=== PATIENT | male | born 1935 | race Caucasian/White ===

== ENCOUNTER 2019-09-26 07:17 | Outpatient (CLI) | payer MEDICARE, BC, SELFPAY ==
--- NOTE | 2019-09-28 13:12 | ONC FU_ITS ---
Dr. Davies follow up note Patient: Oli Aragon Unit #: [id number]: 1935 Dicatated By: Sae Davies M.D.Date of Visit:Sep 26, 2019 Onc Med Follow-up/Prog Note History of Present Illness: oli Mckeon, 83-year-old gentleman with history of prostate cancer diagnosed with LUZMARIA in June 2009, with his PSA was 16.8 in July 2009 underwent biopsy of prostrate gland final report came back Stephanie score 9 (4+5) and Stephanie's 8 (4+4) CT scan of pelvis in showed right obturator lymph nodes , started on chemotherapy/biotherapy/hormonal therapy Lupron and in February 2010 study showed partial remission and no evidence of disease on scans from April 2010 to May 2010 received radiation therapy 7800 cGy to prostate and pelvic lymph nodes 4500 cGy From January 2013 to January 2014 treated with Casodex with a PSA response In January 2016 he was noted to have disease progression lymph node size was increasing on scan and PSA gone up to 12.8 On 08/04/2016 planning was to started Zytiga/prednisone , PSA 13.1 On 08/30/2016 PSA was 25.3 Now on Lupron last dose was in the January 2017 initially it was given every 3 month since last time his change to every 6 months ?reasons next one is due in July 2017 at [facility] Zytiga was under consideration but because of cost it was not started as per oncology note from [facility] on 01/17/2017 CT scan of abdomen pelvis done at [facility] on 01/17/2017 showed increasing retroperitoneal and right pelvic lymphadenopathy bone scan done on 01/17/2017 showed new foci of uptake involving the sacrum are suspicious for skeletal metastases and new focal uptake at the anterior lateral aspect of the right fourth rib is nonspecific for metastatic versus intraoral trauma incidental small right upper lobe pulmonary nodule is nonspecific follow-up suggested tolerating ADT wit lupron and Zytiga/prednisone well. Came for follow-up, complaining of fullness/pain in right anterior chest for the last few days, denies any trauma to the chest wall but recently he was diagnosed with pneumonia on the left side and now wondering whether pneumonia also regarding the right side otherwise no fever or chills, no hemoptysis or hematemesis, no nausea or vomiting. Occasionally hot flashes. Medications: PredniSONE 1 (5 mg) Tablet Oral b.i.d., Tums 1 (500 mg) Tablet, chewable Oral PRN, Tylenol PM Extra Strength 1 Tablet Liquid Oral at bedtime, Zytiga 1 (1000 mg) Tablet Oral daily Allergies: No Known Allergies. Review of Systems: Constitutional - No fevers, chills, night sweats, excessive fatigue or weight loss, ENMT - Positive for sinus congestion/drainage. No mouth sores. , Hematologic/Lymphatic - Patient states he bruises easily, Respiratory - No dyspnea on exertion, chest pain, cough or hemoptysis, Cardiovascular - No anginal chest pain, palpitations or orthopnea, Gastrointestinal - No nausea, vomiting, diarrhea, GI bleeding, or constipation, Genitourinary (M) - No hematuria, dysuria, increased frequency, urgency, hesitancy or incontinence, Musculoskeletal - Pt reports pressure in his ribs, Neurologic - No headache or dizziness. He does have a constant numbness/tingling feeling in his legs and feet, Psychiatric - He has some anxiety. But denies any depression. No insomnia. Vital Signs: Performed on Sep 26, 2019 08:19 Height - 76.00 in Weight - 193.0 lbs (HIGH) BSA - 2.18 sq.m BMI - 23.49 Temperature - 97.8 F (LOW) Pulse - 70 /min Respiration - 20 /min BP - 121/75 mm(hg) O2 Sat - 97 % Pain - 5 Performance Status: 1 - No physically strenuous activity, but ambulatory and able to carry out light or sedentary work (e.g. office work, light house work). (ECOG) Physical Examination: ENMT - No oral exudates, ulcers, masses, thrush or mucositis. Oropharynx clear. Tongue normal, Respiratory - Lungs are clear to auscultation without rhonchi or wheezing, Cardiovascular - Regular rate and rhythm of heart, Chest - Mild gynecomastia, no right anterior chest wall tenderness or skin changes or masses palpable, Abdomen - Non-tender, non-distended, Good bowel sounds. No guarding or rebound tenderness. No pulsatile masses, Extremities - no edema. Lab/Imaging: Test performed on Jul 31, 2019 07:20 Sodium 139 mmol/L Potassium 4.3 mmol/L Chloride 106 mmol/L CO2 23 mmol/L Anion Gap 14.3 BUN 19 mg/dL Creatinine 0.9 mg/dL Cr Clearance (Est) 78.11 mL/min Glucose 99 mg/dl Calcium 9.3 mg/dL Protein, Total 6.4 g/dL Albumin 4.7 g/dL Globulin 1.7 gm/dL Bilirubin, Total 0.3 mg/dL ALT (SGPT) 12 U/L AST (SGOT) 16 U/L Alkaline Phosphatase 52 U/L PSA 5.81 ng/mL Test performed on Apr 26, 2019 12:03 WBC 6.2 /cmm RBC 4.21 10 6/cmm HGB 14.4 g/dl HCT 41.1 % MCV 97.7 /cmm MCH 34.1 pg MCHC 35.0 g/dl RDW 13.4 % Platelet Count 174 10 3/cmm MPV 8.7 fl Neutrophils 4.8 10 3/cmm Lymphocytes 0.9 10 3/cmm Monocytes 0.5 10 3/cmm Eosinophils 0.0 10 3/cmm Basophils 0.0 10 3/cmm Neutrophil % 77.2 % Lymphocyte % 13.9 % Monocyte % 7.5 % Eosinophil % 0.7 % Basophils % 0.7 % Impression: Adenocarcinoma of prostate,Initially diagnosed in July 2009, status post radiation. Prostate and pelvic lymph nodesin April 2010, now with recurrent with pelvic/retroperitoneal lymphadenopathy and abnormal bone scan[facility]2017 showed no evidence of bony metastatic disease Rising PSA while on Lupron Started on zytiga 1000mg po qd and prednisone 5 mg twice a day on 06/08/2017 in his PSA on June 06/2017 was 134 Fatigue probably multifactorial including hormone withdrawal recent History of fall from the tree, with injury to tailbone and right ribs Bone scan done on 07/20/2017 at [facility] showed 2 new lesions, one in the region of T2 and on in the pelvis likely skeletal metastasis. Multiple ribs lesions probably due to trauma Chest x-ray done on 09/26/2017 showed normal visualized bone structures. No acute changes bone scan done on 09/28/2007 showed metastatic bone disease is stable with no progression or improvement since 07/20/2017 CT scan of abdomen pelvis done on 07/20/2017 at [facility] showed retroperitoneal lymphadenopathy is stable or slightly smaller soft tissue nodule in the Florence's pouch is unchanged New sclerotic lesion in the right anterior sacrum at S1 -S 3 may represent new focus of bone metastases Bone scan done on 07/24/2018 showed no new focus of increased activity, overall decreased activity of previously noted metastatic/posttraumatic changes since 09/28/2017. Unchanged cervicothoracic spine increase activity, probably related to prior anterior fusion changes. CT scan of pelvis done on 07/24/2018 showed no pelvic lymphadenopathy, a small soft tissue nodule measuring 10 mm inseparable from the right iliac vein, has been present since 01/17/2017 Venous Doppler study right leg shows no DVT CT scan of abdomen pelvis done on every 2018 showed incidental left renal cyst without change Prior appendicectomy Stable right-sided pericaval lymph node. Variable appearance of blastic metastatic lesion right sacral luis and right side of S1 vertebral body bone scan done on 11/03/2018 showed increased uptake in right sacrum stable T4 lesion, and resolution of left costochondral lesions Status post radiation therapy to right sacroiliac area Plan: Discussed with patient regarding right anterior chest wall heaviness/discomfort etiology is unclear could be due to gynecomastia due to ADT/Zytiga/prednisone and other possibility could be pleurisy or also concerned about bone metastases as recently his PSA was going up slowly. At this point we'll consider bone scan, plain x-ray right anterior ribs. Patient was advised to try Motrin 1 tablet by mouth every 8 hours for 48 hours. And also heating pad. Patient return to clinic in one month with a PSA, CMP, unless his above-mentioned workup shows otherwise. Signed By: Sae Davies M.D. <<Signature on File>>
== END 2019-09-26 07:18 | disposition home or self-care (01) ==
LOC: ONCMED 07:21
PROVIDERS: Family Provider Nurse Practitioner Family; Visit Provider Internal Medicine Hematology & Oncology
DX: C61 Malignant neoplasm of prostate (principal); C79.51 Secondary malignant neoplasm of bone; C77.5 Secondary and unspecified malignant neoplasm of intrapelvic lymph nodes; R97.21 Rising PSA following treatment for malignant neoplasm of prostate; Z79.818 Long term (current) use of other agents affecting estrogen receptors and estrogen levels; Z79.899 Other long term (current) drug therapy; Z98.1 Arthrodesis status; Z87.01 Personal history of pneumonia (recurrent)
CPT/HCPCS: 99214

== ENCOUNTER 2019-10-29 08:44 | Outpatient (CLI) | payer MEDICARE, BC, SELFPAY ==
--- NOTE | 2019-10-29 08:55 | NM_ITS ---
WS: [id number] NUCLEAR MEDICINE BONE SCAN Radiopharmaceutical: 24.1 Tc-99m MDP mCi IV Injection site: Right forearm Postinjection imaging delay: 1 hr CLINICAL INFORMATION: RE-STAGING EVALUATION/PROSTATE CANCER COMPARISON: , July 20, 2019, September 28, 2017, July 20, 2017, and May 11, 2017. FINDINGS: Bone lesions: Again seen is the area of increased activity involving the right posterior sacrum. This is improved slightly from previous. Stable to improved activity involving the right T4 level and rig ht posterior fourth rib lesions. No other abnormal foci of uptake today. No evidence of disease progr ession. No new areas of metastatic disease. Soft tissue contours: Normal. Kidneys: Normal. Other findings: None. NM/NM bone scan whole body* [id number] IMPRESSION: 1. No evidence of disease progression. No new areas of metastatic disease. 2. Stable to slightly improved metastatic lesion involving the right posterior sacrum 3. Additional stable to improved lesion involving the right T4 vertebral body and posterior fourth rib.
--- NOTE | 2019-10-29 08:55 | XR_ITS ---
WS: [id number] Chest 2 views, 10/29/2019 Clinical Data: PROSTATE CANCER/R SIDE RIB PAIN Comparison: PA and lateral chest, 09/26/2017 Findings: No nodules, masses or effusions are seen. The heart is normal. The pulmonary vascularity is not increased. No pneumonia or pneumothorax is seen. The aortic arch and descending aorta are tortuo us. The patient has had an anterior cervical fusion. XR/XR chest 2V* [id number] Impression: Atherosclerosis.
[2019-10-29 10:39] LABS: Alanine Aminotransferase 12 U/L (0-41); Albumin Level 3.9 g/dL (3.5-5.2); Alkaline Phosphatase 51 IU/L (40-130); Anion Gap 16.1 (5-19); Aspartate Amino Transferase 15 U/L (0-40); Blood Urea Nitrogen 14 mg/dL (8-23); Carbon Dioxide 22 mmol/L (22-29); Chloride 103 mmol/L (98-107); Globulin 2.8 g/dL (1.3-4.6); Glucose 96 mg/dL (65-115); Potassium 4.1 mmol/L (3.5-5.1); Sodium 137 mmol/L (136-145); Total Bilirubin 0.5 mg/dL (0.15-1.2); Total Protein 6.7 g/dL (6.6-8.7)
[2019-10-29 12:43] LABS: Basophils % 0.6 %; Eosinophils % 0.6 %; Hematocrit 40.5 % (42.0-52.0); Lymphocytes # 1.1 10^3/uL (0.8-4.8); Lymphocytes % 19.8 %; Mean Corpuscular HGB Conc 32.1 g/dL (30.0-36.0); Mean Corpuscular Hemoglobin 31.8 pg (28.0-34.0); Mean Platelet Volume 10.1 fL (7.4-10.4); Monocytes # 0.5 10^3/uL (0.2-0.9); Monocytes % 9.4 %; Neutrophils # 3.7 10^3/uL (1.8-7.7); Neutrophils % 69.2 %; Nucleated Red Blood Cells % 0 %; Platelet Count 182 10^3/cmm (130-400); Red Blood Count 4.09 10^6/uL (4.1-5.3); Red Cell Distribution Width 12.9 % (12.1-15.1); White Blood Count 5.3 10^3/uL (4.0-10.0)
== END 2019-10-29 08:45 | disposition home or self-care (01) ==
LOC: RAD 08:51
PROVIDERS: Family Provider Nurse Practitioner Family; PCP Nurse Practitioner Family; Visit Provider Internal Medicine Hematology & Oncology
DX: C61 Malignant neoplasm of prostate (principal); R07.81 Pleurodynia; I70.90 Unspecified atherosclerosis
CPT/HCPCS: 36415; 71046; 78306; 80053; 84153; 85025; A9561

== ENCOUNTER 2019-10-31 12:04 | Outpatient (CLI) | payer MEDICARE, BC, SELFPAY ==
[2019-10-31] MEDS: denosumab 120 mg SDV SUBCUT (13:39)
[2019-10-31] MEDS: leuprolide 22.5 mg Kit IM (13:43)
--- NOTE | 2019-10-31 16:42 | ONC FU_ITS ---
Dr. Davies follow up note Patient: Oli Aragon Unit #: [id number]: 1935 Dicatated By: Sae Davies M.D.Date of Visit:Oct 31, 2019 Onc Med Follow-up/Prog Note History of Present Illness: oli Mckeon, 83-year-old gentleman with history of prostate cancer diagnosed with LUZMARIA in June 2009, with his PSA was 16.8 in July 2009 underwent biopsy of prostrate gland final report came back Stephanie score 9 (4+5) and Stephanie's 8 (4+4) CT scan of pelvis in showed right obturator lymph nodes , started on chemotherapy/biotherapy/hormonal therapy Lupron and in February 2010 study showed partial remission and no evidence of disease on scans from April 2010 to May 2010 received radiation therapy 7800 cGy to prostate and pelvic lymph nodes 4500 cGy From January 2013 to January 2014 treated with Casodex with a PSA response In January 2016 he was noted to have disease progression lymph node size was increasing on scan and PSA gone up to 12.8 On 08/04/2016 planning was to started Zytiga/prednisone , PSA 13.1 On 08/30/2016 PSA was 25.3 Now on Lupron last dose was in the January 2017 initially it was given every 3 month since last time his change to every 6 months ?reasons next one is due in July 2017 at [facility] Zytiga was under consideration but because of cost it was not started as per oncology note from [facility] on 01/17/2017 CT scan of abdomen pelvis done at [facility] on 01/17/2017 showed increasing retroperitoneal and right pelvic lymphadenopathy bone scan done on 01/17/2017 showed new foci of uptake involving the sacrum are suspicious for skeletal metastases and new focal uptake at the anterior lateral aspect of the right fourth rib is nonspecific for metastatic versus intraoral trauma incidental small right upper lobe pulmonary nodule is nonspecific follow-up suggested tolerating ADT wit lupron and Zytiga/prednisone well.follow-up bone scan done on 10/29/2019 shows no evidence of disease progression, no new area of metastatic disease seen. Stable to slightly improved metastatic lesion involving the right posterior sacrum Additional stable to improved lesion involving the right T4 vertebral body and posterior fourth rib. Came for follow-up, complaining of right chest wall and mid back pain now progressive, no trauma to chest wall, no hemoptysis or hematemesis, no fever or chills, no nausea or vomiting, no diarrhea constipation, no dysuria hematuria. Occasionally hot flashes otherwise tolerating Lupron/Zytiga/prednisone /Xgeva, well Medications: PredniSONE 1 (5 mg) Tablet Oral b.i.d., Tums 1 (500 mg) Tablet, chewable Oral PRN, Tylenol PM Extra Strength 1 Tablet Liquid Oral at bedtime, Zytiga 1 (1000 mg) Tablet Oral daily Allergies: No Known Allergies. Review of Systems: Constitutional - No fevers, chills, night sweats, excessive fatigue or weight loss, ENMT - Positive for sinus congestion/drainage. No mouth sores. , Hematologic/Lymphatic - Patient states he bruises easily, Respiratory - No dyspnea on exertion, chest pain, cough or hemoptysis, Cardiovascular - No anginal chest pain, palpitations or orthopnea, Gastrointestinal - No nausea, vomiting, diarrhea, GI bleeding, or constipation, Genitourinary (M) - No hematuria, dysuria, increased frequency, urgency, hesitancy or incontinence, Musculoskeletal - Pt reports pressure in his ribs, Neurologic - No headache or dizziness. He does have a constant numbness/tingling feeling in his legs and feet, Psychiatric - He has some anxiety. But denies any depression. No insomnia. Vital Signs: Vitals are not available for this patient. Performance Status: 0 - Fully active, able to carry on all predisease activities without restrictions. (ECOG) Physical Examination: ENMT - No oral exudates, ulcers, masses, thrush or mucositis. Oropharynx clear. Tongue normal, Respiratory - Lungs are clear to auscultation without rhonchi or wheezing, Cardiovascular - Regular rate and rhythm of heart, Chest - mild discomfort in right upper chest wall and bilateral mild gynecomastia, Abdomen - Non-tender, non-distended, Good bowel sounds. No guarding or rebound tenderness. No pulsatile masses, Extremities - no edema or rash. Lab/Imaging: Test performed on Oct 29, 2019 12:40 WBC 5.3 10 3/uL RBC 4.09 10 6/uL HGB 13.0 g/dL HCT 40.5 % MCV 99.0 fL MCH 31.8 pg MCHC 32.1 g/dL RDW 12.9 % Platelet Count 182 10 3/cmm MPV 10.1 fL Neutrophils 3.7 10 3/uL Lymphocytes 1.1 10 3/uL Monocytes 0.5 10 3/uL Eosinophils 0.0 10 3/uL Basophils 0.0 10 3/uL Neutrophil % 69.2 % Lymphocyte % 19.8 % Monocyte % 9.4 % Eosinophil % 0.6 % Basophils % 0.6 % Test performed on Oct 29, 2019 09:35 Sodium 137 mmol/L Potassium 4.1 mmol/L Chloride 103 mmol/L CO2 22 mmol/L Anion Gap 16.1 BUN 14 mg/dL Creatinine 0.9 mg/dL Cr Clearance (Est) 78.3600 mL/min Glucose 96 mg/dL Calcium 9.0 mg/dL Protein, Total 6.7 g/dL Albumin 3.9 g/dL Globulin 2.8 g/dL Bilirubin, Total 0.5 mg/dL ALT (SGPT) 12 U/L AST (SGOT) 15 U/L Alkaline Phosphatase 51 IU/L PSA 8.70 ng/mL Impression: Adenocarcinoma of prostate,Initially diagnosed in July 2009, status post radiation. Prostate and pelvic lymph nodesin April 2010, now with recurrent with pelvic/retroperitoneal lymphadenopathy and abnormal bone scan. On Lupron at [facility] Bone scan done on 05/11/2017 showed no evidence of bony metastatic disease Rising PSA while on Lupron Started on zytiga 1000mg po qd and prednisone 5 mg twice a day on 06/08/2017 in his PSA on June 06/2017 was 134 Fatigue probably multifactorial including hormone withdrawal recent History of fall from the tree, with injury to tailbone and right ribs Bone scan done on 07/20/2017 at [facility] showed 2 new lesions, one in the region of T2 and on in the pelvis likely skeletal metastasis. Multiple ribs lesions probably due to trauma Chest x-ray done on 09/26/2017 showed normal visualized bone structures. No acute changes bone scan done on 09/28/2007 showed metastatic bone disease is stable with no progression or improvement since 07/20/2017 CT scan of abdomen pelvis done on 07/20/2017 at [facility] showed retroperitoneal lymphadenopathy is stable or slightly smaller soft tissue nodule in the Florence's pouch is unchanged New sclerotic lesion in the right anterior sacrum at S1 -S 3 may represent new focus of bone metastases Bone scan done on 07/24/2018 showed no new focus of increased activity, overall decreased activity of previously noted metastatic/posttraumatic changes since 09/28/2017. Unchanged cervicothoracic spine increase activity, probably related to prior anterior fusion changes. CT scan of pelvis done on 07/24/2018 showed no pelvic lymphadenopathy, a small soft tissue nodule measuring 10 mm inseparable from the right iliac vein, has been present since 01/17/2017 Venous Doppler study right leg shows no DVT CT scan of abdomen pelvis done on every 2018 showed incidental left renal cyst without change Prior appendicectomy Stable right-sided pericaval lymph node. Variable appearance of blastic metastatic lesion right sacral luis and right side of S1 vertebral body bone scan done on 11/03/2018 showed increased uptake in right sacrum stable T4 lesion, and resolution of left costochondral lesions Status post radiation therapy to right sacroiliac area Follow-up bone scan done on 10/29/2019 shows no evidence of disease progression, no new area of metastatic disease Stable to slightly improved metastatic lesion involving the right posterior sacrum Additional stable to improve lesion involving the right T4 vertebral body and posterior fourth rib. Plan: Discussed with patient regarding his labs white blood count 5.3 hemoglobin 13.0 hematocrit 40.5 platelets 182,000 CMP within normal limits PSA 8.70 compared to 5.81 on 07/31/2019 Clinically, patient is doing well but now with progressive right chest wall/mid back pain his bone scan done on 10/29/2019 showed no evidence of disease progression, no new area of metastatic disease. Stable to improved lesion involving the right the for vertebral body and posterior fourth rib. Stable to slightly improved metastatic lesion involving the right posterior sacrum. Because of progressive PSA and right chest wall/mid back pain and now with stable rather improving bone scan finding, we will consider CT PET scan and MRI scan of thoracic spine to assess disease status. If CT PET scan/MRI thoracic spine remained inconclusive, then will consider symptomatic relief and also consider adding Casodex or may switched to another agent like enzalutamide or apalutamide . Patient return to clinic after CT PET scan for further discussion. Signed By: Sae Davies M.D. <<Signature on File>>
== END 2019-10-31 12:05 | disposition home or self-care (01) ==
LOC: ONCMED 12:05
PROVIDERS: Family Provider Nurse Practitioner Family; PCP Nurse Practitioner Family; Visit Provider Internal Medicine Hematology & Oncology
DX: C61 Malignant neoplasm of prostate (principal); C79.51 Secondary malignant neoplasm of bone; C77.5 Secondary and unspecified malignant neoplasm of intrapelvic lymph nodes; G89.3 Neoplasm related pain (acute) (chronic); Z79.818 Long term (current) use of other agents affecting estrogen receptors and estrogen levels; Z79.899 Other long term (current) drug therapy; Z92.3 Personal history of irradiation; Z91.81 History of falling
CPT/HCPCS: 96372; 96402; 99214; J0897; J9217

== ENCOUNTER 2019-11-07 09:56 | Outpatient (CLI) | payer MEDICARE, BC, SELFPAY ==
--- NOTE | 2019-11-07 10:04 | MR_ITS ---
WS: [id number] MRI THORACIC SPINE WITH CONTRAST TECHNIQUE: Sagittal T1, T2 and STIR imaging. Axial T2 imaging. Post gadolinium imaging was obtained. CLINICAL INFORMATION: HX OF CANCER;BACK PAIN;PROSTATE CANCER COMPARISON: Bone scan to 2019 FINDINGS: Mild thoracic curve. Mild thoracic kyphosis. No acute compression. Blastic well-circumscribed low sig nal metastatic lesions involving the T1 vertebral body and T5 vertebral body eccentric to the right a djacent to the pedicle. T1 lesion measures approximately 10 mm and T5 lesion measures approximately 1 4 mm. No abnormal gadolinium enhancement. No significant edema. No other visualized metastatic lesion s. Cord signal is normal. No high-grade central canal stenosis. No epidural disease. Mild chronic compression superior endplate T4 with incidental hemangiomas. Normal visualized thoracic aorta. Prior postoperative changes C5-C6 anterior cervical fusion. MR/MR thoracic spine [id number] IMPRESSION: 1. Blastic well-circumscribed metastatic lesions involving the T1 and T5 verte bral bodies likely previously treated. No significant edema or enhancement. 2. No other visualized metastatic lesions. 3. Cord signal is normal. No high-grade central canal stenosis. 4. Mild chronic compression superior endplate T4 with incidental hemangiomas.
== END 2019-11-07 09:57 | disposition home or self-care (01) ==
LOC: RADSHAW 10:01
PROVIDERS: Family Provider Nurse Practitioner Family; PCP Nurse Practitioner Family; Visit Provider Internal Medicine Hematology & Oncology
DX: C61 Malignant neoplasm of prostate (principal); Z85.9 Personal history of malignant neoplasm, unspecified; M54.9 Dorsalgia, unspecified; D18.09 Hemangioma of other sites
CPT/HCPCS: 72157; A9579

== ENCOUNTER 2019-11-14 09:34 | Outpatient (CLI) | payer MEDICARE, BC, SELFPAY ==
--- NOTE | 2019-11-14 16:43 | ONC FU_ITS ---
Dr. Davies follow up note Patient: Oli Aragon Unit #: [id number]: 1935 Dicatated By: Sae Davies M.D.Date of Visit:Nov 14, 2019 Onc Med Follow-up/Prog Note History of Present Illness: oli Mckeon, 83-year-old gentleman with history of prostate cancer diagnosed with LUZMARIA in June 2009, with his PSA was 16.8 in July 2009 underwent biopsy of prostrate gland final report came back Stephanie score 9 (4+5) and Stephanie's 8 (4+4) CT scan of pelvis in showed right obturator lymph nodes , started on chemotherapy/biotherapy/hormonal therapy Lupron and in February 2010 study showed partial remission and no evidence of disease on scans from April 2010 to May 2010 received radiation therapy 7800 cGy to prostate and pelvic lymph nodes 4500 cGy From January 2013 to January 2014 treated with Casodex with a PSA response In January 2016 he was noted to have disease progression lymph node size was increasing on scan and PSA gone up to 12.8 On 08/04/2016 planning was to started Zytiga/prednisone , PSA 13.1 On 08/30/2016 PSA was 25.3 Now on Lupron last dose was in the January 2017 initially it was given every 3 month since last time his change to every 6 months ?reasons next one is due in July 2017 at [facility] Zytiga was under consideration but because of cost it was not started as per oncology note from [facility] on 01/17/2017 CT scan of abdomen pelvis done at [facility] on 01/17/2017 showed increasing retroperitoneal and right pelvic lymphadenopathy bone scan done on 01/17/2017 showed new foci of uptake involving the sacrum are suspicious for skeletal metastases and new focal uptake at the anterior lateral aspect of the right fourth rib is nonspecific for metastatic versus intraoral trauma incidental small right upper lobe pulmonary nodule is nonspecific follow-up suggested tolerating ADT wit lupron and Zytiga/prednisone well. Follow-up CT PET scan done on 11/10/2019 showed FDG negative, densely sclerotic osseous metastatic disease, consistent with sterilize malignancy. FDG positive lymph nodes in the right common iliac and mediastinal territories consistent with recurrent active malignancy. MRI scan of thoracic spine done on 11/07/2019 showed blastic well circumcised metastatic lesion involving T1 and T5 vertebral bodies likely previous treated, no significant edema or enhancement. No other visualized metastatic lesion. 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 But no history of trauma to his right shoulder or arm or chest wall. No night sweats, no fever or chills, no weight loss. Medications: PredniSONE 1 (5 mg) Tablet Oral b.i.d., Tums 1 (500 mg) Tablet, chewable Oral PRN, Tylenol PM Extra Strength 1 Tablet Liquid Oral at bedtime, Zytiga 1 (1000 mg) Tablet Oral daily Allergies: No Known Allergies. Review of Systems: Constitutional - No fevers, chills, night sweats, excessive fatigue or weight loss, ENMT - Positive for sinus congestion/drainage. No mouth sores. , Hematologic/Lymphatic - Patient states he bruises easily, Respiratory - No dyspnea on exertion, chest pain, cough or hemoptysis, Cardiovascular - No anginal chest pain, palpitations or orthopnea, Gastrointestinal - No nausea, vomiting, diarrhea, GI bleeding, or constipation, Genitourinary (M) - No hematuria, dysuria, increased frequency, urgency, hesitancy or incontinence, Musculoskeletal - Pt reports pressure in his ribs, Neurologic - No headache or dizziness. He does have a constant numbness/tingling feeling in his legs and feet, Psychiatric - He has some anxiety. But denies any depression. No insomnia. Vital Signs: Performed on Nov 14, 2019 09:48 Height - 76.00 in Weight - 194.8 lbs (HIGH) BSA - 2.19 sq.m BMI - 23.71 Temperature - 97.3 F (LOW) Pulse - 57 /min (LOW) Respiration - 20 /min BP - 140/83 mm(hg) O2 Sat - 98 % Pain - 5 Performance Status: 0 - Fully active, able to carry on all predisease activities without restrictions. (ECOG) Physical Examination: ENMT - . No oral exudates, ulcers, masses, thrush or mucositis. Oropharynx clear. Tongue normal, Respiratory - Lungs are clear to auscultation without rhonchi or wheezing, Cardiovascular - Regular rate and rhythm of heart, Abdomen - Non-tender, non-distended, Good bowel sounds. No guarding or rebound tenderness. No pulsatile masses, Extremities - no edema. Lab/Imaging: Test performed on Oct 29, 2019 12:40 WBC 5.3 10 3/uL RBC 4.09 10 6/uL HGB 13.0 g/dL HCT 40.5 % MCV 99.0 fL MCH 31.8 pg MCHC 32.1 g/dL RDW 12.9 % Platelet Count 182 10 3/cmm MPV 10.1 fL Neutrophils 3.7 10 3/uL Lymphocytes 1.1 10 3/uL Monocytes 0.5 10 3/uL Eosinophils 0.0 10 3/uL Basophils 0.0 10 3/uL Neutrophil % 69.2 % Lymphocyte % 19.8 % Monocyte % 9.4 % Eosinophil % 0.6 % Basophils % 0.6 % Test performed on Oct 29, 2019 09:35 Sodium 137 mmol/L Potassium 4.1 mmol/L Chloride 103 mmol/L CO2 22 mmol/L Anion Gap 16.1 BUN 14 mg/dL Creatinine 0.9 mg/dL Cr Clearance (Est) 78.3600 mL/min Glucose 96 mg/dL Calcium 9.0 mg/dL Protein, Total 6.7 g/dL Albumin 3.9 g/dL Globulin 2.8 g/dL Bilirubin, Total 0.5 mg/dL ALT (SGPT) 12 U/L AST (SGOT) 15 U/L Alkaline Phosphatase 51 IU/L PSA 8.70 ng/mL Impression: Adenocarcinoma of prostate,Initially diagnosed in July 2009, status post radiation. Prostate and pelvic lymph nodesin April 2010, now with recurrent with pelvic/retroperitoneal lymphadenopathy and abnormal bone scan[facility]2017 showed no evidence of bony metastatic disease Rising PSA while on Lupron Started on zytiga 1000mg po qd and prednisone 5 mg twice a day on 06/08/2017 in his PSA on June 06/2017 was 134 Fatigue probably multifactorial including hormone withdrawal recent History of fall from the tree, with injury to tailbone and right ribs Bone scan done on 07/20/2017 at [facility] showed 2 new lesions, one in the region of T2 and on in the pelvis likely skeletal metastasis. Multiple ribs lesions probably due to trauma Chest x-ray done on 09/26/2017 showed normal visualized bone structures. No acute changes bone scan done on 09/28/2007 showed metastatic bone disease is stable with no progression or improvement since 07/20/2017 CT scan of abdomen pelvis done on 07/20/2017 at [facility] showed retroperitoneal lymphadenopathy is stable or slightly smaller soft tissue nodule in the Florence's pouch is unchanged New sclerotic lesion in the right anterior sacrum at S1 -S 3 may represent new focus of bone metastases Bone scan done on 07/24/2018 showed no new focus of increased activity, overall decreased activity of previously noted metastatic/posttraumatic changes since 09/28/2017. Unchanged cervicothoracic spine increase activity, probably related to prior anterior fusion changes. CT scan of pelvis done on 07/24/2018 showed no pelvic lymphadenopathy, a small soft tissue nodule measuring 10 mm inseparable from the right iliac vein, has been present since 01/17/2017 Venous Doppler study right leg shows no DVT CT scan of abdomen pelvis done on every 2018 showed incidental left renal cyst without change Prior appendicectomy Stable right-sided pericaval lymph node. Variable appearance of blastic metastatic lesion right sacral luis and right side of S1 vertebral body bone scan done on 11/03/2018 showed increased uptake in right sacrum stable T4 lesion, and resolution of left costochondral lesions Status post radiation therapy to right sacroiliac area Follow-up bone scan done on 10/29/2019 shows no evidence of disease progression, no new area of metastatic disease Stable to slightly improved metastatic lesion involving the right posterior sacrum Additional stable to improve lesion involving the right T4 vertebral body and posterior fourth rib. Plan: Discussed with patient regarding his CT PET scan which shows FDG negative, densely sclerotic osseous metastatic disease consistent with sterilize malignancy and central lymphadenopathy e.g. multiple FDG positive mediastinal lymph nodes and 1.8 cm lymph node in the right common iliac territory has SUV of 11.2 and other FDG positive nodes are present in the right common iliac territory down to the level of internal/external iliac bifurcation. MRI scan of thoracic spine showed no new bone metastases but blastic well circumcised metastatic lesion involving T1 and T5 vertebral body likely previously treated. Mild chronic compression superior Endplate T4 with incidental hemangiomas. His CT PET scan shows extensive central lymphadenopathy and his PSA is mildly elevated around 8, and concern is whether patient has second malignancies like low-grade lymphoma as PSA being mildly elevated and such an extensive central lymphadenopathy is less likely consistent with metastatic prostrate cancer unless his prostrate cancer is transforming into non-secretory type prostrate cancer. At this point we will consider lymph node biopsy, we will discuss with Dr. Cuevas regarding laparoscopic lymph node biopsy of right iliac lymph node if is not possible then will discuss with Dr. Dash regarding mediastinoscopy to obtain mediastinal lymph node. Patient will return to clinic 1 week after biopsy. Signed By: Sae Davies M.D. <<Signature on File>>
== END 2019-11-14 09:35 | disposition home or self-care (01) ==
LOC: ONCMED 09:37
PROVIDERS: Family Provider Nurse Practitioner Family; PCP Nurse Practitioner Family; Visit Provider Internal Medicine Hematology & Oncology
DX: C79.51 Secondary malignant neoplasm of bone (principal); C61 Malignant neoplasm of prostate; C77.5 Secondary and unspecified malignant neoplasm of intrapelvic lymph nodes; F41.9 Anxiety disorder, unspecified; R97.21 Rising PSA following treatment for malignant neoplasm of prostate; Z79.899 Other long term (current) drug therapy; Z79.818 Long term (current) use of other agents affecting estrogen receptors and estrogen levels; Z91.81 History of falling
CPT/HCPCS: 99214

== ENCOUNTER 2019-12-07 06:40 | Day surgery (SDC) | payer MEDICARE, BC, SELFPAY ==
[2019-12-06 15:55] VITALS: BMI 23.5
[2019-12-07] VITALS (9 sets, daily range): BP systolic 123–159; BP diastolic 56–96; PULSE 55–88; RESP 14–22; TEMP 36.1–36.6; O2SAT 94–99; BMI 26.2
[2019-12-07] MEDS: sodium chloride 0.9% 1,000 ML 30 ML IV (07:18)
--- NOTE | 2019-12-07 07:52 | ECG_ITS ---
Measurements Intervals [place] Rate: 52 P: 39 WV: 194 QRS: -64 QRSD: 146 T: -5 QT: 430 QTc: 402 SINUS BRADYCARDIA RIGHT BUNDLE BRANCH BLOCK [120+ ms QRS DURATION, UPRIGHT V1, 40+ ms S IN I/aVL/V4/V5/V6] LEFT ANTERIOR FASCICULAR BLOCK [QRS AXIS <= -45, QR IN I, RS IN II] No previous ECG available for comparison Electronically Signed On 12-07-2019 8:45:43 CDT by Bonilla Jimenez [email or web address]
--- NOTE | 2019-12-07 08:13 | P.ANESASSM_ITS ---
Pre-Anesthetic Assessment Pre-Anesthetic Assessment: Height/Weight: Height 1.83 m Weight 87.543 kg Temp Pulse Resp BP Pulse Ox 97 F L 55 L 18 141/87 96 12/07/19 07:11 12/07/19 07:11 12/07/19 07:11 12/07/19 07:11 12/07/19 07:11 Preop Diagnosis: Mediastinal lymphadenopathy with suspected malignancy Proposed Procedure: Operation Date: 12/07/19 09:00 Proposed Procedures p [place] [id number] R59.0(Not Applicable) - Herbie Dhaliwal MD Last Intake: 18:00 Social: Comment: brief and remote Exam: Pre-Anes Outpt Exam: alert, oriented x 3, clear to auscultation bilaterally and regular rate & rhythm Airway: Submandibular: WNL Cervical ROM: WNL MP: 1 Dentition: Partials CV/HEM: Comments: 2 blocks-moderate HENRY/no angina GI: GI: GERD Anesthetic Plan: ASA status: 3 Anesthesia: General Meds/Allergies 2 Current Medications: Current Medications Generic Name Dose Route Start Last Admin Trade Name Freq PRN Reason Stop Dose Admin Sodium Chloride 1,000 mls @ 30 ml s/hr 12/07/19 07:15 12/07/19 07:18 Sodium Chloride 0.9% IV 12/08/19 07:14 30 mls/hr .Q24H [place] Administration PFSH Anesthesia PFSH: Medical History (Updated 11/28/19 @ 10:50 by Alpesh Dash MD) Adenocarcinoma of prostate Mediastinal adenopathy (Unknown) Family History (Updated 11/28/19 @ 10:17 by Lacey Stroud LPN) Other Cancer Stroke Social History (Updated 11/28/19 @ 10:18 by Lacey Stroud LPN) Smoking and tobacco status: former smoker Alcohol intake: former Data Anesthesia Cardiac Studies: No Data to Display
--- NOTE | 2019-12-07 08:46 | P.HP_ITS ---
Same Day Surgery H&P Indication for Procedure/HPI DATE OF PROCEDURE: December 07, 2019 This is an 83-year-old gentleman coming in for endobronchial ultrasound-guided transbronchial needle aspiration of lymph nodes. The patient has a previous diagnosis of prostate cancer for which he sees Dr. Davies. The patient has been undergoing serial screening CT scans. A PET CT on November 10 revealed intense activity in the subcarinal lymph node. There is also right paratracheal and pelvic lymph node hypermetabolic activity. The patient does not have any significant complaints. No significant cough, sputum production or shortness of breath. No hemoptysis, orthopnea or paroxysmal nocturnal dyspnea. CHIEF COMPLAINT/INDICATIONFOR SURGICAL PROCEDURE: PET positive mediastinal lymphadenopathy in a patient with prostate cancer. PREOP DIAGNOSIS: Mediastinal lymphadenopathy with suspected malignancy PLANNED PROCEDRUE: Bronchoscopy with inspection of airway, possible endobronchial biopsies, endobronchial ultrasound-guided transbronchial needle aspiration of lymph nodes and control of bleeding. Operation Date: 12/07/19 09:00 Proposed Procedures p [place] [id number] R59.0(Not Applicable) - Herbie Dhaliwal MD Medications/Allergies* Home Medications Medication Instructions Recorded Confirmed Type abiraterone 500 mg tablet 1,000 mg PO DAILY 11/27/19 12/07/19 History calcium carbonate 200 mg calcium 200 mg PO Q4H PRN tab 11/27/19 12/07/19 History (500 mg) chewable tablet diphenhydramine 25 1 tab PO .q hs tab 11/27/19 12/07/19 History mg-acetaminophen 500 mg tablet prednisone 5 mg tablet 5 mg PO BID 11/27/19 12/07/19 History Allergies/Adverse Reactions Allergy/AdvReac Type Severity Reaction Status Date / Time No Known Allergies Allergy Unverified 11/27/19 10:42 Current Medications: Generic Name Dose Route Start Last Admin Trade Name Freq PRN Reason Stop Dose Admin Sodium Chloride 1,000 mls @ 30 mls/hr 12/07/19 07:15 12/07/19 07:18 Sodium Chloride 0.9% IV 12/08/19 07:14 30 mls/hr .Q24H [place] Administration Pertinent History/Comorbid Conditions* Medical History (Updated 11/28/19 @ 10:50 by Alpesh Dash MD) Adenocarcinoma of prostate Mediastinal adenopathy (Unknown) Family History (Updated 11/28/19 @ 10:17 by Lacey Stroud LPN) Cancer Stroke Social History Smoking and tobacco status: former smoker Alcohol intake: former Pertinent Exam Findings alert, oriented x 3, clear to auscultation bilaterally and regular rate & rhythm Related Problem List Diagnoses (1) Mediastinal lymphadenopathy: Additional Information: The patient is here with PET positive subcarinal lymphadenopathy. He has a history of about 6 years of smoking. Going to perform the EBUS. And the plan is for the patient to go back home after the procedure. (2) Prostate cancer: Additional Information: The lesion could represent metastatic prostate cancer. The patient will follow-up with me in 2 weeks time. Recommendations Surgery/Procedure today Coding Level of Care Code Acute Clinical Athletic Instructor for Ike Treviño Diagnoses Mediastinal lymphadenopathy R59.0 Prostate cancer C61
[2019-12-07] MEDS: EPINEPHrine 1 mg/mL INJ XX (10:40)
--- NOTE | 2019-12-07 11:29 | SUR.OPER ---
ebus balloon removed intact. one cytology specimen given to Keri in lab. Lab aware other 2 cyt[address] specimens given to Dr Mi
--- NOTE | 2019-12-07 11:30 | SUR.PHASEI ---
1128 PATIENT TO PACU AT THIS TIME FROM OR. RR EVEN AND UNLABORED. PLACED ON SIMPLE MASK AT 8L, SPO2 98%. PATIENT UNRESPONSIVE TO VERBAL STIMULI AT THIS TIME. PROTECTING AIRWAY.
--- NOTE | 2019-12-07 11:30 | PM.OP ---
Operative Report Date of procedure: December 07, 2019 Pre-op Diagnosis: Mediastinal lymphadenopathy with suspected malignancy Post-op diagnosis: same Brief History: 83-year-old gentleman with a history of prostate cancer comes in with hypermetabolic subcarinal lymph node on PET CT scan. Procedure: Name of the procedure: Bronchoscopy with inspection of the airway, bronchoalveolar lavage, endobronchial biopsies, endobronchial ultrasound-guided transbronchial needle aspiration of lymph node and control of bleeding. Indication: Mediastinal lymphadenopathy in a patient with prostate cancer Anesthesia: General anesthesia. Local anesthesia: The margot in the right and left mainstem bronchi were anesthetized with 1% lidocaine, 3 mL. Description of the procedure: The procedure was explained to the patient and the consent was obtained. The patient was brought to the OR. The patient underwent endotracheal intubation for general anesthesia. Following induction of general anesthesia, the bronchoscope was advanced through the ET tube. The lower trachea appeared to be normal, no endotracheal lesion was seen. The margot was sharp. The margot, the right and left mainstem bronchi are anesthetized with 1% lidocaine. In a systematic manner bilateral bronchial tree was then examined. The bronchoscope was advanced into the left mainstem bronchus. There was no erythema,mucus and areas of cobblestoning. The left upper lobe, lingula and left lower lobe bronchi were examined up to the third subsegmental level and no abnormalities were identified. There is no endobronchial lesion, active bleeding or mucous plug. The bronchoscope was then introduced into the right mainstem bronchus. The right upper lobe, right middle lobe and right lower lobe bronchi were examined up to the third subsegmental level and no abnormalities were identified. Anthracotic pigmentation was noted throughout the lung. Endobronchial biopsies were performed from the right middle lobe from the suspected anthracotic pigmented area. The endobronchial ultrasound was introduced through the ET tube. Lymphadenopathy of the subcarinal lymph node group was identified. There was no other significant lymphadenopathy in the mediastinal hilar area. Multiple biopsies were performed from the subcarinal lymph node. Samples: 1. The endobronchial biopsies are sent for histopathology. 2. The transbronchial needle aspiration of station 7 was sent for cytology. Multiple samples were obtained. Complications: There was no immediate complications. Duration of the procedure: 50 minutes.
--- NOTE | 2019-12-07 11:55 | SUR.PHASEI ---
1154 PATIENT TO OPS AT THIS TIME. NO DISTRESS. RR EVEN AND UNLABORED. PATIENT TOLERATING ICE CHIPS WELL.
[2019-12-07] MEDS: ondansetron 2 mg/ML SDV 2 mL 4 MG IVP (12:11)
== END 2019-12-07 13:45 | disposition home or self-care (01) ==
PROVIDERS: Family Provider Nurse Practitioner Family; PCP Nurse Practitioner Family; Visit Provider Internal Medicine Critical Care Medicine
PROC: BB4BZZZ Ultrasonography of Pleura (ICD-10-PCS; CPT 31624; principal; 2019-12-07 09:00)
DX: R59.1 Generalized enlarged lymph nodes (principal); C61 Malignant neoplasm of prostate; Z87.891 Personal history of nicotine dependence; K21.9 Gastro-esophageal reflux disease without esophagitis
CPT/HCPCS: 31624; 31625 ×2; 12345; 88112; 88305; 93005; 93010; 96374; J0171; J1100; J2001; J2405; J2704; J2710; J3010; J3490; J7030

== ENCOUNTER 2019-12-20 12:30 | Outpatient (CLI) | payer MEDICARE, BC, SELFPAY ==
[2019-12-20 14:51] LABS: Basophils % 0.5 %; Eosinophils % 0.5 %; Hematocrit 42.8 % (42.0-52.0); Hemoglobin 13.7 g/dL (11.7-16.6); Lymphocytes # 1.2 10^3/uL (0.8-4.8); Lymphocytes % 18.6 %; Mean Corpuscular Hemoglobin 32.3 pg (28.0-34.0); Mean Corpuscular Volume 100.9 fL (80-94); Mean Platelet Volume 11.8 fL (7.4-10.4); Monocytes # 0.2 10^3/uL (0.2-0.9); Monocytes % 3.5 %; Neutrophils # 4.8 10^3/uL (1.8-7.7); Neutrophils % 76.3 %; Nucleated Red Blood Cells % 0 %; Platelet Count 183 10^3/cmm (130-400); Red Blood Count 4.24 10^6/uL (4.1-5.3); White Blood Count 6.2 10^3/uL (4.0-10.0)
[2019-12-20 15:05] LABS: Alanine Aminotransferase 13 U/L (0-41); Albumin Level 4.2 g/dL (3.5-5.2); Alkaline Phosphatase 59 IU/L (40-130); Anion Gap 19.9 (5-19); Aspartate Amino Transferase 16 U/L (0-40); Blood Urea Nitrogen 22 mg/dL (8-23); Calcium 9.6 mg/dL (8.5-10.5); Carbon Dioxide 22 mmol/L (22-29); Chloride 100 mmol/L (98-107); Globulin 2.4 g/dL (1.3-4.6); Glucose 118 mg/dL (65-115); Osmolality Calculated 284 mOsm/kg (285-295); Potassium 3.9 mmol/L (3.5-5.1); Sodium 138 mmol/L (136-145); Total Bilirubin 0.8 mg/dL (0.15-1.2); Total Protein 6.6 g/dL (6.6-8.7)
== END 2019-12-20 12:31 | disposition home or self-care (01) ==
LOC: ONCMED 14:57
PROVIDERS: Family Provider Nurse Practitioner Family; PCP Nurse Practitioner Family; Visit Provider Internal Medicine Hematology & Oncology
DX: C61 Malignant neoplasm of prostate (principal); C79.51 Secondary malignant neoplasm of bone; C77.5 Secondary and unspecified malignant neoplasm of intrapelvic lymph nodes
CPT/HCPCS: 80053; 85025

== ENCOUNTER 2019-12-21 10:57 | Outpatient (CLI) | payer MEDICARE, BC, SELFPAY ==
--- NOTE | 2019-12-21 11:44 | ONC FU_ITS ---
Dr. Davies follow up note Patient: Oli Aragon Unit #: [id number]: 1935 Dicatated By: Sae Davies M.D.Date of Visit:Dec 21, 2019 Onc Med Follow-up/Prog Note History of Present Illness: oli Mckeon, 83-year-old gentleman with history of prostate cancer diagnosed with LUZMARIA in June 2009, with his PSA was 16.8 in July 2009 underwent biopsy of prostrate gland final report came back Stephanie score 9 (4+5) and Stephanie's 8 (4+4) CT scan of pelvis in showed right obturator lymph nodes , started on chemotherapy/biotherapy/hormonal therapy Lupron and in February 2010 study showed partial remission and no evidence of disease on scans from April 2010 to May 2010 received radiation therapy 7800 cGy to prostate and pelvic lymph nodes 4500 cGy From January 2013 to January 2014 treated with Casodex with a PSA response In January 2016 he was noted to have disease progression lymph node size was increasing on scan and PSA gone up to 12.8 On 08/04/2016 planning was to started Zytiga/prednisone , PSA 13.1 On 08/30/2016 PSA was 25.3 Now on Lupron last dose was in the January 2017 initially it was given every 3 month since last time his change to every 6 months ?reasons next one is due in July 2017 at [facility] Zytiga was under consideration but because of cost it was not started as per oncology note from [facility] on 01/17/2017 CT scan of abdomen pelvis done at [facility] on 01/17/2017 showed increasing retroperitoneal and right pelvic lymphadenopathy bone scan done on 01/17/2017 showed new foci of uptake involving the sacrum are suspicious for skeletal metastases and new focal uptake at the anterior lateral aspect of the right fourth rib is nonspecific for metastatic versus intraoral trauma incidental small right upper lobe pulmonary nodule is nonspecific follow-up suggested tolerating ADT wit lupron and Zytiga/prednisone well. Follow-up CT PET scan done on 11/10/2019 showed FDG negative, densely sclerotic osseous metastatic disease, consistent with sterilize malignancy. FDG positive lymph nodes in the right common iliac and mediastinal territories consistent with recurrent active malignancy. MRI scan of thoracic spine done on 11/07/2019 showed blastic well circumcised metastatic lesion involving T1 and T5 vertebral bodies likely previous treated, no significant edema or enhancement. No other visualized metastatic lesion. Mild chronic compression superior endplate T4 with incidental hemangioma Was referred to pulmonology for evaluation of mediastinal lymphadenopathy, patient underwent bronchoscopy on 12/07/2019 right middle lobe endobronchial biopsy showed benign respiratory mucosa and cartilage. No malignancy identified. Came for follow-up, denies any specific complaints, no fever or chills, no nausea or vomiting, no diarrhea constipation, no new bony pains, no dysuria, occasionally hot flashes or mild fatigue. Otherwise tolerating Xgeva/Lupron/Zytiga/prednisone well Medications: PredniSONE 1 (5 mg) Tablet Oral b.i.d., Tums 1 (500 mg) Tablet, chewable Oral PRN, Tylenol PM Extra Strength 1 Tablet Liquid Oral at bedtime, Zytiga 1 (1000 mg) Tablet Oral daily Allergies: No Known Allergies. Review of Systems: Constitutional - No fevers, chills, night sweats, excessive fatigue or weight loss, ENMT - Positive for sinus congestion/drainage. No mouth sores. , Hematologic/Lymphatic - Patient states he bruises easily, Respiratory - No dyspnea on exertion, chest pain, cough or hemoptysis, Cardiovascular - No anginal chest pain, palpitations or orthopnea, Gastrointestinal - No nausea, vomiting, diarrhea, GI bleeding, or constipation, Genitourinary (M) - No hematuria, dysuria, increased frequency, urgency, hesitancy or incontinence, Musculoskeletal - Pt reports pressure in his ribs, Neurologic - No headache or dizziness. He does have a constant numbness/tingling feeling in his legs and feet, Psychiatric - He has some anxiety. But denies any depression. No insomnia. Vital Signs: Performed on Dec 21, 2019 11:00 Height - 76.00 in Weight - 191.4 lbs (LOW) BSA - 2.17 sq.m BMI - 23.30 Temperature - 97.7 F (LOW) Pulse - 82 /min Respiration - 18 /min BP - 134/75 mm(hg) O2 Sat - 96 % Pain - 0 Performance Status: 0 - Fully active, able to carry on all predisease activities without restrictions. (ECOG) Physical Examination: ENMT - . No oral exudates, ulcers, masses, thrush or mucositis. Oropharynx clear. Tongue normal, Respiratory - Lungs no wheezing, Abdomen - denies abdominal pain, Extremities - no edema seen. Lab/Imaging: Test performed on Dec 20, 2019 12:30 Sodium 138 mmol/L Potassium 3.9 mmol/L Chloride 100 mmol/L CO2 22 mmol/L Anion Gap 19.9 BUN 22 mg/dL Creatinine 1.0 mg/dL Cr Clearance (Est) 71.1800 mL/min Glucose 118 mg/dL Calcium 9.6 mg/dL Protein, Total 6.6 g/dL Albumin 4.2 g/dL Globulin 2.4 g/dL Bilirubin, Total 0.8 mg/dL ALT (SGPT) 13 U/L AST (SGOT) 16 U/L Alkaline Phosphatase 59 IU/L WBC 6.2 10 3/uL RBC 4.24 10 6/uL HGB 13.7 g/dL HCT 42.8 % MCV 100.9 fL MCH 32.3 pg MCHC 32.0 g/dL RDW 13.0 % Platelet Count 183 10 3/cmm MPV 11.8 fL Neutrophils 4.8 10 3/uL Lymphocytes 1.2 10 3/uL Monocytes 0.2 10 3/uL Eosinophils 0.0 10 3/uL Basophils 0.0 10 3/uL Neutrophil % 76.3 % Lymphocyte % 18.6 % Monocyte % 3.5 % Eosinophil % 0.5 % Basophils % 0.5 % Test performed on Oct 29, 2019 09:35 PSA 8.70 ng/mL Impression: Adenocarcinoma of prostate,Initially diagnosed in July 2009, status post radiation. Prostate and pelvic lymph nodesin April 2010, now with recurrent with pelvic/retroperitoneal lymphadenopathy and abnormal bone scan[facility]2017 showed no evidence of bony metastatic disease Rising PSA while on Lupron Started on zytiga 1000mg po qd and prednisone 5 mg twice a day on 06/08/2017 in his PSA on June 06/2017 was 134 Fatigue probably multifactorial including hormone withdrawal recent History of fall from the tree, with injury to tailbone and right ribs Bone scan done on 07/20/2017 at [facility] showed 2 new lesions, one in the region of T2 and on in the pelvis likely skeletal metastasis. Multiple ribs lesions probably due to trauma Chest x-ray done on 09/26/2017 showed normal visualized bone structures. No acute changes bone scan done on 09/28/2007 showed metastatic bone disease is stable with no progression or improvement since 07/20/2017 CT scan of abdomen pelvis done on 07/20/2017 at [facility] showed retroperitoneal lymphadenopathy is stable or slightly smaller soft tissue nodule in the Florence's pouch is unchanged New sclerotic lesion in the right anterior sacrum at S1 -S 3 may represent new focus of bone metastases Bone scan done on 07/24/2018 showed no new focus of increased activity, overall decreased activity of previously noted metastatic/posttraumatic changes since 09/28/2017. Unchanged cervicothoracic spine increase activity, probably related to prior anterior fusion changes. CT scan of pelvis done on 07/24/2018 showed no pelvic lymphadenopathy, a small soft tissue nodule measuring 10 mm inseparable from the right iliac vein, has been present since 01/17/2017 Venous Doppler study right leg shows no DVT CT scan of abdomen pelvis done on every 2018 showed incidental left renal cyst without change Prior appendicectomy Stable right-sided pericaval lymph node. Variable appearance of blastic metastatic lesion right sacral luis and right side of S1 vertebral body bone scan done on 11/03/2018 showed increased uptake in right sacrum stable T4 lesion, and resolution of left costochondral lesions Status post radiation therapy to right sacroiliac area Follow-up bone scan done on 10/29/2019 shows no evidence of disease progression, no new area of metastatic disease Stable to slightly improved metastatic lesion involving the right posterior sacrum Additional stable to improve lesion involving the right T4 vertebral body and posterior fourth rib. Plan: Discussed with patient regarding his labs white blood count 6.2 hemoglobin 13.7 crit 42.8 platelets 183,000 CMP within normal limits PSA is pending and his transbronchial biopsy which showed benign mucosal/cartilage no malignancy seen Clinically, patient doing well with no new signs symptoms tolerating Lupron/ Zytiga/prednisone/Xgeva well but with expected side effects e.g. occasionally hot flashes and generalized weakness. His recently done follow-up CT PET scan showed mediastinal lymphadenopathy and there was a concern regarding second malignancy as considering tumor burden, his PSA was only around 8.70. Patient underwent transbronchial biopsy and as per final pathology report there was no malignancy identified only benign respiratory mucosa and cartilage , whereas Dr. Dhaliwal , seating captain, was confident of good sampling At this point we have 2 options either repeating bronchoscopy and try to get sufficient and appropriate tissue for evaluation or consider mediastinoscopy. Patient opted for repeat bronchoscopy. In that case we will refer him back to Dr. Dhaliwal for evaluation for repeat bronchoscopy/transbronchial biopsy of mediastinal lymph node. Patient scheduled to return to clinic next month for his scheduled dose of Lupron and Xgeva, at that time we'll repeat his PSA again. Signed By: Sae Davies M.D. <<Signature on File>>
== END 2019-12-21 10:58 | disposition home or self-care (01) ==
LOC: ONCMED 10:59
PROVIDERS: Family Provider Nurse Practitioner Family; PCP Nurse Practitioner Family; Visit Provider Internal Medicine Hematology & Oncology
DX: C61 Malignant neoplasm of prostate (principal); C79.51 Secondary malignant neoplasm of bone; Z79.818 Long term (current) use of other agents affecting estrogen receptors and estrogen levels; Z79.52 Long term (current) use of systemic steroids; Z79.899 Other long term (current) drug therapy
CPT/HCPCS: 84153; 99214

== ENCOUNTER 2020-01-30 13:41 | Outpatient (CLI) | payer MEDICARE, BC, SELFPAY ==
[2020-01-30 14:12] LABS: Basophils % 0.5 %; Eosinophils % 0.4 %; Hematocrit 43.1 % (42.0-52.0); Hemoglobin 13.2 g/dL (11.7-16.6); Lymphocytes % 17.5 %; Mean Corpuscular HGB Conc 30.6 g/dL (30.0-36.0); Mean Corpuscular Hemoglobin 32.6 pg (28.0-34.0); Mean Corpuscular Volume 106.4 fL (80-94); Mean Platelet Volume 11.1 fL (7.4-10.4); Monocytes # 0.4 10^3/uL (0.2-0.9); Monocytes % 6.3 %; Neutrophils # 4.2 10^3/uL (1.8-7.7); Neutrophils % 74.6 %; Nucleated Red Blood Cells % 0 %; Platelet Count 190 10^3/cmm (130-400); Red Blood Count 4.05 10^6/uL (4.1-5.3); Red Cell Distribution Width 13.2 % (12.1-15.1); White Blood Count 5.6 10^3/uL (4.0-10.0)
[2020-01-30 15:37] LABS: Prostate Specific Antigen 17.69 ng/mL (0-4)
[2020-01-30 15:48] LABS: Alanine Aminotransferase 16 U/L (0-41); Albumin Level 4.1 g/dL (3.5-5.2); Alkaline Phosphatase 53 IU/L (40-130); Anion Gap 16.4 (5-19); Blood Urea Nitrogen 20 mg/dL (8-23); Calcium 8.9 mg/dL (8.5-10.5); Carbon Dioxide 23 mmol/L (22-29); Chloride 102 mmol/L (98-107); Globulin 2.3 g/dL (1.3-4.6); Glucose 97 mg/dL (65-115); Osmolality Calculated 280 mOsm/kg (285-295); Potassium 4.4 mmol/L (3.5-5.1); Sodium 137 mmol/L (136-145); Total Bilirubin 0.4 mg/dL (0.15-1.2); Total Protein 6.4 g/dL (6.6-8.7)
[2020-01-30 15:50] LABS: Aspartate Amino Transferase 20 U/L (0-40)
[2020-01-30] MEDS: leuprolide 22.5 mg Kit IM (17:14)
[2020-01-30] MEDS: denosumab 120 mg SDV SUBCUT (17:15)
--- NOTE | 2020-01-30 18:25 | ONC FU_ITS ---
Dr. Davies follow up note Patient: Oli Aragon Unit #: [id number]: 1935 Dicatated By: Sae Davies M.D.Date of Visit:January 30, 2020 Onc Med Follow-up/Prog Note History of Present Illness: oli Mckeon, 83-year-old gentleman with history of prostate cancer diagnosed with LUZMARIA in June 2009, with his PSA was 16.8 in July 2009 underwent biopsy of prostrate gland final report came back Stephanie score 9 (4+5) and Stephanie's 8 (4+4) CT scan of pelvis in showed right obturator lymph nodes , started on chemotherapy/biotherapy/hormonal therapy Lupron and in February 2010 study showed partial remission and no evidence of disease on scans from April 2010 to May 2010 received radiation therapy 7800 cGy to prostate and pelvic lymph nodes 4500 cGy From January 2013 to January 2014 treated with Casodex with a PSA response In January 2016 he was noted to have disease progression lymph node size was increasing on scan and PSA gone up to 12.8 On 08/04/2016 planning was to started Zytiga/prednisone , PSA 13.1 On 08/30/2016 PSA was 25.3 Now on Lupron last dose was in the January 2017 initially it was given every 3 month since last time his change to every 6 months ?reasons next one is due in July 2017 at [facility] Zytiga was under consideration but because of cost it was not started as per oncology note from [facility] on 01/17/2017 CT scan of abdomen pelvis done at [facility] on 01/17/2017 showed increasing retroperitoneal and right pelvic lymphadenopathy bone scan done on 01/17/2017 showed new foci of uptake involving the sacrum are suspicious for skeletal metastases and new focal uptake at the anterior lateral aspect of the right fourth rib is nonspecific for metastatic versus intraoral trauma incidental small right upper lobe pulmonary nodule is nonspecific follow-up suggested tolerating ADT wit lupron and Zytiga/prednisone well. Follow-up CT PET scan done on 11/10/2019 showed FDG negative, densely sclerotic osseous metastatic disease, consistent with sterilize malignancy. FDG positive lymph nodes in the right common iliac and mediastinal territories consistent with recurrent active malignancy. MRI scan of thoracic spine done on 11/07/2019 showed blastic well circumcised metastatic lesion involving T1 and T5 vertebral bodies likely previous treated, no significant edema or enhancement. No other visualized metastatic lesion. Mild chronic compression superior endplate T4 with incidental hemangioma Was referred to pulmonology for evaluation of mediastinal lymphadenopathy, patient underwent bronchoscopy on 12/07/2019 right middle lobe endobronchial biopsy showed benign respiratory mucosa and cartilage. No malignancy identified. Came for follow-up, denies any specific complaints, no fever or chills, no nausea or vomiting, no new bony pains, no diarrhea constipation, occasionally hot flashes otherwise tolerating Lupron/Zytiga/prednisone/Xgeva well Medications: PredniSONE 1 (5 mg) Tablet Oral b.i.d., Tums 1 (500 mg) Tablet, chewable Oral PRN, Tylenol PM Extra Strength 1 Tablet Liquid Oral at bedtime, Zytiga 1 (1000 mg) Tablet Oral daily Allergies: No Known Allergies. Review of Systems: Constitutional - No fevers, chills, night sweats, excessive fatigue or weight loss. Appetite is fair. Energy level is appropriate, ENMT - Positive for sinus congestion/drainage. No mouth sores. , Hematologic/Lymphatic - Patient states he bruises easily, Respiratory - No dyspnea on exertion, chest pain, cough or hemoptysis, Cardiovascular - No anginal chest pain, palpitations or orthopnea, Gastrointestinal - No nausea, vomiting, diarrhea, GI bleeding, or constipation, Genitourinary (M) - No hematuria, dysuria, increased frequency, urgency, hesitancy or incontinence, Musculoskeletal - Pt denies pain, Neurologic - No headache or dizziness. He does have a constant numbness/tingling feeling in his legs and feet, Psychiatric - Positive for anxiety, no depression. No insomnia. Vital Signs: Performed on January 30, 2020 15:57 Height - 76.00 in Weight - 191 lbs (LOW) BSA - 2.17 sq.m BMI - 23.25 Temperature - 97.8 F (LOW) Pulse - 65 /min Respiration - 20 /min BP - 137/76 mm(hg) O2 Sat - 92 % (LOW) Pain - 0 Performance Status: 0 - Fully active, able to carry on all predisease activities without restrictions. (ECOG) Physical Examination: ENMT - no mouth sores, Respiratory - Lungs are clear , Cardiovascular - Regular rate and rhythm of heart, Abdomen - soft, bowel sounds present, Extremities - no visible edema. Lab/Imaging: Test performed on Dec 20, 2019 12:30 Sodium 138 mmol/L Potassium 3.9 mmol/L Chloride 100 mmol/L CO2 22 mmol/L Anion Gap 19.9 BUN 22 mg/dL Creatinine 1.0 mg/dL Cr Clearance (Est) 71.1800 mL/min Glucose 118 mg/dL Calcium 9.6 mg/dL Protein, Total 6.6 g/dL Albumin 4.2 g/dL Globulin 2.4 g/dL Bilirubin, Total 0.8 mg/dL ALT (SGPT) 13 U/L AST (SGOT) 16 U/L Alkaline Phosphatase 59 IU/L WBC 6.2 10 3/uL RBC 4.24 10 6/uL HGB 13.7 g/dL HCT 42.8 % MCV 100.9 fL MCH 32.3 pg MCHC 32.0 g/dL RDW 13.0 % Platelet Count 183 10 3/cmm MPV 11.8 fL Neutrophils 4.8 10 3/uL Lymphocytes 1.2 10 3/uL Monocytes 0.2 10 3/uL Eosinophils 0.0 10 3/uL Basophils 0.0 10 3/uL Neutrophil % 76.3 % Lymphocyte % 18.6 % Monocyte % 3.5 % Eosinophil % 0.5 % Basophils % 0.5 % PSA 13.30 ng/mL Impression: Adenocarcinoma of prostate,Initially diagnosed in July 2009, status post radiation. Prostate and pelvic lymph nodesin April 2010, now with recurrent with pelvic/retroperitoneal lymphadenopathy and abnormal bone scan. On Lupron at [facility] Bone scan done on 05/11/2017 showed no evidence of bony metastatic disease Rising PSA while on Lupron Started on zytiga 1000mg po qd and prednisone 5 mg twice a day on 06/08/2017 in his PSA on June 06/2017 was 134 Fatigue probably multifactorial including hormone withdrawal recent History of fall from the tree, with injury to tailbone and right ribs Bone scan done on 07/20/2017 at [facility] showed 2 new lesions, one in the region of T2 and on in the pelvis likely skeletal metastasis. Multiple ribs lesions probably due to trauma Chest x-ray done on 09/26/2017 showed normal visualized bone structures. No acute changes bone scan done on 09/28/2007 showed metastatic bone disease is stable with no progression or improvement since 07/20/2017 CT scan of abdomen pelvis done on 07/20/2017 at [facility] showed retroperitoneal lymphadenopathy is stable or slightly smaller soft tissue nodule in the Florence's pouch is unchanged New sclerotic lesion in the right anterior sacrum at S1 -S 3 may represent new focus of bone metastases Bone scan done on 07/24/2018 showed no new focus of increased activity, overall decreased activity of previously noted metastatic/posttraumatic changes since 09/28/2017. Unchanged cervicothoracic spine increase activity, probably related to prior anterior fusion changes. CT scan of pelvis done on 07/24/2018 showed no pelvic lymphadenopathy, a small soft tissue nodule measuring 10 mm inseparable from the right iliac vein, has been present since 01/17/2017 Venous Doppler study right leg shows no DVT CT scan of abdomen pelvis done on 2018 showed incidental left renal cyst without change Prior appendicectomy Stable right-sided pericaval lymph node. Variable appearance of blastic metastatic lesion right sacral luis and right side of S1 vertebral body bone scan done on 11/03/2018 showed increased uptake in right sacrum stable T4 lesion, and resolution of left costochondral lesions Status post radiation therapy to right sacroiliac area Follow-up bone scan done on 10/29/2019 shows no evidence of disease progression, no new area of metastatic disease Stable to slightly improved metastatic lesion involving the right posterior sacrum Additional stable to improve lesion involving the right T4 vertebral body and posterior fourth rib. Plan: Discussed with patient regarding his labs white blood count 5.6 hemoglobin 13.2 crit 43.1 platelets 190,000 and CMP within normal limits PSA 17.69 compared to 13.3 on 12/20/2019 and 8.7 on 10/29/2019 Clinically, patient is doing well with no new signs symptom but his PSA continued to go up and doubling time less than 6 months . Repeat bronchoscopy was under consideration for biopsy of mediastinal lymphadenopathy as earlier bronchoscopy/biopsy shows no sufficient tissue. Patient said he was waiting for 's call regarding reschedule but due to coronavirus elective procedure were postponed. In the meantime we will consider switching him to enzalutamide 160 mg by mouth daily and discontinue Zytiga/prednisone while continue with Lupron and Xgeva. We'll proceed with Xgeva today and then return to clinic in 1 month after initiation of enzalutamide with CBC CMP and PSA/testosterone All the side effects possible benefits associated with enzalutamide were discussed including but not limited to, generalized weakness and fatigue, hot flashes and in some patient seizure-like activity were mentioned further teaching will done by chemotherapy nurse. And we'll obtain approval from his insurance prior to the treatment. Signed By: Sae Davies M.D. <<Signature on File>>
== END 2020-01-30 13:42 | disposition home or self-care (01) ==
LOC: ONCMED 13:44
PROVIDERS: PCP Nurse Practitioner Family; Visit Provider Internal Medicine Hematology & Oncology
DX: C61 Malignant neoplasm of prostate (principal); C79.51 Secondary malignant neoplasm of bone; C77.8 Secondary and unspecified malignant neoplasm of lymph nodes of multiple regions; R53.83 Other fatigue; R97.21 Rising PSA following treatment for malignant neoplasm of prostate; Z79.899 Other long term (current) drug therapy; Z79.818 Long term (current) use of other agents affecting estrogen receptors and estrogen levels
CPT/HCPCS: 36415; 80053; 84153; 85025; 96372; 96402; 99214; J0897; J9217

== ENCOUNTER 2020-02-14 10:04 | Outpatient (CLI) | payer MEDICARE, BC, SELFPAY ==
--- NOTE | 2020-02-18 12:35 | ONC FU_ITS ---
[facility] Patient Note Patient: Oli Aragon Unit #: [id number]: 1935 Dictated By: Nadine GarrisonDate of Visit: February 14, 2020 Onc MED Follow-Up/Prog Note Chief Complaint: Prostrate cancer History of Present Illness: Mr. Aragon is an 83-year-old gentleman with history of prostate cancer diagnosed with LUZMARIA in June 2009, with his PSA was 16.8 In July 2009, he underwent biopsy of prosrate gland. The final report came back Augusta score 9 (4+5) and Stephanie's 8 (4+4) CT scan of pelvis in showed right obturator lymph nodes. He was started on chemotherapy/biotherapy/hormonal therapy Lupron. In February 2010, followup study showed partial remission and no evidence of disease on scans. from April 2010 to May 2010, he received radiation therapy to a total of 7800 cGy to prostate and pelvic lymph nodes 4500 cGy. From January 2013 to January 2014, he was treated with Casodex with a PSA response. In January 2016 he was noted to have disease progression lymph node size was increasing on scan and PSA gone up to 12.8 On 08/04/2016 plan was to started Zytiga/prednisone , PSA 13.1. On 08/30/2016 PSA was 25.3. His last dose of Lupron was in January 2017. Initially it was given every 3 months and was changed to every 6 months with followup at [facility]. Zytiga was under consideration but because of cost it was not started as per oncology note from [facility] on 01/17/2017. CT scan of abdomen pelvis done at [facility] on 01/17/2017 showed increasing retroperitoneal and right pelvic lymphadenopathy. A bone scan done on 01/17/2017 showed new foci of uptake involving the sacrum are suspicious for skeletal metastases and new focal uptake at the anterior lateral aspect of the right fourth rib. Which is nonspecific for metastatic versus intraoral trauma. Incidental small right upper lobe pulmonary nodule is nonspecific follow-up suggested. In October 2018 Zytiga was obtained for Mr. Cortes. Mr Aragon was tolerating ADT wit lupron and Zytiga/prednisone well. Follow-up CT PET scan done on 11/10/2019 showed FDG negative, densely sclerotic osseous metastatic disease, consistent with sterilize malignancy. FDG positive lymph nodes in the right common iliac and mediastinal territories consistent with recurrent active malignancy. MRI scan of thoracic spine done on 11/07/2019 showed blastic well circumcised metastatic lesion involving T1 and T5 vertebral bodies likely previous treated, no significant edema or enhancement. No other visualized metastatic lesion. Mild chronic compression superior endplate T4 with incidental hemangioma Mr Aragon was referred to pulmonology for evaluation of mediastinal lymphadenopathy. He underwent bronchoscopy on 12/07/2019 right middle lobe. Endobronchial biopsy showed benign respiratory mucosa and cartilage. No malignancy identified. His PSA has continued to elevate and Dr. Davies had recommended changing him to enzalutamide 160 mg p.o. daily and discontinue the Zytiga/prednisone. He will continue with the Xgeva and Lupron. Mr. Aragon is here today for follow-up. He is also due to start Xtandi today. He has obtained the medication via specialty pharmacist and has no questions at this time. He has taken oral chemo before and tolerated this well. He does have Compazine Ativan on hand should he need it. We also discussed using Imodium as needed for diarrhea. He has no complaints today he denies any bone pain. He states he is tired at times but can complete all of his ADLs done without assistance. His ECOG is 0. Past Medical History: Mr. Aragon's medical history is unremarkable. Past Surgical History: Neck surgery in 2014 Appendectomy in 1970 Allergies: No Known Allergies. Medications: Cipro 1 Tablet (of 500 mg) Oral b.i.d. PredniSONE 1 (5 mg) Tablet Oral daily Tums 1 (500 mg) Tablet, chewable Oral PRN Tylenol PM Extra Strength 1 Tablet Liquid Oral at bedtime Xtandi 4 Capsule (of 40 mg) Oral daily Family History: Mr. Aragon's mother at age 89. Mr. Aragon's father at age 94. Social History: Mr. Aragon is and he is retired. Mr. Aragon no longer smokes but had smoked 0.5 packs/day for 6 years. He has no history of drinking. Mr. Aragon reports the following support systems: lives with spouse, significant other, family, or friends, lives in own house, supportive family/friends willing to assist with needs, and adequate transportation available for expected visits. His diet consists of regular meals. He indicates his activity level as: daily activities. Review Of Symptoms: Constitutional Denies fevers, chills, night sweats, excessive fatigue or weight loss. Allergic/Immunologic No reactions. Eyes Denies significant visual changes. No diplopia. No amaurosis. ENMT Denies changes in hearing, sore throat, mouth sores, difficulty or changes in swallowing ability, and/or sinus drainage. Endocrine No diabetes, thyroid disease or hormone replacement. Denies hot flashes or night sweats. Hematologic/Lymphatic Denies easy bruising or bleeding. The patient denies any tender or palpable lymph nodes. Respiratory Denies dyspnea on exertion, chest pain, cough or hemoptysis. Denies orthopnea. Cardiovascular Denies anginal chest pain, palpitations or orthopnea. Gastrointestinal Denies nausea, vomiting, diarrhea, GI bleeding, or constipation. Denies change in bowel habits and/or stool color, no heartburn or early satiety. Genitourinary (M) Denies hematuria, dysuria, increased frequency, urgency, hesitancy or incontinence. Musculoskeletal Denies joint pain, swelling or redness. No decreased range of motion. Integumentary Denies chronic rashes, inflammation, ulcerations or skin changes. Neurologic Denies headache, blurred vision, and no areas of focal weakness or numbness. Normal gait. No sensory problems. Psychiatric Denies insomnia, depression, samson or mood swings. Vital Signs: Performed on February 14, 2020 10:35 Height - 76.00 in Weight - 189.0 lbs (LOW) BSA - 2.16 sq.m BMI - 23.01 Temperature - 97.6 F (LOW) Pulse - 62 /min Respiration - 17 /min BP - 111/70 mm(hg) O2 Sat - 95 % (LOW) Pain - 0,0 - Fully active, able to carry on all predisease activities without restrictions. (ECOG) Physical Examination: Constitutional Alert, oriented, no acute distress. Skin pink, warm and dry. Head Normocephalic; atraumatic. Eyes Conjunctivae and sclerae are clear and without icterus. Pupils are reactive and equal. Neck Supple without masses or thyromegaly. No jugular venous distension. Hematologic/Lymphatic No petechiae or purpura. No tender or palpable lymph nodes in the cervical or supraclavicular areas. Respiratory Lungs are clear to auscultation without rhonchi or wheezing. Cardiovascular Regular rate and rhythm of heart without murmurs,clicks, gallops or rubs. Abdomen Non-tender, non-distended, no masses or ascites. Good bowel sounds noted in all quads. No guarding or rebound tenderness. No pulsatile masses. Back/Spine Non-tender to palpation. Extremities No visible deformities, no cyanosis, clubbing or edema. Musculoskeletal No tenderness or swelling, normal range of motion without obvious weakness. Integumentary No rashes or lesions. Neurologic No sensory or motor deficits, normal cerebellar function, normal gait. Psychiatric Alert and oriented times three. Coherent speech. Verbalizes understanding of our discussions today. Laboratory:Test performed on January 30, 2020 15:07 Sodium 137 mmol/L Potassium 4.4 mmol/L Chloride 102 mmol/L CO2 23 mmol/L Anion Gap 16.4 BUN 20 mg/dL Creatinine 1.0 mg/dL Cr Clearance (Est) 68.59 mL/min Glucose 97 mg/dL Calcium 8.9 mg/dL Protein, Total 6.4 g/dL Albumin 4.1 g/dL Globulin 2.3 g/dL Bilirubin, Total 0.4 mg/dL ALT (SGPT) 16 U/L AST (SGOT) 20 U/L Alkaline Phosphatase 53 IU/L PSA 17.69 ng/mL Test performed on January 30, 2020 13:53 WBC 5.6 10 3/uL RBC 4.05 10 6/uL HGB 13.2 g/dL HCT 43.1 % MCV 106.4 fL MCH 32.6 pg MCHC 30.6 g/dL RDW 13.2 % Platelet Count 190 10 3/cmm MPV 11.1 fL Neutrophils 4.2 10 3/uL Lymphocytes 1.0 10 3/uL Monocytes 0.4 10 3/uL Eosinophils 0.0 10 3/uL Basophils 0.0 10 3/uL Neutrophil % 74.6 % Lymphocyte % 17.5 % Monocyte % 6.3 % Eosinophil % 0.4 % Basophils % 0.5 % Impression: Adenocarcinoma of prostate,Initially diagnosed in July 2009, status post radiation. Prostate and pelvic lymph nodesin April 2010, now with recurrent with pelvic/retroperitoneal lymphadenopathy and abnormal bone scan. On Lupron at [facility] Bone scan done on 05/11/2017 showed no evidence of bony metastatic disease Rising PSA while on Lupron Started on zytiga 1000mg po qd and prednisone 5 mg twice a day on 06/08/2017 in his PSA on June 06/2017 was 134 Fatigue probably multifactorial including hormone withdrawal recent History of fall from the tree, with injury to tailbone and right ribs Bone scan done on 07/20/2017 at [facility] showed 2 new lesions, one in the region of T2 and on in the pelvis likely skeletal metastasis. Multiple ribs lesions probably due to trauma Chest x-ray done on 09/26/2017 showed normal visualized bone structures. No acute changes bone scan done on 09/28/2007 showed metastatic bone disease is stable with no progression or improvement since 07/20/2017 CT scan of abdomen pelvis done on 07/20/2017 at [facility] showed retroperitoneal lymphadenopathy is stable or slightly smaller soft tissue nodule in the Florence's pouch is unchanged New sclerotic lesion in the right anterior sacrum at S1 -S 3 may represent new focus of bone metastases Bone scan done on 07/24/2018 showed no new focus of increased activity, overall decreased activity of previously noted metastatic/posttraumatic changes since 09/28/2017. Unchanged cervicothoracic spine increase activity, probably related to prior anterior fusion changes. CT scan of pelvis done on 07/24/2018 showed no pelvic lymphadenopathy, a small soft tissue nodule measuring 10 mm inseparable from the right iliac vein, has been present since 01/17/2017 Venous Doppler study right leg shows no DVT CT scan of abdomen pelvis done on every 2018 showed incidental left renal cyst without change Prior appendicectomy Stable right-sided pericaval lymph node. Variable appearance of blastic metastatic lesion right sacral luis and right side of S1 vertebral body bone scan done on 11/03/2018 showed increased uptake in right sacrum stable T4 lesion, and resolution of left costochondral lesions Status post radiation therapy to right sacroiliac area Follow-up bone scan done on 10/29/2019 shows no evidence of disease progression, no new area of metastatic disease Stable to slightly improved metastatic lesion involving the right posterior sacrum Additional stable to improve lesion involving the right T4 vertebral body and posterior fourth rib. Follow-up CT PET scan done on 11/10/2019 showed FDG negative, densely sclerotic osseous metastatic disease, consistent with sterilize malignancy. FDG positive lymph nodes in the right common iliac and mediastinal territories consistent with recurrent active malignancy. MRI scan of thoracic spine done on 11/07/2019 showed blastic well circumcised metastatic lesion involving T1 and T5 vertebral bodies likely previous treated, no significant edema or enhancement. No other visualized metastatic lesion. Mild chronic compression superior endplate T4 with incidental hemangioma Mr Aragon was referred to pulmonology for evaluation of mediastinal lymphadenopathy. He underwent bronchoscopy on 12/07/2019 right middle lobe. Endobronchial biopsy showed benign respiratory mucosa and cartilage. No malignancy identified. His PSA has continued to elevate and Dr. Davies had recommended changing him to enzalutamide 160 mg p.o. daily and discontinue the Zytiga/prednisone. He will continue with the Xgeva and Lupron. Plan: 1 Proceed with Xtandi 160 mg po daily starting today. 2 Compazine or Ativan prn nausea. 3. Continue Xgeva, but given every 3 months. Last given 01/30/2020. 4. Weekly CBC, CMP and PSA every month-may have labs drawn closer to home. 5. Plan for followup in 1 month unless he needs us before then and then he would just call us. 6. The patient and family were informed of the treatment plan and specific drugs were discussed. We also discussed how the medication works and identified common side effects including hot flashes, elevated triglycerides, headache, dizziness, hypertension, urticaria, flushing, fatigue, nausea, diarrhea, constipation, joint/muscle pain, heartburn, palpitations, alopecia is reported at < 5%. We discussed that they certainly need to let us know before taking any antioxidants or herbal or further dietary supplements, as we are unsure of how these agents react with the treatment plan and we request that they avoid these products for now. They are informed that it is okay to take the multivitamins. They verbally state that they understand to take all medications as directed by the provider unless otherwise indicated. Instructions for oral care with baking soda and salt water rinses as well as a guide for use of [id number] medication were provided with the treatment plan. They were given specific drug information. They have no questions and verbalized understanding and are willing to proceed with treatment at this time. The majority of this visit (greater than 45 mintues) was spent in face to face communication with this patient and/or his family in regards to plan of care, side effect identification and management. Signed By: Nadine Garrison-, AOCNP Sae Davies MD <<Signature on File>>
== END 2020-02-14 10:05 | disposition home or self-care (01) ==
LOC: ONCMED 10:09
PROVIDERS: PCP Nurse Practitioner Family; Visit Provider Nurse Practitioner
DX: C61 Malignant neoplasm of prostate (principal); C79.51 Secondary malignant neoplasm of bone; R97.21 Rising PSA following treatment for malignant neoplasm of prostate; Z79.818 Long term (current) use of other agents affecting estrogen receptors and estrogen levels; Z79.899 Other long term (current) drug therapy
CPT/HCPCS: 99214

== ENCOUNTER 2020-02-19 08:24 | Outpatient (CLI) | payer MEDICARE, BC, SELFPAY ==
[2020-02-19 09:28] LABS: Basophils % 0.7 %; Eosinophils # 0.1 10^3/uL (0.0-0.8); Eosinophils % 2.1 %; Hematocrit 39.2 % (42.0-52.0); Hemoglobin 12.3 g/dL (11.7-16.6); Lymphocytes # 0.8 10^3/uL (0.8-4.8); Lymphocytes % 14.4 %; Mean Corpuscular HGB Conc 31.4 g/dL (30.0-36.0); Mean Corpuscular Hemoglobin 32.6 pg (28.0-34.0); Monocytes # 0.6 10^3/uL (0.2-0.9); Monocytes % 9.5 %; Neutrophils # 4.2 10^3/uL (1.8-7.7); Neutrophils % 72.8 %; Nucleated Red Blood Cells % 0 %; Platelet Count 216 10^3/cmm (130-400); Red Blood Count 3.77 10^6/uL (4.1-5.3); Red Cell Distribution Width 13.1 % (12.1-15.1); White Blood Count 5.8 10^3/uL (4.0-10.0)
[2020-02-19 09:45] LABS: Alanine Aminotransferase 12 U/L (0-41); Albumin Level 3.5 g/dL (3.5-5.2); Alkaline Phosphatase 41 IU/L (40-130); Anion Gap 12.2 (5-19); Aspartate Amino Transferase 17 U/L (0-40); Blood Urea Nitrogen 15 mg/dL (8-23); Calcium 8.4 mg/dL (8.5-10.5); Carbon Dioxide 22 mmol/L (22-29); Chloride 107 mmol/L (98-107); Globulin 2.3 g/dL (1.3-4.6); Glucose 93 mg/dL (65-115); Osmolality Calculated 280 mOsm/kg (285-295); Potassium 4.2 mmol/L (3.5-5.1); Sodium 137 mmol/L (136-145); Total Bilirubin 0.4 mg/dL (0.15-1.2); Total Protein 5.8 g/dL (6.6-8.7)
== END 2020-02-19 08:25 | disposition home or self-care (01) ==
LOC: ONCMED 08:26
PROVIDERS: PCP Nurse Practitioner Family; Visit Provider Nurse Practitioner
DX: C61 Malignant neoplasm of prostate (principal); C79.51 Secondary malignant neoplasm of bone; C77.5 Secondary and unspecified malignant neoplasm of intrapelvic lymph nodes
CPT/HCPCS: 80053; 85025

== ENCOUNTER 2020-02-27 10:47 | Outpatient (CLI) | payer MEDICARE, BC, SELFPAY ==
[2020-02-27 11:40] LABS: Basophils # 0.1 10^3/uL (0.0-0.1); Eosinophils # 0.2 10^3/uL (0.0-0.8); Eosinophils % 2.9 %; Hematocrit 39.7 % (42.0-52.0); Hemoglobin 12.7 g/dL (11.7-16.6); Lymphocytes # 1.2 10^3/uL (0.8-4.8); Lymphocytes % 23.7 %; Mean Corpuscular Hemoglobin 32.7 pg (28.0-34.0); Mean Corpuscular Volume 102.3 fL (80-94); Mean Platelet Volume 10.5 fL (7.4-10.4); Monocytes # 0.6 10^3/uL (0.2-0.9); Neutrophils # 3.1 10^3/uL (1.8-7.7); Neutrophils % 59.8 %; Nucleated Red Blood Cells % 0 %; Platelet Count 224 10^3/cmm (130-400); Red Blood Count 3.88 10^6/uL (4.1-5.3); White Blood Count 5.1 10^3/uL (4.0-10.0)
[2020-02-27 12:09] LABS: Alanine Aminotransferase 10 U/L (0-41); Albumin Level 3.8 g/dL (3.5-5.2); Alkaline Phosphatase 47 IU/L (40-130); Anion Gap 15.3 (5-19); Aspartate Amino Transferase 17 U/L (0-40); Blood Urea Nitrogen 18 mg/dL (8-23); Calcium 8.9 mg/dL (8.5-10.5); Carbon Dioxide 23 mmol/L (22-29); Chloride 106 mmol/L (98-107); Globulin 2.3 g/dL (1.3-4.6); Glucose 95 mg/dL (65-115); Osmolality Calculated 286 mOsm/kg (285-295); Potassium 4.3 mmol/L (3.5-5.1); Sodium 140 mmol/L (136-145); Total Bilirubin 0.5 mg/dL (0.15-1.2); Total Protein 6.1 g/dL (6.6-8.7)
== END 2020-02-27 10:48 | disposition home or self-care (01) ==
LOC: ONCMED 10:51
PROVIDERS: PCP Nurse Practitioner Family; Visit Provider Nurse Practitioner
DX: C61 Malignant neoplasm of prostate (principal); C79.51 Secondary malignant neoplasm of bone; C77.5 Secondary and unspecified malignant neoplasm of intrapelvic lymph nodes
CPT/HCPCS: 36415; 80053; 84153; 85025

== ENCOUNTER 2020-02-28 14:45 | Outpatient (CLI) | payer MEDICARE, BC, SELFPAY ==
--- NOTE | 2020-02-28 15:53 | ONC FU_ITS ---
Dr. Davies follow up note Patient: Oli Aragon Unit #: [id number]: 1935 Dicatated By: Sae Davies M.D.Date of Visit:Feb 28, 2020 Onc Med Follow-up/Prog Note History of Present Illness: Mr. Aragon is an 84-year-old gentleman with history of prostate cancer diagnosed with LUZMARIA in June 2009, with his PSA was 16.8 In July 2009, he underwent biopsy of prosrate gland. The final report came back Woodland score 9 (4+5) and Stephanie's 8 (4+4) CT scan of pelvis in showed right obturator lymph nodes. He was started on chemotherapy/biotherapy/hormonal therapy Lupron. In February 2010, followup study showed partial remission and no evidence of disease on scans. from April 2010 to May 2010, he received radiation therapy to a total of 7800 cGy to prostate and pelvic lymph nodes 4500 cGy. From January 2013 to January 2014, he was treated with Casodex with a PSA response. In January 2016 he was noted to have disease progression lymph node size was increasing on scan and PSA gone up to 12.8 On 08/04/2016 plan was to started Zytiga/prednisone , PSA 13.1. On 08/30/2016 PSA was 25.3. His last dose of Lupron was in January 2017. Initially it was given every 3 months and was changed to every 6 months with followup at [facility]. Zytiga was under consideration but because of cost it was not started as per oncology note from [facility] on 01/17/2017. CT scan of abdomen pelvis done at [facility] on 01/17/2017 showed increasing retroperitoneal and right pelvic lymphadenopathy. A bone scan done on 01/17/2017 showed new foci of uptake involving the sacrum are suspicious for skeletal metastases and new focal uptake at the anterior lateral aspect of the right fourth rib. Which is nonspecific for metastatic versus intraoral trauma. Incidental small right upper lobe pulmonary nodule is nonspecific follow-up suggested. In October 2018 Zytiga was obtained for Mr. Cortes. Mr Aragon was tolerating ADT wit lupron and Zytiga/prednisone well. Follow-up CT PET scan done on 11/10/2019 showed FDG negative, densely sclerotic osseous metastatic disease, consistent with sterilize malignancy. FDG positive lymph nodes in the right common iliac and mediastinal territories consistent with recurrent active malignancy. MRI scan of thoracic spine done on 11/07/2019 showed blastic well circumcised metastatic lesion involving T1 and T5 vertebral bodies likely previous treated, no significant edema or enhancement. No other visualized metastatic lesion. Mild chronic compression superior endplate T4 with incidental hemangioma Mr Aragon was referred to pulmonology for evaluation of mediastinal lymphadenopathy. He underwent bronchoscopy on 12/07/2019 right middle lobe. Endobronchial biopsy showed benign respiratory mucosa and cartilage. No malignancy identified. His PSA has continued to elevate and had recommended changing him to enzalutamide 160 mg p.o. daily and discontinue the Zytiga/prednisone. He will continue with the Xgeva and Lupron. started Xtandi On February 09, 2020 Came for follow-up of, complaining of mild queasiness and poor appetite since he is on Xtandi, was also feeling weak and rundown since he discontinue Zytiga/prednisone, his primary care physician gave him prednisone 5 mg p.o. daily with that he started feeling somewhat better otherwise tolerating Xtandi well, no diarrhea, no abdominal pain, no fever or chills, no vomiting. No dysuria. But lost about 3 pounds since last because of poor appetite Medications: Cipro 1 Tablet (of 500 mg) Oral b.i.d., PredniSONE 1 (5 mg) Tablet Oral daily, Tums 1 (500 mg) Tablet, chewable Oral PRN, Tylenol PM Extra Strength 1 Tablet Liquid Oral at bedtime, Xtandi 4 Capsule (of 40 mg) Oral daily Allergies: No Known Allergies. Review of Systems: Review of Systems is not available for this patient. Vital Signs: Performed on Feb 28, 2020 14:51 Height - 76.00 in Weight - 187.2 lbs (LOW) BSA - 2.15 sq.m BMI - 22.79 Temperature - 98.1 F (LOW) Pulse - 76 /min Respiration - 22 /min BP - 122/73 mm(hg) O2 Sat - 97 % Pain - 0 Performance Status: 1 - No physically strenuous activity, but ambulatory and able to carry out light or sedentary work (e.g. office work, light house work). (ECOG) Physical Examination: ENMT - No mouth sores, no thrush, no jaundice, Respiratory - Lungs are clear to auscultation, Cardiovascular - Regular rate and rhythm of heart, Abdomen - Soft, bowel sounds present, Extremities - No visible edema or rash. Lab/Imaging: Test performed on January 30, 2020 15:07 Sodium 137 mmol/L Potassium 4.4 mmol/L Chloride 102 mmol/L CO2 23 mmol/L Anion Gap 16.4 BUN 20 mg/dL Creatinine 1.0 mg/dL Cr Clearance (Est) 68.59 mL/min Glucose 97 mg/dL Calcium 8.9 mg/dL Protein, Total 6.4 g/dL Albumin 4.1 g/dL Globulin 2.3 g/dL Bilirubin, Total 0.4 mg/dL ALT (SGPT) 16 U/L AST (SGOT) 20 U/L Alkaline Phosphatase 53 IU/L PSA 17.69 ng/mL Test performed on January 30, 2020 13:53 WBC 5.6 10 3/uL RBC 4.05 10 6/uL HGB 13.2 g/dL HCT 43.1 % MCV 106.4 fL MCH 32.6 pg MCHC 30.6 g/dL RDW 13.2 % Platelet Count 190 10 3/cmm MPV 11.1 fL Neutrophils 4.2 10 3/uL Lymphocytes 1.0 10 3/uL Monocytes 0.4 10 3/uL Eosinophils 0.0 10 3/uL Basophils 0.0 10 3/uL Neutrophil % 74.6 % Lymphocyte % 17.5 % Monocyte % 6.3 % Eosinophil % 0.4 % Basophils % 0.5 % Impression: Adenocarcinoma of prostate,Initially diagnosed in July 2009, status post radiation. Prostate and pelvic lymph nodesin April 2010, now with recurrent with pelvic/retroperitoneal lymphadenopathy and abnormal bone scan. On Elena at [facility] Bone scan done on 05/11/2017 showed no evidence of bony metastatic disease Rising PSA while on Lupron Started on zytiga 1000mg po qd and prednisone 5 mg twice a day on 06/08/2017 in his PSA on June 06/2017 was 134 Fatigue probably multifactorial including hormone withdrawal recent History of fall from the tree, with injury to tailbone and right ribs Bone scan done on 07/20/2017 at [facility] showed 2 new lesions, one in the region of T2 and on in the pelvis likely skeletal metastasis. Multiple ribs lesions probably due to trauma Chest x-ray done on 09/26/2017 showed normal visualized bone structures. No acute changes bone scan done on 09/28/2007 showed metastatic bone disease is stable with no progression or improvement since 07/20/2017 CT scan of abdomen pelvis done on 07/20/2017 at [facility] showed retroperitoneal lymphadenopathy is stable or slightly smaller soft tissue nodule in the Florence's pouch is unchanged New sclerotic lesion in the right anterior sacrum at S1 -S 3 may represent new focus of bone metastases Bone scan done on 07/24/2018 showed no new focus of increased activity, overall decreased activity of previously noted metastatic/posttraumatic changes since 09/28/2017. Unchanged cervicothoracic spine increase activity, probably related to prior anterior fusion changes. CT scan of pelvis done on 07/24/2018 showed no pelvic lymphadenopathy, a small soft tissue nodule measuring 10 mm inseparable from the right iliac vein, has been present since 01/17/2017 Venous Doppler study right leg shows no DVT CT scan of abdomen pelvis done on every 2018 showed incidental left renal cyst without change Prior appendicectomy Stable right-sided pericaval lymph node. Variable appearance of blastic metastatic lesion right sacral luis and right side of S1 vertebral body bone scan done on 11/03/2018 showed increased uptake in right sacrum stable T4 lesion, and resolution of left costochondral lesions Status post radiation therapy to right sacroiliac area Follow-up bone scan done on 10/29/2019 shows no evidence of disease progression, no new area of metastatic disease Stable to slightly improved metastatic lesion involving the right posterior sacrum Additional stable to improve lesion involving the right T4 vertebral body and posterior fourth rib. Follow-up CT PET scan done on 11/10/2019 showed FDG negative, densely sclerotic osseous metastatic disease, consistent with sterilize malignancy. FDG positive lymph nodes in the right common iliac and mediastinal territories consistent with recurrent active malignancy. MRI scan of thoracic spine done on 11/07/2019 showed blastic well circumcised metastatic lesion involving T1 and T5 vertebral bodies likely previous treated, no significant edema or enhancement. No other visualized metastatic lesion. Mild chronic compression superior endplate T4 with incidental hemangioma Mr Aragon was referred to pulmonology for evaluation of mediastinal lymphadenopathy. He underwent bronchoscopy on 12/07/2019 right middle lobe. Endobronchial biopsy showed benign respiratory mucosa and cartilage. No malignancy identified. His PSA has continued to elevate and had recommended changing him to enzalutamide 160 mg p.o. daily and discontinue the Zytiga/prednisone. He will continue with the Xgeva and Lupron. Plan: Discussed with patient regarding his labs white blood count 5.1 hemoglobin 12.7 hematocrit 39.7 platelets 224,000 CMP within normal limits PSA 16.56 compared to 17.69 on January 30, 2020 Clinically, patient is doing reasonably well, tolerating Xtandi well but with expected side effects like nausea/queasiness, poor appetite generalized weakness and fatigue which could be due to discontinuation of prednisone as part of Zytiga/prednisone regimen has since his PMD gave him prednisone 5 mg p.o. daily has some symptoms improved except mild queasiness and poor appetite thus he lost about 3 pounds since last visit. Patient started taking Xtandi on February 09, 2020, and tolerating reasonably well at this point we will add Marinol 5 mg p.o. twice daily to control his symptoms especially queasiness and poor appetite in the meantime advised to continue prednisone 5 mg p.o. daily and Case was discussed with Dr. murcia her acid recovery operator regarding repeating mediastinoscopy to obtain tissue to confirm whether mediastinal lymphadenopathy due to prostate cancer or second primary like low-grade lymphoma or other. Patient underwent mediastinoscopy earlier but it showed benign tissue and now Dr. Murcia, has scheduled him for CT scan of the chest to assess mediastinal lymphadenopathy, if there is any disease progression or stable then he will consider another bronchoscopy and transbronchial lymph node biopsy. In the meantime we will continue with daily Xtandi, and 3 monthly Lupron/Xgeva.And he will return to clinic in 1 month with CBC CMP and PSA Signed By: Sae Davies M.D. <<Signature on File>>
== END 2020-02-28 14:46 | disposition home or self-care (01) ==
PROVIDERS: PCP Nurse Practitioner Family; Visit Provider Internal Medicine Hematology & Oncology
DX: C61 Malignant neoplasm of prostate (principal); C79.51 Secondary malignant neoplasm of bone; C77.5 Secondary and unspecified malignant neoplasm of intrapelvic lymph nodes; Z79.818 Long term (current) use of other agents affecting estrogen receptors and estrogen levels
CPT/HCPCS: 99214

== ENCOUNTER 2020-03-05 09:41 | Outpatient (CLI) | payer MEDICARE, BC, SELFPAY ==
--- NOTE | 2020-03-05 15:00 | CT_ITS ---
WS: [id number] CT CHEST TECHNIQUE: Noncontrast CT of the chest with coronal and sagittal reformatted images. CLINICAL INFORMATION: Mediastinal lymphadenopathy COMPARISON: PET/CT November 10, [address] chest January 27, 2010 DLP: 835.[address] scans at [facility] use at least one of these dose optimization techniques: automat ed exposure control; mA and/or kV adjustment per patient size (includes targeted exams where dose is matched to clinical indication); or iterative reconstruction. FINDINGS: Recent PET CT demonstrated FDG negative diffuse sclerotic osseous metastatic disease consistent with prior treatment. In addition FDG positive lymph nodes were visualized in the mediastinum consistent w ith active disease. Stable previously described FDG avid normal and slightly prominent lymph nodes right hilum, left AP w indow, and subcarinal hilar nodes are stable. Subcarinal lymph node is slightly enlarged measuring 11 mm unchanged from previous. No evidence of progressed lymphadenopathy. Mild chronic emphysematous changes. No acute pulmonary infiltrates. Subsegmental atelectasis in the lung bases. Noncalcified fibrotic appearing nodule right upper lobe measuring 4 mm. Vascular calcification including coronary. No axillary lymphadenopathy. Left renal cyst measuring 5.1 CM. Adrenal glands are normal. Splenic granulomas. Sclerotic FDG negative lesions consistent with jessie ated osseous metastatic disease more prominent at T1, T5 and right fifth rib. CT/CT chest wo con [id number] IMPRESSION: 1. No evidence of progressed metastatic disease. 2. Previously described normal and slightly prominent FDG avid right greater t dwyer left hilar and subcarinal lymph nodes are stable. Largest lymph node is sub carinal measuring 11 mm. 3. Left renal cyst measuring 5.1 CCM. 4. Mild chronic emphysematous changes. No suspicious pulmonary parenchymal abn ormalities. 5. Tiny 4 mm slight fibrotic appearing noncalcified nodule in the right upper lobe stable since November 10, 2019. Recommend 6 month follow-up.
== END 2020-03-05 09:42 | disposition home or self-care (01) ==
LOC: RADWPI 09:46
PROVIDERS: Family Provider Nurse Practitioner Family; PCP Nurse Practitioner Family; Visit Provider Internal Medicine Critical Care Medicine
DX: R59.0 Localized enlarged lymph nodes (principal); N28.1 Cyst of kidney, acquired; J43.8 Other emphysema; R91.1 Solitary pulmonary nodule
CPT/HCPCS: 71250

== ENCOUNTER 2020-03-18 08:14 | Outpatient (CLI) | payer MEDICARE, BC, SELFPAY ==
[2020-03-18 08:58] LABS: Basophils # 0.1 10^3/uL (0.0-0.1); Basophils % 1.2 %; Eosinophils # 0.2 10^3/uL (0.0-0.8); Eosinophils % 4.2 %; Hematocrit 38.5 % (42.0-52.0); Hemoglobin 12.5 g/dL (11.7-16.6); Lymphocytes % 25.6 %; Mean Corpuscular HGB Conc 32.5 g/dL (30.0-36.0); Mean Corpuscular Hemoglobin 32.2 pg (28.0-34.0); Mean Corpuscular Volume 99.2 fL (80-94); Mean Platelet Volume 10.5 fL (7.4-10.4); Monocytes # 0.7 10^3/uL (0.2-0.9); Neutrophils # 2.1 10^3/uL (1.8-7.7); Neutrophils % 52.5 %; Nucleated Red Blood Cells % 0 %; Platelet Count 217 10^3/cmm (130-400); Red Blood Count 3.88 10^6/uL (4.1-5.3); Red Cell Distribution Width 12.8 % (12.1-15.1); White Blood Count 4.1 10^3/uL (4.0-10.0)
[2020-03-18 09:21] LABS: Testosterone Total 2.5 ng/dL (193-740)
[2020-03-18 09:32] LABS: Alanine Aminotransferase 8 U/L (0-41); Albumin Level 3.8 g/dL (3.5-5.2); Alkaline Phosphatase 55 IU/L (40-130); Anion Gap 16.4 (5-19); Aspartate Amino Transferase 16 U/L (0-40); Blood Urea Nitrogen 12 mg/dL (8-23); Calcium 8.7 mg/dL (8.5-10.5); Carbon Dioxide 21 mmol/L (22-29); Chloride 105 mmol/L (98-107); Globulin 2.3 g/dL (1.3-4.6); Glucose 81 mg/dL (65-115); Osmolality Calculated 283 mOsm/kg (285-295); Potassium 3.4 mmol/L (3.5-5.1); Sodium 139 mmol/L (136-145); Total Bilirubin 0.4 mg/dL (0.15-1.2); Total Protein 6.1 g/dL (6.6-8.7)
--- NOTE | 2020-03-18 10:44 | ONC FU_ITS ---
Dr. Davies follow up note Patient: Oli Aragon Unit #: [id number]: 1935 Dicatated By: Sae Davies M.D.Date of Visit:Mar 18, 2020 Onc Med Follow-up/Prog Note History of Present Illness: Mr. Aragon is an 84-year-old gentleman with history of prostate cancer diagnosed with LUZMARIA in June 2009, with his PSA was 16.8 In July 2009, he underwent biopsy of prosrate gland. The final report came back Effie score 9 (4+5) and Stephanie's 8 (4+4) CT scan of pelvis in showed right obturator lymph nodes. He was started on chemotherapy/biotherapy/hormonal therapy Lupron. In February 2010, followup study showed partial remission and no evidence of disease on scans. from April 2010 to May 2010, he received radiation therapy to a total of 7800 cGy to prostate and pelvic lymph nodes 4500 cGy. From January 2013 to January 2014, he was treated with Casodex with a PSA response. In January 2016 he was noted to have disease progression lymph node size was increasing on scan and PSA gone up to 12.8 On 08/04/2016 plan was to started Zytiga/prednisone , PSA 13.1. On 08/30/2016 PSA was 25.3. His last dose of Lupron was in January 2017. Initially it was given every 3 months and was changed to every 6 months with followup at [facility]. Zytiga was under consideration but because of cost it was not started as per oncology note from [facility] on 01/17/2017. CT scan of abdomen pelvis done at [facility] on 01/17/2017 showed increasing retroperitoneal and right pelvic lymphadenopathy. A bone scan done on 01/17/2017 showed new foci of uptake involving the sacrum are suspicious for skeletal metastases and new focal uptake at the anterior lateral aspect of the right fourth rib. Which is nonspecific for metastatic versus intraoral trauma. Incidental small right upper lobe pulmonary nodule is nonspecific follow-up suggested. In October 2018 Zytiga was obtained for Mr. Cortes. Mr Aragon was tolerating ADT wit lupron and Zytiga/prednisone well. Follow-up CT PET scan done on 11/10/2019 showed FDG negative, densely sclerotic osseous metastatic disease, consistent with sterilize malignancy. FDG positive lymph nodes in the right common iliac and mediastinal territories consistent with recurrent active malignancy. MRI scan of thoracic spine done on 11/07/2019 showed blastic well circumcised metastatic lesion involving T1 and T5 vertebral bodies likely previous treated, no significant edema or enhancement. No other visualized metastatic lesion. Mild chronic compression superior endplate T4 with incidental hemangioma Mr Aragon was referred to pulmonology for evaluation of mediastinal lymphadenopathy. He underwent bronchoscopy on 12/07/2019 right middle lobe. Endobronchial biopsy showed benign respiratory mucosa and cartilage. No malignancy identified. His PSA has continued to elevate and had recommended changing him to enzalutamide 160 mg p.o. daily and discontinue the Zytiga/prednisone. He will continue with the Xgeva and Lupron. started Xtandi On February 09, 2020 While waiting for repeat bronchoscopy, follow-up CT scan of chest was done on March 05, 2020 which showed stable previously described FDG avid normal and slightly prominent lymph nodes right hilum, left AP window and subcarinal hilar lymph nodes are stable. Subcarinal lymph node is slightly enlarged measuring 11 mm unchanged from previous scan done on November 10, 2019. No evidence of progressive lymphadenopathy. Mild chronic emphysematous changes seen. No acute pulmonary infiltrates. Noncalcified fibrotic appearing nodule right upper lobe measuring 4 mm. Sclerotic FDG negative lesions consistent with treated osseous metastatic disease more prominent at T1, T5 and right fifth rib. Came for follow-up, denies any specific complaint except poor appetite and generalized weakness and fatigue, patient said he felt better when he was restarted on low-dose prednisone and now he ran out of prescription and not taking it since then he started feeling washed out and now with poor appetite. But denies any headaches denies any visual disturbance denies any seizure-like activity denies any tachycardia or palpitation denies any shortness of breath denies any diarrhea or constipation. Tolerating Xtandi well Along with 3 monthly Lupron and Xgeva. Medications: Tums 1 (500 mg) Tablet, chewable Oral PRN, Tylenol PM Extra Strength 1 Tablet Liquid Oral at bedtime, Xtandi 4 Capsule (of 40 mg) Oral daily Allergies: No Known Allergies. Review of Systems: Review of Systems is not available for this patient. Vital Signs: Performed on Mar 18, 2020 10:04 Height - 76.00 in Weight - 188.0 lbs (HIGH) BSA - 2.16 sq.m BMI - 22.88 Temperature - 98.2 F (LOW) Pulse - 74 /min Respiration - 16 /min BP - 115/71 mm(hg) O2 Sat - 97 % Pain - 0 Performance Status: 1 - No physically strenuous activity, but ambulatory and able to carry out light or sedentary work (e.g. office work, light house work). (ECOG) Physical Examination: ENMT - No mouth sores, no thrush, no, Respiratory - Lungs are clear, Cardiovascular - Regular rate and rhythm of heart, Abdomen - Soft, bowel sounds present, Extremities - No visible edema or rash. Lab/Imaging: Test performed on Mar 18, 2020 08:35 Testosterone, Total 2.5 ng/dL WBC 4.1 10 3/uL RBC 3.88 10 6/uL HGB 12.5 g/dL HCT 38.5 % MCV 99.2 fL MCH 32.2 pg MCHC 32.5 g/dL RDW 12.8 % Platelet Count 217 10 3/cmm MPV 10.5 fL Neutrophils 2.1 10 3/uL Lymphocytes 1.0 10 3/uL Monocytes 0.7 10 3/uL Eosinophils 0.2 10 3/uL Basophils 0.1 10 3/uL Neutrophil % 52.5 % Lymphocyte % 25.6 % Monocyte % 16.0 % Eosinophil % 4.2 % Basophils % 1.2 % NRBC % 0 % PSA 15.870 ng/mL Test performed on January 30, 2020 15:07 Sodium 137 mmol/L Potassium 4.4 mmol/L Chloride 102 mmol/L CO2 23 mmol/L Anion Gap 16.4 BUN 20 mg/dL Creatinine 1.0 mg/dL Cr Clearance (Est) 68.59 mL/min Glucose 97 mg/dL Calcium 8.9 mg/dL Protein, Total 6.4 g/dL Albumin 4.1 g/dL Globulin 2.3 g/dL Bilirubin, Total 0.4 mg/dL ALT (SGPT) 16 U/L AST (SGOT) 20 U/L Alkaline Phosphatase 53 IU/L Impression: Adenocarcinoma of prostate,Initially diagnosed in July 2009, status post radiation. Prostate and pelvic lymph nodesin April 2010, now with recurrent with pelvic/retroperitoneal lymphadenopathy and abnormal bone scan. On Lupron at [facility] Bone scan done on 05/11/2017 showed no evidence of bony metastatic disease Rising PSA while on Lupron Started on zytiga 1000mg po qd and prednisone 5 mg twice a day on 06/08/2017 in his PSA on June 06/2017 was 134 Fatigue probably multifactorial including hormone withdrawal recent History of fall from the tree, with injury to tailbone and right ribs Bone scan done on 07/20/2017 at [facility] showed 2 new lesions, one in the region of T2 and on in the pelvis likely skeletal metastasis. Multiple ribs lesions probably due to trauma Chest x-ray done on 09/26/2017 showed normal visualized bone structures. No acute changes bone scan done on 09/28/2007 showed metastatic bone disease is stable with no progression or improvement since 07/20/2017 CT scan of abdomen pelvis done on 07/20/2017 at [facility] showed retroperitoneal lymphadenopathy is stable or slightly smaller soft tissue nodule in the Florence's pouch is unchanged New sclerotic lesion in the right anterior sacrum at S1 -S 3 may represent new focus of bone metastases Bone scan done on 07/24/2018 showed no new focus of increased activity, overall decreased activity of previously noted metastatic/posttraumatic changes since 09/28/2017. Unchanged cervicothoracic spine increase activity, probably related to prior anterior fusion changes. CT scan of pelvis done on 07/24/2018 showed no pelvic lymphadenopathy, a small soft tissue nodule measuring 10 mm inseparable from the right iliac vein, has been present since 01/17/2017 Venous Doppler study right leg shows no DVT CT scan of abdomen pelvis done on every 2018 showed incidental left renal cyst without change Prior appendicectomy Stable right-sided pericaval lymph node. Variable appearance of blastic metastatic lesion right sacral luis and right side of S1 vertebral body bone scan done on 11/03/2018 showed increased uptake in right sacrum stable T4 lesion, and resolution of left costochondral lesions Status post radiation therapy to right sacroiliac area Follow-up bone scan done on 10/29/2019 shows no evidence of disease progression, no new area of metastatic disease Stable to slightly improved metastatic lesion involving the right posterior sacrum Additional stable to improve lesion involving the right T4 vertebral body and posterior fourth rib. Follow-up CT PET scan done on 11/10/2019 showed FDG negative, densely sclerotic osseous metastatic disease, consistent with sterilize malignancy. FDG positive lymph nodes in the right common iliac and mediastinal territories consistent with recurrent active malignancy. MRI scan of thoracic spine done on 11/07/2019 showed blastic well circumcised metastatic lesion involving T1 and T5 vertebral bodies likely previous treated, no significant edema or enhancement. No other visualized metastatic lesion. Mild chronic compression superior endplate T4 with incidental hemangioma Mr Aragon was referred to pulmonology for evaluation of mediastinal lymphadenopathy. He underwent bronchoscopy on 12/07/2019 right middle lobe. Endobronchial biopsy showed benign respiratory mucosa and cartilage. No malignancy identified. His PSA has continued to elevate and had recommended changing him to enzalutamide 160 mg p.o. daily and discontinue the Zytiga/prednisone. He will continue with the Xgeva and Lupron. Plan: Discussed with patient regarding his labs white blood count 4.1 hemoglobin 12.5 hematocrit 30.8.5 platelets 217,000 CMP within normal limits PSA 15.87 compared to 16.56 on February 27, 2020 and 17.69 on January 30, 2020 And follow-up CT scan of chest done on March 05, 2020 which showed stable mild/moderate mediastinal lymphadenopathy. Clinically, patient doing well with no signs symptoms suggestive of disease progression, tolerating Xtandi well along with Lupron/Xgeva. As far as generalized weakness and fatigue is concerned could be multifactorial, patient was on low-dose prednisone with Zytiga for long time, so his symptoms could be due to recently discontinued low-dose prednisone, as patient said when his PMD restarted it it did help. So we will start him back on prednisone 5 mg p.o. twice a day and would not consider repeat bronchoscopy as his follow-up CT scan of chest showed stable mediastinal lymphadenopathy, now follow-up labs showed PSA is stabilized rather dropping slowly but gradually, will continue with Xtandi/Lupron/Xgeva then he will return to clinic in 1 month with CBC CMP and PSA/testosterone Signed By: Sae Davies M.D. <<Signature on File>>
== END 2020-03-18 08:15 | disposition home or self-care (01) ==
LOC: ONCMED 08:17
PROVIDERS: PCP Nurse Practitioner Family; Visit Provider Internal Medicine Hematology & Oncology
DX: C61 Malignant neoplasm of prostate (principal); C79.51 Secondary malignant neoplasm of bone; R59.0 Localized enlarged lymph nodes; R53.1 Weakness; R53.83 Other fatigue; Z79.818 Long term (current) use of other agents affecting estrogen receptors and estrogen levels; Z79.899 Other long term (current) drug therapy
CPT/HCPCS: 36415; 80053; 84153; 84403; 85025; 99214

== ENCOUNTER 2020-03-27 05:49 | Day surgery (SDC) | payer MEDICARE, BC, SELFPAY ==
[2020-03-26 13:35] VITALS: BMI 23.3
[2020-03-27] VITALS (7 sets, daily range): BP systolic 119–135; BP diastolic 75–79; PULSE 55–61; RESP 13–25; TEMP 36.1–36.6; O2SAT 94–98
[2020-03-27] MEDS: sodium chloride 0.9% 1,000 ML 30 ML IV (06:18)
--- NOTE | 2020-03-27 06:43 | ANES.PREANE2 ---
Pre-Anesthetic Assessment Pre-Anesthetic Assessment: Height/Weight: Height 1.93 m Weight 87.09 kg Temp Pulse Resp BP Pulse Ox 97.6 F 60 16 131/79 96 03/27/20 06:07 03/27/20 06:07 03/27/20 06:07 03/27/20 06:07 03/27/20 06:07 Preop Diagnosis: Mediastinal lymphadenopathy with suspected malignancy Proposed Procedure: Operation Date: 03/27/20 07:00 Proposed Procedures p Ebus(Not Applicable) - Herbie Dhaliwal MD Last intake: Intake Last Liquid Date 03/26/20 Last Liquid Time 18:00 Last Solid Date 03/26/20 Last Solid Time 18:00 Social: Social History: No alcohol and No tobacco Exam: Pre-Anes Outpt Exam: alert, oriented x 3, clear to auscultation bilaterally and regular rate & rhythm Airway: Submandibular: WNL Cervical ROM: WNL MP: 1 Dentition: Other (poor dentation) History/ROS: No significant history except as noted Pulmonary: Pulmonary: None reported CV/HEM: CV/HEM: None reported : Comments: h/o prostate ca Hepatic: Hepatic: None reported GI: GI: None reported Metabolic: Metabolic: None reported Musc/skel: Musc/skel: None reported Neuropsych: Neuropsych: None reported Anesthetic Plan: ASA status: 2 Anesthesia: Anesthesia Evaluation and General Risk of > 500 ml blood loss (7ml/kg in children): No Meds/Allergies Current Medications: Current Medications Generic Name Dose Route Start Last Admin Trade Name Freq PRN Reason Stop Dose Admin Sodium Chloride 1,000 mls @ 30 ml s/hr 03/27/20 05:45 03/27/20 06:18 Sodium Chloride 0.9% IV 03/28/20 05:44 30 mls/hr .Q24H [place] Administration PFSH Anesthesia PFSH: Medical History Adenocarcinoma of prostate Mediastinal adenopathy (Unknown) Surgical History H/O neck surgery History of appendectomy Family History Other Cancer Stroke Social History Smoking and tobacco status: former smoker Quit status (tobacco): has quit using tobacco Year quit tobacco: 1970 - 1PPD x 5 Years Second hand smoke exposure: No Alcohol intake: former Lives independently: Yes Household members: spouse Marital status: Current occupational status: retired History of recent travel: No Current gender identity: Male Data Anesthesia Cardiac Studies: No Data to Display
--- NOTE | 2020-03-27 06:44 | P.HPUD_ITS ---
Surgery/Procedure H&P Update DATE OF PROCEDURE: March 27, 2020 DATE H&P PERFORMED: 02/18/20 H&P UPDATE INFORMATION: I have reviewed H&P completed within last 30 days, I have examined patient prior to procedure and No changes to prior documentation PREOP DIAGNOSIS: Mediastinal lymphadenopathy with suspected malignancy with history of prost PLANNED PROCEDURE: Bronchoscopy with inspection of the airway, endobronchial so und guided transbronchial aspiration of lymph nodes. Special treatments. Operation Date: 03/27/20 07:00 Proposed Procedures p Ebus(Not Applicable) - Herbie Dhaliwal MD
--- NOTE | 2020-03-27 06:47 | P.HPUD_ITS ---
Surgery/Procedure H&P Update DATE OF PROCEDURE: March 27, 2020 DATE H&P PERFORMED: 02/18/20 H&P UPDATE INFORMATION: I have examined patient prior to procedure and H&P is in [facility] on date indicated PREOP DIAGNOSIS: Mediastinal lymphadenopathy with suspected malignancy PRIMARY INDICATION FOR PROCEDURE: This is an 84-year-old gentleman with a history of prostate cancerthis is an 83-year-old gentleman with a history of prostate cancer coming in for bronchoscopy evaluation for metastatic lymphadenopathy. The patient had a previous endobronchial sound guided transbronchial needle aspiration of station 7 lymph node we did not reveal any evidence of malignancy. On repeat CT scan the patient still had subcarinal lymphadenopathy. PLANNED PROCEDURE: Bronchoscopy inspection of the airway, endobronchial ultrasound-guided transbronchial aspiration of lymph nodes. Operation Date: 03/27/20 07:00 Proposed Procedures p Ebus(Not Applicable) - Herbie Dhaliwal MD Related Problem List Diagnoses (1) Mediastinal lymphadenopathy: (2) Prostate cancer:
[2020-03-27] MEDS: lidocaine 1% INJ 20 mL SUBCUT (07:15)
--- NOTE | 2020-03-27 08:35 | PM.OP ---
Operative Report Date of procedure: March 27, 2020 Pre-op Diagnosis: Mediastinal lymphadenopathy with suspected malignancy Post-op diagnosis: same Brief History: This is an 84-year-old gentleman coming in for bronchoscopy and endobronchial sound guided transbronchial aspiration of lymph nodes for suspicion of metastatic prostate cancer are lymphoma. Procedure: Name of the procedure: Bronchoscopy with inspection of the airway,endobronchial ultrasound-guided transbronchial needle aspiration of lymph nodes and control of bleeding. Indication: Right external lymphadenopathy Anesthesia: General anesthesia. Local anesthesia: The margot in the right and left mainstem bronchi were anesthetized with 1% lidocaine, 3 mL. Description of the procedure: The procedure was explained to the patient and the consent was obtained. The patient was brought to the OR. The patient underwent endotracheal intubation for general anesthesia. Following induction of general anesthesia, the bronchoscope was advanced through the ET tube. The lower trachea appeared to be normal. The margot was sharp. The margot, the right and left mainstem bronchi are anesthetized with 1% lidocaine. In a systematic manner bilateral bronchial tree was then examined. The bronchoscope was advanced into the left mainstem bronchus. The left upper lobe, lingula and left lower lobe bronchi were examined up to the third subsegmental level and no abnormalities were identified. There is no endobronchial lesion, active bleeding or mucous plug. The bronchoscope was then introduced into the right mainstem bronchus. The right upper lobe, right middle lobe and right lower lobe bronchi were examined up to the third subsegmental level and no abnormalities were identified. 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 The endobronchial ultrasound was introduced through the ET tube. Lymphadenopathy and subcarinal lymph node was identified. There is no significant hilar lymphadenopathy. Fine-needle aspiration was performed from station 7 lymph nodes. Samples: 1. The fine-needle aspiration from station 7 lymph node was sent for cytology. Complications: There was no immediate complications. The patient was extubated and brought to the PACU in stable condition.
== END 2020-03-27 09:30 | disposition home or self-care (01) ==
PROVIDERS: PCP Nurse Practitioner Family; Visit Provider Internal Medicine Critical Care Medicine
PROC: BB4BZZZ Ultrasonography of Pleura (ICD-10-PCS; principal; 2020-03-27 07:00)
PROC: 0BJ08ZZ Inspection of Tracheobronchial Tree, Via Natural or Artificial Opening Endoscopic (ICD-10-PCS; CPT 31622; 2020-03-27 07:00)
DX: R59.1 Generalized enlarged lymph nodes (principal); Z85.46 Personal history of malignant neoplasm of prostate; Z87.891 Personal history of nicotine dependence; Z79.52 Long term (current) use of systemic steroids; J30.9 Allergic rhinitis, unspecified
CPT/HCPCS: 12345; 31628; 88112; 88173; 88305; J2370; J2704; J3010; J3490; J7030

== ENCOUNTER 2020-04-23 08:18 | Emergency (ER) | payer MEDICARE, BC, SELFPAY ==
[2020-04-23 08:25] VITALS: BP 116/72; PULSE 85; RESP 18; TEMP 36.5; O2SAT 97; BMI 21.4
[2020-04-23 08:32] VITALS: BP 113/77; PULSE 75; RESP 17; O2SAT 98
--- NOTE | 2020-04-23 08:37 | CTR_ITS ---
PROCEDURE INFORMATION: Exam: CT Abdomen And Pelvis With Contrast Exam date and time: 04/23/2020 8:38 AM Age: 84 years old Clinical indication: Abdominal pain; Generalized; Prior surgery; Surgery type: Appy; Patient HX: HX of prostate cancer; Additional info: Abd pain TECHNIQUE: Imaging protocol: Computed tomography of the abdomen and pelvis with intravenous contrast. Radiation optimization: All CT scans at this facility use at least one of these dose optimization techniques: automated exposure control; mA and/or kV adjustment per patient size (includes targeted exams where dose is matched to clinical indication); or iterative reconstruction. Contrast material: VISIPAQUE; Contrast volume: 95 ml; Contrast route: INTRAVENOUS (IV); COMPARISON: [place] [id number] 11/03/2018 8:59 AM RADIATION DOSE METRICS: Total DLP (mGy-cm): 558.36 FINDINGS: Lungs: Mild atelectasis right lung base. Parenchymal band left lung base. Liver: Normal. No mass. Gallbladder and bile ducts: Normal. No calcified stones. No ductal dilation. Pancreas: Normal. No ductal dilation. Spleen: Splenic granulomas are present. Adrenals: Normal. No mass. Kidneys and ureters: 4 cm left renal cyst. Simple. Stomach and bowel: Moderate amount stool within the large bowel. Appendix: Prior appendectomy by history. Intraperitoneal space: No free fluid within the pelvis or within the dependent portions of the peritoneum. Vasculature: Calcification of the aorta. Lymph nodes: Unremarkable. No enlarged lymph nodes. Bladder: Unremarkable as visualized. Reproductive: Unremarkable as visualized. Bones/joints: Degenerative changes are present within the spine. Pars defect L5. Bony sclerosis right sacrum at the level of the sacral ala. Stable. Pars defect L5 with a grade 1 spondylolisthesis. Bony sclerosis within the adjacent 1st sacral segment previously noted. Soft tissues: Numerous venous varicosities about the mons pubis. 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 Other findings: No acute intra-abdominal process. No inflammatory process. No obstruction. CT/CT abdomen pelvis w con* [id number] IMPRESSION: 1. No acute intra-abdominal process. No inflammatory process. No obstruction. 2. No free fluid within the pelvis or within the dependent portions of the peritoneum. 3. Moderate amount stool within the large bowel. 4. Numerous venous varicosities about the mons pubis. 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 5. 4 cm left renal cyst. Simple. 6. Prior appendectomy by history. 7. Pars defect L5 with a grade 1 spondylolisthesis. Bony sclerosis within the adjacent 1st sacral segment previously noted. Radiation Dose CTDIVOL = (mGy): DLP = 558.36 (mGy-cm)
--- NOTE | 2020-04-23 08:39 | W.ED.NAVMDI ---
HPI - Nausea/Vomiting/Diarrhea General: Chief complaint: Nausea/Vomiting/Diarrhea Stated complaint: NOT EATING/NEW MEDS Time Seen by Provider: 04/23/20 08:30 History of Present Illness: HPI Narrative: 84-year-old male comes for nausea and diarrhea been going home for last 5 weeks. He was seen yesterday at primary care doctors and thought to have this diverticulitis/colitis started on Flagyl Cipro and Bentyl. He has a history of adenoCA of the prostate. MD elicited complaint: nausea and diarrhea Pertinent past history: other (Metastatic adenoCA of the prostate) Onset (ago): week(s) Description of vomiting: watery Description of diarrhea: watery and semi-solid Associated nausea: Yes Location of pain: None Severity: moderate Exacerbating factors: eating Associated symtoms: Reports fatigue, anorexia, malaise, nausea, palpitations and weakness; Denies altered mental status, bloating, chest pain, cough, diaphoresis, dizziness, dysuria, fevers/chills, headache(s), short of breath or syncope Review of Systems Const: Reports: fatigue and malaise; Denies: diaphoresis ENMT: Denies: throat pain, ear or mastoid pain, nasal discharge or nasal congestion Card: Reports: palpitations; Denies: chest pain or syncope Resp: Denies: dyspnea, productive cough or non-productive cough GI: Reports: nausea; Denies: bloating : Denies: dysuria Skin/Breast: Denies: rash or pruritus Neuro: Denies: headache(s) or dizziness PFSH ED PFSH: Medical History Adenocarcinoma of prostate Mediastinal adenopathy (Unknown) Surgical History H/O neck surgery History of appendectomy Family History Other Cancer Stroke Social History Smoking and tobacco status: former smoker Quit status (tobacco): has quit using tobacco Year quit tobacco: 1970 - 1PPD x 5 Years Second hand smoke exposure: No Alcohol intake: former Lives independently: Yes Household members: spouse Marital status: Current occupational status: retired History of recent travel: No Current gender identity: Male Physical Exam Const: COMMON NORMALS: no acute distress EXAM LIMITATIONS: no altered mental status GENERAL APPEARANCE: cooperative and comfortable ORIENTATION/CONSCIOUSNESS: Yes awake, Yes oriented to person, Yes oriented to place and Yes oriented to time HENMT: COMMON NORMALS: normocephalic, atraumatic and hearing grossly normal bilaterally HEAD & SCALP: normocephalic and atraumatic Eye: COMMON NORMALS: EOMs intact bilaterally, conjunctivae normal and no scleral icterus CONJUNCTIVA: Yes conjunctivae normal Neck/C-Spine: COMMON NORMALS: full ROM, no lymphadenopathy, supple and no JVD Lymph: LYMPHATIC: no lymphadenopathy noted and no lymphedema noted Resp: COMMON NORMALS: normal respiratory effort, No retractions, No use of accessory muscles and clear to auscultation bilaterally AUSCULTATION: clear to auscultation bilaterally Cardio: COMMON NORMALS: no JVD, regular rate, regular rhythm and No murmurs present (Cardio) RATE: regular rate RHYTHM: regular rhythm GI: COMMON NORMALS: Soft to palpation and No hepatosplenomegaly present AUSCULTATION: Yes normoactive bowel sounds PALPATION: Yes Soft to palpation, No Tenderness to palpation present (GI), No Guarding due to palpation present (GI) and Yes No hepatosplenomegaly present Extremity: COMMON NORMALS: normal to inspection, capillary refill normal, no clubbing, cyanosis or edema, no calf tenderness and no pedal edema Neuro: SENSORIUM/ORIENTATION: Yes oriented to person, Yes oriented to place and Yes oriented to time Skin: COMMON NORMALS: no rashes or lesions noted GENERAL SKIN EXAM: no rashes or lesions noted Course Vital Signs: Vital signs: Vital Signs Temperature 97.7 F 04/23/20 08:25 Pulse Rate 65 04/23/20 10:55 Respiratory Rate 18 04/23/20 10:55 Blood Pressure 127/73 04/23/20 10:55 Pulse Oximetry 97 04/23/20 10:55 MDM - Nausea/Vomiting/Diarrhea MDM Narrative: Medical decision making narrative: We will going to get a C. difficile on him CT of the abdomen did not really show much. I think he can stop the Cipro continue the Flagyl in the event that his C. difficileMuch better after the fluids will he is going to return with a stool sample later. Encouraged clear liquid diet for the next 24 hours and advance as needed. Lab Data: Attestation: I reviewed the patient's lab results. Labs: Lab Results 04/23/20 04/23/20 04/23/20 Range/Units 08:48 08:48 08:59 WBC 5.2 (4.0-10.0) 10^3/ uL RBC 4.30 (4.1-5.3) 10^6/u L Hgb 13.3 (11.7-16.6) g/dL Hct 41.4 L (42.0-52.0) % MCV 96.3 H (80-94) fL MCH 30.9 (28.0-34.0) pg MCHC 32.1 (30.0-36.0) g/dL RDW 14.1 (12.1-15.1) % Plt Count 242 (130-400) 10^3/c mm MPV 10.3 (7.4-10.4) fL Neut % (Auto) 56.0 % Lymph % (Auto) 28.7 % Buchanan % (Auto) 12.6 % Eos % (Auto) 1.3 % Baso % (Auto) 1.0 % Neut # (Auto) 2.93 (1.8-7.7) 10^3/u L Lymph # (Auto) 1.5 (0.8-4.8) 10^3/u L Buchanan # (Auto) 0.7 (0.2-0.9) 10^3/u L Eos # (Auto) 0.1 (0.0-0.8) 10^3/u L Baso # (Auto) 0.1 (0.0-0.1) 10^3/u L Nucleated RBC % (a uto) 0 % Nucleated RBCs # 0.0 /100WBC Sodium 133 L (136-145) mmol/L Potassium 3.8 (3.5-5.1) mmol/L Chloride 101 (98-107) mmol/L Carbon Dioxide 22 (22-29) mmol/L Anion Gap 13.8 (5-19) BUN 17 (8-23) mg/dL Creatinine 1.0 (0.7-1.2) mg/dL GFR Calculation Not Reportable Glucose 112 (65-115) mg/dL Calculated Osmolal ity 273 L (285-295) mOsm/k g Calcium 8.6 (8.5-10.5) mg/dL Total Bilirubin 0.6 (0.15-1.2) mg/dL AST 25 (0-40) U/L ALT 15 (0-41) U/L Alkaline Phosphata se 79 (40-130) IU/L Total Protein 6.6 (6.6-8.7) g/dL Albumin 4.0 (3.5-5.2) g/dL Globulin 2.6 (1.3-4.6) g/dL Lipase 24 (13-60) U/L Urine Color Yellow (Yellow) Urine Appearance Clear (CLEAR) Urine pH 5.0 (5-7) Ur Specific Gravit y 1.015 (1.005-1.030) Urine Protein Neg (Negative) Urine Glucose (UA) Norm (Normal) Urine Ketones 1+ H (Negative) Urine Blood Neg (Negative) Urine Nitrate Negative (Negative) Urine Bilirubin Neg (NEGATIVE) Urine Urobilinogen Norm (Negative) mg/dL Ur Leukocyte Kaylynn ase Negative (Negative) Discharge Plan Discharge Patient Disposition: Home Condition: Stable Prescriptions: New Zofran 4 mg tablet 4 mg PO Q6H PRN (Reason: nausea and vomiting) Qty: 20 RF: 0 No Action diphenhydramine-acetaminophen [Tylenol PM Extra Strength] 25-500 mg tablet 1 tab PO BEDTIME RF: 0 calcium carbonate [Tums] 200 mg calcium (500 mg) tablet,chewable 200 mg PO Q4H PRN (Reason: heartburn) RF: 0 multivitamin Tablet 1 tab PO DAILY RF: 0 Flagyl 500 mg Tablet 500 mg PO BID RF: 0 Cipro 500 mg Tablet 500 mg PO BID RF: 0 Discharge Orders: Discharge Order (Routine); Ordered 04/23/20 Ordered By: Tariq Waldrop Referrals: Louisa Aponte, [facility] [Primary Care Provider] - Discharge Diet: Clear Liquid Discharge Activity: Resume usual activity Activity Restrictions/Additional Instructions: Clear liquid 24 hours advance diet as tolerated use Zofran as needed to relieve nausea. Discharge Date/Time: 04/23/20 11:06 Coding Level of Care Code ED Keno Writer/Runner for [facility] Fwd Exam Comprehensive
[2020-04-23 08:55] LABS: Basophils # 0.1 10^3/uL (0.0-0.1); Eosinophils # 0.1 10^3/uL (0.0-0.8); Eosinophils % 1.3 %; Hematocrit 41.4 % (42.0-52.0); Hemoglobin 13.3 g/dL (11.7-16.6); Lymphocytes # 1.5 10^3/uL (0.8-4.8); Lymphocytes % 28.7 %; Mean Corpuscular HGB Conc 32.1 g/dL (30.0-36.0); Mean Corpuscular Hemoglobin 30.9 pg (28.0-34.0); Mean Corpuscular Volume 96.3 fL (80-94); Mean Platelet Volume 10.3 fL (7.4-10.4); Monocytes # 0.7 10^3/uL (0.2-0.9); Monocytes % 12.6 %; Neutrophils # 2.93 10^3/uL (1.8-7.7); Nucleated Red Blood Cells % 0 %; Platelet Count 242 10^3/cmm (130-400); Red Cell Distribution Width 14.1 % (12.1-15.1); White Blood Count 5.2 10^3/uL (4.0-10.0)
[2020-04-23] MEDS: ondansetron 2 mg/ML SDV 2 mL 4 MG IVP (09:02)
[2020-04-23] MEDS: sodium chloride 0.9% 1,000 ML 999 ML IV (09:03)
[2020-04-23] MEDS: iodixanol 320 mg/mL 100mL Btl IV (09:09)
[2020-04-23 09:10] LABS: Alanine Aminotransferase 15 U/L (0-41); Alkaline Phosphatase 79 IU/L (40-130); Anion Gap 13.8 (5-19); Aspartate Amino Transferase 25 U/L (0-40); Blood Urea Nitrogen 17 mg/dL (8-23); Calcium 8.6 mg/dL (8.5-10.5); Carbon Dioxide 22 mmol/L (22-29); Chloride 101 mmol/L (98-107); Globulin 2.6 g/dL (1.3-4.6); Glucose 112 mg/dL (65-115); Lipase 24 U/L (13-60); Osmolality Calculated 273 mOsm/kg (285-295); Potassium 3.8 mmol/L (3.5-5.1); Sodium 133 mmol/L (136-145); Total Bilirubin 0.6 mg/dL (0.15-1.2); Total Protein 6.6 g/dL (6.6-8.7)
[2020-04-23 09:20] LABS: Add Urine Microscopic? NO
[2020-04-23 09:44] LABS: Bilirubin Urine Neg (NEGATIVE); Blood Urine Neg (Negative); Glucose Urine UA Norm (Normal); Ketones Urine 1+ (Negative); Leukocyte Esterase Urine Negative (Negative); Nitrate Urine Negative (Negative); Protein Urine Neg (Negative); Specific Gravity, Urine 1.015 (1.005-1.030); Urine Appearance Clear (CLEAR); Urine Color Yellow (Yellow); Urobilinogen Urine Norm (Negative)
[2020-04-23 10:55] VITALS: BP 127/73; PULSE 65; RESP 18; O2SAT 97
--- NOTE | 2020-04-24 11:58 | PC.NURSE ---
Patient called at this time to inform the patient that he was positive for C-diff. Patient did not answer phone at this time.
== END 2020-04-23 11:06 | disposition home or self-care (01) ==
PROVIDERS: Emergency Provider Family Medicine; PCP Nurse Practitioner Family
DX: R11.2 Nausea with vomiting, unspecified (principal); R19.7 Diarrhea, unspecified; Z85.46 Personal history of malignant neoplasm of prostate; Z87.891 Personal history of nicotine dependence
CPT/HCPCS: 12345; 74177; 80053; 81003; 83690; 85025; 87493; 96361; 96374; 96375; 99282; 99284; J2405; J7030; Q9967

== ENCOUNTER 2020-04-29 12:17 | Outpatient (CLI) | payer MEDICARE, BC, SELFPAY ==
[2020-04-29 13:23] LABS: Basophils # 0.1 10^3/uL (0.0-0.1); Eosinophils # 0.2 10^3/uL (0.0-0.8); Eosinophils % 3.6 %; Hematocrit 38.1 % (42.0-52.0); Lymphocytes # 1.6 10^3/uL (0.8-4.8); Lymphocytes % 31.6 %; Mean Corpuscular HGB Conc 31.5 g/dL (30.0-36.0); Mean Corpuscular Hemoglobin 31.1 pg (28.0-34.0); Mean Corpuscular Volume 98.7 fL (80-94); Mean Platelet Volume 10.9 fL (7.4-10.4); Monocytes # 0.7 10^3/uL (0.2-0.9); Monocytes % 14.6 %; Neutrophils # 2.44 10^3/uL (1.8-7.7); Neutrophils % 48.8 %; Nucleated Red Blood Cells % 0 %; Platelet Count 200 10^3/cmm (130-400); Red Blood Count 3.86 10^6/uL (4.1-5.3); Red Cell Distribution Width 14.3 % (12.1-15.1)
[2020-04-29 13:56] LABS: Testosterone Total < 2.5 ng/dL (193-740)
[2020-04-29 14:00] LABS: Alanine Aminotransferase 15 U/L (0-41); Albumin Level 3.3 g/dL (3.5-5.2); Alkaline Phosphatase 63 IU/L (40-130); Anion Gap 12.8 (5-19); Aspartate Amino Transferase 29 U/L (0-40); Blood Urea Nitrogen 15 mg/dL (8-23); Calcium 8.7 mg/dL (8.5-10.5); Carbon Dioxide 24 mmol/L (22-29); Chloride 106 mmol/L (98-107); Globulin 2.1 g/dL (1.3-4.6); Glucose 100 mg/dL (65-115); Osmolality Calculated 284 mOsm/kg (285-295); Potassium 3.8 mmol/L (3.5-5.1); Sodium 139 mmol/L (136-145); Total Bilirubin 0.4 mg/dL (0.15-1.2); Total Protein 5.4 g/dL (6.6-8.7)
[2020-04-29] MEDS: leuprolide 22.5 mg Kit IM (16:15)
--- NOTE | 2020-04-29 17:17 | ONC FU_ITS ---
Dr. Davies follow up note Patient: Oli Aragon Unit #: [id number]: 1935 Dicatated By: Sae Davies M.D.Date of Visit:Apr 29, 2020 Onc Med Follow-up/Prog Note History of Present Illness: Mr. Aragon is an 84-year-old gentleman with history of prostate cancer diagnosed with LUZMARIA in June 2009, with his PSA was 16.8 In July 2009, he underwent biopsy of prosrate gland. The final report came back [place] score 9 (4+5) and Stephanie's 8 (4+4) CT scan of pelvis in showed right obturator lymph nodes. He was started on chemotherapy/biotherapy/hormonal therapy Lupron. In February 2010, followup study showed partial remission and no evidence of disease on scans. from April 2010 to May 2010, he received radiation therapy to a total of 7800 cGy to prostate and pelvic lymph nodes 4500 cGy. From January 2013 to January 2014, he was treated with Casodex with a PSA response. In January 2016 he was noted to have disease progression lymph node size was increasing on scan and PSA gone up to 12.8 On 08/04/2016 plan was to started Zytiga/prednisone , PSA 13.1. On 08/30/2016 PSA was 25.3. His last dose of Lupron was in January 2017. Initially it was given every 3 months and was changed to every 6 months with followup at [facility]. Zytiga was under consideration but because of cost it was not started as per oncology note from [facility] on 01/17/2017. CT scan of abdomen pelvis done at [facility] on 01/17/2017 showed increasing retroperitoneal and right pelvic lymphadenopathy. A bone scan done on 01/17/2017 showed new foci of uptake involving the sacrum are suspicious for skeletal metastases and new focal uptake at the anterior lateral aspect of the right fourth rib. Which is nonspecific for metastatic versus intraoral trauma. Incidental small right upper lobe pulmonary nodule is nonspecific follow-up suggested. In October 2018 Zytiga was obtained for Mr. Cortes. Mr Aragon was tolerating ADT wit lupron and Zytiga/prednisone well. Follow-up CT PET scan done on 11/10/2019 showed FDG negative, densely sclerotic osseous metastatic disease, consistent with sterilize malignancy. FDG positive lymph nodes in the right common iliac and mediastinal territories consistent with recurrent active malignancy. MRI scan of thoracic spine done on 11/07/2019 showed blastic well circumcised metastatic lesion involving T1 and T5 vertebral bodies likely previous treated, no significant edema or enhancement. No other visualized metastatic lesion. Mild chronic compression superior endplate T4 with incidental hemangioma Mr Aragon was referred to pulmonology for evaluation of mediastinal lymphadenopathy. He underwent bronchoscopy on 12/07/2019 right middle lobe. Endobronchial biopsy showed benign respiratory mucosa and cartilage. No malignancy identified. His PSA has continued to elevate and had recommended changing him to enzalutamide 160 mg p.o. daily and discontinue the Zytiga/prednisone. He will continue with the Xgeva and Lupron. started Xtandi On February 09, 2020 While waiting for repeat bronchoscopy, follow-up CT scan of chest was done on March 05, 2020 which showed stable previously described FDG avid normal and slightly prominent lymph nodes right hilum, left AP window and subcarinal hilar lymph nodes are stable. Subcarinal lymph node is slightly enlarged measuring 11 mm unchanged from previous scan done on November 10, 2019. No evidence of progressive lymphadenopathy. Mild chronic emphysematous changes seen. No acute pulmonary infiltrates. Noncalcified fibrotic appearing nodule right upper lobe measuring 4 mm. Sclerotic FDG negative lesions consistent with treated osseous metastatic disease more prominent at T1, T5 and right fifth rib. , Due to persistent severe diarrhea, Xtandi was put on hold on April 14, 2020, came for follow-up, denies any specific complaint except generalized weakness and fatigue, patient said he is under stress because his is going through some mental disorder, now in the hospital and possible nursing placement is under consideration and he is staying with his children. But denies any new symptoms no abdominal pain no fever chills, no dysuria no hematuria no new bony pains, no hemoptysis or hematemesis no dysphagia. Diarrhea has improved since Xtandi was put on hold about 2 weeks ago. Medications: Lomotil Tablet Oral PRN, metroNIDAZOLE 1 Tablet (of 500 mg) Oral b.i.d. for 10 days, Mirtazapine 1 Tablet (of 15 mg) Oral at bedtime PRN, Ondansetron HCl 1 Tablet (of 4 mg) Oral q 6 hours PRN, Tums 1 (500 mg) Tablet, chewable Oral PRN Allergies: No Known Allergies. Review of Systems: Review of Systems is not available for this patient. Vital Signs: Performed on Apr 29, 2020 15:09 Height - 76.00 in Weight - 178.4 lbs (LOW) BSA - 2.11 sq.m BMI - 21.72 Temperature - 98.5 F Pulse - 67 /min Respiration - 18 /min BP - 113/66 mm(hg) O2 Sat - 98 % Pain - 0 Performance Status: 1 - No physically strenuous activity, but ambulatory and able to carry out light or sedentary work (e.g. office work, light house work). (ECOG) Physical Examination: ENMT - No mouth sores, no thrush, no jaundice, Respiratory - Lungs are clear, Cardiovascular - Regular rate and rhythm of heart, Abdomen - Soft, bowel sounds present, Extremities - No visible edema or rash. Lab/Imaging: Test performed on Mar 18, 2020 08:35 Sodium 139 mmol/L Testosterone, Total 2.5 ng/dL Potassium 3.4 mmol/L Chloride 105 mmol/L CO2 21 mmol/L Anion Gap 16.4 BUN 12 mg/dL Creatinine 0.8 mg/dL Cr Clearance (Est) 84.39 mL/min Glucose 81 mg/dL Calcium 8.7 mg/dL Protein, Total 6.1 g/dL Albumin 3.8 g/dL Globulin 2.3 g/dL Bilirubin, Total 0.4 mg/dL ALT (SGPT) 8 U/L AST (SGOT) 16 U/L Alkaline Phosphatase 55 IU/L WBC 4.1 10 3/uL RBC 3.88 10 6/uL HGB 12.5 g/dL HCT 38.5 % MCV 99.2 fL MCH 32.2 pg MCHC 32.5 g/dL RDW 12.8 % Platelet Count 217 10 3/cmm MPV 10.5 fL Neutrophils 2.1 10 3/uL Lymphocytes 1.0 10 3/uL Monocytes 0.7 10 3/uL Eosinophils 0.2 10 3/uL Basophils 0.1 10 3/uL Neutrophil % 52.5 % Lymphocyte % 25.6 % Monocyte % 16.0 % Eosinophil % 4.2 % Basophils % 1.2 % NRBC % 0 % PSA 15.870 ng/mL Impression: Adenocarcinoma of prostate,Initially diagnosed in July 2009, status post radiation. Prostate and pelvic lymph nodesin April 2010, now with recurrent with pelvic/retroperitoneal lymphadenopathy and abnormal bone scan. On Lupron at [facility] Bone scan done on 05/11/2017 showed no evidence of bony metastatic disease Rising PSA while on Lupron Started on zytiga 1000mg po qd and prednisone 5 mg twice a day on 06/08/2017 in his PSA on June 06/2017 was 134 Fatigue probably multifactorial including hormone withdrawal recent History of fall from the tree, with injury to tailbone and right ribs Bone scan done on 07/20/2017 at [facility] showed 2 new lesions, one in the region of T2 and on in the pelvis likely skeletal metastasis. Multiple ribs lesions probably due to trauma Chest x-ray done on 09/26/2017 showed normal visualized bone structures. No acute changes bone scan done on 09/28/2007 showed metastatic bone disease is stable with no progression or improvement since 07/20/2017 CT scan of abdomen pelvis done on 07/20/2017 at [facility] showed retroperitoneal lymphadenopathy is stable or slightly smaller soft tissue nodule in the Florence's pouch is unchanged New sclerotic lesion in the right anterior sacrum at S1 -S 3 may represent new focus of bone metastases Bone scan done on 07/24/2018 showed no new focus of increased activity, overall decreased activity of previously noted metastatic/posttraumatic changes since 09/28/2017. Unchanged cervicothoracic spine increase activity, probably related to prior anterior fusion changes. CT scan of pelvis done on 07/24/2018 showed no pelvic lymphadenopathy, a small soft tissue nodule measuring 10 mm inseparable from the right iliac vein, has been present since 01/17/2017 Venous Doppler study right leg shows no DVT CT scan of abdomen pelvis done on every 2018 showed incidental left renal cyst without change Prior appendicectomy Stable right-sided pericaval lymph node. Variable appearance of blastic metastatic lesion right sacral luis and right side of S1 vertebral body bone scan done on 11/03/2018 showed increased uptake in right sacrum stable T4 lesion, and resolution of left costochondral lesions Status post radiation therapy to right sacroiliac area Follow-up bone scan done on 10/29/2019 shows no evidence of disease progression, no new area of metastatic disease Stable to slightly improved metastatic lesion involving the right posterior sacrum Additional stable to improve lesion involving the right T4 vertebral body and posterior fourth rib. Follow-up CT PET scan done on 11/10/2019 showed FDG negative, densely sclerotic osseous metastatic disease, consistent with sterilize malignancy. FDG positive lymph nodes in the right common iliac and mediastinal territories consistent with recurrent active malignancy. MRI scan of thoracic spine done on 11/07/2019 showed blastic well circumcised metastatic lesion involving T1 and T5 vertebral bodies likely previous treated, no significant edema or enhancement. No other visualized metastatic lesion. Mild chronic compression superior endplate T4 with incidental hemangioma Mr Aragon was referred to pulmonology for evaluation of mediastinal lymphadenopathy. He underwent bronchoscopy on 12/07/2019 right middle lobe. Endobronchial biopsy showed benign respiratory mucosa and cartilage. No malignancy identified. His PSA has continued to elevate and had recommended changing him to enzalutamide 160 mg p.o. daily and discontinue the Zytiga/prednisone. He will continue with the Xgeva and Lupron.Xtandi was put on hold on April 14, 2020 because of diarrhea Plan: Discussed with patient regarding his labs white blood count 5 hemoglobin 12 hematocrit 38.1 platelets 200,000 CMP within normal limits, PSA 27.05 compared to 15.87 on March 18, 2020 testosterone less than 2.5 Clinically, patient is doing reasonably well now with generalized weakness and fatigue, and under tremendous stress due to being in the hospital and possible custodial placement, patient was started on Xtandi for progressive PSA but developed diarrhea, Xtandi was put on hold on April 14, 2020 with that his diarrhea has improved. Patient had CT scan of abdomen pelvis done on April 23, 2020 showed no evidence of pelvic lymphadenopathy Because of generalized weakness and fatigue and now diarrhea is improving, will continue to hold Xtandi while continue with his scheduled 3 monthly dose of Lupron today and then he will return to clinic in 1 month with a PSA and if PSA continues to go up, will discuss other treatment options including chemotherapy with Taxotere. Signed By: Sae Davies M.D. <<Signature on File>>
== END 2020-04-29 12:18 | disposition home or self-care (01) ==
LOC: ONCMED 12:20
PROVIDERS: PCP Nurse Practitioner Family; Visit Provider Internal Medicine Hematology & Oncology
DX: C61 Malignant neoplasm of prostate (principal); C79.51 Secondary malignant neoplasm of bone; R97.21 Rising PSA following treatment for malignant neoplasm of prostate; R53.1 Weakness; R53.83 Other fatigue; K52.1 Toxic gastroenteritis and colitis; T38.6X5D Adverse effect of antigonadotrophins, antiestrogens, antiandrogens, not elsewhere classified, subsequent encounter; M48.54XD Collapsed vertebra, not elsewhere classified, thoracic region, subsequent encounter for fracture with routine healing; Z79.899 Other long term (current) drug therapy; Z79.818 Long term (current) use of other agents affecting estrogen receptors and estrogen levels; Z79.52 Long term (current) use of systemic steroids
CPT/HCPCS: 80053; 84153; 84403; 85025; 96372; 96402; 99214; J9217

== ENCOUNTER 2020-05-09 08:03 | Outpatient (CLI) | payer MEDICARE, BC, SELFPAY | END 2020-05-09 08:04 | disposition home or self-care (01) | LOC: LAB 08:05 | PROVIDERS: PCP Nurse Practitioner Family; Visit Provider Internal Medicine | DX: A04.72 Enterocolitis due to Clostridium difficile, not specified as recurrent (principal) | CPT/HCPCS: 87493 ==

== ENCOUNTER 2020-06-12 12:09 | Outpatient (CLI) | payer MEDICARE, BC, SELFPAY ==
--- NOTE | 2020-06-12 14:38 | ONC FU_ITS ---
Dr. Davies follow up note Patient: Oli Aragon Unit #: [id number]: 1935 Dicatated By: Sae Davies M.D.Date of Visit:Jun 12, 2020 Onc Med Follow-up/Prog Note History of Present Illness: Mr. Aragon is an 84-year-old gentleman with history of prostate cancer diagnosed with LUZMARIA in June 2009, with his PSA was 16.8 In July 2009, he underwent biopsy of prosrate gland. The final report came back [place] score 9 (4+5) and Stephanie's 8 (4+4) CT scan of pelvis in showed right obturator lymph nodes. He was started on chemotherapy/biotherapy/hormonal therapy Lupron. In February 2010, followup study showed partial remission and no evidence of disease on scans. from April 2010 to May 2010, he received radiation therapy to a total of 7800 cGy to prostate and pelvic lymph nodes 4500 cGy. From January 2013 to January 2014, he was treated with Casodex with a PSA response. In January 2016 he was noted to have disease progression lymph node size was increasing on scan and PSA gone up to 12.8 On 08/04/2016 plan was to started Zytiga/prednisone , PSA 13.1. On 08/30/2016 PSA was 25.3. His last dose of Lupron was in January 2017. Initially it was given every 3 months and was changed to every 6 months with followup at [facility]. Zytiga was under consideration but because of cost it was not started as per oncology note from [facility] on 01/17/2017. CT scan of abdomen pelvis done at [facility] on 01/17/2017 showed increasing retroperitoneal and right pelvic lymphadenopathy. A bone scan done on 01/17/2017 showed new foci of uptake involving the sacrum are suspicious for skeletal metastases and new focal uptake at the anterior lateral aspect of the right fourth rib. Which is nonspecific for metastatic versus intraoral trauma. Incidental small right upper lobe pulmonary nodule is nonspecific follow-up suggested. In October 2018 Zytiga was obtained for Mr. Cortes. Mr Aragon was tolerating ADT wit lupron and Zytiga/prednisone well. Follow-up CT PET scan done on 11/10/2019 showed FDG negative, densely sclerotic osseous metastatic disease, consistent with sterilize malignancy. FDG positive lymph nodes in the right common iliac and mediastinal territories consistent with recurrent active malignancy. MRI scan of thoracic spine done on 11/07/2019 showed blastic well circumcised metastatic lesion involving T1 and T5 vertebral bodies likely previous treated, no significant edema or enhancement. No other visualized metastatic lesion. Mild chronic compression superior endplate T4 with incidental hemangioma Mr Aragon was referred to pulmonology for evaluation of mediastinal lymphadenopathy. He underwent bronchoscopy on 12/07/2019 right middle lobe. Endobronchial biopsy showed benign respiratory mucosa and cartilage. No malignancy identified. His PSA has continued to elevate and had recommended changing him to enzalutamide 160 mg p.o. daily and discontinue the Zytiga/prednisone. He will continue with the Xgeva and Lupron. started Xtandi On February 09, 2020 While waiting for repeat bronchoscopy, follow-up CT scan of chest was done on March 05, 2020 which showed stable previously described FDG avid normal and slightly prominent lymph nodes right hilum, left AP window and subcarinal hilar lymph nodes are stable. Subcarinal lymph node is slightly enlarged measuring 11 mm unchanged from previous scan done on November 10, 2019. No evidence of progressive lymphadenopathy. Mild chronic emphysematous changes seen. No acute pulmonary infiltrates. Noncalcified fibrotic appearing nodule right upper lobe measuring 4 mm. Sclerotic FDG negative lesions consistent with treated osseous metastatic disease more prominent at T1, T5 and right fifth rib. , Due to persistent severe diarrhea, Xtandi was put on hold on April 14, 2020, Came for follow-up, denies any specific complaints, no fever chills, no nausea or vomiting, no diarrhea constipation, no hemoptysis hematemesis, no hematuria or new bony pains. Occasionally hot flashes otherwise tolerating Lupron well Feeling much better since enzalutamide is on hold Medications: Lomotil Tablet Oral PRN, Mirtazapine 1 Tablet (of 15 mg) Oral at bedtime PRN, Ondansetron HCl 1 Tablet (of 4 mg) Oral q 6 hours PRN, Tums 1 (500 mg) Tablet, chewable Oral PRN Allergies: No Known Allergies. Review of Systems: Constitutional - No fevers, chills, night sweats, excessive fatigue or weight loss. Appetite is fair. Energy level is appropriate, ENMT - Positive for sinus congestion/drainage. No mouth sores. , Hematologic/Lymphatic - Patient states he bruises easily, Respiratory - No dyspnea on exertion, chest pain, cough or hemoptysis, Cardiovascular - No anginal chest pain, palpitations or orthopnea, Gastrointestinal - No nausea, vomiting, diarrhea, GI bleeding, or constipation, Genitourinary (M) - No hematuria, dysuria, increased frequency, urgency, hesitancy or incontinence, Musculoskeletal - Pt denies pain, Neurologic - No headache or dizziness. He does have a constant numbness/tingling feeling in his legs and feet, Psychiatric - Positive for anxiety and depression. No insomnia. Vital Signs: Performed on Jun 12, 2020 14:00 Height - 76.00 in Weight - 184.2 lbs (HIGH) BSA - 2.14 sq.m BMI - 22.42 Temperature - 97.3 F (LOW) Pulse - 61 /min Respiration - 18 /min BP - 149/81 mm(hg) (HIGH) O2 Sat - 98 % Pain - 0 Performance Status: 0 - Fully active, able to carry on all predisease activities without restrictions. (ECOG) Physical Examination: ENMT - No mouth sores, no thrush, no jaundice, Respiratory - Lungs are clear to auscultation, Cardiovascular - Regular rate and rhythm of heart, Abdomen - Soft, bowel sounds present, Extremities - No visible edema. Lab/Imaging: Test performed on Mar 18, 2020 08:35 Sodium 139 mmol/L Testosterone, Total 2.5 ng/dL Potassium 3.4 mmol/L Chloride 105 mmol/L CO2 21 mmol/L Anion Gap 16.4 BUN 12 mg/dL Creatinine 0.8 mg/dL Cr Clearance (Est) 84.39 mL/min Glucose 81 mg/dL Calcium 8.7 mg/dL Protein, Total 6.1 g/dL Albumin 3.8 g/dL Globulin 2.3 g/dL Bilirubin, Total 0.4 mg/dL ALT (SGPT) 8 U/L AST (SGOT) 16 U/L Alkaline Phosphatase 55 IU/L WBC 4.1 10 3/uL RBC 3.88 10 6/uL HGB 12.5 g/dL HCT 38.5 % MCV 99.2 fL MCH 32.2 pg MCHC 32.5 g/dL RDW 12.8 % Platelet Count 217 10 3/cmm MPV 10.5 fL Neutrophils 2.1 10 3/uL Lymphocytes 1.0 10 3/uL Monocytes 0.7 10 3/uL Eosinophils 0.2 10 3/uL Basophils 0.1 10 3/uL Neutrophil % 52.5 % Lymphocyte % 25.6 % Monocyte % 16.0 % Eosinophil % 4.2 % Basophils % 1.2 % NRBC % 0 % PSA 15.870 ng/mL Impression: Adenocarcinoma of prostate,Initially diagnosed in July 2009, status post radiation. Prostate and pelvic lymph nodesin April 2010, now with recurrent with pelvic/retroperitoneal lymphadenopathy and abnormal bone scan. On Lupron at [facility] Bone scan done on 05/11/2017 showed no evidence of bony metastatic disease Rising PSA while on Lupron Started on zytiga 1000mg po qd and prednisone 5 mg twice a day on 06/08/2017 in his PSA on June 06/2017 was 134 Fatigue probably multifactorial including hormone withdrawal recent History of fall from the tree, with injury to tailbone and right ribs Bone scan done on 07/20/2017 at [facility] showed 2 new lesions, one in the region of T2 and on in the pelvis likely skeletal metastasis. Multiple ribs lesions probably due to trauma Chest x-ray done on 09/26/2017 showed normal visualized bone structures. No acute changes bone scan done on 09/28/2007 showed metastatic bone disease is stable with no progression or improvement since 07/20/2017 CT scan of abdomen pelvis done on 07/20/2017 at [facility] showed retroperitoneal lymphadenopathy is stable or slightly smaller soft tissue nodule in the Florence's pouch is unchanged New sclerotic lesion in the right anterior sacrum at S1 -S 3 may represent new focus of bone metastases Bone scan done on 07/24/2018 showed no new focus of increased activity, overall decreased activity of previously noted metastatic/posttraumatic changes since 09/28/2017. Unchanged cervicothoracic spine increase activity, probably related to prior anterior fusion changes. CT scan of pelvis done on 07/24/2018 showed no pelvic lymphadenopathy, a small soft tissue nodule measuring 10 mm inseparable from the right iliac vein, has been present since 01/17/2017 Venous Doppler study right leg shows no DVT CT scan of abdomen pelvis done on 2018 showed incidental left renal cyst without change Prior appendicectomy Stable right-sided pericaval lymph node. Variable appearance of blastic metastatic lesion right sacral luis and right side of S1 vertebral body bone scan done on 11/03/2018 showed increased uptake in right sacrum stable T4 lesion, and resolution of left costochondral lesions Status post radiation therapy to right sacroiliac area Follow-up bone scan done on 10/29/2019 shows no evidence of disease progression, no new area of metastatic disease Stable to slightly improved metastatic lesion involving the right posterior sacrum Additional stable to improve lesion involving the right T4 vertebral body and posterior fourth rib. Follow-up CT PET scan done on 11/10/2019 showed FDG negative, densely sclerotic osseous metastatic disease, consistent with sterilize malignancy. FDG positive lymph nodes in the right common iliac and mediastinal territories consistent with recurrent active malignancy. MRI scan of thoracic spine done on 11/07/2019 showed blastic well circumcised metastatic lesion involving T1 and T5 vertebral bodies likely previous treated, no significant edema or enhancement. No other visualized metastatic lesion. Mild chronic compression superior endplate T4 with incidental hemangioma Mr Aragon was referred to pulmonology for evaluation of mediastinal lymphadenopathy. He underwent bronchoscopy on 12/07/2019 right middle lobe. Endobronchial biopsy showed benign respiratory mucosa and cartilage. No malignancy identified. His PSA has continued to elevate and had recommended changing him to enzalutamide 160 mg p.o. daily and discontinue the Zytiga/prednisone. He will continue with the Xgeva and Lupron.Xtandi was put on hold on April 14, 2020 because of diarrhea Plan: Discussed with patient regarding his labs his PSA is 16.04 compared to 27.05 on April 29, 2020 Clinically, patient is doing reasonably well with no new signs symptom suggestive of disease progression his follow-up labs shows PSA dropped significantly although his enzalutamide is on hold since April 14, 2020 because of severe diarrhea and generalized weakness and fatigue. Patient said he is feeling much better since he is off enzalutamide and wants to hold it for another month or so has quality of life is improving now and his follow-up labs shows PSA has dropped significantly so we will continue to monitor and he will return to clinic in 6 weeks for his 3 monthly dose of Lupron/Xgeva , at that time we will check his PSA and testosterone and if it continues to go down will continue with Lupron only along with Xgeva. Signed By: Sae Davies M.D. <<Signature on File>>
== END 2020-06-12 12:10 | disposition home or self-care (01) ==
LOC: ONCMED 12:14
PROVIDERS: PCP Nurse Practitioner Family; Visit Provider Internal Medicine Hematology & Oncology
DX: C61 Malignant neoplasm of prostate (principal); C79.51 Secondary malignant neoplasm of bone; T45.1X5D Adverse effect of antineoplastic and immunosuppressive drugs, subsequent encounter; Z79.818 Long term (current) use of other agents affecting estrogen receptors and estrogen levels; Z79.899 Other long term (current) drug therapy
CPT/HCPCS: 84153; 99214

== ENCOUNTER 2020-07-30 10:01 | Outpatient (CLI) | payer MEDICARE, BC, SELFPAY ==
--- NOTE | 2020-07-30 10:30 | CT_ITS ---
WS: [id number] CT scan of the chest with IV contrast, additional two-dimensional coronal and sagittal reconstruction was performed. 07/30/2020 Clinical Data: eval for abscess Comparison: CT chest, 03/05/2020. DLP: 850.[address] scans at [facility] use at least one of these dose optimization techniques: automat ed exposure control; mA and/or kV adjustment per patient size (includes targeted exams where dose is matched to clinical indication); or iterative reconstruction. Findings: There is a small nodule measuring 0.3 cm in the right upper lobe seen best on image 26 of 76 unchange d. No new nodules are seen. No masses or effusions are seen. The heart size is normal with no pericardial effusion. There is kerri nary artery calcification. No pneumonia or pneumothorax is seen. The pulmonary arterial system and th oracic aorta demonstrate no abnormalities or dilatations. There is no change in hilar and subcarinal adenopathy. The sclerotic lesions at T1 and T5 vertebral bodies and proximal portion of the right fif th rib remain the same. The upper abdomen shows no change with the left 5.0 cm renal cyst remaining the same. CT/CT chest w con* [id number] Impression: 1. Bony metastatic lesions remain unchanged. 2. No change in mediastinal and hilar lymph nodes. 3. No change in right upper lobe nodule
[2020-07-30 10:58] LABS: Blood Urea Nitrogen 11 mg/dL (8-23)
[2020-07-30] MEDS: iohexol 300 mg/mL 100 mL Btl IV (11:04)
== END 2020-07-30 10:02 | disposition home or self-care (01) ==
LOC: RADWPI 10:08
PROVIDERS: PCP Internal Medicine; Visit Provider Internal Medicine
DX: R07.9 Chest pain, unspecified (principal); R59.0 Localized enlarged lymph nodes
CPT/HCPCS: 71260; 82565; 84520; Q9967

== ENCOUNTER 2020-07-31 05:44 | Outpatient (CLI) | payer MEDICARE, BC, SELFPAY ==
[2020-07-31 12:56] LABS: Testosterone Total < 2.5 ng/dL (193-740)
[2020-07-31] MEDS: denosumab 120 mg SDV SUBCUT (14:24)
[2020-07-31] MEDS: leuprolide 22.5 mg Kit IM (14:24)
--- NOTE | 2020-07-31 16:26 | ONC FU_ITS ---
Dr. Davies follow up note Patient: Oli Aragon Unit #: [id number]: 1935 Dicatated By: Sae Davies M.D.Date of Visit:Jul 31, 2020 Onc Med Follow-up/Prog Note History of Present Illness: Mr. Aragon is an 84-year-old gentleman with history of prostate cancer diagnosed with LUZMARIA in June 2009, with his PSA was 16.8 In July 2009, he underwent biopsy of prosrate gland. The final report came back [place] score 9 (4+5) and Stephanie's 8 (4+4) CT scan of pelvis in showed right obturator lymph nodes. He was started on chemotherapy/biotherapy/hormonal therapy Lupron. In February 2010, followup study showed partial remission and no evidence of disease on scans. from April 2010 to May 2010, he received radiation therapy to a total of 7800 cGy to prostate and pelvic lymph nodes 4500 cGy. From January 2013 to January 2014, he was treated with Casodex with a PSA response. In January 2016 he was noted to have disease progression lymph node size was increasing on scan and PSA gone up to 12.8 On 08/04/2016 plan was to started Zytiga/prednisone , PSA 13.1. On 08/30/2016 PSA was 25.3. His last dose of Lupron was in January 2017. Initially it was given every 3 months and was changed to every 6 months with followup at [facility]. Zytiga was under consideration but because of cost it was not started as per oncology note from [facility] on 01/17/2017. CT scan of abdomen pelvis done at [facility] on 01/17/2017 showed increasing retroperitoneal and right pelvic lymphadenopathy. A bone scan done on 01/17/2017 showed new foci of uptake involving the sacrum are suspicious for skeletal metastases and new focal uptake at the anterior lateral aspect of the right fourth rib. Which is nonspecific for metastatic versus intraoral trauma. Incidental small right upper lobe pulmonary nodule is nonspecific follow-up suggested. In October 2018 Zytiga was obtained for Mr. Cortes. Mr Aragon was tolerating ADT wit lupron and Zytiga/prednisone well. Follow-up CT PET scan done on 11/10/2019 showed FDG negative, densely sclerotic osseous metastatic disease, consistent with sterilize malignancy. FDG positive lymph nodes in the right common iliac and mediastinal territories consistent with recurrent active malignancy. MRI scan of thoracic spine done on 11/07/2019 showed blastic well circumcised metastatic lesion involving T1 and T5 vertebral bodies likely previous treated, no significant edema or enhancement. No other visualized metastatic lesion. Mild chronic compression superior endplate T4 with incidental hemangioma Mr Aragon was referred to pulmonology for evaluation of mediastinal lymphadenopathy. He underwent bronchoscopy on 12/07/2019 right middle lobe. Endobronchial biopsy showed benign respiratory mucosa and cartilage. No malignancy identified. His PSA has continued to elevate and had recommended changing him to enzalutamide 160 mg p.o. daily and discontinue the Zytiga/prednisone. He will continue with the Xgeva and Lupron. started Xtandi On February 09, 2020 While waiting for repeat bronchoscopy, follow-up CT scan of chest was done on March 05, 2020 which showed stable previously described FDG avid normal and slightly prominent lymph nodes right hilum, left AP window and subcarinal hilar lymph nodes are stable. Subcarinal lymph node is slightly enlarged measuring 11 mm unchanged from previous scan done on November 10, 2019. No evidence of progressive lymphadenopathy. Mild chronic emphysematous changes seen. No acute pulmonary infiltrates. Noncalcified fibrotic appearing nodule right upper lobe measuring 4 mm. Sclerotic FDG negative lesions consistent with treated osseous metastatic disease more prominent at T1, T5 and right fifth rib. , Due to persistent severe diarrhea, Xtandi was put on hold on April 14, 2020, Came for follow-up, denies any specific complaints, no fever chills, no nausea or vomiting, no abdominal pain, mild diarrhea but under control, now being managed by Dr. Ochoa. No new bony pains. No hemoptysis or hematemesis, no dysphagia. No dysuria. Medications: Lomotil Tablet Oral PRN, Mirtazapine 1 Tablet (of 15 mg) Oral at bedtime PRN, Ondansetron HCl 1 Tablet (of 4 mg) Oral q 6 hours PRN, Tums 1 (500 mg) Tablet, chewable Oral PRN Allergies: No Known Allergies. Review of Systems: Constitutional - No fevers, chills, night sweats, excessive fatigue or weight loss. Appetite is fair. Energy level is appropriate, ENMT - Positive for sinus congestion/drainage. No mouth sores. , Hematologic/Lymphatic - Patient states he bruises easily, Respiratory - No dyspnea on exertion, chest pain, cough or hemoptysis, Cardiovascular - No anginal chest pain, palpitations or orthopnea, Gastrointestinal - No nausea, vomiting, diarrhea, GI bleeding, or constipation, Genitourinary (M) - No hematuria, dysuria, increased frequency, urgency, hesitancy or incontinence, Musculoskeletal - Pt denies pain, Neurologic - No headache or dizziness. He does have a constant numbness/tingling feeling in his legs and feet, Psychiatric - Positive for anxiety and depression. No insomnia. Vital Signs: Performed on Jul 31, 2020 13:39 Height - 76.00 in Weight - 180.0 lbs (LOW) BSA - 2.12 sq.m BMI - 21.91 Temperature - 97.9 F (LOW) Pulse - 62 /min Respiration - 18 /min BP - 135/81 mm(hg) O2 Sat - 98 % Pain - 0 Performance Status: 0 - Fully active, able to carry on all predisease activities without restrictions. (ECOG) Physical Examination: ENMT - No mouth sores, no thrush, no jaundice, Respiratory - Lungs are clear to auscultation, Cardiovascular - Regular rate and rhythm of heart s, Abdomen - Soft, bowel sounds present, Extremities - No visible edema. Lab/Imaging: Test performed on Jun 12, 2020 12:20 PSA 16.040 ng/mL Test performed on Apr 29, 2020 12:25 Sodium 139 mmol/L Testosterone, Total < 2.5 ng/dL Potassium 3.8 mmol/L Chloride 106 mmol/L CO2 24 mmol/L Anion Gap 12.8 BUN 15 mg/dL Creatinine 1.1 mg/dL Cr Clearance (Est) 60.13 mL/min Glucose 100 mg/dL Calcium 8.7 mg/dL Osmolality - Calculated 284 mOsm/kg Protein, Total 5.4 g/dL Albumin 3.3 g/dL Globulin 2.1 g/dL Bilirubin, Total 0.4 mg/dL ALT (SGPT) 15 U/L AST (SGOT) 29 U/L Alkaline Phosphatase 63 IU/L WBC 5.0 10 3/uL RBC 3.86 10 6/uL HGB 12.0 g/dL HCT 38.1 % MCV 98.7 fL MCH 31.1 pg MCHC 31.5 g/dL RDW 14.3 % Platelet Count 200 10 3/cmm MPV 10.9 fL Neutrophils 2.44 10 3/uL Lymphocytes 1.6 10 3/uL Monocytes 0.7 10 3/uL Eosinophils 0.2 10 3/uL Basophils 0.1 10 3/uL Neutrophil % 48.8 % Lymphocyte % 31.6 % Monocyte % 14.6 % Eosinophil % 3.6 % Basophils % 1.0 % NRBC % 0 % Impression: Adenocarcinoma of prostate,Initially diagnosed in July 2009, status post radiation. Prostate and pelvic lymph nodesin April 2010, now with recurrent with pelvic/retroperitoneal lymphadenopathy and abnormal bone scan. On Lupron at [facility] Bone scan done on 05/11/2017 showed no evidence of bony metastatic disease Rising PSA while on Lupron Started on zytiga 1000mg po qd and prednisone 5 mg twice a day on 06/08/2017 in his PSA on June 06/2017 was 134 Fatigue probably multifactorial including hormone withdrawal recent History of fall from the tree, with injury to tailbone and right ribs Bone scan done on 07/20/2017 at [facility] showed 2 new lesions, one in the region of T2 and on in the pelvis likely skeletal metastasis. Multiple ribs lesions probably due to trauma Chest x-ray done on 09/26/2017 showed normal visualized bone structures. No acute changes bone scan done on 09/28/2007 showed metastatic bone disease is stable with no progression or improvement since 07/20/2017 CT scan of abdomen pelvis done on 07/20/2017 at [facility] showed retroperitoneal lymphadenopathy is stable or slightly smaller soft tissue nodule in the Florence's pouch is unchanged New sclerotic lesion in the right anterior sacrum at S1 -S 3 may represent new focus of bone metastases Bone scan done on 07/24/2018 showed no new focus of increased activity, overall decreased activity of previously noted metastatic/posttraumatic changes since 09/28/2017. Unchanged cervicothoracic spine increase activity, probably related to prior anterior fusion changes. CT scan of pelvis done on 07/24/2018 showed no pelvic lymphadenopathy, a small soft tissue nodule measuring 10 mm inseparable from the right iliac vein, has been present since 01/17/2017 Venous Doppler study right leg shows no DVT CT scan of abdomen pelvis done on 2018 showed incidental left renal cyst without change Prior appendicectomy Stable right-sided pericaval lymph node. Variable appearance of blastic metastatic lesion right sacral luis and right side of S1 vertebral body bone scan done on 11/03/2018 showed increased uptake in right sacrum stable T4 lesion, and resolution of left costochondral lesions Status post radiation therapy to right sacroiliac area Follow-up bone scan done on 10/29/2019 shows no evidence of disease progression, no new area of metastatic disease Stable to slightly improved metastatic lesion involving the right posterior sacrum Additional stable to improve lesion involving the right T4 vertebral body and posterior fourth rib. Follow-up CT PET scan done on 11/10/2019 showed FDG negative, densely sclerotic osseous metastatic disease, consistent with sterilize malignancy. FDG positive lymph nodes in the right common iliac and mediastinal territories consistent with recurrent active malignancy. MRI scan of thoracic spine done on 11/07/2019 showed blastic well circumcised metastatic lesion involving T1 and T5 vertebral bodies likely previous treated, no significant edema or enhancement. No other visualized metastatic lesion. Mild chronic compression superior endplate T4 with incidental hemangioma Mr Aragon was referred to pulmonology for evaluation of mediastinal lymphadenopathy. He underwent bronchoscopy on 12/07/2019 right middle lobe. Endobronchial biopsy showed benign respiratory mucosa and cartilage. No malignancy identified. His PSA has continued to elevate and had recommended changing him to enzalutamide 160 mg p.o. daily and discontinue the Zytiga/prednisone. He will continue with the Xgeva and Lupron.Xtandi was put on hold on April 14, 2020 because of diarrhea Plan: Discussed with patient regarding his labs PSA 24.36 compared to 16.04 on June 12, 2020 and testosterone is less than 2.[address] scan of chest which was done on July 30, 2020 which showed there is a small nodule measuring 0.3 cm in the right upper lobe and is unchanged, no change in mediastinal hilar lymph nodes bony metastatic disease remained unchanged. Clinically, patient is doing well, tolerating Lupron and Xgeva every 3-month well, Xtandi was put on hold because of severe diarrhea, no resolved, at this point, as his follow-up PSA shows increasing value now 24.36 compared to 16.04, we will restart him on Xtandi but at reduced dose e.g. 80 mg p.o. daily and started 160 mg p.o. daily and then titrate up as tolerated. And to continue with 3 monthly Lupron along with Xgeva and vitamin D and calcium supplements. Patient return to clinic in 1 month with PSA and patient was advised in case there is a worsening of symptoms or intolerance to Xtandi he will call us. Signed By: Sae Davies M.D. <<Signature on File>>
== END 2020-07-31 05:45 | disposition home or self-care (01) ==
LOC: ONCMED 05:46
PROVIDERS: PCP Internal Medicine; Visit Provider Internal Medicine Hematology & Oncology
DX: C61 Malignant neoplasm of prostate (principal); C79.51 Secondary malignant neoplasm of bone; R91.1 Solitary pulmonary nodule; K52.1 Toxic gastroenteritis and colitis; T45.1X5D Adverse effect of antineoplastic and immunosuppressive drugs, subsequent encounter; D18.09 Hemangioma of other sites; Z92.3 Personal history of irradiation; Z79.818 Long term (current) use of other agents affecting estrogen receptors and estrogen levels; Z79.899 Other long term (current) drug therapy
CPT/HCPCS: 84153; 84403; 96372; 96402; 99214; J0897; J9217

== ENCOUNTER 2020-08-29 08:10 | Outpatient (CLI) | payer MEDICARE, BC, SELFPAY ==
[2020-08-29 11:27] LABS: Alanine Aminotransferase 9 U/L (0-41); Albumin Level 3.7 g/dL (3.5-5.2); Alkaline Phosphatase 64 IU/L (40-130); Anion Gap 12.9 (5-19); Aspartate Amino Transferase 16 U/L (0-40); Blood Urea Nitrogen 14 mg/dL (8-23); Carbon Dioxide 24 mmol/L (22-29); Chloride 107 mmol/L (98-107); Globulin 2.4 g/dL (1.3-4.6); Glucose 93 mg/dL (65-115); Magnesium 1.8 mg/dL (1.7-2.3); Osmolality Calculated 290 mOsm/kg (285-295); Potassium 3.9 mmol/L (3.5-5.1); Sodium 140 mmol/L (136-145); Total Bilirubin 0.4 mg/dL (0.15-1.2); Total Protein 6.1 g/dL (6.6-8.7)
--- NOTE | 2020-08-29 12:18 | ONC FU_ITS ---
Dr. Davies follow up note Patient: Oli Aragon Unit #: [id number]: 1935 Dicatated By: Sae Davies M.D.Date of Visit:Aug 29, 2020 Onc Med Follow-up/Prog Note History of Present Illness: Mr. Aragon is an 84-year-old gentleman with history of prostate cancer diagnosed with LUZMARIA in June 2009, with his PSA was 16.8 In July 2009, he underwent biopsy of prosrate gland. The final report came back [place] score 9 (4+5) and Stephanie's 8 (4+4) CT scan of pelvis in showed right obturator lymph nodes. He was started on chemotherapy/biotherapy/hormonal therapy Lupron. In February 2010, followup study showed partial remission and no evidence of disease on scans. from April 2010 to May 2010, he received radiation therapy to a total of 7800 cGy to prostate and pelvic lymph nodes 4500 cGy. From January 2013 to January 2014, he was treated with Casodex with a PSA response. In January 2016 he was noted to have disease progression lymph node size was increasing on scan and PSA gone up to 12.8 On 08/04/2016 plan was to started Zytiga/prednisone , PSA 13.1. On 08/30/2016 PSA was 25.3. His last dose of Lupron was in January 2017. Initially it was given every 3 months and was changed to every 6 months with followup at [facility]. Zytiga was under consideration but because of cost it was not started as per oncology note from [facility] on 01/17/2017. CT scan of abdomen pelvis done at [facility] on 01/17/2017 showed increasing retroperitoneal and right pelvic lymphadenopathy. A bone scan done on 01/17/2017 showed new foci of uptake involving the sacrum are suspicious for skeletal metastases and new focal uptake at the anterior lateral aspect of the right fourth rib. Which is nonspecific for metastatic versus intraoral trauma. Incidental small right upper lobe pulmonary nodule is nonspecific follow-up suggested. In October 2018 Zytiga was obtained for Mr. Cortes. Mr Aragon was tolerating ADT wit lupron and Zytiga/prednisone well. Follow-up CT PET scan done on 11/10/2019 showed FDG negative, densely sclerotic osseous metastatic disease, consistent with sterilize malignancy. FDG positive lymph nodes in the right common iliac and mediastinal territories consistent with recurrent active malignancy. MRI scan of thoracic spine done on 11/07/2019 showed blastic well circumcised metastatic lesion involving T1 and T5 vertebral bodies likely previous treated, no significant edema or enhancement. No other visualized metastatic lesion. Mild chronic compression superior endplate T4 with incidental hemangioma Mr Aragon was referred to pulmonology for evaluation of mediastinal lymphadenopathy. He underwent bronchoscopy on 12/07/2019 right middle lobe. Endobronchial biopsy showed benign respiratory mucosa and cartilage. No malignancy identified. His PSA has continued to elevate and had recommended changing him to enzalutamide 160 mg p.o. daily and discontinue the Zytiga/prednisone. He will continue with the Xgeva and Lupron. started Xtandi On February 09, 2020 While waiting for repeat bronchoscopy, follow-up CT scan of chest was done on March 05, 2020 which showed stable previously described FDG avid normal and slightly prominent lymph nodes right hilum, left AP window and subcarinal hilar lymph nodes are stable. Subcarinal lymph node is slightly enlarged measuring 11 mm unchanged from previous scan done on November 10, 2019. No evidence of progressive lymphadenopathy. Mild chronic emphysematous changes seen. No acute pulmonary infiltrates. Noncalcified fibrotic appearing nodule right upper lobe measuring 4 mm. Sclerotic FDG negative lesions consistent with treated osseous metastatic disease more prominent at T1, T5 and right fifth rib. , Due to persistent severe diarrhea, Xtandi was put on hold on April 14, 2020,Restarted on July 31, 2020 but with low-dose e.g. 80 mg p.o. daily Came for follow-up, complaining of generalized weakness and fatigue and abdominal discomfort and cramps mild diarrhea since restarted on Xtandi. But no fever chills, no melena or hematochezia, no mucus in stool, no shortness of breath, no chest pain, no headaches blurred vision double vision, no jaundice. Tolerating low-dose Xtandi reasonably well otherwise Medications: Lomotil Tablet Oral PRN, Mirtazapine 1 Tablet (of 15 mg) Oral at bedtime PRN, Ondansetron HCl 1 Tablet (of 4 mg) Oral q 6 hours PRN, Tums 1 (500 mg) Tablet, chewable Oral PRN Allergies: No Known Allergies. Review of Systems: Constitutional - No fevers, chills, night sweats, excessive fatigue or weight loss. Appetite is fair. Energy level is poor, ENMT - Positive for sinus congestion/drainage. No mouth sores. No sore throat, Hematologic/Lymphatic - Patient states he bruises easily, Respiratory - Postivie for dyspnea on exertion, chest pain, cough or hemoptysis, Cardiovascular - No anginal chest pain, palpitations or orthopnea, Gastrointestinal - No nausea, vomiting, Positive for diarrhea, No, GI bleeding, or constipation, Genitourinary (M) - No hematuria, dysuria, increased frequency, urgency, hesitancy or incontinence, Musculoskeletal - Positive for pain in shoulders, Integumentary - , Neurologic - No headache or dizziness. He does have a constant numbness/tingling feeling in his legs and feet, Psychiatric - Positive for anxiety and depression. No insomnia. Vital Signs: Performed on Aug 29, 2020 10:46 Height - 76.00 in Weight - 180.6 lbs (HIGH) BSA - 2.12 sq.m BMI - 21.98 Temperature - 98.3 F (LOW) Pulse - 66 /min Respiration - 18 /min BP - 155/83 mm(hg) (HIGH) O2 Sat - 98 % Pain - 4 Performance Status: 1 - No physically strenuous activity, but ambulatory and able to carry out light or sedentary work (e.g. office work, light house work). (ECOG) Physical Examination: ENMT - No mouth sores, no thrush, no jaundice, Respiratory - Lungs are clear to auscultation, Cardiovascular - Regular rate and rhythm of heart, Abdomen - Soft, bowel sounds present, Extremities - No visible edema. Lab/Imaging: Test performed on Aug 29, 2020 08:25 Magnesium 1.8 mg/dL Sodium 140 mmol/L Potassium 3.9 mmol/L Chloride 107 mmol/L CO2 24 mmol/L Anion Gap 12.9 BUN 14 mg/dL Creatinine 0.7 mg/dL Cr Clearance (Est) 92.6500 mL/min Glucose 93 mg/dL Osmolality - Calculated 290 mOsm/kg Calcium 9.0 mg/dL Albumin 3.7 g/dL Globulin 2.4 g/dL Bilirubin, Total 0.4 mg/dL ALT (SGPT) 9 U/L AST (SGOT) 16 U/L Alkaline Phosphatase 64 IU/L PSA 28.830 ng/mL Test performed on Jul 31, 2020 12:00 Testosterone, Total < 2.5 ng/dL Test performed on Apr 29, 2020 12:25 Protein, Total 5.4 g/dL WBC 5.0 10 3/uL RBC 3.86 10 6/uL HGB 12.0 g/dL HCT 38.1 % MCV 98.7 fL MCH 31.1 pg MCHC 31.5 g/dL RDW 14.3 % Platelet Count 200 10 3/cmm MPV 10.9 fL Neutrophils 2.44 10 3/uL Lymphocytes 1.6 10 3/uL Monocytes 0.7 10 3/uL Eosinophils 0.2 10 3/uL Basophils 0.1 10 3/uL Neutrophil % 48.8 % Lymphocyte % 31.6 % Monocyte % 14.6 % Eosinophil % 3.6 % Basophils % 1.0 % NRBC % 0 % Impression: Adenocarcinoma of prostate,Initially diagnosed in July 2009, status post radiation. Prostate and pelvic lymph nodesin April 2010, now with recurrent with pelvic/retroperitoneal lymphadenopathy and abnormal bone scan. On Lupron at [facility] Bone scan done on 05/11/2017 showed no evidence of bony metastatic disease Rising PSA while on Lupron Started on zytiga 1000mg po qd and prednisone 5 mg twice a day on 06/08/2017 in his PSA on June 06/2017 was 134 Fatigue probably multifactorial including hormone withdrawal recent History of fall from the tree, with injury to tailbone and right ribs Bone scan done on 07/20/2017 at [facility] showed 2 new lesions, one in the region of T2 and on in the pelvis likely skeletal metastasis. Multiple ribs lesions probably due to trauma Chest x-ray done on 09/26/2017 showed normal visualized bone structures. No acute changes bone scan done on 09/28/2007 showed metastatic bone disease is stable with no progression or improvement since 07/20/2017 CT scan of abdomen pelvis done on 07/20/2017 at [facility] showed retroperitoneal lymphadenopathy is stable or slightly smaller soft tissue nodule in the Florence's pouch is unchanged New sclerotic lesion in the right anterior sacrum at S1 -S 3 may represent new focus of bone metastases Bone scan done on 07/24/2018 showed no new focus of increased activity, overall decreased activity of previously noted metastatic/posttraumatic changes since 09/28/2017. Unchanged cervicothoracic spine increase activity, probably related to prior anterior fusion changes. CT scan of pelvis done on 07/24/2018 showed no pelvic lymphadenopathy, a small soft tissue nodule measuring 10 mm inseparable from the right iliac vein, has been present since 01/17/2017 Venous Doppler study right leg shows no DVT CT scan of abdomen pelvis done on every 2018 showed incidental left renal cyst without change Prior appendicectomy Stable right-sided pericaval lymph node. Variable appearance of blastic metastatic lesion right sacral luis and right side of S1 vertebral body bone scan done on 11/03/2018 showed increased uptake in right sacrum stable T4 lesion, and resolution of left costochondral lesions Status post radiation therapy to right sacroiliac area Follow-up bone scan done on 10/29/2019 shows no evidence of disease progression, no new area of metastatic disease Stable to slightly improved metastatic lesion involving the right posterior sacrum Additional stable to improve lesion involving the right T4 vertebral body and posterior fourth rib. Follow-up CT PET scan done on 11/10/2019 showed FDG negative, densely sclerotic osseous metastatic disease, consistent with sterilize malignancy. FDG positive lymph nodes in the right common iliac and mediastinal territories consistent with recurrent active malignancy. MRI scan of thoracic spine done on 11/07/2019 showed blastic well circumcised metastatic lesion involving T1 and T5 vertebral bodies likely previous treated, no significant edema or enhancement. No other visualized metastatic lesion. Mild chronic compression superior endplate T4 with incidental hemangioma Mr Aragon was referred to pulmonology for evaluation of mediastinal lymphadenopathy. He underwent bronchoscopy on 12/07/2019 right middle lobe. Endobronchial biopsy showed benign respiratory mucosa and cartilage. No malignancy identified. His PSA has continued to elevate and had recommended changing him to enzalutamide 160 mg p.o. daily and discontinue the Zytiga/prednisone. He will continue with the Xgeva and Lupron.Xtandi was put on hold on April 14, 2020 because of diarrhea Plan: Discussed with patient regarding his labs PSA 28.18 compared to 24.36 on July 31, 2020 and is 16.04 on June 12, 2020 CMP within normal limits magnesium 1.8 Clinically, patient is doing reasonably well but now with progressive mild diarrhea which has resolved when Xtandi was put on hold but restarted on modified dose Xtandi at 80 mg p.o. daily as his PSA which improved with Xtandi, increased to 24.36 and today gone up further to 28.83 and patient started having abdominal symptoms like mild cramps and diarrhea since started on Xtandi, patient lives alone but his daughter lives close by. 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 Return to clinic in 1 week with PSA and testosterone Signed By: Sae Davies M.D. <<Signature on File>>
== END 2020-08-29 08:11 | disposition home or self-care (01) ==
LOC: ONCMED 08:13
PROVIDERS: PCP Internal Medicine; Visit Provider Internal Medicine Hematology & Oncology
DX: C61 Malignant neoplasm of prostate (principal); C79.51 Secondary malignant neoplasm of bone; K52.1 Toxic gastroenteritis and colitis; T38.6X5A Adverse effect of antigonadotrophins, antiestrogens, antiandrogens, not elsewhere classified, initial encounter; Z79.899 Other long term (current) drug therapy; Z92.3 Personal history of irradiation
CPT/HCPCS: 36415; 80053; 83735; 84153; 99214

== ENCOUNTER 2020-09-03 06:08 | Outpatient (CLI) | payer MEDICARE, BC, SELFPAY ==
--- NOTE | 2020-09-03 17:11 | ONC FU_ITS ---
Dr. Davies follow up note Patient: Oli Aragon Unit #: [id number]: 1935 Dicatated By: Sae Davies M.D.Date of Visit:Sep 03, 2020 Onc Med Follow-up/Prog Note History of Present Illness: Mr. Aragon is an 84-year-old gentleman with history of prostate cancer diagnosed with LUZMARIA in June 2009, with his PSA was 16.8 In July 2009, he underwent biopsy of prosrate gland. The final report came back North score 9 (4+5) and Stephanie's 8 (4+4) CT scan of pelvis in showed right obturator lymph nodes. He was started on chemotherapy/biotherapy/hormonal therapy Lupron. In February 2010, followup study showed partial remission and no evidence of disease on scans. from April 2010 to May 2010, he received radiation therapy to a total of 7800 cGy to prostate and pelvic lymph nodes 4500 cGy. From January 2013 to January 2014, he was treated with Casodex with a PSA response. In January 2016 he was noted to have disease progression lymph node size was increasing on scan and PSA gone up to 12.8 On 08/04/2016 plan was to started Zytiga/prednisone , PSA 13.1. On 08/30/2016 PSA was 25.3. His last dose of Lupron was in January 2017. Initially it was given every 3 months and was changed to every 6 months with followup at [facility]. Zytiga was under consideration but because of cost it was not started as per oncology note from [facility] on 01/17/2017. CT scan of abdomen pelvis done at [facility] on 01/17/2017 showed increasing retroperitoneal and right pelvic lymphadenopathy. A bone scan done on 01/17/2017 showed new foci of uptake involving the sacrum are suspicious for skeletal metastases and new focal uptake at the anterior lateral aspect of the right fourth rib. Which is nonspecific for metastatic versus intraoral trauma. Incidental small right upper lobe pulmonary nodule is nonspecific follow-up suggested. In October 2018 Zytiga was obtained for Mr. Cortes. Mr Aragon was tolerating ADT wit lupron and Zytiga/prednisone well. Follow-up CT PET scan done on 11/10/2019 showed FDG negative, densely sclerotic osseous metastatic disease, consistent with sterilize malignancy. FDG positive lymph nodes in the right common iliac and mediastinal territories consistent with recurrent active malignancy. MRI scan of thoracic spine done on 11/07/2019 showed blastic well circumcised metastatic lesion involving T1 and T5 vertebral bodies likely previous treated, no significant edema or enhancement. No other visualized metastatic lesion. Mild chronic compression superior endplate T4 with incidental hemangioma Mr Aragon was referred to pulmonology for evaluation of mediastinal lymphadenopathy. He underwent bronchoscopy on 12/07/2019 right middle lobe. Endobronchial biopsy showed benign respiratory mucosa and cartilage. No malignancy identified. His PSA has continued to elevate and had recommended changing him to enzalutamide 160 mg p.o. daily and discontinue the Zytiga/prednisone. He will continue with the Xgeva and Lupron. started Xtandi On February 09, 2020 While waiting for repeat bronchoscopy, follow-up CT scan of chest was done on March 05, 2020 which showed stable previously described FDG avid normal and slightly prominent lymph nodes right hilum, left AP window and subcarinal hilar lymph nodes are stable. Subcarinal lymph node is slightly enlarged measuring 11 mm unchanged from previous scan done on November 10, 2019. No evidence of progressive lymphadenopathy. Mild chronic emphysematous changes seen. No acute pulmonary infiltrates. Noncalcified fibrotic appearing nodule right upper lobe measuring 4 mm. Sclerotic FDG negative lesions consistent with treated osseous metastatic disease more prominent at T1, T5 and right fifth rib. , Due to persistent severe diarrhea, Xtandi was put on hold on April 14, 2020,Restarted on July 31, 2020 but with low-dose e.g. 80 mg p.o. daily Which was discontinued on August 29, 2020 because of persistent abdominal pain, diarrhea Came for follow-up, denies any specific complaints, abdominal pain has improved since he is off Xtandi no more diarrhea, no nausea or vomiting, no fever chills, no new bony pains. Patient lives alone, today, his family e.g. 2 daughters and [id number] came with him to discuss about treatment options. Medications: Lomotil Tablet Oral PRN, Mirtazapine 1 Tablet (of 15 mg) Oral at bedtime PRN, Ondansetron HCl 1 Tablet (of 4 mg) Oral q 6 hours PRN, Tums 1 (500 mg) Tablet, chewable Oral PRN Allergies: No Known Allergies. Review of Systems: Review of Systems is not available for this patient. Vital Signs: Performed on Sep 03, 2020 15:09 Height - 76.00 in Weight - 181.4 lbs (HIGH) BSA - 2.13 sq.m BMI - 22.08 Temperature - 98.0 F (LOW) Pulse - 68 /min Respiration - 16 /min BP - 146/79 mm(hg) (HIGH) O2 Sat - 97 % Pain - 5 Performance Status: 0 - Fully active, able to carry on all predisease activities without restrictions. (ECOG) Physical Examination: ENMT - No mouth sores, no thrush, no jaundice, Respiratory - Lungs are clear to auscultation, Cardiovascular - Regular rate and rhythm of heart, Abdomen - Soft, bowel sounds present, Extremities - No visible edema. Lab/Imaging: Test performed on Aug 29, 2020 08:25 Magnesium 1.8 mg/dL Sodium 140 mmol/L Potassium 3.9 mmol/L Chloride 107 mmol/L CO2 24 mmol/L Anion Gap 12.9 BUN 14 mg/dL Creatinine 0.7 mg/dL Cr Clearance (Est) 92.6500 mL/min Glucose 93 mg/dL Osmolality - Calculated 290 mOsm/kg Calcium 9.0 mg/dL Protein, Total 6.1 g/dL Albumin 3.7 g/dL Globulin 2.4 g/dL Bilirubin, Total 0.4 mg/dL ALT (SGPT) 9 U/L AST (SGOT) 16 U/L Alkaline Phosphatase 64 IU/L PSA 28.830 ng/mL Test performed on Jul 31, 2020 12:00 Testosterone, Total < 2.5 ng/dL Test performed on Apr 29, 2020 12:25 WBC 5.0 10 3/uL RBC 3.86 10 6/uL HGB 12.0 g/dL HCT 38.1 % MCV 98.7 fL MCH 31.1 pg MCHC 31.5 g/dL RDW 14.3 % Platelet Count 200 10 3/cmm MPV 10.9 fL Neutrophils 2.44 10 3/uL Lymphocytes 1.6 10 3/uL Monocytes 0.7 10 3/uL Eosinophils 0.2 10 3/uL Basophils 0.1 10 3/uL Neutrophil % 48.8 % Lymphocyte % 31.6 % Monocyte % 14.6 % Eosinophil % 3.6 % Basophils % 1.0 % NRBC % 0 % Impression: Adenocarcinoma of prostate,Initially diagnosed in July 2009, status post radiation. Prostate and pelvic lymph nodesin April 2010, now with recurrent with pelvic/retroperitoneal lymphadenopathy and abnormal bone scan. On Lupron at [facility] Bone scan done on 05/11/2017 showed no evidence of bony metastatic disease Rising PSA while on Lupron Started on zytiga 1000mg po qd and prednisone 5 mg twice a day on 06/08/2017 in his PSA on June 06/2017 was 134 Fatigue probably multifactorial including hormone withdrawal recent History of fall from the tree, with injury to tailbone and right ribs Bone scan done on 07/20/2017 at [facility] showed 2 new lesions, one in the region of T2 and on in the pelvis likely skeletal metastasis. Multiple ribs lesions probably due to trauma Chest x-ray done on 09/26/2017 showed normal visualized bone structures. No acute changes bone scan done on 09/28/2007 showed metastatic bone disease is stable with no progression or improvement since 07/20/2017 CT scan of abdomen pelvis done on 07/20/2017 at [facility] showed retroperitoneal lymphadenopathy is stable or slightly smaller soft tissue nodule in the Florence's pouch is unchanged New sclerotic lesion in the right anterior sacrum at S1 -S 3 may represent new focus of bone metastases Bone scan done on 07/24/2018 showed no new focus of increased activity, overall decreased activity of previously noted metastatic/posttraumatic changes since 09/28/2017. Unchanged cervicothoracic spine increase activity, probably related to prior anterior fusion changes. CT scan of pelvis done on 07/24/2018 showed no pelvic lymphadenopathy, a small soft tissue nodule measuring 10 mm inseparable from the right iliac vein, has been present since 01/17/2017 Venous Doppler study right leg shows no DVT CT scan of abdomen pelvis done on every 15 2019 showed incidental left renal cyst without change Prior appendicectomy Stable right-sided pericaval lymph node. Variable appearance of blastic metastatic lesion right sacral luis and right side of S1 vertebral body bone scan done on 11/03/2018 showed increased uptake in right sacrum stable T4 lesion, and resolution of left costochondral lesions Status post radiation therapy to right sacroiliac area Follow-up bone scan done on 10/29/2019 shows no evidence of disease progression, no new area of metastatic disease Stable to slightly improved metastatic lesion involving the right posterior sacrum Additional stable to improve lesion involving the right T4 vertebral body and posterior fourth rib. Follow-up CT PET scan done on 11/10/2019 showed FDG negative, densely sclerotic osseous metastatic disease, consistent with sterilize malignancy. FDG positive lymph nodes in the right common iliac and mediastinal territories consistent with recurrent active malignancy. MRI scan of thoracic spine done on 11/07/2019 showed blastic well circumcised metastatic lesion involving T1 and T5 vertebral bodies likely previous treated, no significant edema or enhancement. No other visualized metastatic lesion. Mild chronic compression superior endplate T4 with incidental hemangioma Mr Aragon was referred to pulmonology for evaluation of mediastinal lymphadenopathy. He underwent bronchoscopy on 12/07/2019 right middle lobe. Endobronchial biopsy showed benign respiratory mucosa and cartilage. No malignancy identified. His PSA has continued to elevate and had recommended changing him to enzalutamide 160 mg p.o. daily and discontinue the Zytiga/prednisone. He will continue with the Xgeva and Lupron.Xtandi was put on hold on April 14, 2020 because of diarrhea Plan: Discussed with patient regarding his disease status and treatment options, clinically it appears patient is not tolerating Xtandi well and now since it has been discontinued, his symptoms especially abdominal pain and diarrhea is improving, Patient lives alone, and is an elderly gentleman but in decent performance status, clinically it appears patient may have had been developing hormone resistant disease and with extensive mediastinal lymphadenopathy, it was decided to offer him systemic chemotherapy with Taxotere every 3 weeks x6 all the side effects possible benefits including but not limited to nausea vomiting, bone marrow suppression, life-threatening infection, peripheral neuropathy, hair loss, were mentioned, patient is somewhat reluctant and wants to discuss with family again before he make up his mind and other option will be trying apalutamide as he could not tolerate enzalutamide and there was response with enzalutamide when his PSA dropped from 26 to 16. Patient will discuss with family and convey us his decision whether to proceed with chemotherapy if he does then will consider Port-A-Cath placement if he decided not to, then will consider apalutamide. Patient return to clinic in 3 weeks with CBC CMP PSA Signed By: Sae Davies M.D. <<Signature on File>>
== END 2020-09-03 06:09 | disposition home or self-care (01) ==
LOC: ONCMED 06:10
PROVIDERS: PCP Internal Medicine; Visit Provider Internal Medicine Hematology & Oncology
DX: C61 Malignant neoplasm of prostate (principal); C79.51 Secondary malignant neoplasm of bone; C77.5 Secondary and unspecified malignant neoplasm of intrapelvic lymph nodes; R10.84 Generalized abdominal pain; K52.1 Toxic gastroenteritis and colitis; T38.7X5A Adverse effect of androgens and anabolic congeners, initial encounter; Z92.3 Personal history of irradiation
CPT/HCPCS: 99214

== ENCOUNTER 2020-09-24 07:44 | Outpatient (CLI) | payer MEDICARE, BC, SELFPAY ==
[2020-09-24 08:43] LABS: Eosinophils # 0.1 10^3/uL (0.0-0.8); Eosinophils % 3.3 %; Hematocrit 40.4 % (42.0-52.0); Hemoglobin 12.9 g/dL (11.7-16.6); Lymphocytes # 1.1 10^3/uL (0.8-4.8); Mean Corpuscular HGB Conc 31.9 g/dL (30.0-36.0); Mean Corpuscular Hemoglobin 31.4 pg (28.0-34.0); Mean Corpuscular Volume 98.3 fL (80-94); Mean Platelet Volume 9.9 fL (7.4-10.4); Monocytes # 0.3 10^3/uL (0.2-0.9); Monocytes % 7.6 %; Neutrophils % 60.6 %; Nucleated Red Blood Cells % 0 %; Platelet Count 159 10^3/cmm (130-400); Red Blood Count 4.11 10^6/uL (4.1-5.3); Red Cell Distribution Width 13.6 % (12.1-15.1)
[2020-09-24 09:29] LABS: Alanine Aminotransferase 9 U/L (0-41); Alkaline Phosphatase 62 IU/L (40-130); Anion Gap 12.1 (5-19); Aspartate Amino Transferase 16 U/L (0-40); Blood Urea Nitrogen 12 mg/dL (8-23); Calcium 8.7 mg/dL (8.5-10.5); Carbon Dioxide 26 mmol/L (22-29); Chloride 105 mmol/L (98-107); Globulin 2.1 g/dL (1.3-4.6); Glucose 114 mg/dL (65-115); Osmolality Calculated 289 mOsm/kg (285-295); Potassium 4.1 mmol/L (3.5-5.1); Sodium 139 mmol/L (136-145); Total Bilirubin 0.4 mg/dL (0.15-1.2); Total Protein 6.1 g/dL (6.6-8.7)
--- NOTE | 2020-09-26 13:20 | ONC FU_ITS ---
Dr. Davies follow up note Patient: Oli Aragon Unit #: [id number]: 1935 Dicatated By: Sae Davies M.D.Date of Visit:Sep 24, 2020 Onc Med Follow-up/Prog Note History of Present Illness: Mr. Aragon is an 84-year-old gentleman with history of prostate cancer diagnosed with LUZMARIA in June 2009, with his PSA was 16.8 In July 2009, he underwent biopsy of prosrate gland. The final report came back Andrews score 9 (4+5) and Stephanie's 8 (4+4) CT scan of pelvis in showed right obturator lymph nodes. He was started on chemotherapy/biotherapy/hormonal therapy Lupron. In February 2010, followup study showed partial remission and no evidence of disease on scans. from April 2010 to May 2010, he received radiation therapy to a total of 7800 cGy to prostate and pelvic lymph nodes 4500 cGy. From January 2013 to January 2014, he was treated with Casodex with a PSA response. In January 2016 he was noted to have disease progression lymph node size was increasing on scan and PSA gone up to 12.8 On 08/04/2016 plan was to started Zytiga/prednisone , PSA 13.1. On 08/30/2016 PSA was 25.3. His last dose of Lupron was in January 2017. Initially it was given every 3 months and was changed to every 6 months with followup at [facility]. Zytiga was under consideration but because of cost it was not started as per oncology note from [facility] on 01/17/2017. CT scan of abdomen pelvis done at [facility] on 01/17/2017 showed increasing retroperitoneal and right pelvic lymphadenopathy. A bone scan done on 01/17/2017 showed new foci of uptake involving the sacrum are suspicious for skeletal metastases and new focal uptake at the anterior lateral aspect of the right fourth rib. Which is nonspecific for metastatic versus intraoral trauma. Incidental small right upper lobe pulmonary nodule is nonspecific follow-up suggested. In October 2018 Zytiga was obtained for Mr. Cortes. Mr Aragon was tolerating ADT wit lupron and Zytiga/prednisone well. Follow-up CT PET scan done on 11/10/2019 showed FDG negative, densely sclerotic osseous metastatic disease, consistent with sterilize malignancy. FDG positive lymph nodes in the right common iliac and mediastinal territories consistent with recurrent active malignancy. MRI scan of thoracic spine done on 11/07/2019 showed blastic well circumcised metastatic lesion involving T1 and T5 vertebral bodies likely previous treated, no significant edema or enhancement. No other visualized metastatic lesion. Mild chronic compression superior endplate T4 with incidental hemangioma Mr Aragon was referred to pulmonology for evaluation of mediastinal lymphadenopathy. He underwent bronchoscopy on 12/07/2019 right middle lobe. Endobronchial biopsy showed benign respiratory mucosa and cartilage. No malignancy identified. His PSA has continued to elevate and had recommended changing him to enzalutamide 160 mg p.o. daily and discontinue the Zytiga/prednisone. He will continue with the Xgeva and Lupron. started Xtandi On February 09, 2020 While waiting for repeat bronchoscopy, follow-up CT scan of chest was done on March 05, 2020 which showed stable previously described FDG avid normal and slightly prominent lymph nodes right hilum, left AP window and subcarinal hilar lymph nodes are stable. Subcarinal lymph node is slightly enlarged measuring 11 mm unchanged from previous scan done on November 10, 2019. No evidence of progressive lymphadenopathy. Mild chronic emphysematous changes seen. No acute pulmonary infiltrates. Noncalcified fibrotic appearing nodule right upper lobe measuring 4 mm. Sclerotic FDG negative lesions consistent with treated osseous metastatic disease more prominent at T1, T5 and right fifth rib. , Due to persistent severe diarrhea, Xtandi was put on hold on April 14, 2020,Restarted on July 31, 2020 but with low-dose e.g. 80 mg p.o. daily Which was discontinued on August 29, 2020 because of persistent abdominal pain, diarrhea Came for follow-up, denies any specific complaint except indigestion/heartburn but no chest pain, no shortness of breath no palpitation, no abdominal pain, no diarrhea or constipation, no new bony pains., Patient has decided to proceed with systemic chemotherapy with Taxotere as long as tolerated along with Lupron and Xgeva. Medications: Lomotil Tablet Oral PRN, Mirtazapine 1 Tablet (of 15 mg) Oral at bedtime PRN, Ondansetron HCl 1 Tablet (of 4 mg) Oral q 6 hours PRN, Tums 1 (500 mg) Tablet, chewable Oral PRN Allergies: No Known Allergies. Review of Systems: Review of Systems is not available for this patient. Vital Signs: Performed on Sep 24, 2020 10:20 Height - 76.00 in Weight - 179.8 lbs (LOW) BSA - 2.12 sq.m BMI - 21.89 Temperature - 97.4 F (LOW) Pulse - 68 /min Respiration - 17 /min BP - 151/80 mm(hg) (HIGH) O2 Sat - 99 % Pain - 8 Performance Status: 2 - Ambulatory/capable of all self-care, unable to perform any work activities. Up and about more than 50% of waking hours. (ECOG) Physical Examination: ENMT - No mouth sores, no thrush, no jaundice, Respiratory - Lungs are clear to auscultation, Cardiovascular - Regular rate and rhythm of heart, Abdomen - Soft, bowel sounds present, Extremities - No visible edema. Lab/Imaging: Test performed on Aug 29, 2020 08:25 Magnesium 1.8 mg/dL Sodium 140 mmol/L Potassium 3.9 mmol/L Chloride 107 mmol/L CO2 24 mmol/L Anion Gap 12.9 BUN 14 mg/dL Creatinine 0.7 mg/dL Cr Clearance (Est) 92.6500 mL/min Glucose 93 mg/dL Osmolality - Calculated 290 mOsm/kg Calcium 9.0 mg/dL Protein, Total 6.1 g/dL Albumin 3.7 g/dL Globulin 2.4 g/dL Bilirubin, Total 0.4 mg/dL ALT (SGPT) 9 U/L AST (SGOT) 16 U/L Alkaline Phosphatase 64 IU/L PSA 28.830 ng/mL Test performed on Jul 31, 2020 12:00 Testosterone, Total < 2.5 ng/dL Test performed on Apr 29, 2020 12:25 WBC 5.0 10 3/uL RBC 3.86 10 6/uL HGB 12.0 g/dL HCT 38.1 % MCV 98.7 fL MCH 31.1 pg MCHC 31.5 g/dL RDW 14.3 % Platelet Count 200 10 3/cmm MPV 10.9 fL Neutrophils 2.44 10 3/uL Lymphocytes 1.6 10 3/uL Monocytes 0.7 10 3/uL Eosinophils 0.2 10 3/uL Basophils 0.1 10 3/uL Neutrophil % 48.8 % Lymphocyte % 31.6 % Monocyte % 14.6 % Eosinophil % 3.6 % Basophils % 1.0 % NRBC % 0 % Impression: Adenocarcinoma of prostate,Initially diagnosed in July 2009, status post radiation. Prostate and pelvic lymph nodesin April 2010, now with recurrent with pelvic/retroperitoneal lymphadenopathy and abnormal bone scan. On Lupron at [facility] Bone scan done on 05/11/2017 showed no evidence of bony metastatic disease Rising PSA while on Lupron Started on zytiga 1000mg po qd and prednisone 5 mg twice a day on 06/08/2017 in his PSA on June 06/2017 was 134 Fatigue probably multifactorial including hormone withdrawal recent History of fall from the tree, with injury to tailbone and right ribs Bone scan done on 07/20/2017 at [facility] showed 2 new lesions, one in the region of T2 and on in the pelvis likely skeletal metastasis. Multiple ribs lesions probably due to trauma Chest x-ray done on 09/26/2017 showed normal visualized bone structures. No acute changes bone scan done on 09/28/2007 showed metastatic bone disease is stable with no progression or improvement since 07/20/2017 CT scan of abdomen pelvis done on 07/20/2017 at [facility] showed retroperitoneal lymphadenopathy is stable or slightly smaller soft tissue nodule in the Florence's pouch is unchanged New sclerotic lesion in the right anterior sacrum at S1 -S 3 may represent new focus of bone metastases Bone scan done on 07/24/2018 showed no new focus of increased activity, overall decreased activity of previously noted metastatic/posttraumatic changes since 09/28/2017. Unchanged cervicothoracic spine increase activity, probably related to prior anterior fusion changes. CT scan of pelvis done on 07/24/2018 showed no pelvic lymphadenopathy, a small soft tissue nodule measuring 10 mm inseparable from the right iliac vein, has been present since 01/17/2017 Venous Doppler study right leg shows no DVT CT scan of abdomen pelvis done on every 2018 showed incidental left renal cyst without change Prior appendicectomy Stable right-sided pericaval lymph node. Variable appearance of blastic metastatic lesion right sacral luis and right side of S1 vertebral body bone scan done on 11/03/2018 showed increased uptake in right sacrum stable T4 lesion, and resolution of left costochondral lesions Status post radiation therapy to right sacroiliac area Follow-up bone scan done on 10/29/2019 shows no evidence of disease progression, no new area of metastatic disease Stable to slightly improved metastatic lesion involving the right posterior sacrum Additional stable to improve lesion involving the right T4 vertebral body and posterior fourth rib. Follow-up CT PET scan done on 11/10/2019 showed FDG negative, densely sclerotic osseous metastatic disease, consistent with sterilize malignancy. FDG positive lymph nodes in the right common iliac and mediastinal territories consistent with recurrent active malignancy. MRI scan of thoracic spine done on 11/07/2019 showed blastic well circumcised metastatic lesion involving T1 and T5 vertebral bodies likely previous treated, no significant edema or enhancement. No other visualized metastatic lesion. Mild chronic compression superior endplate T4 with incidental hemangioma Mr Aragon was referred to pulmonology for evaluation of mediastinal lymphadenopathy. He underwent bronchoscopy on 12/07/2019 right middle lobe. Endobronchial biopsy showed benign respiratory mucosa and cartilage. No malignancy identified. His PSA has continued to elevate and had recommended changing him to enzalutamide 160 mg p.o. daily and discontinue the Zytiga/prednisone. He will continue with the Xgeva and Lupron.Xtandi was put on hold on April 14, 2020 because of diarrhea Plan: Discussed with patient regarding his labs white blood count 4 hemoglobin 12.9 hematocrit 40.4 platelets 159,000 CMP within normal limits PSA is 41.69 compared to 28.83 on August 29, 2020 Clinically, patient doing reasonably well but his follow-up lab work-up shows disease progression as PSA has progressed further while on Lupron/Xgeva and he could not tolerate even modified dose Xtandi which was discontinued and now systemic therapy with Taxotere is recommended and patient agreed, considering his age, will consider biweekly regimen, patient is here for chemo teaching and we will see him back 1 week after his first dose of biweekly Taxotere with CBC CMP As far as indigestion is concerned, we will give him Prevacid he will take 30 mg p.o. every morning. Patient was advised to avoid spicy foods or coffee or alcohol. Signed By: Sae Davies M.D. <<Signature on File>>
== END 2020-09-24 07:45 | disposition home or self-care (01) ==
LOC: ONCMED 07:46
PROVIDERS: PCP Internal Medicine; Visit Provider Internal Medicine Hematology & Oncology
DX: C61 Malignant neoplasm of prostate (principal); C77.8 Secondary and unspecified malignant neoplasm of lymph nodes of multiple regions; R97.20 Elevated prostate specific antigen [PSA]; R07.81 Pleurodynia; M53.3 Sacrococcygeal disorders, not elsewhere classified; K30 Functional dyspepsia; Z79.899 Other long term (current) drug therapy
CPT/HCPCS: 36415; 80053; 84153; 85025; 99215

== ENCOUNTER → 2020-10-09 08:12 | Outpatient (BNVA) | payer MEDICARE, BC, SELFPAY | PROVIDERS: PCP Internal Medicine; Visit Provider Surgery | DX: Z01.812 Encounter for preprocedural laboratory examination (principal) | CPT/HCPCS: 87635 ==

== ENCOUNTER 2020-10-14 08:39 | Day surgery (SDC) | payer MEDICARE, BC, SELFPAY ==
[2020-10-10 14:29] VITALS: BMI 21.9
--- NOTE | 2020-10-14 | SCC_ITS ---
Procedure Done: Right subclavian vein PowerPort placement under fluoroscopic guidance(done by me under through the whole entire procedure) 11.5 seconds of fluoroscopic guidance, for a cumulative dose of 1.07 mGy, was provided to Dr. Ashton by the radiology department. C-arm images of the chest were saved for the patient's permanent record. [facility]
--- NOTE | 2020-10-14 08:47 | SC_ITS ---
WS: [id number] INTRAOPERATIVE TECHNIQUE: 2 Spot fluoroscopic images for intraoperative purposes. FLUOROSCOPY TIME: 11.5 seconds CLINICAL INFORMATION: Powerport Placement COMPARISON: None. FINDINGS: Right Port-A-Cath with tip in the distal SVC. No visualized pneumothorax. SC/C-arm FL for CVA [id number] IMPRESSION: Images obtained for intraoperative purposes.
[2020-10-14 08:57] VITALS: BP 131/78; PULSE 64; RESP 18; TEMP 36.7; O2SAT 97
[2020-10-14] MEDS: sodium chloride 0.9% 1,000 ML 30 ML IV (09:22)
--- NOTE | 2020-10-14 10:38 | ANES.PREANE2 ---
Pre-Anesthetic Assessment Pre-Anesthetic Assessment: Height/Weight: Height 1.93 m Weight 81.647 kg Temp Pulse Resp BP Pulse Ox 98.0 F 64 18 131/78 97 10/14/20 08:57 10/14/20 08:57 10/14/20 08:57 10/14/20 08:57 10/14/20 08:57 Preop Diagnosis: Prostate cancer Proposed Procedure: Operation Date: 10/14/20 10:20 Proposed Procedures p Portacath Placement 08786 C61(Not Applicable) - Reyes Ashton MD Was Beta Dani taken within 24 hours: N/A Last intake: Intake Last Liquid Date 10/13/20 Last Solid Date 10/13/20 Social: Social History: No alcohol and No tobacco Exam: Pre-Anes Outpt Exam: alert, oriented x 3, clear to auscultation bilaterally and regular rate & rhythm Airway: Submandibular: WNL Cervical ROM: WNL MP: 2 Dentition: Partials CV/HEM: Comments: Chest mass GI: GI: GERD Anesthetic Plan: ASA status: 2 Risk of > 500 ml blood loss (7ml/kg in children): No Meds/Allergies Current Medications: Current Medications Generic Name Dose Route Start Last Admin Trade Name Freq PRN Reason Stop Dose Admin Sodium Chloride 1,000 mls @ 30 ml s/hr 10/14/20 09:00 10/14/20 09:22 Sodium Chloride 0.9% IV 10/15/20 08:59 30 mls/hr .Q24H [place] Administration PFSH Anesthesia PFSH: Medical History Adenocarcinoma of prostate C. difficile colitis Mediastinal adenopathy (Unknown) Surgical History H/O neck surgery History of appendectomy Family History Other Cancer Stroke Social History Smoking and tobacco status: former smoker Quit status (tobacco): has quit using tobacco Year quit tobacco: 1970 - 1PPD x 5 Years Second hand smoke exposure: No Alcohol intake: former Lives independently: Yes Household members: spouse Marital status: Current occupational status: retired History of recent travel: No Current gender identity: Male Data Anesthesia Cardiac Studies: No Data to Display
--- NOTE | 2020-10-14 10:59 | W.PM.OPSUD ---
Surgery/Procedure H&P Update DATE OF PROCEDURE: October 14, 2020 DATE H&P PERFORMED: 09/22/20 H&P UPDATE INFORMATION: I have reviewed H&P completed within last 30 days, I have examined patient prior to procedure and No changes to prior documentation PREOP DIAGNOSIS: Prostate cancer PRIMARY INDICATION FOR PROCEDURE: The same PLANNED PROCEDURE: Operation Date: 10/14/20 10:20 Proposed Procedures p Portacath Placement [id number] C61(Not Applicable) - Reyes Ashton MD
[2020-10-14] MEDS: lidocaine 2% INJ 20 mL INJECTION (11:43)
[2020-10-14] MEDS: heparin, porcine 1,000 unit/mL INJ 10 mL 9000 UNIT IRRIGATION (11:44)
--- NOTE | 2020-10-14 12:00 | XR_ITS ---
WS: [id number] Exam: XR chest 1V portable [id number] Date/Time of Exam: 10/14/2020 12:00 PM Reason For Exam: Status post placement of PowerPort Comparison 10/29/2019. The lungs are fully inflated and clear. A right subclavian port is been placed and ends in the lower one third of the SVC in satisfactory position. Several calcified granulomas in both lungs. XR/XR chest 1V portable [id number] IMPRESSION: 1. Right subclavian port ending at the lower one third of the SVC in good posit ion. 2. No acute process noted.
--- NOTE | 2020-10-14 12:00 | P.OP_ITS ---
Operative Report Date of procedure: October 14, 2020 Pre-op Diagnosis: Prostate cancer Post-op diagnosis: same Procedure Done: Right subclavian vein PowerPort placement under fluoroscopic guidance(done by me under through the whole entire procedure) Implants: Right subclavian vein PowerPort placement Surgeon: Reyes Ashton Facilities Manager: Surgical savi Hansen Circulating nurse Chantal Seals Anesthesia: MAC (housing project manager Will Smart) Estimated blood loss (mL): 5 Brief History: This is a pleasant 84 years old gentleman history of metastatic prostate cancer. Requiring PowerPort placement for chemotherapy. Plan of care; After thorough history physical examination and reviewing the chart, I counseled the patient for PowerPort placement, indications, risks including pneumothorax and injury of major vascular structures, benefits,indications and alternatives were all discussed with the patient, patient understands and is interested to proceed. Rationale was carefully and clearly discussed with the patient.Appropriate in formed consent have been reviewed and signed. Procedure: Patient was identified in the holding area and taken to the operative room and placed in supine position IV propofol was given by the anesthesia provider ,both arms were tucked,Time-out was done verifying the patient's name/date of /planned procedure and destination after the procedure, all were in agreement. SCDs confirmed to be functioning, preoperative antibiotics administered per protocol, and beta timothy protocol was confirmed, appropriate positioning of the patient was done by me. Medications were reviewed to assess for anticoagulant usage. Risks and benefits and prevention of central line associated blood stream infection (CLABSI) were discussed with the patient/CPOA, and a consent was obtained. Monitors were in place and monitored throughout the procedure. All necessary supplies were available prior to start. Hand hygiene was completed prior to starting. Maxim um barrier technique was utilized including a sterile gown, sterile gloves with a hat and mask. Site was was prepped with [chlorhexidine] and a full body drape was placed. 5 mL of 2% lidocaine was injected into the skin with a 25 gauge needle. Prep& drape was done under the usual sterile technique, lidocaine 2% was injected at the site of the stick, started by right subclavian stick that retrieved venous blood was obtained after couple of sticks,a guidewire was then threaded and under the guidance of fluoroscopy position was confirmed to be in the IVC and my interpretation, there was no PVC changes, at that point the guidewire was secured to the drapes with a hemostat and the needle was taken out, attention was then deviated towards creation of a pocket for the port were lidocaine 2% was injected using an 15 blade knife skin incision was created dissection using the Bovie to create a pocket for the Port-A-Cath to be accommodated, hemostasis was secured, after the port being appropriately flushed it was inserted into the pocket and a tunneler was used to accommodate the catheter of the port cath to be delivered through the incision first created at the site of the stick, at that point under fluoroscopy an estimated length was measured for the catheter and was cut at the designed level, followed by that a dilator with the sheath introduced onto the guidewire the dilator and the wire were retrieved and the catheter of the port was introduced via the sheath where it was peeled off and the catheter maintained to be in the SVC that was confirmed with fluoroscopy, and the fluoroscopy interpretation was done by me throughout the entire procedure. The port was kept in its pocket, 3-0 Vicryl deep subdermal interrupted sutures, skin was then closed by 4-0 Monocryl as subcuticular closure. The stick site was closed by 3-0 Vicryl and surgical glue was used followed by dressing. Patient tolerated the procedure well was taken to the recovery area Count was correct at the end of the procedure I was present for the whole entire procedure Position of the catheter was checked with a postoperative chest x-ray and it was in good position without evidence of pneumothorax
[2020-10-14 12:07] VITALS: BP 136/90; PULSE 58; RESP 18; TEMP 36.3; O2SAT 99
--- NOTE | 2020-10-14 13:36 | ANE.PACU2 ---
Inpatient post-anesthesia follow up: Airway intact: Yes Vital signs: Temperature 97.4 F Pulse Rate 58 Respiratory Rate 18 Blood Pressure 136/90 Pulse Oximetry 99 Oxygen Delivery Me thod Room Air Oxygen Flow Rate Fraction of Inspir ed Oxygen Hydration adequate: Yes Nausea and vomiting: No Pain level: 1 Mental status: Baseline
== END 2020-10-14 12:52 | disposition home or self-care (01) ==
PROVIDERS: PCP Internal Medicine; Visit Provider Surgery
PROC: (CPT 36561; principal; 2020-10-14 10:20)
DX: C61 Malignant neoplasm of prostate (principal); Z87.891 Personal history of nicotine dependence
CPT/HCPCS: 36561; 12345; 71045; 76000; 77001; C1788; J0690; J1644; J3010; J7030

== ENCOUNTER 2020-10-28 08:54 | Outpatient (CLI) | payer MEDICARE, BC, SELFPAY ==
[2020-10-28 09:36] LABS: Basophils % 0.1 %; Hematocrit 38.1 % (42.0-52.0); Hemoglobin 12.7 g/dL (11.7-16.6); Lymphocytes # 1.1 10^3/uL (0.8-4.8); Mean Corpuscular HGB Conc 33.3 g/dL (30.0-36.0); Mean Corpuscular Hemoglobin 31.8 pg (28.0-34.0); Mean Corpuscular Volume 95.5 fL (80-94); Mean Platelet Volume 9.8 fL (7.4-10.4); Monocytes # 0.5 10^3/uL (0.2-0.9); Monocytes % 7.1 %; Neutrophils # 5.55 10^3/uL (1.8-7.7); Neutrophils % 77.4 %; Nucleated Red Blood Cells % 0 %; Platelet Count 192 10^3/cmm (130-400); Red Blood Count 3.99 10^6/uL (4.1-5.3); Red Cell Distribution Width 12.9 % (12.1-15.1); White Blood Count 7.2 10^3/uL (4.0-10.0)
[2020-10-28 10:16] LABS: Alanine Aminotransferase 12 U/L (0-41); Albumin Level 4.2 g/dL (3.5-5.2); Alkaline Phosphatase 60 IU/L (40-130); Anion Gap 13.6 (5-19); Aspartate Amino Transferase 14 U/L (0-40); Blood Urea Nitrogen 20 mg/dL (8-23); Calcium 9.4 mg/dL (8.5-10.5); Carbon Dioxide 23 mmol/L (22-29); Chloride 106 mmol/L (98-107); Globulin 2.5 g/dL (1.3-4.6); Glucose 117 mg/dL (65-115); Osmolality Calculated 292 mOsm/kg (285-295); Potassium 3.6 mmol/L (3.5-5.1); Sodium 139 mmol/L (136-145); Total Bilirubin 0.3 mg/dL (0.15-1.2); Total Protein 6.7 g/dL (6.6-8.7)
[2020-10-28] MEDS: famotidine 20 mg/2 mL INJ IVP (10:32)
[2020-10-28] MEDS: sodium chloride 0.9% 250 ML 75 ML IV (10:32)
[2020-10-28] MEDS: diphenhydrAMINE 50 mg/mL SDV 1mL 25 MG IV (10:35)
[2020-10-28] MEDS: palonosetron 0.25 mg/5 mL SDV IV (10:40)
== END 2020-10-28 08:55 | disposition home or self-care (01) ==
PROVIDERS: Internal Medicine Hematology & Oncology; PCP Internal Medicine; Visit Provider Internal Medicine Medical Oncology
DX: Z51.11 Encounter for antineoplastic chemotherapy (principal); C61 Malignant neoplasm of prostate; C79.51 Secondary malignant neoplasm of bone; C77.5 Secondary and unspecified malignant neoplasm of intrapelvic lymph nodes
CPT/HCPCS: 80053; 84153; 85025; 96367; 96375; 96413; J1100; J1200; J2469; J3490; J7050; J9171

== ENCOUNTER 2020-11-12 05:57 | Outpatient (CLI) | payer MEDICARE, BC, SELFPAY ==
[2020-11-12 12:33] LABS: Basophils % 1.1 %; Eosinophils % 0.8 %; Hematocrit 36.1 % (42.0-52.0); Hemoglobin 11.5 g/dL (11.7-16.6); Lymphocytes # 1.2 10^3/uL (0.8-4.8); Lymphocytes % 32.3 %; Mean Corpuscular HGB Conc 31.9 g/dL (30.0-36.0); Mean Corpuscular Hemoglobin 31.1 pg (28.0-34.0); Mean Corpuscular Volume 97.6 fL (80-94); Mean Platelet Volume 9.1 fL (7.4-10.4); Monocytes # 0.6 10^3/uL (0.2-0.9); Monocytes % 15.8 %; Neutrophils # 1.74 10^3/uL (1.8-7.7); Neutrophils % 47.3 %; Nucleated Red Blood Cells % 0 %; Platelet Count 243 10^3/cmm (130-400); Red Cell Distribution Width 12.8 % (12.1-15.1); White Blood Count 3.7 10^3/uL (4.0-10.0)
[2020-11-12 12:54] LABS: Alanine Aminotransferase 11 U/L (0-41); Albumin Level 3.6 g/dL (3.5-5.2); Alkaline Phosphatase 55 IU/L (40-130); Anion Gap 10.8 (5-19); Aspartate Amino Transferase 15 U/L (0-40); Blood Urea Nitrogen 15 mg/dL (8-23); Calcium 8.4 mg/dL (8.5-10.5); Carbon Dioxide 24 mmol/L (22-29); Chloride 105 mmol/L (98-107); Globulin 2.5 g/dL (1.3-4.6); Glucose 111 mg/dL (65-115); Osmolality Calculated 284 mOsm/kg (285-295); Potassium 3.8 mmol/L (3.5-5.1); Sodium 136 mmol/L (136-145); Total Bilirubin 0.2 mg/dL (0.15-1.2); Total Protein 6.1 g/dL (6.6-8.7)
--- NOTE | 2020-11-17 14:48 | ONC FU_ITS ---
[facility] Patient Note Patient: Oli Aragon Unit #: [id number]: [id number] Dictated By: Nadine GarrisonDate of Visit: Nov 12, 2020 Onc MED Follow-Up/Prog Note Chief Complaint: Prostate cancer History of Present Illness: Mr. Aragon is an 84-year-old gentleman with history of prostate cancer diagnosed with LUZMARIA in June 2009, with his PSA was 16.8 In July 2009, he underwent biopsy of prostate gland. The final report came back Stephanie score 9 (4+5) and [place]'s 8 (4+4) CT scan of pelvis in showed right obturator lymph nodes. He was started on chemotherapy/biotherapy/hormonal therapy Lupron. In February 2010, followup study showed partial remission and no evidence of disease on scans. from April 2010 to May 2010, he received radiation therapy to a total of 7800 cGy to prostate and pelvic lymph nodes 4500 cGy. From January 2013 to January 2014, he was treated with Casodex with a PSA response. In January 2016 he was noted to have disease progression lymph node size was increasing on scan and PSA gone up to 12.8 On 08/04/2016 plan was to started Zytiga/prednisone , PSA 13.1. On 08/30/2016 PSA was 25.3. His last dose of Lupron was in January 2017. Initially it was given every 3 months and was changed to every 6 months with followup at [facility]. Zytiga was under consideration but because of cost it was not started as per oncology note from [facility] on 01/17/2017. CT scan of abdomen pelvis done at [facility] on 01/17/2017 showed increasing retroperitoneal and right pelvic lymphadenopathy. A bone scan done on 01/17/2017 showed new foci of uptake involving the sacrum are suspicious for skeletal metastases and new focal uptake at the anterior lateral aspect of the right fourth rib. Which is nonspecific for metastatic versus intraoral trauma. Incidental small right upper lobe pulmonary nodule is nonspecific follow-up suggested. In October 2018 Zytiga was obtained for Mr. Cortes. Mr Aragon was tolerating ADT wit lupron and Zytiga/prednisone well. Follow-up CT PET scan done on 11/10/2019 showed FDG negative, densely sclerotic osseous metastatic disease, consistent with sterilize malignancy. FDG positive lymph nodes in the right common iliac and mediastinal territories consistent with recurrent active malignancy. MRI scan of thoracic spine done on 11/07/2019 showed blastic well circumcised metastatic lesion involving T1 and T5 vertebral bodies likely previous treated, no significant edema or enhancement. No other visualized metastatic lesion. Mild chronic compression superior endplate T4 with incidental hemangioma Mr Aragon was referred to pulmonology for evaluation of mediastinal lymphadenopathy. He underwent bronchoscopy on 12/07/2019 right middle lobe. Endobronchial biopsy showed benign respiratory mucosa and cartilage. No malignancy identified. His PSA has continued to elevate and had recommended changing him to enzalutamide 160 mg p.o. daily and discontinue the Zytiga/prednisone. He will continue with the Xgeva and Lupron. started Xtandi On February 09, 2020 While waiting for repeat bronchoscopy, follow-up CT scan of chest was done on March 05, 2020 which showed stable previously described FDG avid normal and slightly prominent lymph nodes right hilum, left AP window and subcarinal hilar lymph nodes are stable. Subcarinal lymph node is slightly enlarged measuring 11 mm unchanged from previous scan done on November 10, 2019. No evidence of progressive lymphadenopathy. Mild chronic emphysematous changes seen. No acute pulmonary infiltrates. Noncalcified fibrotic appearing nodule right upper lobe measuring 4 mm. Sclerotic FDG negative lesions consistent with treated osseous metastatic disease more prominent at T1, T5 and right fifth rib. Due to persistent severe diarrhea, Xtandi was put on hold on April 14, 2020,Restarted on July 31, 2020 but with low-dose e.g. 80 mg p.o. daily Which was discontinued on August 29, 2020 because of persistent abdominal pain, diarrhea. Mr Aragon was offered chemotherapy with Docetaxel/Taxotere. He began his first cycle on October 28, 2020. He will continue Depo-Lupron as well as denosumab. Mr. Aragon is here today for day follow-up after starting his Taxotere on October 28, 2020. His date of visit is delayed due to increment weather. He states overall he feels pretty good. He denies any nausea or vomiting. He has had no diarrhea. He states he has had some lower abdominal pain like around the bladder . He states he has had some pain with urination and some reddish discoloration in his urine. He states that is been lasting for the last week. He denies any fever or chills. He denies any new medication medication. He states in general that he feels pretty good. He has had good appetite. He denies any peripheral neuropathy at this time. His ECOG is 1. Past Medical History: COVID 19 in 2019 Past Surgical History: Neck surgery in 2013 Appendectomy in 1970 Allergies: No Known Allergies. Medications: Lomotil Tablet Oral PRN Mirtazapine 1 Tablet (of 15 mg) Oral at bedtime PRN Ondansetron HCl 1 Tablet (of 4 mg) Oral q 6 hours PRN Tums 1 (500 mg) Tablet, chewable Oral PRN Family History: Mr. Aragon's mother at age 89. Mr. Aragon's father at age 94. Social History: Mr. Aragon is and he is retired. Mr. Aragon no longer smokes but had smoked 0.5 packs/day for 7 years. He has no history of drinking. Mr. Aragon reports the following support systems: lives with spouse, significant other, family, or friends, lives in own house, supportive family/friends willing to assist with needs, and adequate transportation available for expected visits. His diet consists of regular meals. He indicates his activity level as: daily activities. Review Of Symptoms: Constitutional Denies fevers, chills, night sweats, excessive fatigue or weight loss. Allergic/Immunologic No reactions. Eyes Denies significant visual changes. No diplopia. No amaurosis. ENMT Denies changes in hearing, sore throat, mouth sores, difficulty or changes in swallowing ability, and/or sinus drainage. Hematologic/Lymphatic Denies easy bruising or bleeding. The patient denies any tender or palpable lymph nodes. Respiratory Denies dyspnea on exertion, chest pain, cough or hemoptysis. Denies orthopnea. Cardiovascular Denies anginal chest pain, palpitations or orthopnea. Gastrointestinal Denies nausea, vomiting, diarrhea, GI bleeding, or constipation. Denies change in bowel habits and/or stool color, no heartburn or early satiety. Genitourinary (M) He is having mild hematuria and discomfort on urination but no increased frequency, urgency, hesitancy or incontinence. Musculoskeletal Denies joint pain, swelling or redness. No decreased range of motion. Integumentary Denies chronic rashes, inflammation, ulcerations or skin changes. Neurologic Denies headache, blurred vision, and no areas of focal weakness or numbness. Normal gait. No sensory problems. Psychiatric Denies insomnia, depression, samson or mood swings. Vital Signs: Performed on Nov 12, 2020 13:46 Height - 76.00 in Weight - 180.0 lbs (HIGH) BSA - 2.12 sq.m BMI - 21.91 Temperature - 97.4 F (LOW) Pulse - 80 /min Respiration - 18 /min BP - 150/83 mm(hg) (HIGH) O2 Sat - 98 % Pain - 0,1 - No physically strenuous activity, but ambulatory and able to carry out light or sedentary work (e.g. office work, light house work). (ECOG) Physical Examination: Constitutional Alert, oriented, no acute distress. Skin pink, warm and dry. Head Normocephalic; atraumatic. Eyes Conjunctivae and sclerae are clear and without icterus. Pupils are reactive and equal. Neck Supple without masses or thyromegaly. No jugular venous distension. Hematologic/Lymphatic No petechiae or purpura. No tender or palpable lymph nodes in the cervical or supraclavicular areas. Respiratory Lungs are clear to auscultation without rhonchi or wheezing. Cardiovascular Regular rate and rhythm of heart without murmurs,clicks, gallops or rubs. Abdomen Non-tender, non-distended, no masses or ascites. Good bowel sounds noted in all quads. No guarding or rebound tenderness. No pulsatile masses. Back/Spine Non-tender to palpation. Extremities No visible deformities, no cyanosis, clubbing or edema. Musculoskeletal No tenderness or swelling, normal range of motion without obvious weakness. Integumentary No rashes or lesions. Neurologic No sensory or motor deficits, normal cerebellar function, normal gait. Psychiatric Alert and oriented times three. Coherent speech. Verbalizes understanding of our discussions today. Laboratory:Test performed on Nov 12, 2020 12:15 Sodium 136 mmol/L Potassium 3.8 mmol/L Chloride 105 mmol/L CO2 24 mmol/L Anion Gap 10.8 BUN 15 mg/dL Creatinine 0.6 mg/dL Cr Clearance (Est) 107.6100 mL/min Glucose 111 mg/dL Osmolality - Calculated 284 mOsm/kg Calcium 8.4 mg/dL Protein, Total 6.1 g/dL Albumin 3.6 g/dL Globulin 2.5 g/dL Bilirubin, Total 0.2 mg/dL ALT (SGPT) 11 U/L AST (SGOT) 15 U/L Alkaline Phosphatase 55 IU/L WBC 3.7 10 3/uL RBC 3.70 10 6/uL HGB 11.5 g/dL HCT 36.1 % MCV 97.6 fL MCH 31.1 pg MCHC 31.9 g/dL RDW 12.8 % Platelet Count 243 10 3/cmm MPV 9.1 fL Neutrophils 1.74 10 3/uL Lymphocytes 1.2 10 3/uL Monocytes 0.6 10 3/uL Eosinophils 0.0 10 3/uL Basophils 0.0 10 3/uL Neutrophil % 47.3 % Lymphocyte % 32.3 % Monocyte % 15.8 % Eosinophil % 0.8 % Basophils % 1.1 % NRBC % 0 % Test performed on Oct 28, 2020 09:16 PSA 46.620 ng/mL Test performed on Aug 29, 2020 08:25 Magnesium 1.8 mg/dL Test performed on Jul 31, 2020 12:00 Testosterone, Total < 2.5 ng/dL Impression: Adenocarcinoma of prostate,Initially diagnosed in July 2009, status post radiation. Prostate and pelvic lymph nodesin April 2010, now with recurrent with pelvic/retroperitoneal lymphadenopathy and abnormal bone scan[facility]2017 showed no evidence of bony metastatic disease Rising PSA while on Lupron Started on zytiga 1000mg po qd and prednisone 5 mg twice a day on 06/08/2017 in his PSA on June 06/2017 was 134 Fatigue probably multifactorial including hormone withdrawal recent History of fall from the tree, with injury to tailbone and right ribs Bone scan done on 07/20/2017 at [facility] showed 2 new lesions, one in the region of T2 and on in the pelvis likely skeletal metastasis. Multiple ribs lesions probably due to trauma Chest x-ray done on 09/26/2017 showed normal visualized bone structures. No acute changes bone scan done on 09/28/2007 showed metastatic bone disease is stable with no progression or improvement since 07/20/2017 CT scan of abdomen pelvis done on 07/20/2017 at [facility] showed retroperitoneal lymphadenopathy is stable or slightly smaller soft tissue nodule in the Florence's pouch is unchanged New sclerotic lesion in the right anterior sacrum at S1 -S 3 may represent new focus of bone metastases Bone scan done on 07/24/2018 showed no new focus of increased activity, overall decreased activity of previously noted metastatic/posttraumatic changes since 09/28/2017. Unchanged cervicothoracic spine increase activity, probably related to prior anterior fusion changes. CT scan of pelvis done on 07/24/2018 showed no pelvic lymphadenopathy, a small soft tissue nodule measuring 10 mm inseparable from the right iliac vein, has been present since 01/17/2017 Venous Doppler study right leg shows no DVT CT scan of abdomen pelvis done on every 2018 showed incidental left renal cyst without change Prior appendicectomy Stable right-sided pericaval lymph node. Variable appearance of blastic metastatic lesion right sacral luis and right side of S1 vertebral body bone scan done on 11/03/2018 showed increased uptake in right sacrum stable T4 lesion, and resolution of left costochondral lesions Status post radiation therapy to right sacroiliac area Follow-up bone scan done on 10/29/2019 shows no evidence of disease progression, no new area of metastatic disease Stable to slightly improved metastatic lesion involving the right posterior sacrum Additional stable to improve lesion involving the right T4 vertebral body and posterior fourth rib. Follow-up CT PET scan done on 11/10/2019 showed FDG negative, densely sclerotic osseous metastatic disease, consistent with sterilize malignancy. FDG positive lymph nodes in the right common iliac and mediastinal territories consistent with recurrent active malignancy. MRI scan of thoracic spine done on 11/07/2019 showed blastic well circumcised metastatic lesion involving T1 and T5 vertebral bodies likely previous treated, no significant edema or enhancement. No other visualized metastatic lesion. Mild chronic compression superior endplate T4 with incidental hemangioma Mr Aragon was referred to pulmonology for evaluation of mediastinal lymphadenopathy. He underwent bronchoscopy on 12/07/2019 right middle lobe. Endobronchial biopsy showed benign respiratory mucosa and cartilage. No malignancy identified. His PSA has continued to elevate and had recommended changing him to enzalutamide 160 mg p.o. daily and discontinue the Zytiga/prednisone. He will continue with the Xgeva and Lupron.Xtandi was put on hold on April 14, 2020 because of diarrhea Plan: PROBLEMS ADDRESSED TODAY 1. Prostate cancer???disease progression on Lupron/Xgeva as his PSA continue to rise. He was unable to tolerate Xtandi and he has now began systemic therapy with docetaxel/Taxotere biweekly. A. He began his first cycle of Taxotere on October 28, 2020. He has tolerated it well overall. B. Today's labs reviewed in detail discussed with Mr. Aragon and a copy was given to him. WBC 3.7, hemoglobin 11.5, platelets 243,000, ANC is 1740. Potassium 3.8 creatinine 0.6 random glucose 111 and LFTs are normal. His PSA on October 28, 2020 was 46.62. It was not redrawn today but will be at his next follow-up visit. His weight is stable at 180. C. He is due for his next dose of Taxotere next week. He was reminded to take his premed steroids. 2. Urinary burning and discolored urine A. We will start him on Macrobid 100 mg twice daily for 7 days and see if his symptoms resolve. B. He could have Pyridium if he has an complaints of burning with urination but that also will make his urine discolored. 3. Gastritis/heartburn A. This is controlled with Prevacid 30 mg daily. 4. Follow-up plan: A. We will plan to see him back in 1 week with CBC CMP and PSA. B. He will be due for chemotherapy at that time. He was reminded to take his steroids as directed prior to the chemotherapy. C. Mr. Aragon was encouraged to contact us in interim should questions or problems arise. Signed By: Nadine Garrison-TRACEY, ANITA Davies MD <<Signature on File>>
== END 2020-11-12 05:58 | disposition home or self-care (01) ==
LOC: ONCMED 06:00
PROVIDERS: PCP Internal Medicine; Visit Provider Nurse Practitioner
DX: C61 Malignant neoplasm of prostate (principal); C79.51 Secondary malignant neoplasm of bone; R97.21 Rising PSA following treatment for malignant neoplasm of prostate; R39.198 Other difficulties with micturition; R82.998 Other abnormal findings in urine; K29.70 Gastritis, unspecified, without bleeding; Z79.899 Other long term (current) drug therapy
CPT/HCPCS: 36591; 80053; 85025; 99214

== ENCOUNTER 2020-11-17 05:27 | Outpatient (CLI) | payer MEDICARE, BC, SELFPAY ==
[2020-11-17 08:25] LABS: Basophils % 0.1 %; Hematocrit 36.8 % (42.0-52.0); Hemoglobin 12.1 g/dL (11.7-16.6); Lymphocytes % 11.9 %; Mean Corpuscular HGB Conc 32.9 g/dL (30.0-36.0); Mean Corpuscular Hemoglobin 31.5 pg (28.0-34.0); Mean Corpuscular Volume 95.8 fL (80-94); Mean Platelet Volume 9.1 fL (7.4-10.4); Monocytes # 0.5 10^3/uL (0.2-0.9); Monocytes % 6.1 %; Neutrophils # 6.81 10^3/uL (1.8-7.7); Neutrophils % 81.4 %; Nucleated Red Blood Cells % 0 %; Platelet Count 237 10^3/cmm (130-400); Red Blood Count 3.84 10^6/uL (4.1-5.3); White Blood Count 8.4 10^3/uL (4.0-10.0)
[2020-11-17 08:50] LABS: Alanine Aminotransferase 9 U/L (0-41); Albumin Level 3.9 g/dL (3.5-5.2); Alkaline Phosphatase 56 IU/L (40-130); Aspartate Amino Transferase 12 U/L (0-40); Blood Urea Nitrogen 19 mg/dL (8-23); Carbon Dioxide 23 mmol/L (22-29); Chloride 106 mmol/L (98-107); Globulin 2.6 g/dL (1.3-4.6); Glucose 105 mg/dL (65-115); Osmolality Calculated 289 mOsm/kg (285-295); Sodium 138 mmol/L (136-145); Total Bilirubin 0.3 mg/dL (0.15-1.2); Total Protein 6.5 g/dL (6.6-8.7)
[2020-11-17] MEDS: sodium chloride 0.9% 250 ML 75 ML IV (10:25)
[2020-11-17] MEDS: famotidine 20 mg/2 mL INJ IVP (10:27)
[2020-11-17] MEDS: diphenhydrAMINE 50 mg/mL SDV 1mL 25 MG IV (10:28)
[2020-11-17] MEDS: palonosetron 0.25 mg/5 mL SDV IV (10:30)
--- NOTE | 2020-11-17 10:33 | ONC FU_ITS ---
Dr. Davies follow up note Patient: Oli Aragon Unit #: [id number]: 1935 Dicatated By: Sae Davies M.D.Date of Visit:Nov 17, 2020 Onc Med Follow-up/Prog Note History of Present Illness: Mr. Aragon is an 84-year-old gentleman with history of prostate cancer diagnosed with LUZMARIA in June 2009, with his PSA was 16.8 In July 2009, he underwent biopsy of prosate gland. The final report came back Stephanie score 9 (4+5) and [place]'s 8 (4+4) CT scan of pelvis in showed right obturator lymph nodes. He was started on chemotherapy/biotherapy/hormonal therapy Lupron. In February 2010, followup study showed partial remission and no evidence of disease on scans. from April 2010 to May 2010, he received radiation therapy to a total of 7800 cGy to prostate and pelvic lymph nodes 4500 cGy. From January 2013 to January 2014, he was treated with Casodex with a PSA response. In January 2016 he was noted to have disease progression lymph node size was increasing on scan and PSA gone up to 12.8 On 08/04/2016 plan was to started Zytiga/prednisone , PSA 13.1. On 08/30/2016 PSA was 25.3. His last dose of Lupron was in January 2017. Initially it was given every 3 months and was changed to every 6 months with followup at [facility]. Zytiga was under consideration but because of cost it was not started as per oncology note from [facility] on 01/17/2017. CT scan of abdomen pelvis done at [facility] on 01/17/2017 showed increasing retroperitoneal and right pelvic lymphadenopathy. A bone scan done on 01/17/2017 showed new foci of uptake involving the sacrum are suspicious for skeletal metastases and new focal uptake at the anterior lateral aspect of the right fourth rib. Which is nonspecific for metastatic versus intraoral trauma. Incidental small right upper lobe pulmonary nodule is nonspecific follow-up suggested. In October 2018 Zytiga was obtained for Mr. Cortes. Mr Aragon was tolerating ADT wit lupron and Zytiga/prednisone well. Follow-up CT PET scan done on 11/10/2019 showed FDG negative, densely sclerotic osseous metastatic disease, consistent with sterilize malignancy. FDG positive lymph nodes in the right common iliac and mediastinal territories consistent with recurrent active malignancy. MRI scan of thoracic spine done on 11/07/2019 showed blastic well circumcised metastatic lesion involving T1 and T5 vertebral bodies likely previous treated, no significant edema or enhancement. No other visualized metastatic lesion. Mild chronic compression superior endplate T4 with incidental hemangioma Mr Aragon was referred to pulmonology for evaluation of mediastinal lymphadenopathy. He underwent bronchoscopy on 12/07/2019 right middle lobe. Endobronchial biopsy showed benign respiratory mucosa and cartilage. No malignancy identified. His PSA has continued to elevate and had recommended changing him to enzalutamide 160 mg p.o. daily and discontinue the Zytiga/prednisone. He will continue with the Xgeva and Lupron. started Xtandi On February 09, 2020 While waiting for repeat bronchoscopy, follow-up CT scan of chest was done on March 05, 2020 which showed stable previously described FDG avid normal and slightly prominent lymph nodes right hilum, left AP window and subcarinal hilar lymph nodes are stable. Subcarinal lymph node is slightly enlarged measuring 11 mm unchanged from previous scan done on November 10, 2019. No evidence of progressive lymphadenopathy. Mild chronic emphysematous changes seen. No acute pulmonary infiltrates. Noncalcified fibrotic appearing nodule right upper lobe measuring 4 mm. Sclerotic FDG negative lesions consistent with treated osseous metastatic disease more prominent at T1, T5 and right fifth rib. Due to persistent severe diarrhea, Xtandi was put on hold on April 14, 2020,Restarted on July 31, 2020 but with low-dose e.g. 80 mg p.o. daily Which was discontinued on August 29, 2020 because of persistent abdominal pain, diarrhea Started on systemic therapy with Taxotere on October 28, 2020 Along with 3 monthly Lupron and Xgeva Came for follow-up, denies any specific complaint except episode of diarrhea and nausea after first cycle of chemotherapy, now resolved, no fever chills, no nausea or vomiting, no new bony pains, no headaches, no sore throat, no dysuria or hematuria, overall feeling much better and tolerated first cycle of chemotherapy with docetaxel well. Medications: Lomotil Tablet Oral PRN, Mirtazapine 1 Tablet (of 15 mg) Oral at bedtime PRN, Ondansetron HCl 1 Tablet (of 4 mg) Oral q 6 hours PRN, Tums 1 (500 mg) Tablet, chewable Oral PRN Allergies: No Known Allergies. Review of Systems: Review of Systems is not available for this patient. Vital Signs: Performed on Nov 17, 2020 09:23 Height - 76.00 in Weight - 178.8 lbs (LOW) BSA - 2.11 sq.m BMI - 21.76 Temperature - 97.5 F (LOW) Pulse - 62 /min Respiration - 18 /min BP - 154/79 mm(hg) (HIGH) O2 Sat - 97 % Pain - 0 Fatigue - 6 Performance Status: 1 - No physically strenuous activity, but ambulatory and able to carry out light or sedentary work (e.g. office work, light house work). (ECOG) Physical Examination: ENMT - Sores, no thrush, no jaundice, Respiratory - Lungs are clear to auscultation, Cardiovascular - Regular rate and rhythm of heart, Abdomen - Soft, bowel sounds present, Extremities - No visible edema. Lab/Imaging: Test performed on Nov 12, 2020 12:15 Sodium 136 mmol/L Potassium 3.8 mmol/L Chloride 105 mmol/L CO2 24 mmol/L Anion Gap 10.8 BUN 15 mg/dL Creatinine 0.6 mg/dL Cr Clearance (Est) 107.6100 mL/min Glucose 111 mg/dL Osmolality - Calculated 284 mOsm/kg Calcium 8.4 mg/dL Protein, Total 6.1 g/dL Albumin 3.6 g/dL Globulin 2.5 g/dL Bilirubin, Total 0.2 mg/dL ALT (SGPT) 11 U/L AST (SGOT) 15 U/L Alkaline Phosphatase 55 IU/L WBC 3.7 10 3/uL RBC 3.70 10 6/uL HGB 11.5 g/dL HCT 36.1 % MCV 97.6 fL MCH 31.1 pg MCHC 31.9 g/dL RDW 12.8 % Platelet Count 243 10 3/cmm MPV 9.1 fL Neutrophils 1.74 10 3/uL Lymphocytes 1.2 10 3/uL Monocytes 0.6 10 3/uL Eosinophils 0.0 10 3/uL Basophils 0.0 10 3/uL Neutrophil % 47.3 % Lymphocyte % 32.3 % Monocyte % 15.8 % Eosinophil % 0.8 % Basophils % 1.1 % NRBC % 0 % Test performed on Oct 28, 2020 09:16 PSA 46.620 ng/mL Test performed on Aug 29, 2020 08:25 Magnesium 1.8 mg/dL Test performed on Jul 31, 2020 12:00 Testosterone, Total < 2.5 ng/dL Impression: Adenocarcinoma of prostate,Initially diagnosed in July 2009, status post radiation. Prostate and pelvic lymph nodesin April 2010, now with recurrent with pelvic/retroperitoneal lymphadenopathy and abnormal bone scan. On Lupron at [facility] Bone scan done on 05/11/2017 showed no evidence of bony metastatic disease Rising PSA while on Lupron Started on zytiga 1000mg po qd and prednisone 5 mg twice a day on 06/08/2017 in his PSA on June 06/2017 was 134 Fatigue probably multifactorial including hormone withdrawal recent History of fall from the tree, with injury to tailbone and right ribs Bone scan done on 07/20/2017 at [facility] showed 2 new lesions, one in the region of T2 and on in the pelvis likely skeletal metastasis. Multiple ribs lesions probably due to trauma Chest x-ray done on 09/26/2017 showed normal visualized bone structures. No acute changes bone scan done on 09/28/2007 showed metastatic bone disease is stable with no progression or improvement since 07/20/2017 CT scan of abdomen pelvis done on 07/20/2017 at [facility] showed retroperitoneal lymphadenopathy is stable or slightly smaller soft tissue nodule in the Florence's pouch is unchanged New sclerotic lesion in the right anterior sacrum at S1 -S 3 may represent new focus of bone metastases Bone scan done on 07/24/2018 showed no new focus of increased activity, overall decreased activity of previously noted metastatic/posttraumatic changes since 09/28/2017. Unchanged cervicothoracic spine increase activity, probably related to prior anterior fusion changes. CT scan of pelvis done on 07/24/2018 showed no pelvic lymphadenopathy, a small soft tissue nodule measuring 10 mm inseparable from the right iliac vein, has been present since 01/17/2017 Venous Doppler study right leg shows no DVT CT scan of abdomen pelvis done on 2018 showed incidental left renal cyst without change Prior appendicectomy Stable right-sided pericaval lymph node. Variable appearance of blastic metastatic lesion right sacral luis and right side of S1 vertebral body bone scan done on 11/03/2018 showed increased uptake in right sacrum stable T4 lesion, and resolution of left costochondral lesions Status post radiation therapy to right sacroiliac area Follow-up bone scan done on 10/29/2019 shows no evidence of disease progression, no new area of metastatic disease Stable to slightly improved metastatic lesion involving the right posterior sacrum Additional stable to improve lesion involving the right T4 vertebral body and posterior fourth rib. Follow-up CT PET scan done on 11/10/2019 showed FDG negative, densely sclerotic osseous metastatic disease, consistent with sterilize malignancy. FDG positive lymph nodes in the right common iliac and mediastinal territories consistent with recurrent active malignancy. MRI scan of thoracic spine done on 11/07/2019 showed blastic well circumcised metastatic lesion involving T1 and T5 vertebral bodies likely previous treated, no significant edema or enhancement. No other visualized metastatic lesion. Mild chronic compression superior endplate T4 with incidental hemangioma Mr Aragon was referred to pulmonology for evaluation of mediastinal lymphadenopathy. He underwent bronchoscopy on 12/07/2019 right middle lobe. Endobronchial biopsy showed benign respiratory mucosa and cartilage. No malignancy identified. His PSA has continued to elevate and had recommended changing him to enzalutamide 160 mg p.o. daily and discontinue the Zytiga/prednisone. He will continue with the Xgeva and Lupron.Xtandi was put on hold on April 14, 2020 because of diarrhea Plan: Discussed with patient regarding his labs white blood count 8.4 hemoglobin 12.1 hematocrit 36.8 platelets 237,000 CMP within normal limits, PSA from 68.44 compared to 46.62 on October 28, 2020 Clinically, patient is doing well, no new signs symptoms suggestive of disease progression although follow-up labs shows PSA has gone up, we will proceed with cycle #2 with modified dose Taxotere With Neulasta support to prevent chemotherapy-induced neutropenia along with Lupron and Xgeva then he will return to clinic in 2 weeks with CBC CMP and a PSA Signed By: Sae Davies M.D. <<Signature on File>>
[2020-11-17] MEDS: denosumab 120 mg SDV SUBCUT (12:13)
[2020-11-17] MEDS: leuprolide 22.5 mg Kit IM (12:15)
== END 2020-11-17 05:28 | disposition home or self-care (01) ==
LOC: ONCMED 05:29
PROVIDERS: PCP Internal Medicine; Visit Provider Internal Medicine Hematology & Oncology
DX: Z51.11 Encounter for antineoplastic chemotherapy (principal); C61 Malignant neoplasm of prostate; C77.5 Secondary and unspecified malignant neoplasm of intrapelvic lymph nodes; C79.51 Secondary malignant neoplasm of bone; R97.20 Elevated prostate specific antigen [PSA]; Z79.899 Other long term (current) drug therapy; Z79.890 Hormone replacement therapy
CPT/HCPCS: 80053; 84153; 85025; 96367; 96372; 96375; 96402; 96413; 99214; J0897; J1100; J1200; J2469; J3490; J7050; J9171; J9217

== ENCOUNTER 2020-12-01 05:47 | Outpatient (CLI) | payer MEDICARE, BC, SELFPAY ==
[2020-12-01 08:54] LABS: Basophils % 1.3 %; Eosinophils # 0.1 10^3/uL (0.0-0.8); Hematocrit 35.7 % (42.0-52.0); Hemoglobin 11.3 g/dL (11.7-16.6); Lymphocytes # 0.8 10^3/uL (0.8-4.8); Lymphocytes % 26.3 %; Mean Corpuscular HGB Conc 31.7 g/dL (30.0-36.0); Mean Corpuscular Hemoglobin 30.3 pg (28.0-34.0); Mean Corpuscular Volume 95.7 fL (80-94); Mean Platelet Volume 9.2 fL (7.4-10.4); Monocytes # 0.8 10^3/uL (0.2-0.9); Monocytes % 28.3 %; Neutrophils # 1.15 10^3/uL (1.8-7.7); Neutrophils % 38.7 %; Nucleated Red Blood Cells % 0 %; Platelet Count 244 10^3/cmm (130-400); Red Blood Count 3.73 10^6/uL (4.1-5.3); Red Cell Distribution Width 12.7 % (12.1-15.1)
[2020-12-01 09:23] LABS: Prostate Specific Antigen Scr 77.01 ng/mL (0-4)
[2020-12-01 09:31] LABS: Anion Gap 11.4 (5-19); Blood Urea Nitrogen 12 mg/dL (8-23); Calcium 7.9 mg/dL (8.5-10.5); Carbon Dioxide 23 mmol/L (22-29); Chloride 103 mmol/L (98-107); Potassium 3.4 mmol/L (3.5-5.1); Sodium 134 mmol/L (136-145); Total Bilirubin 0.3 mg/dL (0.15-1.2); Total Protein 6.2 g/dL (6.6-8.7)
[2020-12-01 09:55] LABS: Alanine Aminotransferase 8 U/L (0-41); Albumin Level 3.3 g/dL (3.5-5.2); Alkaline Phosphatase 57 IU/L (40-130); Aspartate Amino Transferase 13 U/L (0-40); Globulin 2.9 g/dL (1.3-4.6); Glucose 92 mg/dL (65-115); Osmolality Calculated 277 mOsm/kg (285-295)
--- NOTE | 2020-12-01 17:03 | ONC FU_ITS ---
Dr. Davies follow up note Patient: Oli Aragon Unit #: [id number]: 1935 Dicatated By: Sae Davies M.D.Date of Visit:Dec 01, 2020 Onc Med Follow-up/Prog Note History of Present Illness: Mr. Aragon is an 84-year-old gentleman with history of prostate cancer diagnosed with LUZMARIA in June 2009, with his PSA was 16.8 In July 2009, he underwent biopsy of prosate gland. The final report came back Stephanie score 9 (4+5) and Ozone's 8 (4+4) CT scan of pelvis in showed right obturator lymph nodes. He was started on chemotherapy/biotherapy/hormonal therapy Lupron. In February 2010, followup study showed partial remission and no evidence of disease on scans. from April 2010 to May 2010, he received radiation therapy to a total of 7800 cGy to prostate and pelvic lymph nodes 4500 cGy. From January 2013 to January 2014, he was treated with Casodex with a PSA response. In January 2016 he was noted to have disease progression lymph node size was increasing on scan and PSA gone up to 12.8 On 08/04/2016 plan was to started Zytiga/prednisone , PSA 13.1. On 08/30/2016 PSA was 25.3. His last dose of Lupron was in January 2017. Initially it was given every 3 months and was changed to every 6 months with followup at [facility]. Zytiga was under consideration but because of cost it was not started as per oncology note from [facility] on 01/17/2017. CT scan of abdomen pelvis done at [facility] on 01/17/2017 showed increasing retroperitoneal and right pelvic lymphadenopathy. A bone scan done on 01/17/2017 showed new foci of uptake involving the sacrum are suspicious for skeletal metastases and new focal uptake at the anterior lateral aspect of the right fourth rib. Which is nonspecific for metastatic versus intraoral trauma. Incidental small right upper lobe pulmonary nodule is nonspecific follow-up suggested. In October 2018 Zytiga was obtained for Mr. Cortes. Mr Aragon was tolerating ADT wit lupron and Zytiga/prednisone well. Follow-up CT PET scan done on 11/10/2019 showed FDG negative, densely sclerotic osseous metastatic disease, consistent with sterilize malignancy. FDG positive lymph nodes in the right common iliac and mediastinal territories consistent with recurrent active malignancy. MRI scan of thoracic spine done on 11/07/2019 showed blastic well circumcised metastatic lesion involving T1 and T5 vertebral bodies likely previous treated, no significant edema or enhancement. No other visualized metastatic lesion. Mild chronic compression superior endplate T4 with incidental hemangioma Mr Aragon was referred to pulmonology for evaluation of mediastinal lymphadenopathy. He underwent bronchoscopy on 12/07/2019 right middle lobe. Endobronchial biopsy showed benign respiratory mucosa and cartilage. No malignancy identified. His PSA has continued to elevate and had recommended changing him to enzalutamide 160 mg p.o. daily and discontinue the Zytiga/prednisone. He will continue with the Xgeva and Lupron. started Xtandi On February 09, 2020 While waiting for repeat bronchoscopy, follow-up CT scan of chest was done on March 05, 2020 which showed stable previously described FDG avid normal and slightly prominent lymph nodes right hilum, left AP window and subcarinal hilar lymph nodes are stable. Subcarinal lymph node is slightly enlarged measuring 11 mm unchanged from previous scan done on November 10, 2019. No evidence of progressive lymphadenopathy. Mild chronic emphysematous changes seen. No acute pulmonary infiltrates. Noncalcified fibrotic appearing nodule right upper lobe measuring 4 mm. Sclerotic FDG negative lesions consistent with treated osseous metastatic disease more prominent at T1, T5 and right fifth rib. Due to persistent severe diarrhea, Xtandi was put on hold on April 14, 2020,Restarted on July 31, 2020 but with low-dose e.g. 80 mg p.o. daily Which was discontinued on August 29, 2020 because of persistent abdominal pain, diarrhea Started on systemic therapy with Taxotere on October 28, 2020 Along with 3 monthly Lupron and Xgeva Came for follow-up, denies any specific complaints, no fever chills, no nausea or vomiting, no diarrhea or constipation, no new bony pains, tolerating palliative chemotherapy with docetaxel well along with Lupron and Xgeva. Medications: Ambien 1 Tablet (of 5 mg) Oral at bedtime, Lomotil Tablet Oral PRN, Mirtazapine 1 Tablet (of 15 mg) Oral at bedtime PRN, Ondansetron HCl 1 Tablet (of 4 mg) Oral q 6 hours PRN, Tums 1 (500 mg) Tablet, chewable Oral PRN Allergies: No Known Allergies. Review of Systems: Review of Systems is not available for this patient. Vital Signs: Performed on Dec 01, 2020 10:09 Height - 76.00 in Weight - 176.2 lbs (LOW) BSA - 2.10 sq.m BMI - 21.45 Temperature - 97.9 F (LOW) Pulse - 71 /min Respiration - 18 /min BP - 121/79 mm(hg) O2 Sat - 99 % Pain - 0 Performance Status: 1 - No physically strenuous activity, but ambulatory and able to carry out light or sedentary work (e.g. office work, light house work). (ECOG) Physical Examination: ENMT - No mouth sores, no thrush, no jaundice, Respiratory - Lungs are clear to auscultation, Cardiovascular - Regular rate and rhythm of heart, Abdomen - Bowel sounds present, Soft, nontender, Extremities - No visible edema. Lab/Imaging: Test performed on Nov 12, 2020 12:15 Sodium 136 mmol/L Potassium 3.8 mmol/L Chloride 105 mmol/L CO2 24 mmol/L Anion Gap 10.8 BUN 15 mg/dL Creatinine 0.6 mg/dL Cr Clearance (Est) 107.6100 mL/min Glucose 111 mg/dL Osmolality - Calculated 284 mOsm/kg Calcium 8.4 mg/dL Protein, Total 6.1 g/dL Albumin 3.6 g/dL Globulin 2.5 g/dL Bilirubin, Total 0.2 mg/dL ALT (SGPT) 11 U/L AST (SGOT) 15 U/L Alkaline Phosphatase 55 IU/L WBC 3.7 10 3/uL RBC 3.70 10 6/uL HGB 11.5 g/dL HCT 36.1 % MCV 97.6 fL MCH 31.1 pg MCHC 31.9 g/dL RDW 12.8 % Platelet Count 243 10 3/cmm MPV 9.1 fL Neutrophils 1.74 10 3/uL Lymphocytes 1.2 10 3/uL Monocytes 0.6 10 3/uL Eosinophils 0.0 10 3/uL Basophils 0.0 10 3/uL Neutrophil % 47.3 % Lymphocyte % 32.3 % Monocyte % 15.8 % Eosinophil % 0.8 % Basophils % 1.1 % NRBC % 0 % Test performed on Oct 28, 2020 09:16 PSA 46.620 ng/mL Test performed on Aug 29, 2020 08:25 Magnesium 1.8 mg/dL Test performed on Jul 31, 2020 12:00 Testosterone, Total < 2.5 ng/dL Impression: Adenocarcinoma of prostate,Initially diagnosed in July 2009, status post radiation. Prostate and pelvic lymph nodesin April 2010, now with recurrent with pelvic/retroperitoneal lymphadenopathy and abnormal bone scan. On Lupron at [facility] Bone scan done on 05/11/2017 showed no evidence of bony metastatic disease Rising PSA while on Lupron Started on zytiga 1000mg po qd and prednisone 5 mg twice a day on 06/08/2017 in his PSA on June 06/2017 was 134 Fatigue probably multifactorial including hormone withdrawal recent History of fall from the tree, with injury to tailbone and right ribs Bone scan done on 07/20/2017 at [facility] showed 2 new lesions, one in the region of T2 and on in the pelvis likely skeletal metastasis. Multiple ribs lesions probably due to trauma Chest x-ray done on 09/26/2017 showed normal visualized bone structures. No acute changes bone scan done on 09/28/2007 showed metastatic bone disease is stable with no progression or improvement since 07/20/2017 CT scan of abdomen pelvis done on 07/20/2017 at [facility] showed retroperitoneal lymphadenopathy is stable or slightly smaller soft tissue nodule in the Florence's pouch is unchanged New sclerotic lesion in the right anterior sacrum at S1 -S 3 may represent new focus of bone metastases Bone scan done on 07/24/2018 showed no new focus of increased activity, overall decreased activity of previously noted metastatic/posttraumatic changes since 09/28/2017. Unchanged cervicothoracic spine increase activity, probably related to prior anterior fusion changes. CT scan of pelvis done on 07/24/2018 showed no pelvic lymphadenopathy, a small soft tissue nodule measuring 10 mm inseparable from the right iliac vein, has been present since 01/17/2017 Venous Doppler study right leg shows no DVT CT scan of abdomen pelvis done on 2018 showed incidental left renal cyst without change Prior appendicectomy Stable right-sided pericaval lymph node. Variable appearance of blastic metastatic lesion right sacral luis and right side of S1 vertebral body bone scan done on 11/03/2018 showed increased uptake in right sacrum stable T4 lesion, and resolution of left costochondral lesions Status post radiation therapy to right sacroiliac area Follow-up bone scan done on 10/29/2019 shows no evidence of disease progression, no new area of metastatic disease Stable to slightly improved metastatic lesion involving the right posterior sacrum Additional stable to improve lesion involving the right T4 vertebral body and posterior fourth rib. Follow-up CT PET scan done on 11/10/2019 showed FDG negative, densely sclerotic osseous metastatic disease, consistent with sterilize malignancy. FDG positive lymph nodes in the right common iliac and mediastinal territories consistent with recurrent active malignancy. MRI scan of thoracic spine done on 11/07/2019 showed blastic well circumcised metastatic lesion involving T1 and T5 vertebral bodies likely previous treated, no significant edema or enhancement. No other visualized metastatic lesion. Mild chronic compression superior endplate T4 with incidental hemangioma Mr Aragon was referred to pulmonology for evaluation of mediastinal lymphadenopathy. He underwent bronchoscopy on 12/07/2019 right middle lobe. Endobronchial biopsy showed benign respiratory mucosa and cartilage. No malignancy identified. His PSA has continued to elevate and had recommended changing him to enzalutamide 160 mg p.o. daily and discontinue the Zytiga/prednisone. He will continue with the Xgeva and Lupron.Xtandi was put on hold on April 14, 2020 because of diarrhea Plan: Discussed with patient regarding his labs white blood count 3 hemoglobin 11.3 hematocrit 35.7 platelets 244,000 ANC 1150 CMP within normal limit except potassium 3.4 and a PSA continue to go up now 77.01 compared to 68.44 on November 17, 2020 and 46.62 on October 28, 2020 Clinically, patient doing well, with no new signs symptoms tolerating palliative chemotherapy with docetaxel well along with Lupron and Xgeva, but with expected side effect now with progressive leukopenia/neutropenia and mild anemia, we will hold his chemotherapy with docetaxel moreover there is a concern about his PSA which is gradually going up despite of docetaxel and he is also on Lupron/Xgeva, at this point we will consider CT scan of chest abdomen pelvis and bone scan if there is evidence of disease progression, then will consider discontinuing docetaxel and consider other treatment options we will also check his guardant 360 to identify targetable mutations. Patient return to clinic in 2 weeks with CBC CMP PSA and CT scan of chest abdomen pelvis and bone scan and Guardant 360 report Signed By: Sae Davies M.D. <<Signature on File>>
== END 2020-12-01 05:48 | disposition home or self-care (01) ==
LOC: ONCMED 05:51
PROVIDERS: PCP Internal Medicine; Visit Provider Internal Medicine Hematology & Oncology
DX: C61 Malignant neoplasm of prostate (principal); C79.51 Secondary malignant neoplasm of bone; C77.5 Secondary and unspecified malignant neoplasm of intrapelvic lymph nodes; D70.1 Agranulocytosis secondary to cancer chemotherapy; D64.81 Anemia due to antineoplastic chemotherapy; T45.1X5A Adverse effect of antineoplastic and immunosuppressive drugs, initial encounter; Z79.899 Other long term (current) drug therapy; Z79.818 Long term (current) use of other agents affecting estrogen receptors and estrogen levels
CPT/HCPCS: 36591; 80053; 85025; 99215; G0103

== ENCOUNTER 2020-12-11 07:54 | Outpatient (CLI) | payer MEDICARE, BC, SELFPAY ==
--- NOTE | 2020-12-11 08:13 | CT_ITS ---
WS: [id number] CT CHEST, ABDOMEN AND PELVIS WITH CONTRAST. HISTORY: PROSTATE CANCER TECHNIQUE: Contiguous 5 mm axial imaging performed through the chest, abdomen and pelvis with IV cont rast, oral contrast has been provided. Coronal and sagittal reformats chest. Coronal and sagittal ref ormats through the abdomen and pelvis. All CT scans at [facility] use at least one of the se dose optimization techniques: automated exposure control; mA and/or kV adjustment per patient size (includes targeted exams where dose is matched to clinical indication); or iterative reconstruction. CONTRAST: Omnipaque 300; 95 mL IV. DLP: 1222.82 mGy.cm COMPARISON: 07/30/2020 and 04/23/[address]: No change in the 3 mm subsolid nodule in the RIGHT upper lobe. No new noncalcified nodules. Subsegmental linear atelectasis at the lung bases. No effusion. Mild ectasia and atherosclerosis of the thoracic aorta. Pulmonary artery size is normal. Small benign mediastinal lymph nodes measuring u p to 10 mm in short axis diameter. No significant adenopathy. T1 sclerotic focus is stable. Stable sclerotic focus and T5. Increasing sclerotic focus in the stacker ior T6 vertebrae measures 6 mm. Possible sclerotic focus in the RIGHT lateral T11 vertebral body. Sta ble RIGHT anterior fifth rib sclerotic focus. Additional sclerotic foci in the LEFT fifth and seventh ribs. Abdomen CT: Liver, gallbladder, pancreas and adrenal glands are negative. Normal size spleen with gra nulomata. Negative RIGHT kidney. Large cyst associated with the LEFT kidney measures 4.1 x 5.2 cm. Mi ld atherosclerosis and ectasia of aorta. No aneurysm. No ascites. Soft tissue nodule measuring 1.7 cm inseparable from the RIGHT iliac vein as been present since 2017 without significant increase in siz e. Posterior to this proximal iliac chain lymph node is an additional 1.1 cm lymph node which has inc reased in size. There is an additional enlarging lymph node posterior to the RIGHT iliac chain bifurc ation measuring 2.3 x 2.4 cm. No GI tract obstruction. Pelvic CT: No free fluid in the pelvis. No adenopathy. Sclerotic focus in the RIGHT sacrum unchanged. Several new sclerotic foci within the RIGHT ilium. CT/CT chest abd pel w con* IMPRESSION: 1. Suspicious for progression of metastatic bone disease since the prior study . New lesions in this thoracic spine, ribs and RIGHT ilium. 2. Increasing lymph nodes along the RIGHT iliac chain. 3. No pulmonary nodules. 4. No increase in size of the indeterminate bilateral hilar lymph nodes.
--- NOTE | 2020-12-11 08:13 | NM_ITS ---
WS: [id number] NUCLEAR MEDICINE WHOLE BODY BONE SCAN HISTORY: PROSTATE CANCER COMPARISON: 10/29/2019 TECHNIQUE: The patient was injected with 24.2 mCi of Technetium 99m HDP and serial whole-body scintig kiana have been performed with anterior and posterior images. There are new and stable metastatic sites throughout the thoracic spine. Increased uptake at T1, T5 a nd T6. There is more uptake within the T1 lesion and new uptake at T6. Additional focal uptake betwee n the L2 and L3 vertebral bodies suspicious for an additional metastatic focus. Increasing uptake in the RIGHT sacral lesion and new uptake in the RIGHT ilium. Additional focal upta ke within the inferior RIGHT scapula. Believe this is probably a rib lesion and not a scapular lesion . There is a focal area of increased uptake within the fifth posterior RIGHT sixth rib. Normal soft tissue uptake. Both kidneys are identified. IL/IL bone scan whole body* [id number] IMPRESSION: 1. Mild progression of metastatic bone disease since 10/29/2019. Newly lesions in the thoracic spine, RIGHT ilium and posterior RIGHT fifth rib versus scapula . On the recent CT no sclerotic focus in the RIGHT scapula. 2. Increased uptake within the T1 vertebral body lesion and the RIGHT sacral l esion described on the prior studies.
[2020-12-11] MEDS: iohexol 300 mg/mL 50 mL Btl IV (08:28)
[2020-12-11 08:56] LABS: Blood Urea Nitrogen 18 mg/dL (8-23)
[2020-12-11] MEDS: iohexol 300 mg/mL 100 mL Btl IV (10:04)
== END 2020-12-11 07:55 | disposition home or self-care (01) ==
LOC: RAD 08:09
PROVIDERS: PCP Internal Medicine; Visit Provider Internal Medicine Hematology & Oncology
DX: C61 Malignant neoplasm of prostate (principal); C79.51 Secondary malignant neoplasm of bone; C77.5 Secondary and unspecified malignant neoplasm of intrapelvic lymph nodes
CPT/HCPCS: 36415; 71260; 74177; 78306; 82565; 84520; A9561

== ENCOUNTER 2020-12-17 05:47 | Outpatient (CLI) | payer MEDICARE, BC, SELFPAY ==
[2020-12-17 09:18] LABS: Basophils # 0.1 10^3/uL (0.0-0.1); Basophils % 1.4 %; Eosinophils # 0.3 10^3/uL (0.0-0.8); Eosinophils % 6.9 %; Hematocrit 36.7 % (42.0-52.0); Hemoglobin 11.5 g/dL (11.7-16.6); Lymphocytes % 24.8 %; Mean Corpuscular HGB Conc 31.3 g/dL (30.0-36.0); Mean Corpuscular Hemoglobin 30.6 pg (28.0-34.0); Mean Corpuscular Volume 97.6 fL (80-94); Mean Platelet Volume 9.4 fL (7.4-10.4); Monocytes # 0.5 10^3/uL (0.2-0.9); Monocytes % 12.4 %; Neutrophils # 2.27 10^3/uL (1.8-7.7); Neutrophils % 54.3 %; Nucleated Red Blood Cells % 0 %; Platelet Count 224 10^3/cmm (130-400); Red Blood Count 3.76 10^6/uL (4.1-5.3); Red Cell Distribution Width 13.6 % (12.1-15.1); White Blood Count 4.2 10^3/uL (4.0-10.0)
[2020-12-17 10:03] LABS: Alanine Aminotransferase 8 U/L (0-41); Albumin Level 3.5 g/dL (3.5-5.2); Alkaline Phosphatase 64 IU/L (40-130); Aspartate Amino Transferase 13 U/L (0-40); Blood Urea Nitrogen 18 mg/dL (8-23); Calcium 8.1 mg/dL (8.5-10.5); Carbon Dioxide 25 mmol/L (22-29); Chloride 105 mmol/L (98-107); Globulin 2.5 g/dL (1.3-4.6); Glucose 91 mg/dL (65-115); Osmolality Calculated 285 mOsm/kg (285-295); Sodium 137 mmol/L (136-145); Total Bilirubin 0.4 mg/dL (0.15-1.2)
--- NOTE | 2020-12-17 16:36 | ONC FU_ITS ---
Dr. Davies follow up note Patient: Oli Aragon Unit #: [id number]: 1935 Dicatated By: Sae Davies M.D.Date of Visit:Dec 17, 2020 Onc Med Follow-up/Prog Note History of Present Illness: Mr. Aragon is an 84-year-old gentleman with history of prostate cancer diagnosed with LUZMARIA in June 2009, with his PSA was 16.8 In July 2009, he underwent biopsy of prosate gland. The final report came back Stephanie score 9 (4+5) and Ophiem's 8 (4+4) CT scan of pelvis in showed right obturator lymph nodes. He was started on chemotherapy/biotherapy/hormonal therapy Lupron. In February 2010, followup study showed partial remission and no evidence of disease on scans. from April 2010 to May 2010, he received radiation therapy to a total of 7800 cGy to prostate and pelvic lymph nodes 4500 cGy. From January 2013 to January 2014, he was treated with Casodex with a PSA response. In January 2016 he was noted to have disease progression lymph node size was increasing on scan and PSA gone up to 12.8 On 08/04/2016 plan was to started Zytiga/prednisone , PSA 13.1. On 08/30/2016 PSA was 25.3. His last dose of Lupron was in January 2017. Initially it was given every 3 months and was changed to every 6 months with followup at [facility]. Zytiga was under consideration but because of cost it was not started as per oncology note from [facility] on 01/17/2017. CT scan of abdomen pelvis done at [facility] on 01/17/2017 showed increasing retroperitoneal and right pelvic lymphadenopathy. A bone scan done on 01/17/2017 showed new foci of uptake involving the sacrum are suspicious for skeletal metastases and new focal uptake at the anterior lateral aspect of the right fourth rib. Which is nonspecific for metastatic versus intraoral trauma. Incidental small right upper lobe pulmonary nodule is nonspecific follow-up suggested. In October 2018 Zytiga was obtained for Mr. Cortes. Mr Aragon was tolerating ADT wit lupron and Zytiga/prednisone well. Follow-up CT PET scan done on 11/10/2019 showed FDG negative, densely sclerotic osseous metastatic disease, consistent with sterilize malignancy. FDG positive lymph nodes in the right common iliac and mediastinal territories consistent with recurrent active malignancy. MRI scan of thoracic spine done on 11/07/2019 showed blastic well circumcised metastatic lesion involving T1 and T5 vertebral bodies likely previous treated, no significant edema or enhancement. No other visualized metastatic lesion. Mild chronic compression superior endplate T4 with incidental hemangioma Mr Aragon was referred to pulmonology for evaluation of mediastinal lymphadenopathy. He underwent bronchoscopy on 12/07/2019 right middle lobe. Endobronchial biopsy showed benign respiratory mucosa and cartilage. No malignancy identified. His PSA has continued to elevate and had recommended changing him to enzalutamide 160 mg p.o. daily and discontinue the Zytiga/prednisone. He will continue with the Xgeva and Lupron. started Xtandi On February 09, 2020 While waiting for repeat bronchoscopy, follow-up CT scan of chest was done on March 05, 2020 which showed stable previously described FDG avid normal and slightly prominent lymph nodes right hilum, left AP window and subcarinal hilar lymph nodes are stable. Subcarinal lymph node is slightly enlarged measuring 11 mm unchanged from previous scan done on November 10, 2019. No evidence of progressive lymphadenopathy. Mild chronic emphysematous changes seen. No acute pulmonary infiltrates. Noncalcified fibrotic appearing nodule right upper lobe measuring 4 mm. Sclerotic FDG negative lesions consistent with treated osseous metastatic disease more prominent at T1, T5 and right fifth rib. Due to persistent severe diarrhea, Xtandi was put on hold on April 14, 2020,Restarted on July 31, 2020 but with low-dose e.g. 80 mg p.o. daily Which was discontinued on August 29, 2020 because of persistent abdominal pain, diarrhea Started on systemic therapy with Taxotere on October 28, 2020 Along with 3 monthly Lupron and Xgeva While on Taxotere, patient's PSA continue to increase, On December 01, 2020 his PSA was 77.01 compared to 68.44 on November 17 and 46.62 on October 28, 2020, thus follow-up CT scan of chest abdomen pelvis was done on December 11, 2020 which shows suspicious for progression of metastatic bone disease, new lesion in his thoracic spine, ribs and right ilium. And increasing lymph nodes along the right iliac chain measuring about 2.3 x 2.4 cm. No pulmonary nodules, no increase in size of indeterminate bilateral hilar lymph nodes Bone scan done on December 11, 2020 shows mild progression of metastatic bone disease since October 2019, now new lesions in the thoracic vertebrae right ilium and posterior right fifth rib versus scapula. Came for follow-up, denies any specific complaints except mild discomfort in the right hip but under control with current pain medication, no fever chills, no nausea or vomiting, no dysuria or hematuria, no diarrhea or constipation, no hemoptysis or hematemesis Medications: Ambien 1 Tablet (of 5 mg) Oral at bedtime, Lomotil Tablet Oral PRN, Mirtazapine 1 Tablet (of 15 mg) Oral at bedtime PRN, Ondansetron HCl 1 Tablet (of 4 mg) Oral q 6 hours PRN, Tums 1 (500 mg) Tablet, chewable Oral PRN Allergies: No Known Allergies. Review of Systems: Review of Systems is not available for this patient. Vital Signs: Performed on Dec 17, 2020 10:04 Height - 76.00 in Weight - 175.4 lbs (LOW) BSA - 2.10 sq.m BMI - 21.35 Temperature - 97.8 F (LOW) Pulse - 58 /min (LOW) Respiration - 18 /min BP - 126/77 mm(hg) O2 Sat - 96 % Pain - 0 Performance Status: 1 - No physically strenuous activity, but ambulatory and able to carry out light or sedentary work (e.g. office work, light house work). (ECOG) Physical Examination: ENMT - No mouth sores, no thrush, no jaundice, Respiratory - Lungs are clear to auscultation, Cardiovascular - Regular rate and rhythm of heart, Abdomen - Soft, bowel sounds present, Extremities - No visible edema. Lab/Imaging: Test performed on Nov 12, 2020 12:15 Sodium 136 mmol/L Potassium 3.8 mmol/L Chloride 105 mmol/L CO2 24 mmol/L Anion Gap 10.8 BUN 15 mg/dL Creatinine 0.6 mg/dL Cr Clearance (Est) 107.6100 mL/min Glucose 111 mg/dL Osmolality - Calculated 284 mOsm/kg Calcium 8.4 mg/dL Protein, Total 6.1 g/dL Albumin 3.6 g/dL Globulin 2.5 g/dL Bilirubin, Total 0.2 mg/dL ALT (SGPT) 11 U/L AST (SGOT) 15 U/L Alkaline Phosphatase 55 IU/L WBC 3.7 10 3/uL RBC 3.70 10 6/uL HGB 11.5 g/dL HCT 36.1 % MCV 97.6 fL MCH 31.1 pg MCHC 31.9 g/dL RDW 12.8 % Platelet Count 243 10 3/cmm MPV 9.1 fL Neutrophils 1.74 10 3/uL Lymphocytes 1.2 10 3/uL Monocytes 0.6 10 3/uL Eosinophils 0.0 10 3/uL Basophils 0.0 10 3/uL Neutrophil % 47.3 % Lymphocyte % 32.3 % Monocyte % 15.8 % Eosinophil % 0.8 % Basophils % 1.1 % NRBC % 0 % Test performed on Oct 28, 2020 09:16 PSA 46.620 ng/mL Test performed on Aug 29, 2020 08:25 Magnesium 1.8 mg/dL Test performed on Jul 31, 2020 12:00 Testosterone, Total < 2.5 ng/dL Impression: Adenocarcinoma of prostate,Initially diagnosed in July 2009, status post radiation. Prostate and pelvic lymph nodesin April 2010, now with recurrent with pelvic/retroperitoneal lymphadenopathy and abnormal bone scan. On Lupron at [facility] Bone scan done on 05/11/2017 showed no evidence of bony metastatic disease Rising PSA while on Lupron Started on zytiga 1000mg po qd and prednisone 5 mg twice a day on 06/08/2017 in his PSA on June 06/2017 was 134 Fatigue probably multifactorial including hormone withdrawal recent History of fall from the tree, with injury to tailbone and right ribs Bone scan done on 07/20/2017 at [facility] showed 2 new lesions, one in the region of T2 and on in the pelvis likely skeletal metastasis. Multiple ribs lesions probably due to trauma Chest x-ray done on 09/26/2017 showed normal visualized bone structures. No acute changes bone scan done on 09/28/2007 showed metastatic bone disease is stable with no progression or improvement since 07/20/2017 CT scan of abdomen pelvis done on 07/20/2017 at [facility] showed retroperitoneal lymphadenopathy is stable or slightly smaller soft tissue nodule in the Florence's pouch is unchanged New sclerotic lesion in the right anterior sacrum at S1 -S 3 may represent new focus of bone metastases Bone scan done on 07/24/2018 showed no new focus of increased activity, overall decreased activity of previously noted metastatic/posttraumatic changes since 09/28/2017. Unchanged cervicothoracic spine increase activity, probably related to prior anterior fusion changes. CT scan of pelvis done on 07/24/2018 showed no pelvic lymphadenopathy, a small soft tissue nodule measuring 10 mm inseparable from the right iliac vein, has been present since 01/17/2017 Venous Doppler study right leg shows no DVT CT scan of abdomen pelvis done on 2018 showed incidental left renal cyst without change Prior appendicectomy Stable right-sided pericaval lymph node. Variable appearance of blastic metastatic lesion right sacral luis and right side of S1 vertebral body bone scan done on 11/03/2018 showed increased uptake in right sacrum stable T4 lesion, and resolution of left costochondral lesions Status post radiation therapy to right sacroiliac area Follow-up bone scan done on 10/29/2019 shows no evidence of disease progression, no new area of metastatic disease Stable to slightly improved metastatic lesion involving the right posterior sacrum Additional stable to improve lesion involving the right T4 vertebral body and posterior fourth rib. Follow-up CT PET scan done on 11/10/2019 showed FDG negative, densely sclerotic osseous metastatic disease, consistent with sterilize malignancy. FDG positive lymph nodes in the right common iliac and mediastinal territories consistent with recurrent active malignancy. MRI scan of thoracic spine done on 11/07/2019 showed blastic well circumcised metastatic lesion involving T1 and T5 vertebral bodies likely previous treated, no significant edema or enhancement. No other visualized metastatic lesion. Mild chronic compression superior endplate T4 with incidental hemangioma Mr Aragon was referred to pulmonology for evaluation of mediastinal lymphadenopathy. He underwent bronchoscopy on 12/07/2019 right middle lobe. Endobronchial biopsy showed benign respiratory mucosa and cartilage. No malignancy identified. His PSA has continued to elevate and had recommended changing him to enzalutamide 160 mg p.o. daily and discontinue the Zytiga/prednisone. He will continue with the Xgeva and Lupron.Xtandi was put on hold on April 14, 2020 because of diarrhea Plan: Discussed with patient regarding his labs white blood count 4.2 hemoglobin 11.5 hematocrit 36.7 platelets 224,000 PSA 84.98 compared to 77.01 on December 01, 2020 and bone scan and follow-up CT scan of chest abdomen pelvis findings which shows disease progression Clinically, patient doing reasonably well with no new signs symptom but his follow-up lab work-up showed progressive PSA thus CT scan of chest abdomen pelvis was done which shows disease progression as well as bone scan,, patient was supposed to get guardant 360 testing done to identify targetable therapeutic mutations but it was not done earlier so blood was drawn today and sent out for testing and report should be available within 2 weeks. Patient return to clinic in 2 weeks and if it shows any targetable therapeutic mutation then will consider treatment based on that on the other hand if it is inconclusive and then will consider cabazitaxel 20 mg per metered squared every 3 weeks along with steroids. Return to clinic in 2 weeks for further discussion and planning Signed By: Sae Davies M.D. <<Signature on File>>
== END 2020-12-17 05:48 | disposition home or self-care (01) ==
LOC: ONCMED 05:53
PROVIDERS: PCP Internal Medicine; Visit Provider Internal Medicine Hematology & Oncology
DX: C61 Malignant neoplasm of prostate (principal); C79.51 Secondary malignant neoplasm of bone; R97.21 Rising PSA following treatment for malignant neoplasm of prostate; Z79.899 Other long term (current) drug therapy
CPT/HCPCS: 36591; 80053; 84153; 85025; 99215

== ENCOUNTER 2021-01-06 08:01 | Outpatient (CLI) | payer MEDICARE, BC, SELFPAY ==
--- NOTE | 2021-01-07 17:16 | ONC FU_ITS ---
Dr. Davies follow up note Patient: Oli Aragon Unit #: [id number]: 1935 Dicatated By: Sae Davies M.D.Date of Visit:Jan 06, 2021 Onc Med Follow-up/Prog Note History of Present Illness: Mr. Aragon is an 85-year-old gentleman with history of prostate cancer diagnosed with LUZMARIA in June 2009, with his PSA was 16.8 In July 2009, he underwent biopsy of prosate gland. The final report came back Stephanie score 9 (4+5) and [place]'s 8 (4+4) CT scan of pelvis in showed right obturator lymph nodes. He was started on chemotherapy/biotherapy/hormonal therapy Lupron. In February 2010, followup study showed partial remission and no evidence of disease on scans. from April 2010 to May 2010, he received radiation therapy to a total of 7800 cGy to prostate and pelvic lymph nodes 4500 cGy. From January 2013 to January 2014, he was treated with Casodex with a PSA response. In January 2016 he was noted to have disease progression lymph node size was increasing on scan and PSA gone up to 12.8 On 08/04/2016 plan was to started Zytiga/prednisone , PSA 13.1. On 08/30/2016 PSA was 25.3. His last dose of Lupron was in January 2017. Initially it was given every 3 months and was changed to every 6 months with followup at [facility]. Zytiga was under consideration but because of cost it was not started as per oncology note from [facility] on 01/17/2017. CT scan of abdomen pelvis done at [facility] on 01/17/2017 showed increasing retroperitoneal and right pelvic lymphadenopathy. A bone scan done on 01/17/2017 showed new foci of uptake involving the sacrum are suspicious for skeletal metastases and new focal uptake at the anterior lateral aspect of the right fourth rib. Which is nonspecific for metastatic versus intraoral trauma. Incidental small right upper lobe pulmonary nodule is nonspecific follow-up suggested. In October 2018 Zytiga was obtained for Mr. Cortes. Mr Aragon was tolerating ADT wit lupron and Zytiga/prednisone well. Follow-up CT PET scan done on 11/10/2019 showed FDG negative, densely sclerotic osseous metastatic disease, consistent with sterilize malignancy. FDG positive lymph nodes in the right common iliac and mediastinal territories consistent with recurrent active malignancy. MRI scan of thoracic spine done on 11/07/2019 showed blastic well circumcised metastatic lesion involving T1 and T5 vertebral bodies likely previous treated, no significant edema or enhancement. No other visualized metastatic lesion. Mild chronic compression superior endplate T4 with incidental hemangioma Mr Aragon was referred to pulmonology for evaluation of mediastinal lymphadenopathy. He underwent bronchoscopy on 12/07/2019 right middle lobe. Endobronchial biopsy showed benign respiratory mucosa and cartilage. No malignancy identified. His PSA has continued to elevate and had recommended changing him to enzalutamide 160 mg p.o. daily and discontinue the Zytiga/prednisone. He will continue with the Xgeva and Lupron. started Xtandi On February 09, 2020 While waiting for repeat bronchoscopy, follow-up CT scan of chest was done on March 05, 2020 which showed stable previously described FDG avid normal and slightly prominent lymph nodes right hilum, left AP window and subcarinal hilar lymph nodes are stable. Subcarinal lymph node is slightly enlarged measuring 11 mm unchanged from previous scan done on November 10, 2019. No evidence of progressive lymphadenopathy. Mild chronic emphysematous changes seen. No acute pulmonary infiltrates. Noncalcified fibrotic appearing nodule right upper lobe measuring 4 mm. Sclerotic FDG negative lesions consistent with treated osseous metastatic disease more prominent at T1, T5 and right fifth rib. Due to persistent severe diarrhea, Xtandi was put on hold on April 14, 2020,Restarted on July 31, 2020 but with low-dose e.g. 80 mg p.o. daily Which was discontinued on August 29, 2020 because of persistent abdominal pain, diarrhea Started on systemic therapy with Taxotere on October 28, 2020 Along with 3 monthly Lupron and Xgeva While on Taxotere, patient's PSA continue to increase, On December 01, 2020 his PSA was 77.01 compared to 68.44 on November 17 and 46.62 on October 28, 2020, thus follow-up CT scan of chest abdomen pelvis was done on December 11, 2020 which shows suspicious for progression of metastatic bone disease, new lesion in his thoracic spine, ribs and right ilium. And increasing lymph nodes along the right iliac chain measuring about 2.3 x 2.4 cm. No pulmonary nodules, no increase in size of indeterminate bilateral hilar lymph nodes Bone scan done on December 11, 2020 shows mild progression of metastatic bone disease since October 2019, now new lesions in the thoracic vertebrae right ilium and posterior right fifth rib versus scapula. Guardant 360 done on December 17, 2020 showed no obvious targetable therapeutic mutations Came for follow-up, complaining of generalized weakness and fatigue and mild sore throat with whitish-yellow cough but no fever chills, but feeling warm, no nausea or vomiting, no diarrhea constipation, no new bony pains Medications: Ambien 1 Tablet (of 5 mg) Oral at bedtime, Lomotil Tablet Oral PRN, Mirtazapine 1 Tablet (of 15 mg) Oral at bedtime PRN, Ondansetron HCl 1 Tablet (of 4 mg) Oral q 6 hours PRN, Tums 1 (500 mg) Tablet, chewable Oral PRN Allergies: No Known Allergies. Review of Systems: Review of Systems is not available for this patient. Vital Signs: Performed on Jan 06, 2021 09:18 Height - 76.00 in Weight - 177.4 lbs (HIGH) BSA - 2.11 sq.m BMI - 21.59 Temperature - 97.4 F (LOW) Pulse - 88 /min Respiration - 18 /min BP - 109/73 mm(hg) O2 Sat - 99 % Pain - 0 Fatigue - 0 Performance Status: 1 - No physically strenuous activity, but ambulatory and able to carry out light or sedentary work (e.g. office work, light house work). (ECOG) Physical Examination: ENMT - No mouth sores, no thrush, no jaundice, Respiratory - Lungs are clear to auscultation, Cardiovascular - Regular rate and rhythm of heart, Abdomen - Soft, Bowel sounds present, Extremities - No visible edema. Lab/Imaging: Test performed on Nov 12, 2020 12:15 Sodium 136 mmol/L Potassium 3.8 mmol/L Chloride 105 mmol/L CO2 24 mmol/L Anion Gap 10.8 BUN 15 mg/dL Creatinine 0.6 mg/dL Cr Clearance (Est) 107.6100 mL/min Glucose 111 mg/dL Osmolality - Calculated 284 mOsm/kg Calcium 8.4 mg/dL Protein, Total 6.1 g/dL Albumin 3.6 g/dL Globulin 2.5 g/dL Bilirubin, Total 0.2 mg/dL ALT (SGPT) 11 U/L AST (SGOT) 15 U/L Alkaline Phosphatase 55 IU/L WBC 3.7 10 3/uL RBC 3.70 10 6/uL HGB 11.5 g/dL HCT 36.1 % MCV 97.6 fL MCH 31.1 pg MCHC 31.9 g/dL RDW 12.8 % Platelet Count 243 10 3/cmm MPV 9.1 fL Neutrophils 1.74 10 3/uL Lymphocytes 1.2 10 3/uL Monocytes 0.6 10 3/uL Eosinophils 0.0 10 3/uL Basophils 0.0 10 3/uL Neutrophil % 47.3 % Lymphocyte % 32.3 % Monocyte % 15.8 % Eosinophil % 0.8 % Basophils % 1.1 % NRBC % 0 % Test performed on Oct 28, 2020 09:16 PSA 46.620 ng/mL Test performed on Aug 29, 2020 08:25 Magnesium 1.8 mg/dL Test performed on Jul 31, 2020 12:00 Testosterone, Total < 2.5 ng/dL Impression: Adenocarcinoma of prostate,Initially diagnosed in July 2009, status post radiation. Prostate and pelvic lymph nodesin April 2010, now with recurrent with pelvic/retroperitoneal lymphadenopathy and abnormal bone scan. On Lupron at [facility] Bone scan done on 05/11/2017 showed no evidence of bony metastatic disease Rising PSA while on Lupron Started on zytiga 1000mg po qd and prednisone 5 mg twice a day on 06/08/2017 in his PSA on June 06/2017 was 134 Fatigue probably multifactorial including hormone withdrawal recent History of fall from the tree, with injury to tailbone and right ribs Bone scan done on 07/20/2017 at [facility] showed 2 new lesions, one in the region of T2 and on in the pelvis likely skeletal metastasis. Multiple ribs lesions probably due to trauma Chest x-ray done on 09/26/2017 showed normal visualized bone structures. No acute changes bone scan done on 09/28/2007 showed metastatic bone disease is stable with no progression or improvement since 07/20/2017 CT scan of abdomen pelvis done on 07/20/2017 at [facility] [place] showed retroperitoneal lymphadenopathy is stable or slightly smaller soft tissue nodule in the Florence's pouch is unchanged New sclerotic lesion in the right anterior sacrum at S1 -S 3 may represent new focus of bone metastases Bone scan done on 07/24/2018 showed no new focus of increased activity, overall decreased activity of previously noted metastatic/posttraumatic changes since 09/28/2017. Unchanged cervicothoracic spine increase activity, probably related to prior anterior fusion changes. CT scan of pelvis done on 07/24/2018 showed no pelvic lymphadenopathy, a small soft tissue nodule measuring 10 mm inseparable from the right iliac vein, has been present since 01/17/2017 Venous Doppler study right leg shows no DVT CT scan of abdomen pelvis done on 2018 showed incidental left renal cyst without change Prior appendicectomy Stable right-sided pericaval lymph node. Variable appearance of blastic metastatic lesion right sacral luis and right side of S1 vertebral body bone scan done on 11/03/2018 showed increased uptake in right sacrum stable T4 lesion, and resolution of left costochondral lesions Status post radiation therapy to right sacroiliac area Follow-up bone scan done on 10/29/2019 shows no evidence of disease progression, no new area of metastatic disease Stable to slightly improved metastatic lesion involving the right posterior sacrum Additional stable to improve lesion involving the right T4 vertebral body and posterior fourth rib. Follow-up CT PET scan done on 11/10/2019 showed FDG negative, densely sclerotic osseous metastatic disease, consistent with sterilize malignancy. FDG positive lymph nodes in the right common iliac and mediastinal territories consistent with recurrent active malignancy. MRI scan of thoracic spine done on 11/07/2019 showed blastic well circumcised metastatic lesion involving T1 and T5 vertebral bodies likely previous treated, no significant edema or enhancement. No other visualized metastatic lesion. Mild chronic compression superior endplate T4 with incidental hemangioma Mr Aragon was referred to pulmonology for evaluation of mediastinal lymphadenopathy. He underwent bronchoscopy on 12/07/2019 right middle lobe. Endobronchial biopsy showed benign respiratory mucosa and cartilage. No malignancy identified. His PSA has continued to elevate and had recommended changing him to enzalutamide 160 mg p.o. daily and discontinue the Zytiga/prednisone. 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 every 3 weeks along with daily prednisone 10 mg, we will also consider Neulasta to prevent chemotherapy-induced neutropenia and leukopenia and also continue with his 3 monthly Lupron along with monthly Xgeva,, all the side effect possible benefits associate with cabazitaxel including but not limited to bone marrow suppression, peripheral neuropathy, hair loss, allergic reaction, were mentioned further teaching will be done by chemotherapy nurse patient will return to clinic in 1 week After chemotherapy is initiated with CBC, CMP Signed By: Sae Davies M.D. <<Signature on File>>
== END 2021-01-06 08:02 | disposition home or self-care (01) ==
LOC: ONCMED 08:06
PROVIDERS: PCP Internal Medicine; Visit Provider Internal Medicine Hematology & Oncology
DX: C61 Malignant neoplasm of prostate (principal); R97.20 Elevated prostate specific antigen [PSA]; G95.20 Unspecified cord compression; Z79.52 Long term (current) use of systemic steroids; Z79.818 Long term (current) use of other agents affecting estrogen receptors and estrogen levels; Z79.899 Other long term (current) drug therapy
CPT/HCPCS: 99215

== ENCOUNTER → 2021-01-07 11:34 | Outpatient (BNVA) | payer MEDICARE, BC, SELFPAY | PROVIDERS: PCP Internal Medicine; Visit Provider Internal Medicine Hematology & Oncology | DX: C61 Malignant neoplasm of prostate (principal) | CPT/HCPCS: 80053; 85025 ==

== ENCOUNTER 2021-01-08 06:24 | Outpatient (CLI) | payer MEDICARE, BC, SELFPAY ==
[2021-01-08] MEDS: famotidine 20 mg/2 mL INJ IVP (14:15)
[2021-01-08] MEDS: diphenhydrAMINE 50 mg/mL SDV 1mL 25 MG IVP (14:16)
[2021-01-08] MEDS: sodium chloride 0.9% 250 ML 999 ML IV (14:17)
[2021-01-08] MEDS: palonosetron 0.25 mg/5 mL SDV IVP (14:17)
[2021-01-08] MEDS: denosumab 120 mg SDV SUBCUT (15:40)
[2021-01-08] MEDS: pegfilgrastim 6 mg/0.6 mL Kit (onpro) SUBCUT (15:44)
== END 2021-01-08 06:25 | disposition home or self-care (01) ==
PROVIDERS: PCP Internal Medicine; Visit Provider Internal Medicine Hematology & Oncology
DX: Z51.12 Encounter for antineoplastic immunotherapy (principal); Z51.11 Encounter for antineoplastic chemotherapy; C61 Malignant neoplasm of prostate; C79.51 Secondary malignant neoplasm of bone; C77.5 Secondary and unspecified malignant neoplasm of intrapelvic lymph nodes
CPT/HCPCS: 96367; 96372; 96375; 96377; 96413; J0897; J1100; J1200; J2469; J2505; J3490; J7050; J9043

== ENCOUNTER 2021-01-16 05:55 | Outpatient (RCR) | payer MEDICARE, BC, SELFPAY ==
[2021-01-15 11:32] LABS: Basophils % 0.1 %; Eosinophils # 0.1 10^3/uL (0.0-0.8); Eosinophils % 0.6 %; Hematocrit 37.9 % (42.0-52.0); Lymphocytes # 1.3 10^3/uL (0.8-4.8); Lymphocytes % 5.4 %; Mean Corpuscular HGB Conc 31.7 g/dL (30.0-36.0); Mean Corpuscular Hemoglobin 30.9 pg (28.0-34.0); Mean Corpuscular Volume 97.7 fL (80-94); Mean Platelet Volume 10.6 fL (7.4-10.4); Monocytes # 1.3 10^3/uL (0.2-0.9); Monocytes % 5.6 %; Neutrophils # 19.57 10^3/uL (1.8-7.7); Neutrophils % 82.8 %; Nucleated Red Blood Cells % 0 %; Platelet Count 157 10^3/cmm (130-400); Red Blood Count 3.88 10^6/uL (4.1-5.3); Red Cell Distribution Width 14.4 % (12.1-15.1); White Blood Count 23.6 10^3/uL (4.0-10.0)
[2021-01-15 11:57] LABS: Alanine Aminotransferase 8 U/L (0-41); Albumin Level 3.7 g/dL (3.5-5.2); Alkaline Phosphatase 157 IU/L (40-130); Anion Gap 11.5 (5-19); Aspartate Amino Transferase 12 U/L (0-40); Blood Urea Nitrogen 12 mg/dL (8-23); Calcium 7.9 mg/dL (8.5-10.5); Carbon Dioxide 27 mmol/L (22-29); Chloride 102 mmol/L (98-107); Glucose 104 mg/dL (65-115); Osmolality Calculated 284 mOsm/kg (285-295); Potassium 3.5 mmol/L (3.5-5.1); Sodium 137 mmol/L (136-145); Total Bilirubin 0.4 mg/dL (0.15-1.2); Total Protein 5.7 g/dL (6.6-8.7)
[2021-01-15 11:59] LABS: Slide Review Slide Review Perform
--- NOTE | 2021-01-16 09:44 | ONC FU_ITS ---
Dr. Davies follow up note Patient: Oli Aragon Unit #: [id number]: 1935 Dicatated By: Sae Davies M.D.Date of Visit:Jan 16, 2021 Onc Med Follow-up/Prog Note History of Present Illness: Mr. Aragon is an 85-year-old gentleman with history of prostate cancer diagnosed with LUZMARIA in June 2009, with his PSA was 16.8 In July 2009, he underwent biopsy of prosate gland. The final report came back Stephanie score 9 (4+5) and [place]'s 8 (4+4) CT scan of pelvis in showed right obturator lymph nodes. He was started on chemotherapy/biotherapy/hormonal therapy Lupron. In February 2010, followup study showed partial remission and no evidence of disease on scans. from April 2010 to May 2010, he received radiation therapy to a total of 7800 cGy to prostate and pelvic lymph nodes 4500 cGy. From January 2013 to January 2014, he was treated with Casodex with a PSA response. In January 2016 he was noted to have disease progression lymph node size was increasing on scan and PSA gone up to 12.8 On 08/04/2016 plan was to started Zytiga/prednisone , PSA 13.1. On 08/30/2016 PSA was 25.3. His last dose of Lupron was in January 2017. Initially it was given every 3 months and was changed to every 6 months with followup at [facility]. Zytiga was under consideration but because of cost it was not started as per oncology note from [facility] on 01/17/2017. CT scan of abdomen pelvis done at [facility] on 01/17/2017 showed increasing retroperitoneal and right pelvic lymphadenopathy. A bone scan done on 01/17/2017 showed new foci of uptake involving the sacrum are suspicious for skeletal metastases and new focal uptake at the anterior lateral aspect of the right fourth rib. Which is nonspecific for metastatic versus intraoral trauma. Incidental small right upper lobe pulmonary nodule is nonspecific follow-up suggested. In October 2018 Zytiga was obtained for Mr. Cortes. Mr Aragon was tolerating ADT wit lupron and Zytiga/prednisone well. Follow-up CT PET scan done on 11/10/2019 showed FDG negative, densely sclerotic osseous metastatic disease, consistent with sterilize malignancy. FDG positive lymph nodes in the right common iliac and mediastinal territories consistent with recurrent active malignancy. MRI scan of thoracic spine done on 11/07/2019 showed blastic well circumcised metastatic lesion involving T1 and T5 vertebral bodies likely previous treated, no significant edema or enhancement. No other visualized metastatic lesion. Mild chronic compression superior endplate T4 with incidental hemangioma Mr Aragon was referred to pulmonology for evaluation of mediastinal lymphadenopathy. He underwent bronchoscopy on 12/07/2019 right middle lobe. Endobronchial biopsy showed benign respiratory mucosa and cartilage. No malignancy identified. His PSA has continued to elevate and had recommended changing him to enzalutamide 160 mg p.o. daily and discontinue the Zytiga/prednisone. He will continue with the Xgeva and Lupron. started Xtandi On February 09, 2020 While waiting for repeat bronchoscopy, follow-up CT scan of chest was done on March 05, 2020 which showed stable previously described FDG avid normal and slightly prominent lymph nodes right hilum, left AP window and subcarinal hilar lymph nodes are stable. Subcarinal lymph node is slightly enlarged measuring 11 mm unchanged from previous scan done on November 10, 2019. No evidence of progressive lymphadenopathy. Mild chronic emphysematous changes seen. No acute pulmonary infiltrates. Noncalcified fibrotic appearing nodule right upper lobe measuring 4 mm. Sclerotic FDG negative lesions consistent with treated osseous metastatic disease more prominent at T1, T5 and right fifth rib. Due to persistent severe diarrhea, Xtandi was put on hold on April 14, 2020,Restarted on July 31, 2020 but with low-dose e.g. 80 mg p.o. daily Which was discontinued on August 29, 2020 because of persistent abdominal pain, diarrhea Started on systemic therapy with Taxotere on October 28, 2020 Along with 3 monthly Lupron and Xgeva While on Taxotere, patient's PSA continue to increase, On December 01, 2020 his PSA was 77.01 compared to 68.44 on November 17 and 46.62 on October 28, 2020, thus follow-up CT scan of chest abdomen pelvis was done on December 11, 2020 which shows suspicious for progression of metastatic bone disease, new lesion in his thoracic spine, ribs and right ilium. And increasing lymph nodes along the right iliac chain measuring about 2.3 x 2.4 cm. No pulmonary nodules, no increase in size of indeterminate bilateral hilar lymph nodes Bone scan done on December 11, 2020 shows mild progression of metastatic bone disease since October 2019, now new lesions in the thoracic vertebrae right ilium and posterior right fifth rib versus scapula. Guardant 360 done on December 17, 2020 showed no obvious targetable therapeutic mutations Started on Jevtana on January 08, 2021 along with monthly Xgeva And 3 monthly Lupron Came for follow-up, denies any specific complaints except off and on progressive heaviness in well the right leg, no right leg swelling or edema, no numbness. No trauma to the leg, no fever chills, no nausea or vomiting, no diarrhea but mild constipation, patient tolerated first dose of Jevtana well Medications: Ambien 1 Tablet (of 5 mg) Oral at bedtime, Lomotil Tablet Oral PRN, Mirtazapine 1 Tablet (of 15 mg) Oral at bedtime PRN, Ondansetron HCl 1 Tablet (of 4 mg) Oral q 6 hours PRN, Tums 1 (500 mg) Tablet, chewable Oral PRN Allergies: No Known Allergies. Review of Systems: Review of Systems is not available for this patient. Vital Signs: Performed on Jan 16, 2021 08:23 Height - 76.00 in Weight - 173.0 lbs (LOW) BSA - 2.08 sq.m BMI - 21.06 Temperature - 98.0 F (LOW) Pulse - 56 /min (LOW) Respiration - 18 /min BP - 136/79 mm(hg) O2 Sat - 92 % (LOW) Performance Status: 1 - No physically strenuous activity, but ambulatory and able to carry out light or sedentary work (e.g. office work, light house work). (ECOG) Physical Examination: ENMT - No mouth sores, no thrush, no jaundice, Respiratory - Lungs are clear to auscultation, Cardiovascular - Regular rate and rhythm of heart, Abdomen - Soft, bowel sounds present, Extremities - No visible edema or focal weakness. Lab/Imaging: Test performed on Jan 07, 2021 11:34 Glucose 139 mg/dL BUN 11 mg/dL Creatinine 0.7 mg/dL Cr Clearance (Est) 89.41 mL/min Sodium 137 mmol/L Potassium 3.8 mmol/L Chloride 104 mmol/L CO2 24 mmol/L Calcium 8.2 mg/dL Protein, Total 5.9 g/dL Albumin 4.1 g/dL Globulin 1.8 g/dL Bilirubin, Total 0.4 mg/dL Alkaline Phosphatase 79 IU/L AST (SGOT) 17 IU/L ALT (SGPT) 9 IU/L WBC 7.2 10^9/L RBC 4.05 10^12/L HGB 12.7 g/dL HCT 39.6 % MCV 97.8 fl MCH 31.4 pg MCHC 32.1 g/dL RDW 14.0 % Platelet Count 177 10^9/L MPV 10.9 fL Neutrophils (Gran) 5.84 10^9/L Lymphocytes 1.1 10^9/L Monocytes 0.2 10^9/L Eosinophils 0.0 10^9/L Basophils 0.0 10^9/L Manual Lymphocytes 80.7 % Manual Monocytes 2.4 % Manual Eosinophils 0.3 % Manual Basophils 0.4 % NRBCs 0.0 /100 WBC Test performed on Nov 12, 2020 12:15 Anion Gap 10.8 Osmolality - Calculated 284 mOsm/kg Neutrophil % 47.3 % Lymphocyte % 32.3 % Monocyte % 15.8 % Eosinophil % 0.8 % Basophils % 1.1 % NRBC % 0 % Test performed on Oct 28, 2020 09:16 PSA 46.620 ng/mL Test performed on Aug 29, 2020 08:25 Magnesium 1.8 mg/dL Test performed on Jul 31, 2020 12:00 Testosterone, Total < 2.5 ng/dL Impression: Adenocarcinoma of prostate,Initially diagnosed in July 2009, status post radiation. Prostate and pelvic lymph nodesin April 2010, now with recurrent with pelvic/retroperitoneal lymphadenopathy and abnormal bone scan. On Lupron at [facility] Bone scan done on 05/11/2017 showed no evidence of bony metastatic disease Rising PSA while on Lupron Started on zytiga 1000mg po qd and prednisone 5 mg twice a day on 06/08/2017 in his PSA on June 06/2017 was 134 Fatigue probably multifactorial including hormone withdrawal recent History of fall from the tree, with injury to tailbone and right ribs Bone scan done on 07/20/2017 at [facility] showed 2 new lesions, one in the region of T2 and on in the pelvis likely skeletal metastasis. Multiple ribs lesions probably due to trauma Chest x-ray done on 09/26/2017 showed normal visualized bone structures. No acute changes bone scan done on 09/28/2007 showed metastatic bone disease is stable with no progression or improvement since 07/20/2017 CT scan of abdomen pelvis done on 07/20/2017 at [facility] showed retroperitoneal lymphadenopathy is stable or slightly smaller soft tissue nodule in the Florence's pouch is unchanged New sclerotic lesion in the right anterior sacrum at S1 -S 3 may represent new focus of bone metastases Bone scan done on 07/24/2018 showed no new focus of increased activity, overall decreased activity of previously noted metastatic/posttraumatic changes since 09/28/2017. Unchanged cervicothoracic spine increase activity, probably related to prior anterior fusion changes. CT scan of pelvis done on 07/24/2018 showed no pelvic lymphadenopathy, a small soft tissue nodule measuring 10 mm inseparable from the right iliac vein, has been present since 01/17/2017 Venous Doppler study right leg shows no DVT CT scan of abdomen pelvis done on every 2018 showed incidental left renal cyst without change Prior appendicectomy Stable right-sided pericaval lymph node. Variable appearance of blastic metastatic lesion right sacral luis and right side of S1 vertebral body bone scan done on 11/03/2018 showed increased uptake in right sacrum stable T4 lesion, and resolution of left costochondral lesions Status post radiation therapy to right sacroiliac area Follow-up bone scan done on 10/29/2019 shows no evidence of disease progression, no new area of metastatic disease Stable to slightly improved metastatic lesion involving the right posterior sacrum Additional stable to improve lesion involving the right T4 vertebral body and posterior fourth rib. Follow-up CT PET scan done on 11/10/2019 showed FDG negative, densely sclerotic osseous metastatic disease, consistent with sterilize malignancy. FDG positive lymph nodes in the right common iliac and mediastinal territories consistent with recurrent active malignancy. MRI scan of thoracic spine done on 11/07/2019 showed blastic well circumcised metastatic lesion involving T1 and T5 vertebral bodies likely previous treated, no significant edema or enhancement. No other visualized metastatic lesion. Mild chronic compression superior endplate T4 with incidental hemangioma Mr Aragon was referred to pulmonology for evaluation of mediastinal lymphadenopathy. He underwent bronchoscopy on 12/07/2019 right middle lobe. Endobronchial biopsy showed benign respiratory mucosa and cartilage. No malignancy identified. His PSA has continued to elevate and had recommended changing him to enzalutamide 160 mg p.o. daily and discontinue the Zytiga/prednisone. He will continue with the Xgeva and Lupron.Xtandi was put on hold on April 14, 2020 because of diarrheaAnd eventually discontinued, his PSA continues to go up while on docetaxel and on December 17, 2020 his PSA was 84.9 compared to 68.4 on November 17, at that time he was decided to discontinue Taxotere and last dose was given on November 17, 2020, his treatment was discussed and changed to Jevtana on January 08, 2021 will continue on monthly Xgeva and 3 monthly Lupron. Plan: Discussed with patient regarding his labs white blood count 23.6 hemoglobin 12 hematocrit 37.9 platelets 157,000 CMP within normal limits Clinically, patient doing well with no new signs symptom, tolerated first dose of Jevtana well, his follow-up CBC shows leukocytosis probably due to Neulasta. Patient is also complaining of progressive but off and on right leg heaviness/pain but no numbness or severe pain,, etiology unclear could be disc herniation or metastatic disease to hip or lower back, at this point will consider MRI scan of the lumbosacral area as well as hips. Patient was advised in case there is a worsening of symptoms he need to call us or go to hospital otherwise return to clinic in 2 weeks with CBC CMP PSA and MRI scan of the lumbosacral area/pelvis. Signed By: Sae Davies M.D. <<Signature on File>>
== END 2021-01-16 23:59 | disposition home or self-care (01) ==
LOC: ONCMED 05:55
PROVIDERS: PCP Internal Medicine; Visit Provider Internal Medicine Hematology & Oncology
DX: C61 Malignant neoplasm of prostate (principal); C79.51 Secondary malignant neoplasm of bone; C77.5 Secondary and unspecified malignant neoplasm of intrapelvic lymph nodes; R97.20 Elevated prostate specific antigen [PSA]; R53.82 Chronic fatigue, unspecified; Z79.818 Long term (current) use of other agents affecting estrogen receptors and estrogen levels; Z79.899 Other long term (current) drug therapy
CPT/HCPCS: 36591; 80053; 85025; 99214

== ENCOUNTER 2021-02-09 05:49 | Outpatient (RCR) | payer MEDICARE, BC, SELFPAY ==
--- NOTE | 2021-02-02 08:34 | MR_ITS ---
WS: [id number] MRI LUMBAR SPINE WITH CONTRAST TECHNIQUE: Sagittal T1, T2 and STIR imaging. Axial T1 and T2 imaging. Post gadolinium imaging was obt ained. CLINICAL INFORMATION: HX OF CANCER;BACK PAIN;HEAVINESS IN RIGHT LEG COMPARISON: PET/CT October 2019 bone scan December 11, 2020 FINDINGS: Fatty replacement normal bone marrow signal likely due to prior treatment-related changes. Enhancing lesion involving the S1 vertebral body eccentric to the right appears unchanged since the prior recen t bone scan. This measures approximately 4.2 x 3.9 x 2.1 CM. Slight anterolisthesis L5 on S1 bilatera l pars defects. No acute compression fractures. No high-grade central canal stenosis. Enhancing metastatic lesion involving the L1 spinous process unchanged since the prior bone scan. Thi s measures approximately 1.6 cm. No evidence of epidural disease. L1-L2: Normal L2-L3: Mild annular bulging. Slight effacement of the ventral thecal sac. Mild facet arthropathy. Mil d left foraminal narrowing. Mild to moderate facet arthropathy. Mild annular bulging. L3-L4: Mild facet arthropathy. Spinal canal and foramen are patent. L4-L5: Minimal annular bulging. Slight effacement of the ventral thecal sac. Spinal canal and foramen are patent. Mild facet arthropathy. L5-S1: Grade 1 anterolisthesis. Chronic bilateral pars defects. Mild right foraminal narrowing. Mild facet arthropathy. Partially visualized left renal cyst measuring 4.8 cm. MR/MR lumbar spine wo/w con [id number] IMPRESSION: 1. Enhancing metastatic lesions involving the right aspect of the sacrum S1 un changed since the recent bone scan measuring 4.2 x 3.9 x 2.1 CM. 2. Enhancing metastatic lesion involving the posterior L1 spinous process also unchanged since the prior bone scan. 3. No evidence of enhancing epidural disease. 4. No high-grade central canal stenosis. 5. Mild right L5-S1 foraminal narrowing. 6. Chronic bilateral pars defects L5-S1 with slight anterolisthesis.
--- NOTE | 2021-02-02 08:34 | MR_ITS ---
WS: [id number] INDICATION: Back pain right leg pain TECHNIQUE: MR of the pelvis without and with gadolinium enhancement. Axial T1 and T2 imaging. Coronal T1-T2 and STIR imaging. Post gadolinium fat saturation multiplanar imaging was obtained. FINDINGS: Comparison recent bone scan December 11, 2020 and PET/CT October 2019 Enhancing metastatic right sacral lesion at S1 is unchanged from the prior bone scan. This measures a pproximately 4.2 x 3.9 x 2.1 cm. Small enhancing metastatic lesion in the right ilium measuring 11 mm . Additional adjacent eccentric enhancing metastatic lesion measuring 8 mm. Normal pubic rami. Femora l heads are normal in appearance. Normal heterogeneous bone marrow signal proximal femurs. Right iliac chain lymphadenopathy. Slight anterolisthesis L5 on S1 bilateral pars defects. MR/MR pelvis wo/w con [id number] IMPRESSION: 1. Enhancing metastatic right sacral lesion at S1 is unchanged from the prior bone scan. This measures approximately 4.2 x 3.9 x 2.1 cm. 2. Small enhancing metastatic lesions in the right ilium measuring 11 mm. Osmel tional adjacent eccentric enhancing metastatic lesion measuring 8 mm 3. Right iliac chain lymphadenopathy.
[2021-02-02] MEDS: gadobenate dimeglumine 20 mL vial IV (10:31)
[2021-02-05 13:22] LABS: Basophils % 0.2 %; Eosinophils % 0.1 %; Hematocrit 37.5 % (42.0-52.0); Hemoglobin 11.9 g/dL (11.7-16.6); Lymphocytes # 0.5 10^3/uL (0.8-4.8); Lymphocytes % 6.2 %; Mean Corpuscular HGB Conc 31.7 g/dL (30.0-36.0); Mean Corpuscular Hemoglobin 31.1 pg (28.0-34.0); Mean Corpuscular Volume 97.9 fL (80-94); Mean Platelet Volume 9.9 fL (7.4-10.4); Monocytes # 0.1 10^3/uL (0.2-0.9); Monocytes % 1.3 %; Neutrophils # 7.95 10^3/uL (1.8-7.7); Nucleated Red Blood Cells % 0 %; Platelet Count 210 10^3/cmm (130-400); Red Blood Count 3.83 10^6/uL (4.1-5.3); Red Cell Distribution Width 14.7 % (12.1-15.1); White Blood Count 8.7 10^3/uL (4.0-10.0)
[2021-02-05 13:59] LABS: Alanine Aminotransferase 12 U/L (0-41); Alkaline Phosphatase 53 IU/L (40-130); Anion Gap 14.4 (5-19); Aspartate Amino Transferase 14 U/L (0-40); Blood Urea Nitrogen 13 mg/dL (8-23); Calcium 8.1 mg/dL (8.5-10.5); Carbon Dioxide 24 mmol/L (22-29); Chloride 104 mmol/L (98-107); Globulin 1.9 g/dL (1.3-4.6); Glucose 104 mg/dL (65-115); Osmolality Calculated 286 mOsm/kg (285-295); Potassium 4.4 mmol/L (3.5-5.1); Sodium 138 mmol/L (136-145); Total Bilirubin 0.3 mg/dL (0.15-1.2); Total Protein 5.9 g/dL (6.6-8.7)
--- NOTE | 2021-02-05 17:48 | ONC FU_ITS ---
Dr. Davies follow up note Patient: Oli Aragon Unit #: [id number]: 1935 Dicatated By: Sae Davies M.D.Date of Visit:February 05, 2021 Onc Med Follow-up/Prog Note History of Present Illness: Mr. Aragon is an 85-year-old gentleman with history of prostate cancer diagnosed with LUZMARIA in June 2009, with his PSA was 16.8 In July 2009, he underwent biopsy of prosate gland. The final report came back Stephanie score 9 (4+5) and [place]'s 8 (4+4) CT scan of pelvis in showed right obturator lymph nodes. He was started on chemotherapy/biotherapy/hormonal therapy Lupron. In February 2010, followup study showed partial remission and no evidence of disease on scans. from April 2010 to May 2010, he received radiation therapy to a total of 7800 cGy to prostate and pelvic lymph nodes 4500 cGy. From January 2013 to January 2014, he was treated with Casodex with a PSA response. In January 2016 he was noted to have disease progression lymph node size was increasing on scan and PSA gone up to 12.8 On 08/04/2016 plan was to started Zytiga/prednisone , PSA 13.1. On 08/30/2016 PSA was 25.3. His last dose of Lupron was in January 2017. Initially it was given every 3 months and was changed to every 6 months with followup at [facility]. Zytiga was under consideration but because of cost it was not started as per oncology note from [facility] on 01/17/2017. CT scan of abdomen pelvis done at [facility] on 01/17/2017 showed increasing retroperitoneal and right pelvic lymphadenopathy. A bone scan done on 01/17/2017 showed new foci of uptake involving the sacrum are suspicious for skeletal metastases and new focal uptake at the anterior lateral aspect of the right fourth rib. Which is nonspecific for metastatic versus intraoral trauma. Incidental small right upper lobe pulmonary nodule is nonspecific follow-up suggested. In October 2018 Zytiga was obtained for Mr. Cortes. Mr Aragon was tolerating ADT wit lupron and Zytiga/prednisone well. Follow-up CT PET scan done on 11/10/2019 showed FDG negative, densely sclerotic osseous metastatic disease, consistent with sterilize malignancy. FDG positive lymph nodes in the right common iliac and mediastinal territories consistent with recurrent active malignancy. MRI scan of thoracic spine done on 11/07/2019 showed blastic well circumcised metastatic lesion involving T1 and T5 vertebral bodies likely previous treated, no significant edema or enhancement. No other visualized metastatic lesion. Mild chronic compression superior endplate T4 with incidental hemangioma Mr Aragon was referred to pulmonology for evaluation of mediastinal lymphadenopathy. He underwent bronchoscopy on 12/07/2019 right middle lobe. Endobronchial biopsy showed benign respiratory mucosa and cartilage. No malignancy identified. His PSA has continued to elevate and had recommended changing him to enzalutamide 160 mg p.o. daily and discontinue the Zytiga/prednisone. He will continue with the Xgeva and Lupron. started Xtandi On February 09, 2020 While waiting for repeat bronchoscopy, follow-up CT scan of chest was done on March 05, 2020 which showed stable previously described FDG avid normal and slightly prominent lymph nodes right hilum, left AP window and subcarinal hilar lymph nodes are stable. Subcarinal lymph node is slightly enlarged measuring 11 mm unchanged from previous scan done on November 10, 2019. No evidence of progressive lymphadenopathy. Mild chronic emphysematous changes seen. No acute pulmonary infiltrates. Noncalcified fibrotic appearing nodule right upper lobe measuring 4 mm. Sclerotic FDG negative lesions consistent with treated osseous metastatic disease more prominent at T1, T5 and right fifth rib. Due to persistent severe diarrhea, Xtandi was put on hold on April 14, 2020,Restarted on July 31, 2020 but with low-dose e.g. 80 mg p.o. daily Which was discontinued on August 29, 2020 because of persistent abdominal pain, diarrhea Started on systemic therapy with Taxotere on October 28, 2020 Along with 3 monthly Lupron and Xgeva While on Taxotere, patient's PSA continue to increase, On December 01, 2020 his PSA was 77.01 compared to 68.44 on November 17 and 46.62 on October 28, 2020, thus follow-up CT scan of chest abdomen pelvis was done on December 11, 2020 which shows suspicious for progression of metastatic bone disease, new lesion in his thoracic spine, ribs and right ilium. And increasing lymph nodes along the right iliac chain measuring about 2.3 x 2.4 cm. No pulmonary nodules, no increase in size of indeterminate bilateral hilar lymph nodes Bone scan done on December 11, 2020 shows mild progression of metastatic bone disease since October 2019, now new lesions in the thoracic vertebrae right ilium and posterior right fifth rib versus scapula. Guardant 360 done on December 17, 2020 showed no obvious targetable therapeutic mutations Started on Jevtana/Prednisone on January 08, 2021 along with monthly Xgeva And 3 monthly Lupron MRI lumbar spine done on February 02, 2021 showed enhancing metastatic lesion involving right aspect of sacrum S1 unchanged since bone scan done on December 11, 2020, mass measuring 4.2 x 3.9 x 2.1 cm. Enhancing metastatic lesion involving posterior L1 spinous process is also unchanged. No evidence of enhancing epidural disease. Mild right L5-S1 foraminal narrowing Patient is status post radiation therapy to sacrum in the past Came for follow-up, denies any specific complaints except heaviness in the right leg but no weakness or numbness, no urine or stool incontinence, no nausea or vomiting, no fever chills, no peripheral neuropathy tolerated first cycle of Jevtana/prednisone well Medications: Ambien 1 Tablet (of 5 mg) Oral at bedtime, Mirtazapine 1 Tablet (of 15 mg) Oral at bedtime PRN, Ondansetron HCl 1 Tablet (of 4 mg) Oral q 6 hours PRN, predniSONE 1 Tablet (of 10 mg) Oral daily, Tums 1 (500 mg) Tablet, chewable Oral PRN Allergies: No Known Allergies. Review of Systems: Review of Systems is not available for this patient. Vital Signs: Performed on February 05, 2021 14:44 Height - 76.00 in Weight - 174.8 lbs (HIGH) BSA - 2.09 sq.m BMI - 21.28 Temperature - 96.6 F (LOW) Pulse - 71 /min Respiration - 18 /min BP - 147/81 mm(hg) (HIGH) O2 Sat - 98 % Pain - 0 Fatigue - 6 Performance Status: 0 - Fully active, able to carry on all predisease activities without restrictions. (ECOG) Physical Examination: ENMT - No mouth sores, no thrush, no jaundice, Respiratory - Lungs are clear to auscultation, Cardiovascular - Regular rate and rhythm of heart, Abdomen - Soft, bowel sounds present, Extremities - No visible edema. Lab/Imaging: Test performed on Jan 07, 2021 11:34 Glucose 139 mg/dL BUN 11 mg/dL Creatinine 0.7 mg/dL Cr Clearance (Est) 89.41 mL/min Sodium 137 mmol/L Potassium 3.8 mmol/L Chloride 104 mmol/L CO2 24 mmol/L Calcium 8.2 mg/dL Protein, Total 5.9 g/dL Albumin 4.1 g/dL Globulin 1.8 g/dL Bilirubin, Total 0.4 mg/dL Alkaline Phosphatase 79 IU/L AST (SGOT) 17 IU/L ALT (SGPT) 9 IU/L WBC 7.2 10^9/L RBC 4.05 10^12/L HGB 12.7 g/dL HCT 39.6 % MCV 97.8 fl MCH 31.4 pg MCHC 32.1 g/dL RDW 14.0 % Platelet Count 177 10^9/L MPV 10.9 fL Neutrophils (Gran) 5.84 10^9/L Lymphocytes 1.1 10^9/L Monocytes 0.2 10^9/L Eosinophils 0.0 10^9/L Basophils 0.0 10^9/L Manual Lymphocytes 80.7 % Manual Monocytes 2.4 % Manual Eosinophils 0.3 % Manual Basophils 0.4 % NRBCs 0.0 /100 WBC Test performed on Nov 12, 2020 12:15 Anion Gap 10.8 Osmolality - Calculated 284 mOsm/kg Neutrophil % 47.3 % Lymphocyte % 32.3 % Monocyte % 15.8 % Eosinophil % 0.8 % Basophils % 1.1 % NRBC % 0 % Test performed on Oct 28, 2020 09:16 PSA 46.620 ng/mL Test performed on Aug 29, 2020 08:25 Magnesium 1.8 mg/dL Impression: Adenocarcinoma of prostate,Initially diagnosed in July 2009, status post radiation. Prostate and pelvic lymph nodesin April 2010, now with recurrent with pelvic/retroperitoneal lymphadenopathy and abnormal bone scan. On Lupron at [facility] Bone scan done on 05/11/2017 showed no evidence of bony metastatic disease Rising PSA while on Lupron Started on zytiga 1000mg po qd and prednisone 5 mg twice a day on 06/08/2017 in his PSA on June 06/2017 was 134 Fatigue probably multifactorial including hormone withdrawal recent History of fall from the tree, with injury to tailbone and right ribs Bone scan done on 07/20/2017 at [facility] showed 2 new lesions, one in the region of T2 and on in the pelvis likely skeletal metastasis. Multiple ribs lesions probably due to trauma Chest x-ray done on 09/26/2017 showed normal visualized bone structures. No acute changes bone scan done on 09/28/2007 showed metastatic bone disease is stable with no progression or improvement since 07/20/2017 CT scan of abdomen pelvis done on 07/20/2017 at [facility] showed retroperitoneal lymphadenopathy is stable or slightly smaller soft tissue nodule in the Florence's pouch is unchanged New sclerotic lesion in the right anterior sacrum at S1 -S 3 may represent new focus of bone metastases Bone scan done on 07/24/2018 showed no new focus of increased activity, overall decreased activity of previously noted metastatic/posttraumatic changes since 09/28/2017. Unchanged cervicothoracic spine increase activity, probably related to prior anterior fusion changes. CT scan of pelvis done on 07/24/2018 showed no pelvic lymphadenopathy, a small soft tissue nodule measuring 10 mm inseparable from the right iliac vein, has been present since 01/17/2017 Venous Doppler study right leg shows no DVT CT scan of abdomen pelvis done on every 2018 showed incidental left renal cyst without change Prior appendicectomy Stable right-sided pericaval lymph node. Variable appearance of blastic metastatic lesion right sacral luis and right side of S1 vertebral body bone scan done on 11/03/2018 showed increased uptake in right sacrum stable T4 lesion, and resolution of left costochondral lesions Status post radiation therapy to right sacroiliac area Follow-up bone scan done on 10/29/2019 shows no evidence of disease progression, no new area of metastatic disease Stable to slightly improved metastatic lesion involving the right posterior sacrum Additional stable to improve lesion involving the right T4 vertebral body and posterior fourth rib. Follow-up CT PET scan done on 11/10/2019 showed FDG negative, densely sclerotic osseous metastatic disease, consistent with sterilize malignancy. FDG positive lymph nodes in the right common iliac and mediastinal territories consistent with recurrent active malignancy. MRI scan of thoracic spine done on 11/07/2019 showed blastic well circumcised metastatic lesion involving T1 and T5 vertebral bodies likely previous treated, no significant edema or enhancement. No other visualized metastatic lesion. Mild chronic compression superior endplate T4 with incidental hemangioma Mr Aragon was referred to pulmonology for evaluation of mediastinal lymphadenopathy. He underwent bronchoscopy on 12/07/2019 right middle lobe. Endobronchial biopsy showed benign respiratory mucosa and cartilage. No malignancy identified. His PSA has continued to elevate and had recommended changing him to enzalutamide 160 mg p.o. daily and discontinue the Zytiga/prednisone. He will continue with the Xgeva and Lupron.Xtandi was put on hold on April 14, 2020 because of diarrheaAnd eventually discontinued, his PSA continues to go up while on docetaxel and on December 17, 2020 his PSA was 84.9 compared to 68.4 on November 17, at that time he was decided to discontinue Taxotere and last dose was given on November 17, 2020, his treatment was discussed and changed to Jevtana on January 08, 2021 will continue on monthly Xgeva and 3 monthly Lupron. Plan: Discussed with patient regarding his labs white blood count 8.7 hemoglobin 11.9 hematocrit 37.5 platelets 210,000 CMP within normal limits PSA 90.68 compared to 84.98 on December 17, 2020 Clinically, patient doing reasonably well, tolerated first cycle of treatment with Jevtana/prednisone well patient is due for next dose today but his medicine is not available in clinic so he will return to clinic on Tuesday for second cycle of Jevtana/prednisone As far as right leg heaviness is concerned probably due to enhancing metastatic lesion involving right aspect of sacrum 1, patient was treated with SBRT to this area in the past, case was discussed with radiation oncology today, palliative radiation therapy can be considered but toxicity can be substantial. Patient not symptomatic except mild heaviness in the right leg., Hopefully if there is response to Jevtana/prednisone, his symptoms improve but if there is a worsening, will consider palliative radiation therapy. There is mild increase in PSA could be due to flare or disease progression prior to the Jevtana infusion as PSA was checked on December 17, 2020 and Jevtana was started on January 08, 2021, Will monitor closely Patient return to clinic on Tuesday for next dose of Jevtana and he will continue prednisone as recommended and then he will return to clinic in 4 weeks with CBC CMP and PSA Signed By: Sae Davies M.D. <<Signature on File>>
[2021-02-09] MEDS: denosumab 120 mg SDV SUBCUT (14:00)
[2021-02-09] MEDS: palonosetron 0.25 mg/5 mL SDV IVP (14:00)
[2021-02-09] MEDS: sodium chloride 0.9% 250 ML 999 ML IV (14:00)
[2021-02-09] MEDS: famotidine 20 mg/2 mL INJ IVP (14:01)
[2021-02-09] MEDS: diphenhydrAMINE 50 mg/mL SDV 1mL 25 MG IVP (14:03)
[2021-02-09] MEDS: pegfilgrastim 6 mg/0.6 mL Kit (onpro) SUBCUT (15:35)
== END 2021-02-16 23:59 | disposition home or self-care (01) ==
LOC: ONCMED 05:49
PROVIDERS: Internal Medicine Hematology & Oncology; PCP Internal Medicine; Visit Provider Internal Medicine Medical Oncology
DX: Z51.12 Encounter for antineoplastic immunotherapy (principal); Z51.11 Encounter for antineoplastic chemotherapy; C61 Malignant neoplasm of prostate; C79.51 Secondary malignant neoplasm of bone; R97.20 Elevated prostate specific antigen [PSA]; R53.83 Other fatigue; Z79.818 Long term (current) use of other agents affecting estrogen receptors and estrogen levels; Z79.52 Long term (current) use of systemic steroids
CPT/HCPCS: 36591; 72158; 72197; 80053; 84153; 85025; 96367; 96372; 96375; 96377; 96413; 99215; A9577; J0897; J1100; J1200; J2469; J2505; J3490; J7050; J9043

== ENCOUNTER 2021-03-02 05:55 | Outpatient (RCR) | payer MEDICARE, BC, SELFPAY ==
[2021-03-02 09:08] LABS: Lymphocytes # 0.6 10^3/uL (0.8-4.8); Mean Corpuscular HGB Conc 32.5 g/dL (30.0-36.0); Mean Corpuscular Hemoglobin 31.8 pg (28.0-34.0); Mean Corpuscular Volume 97.8 fL (80-94); Monocytes # 0.3 10^3/uL (0.2-0.9); Monocytes % 3.5 %; Neutrophils # 7.32 10^3/uL (1.8-7.7); Nucleated Red Blood Cells % 0 %; Platelet Count 202 10^3/cmm (130-400); Red Blood Count 4.09 10^6/uL (4.1-5.3); Red Cell Distribution Width 14.4 % (12.1-15.1); White Blood Count 8.2 10^3/uL (4.0-10.0)
[2021-03-02 10:04] LABS: Alanine Aminotransferase 10 U/L (0-41); Alkaline Phosphatase 71 IU/L (40-130); Anion Gap 16.8 (5-19); Aspartate Amino Transferase 12 U/L (0-40); Blood Urea Nitrogen 16 mg/dL (8-23); Calcium 8.9 mg/dL (8.5-10.5); Carbon Dioxide 19 mmol/L (22-29); Chloride 104 mmol/L (98-107); Glucose 167 mg/dL (65-115); Osmolality Calculated 287 mOsm/kg (285-295); Potassium 3.8 mmol/L (3.5-5.1); Sodium 136 mmol/L (136-145); Total Bilirubin 0.3 mg/dL (0.15-1.2)
[2021-03-02] MEDS: palonosetron 0.25 mg/5 mL SDV IVP (11:10)
[2021-03-02] MEDS: sodium chloride 0.9% 250 ML 999 ML IV (11:10)
[2021-03-02] MEDS: famotidine 20 mg/2 mL INJ IVP (11:11)
[2021-03-02] MEDS: diphenhydrAMINE 50 mg/mL SDV 1mL 25 MG IVP (11:13)
[2021-03-02] MEDS: pegfilgrastim 6 mg/0.6 mL Kit (onpro) SUBCUT (12:45)
[2021-03-02] MEDS: leuprolide 22.5 mg Kit IM (12:50)
--- NOTE | 2021-03-02 13:28 | ONC FU_ITS ---
[facility] Patient Note Patient: Oli Aragon Unit #: [id number]: [id number] Dictated By: Nadine GarrisonDate of Visit: Mar 02, 2021 Onc MED Follow-Up/Prog Note Chief Complaint: Prostate cancer History of Present Illness: Mr. Aragon is an 85-year-old gentleman with history of prostate cancer diagnosed with LUZMARIA in June 2009, with his PSA was 16.8 In July 2009, he underwent biopsy of prostate gland. The final report came back Stephanie score 9 (4+5) and Eff[place]'s 8 (4+4) CT scan of pelvis in showed right obturator lymph nodes. He was started on chemotherapy/biotherapy/hormonal therapy Lupron. In February 2010, followup study showed partial remission and no evidence of disease on scans. from April 2010 to May 2010, he received radiation therapy to a total of 7800 cGy to prostate and pelvic lymph nodes 4500 cGy. From January 2013 to January 2014, he was treated with Casodex with a PSA response. In January 2016 he was noted to have disease progression lymph node size was increasing on scan and PSA gone up to 12.8 On 08/04/2016 plan was to started Zytiga/prednisone , PSA 13.1. On 08/30/2016 PSA was 25.3. His last dose of Lupron was in January 2017. Initially it was given every 3 months and was changed to every 6 months with followup at [facility]. Zytiga was under consideration but because of cost it was not started as per oncology note from [facility] on 01/17/2017. CT scan of abdomen pelvis done at [facility] on 01/17/2017 showed increasing retroperitoneal and right pelvic lymphadenopathy. A bone scan done on 01/17/2017 showed new foci of uptake involving the sacrum are suspicious for skeletal metastases and new focal uptake at the anterior lateral aspect of the right fourth rib. Which is nonspecific for metastatic versus intraoral trauma. Incidental small right upper lobe pulmonary nodule is nonspecific follow-up suggested. In October 2018 Zytiga was obtained for Mr. Cortes. Mr Aragon was tolerating ADT wit lupron and Zytiga/prednisone well. Follow-up CT PET scan done on 11/10/2019 showed FDG negative, densely sclerotic osseous metastatic disease, consistent with sterilize malignancy. FDG positive lymph nodes in the right common iliac and mediastinal territories consistent with recurrent active malignancy. MRI scan of thoracic spine done on 11/07/2019 showed blastic well circumcised metastatic lesion involving T1 and T5 vertebral bodies likely previous treated, no significant edema or enhancement. No other visualized metastatic lesion. Mild chronic compression superior endplate T4 with incidental hemangioma Mr Aragon was referred to pulmonology for evaluation of mediastinal lymphadenopathy. He underwent bronchoscopy on 12/07/2019 right middle lobe. Endobronchial biopsy showed benign respiratory mucosa and cartilage. No malignancy identified. His PSA has continued to elevate and had recommended changing him to enzalutamide 160 mg p.o. daily and discontinue the Zytiga/prednisone. He will continue with the Xgeva and Lupron. started Xtandi On February 09, 2020 While waiting for repeat bronchoscopy, follow-up CT scan of chest was done on March 05, 2020 which showed stable previously described FDG avid normal and slightly prominent lymph nodes right hilum, left AP window and subcarinal hilar lymph nodes are stable. Subcarinal lymph node is slightly enlarged measuring 11 mm unchanged from previous scan done on November 10, 2019. No evidence of progressive lymphadenopathy. Mild chronic emphysematous changes seen. No acute pulmonary infiltrates. Noncalcified fibrotic appearing nodule right upper lobe measuring 4 mm. Sclerotic FDG negative lesions consistent with treated osseous metastatic disease more prominent at T1, T5 and right fifth rib. Due to persistent severe diarrhea, Xtandi was put on hold on April 14, 2020,Restarted on July 31, 2020 but with low-dose e.g. 80 mg p.o. daily Which was discontinued on August 29, 2020 because of persistent abdominal pain, diarrhea He started on systemic therapy with Taxotere on October 28, 2020, along with every 3 months Lupron and monthy Xgeva. While on Taxotere, patient's PSA continue to increase, On December 01, 2020 his PSA was 77.01 compared to 68.44 on November 17 and 46.62 on October 28, 2020, thus follow-up CT scan of chest abdomen pelvis was done on December 11, 2020 which shows suspicious for progression of metastatic bone disease, new lesion in his thoracic spine, ribs and right ilium. And increasing lymph nodes along the right iliac chain measuring about 2.3 x 2.4 cm. No pulmonary nodules, no increase in size of indeterminate bilateral hilar lymph nodes Bone scan done on December 11, 2020 shows mild progression of metastatic bone disease since October 2019, now new lesions in the thoracic vertebrae right ilium and posterior right fifth rib versus scapula. Guardant 360 done on December 17, 2020 showed no obvious targetable therapeutic mutations Mr Aragon tarted on Jevtana/Prednisone on January 08, 2021 along with monthly Xgeva and 3 monthly Lupron. He has tolerated it well thus far. MRI lumbar spine done on February 02, 2021 showed enhancing metastatic lesion involving right aspect of sacrum S1 unchanged since bone scan done on December 11, 2020, mass measuring 4.2 x 3.9 x 2.1 cm. Enhancing metastatic lesion involving posterior L1 spinous process is also unchanged. No evidence of enhancing epidural disease. Mild right L5-S1 foraminal narrowing. Per Dr Davies's notes, patient is status post radiation therapy to sacrum in the past . Mr. Aragon has continued treatment with Jevtana, denosumab and Depo-Lupron. His last Jevtana was on February 09, 2021. He also had denosumab at that time. His last Depo-Lupron was November 17, 2020. He has tolerated it well overall. Mr. Aragon is here today for follow-up. He is due for cycle 3 Jevtana. He states overall he is doing well. He has had some seasonal allergies but is taking Benadryl at night and states that this is working well for him. He denies any fever or chills. He has had no signs of infection. He has had some clear nasal drainage but states it has not been a problem with taking the Benadryl. He denies any cough. He denies any hemoptysis. He denies any new pain. He states his appetite is good. Count of comes and goes but for the most part he states it is good. He denies any new fatigue. He denies shortness of breath orthopnea. He has had no hemoptysis. He denies any bowel or bladder changes. He states that he had been having some right leg numbness due to the mass in his pelvic area but states that he thinks that is much better overall he states I can use my right leg now . He denies any new concerns today. His ECOG is 1. Past Medical History: COVID 19 in 2019 Past Surgical History: Neck surgery in 2013 Appendectomy in 1970 Allergies: No Known Allergies. Medications: Ambien 1 Tablet (of 5 mg) Oral at bedtime diphenhydrAMINE HCl (25 mg) Capsule Oral at bedtime PRN Mirtazapine 1 Tablet (of 15 mg) Oral at bedtime PRN Ondansetron HCl 1 Tablet (of 4 mg) Oral q 6 hours PRN predniSONE 1 Tablet (of 10 mg) Oral daily Tums 1 (500 mg) Tablet, chewable Oral PRN Family History: Mr. Aragon's mother at age 89. Mr. Aragon's father at age 94. Social History: Mr. Aragon is and he is retired. Mr. Aragon no longer smokes but had smoked 0.5 packs/day for 7 years. He has no history of drinking. Mr. Aragon reports the following support systems: lives with spouse, significant other, family, or friends, lives in own house, supportive family/friends willing to assist with needs, and adequate transportation available for expected visits. His diet consists of regular meals. He indicates his activity level as: daily activities. Review Of Symptoms: <See Above> Vital Signs: Performed on Mar 02, 2021 10:22 Height - 76.00 in Weight - 172.2 lbs (LOW) BSA - 2.08 sq.m BMI - 20.96 Temperature - 98.2 F (LOW) Pulse - 90 /min Respiration - 18 /min BP - 119/74 mm(hg) O2 Sat - 94 % (LOW) Pain - 0 Fatigue - 0,1 - No physically strenuous activity, but ambulatory and able to carry out light or sedentary work (e.g. office work, light house work). (ECOG) Physical Examination: Constitutional Alert, oriented, no acute distress. Skin pink, warm and dry. Head Normocephalic; atraumatic. Eyes Conjunctivae and sclerae are clear and without icterus. Pupils are reactive and equal. Neck Supple without masses or thyromegaly. No jugular venous distension. Hematologic/Lymphatic No petechiae or purpura. No tender or palpable lymph nodes in the cervical or supraclavicular areas. Respiratory Lungs are clear to auscultation without rhonchi or wheezing. Cardiovascular Regular rate and rhythm of heart without murmurs,clicks, gallops or rubs. Back/Spine Non-tender to palpation. Extremities No visible deformities, no cyanosis, clubbing or edema. Musculoskeletal No tenderness or swelling, normal range of motion without obvious weakness. Integumentary No rashes or lesions. Neurologic No sensory or motor deficits, normal cerebellar function, normal gait. Psychiatric Alert and oriented times three. Coherent speech. Verbalizes understanding of our discussions today. Laboratory:Test performed on Mar 02, 2021 08:53 Sodium 136 mmol/L Potassium 3.8 mmol/L Chloride 104 mmol/L CO2 19 mmol/L Anion Gap 16.8 BUN 16 mg/dL Creatinine 0.9 mg/dL Cr Clearance (Est) 69.5400 mL/min Glucose 167 mg/dL Osmolality - Calculated 287 mOsm/kg Calcium 8.9 mg/dL Protein, Total 6.0 g/dL Albumin 4.0 g/dL Globulin 2.0 g/dL Bilirubin, Total 0.3 mg/dL ALT (SGPT) 10 U/L AST (SGOT) 12 U/L Alkaline Phosphatase 71 IU/L WBC 8.2 10 3/uL RBC 4.09 10 6/uL HGB 13.0 g/dL HCT 40.0 % MCV 97.8 fL MCH 31.8 pg MCHC 32.5 g/dL RDW 14.4 % Platelet Count 202 10 3/cmm MPV 10.0 fL Neutrophils 7.32 10 3/uL Lymphocytes 0.6 10 3/uL Monocytes 0.3 10 3/uL Eosinophils 0.0 10 3/uL Basophils 0.0 10 3/uL Neutrophil % 89.0 % Lymphocyte % 7.0 % Monocyte % 3.5 % Eosinophil % 0.0 % Basophils % 0.0 % NRBC % 0 % PSA 84.900 ng/mL ] Impression: Adenocarcinoma of prostate,Initially diagnosed in July 2009, status post radiation. Prostate and pelvic lymph nodes in April 2010, now with recurrent with pelvic/retroperitoneal lymphadenopathy and abnormal bone scan. On Lupron at [facility] Bone scan done on 05/11/2017 showed no evidence of bony metastatic disease Rising PSA while on Lupron Started on zytiga 1000 mg po qd and prednisone 5 mg twice a day on 06/08/2017 in his PSA on June 06/2017 was 134 Fatigue probably multifactorial including hormone withdrawal recent History of fall from the tree, with injury to tailbone and right ribs Bone scan done on 07/20/2017 at [facility] showed 2 new lesions, one in the region of T2 and on in the pelvis likely skeletal metastasis. Multiple ribs lesions probably due to trauma Chest x-ray done on 09/26/2017 showed normal visualized bone structures. No acute changes bone scan done on 09/28/2007 showed metastatic bone disease is stable with no progression or improvement since 07/20/2017 CT scan of abdomen pelvis done on 07/20/2017 at [facility] showed retroperitoneal lymphadenopathy is stable or slightly smaller soft tissue nodule in the Florence's pouch is unchanged New sclerotic lesion in the right anterior sacrum at S1 -S 3 may represent new focus of bone metastases Bone scan done on 07/24/2018 showed no new focus of increased activity, overall decreased activity of previously noted metastatic/posttraumatic changes since 09/28/2017. Unchanged cervicothoracic spine increase activity, probably related to prior anterior fusion changes. CT scan of pelvis done on 07/24/2018 showed no pelvic lymphadenopathy, a small soft tissue nodule measuring 10 mm inseparable from the right iliac vein, has been present since 01/17/2017 Venous Doppler study right leg shows no DVT CT scan of abdomen pelvis done on every 2018 showed incidental left renal cyst without change Prior appendicectomy Stable right-sided pericaval lymph node. Variable appearance of blastic metastatic lesion right sacral ala and right side of S1 vertebral body bone scan done on 11/03/2018 showed increased uptake in right sacrum stable T4 lesion, and resolution of left costochondral lesions Status post radiation therapy to right sacroiliac area Follow-up bone scan done on 10/29/2019 shows no evidence of disease progression, no new area of metastatic disease Stable to slightly improved metastatic lesion involving the right posterior sacrum Additional stable to improve lesion involving the right T4 vertebral body and posterior fourth rib. Follow-up CT PET scan done on 11/10/2019 showed FDG negative, densely sclerotic osseous metastatic disease, consistent with sterilize malignancy. FDG positive lymph nodes in the right common iliac and mediastinal territories consistent with recurrent active malignancy. MRI scan of thoracic spine done on 11/07/2019 showed blastic well circumcised metastatic lesion involving T1 and T5 vertebral bodies likely previous treated, no significant edema or enhancement. No other visualized metastatic lesion. Mild chronic compression superior endplate T4 with incidental hemangioma Mr Aragon was referred to pulmonology for evaluation of mediastinal lymphadenopathy. He underwent bronchoscopy on 12/07/2019 right middle lobe. Endobronchial biopsy showed benign respiratory mucosa and cartilage. No malignancy identified. His PSA has continued to elevate and had recommended changing him to enzalutamide 160 mg p.o. daily and discontinue the Zytiga/prednisone. He will continue with the Xgeva and Lupron. Xtandi was put on hold on April 14, 2020 because of diarrhea and eventually discontinued, his PSA continues to go up while on docetaxel and on December 17, 2020 his PSA was 84.9 compared to 68.4 on November 17, at that time he was decided to discontinue Taxotere and last dose was given on November 17, 2020, his treatment was discussed and changed to Jevtana on January 08, 2021 will continue on monthly Xgeva and 3 monthly Lupron. Plan/Problems Addressed at this Visit: 1. Metastatic Prostate cancer with bone metastasis A. Proceed with cycle 3-day 1 Jevtana at same dosing. B. He will continue with Neulasta supportive care. C. He will continue with current antiemetics as they are working well. D. He is due for Depo-Lupron 22.5 mg today. His last dosing was November 17, 2020. It is planned for 3 months. E. Today's labs were reviewed in detail discussed with Mr. Aragon and a copy was given to him. WBC 8.2, hemoglobin 13.0, platelets 202,000, ANC is 7320. Potassium 3.8 creatinine 0.9 random glucose 167 LFTs are normal his PSA is improved at this 84.9. 2. Bone metastasis. A. His last denosumab dosing was on February 09, 2021. We will plan to administer this every 6 weeks as his treatment is a 3-week plan. He will be due for this at his next visit. B. He states that his right leg is moving better overall and he feels it has improved since starting treatment. 3. Follow-up plan A. He will return in 3 weeks with CBC CMP and PSA. He will be due for cycle 4 Jevtana as well as denosumab 120 mg daily for bone metastasis. He will plan to continue the growth factor support with Neulasta. B. Mr. Aragon was instructed to contact us in interim should questions or problems arise. Signed By: Nadine Garrison-, AOCNP Sae Davies MD <<Signature on File>>
== END 2021-03-18 23:59 | disposition home or self-care (01) ==
LOC: ONCMED 05:55
PROVIDERS: PCP Internal Medicine; Visit Provider Nurse Practitioner
DX: Z51.12 Encounter for antineoplastic immunotherapy (principal); C61 Malignant neoplasm of prostate; C79.51 Secondary malignant neoplasm of bone; C77.5 Secondary and unspecified malignant neoplasm of intrapelvic lymph nodes; R97.20 Elevated prostate specific antigen [PSA]; Z79.52 Long term (current) use of systemic steroids; Z79.899 Other long term (current) drug therapy
CPT/HCPCS: 80053; 84153; 85025; 96367; 96375; 96377; 96402; 96413; 99214; J1100; J1200; J2469; J2505; J3490; J7050; J9043; J9217

== ENCOUNTER 2021-04-15 05:41 | Outpatient (RCR) | payer MEDICARE, BC, SELFPAY ==
[2021-03-25 09:25] LABS: Basophils % 0.1 %; Hematocrit 40.1 % (42.0-52.0); Hemoglobin 13.1 g/dL (11.7-16.6); Lymphocytes # 1.3 10^3/uL (0.8-4.8); Lymphocytes % 13.5 %; Mean Corpuscular HGB Conc 32.7 g/dL (30.0-36.0); Mean Corpuscular Volume 97.8 fL (80-94); Monocytes # 0.8 10^3/uL (0.2-0.9); Monocytes % 8.7 %; Neutrophils # 7.15 10^3/uL (1.8-7.7); Neutrophils % 77.2 %; Nucleated Red Blood Cells % 0 %; Platelet Count 179 10^3/cmm (130-400); White Blood Count 9.3 10^3/uL (4.0-10.0)
[2021-03-25 10:01] LABS: Alanine Aminotransferase 10 U/L (0-41); Albumin Level 3.9 g/dL (3.5-5.2); Alkaline Phosphatase 46 IU/L (40-130); Anion Gap 11.9 (5-19); Aspartate Amino Transferase 11 U/L (0-40); Blood Urea Nitrogen 19 mg/dL (8-23); Calcium 9.4 mg/dL (8.5-10.5); Carbon Dioxide 24 mmol/L (22-29); Chloride 104 mmol/L (98-107); Glucose 91 mg/dL (65-115); Osmolality Calculated 284 mOsm/kg (285-295); Potassium 3.9 mmol/L (3.5-5.1); Sodium 136 mmol/L (136-145); Total Bilirubin 0.5 mg/dL (0.15-1.2); Total Protein 5.9 g/dL (6.6-8.7)
[2021-03-25] MEDS: sodium chloride 0.9% 250 ML 999 ML IV (11:55)
[2021-03-25] MEDS: palonosetron 0.25 mg/5 mL SDV IVP (11:55)
[2021-03-25] MEDS: famotidine 20 mg/2 mL INJ IVP (11:56)
[2021-03-25] MEDS: diphenhydrAMINE 50 mg/mL SDV 1mL 25 MG IVP (11:58)
[2021-03-25] MEDS: denosumab 120 mg SDV SUBCUT (12:00)
[2021-03-25] MEDS: pegfilgrastim 6 mg/0.6 mL Kit (onpro) SUBCUT (13:30)
--- NOTE | 2021-03-25 13:58 | ONC FU_ITS ---
Dr. Davies follow up note Patient: Oli Aragon Unit #: [id number]: 1935 Dicatated By: Sae Davies M.D.Date of Visit:Mar 25, 2021 Onc Med Follow-up/Prog Note History of Present Illness: Mr. Aragon is an 85-year-old gentleman with history of prostate cancer diagnosed with LUZMARIA in June 2009, with his PSA was 16.8 In July 2009, he underwent biopsy of prostate gland. The final report came back Sullivan score 9 (4+5) and Stephanie's 8 (4+4) CT scan of pelvis in showed right obturator lymph nodes. He was started on chemotherapy/biotherapy/hormonal therapy Lupron. In February 2010, followup study showed partial remission and no evidence of disease on scans. from April 2010 to May 2010, he received radiation therapy to a total of 7800 cGy to prostate and pelvic lymph nodes 4500 cGy. From January 2013 to January 2014, he was treated with Casodex with a PSA response. In January 2016 he was noted to have disease progression lymph node size was increasing on scan and PSA gone up to 12.8 On 08/04/2016 plan was to started Zytiga/prednisone , PSA 13.1. On 08/30/2016 PSA was 25.3. His last dose of Lupron was in January 2017. Initially it was given every 3 months and was changed to every 6 months with followup at [facility]. Zytiga was under consideration but because of cost it was not started as per oncology note from [facility] on 01/17/2017. CT scan of abdomen pelvis done at [facility] on 01/17/2017 showed increasing retroperitoneal and right pelvic lymphadenopathy. A bone scan done on 01/17/2017 showed new foci of uptake involving the sacrum are suspicious for skeletal metastases and new focal uptake at the anterior lateral aspect of the right fourth rib. Which is nonspecific for metastatic versus intraoral trauma. Incidental small right upper lobe pulmonary nodule is nonspecific follow-up suggested. In October 2018 Zytiga was obtained for Mr. Cortes. Mr Aragon was tolerating ADT wit lupron and Zytiga/prednisone well. Follow-up CT PET scan done on 11/10/2019 showed FDG negative, densely sclerotic osseous metastatic disease, consistent with sterilize malignancy. FDG positive lymph nodes in the right common iliac and mediastinal territories consistent with recurrent active malignancy. MRI scan of thoracic spine done on 11/07/2019 showed blastic well circumcised metastatic lesion involving T1 and T5 vertebral bodies likely previous treated, no significant edema or enhancement. No other visualized metastatic lesion. Mild chronic compression superior endplate T4 with incidental hemangioma Mr Aragon was referred to pulmonology for evaluation of mediastinal lymphadenopathy. He underwent bronchoscopy on 12/07/2019 right middle lobe. Endobronchial biopsy showed benign respiratory mucosa and cartilage. No malignancy identified. His PSA has continued to elevate and had recommended changing him to enzalutamide 160 mg p.o. daily and discontinue the Zytiga/prednisone. He will continue with the Xgeva and Lupron. started Xtandi On February 09, 2020 While waiting for repeat bronchoscopy, follow-up CT scan of chest was done on March 05, 2020 which showed stable previously described FDG avid normal and slightly prominent lymph nodes right hilum, left AP window and subcarinal hilar lymph nodes are stable. Subcarinal lymph node is slightly enlarged measuring 11 mm unchanged from previous scan done on November 10, 2019. No evidence of progressive lymphadenopathy. Mild chronic emphysematous changes seen. No acute pulmonary infiltrates. Noncalcified fibrotic appearing nodule right upper lobe measuring 4 mm. Sclerotic FDG negative lesions consistent with treated osseous metastatic disease more prominent at T1, T5 and right fifth rib. Due to persistent severe diarrhea, Xtandi was put on hold on April 14, 2020,Restarted on July 31, 2020 but with low-dose e.g. 80 mg p.o. daily Which was discontinued on August 29, 2020 because of persistent abdominal pain, diarrhea Started on systemic therapy with Taxotere on October 28, 2020 Along with 3 monthly Lupron and Xgeva While on Taxotere, patient's PSA continue to increase, On December 01, 2020 his PSA was 77.01 compared to 68.44 on November 17 and 46.62 on October 28, 2020, thus follow-up CT scan of chest abdomen pelvis was done on December 11, 2020 which shows suspicious for progression of metastatic bone disease, new lesion in his thoracic spine, ribs and right ilium. And increasing lymph nodes along the right iliac chain measuring about 2.3 x 2.4 cm. No pulmonary nodules, no increase in size of indeterminate bilateral hilar lymph nodes Bone scan done on December 11, 2020 shows mild progression of metastatic bone disease since October 2019, now new lesions in the thoracic vertebrae right ilium and posterior right fifth rib versus scapula. Guardant 360 done on December 17, 2020 showed no obvious targetable therapeutic mutations Mr Aragon tarted on Jevtana/Prednisone on January 08, 2021 along with monthly Xgeva and 3 monthly Lupron. He has tolerated it well thus far. MRI lumbar spine done on February 02, 2021 showed enhancing metastatic lesion involving right aspect of sacrum S1 unchanged since bone scan done on December 11, 2020, mass measuring 4.2 x 3.9 x 2.1 cm. Enhancing metastatic lesion involving posterior L1 spinous process is also unchanged. No evidence of enhancing epidural disease. Mild right L5-S1 foraminal narrowing. , patient is status post radiation therapy to sacrum in the past . Mr. Aragon has continued treatment with Jevtana, denosumab and Depo-Lupron. Came for follow-up, feeling much better, right leg pain and heaviness is resolved, as well as right hip pain is improving, patient is tolerating systemic therapy with Jevtana well along with prednisone, monthly Xgeva and 3 monthly Lupron Medications: Ambien 1 Tablet (of 5 mg) Oral at bedtime, diphenhydrAMINE HCl (25 mg) Capsule Oral at bedtime PRN, Mirtazapine 1 Tablet (of 15 mg) Oral at bedtime PRN, Ondansetron HCl 1 Tablet (of 4 mg) Oral q 6 hours PRN, predniSONE 1 Tablet (of 10 mg) Oral daily, Tums 1 (500 mg) Tablet, chewable Oral PRN Allergies: No Known Allergies. Review of Systems: Review of Systems is not available for this patient. Vital Signs: Performed on Mar 25, 2021 11:19 Height - 76.00 in Weight - 172.6 lbs (HIGH) BSA - 2.08 sq.m BMI - 21.01 Temperature - 97.5 F (LOW) Pulse - 77 /min Respiration - 18 /min BP - 104/67 mm(hg) O2 Sat - 97 % Pain - 0 Fatigue - 0 Performance Status: 0 - Fully active, able to carry on all predisease activities without restrictions. (ECOG) Physical Examination: ENMT - No mouth sores, no thrush, no jaundice, Respiratory - Lungs are clear to auscultation, Cardiovascular - Regular rate and rhythm of heart, Abdomen - Soft, bowel sounds present, Extremities - No visible edema. Lab/Imaging: Test performed on Mar 02, 2021 08:53 Sodium 136 mmol/L Potassium 3.8 mmol/L Chloride 104 mmol/L CO2 19 mmol/L Anion Gap 16.8 BUN 16 mg/dL Creatinine 0.9 mg/dL Cr Clearance (Est) 69.5400 mL/min Glucose 167 mg/dL Osmolality - Calculated 287 mOsm/kg Calcium 8.9 mg/dL Protein, Total 6.0 g/dL Albumin 4.0 g/dL Globulin 2.0 g/dL Bilirubin, Total 0.3 mg/dL ALT (SGPT) 10 U/L AST (SGOT) 12 U/L Alkaline Phosphatase 71 IU/L WBC 8.2 10 3/uL RBC 4.09 10 6/uL HGB 13.0 g/dL HCT 40.0 % MCV 97.8 fL MCH 31.8 pg MCHC 32.5 g/dL RDW 14.4 % Platelet Count 202 10 3/cmm MPV 10.0 fL Neutrophils 7.32 10 3/uL Lymphocytes 0.6 10 3/uL Monocytes 0.3 10 3/uL Eosinophils 0.0 10 3/uL Basophils 0.0 10 3/uL Neutrophil % 89.0 % Lymphocyte % 7.0 % Monocyte % 3.5 % Eosinophil % 0.0 % Basophils % 0.0 % NRBC % 0 % PSA 84.900 ng/mL Test performed on Jan 07, 2021 11:34 Manual Lymphocytes 80.7 % Manual Monocytes 2.4 % Manual Eosinophils 0.3 % Manual Basophils 0.4 % NRBCs 0.0 /100 WBC Impression: Adenocarcinoma of prostate,Initially diagnosed in July 2009, status post radiation. Prostate and pelvic lymph nodes in April 2010, now with recurrent with pelvic/retroperitoneal lymphadenopathy and abnormal bone scan. On Lupron at [facility] Bone scan done on 05/11/2017 showed no evidence of bony metastatic disease Rising PSA while on Lupron Started on zytiga 1000 mg po qd and prednisone 5 mg twice a day on 06/08/2017 in his PSA on June 06/2017 was 134 Fatigue probably multifactorial including hormone withdrawal recent History of fall from the tree, with injury to tailbone and right ribs Bone scan done on 07/20/2017 at [facility] showed 2 new lesions, one in the region of T2 and on in the pelvis likely skeletal metastasis. Multiple ribs lesions probably due to trauma Chest x-ray done on 09/26/2017 showed normal visualized bone structures. No acute changes bone scan done on 09/28/2007 showed metastatic bone disease is stable with no progression or improvement since 07/20/2017 CT scan of abdomen pelvis done on 07/20/2017 at [facility] showed retroperitoneal lymphadenopathy is stable or slightly smaller soft tissue nodule in the Florence's pouch is unchanged New sclerotic lesion in the right anterior sacrum at S1 -S 3 may represent new focus of bone metastases Bone scan done on 07/24/2018 showed no new focus of increased activity, overall decreased activity of previously noted metastatic/posttraumatic changes since 09/28/2017. Unchanged cervicothoracic spine increase activity, probably related to prior anterior fusion changes. CT scan of pelvis done on 07/24/2018 showed no pelvic lymphadenopathy, a small soft tissue nodule measuring 10 mm inseparable from the right iliac vein, has been present since 01/17/2017 Venous Doppler study right leg shows no DVT CT scan of abdomen pelvis done on every 2018 showed incidental left renal cyst without change Prior appendicectomy Stable right-sided pericaval lymph node. Variable appearance of blastic metastatic lesion right sacral ala and right side of S1 vertebral body bone scan done on 11/03/2018 showed increased uptake in right sacrum stable T4 lesion, and resolution of left costochondral lesions Status post radiation therapy to right sacroiliac area Follow-up bone scan done on 10/29/2019 shows no evidence of disease progression, no new area of metastatic disease Stable to slightly improved metastatic lesion involving the right posterior sacrum Additional stable to improve lesion involving the right T4 vertebral body and posterior fourth rib. Follow-up CT PET scan done on 11/10/2019 showed FDG negative, densely sclerotic osseous metastatic disease, consistent with sterilize malignancy. FDG positive lymph nodes in the right common iliac and mediastinal territories consistent with recurrent active malignancy. MRI scan of thoracic spine done on 11/07/2019 showed blastic well circumcised metastatic lesion involving T1 and T5 vertebral bodies likely previous treated, no significant edema or enhancement. No other visualized metastatic lesion. Mild chronic compression superior endplate T4 with incidental hemangioma Mr Aragon was referred to pulmonology for evaluation of mediastinal lymphadenopathy. He underwent bronchoscopy on 12/07/2019 right middle lobe. Endobronchial biopsy showed benign respiratory mucosa and cartilage. No malignancy identified. His PSA has continued to elevate and had recommended changing him to enzalutamide 160 mg p.o. daily and discontinue the Zytiga/prednisone. He will continue with the Xgeva and Lupron. Xtandi was put on hold on April 14, 2020 because of diarrhea and eventually discontinued, his PSA continues to go up while on docetaxel and on December 17, 2020 his PSA was 84.9 compared to 68.4 on November 17, at that time he was decided to discontinue Taxotere and last dose was given on November 17, 2020, his treatment was discussed and changed to Jevtana on January 08, 2021 will continue on monthly Xgeva and 3 monthly Lupron. Plan: Discussed with patient regarding his labs white blood count 9.3 hemoglobin 13.1 hematocrit 40.1 platelets 179,000 CMP within normal limits PSA 90.82 compared to 84.90 previously Clinically, patient is doing well, tolerating palliative therapy with Jevtana well, excellent palliative results but his PSA is persistently elevated rather gone up slightly, will proceed with the next cycle of Jevtana today and then consider follow-up CT PET scan prior to his return visit in 3 weeks with CBC CMP and PSA, if PET scan shows no soft tissue disease or only bone mets, and PSA continue to go up or persist, may consider Xofigo based therapy. He will also receive his monthly dose of Xgeva today and then he will return to clinic in 3 weeks as mentioned above with CBC CMP and PSA and follow-up CT PET scan to assess disease status Signed By: Sae Davies M.D. <<Signature on File>>
[2021-03-31 12:43] LABS: Basophils % 0.1 %; Eosinophils # 0.1 10^3/uL (0.0-0.8); Eosinophils % 0.3 %; Hematocrit 41.1 % (42.0-52.0); Hemoglobin 13.1 g/dL (11.7-16.6); Lymphocytes # 1.4 10^3/uL (0.8-4.8); Lymphocytes % 5.7 %; Mean Corpuscular HGB Conc 31.9 g/dL (30.0-36.0); Mean Corpuscular Hemoglobin 32.3 pg (28.0-34.0); Mean Corpuscular Volume 101.2 fL (80-94); Mean Platelet Volume 10.6 fL (7.4-10.4); Monocytes # 1.8 10^3/uL (0.2-0.9); Monocytes % 7.5 %; Neutrophils # 19.53 10^3/uL (1.8-7.7); Neutrophils % 81.2 %; Nucleated Red Blood Cells % 0 %; Platelet Count 143 10^3/cmm (130-400); Red Blood Count 4.06 10^6/uL (4.1-5.3); Red Cell Distribution Width 14.7 % (12.1-15.1)
[2021-03-31 13:13] LABS: Alanine Aminotransferase 9 U/L (0-41); Albumin Level 3.7 g/dL (3.5-5.2); Alkaline Phosphatase 120 IU/L (40-130); Anion Gap 13.4 (5-19); Aspartate Amino Transferase 13 U/L (0-40); Blood Urea Nitrogen 14 mg/dL (8-23); Calcium 8.2 mg/dL (8.5-10.5); Carbon Dioxide 25 mmol/L (22-29); Chloride 106 mmol/L (98-107); Globulin 2.1 g/dL (1.3-4.6); Glucose 102 mg/dL (65-115); Osmolality Calculated 291 mOsm/kg (285-295); Potassium 4.4 mmol/L (3.5-5.1); Sodium 140 mmol/L (136-145); Total Bilirubin 0.3 mg/dL (0.15-1.2); Total Protein 5.8 g/dL (6.6-8.7)
[2021-03-31 13:24] LABS: Slide Review Slide Review Perform
--- NOTE | 2021-04-05 17:12 | ONC FU_ITS ---
Dr. Davies follow up note Patient: Oli Aragon Unit #: [id number]: 1935 Dicatated By: Sae Davies M.D.Date of Visit:Mar 31, 2021 Onc Med Follow-up/Prog Note History of Present Illness: Mr. Aragon is an 85-year-old gentleman with history of prostate cancer diagnosed with LUZMARIA in June 2009, with his PSA was 16.8 In July 2009, he underwent biopsy of prostate gland. The final report came back Hornbeak score 9 (4+5) and Stephanie's 8 (4+4) CT scan of pelvis in showed right obturator lymph nodes. He was started on chemotherapy/biotherapy/hormonal therapy Lupron. In February 2010, followup study showed partial remission and no evidence of disease on scans. from April 2010 to May 2010, he received radiation therapy to a total of 7800 cGy to prostate and pelvic lymph nodes 4500 cGy. From January 2013 to January 2014, he was treated with Casodex with a PSA response. In January 2016 he was noted to have disease progression lymph node size was increasing on scan and PSA gone up to 12.8 On 08/04/2016 plan was to started Zytiga/prednisone , PSA 13.1. On 08/30/2016 PSA was 25.3. His last dose of Lupron was in January 2017. Initially it was given every 3 months and was changed to every 6 months with followup at [facility]. Zytiga was under consideration but because of cost it was not started as per oncology note from [facility] on 01/17/2017. CT scan of abdomen pelvis done at [facility] on 01/17/2017 showed increasing retroperitoneal and right pelvic lymphadenopathy. A bone scan done on 01/17/2017 showed new foci of uptake involving the sacrum are suspicious for skeletal metastases and new focal uptake at the anterior lateral aspect of the right fourth rib. Which is nonspecific for metastatic versus intraoral trauma. Incidental small right upper lobe pulmonary nodule is nonspecific follow-up suggested. In October 2018 Zytiga was obtained for Mr. Cortes. Mr Aragon was tolerating ADT wit lupron and Zytiga/prednisone well. Follow-up CT PET scan done on 11/10/2019 showed FDG negative, densely sclerotic osseous metastatic disease, consistent with sterilize malignancy. FDG positive lymph nodes in the right common iliac and mediastinal territories consistent with recurrent active malignancy. MRI scan of thoracic spine done on 11/07/2019 showed blastic well circumcised metastatic lesion involving T1 and T5 vertebral bodies likely previous treated, no significant edema or enhancement. No other visualized metastatic lesion. Mild chronic compression superior endplate T4 with incidental hemangioma Mr Aragon was referred to pulmonology for evaluation of mediastinal lymphadenopathy. He underwent bronchoscopy on 12/07/2019 right middle lobe. Endobronchial biopsy showed benign respiratory mucosa and cartilage. No malignancy identified. His PSA has continued to elevate and had recommended changing him to enzalutamide 160 mg p.o. daily and discontinue the Zytiga/prednisone. He will continue with the Xgeva and Lupron. started Xtandi On February 09, 2020 While waiting for repeat bronchoscopy, follow-up CT scan of chest was done on March 05, 2020 which showed stable previously described FDG avid normal and slightly prominent lymph nodes right hilum, left AP window and subcarinal hilar lymph nodes are stable. Subcarinal lymph node is slightly enlarged measuring 11 mm unchanged from previous scan done on November 10, 2019. No evidence of progressive lymphadenopathy. Mild chronic emphysematous changes seen. No acute pulmonary infiltrates. Noncalcified fibrotic appearing nodule right upper lobe measuring 4 mm. Sclerotic FDG negative lesions consistent with treated osseous metastatic disease more prominent at T1, T5 and right fifth rib. Due to persistent severe diarrhea, Xtandi was put on hold on April 14, 2020,Restarted on July 31, 2020 but with low-dose e.g. 80 mg p.o. daily Which was discontinued on August 29, 2020 because of persistent abdominal pain, diarrhea Started on systemic therapy with Taxotere on October 28, 2020 Along with 3 monthly Lupron and Xgeva While on Taxotere, patient's PSA continue to increase, On December 01, 2020 his PSA was 77.01 compared to 68.44 on November 17 and 46.62 on October 28, 2020, thus follow-up CT scan of chest abdomen pelvis was done on December 11, 2020 which shows suspicious for progression of metastatic bone disease, new lesion in his thoracic spine, ribs and right ilium. And increasing lymph nodes along the right iliac chain measuring about 2.3 x 2.4 cm. No pulmonary nodules, no increase in size of indeterminate bilateral hilar lymph nodes Bone scan done on December 11, 2020 shows mild progression of metastatic bone disease since October 2019, now new lesions in the thoracic vertebrae right ilium and posterior right fifth rib versus scapula. Guardant 360 done on December 17, 2020 showed no obvious targetable therapeutic mutations Mr Aragon tarted on Jevtana/Prednisone on January 08, 2021 along with monthly Xgeva and 3 monthly Lupron. He has tolerated it well thus far. MRI lumbar spine done on February 02, 2021 showed enhancing metastatic lesion involving right aspect of sacrum S1 unchanged since bone scan done on December 11, 2020, mass measuring 4.2 x 3.9 x 2.1 cm. Enhancing metastatic lesion involving posterior L1 spinous process is also unchanged. No evidence of enhancing epidural disease. Mild right L5-S1 foraminal narrowing. , patient is status post radiation therapy to sacrum in the past . Mr. Aragon has continued treatment with Jevtana, denosumab and Depo-Lupron. Came for follow-up, patient had episode of self-limiting fresh blood per rectum x1, denies any abdominal pain denies any nausea or vomiting denies any diarrhea or constipation denies any jaundice, patient could not quantify blood as it was mixed in the water in the commode, as per patient it just happened 1 time but no associated abdominal pain, no pain in the rectal area, denies any mouth sores denies any jaundice denies any hemoptysis or hematemesis denies any shortness of breath or palpitation denies any new bony pains Medications: Ambien 1 Tablet (of 5 mg) Oral at bedtime, diphenhydrAMINE HCl (25 mg) Capsule Oral at bedtime PRN, Lansoprazole (30 mg) Capsule Delayed Release Oral daily, Mirtazapine 1 Tablet (of 15 mg) Oral at bedtime PRN, Ondansetron HCl 1 Tablet (of 4 mg) Oral q 6 hours PRN, predniSONE 1 Tablet (of 10 mg) Oral daily, Tums 1 (500 mg) Tablet, chewable Oral PRN Allergies: No Known Allergies. Review of Systems: Review of Systems is not available for this patient. Vital Signs: Performed on Mar 31, 2021 16:11 Height - 76.00 in Weight - 176 lbs (HIGH) BSA - 2.10 sq.m BMI - 21.42 Temperature - 98.7 F Pulse - 74 /min Respiration - 18 /min BP - 138/76 mm(hg) O2 Sat - 97 % Pain - 4 Fatigue - 6 Performance Status: 0 - Fully active, able to carry on all predisease activities without restrictions. (ECOG) Physical Examination: ENMT - No mouth sores, no thrush, no jaundice, Respiratory - Lungs are clear to auscultation, Cardiovascular - Regular rate and rhythm of heart, Abdomen - Soft, bowel sounds present, Extremities - No visible edema or rash. Lab/Imaging: Test performed on Mar 02, 2021 08:53 Sodium 136 mmol/L Potassium 3.8 mmol/L Chloride 104 mmol/L CO2 19 mmol/L Anion Gap 16.8 BUN 16 mg/dL Creatinine 0.9 mg/dL Cr Clearance (Est) 69.5400 mL/min Glucose 167 mg/dL Osmolality - Calculated 287 mOsm/kg Calcium 8.9 mg/dL Protein, Total 6.0 g/dL Albumin 4.0 g/dL Globulin 2.0 g/dL Bilirubin, Total 0.3 mg/dL ALT (SGPT) 10 U/L AST (SGOT) 12 U/L Alkaline Phosphatase 71 IU/L WBC 8.2 10 3/uL RBC 4.09 10 6/uL HGB 13.0 g/dL HCT 40.0 % MCV 97.8 fL MCH 31.8 pg MCHC 32.5 g/dL RDW 14.4 % Platelet Count 202 10 3/cmm MPV 10.0 fL Neutrophils 7.32 10 3/uL Lymphocytes 0.6 10 3/uL Monocytes 0.3 10 3/uL Eosinophils 0.0 10 3/uL Basophils 0.0 10 3/uL Neutrophil % 89.0 % Lymphocyte % 7.0 % Monocyte % 3.5 % Eosinophil % 0.0 % Basophils % 0.0 % NRBC % 0 % PSA 84.900 ng/mL Test performed on Jan 07, 2021 11:34 Manual Lymphocytes 80.7 % Manual Monocytes 2.4 % Manual Eosinophils 0.3 % Manual Basophils 0.4 % NRBCs 0.0 /100 WBC Impression: Adenocarcinoma of prostate,Initially diagnosed in July 2009, status post radiation. Prostate and pelvic lymph nodes in April 2010, now with recurrent with pelvic/retroperitoneal lymphadenopathy and abnormal bone scan. On Lupron at [facility] Bone scan done on 05/11/2017 showed no evidence of bony metastatic disease Rising PSA while on Lupron Started on zytiga 1000 mg po qd and prednisone 5 mg twice a day on 06/08/2017 in his PSA on June 06/2017 was 134 Fatigue probably multifactorial including hormone withdrawal recent History of fall from the tree, with injury to tailbone and right ribs Bone scan done on 07/20/2017 at [facility] showed 2 new lesions, one in the region of T2 and on in the pelvis likely skeletal metastasis. Multiple ribs lesions probably due to trauma Chest x-ray done on 09/26/2017 showed normal visualized bone structures. No acute changes bone scan done on 09/28/2007 showed metastatic bone disease is stable with no progression or improvement since 07/20/2017 CT scan of abdomen pelvis done on 07/20/2017 at [facility] showed retroperitoneal lymphadenopathy is stable or slightly smaller soft tissue nodule in the Florence's pouch is unchanged New sclerotic lesion in the right anterior sacrum at S1 -S 3 may represent new focus of bone metastases Bone scan done on 07/24/2018 showed no new focus of increased activity, overall decreased activity of previously noted metastatic/posttraumatic changes since 09/28/2017. Unchanged cervicothoracic spine increase activity, probably related to prior anterior fusion changes. CT scan of pelvis done on 07/24/2018 showed no pelvic lymphadenopathy, a small soft tissue nodule measuring 10 mm inseparable from the right iliac vein, has been present since 01/17/2017 Venous Doppler study right leg shows no DVT CT scan of abdomen pelvis done on every 2018 showed incidental left renal cyst without change Prior appendicectomy Stable right-sided pericaval lymph node. Variable appearance of blastic metastatic lesion right sacral ala and right side of S1 vertebral body bone scan done on 11/03/2018 showed increased uptake in right sacrum stable T4 lesion, and resolution of left costochondral lesions Status post radiation therapy to right sacroiliac area Follow-up bone scan done on 10/29/2019 shows no evidence of disease progression, no new area of metastatic disease Stable to slightly improved metastatic lesion involving the right posterior sacrum Additional stable to improve lesion involving the right T4 vertebral body and posterior fourth rib. Follow-up CT PET scan done on 11/10/2019 showed FDG negative, densely sclerotic osseous metastatic disease, consistent with sterilize malignancy. FDG positive lymph nodes in the right common iliac and mediastinal territories consistent with recurrent active malignancy. MRI scan of thoracic spine done on 11/07/2019 showed blastic well circumcised metastatic lesion involving T1 and T5 vertebral bodies likely previous treated, no significant edema or enhancement. No other visualized metastatic lesion. Mild chronic compression superior endplate T4 with incidental hemangioma Mr Aragon was referred to pulmonology for evaluation of mediastinal lymphadenopathy. He underwent bronchoscopy on 12/07/2019 right middle lobe. Endobronchial biopsy showed benign respiratory mucosa and cartilage. No malignancy identified. His PSA has continued to elevate and had recommended changing him to enzalutamide 160 mg p.o. daily and discontinue the Zytiga/prednisone. He will continue with the Xgeva and Lupron. Xtandi was put on hold on April 14, 2020 because of diarrhea and eventually discontinued, his PSA continues to go up while on docetaxel and on December 17, 2020 his PSA was 84.9 compared to 68.4 on November 17, at that time he was decided to discontinue Taxotere and last dose was given on November 17, 2020, his treatment was discussed and changed to Jevtana on January 08, 2021 will continue on monthly Xgeva and 3 monthly Lupron. Follow-up CT PET scan done on March 28, 2021 shows new sclerotic osseous metastatic disease in the right iliac, T10, T11 bone other lesions in T1, T5 and S1 locations are stable, index right common iliac lymph node seen on prior scan done in October 2019 showed SUV has improved and cluster of lymph node in the right common iliac territory has improved mediastinal lymph nodes also shows improvement, Based on stable findings on CT PET scan although persistently elevated PSA around 90, he was decided to continue with Jevtana/Lupron/Xgeva Plan: Discussed with patient regarding his labs white blood count 24, hemoglobin 13.1 g compared to 13.1 g previously hematocrit 41.1 platelets 143,000 CMP within normal limits and his follow-up CT PET scan which was done on March 28, 2021 showed FDG positive mediastinal and right pelvic lymph nodes are improved from prior study and new sclerotic osseous metastatic disease with stable old osseous metastatic disease Clinically, patient is doing well with no new signs symptom, episode of bleeding per rectum, was self-limiting as per patient it happened only 1 time and after that no more episodes, no associated symptoms his lab work-up showed hemoglobin is in normal range and stable when compared with CBC from March 25, 2021 e.g. prior to the episode of rectal bleed, etiology of rectal bleed is unclear could be from internal hemorrhoids or diverticula, if recur, may consider referral to GI for evaluation on the other hand as far as prostate cancer is concerned his PSA is still elevated and stable around 90 but PET scan shows improvement in the mediastinal and pelvic lymph nodes but possible new sclerotic bone lesion has recommended bone scan for better evaluation, patient is tolerating Jevtana well along with Lupron and Xgeva, with excellent quality of life, although his PSA is persistently elevated but PET scan shows no obvious disease progression, considering quality of life and tolerating Jevtana well otherwise, will continue with same treatment and patient will return to clinic in 2 weeks with CBC CMP and for next scheduled dose of Jevtana. Patient was advised in case he has another episode of fresh bleeding per rectum, he need to call us or go to hospital. Signed By: Sae Davies M.D. <<Signature on File>>
[2021-04-15 08:30] LABS: Hematocrit 37.7 % (42.0-52.0); Hemoglobin 12.2 g/dL (11.7-16.6); Lymphocytes # 0.6 10^3/uL (0.8-4.8); Lymphocytes % 10.7 %; Mean Corpuscular HGB Conc 32.4 g/dL (30.0-36.0); Mean Corpuscular Hemoglobin 32.3 pg (28.0-34.0); Mean Corpuscular Volume 99.7 fL (80-94); Mean Platelet Volume 10.6 fL (7.4-10.4); Monocytes # 0.1 10^3/uL (0.2-0.9); Monocytes % 1.9 %; Neutrophils # 5.05 10^3/uL (1.8-7.7); Neutrophils % 87.1 %; Nucleated Red Blood Cells % 0 %; Platelet Count 167 10^3/cmm (130-400); Red Blood Count 3.78 10^6/uL (4.1-5.3); Red Cell Distribution Width 14.9 % (12.1-15.1); White Blood Count 5.8 10^3/uL (4.0-10.0)
[2021-04-15 09:25] LABS: Alanine Aminotransferase 8 U/L (0-41); Albumin Level 3.8 g/dL (3.5-5.2); Alkaline Phosphatase 59 IU/L (40-130); Anion Gap 13.1 (5-19); Aspartate Amino Transferase 11 U/L (0-40); Blood Urea Nitrogen 18 mg/dL (8-23); Calcium 8.4 mg/dL (8.5-10.5); Carbon Dioxide 23 mmol/L (22-29); Chloride 104 mmol/L (98-107); Globulin 2.1 g/dL (1.3-4.6); Glucose 118 mg/dL (65-115); Osmolality Calculated 285 mOsm/kg (285-295); Potassium 4.1 mmol/L (3.5-5.1); Sodium 136 mmol/L (136-145); Total Bilirubin 0.5 mg/dL (0.15-1.2); Total Protein 5.9 g/dL (6.6-8.7)
[2021-04-15] MEDS: sodium chloride 0.9% 250 ML 75 ML IV (10:35)
[2021-04-15] MEDS: palonosetron 0.25 mg/5 mL SDV IV (10:35)
[2021-04-15] MEDS: famotidine 20 mg/2 mL INJ IVP (10:36)
[2021-04-15] MEDS: diphenhydrAMINE 50 mg/mL SDV 1mL 25 MG IV (10:38)
--- NOTE | 2021-04-15 11:52 | ONC FU_ITS ---
Dr. Davies follow up note Patient: Oli Aragon Unit #: [id number]: [id number] Dicatated By: Sae Davies M.D.Date of Visit:Apr 15, 2021 Onc Med Follow-up/Prog Note History of Present Illness: Mr. Aragon is an 85-year-old gentleman with history of prostate cancer diagnosed with LUZMARIA in June 2009, with his PSA was 16.8 In July 2009, he underwent biopsy of prostate gland. The final report came back Rosepine score 9 (4+5) and Stephanie's 8 (4+4) CT scan of pelvis in showed right obturator lymph nodes. He was started on chemotherapy/biotherapy/hormonal therapy Lupron. In February 2010, followup study showed partial remission and no evidence of disease on scans. from April 2010 to May 2010, he received radiation therapy to a total of 7800 cGy to prostate and pelvic lymph nodes 4500 cGy. From January 2013 to January 2014, he was treated with Casodex with a PSA response. In January 2016 he was noted to have disease progression lymph node size was increasing on scan and PSA gone up to 12.8 On 08/04/2016 plan was to started Zytiga/prednisone , PSA 13.1. On 08/30/2016 PSA was 25.3. His last dose of Lupron was in January 2017. Initially it was given every 3 months and was changed to every 6 months with followup at [facility]. Zytiga was under consideration but because of cost it was not started as per oncology note from [facility] on 01/17/2017. CT scan of abdomen pelvis done at [facility] on 01/17/2017 showed increasing retroperitoneal and right pelvic lymphadenopathy. A bone scan done on 01/17/2017 showed new foci of uptake involving the sacrum are suspicious for skeletal metastases and new focal uptake at the anterior lateral aspect of the right fourth rib. Which is nonspecific for metastatic versus intraoral trauma. Incidental small right upper lobe pulmonary nodule is nonspecific follow-up suggested. In October 2018 Zytiga was obtained for Mr. Cortes. Mr Aragon was tolerating ADT wit lupron and Zytiga/prednisone well. Follow-up CT PET scan done on 11/10/2019 showed FDG negative, densely sclerotic osseous metastatic disease, consistent with sterilize malignancy. FDG positive lymph nodes in the right common iliac and mediastinal territories consistent with recurrent active malignancy. MRI scan of thoracic spine done on 11/07/2019 showed blastic well circumcised metastatic lesion involving T1 and T5 vertebral bodies likely previous treated, no significant edema or enhancement. No other visualized metastatic lesion. Mild chronic compression superior endplate T4 with incidental hemangioma Mr Aragon was referred to pulmonology for evaluation of mediastinal lymphadenopathy. He underwent bronchoscopy on 12/07/2019 right middle lobe. Endobronchial biopsy showed benign respiratory mucosa and cartilage. No malignancy identified. His PSA has continued to elevate and had recommended changing him to enzalutamide 160 mg p.o. daily and discontinue the Zytiga/prednisone. He will continue with the Xgeva and Lupron. started Xtandi On February 09, 2020 While waiting for repeat bronchoscopy, follow-up CT scan of chest was done on March 05, 2020 which showed stable previously described FDG avid normal and slightly prominent lymph nodes right hilum, left AP window and subcarinal hilar lymph nodes are stable. Subcarinal lymph node is slightly enlarged measuring 11 mm unchanged from previous scan done on November 10, 2019. No evidence of progressive lymphadenopathy. Mild chronic emphysematous changes seen. No acute pulmonary infiltrates. Noncalcified fibrotic appearing nodule right upper lobe measuring 4 mm. Sclerotic FDG negative lesions consistent with treated osseous metastatic disease more prominent at T1, T5 and right fifth rib. Due to persistent severe diarrhea, Xtandi was put on hold on April 14, 2020,Restarted on July 31, 2020 but with low-dose e.g. 80 mg p.o. daily Which was discontinued on August 29, 2020 because of persistent abdominal pain, diarrhea Started on systemic therapy with Taxotere on October 28, 2020 Along with 3 monthly Lupron and Xgeva While on Taxotere, patient's PSA continue to increase, On December 01, 2020 his PSA was 77.01 compared to 68.44 on November 17 and 46.62 on October 28, 2020, thus follow-up CT scan of chest abdomen pelvis was done on December 11, 2020 which shows suspicious for progression of metastatic bone disease, new lesion in his thoracic spine, ribs and right ilium. And increasing lymph nodes along the right iliac chain measuring about 2.3 x 2.4 cm. No pulmonary nodules, no increase in size of indeterminate bilateral hilar lymph nodes Bone scan done on December 11, 2020 shows mild progression of metastatic bone disease since October 2019, now new lesions in the thoracic vertebrae right ilium and posterior right fifth rib versus scapula. Guardant 360 done on December 17, 2020 showed no obvious targetable therapeutic mutations Mr Aragon tarted on Jevtana/Prednisone on January 08, 2021 along with monthly Xgeva and 3 monthly Lupron. He has tolerated it well thus far. MRI lumbar spine done on February 02, 2021 showed enhancing metastatic lesion involving right aspect of sacrum S1 unchanged since bone scan done on December 11, 2020, mass measuring 4.2 x 3.9 x 2.1 cm. Enhancing metastatic lesion involving posterior L1 spinous process is also unchanged. No evidence of enhancing epidural disease. Mild right L5-S1 foraminal narrowing. , patient is status post radiation therapy to sacrum in the past . Mr. Aragon has continued treatment with Jevtana, denosumab and Depo-Lupron. Follow-up CT PET scan done on March 28, 2021 showed the index right iliac lymph node seen on prior studies unchanged in size, currently measuring 2 cm but SUV have improved to 5.9 from 11.1 previously. Similarly a cluster of nodes in the right common iliac territories slightly improved. Mediastinal lymph nodes seen on prior studies are still FDG positive but are improved since October 2019 and are again noted in subcarinal, subaortic, right paratracheal, right paraesophageal, bilateral hilar territory. 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 Overall patient is happy with quality of life. Denies any fever chills denies any nausea or vomiting denies any diarrhea constipation denies any hemoptysis or hematemesis denies any peripheral numbness denies any new bony pain, tolerating Jevtana/Lupron/Xgeva well otherwise Medications: Ambien 1 Tablet (of 5 mg) Oral at bedtime, diphenhydrAMINE HCl (25 mg) Capsule Oral at bedtime PRN, Lansoprazole (30 mg) Capsule Delayed Release Oral daily, Mirtazapine 1 Tablet (of 15 mg) Oral at bedtime PRN, Ondansetron HCl 1 Tablet (of 4 mg) Oral q 6 hours PRN, predniSONE 1 Tablet (of 10 mg) Oral daily Allergies: No Known Allergies. Review of Systems: Review of Systems is not available for this patient. Vital Signs: Performed on Apr 15, 2021 09:36 Height - 76.00 in Weight - 174.4 lbs (LOW) BSA - 2.09 sq.m BMI - 21.23 Temperature - 97.7 F (LOW) Pulse - 79 /min Respiration - 18 /min BP - 115/68 mm(hg) O2 Sat - 97 % Pain - 0 Performance Status: 0 - Fully active, able to carry on all predisease activities without restrictions. (ECOG) Physical Examination: ENMT - No mouth sores, no thrush, no jaundice, Respiratory - Lungs are clear to auscultation, Cardiovascular - Regular rate and rhythm of heart, Abdomen - Soft, bowel sounds present, Extremities - No visible edema. Lab/Imaging: Test performed on Mar 02, 2021 08:53 Sodium 136 mmol/L Potassium 3.8 mmol/L Chloride 104 mmol/L CO2 19 mmol/L Anion Gap 16.8 BUN 16 mg/dL Creatinine 0.9 mg/dL Cr Clearance (Est) 69.5400 mL/min Glucose 167 mg/dL Osmolality - Calculated 287 mOsm/kg Calcium 8.9 mg/dL Protein, Total 6.0 g/dL Albumin 4.0 g/dL Globulin 2.0 g/dL Bilirubin, Total 0.3 mg/dL ALT (SGPT) 10 U/L AST (SGOT) 12 U/L Alkaline Phosphatase 71 IU/L WBC 8.2 10 3/uL RBC 4.09 10 6/uL HGB 13.0 g/dL HCT 40.0 % MCV 97.8 fL MCH 31.8 pg MCHC 32.5 g/dL RDW 14.4 % Platelet Count 202 10 3/cmm MPV 10.0 fL Neutrophils 7.32 10 3/uL Lymphocytes 0.6 10 3/uL Monocytes 0.3 10 3/uL Eosinophils 0.0 10 3/uL Basophils 0.0 10 3/uL Neutrophil % 89.0 % Lymphocyte % 7.0 % Monocyte % 3.5 % Eosinophil % 0.0 % Basophils % 0.0 % NRBC % 0 % PSA 84.900 ng/mL Test performed on Jan 07, 2021 11:34 Manual Lymphocytes 80.7 % Manual Monocytes 2.4 % Manual Eosinophils 0.3 % Manual Basophils 0.4 % NRBCs 0.0 /100 WBC Impression: Adenocarcinoma of prostate,Initially diagnosed in July 2009, status post radiation. Prostate and pelvic lymph nodes in April 2010, now with recurrent with pelvic/retroperitoneal lymphadenopathy and abnormal bone scan. On Lupron at [facility] Bone scan done on 05/11/2017 showed no evidence of bony metastatic disease Rising PSA while on Lupron Started on zytiga 1000 mg po qd and prednisone 5 mg twice a day on 06/08/2017 in his PSA on June 06/2017 was 134 Fatigue probably multifactorial including hormone withdrawal recent History of fall from the tree, with injury to tailbone and right ribs Bone scan done on 07/20/2017 at [facility] showed 2 new lesions, one in the region of T2 and on in the pelvis likely skeletal metastasis. Multiple ribs lesions probably due to trauma Chest x-ray done on 09/26/2017 showed normal visualized bone structures. No acute changes bone scan done on 09/28/2007 showed metastatic bone disease is stable with no progression or improvement since 07/20/2017 CT scan of abdomen pelvis done on 07/20/2017 at [facility] showed retroperitoneal lymphadenopathy is stable or slightly smaller soft tissue nodule in the Florence's pouch is unchanged New sclerotic lesion in the right anterior sacrum at S1 -S 3 may represent new focus of bone metastases Bone scan done on 07/24/2018 showed no new focus of increased activity, overall decreased activity of previously noted metastatic/posttraumatic changes since 09/28/2017. Unchanged cervicothoracic spine increase activity, probably related to prior anterior fusion changes. CT scan of pelvis done on 07/24/2018 showed no pelvic lymphadenopathy, a small soft tissue nodule measuring 10 mm inseparable from the right iliac vein, has been present since 01/17/2017 Venous Doppler study right leg shows no DVT CT scan of abdomen pelvis done on 2018 showed incidental left renal cyst without change Prior appendicectomy Stable right-sided pericaval lymph node. Variable appearance of blastic metastatic lesion right sacral ala and right side of S1 vertebral body bone scan done on 11/03/2018 showed increased uptake in right sacrum stable T4 lesion, and resolution of left costochondral lesions Status post radiation therapy to right sacroiliac area Follow-up bone scan done on 10/29/2019 shows no evidence of disease progression, no new area of metastatic disease Stable to slightly improved metastatic lesion involving the right posterior sacrum Additional stable to improve lesion involving the right T4 vertebral body and posterior fourth rib. Follow-up CT PET scan done on 11/10/2019 showed FDG negative, densely sclerotic osseous metastatic disease, consistent with sterilize malignancy. FDG positive lymph nodes in the right common iliac and mediastinal territories consistent with recurrent active malignancy. MRI scan of thoracic spine done on 11/07/2019 showed blastic well circumcised metastatic lesion involving T1 and T5 vertebral bodies likely previous treated, no significant edema or enhancement. No other visualized metastatic lesion. Mild chronic compression superior endplate T4 with incidental hemangioma Mr Aragon was referred to pulmonology for evaluation of mediastinal lymphadenopathy. He underwent bronchoscopy on 12/07/2019 right middle lobe. Endobronchial biopsy showed benign respiratory mucosa and cartilage. No malignancy identified. His PSA has continued to elevate and had recommended changing him to enzalutamide 160 mg p.o. daily and discontinue the Zytiga/prednisone. He will continue with the Xgeva and Lupron. Xtandi was put on hold on April 14, 2020 because of diarrhea and eventually discontinued, his PSA continues to go up while on docetaxel and on December 17, 2020 his PSA was 84.9 compared to 68.4 on November 17, at that time he was decided to discontinue Taxotere and last dose was given on November 17, 2020, his treatment was discussed and changed to Jevtana on January 08, 2021 will continue on monthly Xgeva and 3 monthly Lupron. Follow-up CT PET scan done on March 28, 2021 shows new sclerotic osseous metastatic disease in the right iliac, T10, T11 bone other lesions in T1, T5 and S1 locations are stable, index right common iliac lymph node seen on prior scan done in October 2019 showed SUV has improved and cluster of lymph node in the right common iliac territory has improved mediastinal lymph nodes also shows improvement, Based on stable findings on CT PET scan although persistently elevated PSA around 90, he was decided to continue with Jevtana/Lupron/Xgeva Plan: Discussed with patient regarding his labs white blood count 5.8 hemoglobin 12.2 hematocrit 37.7 platelets 167,000 CMP within normal limits and follow-up CT PET scan which shows improvement in lymphadenopathy but new osseous lesion, bone scan was recommended Clinically, patient is doing well with excellent quality of life, tolerating Jevtana well, his follow-up CT PET scan shows improvement in the central lymphadenopathy e.g. in mediastinal as well as pelvic no new visceral disease, but new osseous lesion but patient has no new symptoms in fact right leg pain and back pain has resolved while on Jevtana. Based on his follow-up CT PET scan finding which shows improvement in central lymphadenopathy but no new osseous mets which are not symptomatic and patient is overall quality of life is improving, will continue with Jevtana so we will proceed with next cycle today and then he will return to clinic in 3 weeks with CBC CMP and PSA Signed By: Sae Davies M.D. <<Signature on File>>
[2021-04-15] MEDS: pegfilgrastim 6 mg/0.6 mL Kit (onpro) SUBCUT (12:05)
== END 2021-04-18 23:59 | disposition home or self-care (01) ==
LOC: ONCMED 05:41
PROVIDERS: PCP Internal Medicine; Visit Provider Internal Medicine Hematology & Oncology
DX: Z51.11 Encounter for antineoplastic chemotherapy (principal); C61 Malignant neoplasm of prostate; C79.51 Secondary malignant neoplasm of bone; C77.5 Secondary and unspecified malignant neoplasm of intrapelvic lymph nodes; R97.20 Elevated prostate specific antigen [PSA]; R53.83 Other fatigue; G95.20 Unspecified cord compression; D18.09 Hemangioma of other sites; Z79.52 Long term (current) use of systemic steroids; Z79.899 Other long term (current) drug therapy; Z92.3 Personal history of irradiation
CPT/HCPCS: 36415; 80053; 84153; 85025; 96367; 96372; 96375; 96377; 96413; 99214; 99215; J0897; J1100; J1200; J2469; J2505; J3490; J7050; J9043

== ENCOUNTER 2021-05-05 05:40 | Outpatient (RCR) | payer MEDICARE, BC, SELFPAY ==
[2021-05-05 11:11] LABS: Basophils % 0.1 %; Hemoglobin 12.4 g/dL (11.7-16.6); Mean Corpuscular HGB Conc 32.6 g/dL (30.0-36.0); Mean Corpuscular Hemoglobin 32.9 pg (28.0-34.0); Mean Corpuscular Volume 100.8 fl (80-94); Mean Platelet Volume 9.8 fL (7.4-10.4); Monocytes # 0.9 10^3/uL (0.2-0.9); Monocytes % 6.1 %; Neutrophils # 12.09 10^3/uL (1.8-7.7); Neutrophils % 86.2 %; Nucleated Red Blood Cells % 0 %; Platelet Count 195 10^3/cmm (130-400); Red Blood Count 3.77 10^6/uL (4.1-5.3); Red Cell Distribution Width 14.9 % (12.1-15.1)
[2021-05-05 12:03] LABS: Alanine Aminotransferase 11 U/L (0-41); Albumin Level 3.9 g/dL (3.5-5.2); Alkaline Phosphatase 71 IU/L (40-130); Anion Gap 18.2 (5-19); Aspartate Amino Transferase 11 U/L (0-40); Blood Urea Nitrogen 18 mg/dL (8-23); Calcium 8.8 mg/dL (8.5-10.5); Carbon Dioxide 19 mmol/L (22-29); Chloride 105 mmol/L (98-107); Globulin 2.1 g/dL (1.3-4.6); Glucose 99 mg/dL (65-115); Osmolality Calculated 288 mOsm/kg (285-295); Potassium 4.2 mmol/L (3.5-5.1); Sodium 138 mmol/L (136-145); Total Bilirubin 0.5 mg/dL (0.15-1.2)
[2021-05-05] MEDS: sodium chloride 0.9% 250 ML 999 ML IV (13:20)
[2021-05-05] MEDS: palonosetron 0.25 mg/5 mL SDV IVP (13:21)
[2021-05-05] MEDS: famotidine 20 mg/2 mL INJ IVP (13:23)
[2021-05-05] MEDS: diphenhydrAMINE 50 mg/mL SDV 1mL 25 MG IVP (13:24)
--- NOTE | 2021-05-05 13:28 | ONC FU_ITS ---
Dr. Davies follow up note Patient: Oli Aragon Unit #: [id number]: 1935 Dicatated By: Sae Davies M.D.Date of Visit:May 05, 2021 Onc Med Follow-up/Prog Note History of Present Illness: Mr. Aragon is an 85-year-old gentleman with history of prostate cancer diagnosed with LUZMARIA in June 2009, with his PSA was 16.8 In July 2009, he underwent biopsy of prostate gland. The final report came back Torrey score 9 (4+5) and Stephanie's 8 (4+4) CT scan of pelvis in showed right obturator lymph nodes. He was started on chemotherapy/biotherapy/hormonal therapy Lupron. In February 2010, followup study showed partial remission and no evidence of disease on scans. from April 2010 to May 2010, he received radiation therapy to a total of 7800 cGy to prostate and pelvic lymph nodes 4500 cGy. From January 2013 to January 2014, he was treated with Casodex with a PSA response. In January 2016 he was noted to have disease progression lymph node size was increasing on scan and PSA gone up to 12.8 On 08/04/2016 plan was to started Zytiga/prednisone , PSA 13.1. On 08/30/2016 PSA was 25.3. His last dose of Lupron was in January 2017. Initially it was given every 3 months and was changed to every 6 months with followup at [facility]. Zytiga was under consideration but because of cost it was not started as per oncology note from [facility] on 01/17/2017. CT scan of abdomen pelvis done at [facility] on 01/17/2017 showed increasing retroperitoneal and right pelvic lymphadenopathy. A bone scan done on 01/17/2017 showed new foci of uptake involving the sacrum are suspicious for skeletal metastases and new focal uptake at the anterior lateral aspect of the right fourth rib. Which is nonspecific for metastatic versus intraoral trauma. Incidental small right upper lobe pulmonary nodule is nonspecific follow-up suggested. In October 2018 Zytiga was obtained for Mr. Cortes. Mr Aragon was tolerating ADT wit lupron and Zytiga/prednisone well. Follow-up CT PET scan done on 11/10/2019 showed FDG negative, densely sclerotic osseous metastatic disease, consistent with sterilize malignancy. FDG positive lymph nodes in the right common iliac and mediastinal territories consistent with recurrent active malignancy. MRI scan of thoracic spine done on 11/07/2019 showed blastic well circumcised metastatic lesion involving T1 and T5 vertebral bodies likely previous treated, no significant edema or enhancement. No other visualized metastatic lesion. Mild chronic compression superior endplate T4 with incidental hemangioma Mr Aragon was referred to pulmonology for evaluation of mediastinal lymphadenopathy. He underwent bronchoscopy on 12/07/2019 right middle lobe. Endobronchial biopsy showed benign respiratory mucosa and cartilage. No malignancy identified. His PSA has continued to elevate and had recommended changing him to enzalutamide 160 mg p.o. daily and discontinue the Zytiga/prednisone. He will continue with the Xgeva and Lupron. started Xtandi On February 09, 2020 While waiting for repeat bronchoscopy, follow-up CT scan of chest was done on March 05, 2020 which showed stable previously described FDG avid normal and slightly prominent lymph nodes right hilum, left AP window and subcarinal hilar lymph nodes are stable. Subcarinal lymph node is slightly enlarged measuring 11 mm unchanged from previous scan done on November 10, 2019. No evidence of progressive lymphadenopathy. Mild chronic emphysematous changes seen. No acute pulmonary infiltrates. Noncalcified fibrotic appearing nodule right upper lobe measuring 4 mm. Sclerotic FDG negative lesions consistent with treated osseous metastatic disease more prominent at T1, T5 and right fifth rib. Due to persistent severe diarrhea, Xtandi was put on hold on April 14, 2020,Restarted on July 31, 2020 but with low-dose e.g. 80 mg p.o. daily Which was discontinued on August 29, 2020 because of persistent abdominal pain, diarrhea Started on systemic therapy with Taxotere on October 28, 2020 Along with 3 monthly Lupron and Xgeva While on Taxotere, patient's PSA continue to increase, On December 01, 2020 his PSA was 77.01 compared to 68.44 on November 17 and 46.62 on October 28, 2020, thus follow-up CT scan of chest abdomen pelvis was done on December 11, 2020 which shows suspicious for progression of metastatic bone disease, new lesion in his thoracic spine, ribs and right ilium. And increasing lymph nodes along the right iliac chain measuring about 2.3 x 2.4 cm. No pulmonary nodules, no increase in size of indeterminate bilateral hilar lymph nodes Bone scan done on December 11, 2020 shows mild progression of metastatic bone disease since October 2019, now new lesions in the thoracic vertebrae right ilium and posterior right fifth rib versus scapula. Guardant 360 done on December 17, 2020 showed no obvious targetable therapeutic mutations Mr Aragon tarted on Jevtana/Prednisone on January 08, 2021 along with monthly Xgeva and 3 monthly Lupron. He has tolerated it well thus far. MRI lumbar spine done on February 02, 2021 showed enhancing metastatic lesion involving right aspect of sacrum S1 unchanged since bone scan done on December 11, 2020, mass measuring 4.2 x 3.9 x 2.1 cm. Enhancing metastatic lesion involving posterior L1 spinous process is also unchanged. No evidence of enhancing epidural disease. Mild right L5-S1 foraminal narrowing. , patient is status post radiation therapy to sacrum in the past . Mr. Aragon has continued treatment with Jevtana, denosumab and Depo-Lupron. Follow-up CT PET scan done on March 28, 2021 showed the index right iliac lymph node seen on prior studies unchanged in size, currently measuring 2 cm but SUV have improved to 5.9 from 11.1 previously. Similarly a cluster of nodes in the right common iliac territories slightly improved. Mediastinal lymph nodes seen on prior studies are still FDG positive but are improved since October 2019 and are again noted in subcarinal, subaortic, right paratracheal, right paraesophageal, bilateral hilar territory. New sclerotic osseous metastatic disease is present in right iliac, T10, T11 bones and other lesions in T1, T5 and right fifth rib and S1 locations are stable , tolerating Jevtana/Lupron/Xgeva well Came for follow-up, denies any specific complaints, right leg pain is almost resolved, no fever chills, no nausea or vomiting, no diarrhea or constipation, no peripheral neuropathy, no shortness of breath, no wheezing, no jaundice, no chest pain or palpitation, no new bony pains, tolerating Jevtana/Lupron/Xgeva well otherwise Medications: Ambien 1 Tablet (of 5 mg) Oral at bedtime, diphenhydrAMINE HCl (25 mg) Capsule Oral at bedtime PRN, Lansoprazole (30 mg) Capsule Delayed Release Oral daily, Mirtazapine 1 Tablet (of 15 mg) Oral at bedtime PRN, Ondansetron HCl 1 Tablet (of 4 mg) Oral q 6 hours PRN, predniSONE 1 Tablet (of 10 mg) Oral daily Allergies: No Known Allergies. Review of Systems: Review of Systems is not available for this patient. Vital Signs: Performed on May 05, 2021 12:33 Height - 76.00 in Weight - 175.4 lbs (HIGH) BSA - 2.10 sq.m BMI - 21.35 Temperature - 97.8 F (LOW) Pulse - 65 /min Respiration - 17 /min BP - 129/57 mm(hg) O2 Sat - 96 % Pain - 0 Performance Status: 0 - Fully active, able to carry on all predisease activities without restrictions. (ECOG) Physical Examination: ENMT - No mouth sores, no thrush, no jaundice, Respiratory - Lungs are clear to auscultation, Cardiovascular - Regular rate and rhythm of heart, Abdomen - Soft, bowel sounds present, Extremities - No visible edema. Lab/Imaging: Test performed on Mar 02, 2021 08:53 Sodium 136 mmol/L Potassium 3.8 mmol/L Chloride 104 mmol/L CO2 19 mmol/L Anion Gap 16.8 BUN 16 mg/dL Creatinine 0.9 mg/dL Cr Clearance (Est) 69.5400 mL/min Glucose 167 mg/dL Osmolality - Calculated 287 mOsm/kg Calcium 8.9 mg/dL Protein, Total 6.0 g/dL Albumin 4.0 g/dL Globulin 2.0 g/dL Bilirubin, Total 0.3 mg/dL ALT (SGPT) 10 U/L AST (SGOT) 12 U/L Alkaline Phosphatase 71 IU/L WBC 8.2 10 3/uL RBC 4.09 10 6/uL HGB 13.0 g/dL HCT 40.0 % MCV 97.8 fL MCH 31.8 pg MCHC 32.5 g/dL RDW 14.4 % Platelet Count 202 10 3/cmm MPV 10.0 fL Neutrophils 7.32 10 3/uL Lymphocytes 0.6 10 3/uL Monocytes 0.3 10 3/uL Eosinophils 0.0 10 3/uL Basophils 0.0 10 3/uL Neutrophil % 89.0 % Lymphocyte % 7.0 % Monocyte % 3.5 % Eosinophil % 0.0 % Basophils % 0.0 % NRBC % 0 % PSA 84.900 ng/mL Test performed on Jan 07, 2021 11:34 Manual Lymphocytes 80.7 % Manual Monocytes 2.4 % Manual Eosinophils 0.3 % Manual Basophils 0.4 % NRBCs 0.0 /100 WBC Impression: Adenocarcinoma of prostate,Initially diagnosed in July 2009, status post radiation. Prostate and pelvic lymph nodes in April 2010, now with recurrent with pelvic/retroperitoneal lymphadenopathy and abnormal bone scan. On Lupron at [facility] Bone scan done on 05/11/2017 showed no evidence of bony metastatic disease Rising PSA while on Lupron Started on zytiga 1000 mg po qd and prednisone 5 mg twice a day on 06/08/2017 in his PSA on June 06/2017 was 134 Fatigue probably multifactorial including hormone withdrawal recent History of fall from the tree, with injury to tailbone and right ribs Bone scan done on 07/20/2017 at [facility] showed 2 new lesions, one in the region of T2 and on in the pelvis likely skeletal metastasis. Multiple ribs lesions probably due to trauma Chest x-ray done on 09/26/2017 showed normal visualized bone structures. No acute changes bone scan done on 09/28/2007 showed metastatic bone disease is stable with no progression or improvement since 07/20/2017 CT scan of abdomen pelvis done on 07/20/2017 at [facility] showed retroperitoneal lymphadenopathy is stable or slightly smaller soft tissue nodule in the Florence's pouch is unchanged New sclerotic lesion in the right anterior sacrum at S1 -S 3 may represent new focus of bone metastases Bone scan done on 07/24/2018 showed no new focus of increased activity, overall decreased activity of previously noted metastatic/posttraumatic changes since 09/28/2017. Unchanged cervicothoracic spine increase activity, probably related to prior anterior fusion changes. CT scan of pelvis done on 07/24/2018 showed no pelvic lymphadenopathy, a small soft tissue nodule measuring 10 mm inseparable from the right iliac vein, has been present since 01/17/2017 Venous Doppler study right leg shows no DVT CT scan of abdomen pelvis done on 2018 showed incidental left renal cyst without change Prior appendicectomy Stable right-sided pericaval lymph node. Variable appearance of blastic metastatic lesion right sacral ala and right side of S1 vertebral body bone scan done on 11/03/2018 showed increased uptake in right sacrum stable T4 lesion, and resolution of left costochondral lesions Status post radiation therapy to right sacroiliac area Follow-up bone scan done on 10/29/2019 shows no evidence of disease progression, no new area of metastatic disease Stable to slightly improved metastatic lesion involving the right posterior sacrum Additional stable to improve lesion involving the right T4 vertebral body and posterior fourth rib. Follow-up CT PET scan done on 11/10/2019 showed FDG negative, densely sclerotic osseous metastatic disease, consistent with sterilize malignancy. FDG positive lymph nodes in the right common iliac and mediastinal territories consistent with recurrent active malignancy. MRI scan of thoracic spine done on 11/07/2019 showed blastic well circumcised metastatic lesion involving T1 and T5 vertebral bodies likely previous treated, no significant edema or enhancement. No other visualized metastatic lesion. Mild chronic compression superior endplate T4 with incidental hemangioma Mr Aragon was referred to pulmonology for evaluation of mediastinal lymphadenopathy. He underwent bronchoscopy on 12/07/2019 right middle lobe. Endobronchial biopsy showed benign respiratory mucosa and cartilage. No malignancy identified. His PSA has continued to elevate and had recommended changing him to enzalutamide 160 mg p.o. daily and discontinue the Zytiga/prednisone. He will continue with the Xgeva and Lupron. Xtandi was put on hold on April 14, 2020 because of diarrhea and eventually discontinued, his PSA continues to go up while on docetaxel and on December 17, 2020 his PSA was 84.9 compared to 68.4 on November 17, at that time he was decided to discontinue Taxotere and last dose was given on November 17, 2020, his treatment was discussed and changed to Jevtana on January 08, 2021 will continue on monthly Xgeva and 3 monthly Lupron. Follow-up CT PET scan done on March 28, 2021 shows new sclerotic osseous metastatic disease in the right iliac, T10, T11 bone other lesions in T1, T5 and S1 locations are stable, index right common iliac lymph node seen on prior scan done in October 2019 showed SUV has improved and cluster of lymph node in the right common iliac territory has improved mediastinal lymph nodes also shows improvement, Based on stable findings on CT PET scan although persistently elevated PSA around 90, he was decided to continue with Jevtana/Lupron/Xgeva Plan: Discussed with patient regarding his labs white blood count 14 hemoglobin 12.4 hematocrit 38 platelets 195,000 CMP within normal limits, PSA 70.84 compared to 80.23 on April 15, 2021 and 90.82 on March 25, 2021 Clinically, patient is doing well, his right leg pain has resolved, 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 Tolerating palliative therapy with Jevtana/Lupron along with Xgeva well We will proceed with next dose of Jevtana and Xgeva today patient will continue with his prednisone as well as Lupron as recommended, PSA continue to improve along with quality of life Patient return to clinic in 3 weeks with CBC CMP and PSA if reasonable for next dose of Jevtana Signed By: Sae Davies M.D. <<Signature on File>>
[2021-05-05] MEDS: pegfilgrastim 6 mg/0.6 mL Kit (onpro) SUBCUT (14:55)
[2021-05-05] MEDS: denosumab 120 mg SDV SUBCUT (15:05)
== END 2021-05-19 23:59 | disposition home or self-care (01) ==
LOC: ONCMED 05:40
PROVIDERS: PCP Internal Medicine; Visit Provider Internal Medicine Hematology & Oncology
DX: Z51.12 Encounter for antineoplastic immunotherapy (principal); Z51.11 Encounter for antineoplastic chemotherapy; C61 Malignant neoplasm of prostate; C77.8 Secondary and unspecified malignant neoplasm of lymph nodes of multiple regions; C79.51 Secondary malignant neoplasm of bone; R97.20 Elevated prostate specific antigen [PSA]; R53.82 Chronic fatigue, unspecified; Z79.899 Other long term (current) drug therapy; Z79.818 Long term (current) use of other agents affecting estrogen receptors and estrogen levels; Z86.718 Personal history of other venous thrombosis and embolism
CPT/HCPCS: 36415; 80053; 84153; 85025; 96367; 96372; 96375; 96377; 96413; 99215; J0897; J1100; J1200; J2469; J2505; J3490; J7050; J9043

== ENCOUNTER 2021-06-02 05:41 | Outpatient (RCR) | payer MEDICARE, BC, SELFPAY ==
[2021-05-26 08:51] LABS: Basophils % 0.1 %; Hematocrit 36.6 % (42.0-52.0); Hemoglobin 11.9 g/dL (11.7-16.6); Lymphocytes # 0.8 10^3/uL (0.8-4.8); Lymphocytes % 6.2 %; Mean Corpuscular HGB Conc 32.5 g/dL (30.0-36.0); Mean Corpuscular Hemoglobin 32.3 pg (28.0-34.0); Mean Corpuscular Volume 99.5 fl (80-94); Monocytes % 7.3 %; Neutrophils # 11.33 10^3/uL (1.8-7.7); Neutrophils % 85.9 %; Nucleated Red Blood Cells % 0 %; Platelet Count 192 10^3/cmm (130-400); Red Blood Count 3.68 10^6/uL (4.1-5.3); Red Cell Distribution Width 14.3 % (12.1-15.1); White Blood Count 13.2 10^3/uL (4.0-10.0)
[2021-05-26 09:51] LABS: Alanine Aminotransferase 9 U/L (0-41); Albumin Level 3.6 g/dL (3.5-5.2); Alkaline Phosphatase 70 IU/L (40-130); Aspartate Amino Transferase 13 U/L (0-40); Blood Urea Nitrogen 20 mg/dL (8-23); Calcium 8.6 mg/dL (8.5-10.5); Carbon Dioxide 21 mmol/L (22-29); Chloride 104 mmol/L (98-107); Glucose 94 mg/dL (65-115); Osmolality Calculated 286 mOsm/kg (285-295); Sodium 137 mmol/L (136-145); Total Bilirubin 0.4 mg/dL (0.15-1.2); Total Protein 5.6 g/dL (6.6-8.7)
--- NOTE | 2021-05-26 10:48 | ONC FU_ITS ---
Dr. Davies follow up note Patient: Oli Aragon Unit #: [id number]: 1935 Dicatated By: Sae Davies M.D.Date of Visit:May 26, 2021 Onc Med Follow-up/Prog Note History of Present Illness: Mr. Aragon is an 85-year-old gentleman with history of prostate cancer diagnosed with LUZMARIA in June 2009, with his PSA was 16.8 In July 2009, he underwent biopsy of prostate gland. The final report came back Guston score 9 (4+5) and Stephanie's 8 (4+4) CT scan of pelvis in showed right obturator lymph nodes. He was started on chemotherapy/biotherapy/hormonal therapy Lupron. In February 2010, followup study showed partial remission and no evidence of disease on scans. from April 2010 to May 2010, he received radiation therapy to a total of 7800 cGy to prostate and pelvic lymph nodes 4500 cGy. From January 2013 to January 2014, he was treated with Casodex with a PSA response. In January 2016 he was noted to have disease progression lymph node size was increasing on scan and PSA gone up to 12.8 On 08/04/2016 plan was to started Zytiga/prednisone , PSA 13.1. On 08/30/2016 PSA was 25.3. His last dose of Lupron was in January 2017. Initially it was given every 3 months and was changed to every 6 months with followup at [facility]. Zytiga was under consideration but because of cost it was not started as per oncology note from [facility] on 01/17/2017. CT scan of abdomen pelvis done at [facility] on 01/17/2017 showed increasing retroperitoneal and right pelvic lymphadenopathy. A bone scan done on 01/17/2017 showed new foci of uptake involving the sacrum are suspicious for skeletal metastases and new focal uptake at the anterior lateral aspect of the right fourth rib. Which is nonspecific for metastatic versus intraoral trauma. Incidental small right upper lobe pulmonary nodule is nonspecific follow-up suggested. In October 2018 Zytiga was obtained for Mr. Cortes. Mr Aragon was tolerating ADT wit lupron and Zytiga/prednisone well. Follow-up CT PET scan done on 11/10/2019 showed FDG negative, densely sclerotic osseous metastatic disease, consistent with sterilize malignancy. FDG positive lymph nodes in the right common iliac and mediastinal territories consistent with recurrent active malignancy. MRI scan of thoracic spine done on 11/07/2019 showed blastic well circumcised metastatic lesion involving T1 and T5 vertebral bodies likely previous treated, no significant edema or enhancement. No other visualized metastatic lesion. Mild chronic compression superior endplate T4 with incidental hemangioma Mr Aragon was referred to pulmonology for evaluation of mediastinal lymphadenopathy. He underwent bronchoscopy on 12/07/2019 right middle lobe. Endobronchial biopsy showed benign respiratory mucosa and cartilage. No malignancy identified. His PSA has continued to elevate and had recommended changing him to enzalutamide 160 mg p.o. daily and discontinue the Zytiga/prednisone. He will continue with the Xgeva and Lupron. started Xtandi On February 09, 2020 While waiting for repeat bronchoscopy, follow-up CT scan of chest was done on March 05, 2020 which showed stable previously described FDG avid normal and slightly prominent lymph nodes right hilum, left AP window and subcarinal hilar lymph nodes are stable. Subcarinal lymph node is slightly enlarged measuring 11 mm unchanged from previous scan done on November 10, 2019. No evidence of progressive lymphadenopathy. Mild chronic emphysematous changes seen. No acute pulmonary infiltrates. Noncalcified fibrotic appearing nodule right upper lobe measuring 4 mm. Sclerotic FDG negative lesions consistent with treated osseous metastatic disease more prominent at T1, T5 and right fifth rib. Due to persistent severe diarrhea, Xtandi was put on hold on April 14, 2020,Restarted on July 31, 2020 but with low-dose e.g. 80 mg p.o. daily Which was discontinued on August 29, 2020 because of persistent abdominal pain, diarrhea Started on systemic therapy with Taxotere on October 28, 2020 Along with 3 monthly Lupron and Xgeva While on Taxotere, patient's PSA continue to increase, On December 01, 2020 his PSA was 77.01 compared to 68.44 on November 17 and 46.62 on October 28, 2020, thus follow-up CT scan of chest abdomen pelvis was done on December 11, 2020 which shows suspicious for progression of metastatic bone disease, new lesion in his thoracic spine, ribs and right ilium. And increasing lymph nodes along the right iliac chain measuring about 2.3 x 2.4 cm. No pulmonary nodules, no increase in size of indeterminate bilateral hilar lymph nodes Bone scan done on December 11, 2020 shows mild progression of metastatic bone disease since October 2019, now new lesions in the thoracic vertebrae right ilium and posterior right fifth rib versus scapula. Guardant 360 done on December 17, 2020 showed no obvious targetable therapeutic mutations Mr Aragon tarted on Jevtana/Prednisone on January 08, 2021 along with monthly Xgeva and 3 monthly Lupron. He has tolerated it well thus far. MRI lumbar spine done on February 02, 2021 showed enhancing metastatic lesion involving right aspect of sacrum S1 unchanged since bone scan done on December 11, 2020, mass measuring 4.2 x 3.9 x 2.1 cm. Enhancing metastatic lesion involving posterior L1 spinous process is also unchanged. No evidence of enhancing epidural disease. Mild right L5-S1 foraminal narrowing. , patient is status post radiation therapy to sacrum in the past . Mr. Aragon has continued treatment with Jevtana, denosumab and Depo-Lupron. Follow-up CT PET scan done on March 28, 2021 showed the index right iliac lymph node seen on prior studies unchanged in size, currently measuring 2 cm but SUV have improved to 5.9 from 11.1 previously. Similarly a cluster of nodes in the right common iliac territories slightly improved. Mediastinal lymph nodes seen on prior studies are still FDG positive but are improved since October 2019 and are again noted in subcarinal, subaortic, right paratracheal, right paraesophageal, bilateral hilar territory. New sclerotic osseous metastatic disease is present in right iliac, T10, T11 bones and other lesions in T1, T5 and right fifth rib and S1 locations are stable , tolerating Jevtana/Lupron/Xgeva well Came for follow-up, denies any specific complaint except chronic right lower back/pelvic pain which is under control with current pain medication, no radiating to the right leg, no dysuria or hematuria, no urine or stool incontinence, no peripheral neuropathy, tolerating systemic therapy with Jevtana well along with 3 monthly Lupron and monthly Xgeva. Medications: Ambien 1 Tablet (of 5 mg) Oral at bedtime, diphenhydrAMINE HCl (25 mg) Capsule Oral at bedtime PRN, Lansoprazole (30 mg) Capsule Delayed Release Oral daily, Mirtazapine 1 Tablet (of 15 mg) Oral at bedtime PRN, Ondansetron HCl 1 Tablet (of 4 mg) Oral q 6 hours PRN, predniSONE 1 Tablet (of 10 mg) Oral daily, Tums 1 (500 mg) Tablet, chewable Oral PRN Allergies: No Known Allergies. Review of Systems: Review of Systems is not available for this patient. Vital Signs: Performed on May 26, 2021 09:09 Height - 76.00 in Weight - 176.6 lbs (HIGH) BSA - 2.10 sq.m BMI - 21.50 Temperature - 97.6 F (LOW) Pulse - 60 /min Respiration - 18 /min BP - 134/75 mm(hg) O2 Sat - 97 % Pain - 5 Fatigue - 0 Performance Status: 0 - Fully active, able to carry on all predisease activities without restrictions. (ECOG) Physical Examination: ENMT - No mouth sores, no thrush, no jaundice, Respiratory - Lungs are clear to auscultation, Cardiovascular - Regular rate and rhythm of heart, Abdomen - Soft, bowel sounds present, Extremities - No visible edema. Lab/Imaging: Test performed on Mar 02, 2021 08:53 Sodium 136 mmol/L Potassium 3.8 mmol/L Chloride 104 mmol/L CO2 19 mmol/L Anion Gap 16.8 BUN 16 mg/dL Creatinine 0.9 mg/dL Cr Clearance (Est) 69.5400 mL/min Glucose 167 mg/dL Osmolality - Calculated 287 mOsm/kg Calcium 8.9 mg/dL Protein, Total 6.0 g/dL Albumin 4.0 g/dL Globulin 2.0 g/dL Bilirubin, Total 0.3 mg/dL ALT (SGPT) 10 U/L AST (SGOT) 12 U/L Alkaline Phosphatase 71 IU/L WBC 8.2 10 3/uL RBC 4.09 10 6/uL HGB 13.0 g/dL HCT 40.0 % MCV 97.8 fL MCH 31.8 pg MCHC 32.5 g/dL RDW 14.4 % Platelet Count 202 10 3/cmm MPV 10.0 fL Neutrophils 7.32 10 3/uL Lymphocytes 0.6 10 3/uL Monocytes 0.3 10 3/uL Eosinophils 0.0 10 3/uL Basophils 0.0 10 3/uL Neutrophil % 89.0 % Lymphocyte % 7.0 % Monocyte % 3.5 % Eosinophil % 0.0 % Basophils % 0.0 % NRBC % 0 % PSA 84.900 ng/mL Test performed on Jan 07, 2021 11:34 Manual Lymphocytes 80.7 % Manual Monocytes 2.4 % Manual Eosinophils 0.3 % Manual Basophils 0.4 % NRBCs 0.0 /100 WBC Impression: Adenocarcinoma of prostate,Initially diagnosed in July 2009, status post radiation. Prostate and pelvic lymph nodes in April 2010, now with recurrent with pelvic/retroperitoneal lymphadenopathy and abnormal bone scan. On Lupron at [facility] Bone scan done on 05/11/2017 showed no evidence of bony metastatic disease Rising PSA while on Lupron Started on zytiga 1000 mg po qd and prednisone 5 mg twice a day on 06/08/2017 in his PSA on June 06/2017 was 134 Fatigue probably multifactorial including hormone withdrawal recent History of fall from the tree, with injury to tailbone and right ribs Bone scan done on 07/20/[address] [facility] showed 2 new lesions, one in the region of T2 and on in the pelvis likely skeletal metastasis. Multiple ribs lesions probably due to trauma Chest x-ray done on 09/26/2017 showed normal visualized bone structures. No acute changes bone scan done on 09/28/2007 showed metastatic bone disease is stable with no progression or improvement since 07/20/2017 CT scan of abdomen pelvis done on 07/20/[address] [facility] showed retroperitoneal lymphadenopathy is stable or slightly smaller soft tissue nodule in the Florence's pouch is unchanged New sclerotic lesion in the right anterior sacrum at S1 -S 3 may represent new focus of bone metastases Bone scan done on 07/24/2018 showed no new focus of increased activity, overall decreased activity of previously noted metastatic/posttraumatic changes since 09/28/2017. Unchanged cervicothoracic spine increase activity, probably related to prior anterior fusion changes. CT scan of pelvis done on 07/24/2018 showed no pelvic lymphadenopathy, a small soft tissue nodule measuring 10 mm inseparable from the right iliac vein, has been present since 01/17/2017 Venous Doppler study right leg shows no DVT CT scan of abdomen pelvis done on 2018 showed incidental left renal cyst without change Prior appendicectomy Stable right-sided pericaval lymph node. Variable appearance of blastic metastatic lesion right sacral ala and right side of S1 vertebral body bone scan done on 11/03/2018 showed increased uptake in right sacrum stable T4 lesion, and resolution of left costochondral lesions Status post radiation therapy to right sacroiliac area Follow-up bone scan done on 10/29/2019 shows no evidence of disease progression, no new area of metastatic disease Stable to slightly improved metastatic lesion involving the right posterior sacrum Additional stable to improve lesion involving the right T4 vertebral body and posterior fourth rib. Follow-up CT PET scan done on 11/10/2019 showed FDG negative, densely sclerotic osseous metastatic disease, consistent with sterilize malignancy. FDG positive lymph nodes in the right common iliac and mediastinal territories consistent with recurrent active malignancy. MRI scan of thoracic spine done on 11/07/2019 showed blastic well circumcised metastatic lesion involving T1 and T5 vertebral bodies likely previous treated, no significant edema or enhancement. No other visualized metastatic lesion. Mild chronic compression superior endplate T4 with incidental hemangioma Mr Aragon was referred to pulmonology for evaluation of mediastinal lymphadenopathy. He underwent bronchoscopy on 12/07/2019 right middle lobe. Endobronchial biopsy showed benign respiratory mucosa and cartilage. No malignancy identified. His PSA has continued to elevate and had recommended changing him to enzalutamide 160 mg p.o. daily and discontinue the Zytiga/prednisone. He will continue with the Xgeva and Lupron. Xtandi was put on hold on April 14, 2020 because of diarrhea and eventually discontinued, his PSA continues to go up while on docetaxel and on December 17, 2020 his PSA was 84.9 compared to 68.4 on November 17, at that time he was decided to discontinue Taxotere and last dose was given on November 17, 2020, his treatment was discussed and changed to Jevtana on January 08, 2021 will continue on monthly Xgeva and 3 monthly Lupron. Follow-up CT PET scan done on March 28, 2021 shows new sclerotic osseous metastatic disease in the right iliac, T10, T11 bone other lesions in T1, T5 and S1 locations are stable, index right common iliac lymph node seen on prior scan done in October 2019 showed SUV has improved and cluster of lymph node in the right common iliac territory has improved mediastinal lymph nodes also shows improvement, Based on stable findings on CT PET scan although persistently elevated PSA around 90, he was decided to continue with Jevtana/Lupron/Xgeva Plan: Discussed with patient regarding his labs white blood count 13.1 hemoglobin 11.9 hematocrit 36.6 platelets 192,000 CMP within normal limits PSA 72.5 compared to 70.84 previously Clinically, patient is doing well with excellent palliative results, at this point we will proceed with next dose of Jevtana today and then he will return to clinic in 1 week for his 3 monthly dose of Lupron and monthly dose of Xgeva. Signed By: Sae Davies M.D. <<Signature on File>>
[2021-05-26] MEDS: sodium chloride 0.9% 250 ML 999 ML IV (11:07)
[2021-05-26] MEDS: palonosetron 0.25 mg/5 mL SDV IVP (11:07)
[2021-05-26] MEDS: famotidine 20 mg/2 mL INJ IVP (11:08)
[2021-05-26] MEDS: diphenhydrAMINE 50 mg/mL SDV 1mL 25 MG IVP (11:09)
[2021-05-26] MEDS: cyanocobalamin 1,000 mcg/mL SDV 1000 MCG SUBCUT (11:48)
[2021-05-26] MEDS: pegfilgrastim 6 mg/0.6 mL Kit (onpro) SUBCUT (12:30)
[2021-06-02] MEDS: denosumab 120 mg SDV SUBCUT (09:37)
[2021-06-02] MEDS: leuprolide 22.5 mg Kit IM (09:41)
== END 2021-06-11 09:05 | disposition home or self-care (01) ==
LOC: ONCMED 05:41
PROVIDERS: Internal Medicine Hematology & Oncology; PCP Internal Medicine; Visit Provider Internal Medicine Medical Oncology
DX: Z51.12 Encounter for antineoplastic immunotherapy (principal); Z51.11 Encounter for antineoplastic chemotherapy; C61 Malignant neoplasm of prostate; C79.51 Secondary malignant neoplasm of bone; C77.5 Secondary and unspecified malignant neoplasm of intrapelvic lymph nodes; Z79.899 Other long term (current) drug therapy
CPT/HCPCS: 80053; 84153; 85025; 96367; 96372; 96375; 96377; 96402; 96413; J0897; J1100; J1200; J2469; J2505; J3420; J3490; J7050; J9043; J9217

== ENCOUNTER 2021-06-11 09:08 | Emergency (ER) | payer MEDICARE, BC, SELFPAY ==
[2021-06-11 09:14] VITALS: BP 148/82; PULSE 64; RESP 16; TEMP 36.7; O2SAT 94; BMI 20.9
--- NOTE | 2021-06-11 09:30 | CT_ITS ---
WS: [id number] CT HEAD TECHNIQUE: Noncontrast CT of the head obtained from the skullbase to the vertex. CLINICAL INFORMATION: fall and hit head. lac to left forehead COMPARISON: None. DLP: 910.[address] scans at [facility] use at least one of these dose optimization techniques: automated e xposure control; mA and/or kV adjustment per patient size (includes targeted exams where dose is matc hed to clinical indication); or iterative reconstruction. FINDINGS: No evidence of intracranial hemorrhage or mass effect. Ventricular system and basal cisterns are bell nt. Moderate small vessel changes with moderate parenchymal volume loss. No extra-axial fluid collect ions. No evidence of mass or mass effect. Normal galloway-white differentiation. Paranasal sinuses and mastoid air cells are well aerated. CT/CT head wo con* [id number] IMPRESSION: 1. No evidence of intracranial hemorrhage or mass effect. 2. Moderate small vessel changes. Moderate parenchymal volume loss. 3. No acute intracranial findings.
--- NOTE | 2021-06-11 09:30 | XR_ITS ---
WS: [id number] Chest with left rib detail, 06/11/2021 Clinical Data: left rib pain after fall Comparison: Portable chest, 10/14/2020. Findings: The lungs show no nodules, masses, or effusions. The heart is normal. No pneumonia or pneumothorax is seen. The right subclavian port remains in good position. The aortic arch shows tortuosity. An anterior cer vical disc fusion plate is noted. There is a nondisplaced lateral left sixth rib fracture. No subcutaneous emphysema is seen. Remainder of the ribs is intact. XR/XR ribs LT mn 3V w [id number] Impression: Nondisplaced lateral left sixth rib fracture.
--- NOTE | 2021-06-11 09:30 | XR_ITS ---
WS: [id number] Left hand, 3 views, 06/11/2021 Clinical Data: fall with injury and lac to left hand Comparison: None. Findings: No fractures or dislocations are seen. The soft tissues are unremarkable. The joint spaces are normal There are calcifications in the triradiate cartilage and in the articulation between the distal left radius and the scaphoid and lunate. XR/XR hand LT min 3V* [id number] Impression: Negative left hand.
--- NOTE | 2021-06-11 09:32 | W.ED.WOUNDLC ---
HPI - Wound/Laceration General: Chief Complaint: Wound/Laceration Stated Complaint: Injury to Left hand Time Seen by Provider: 06/11/21 09:22 History of Present Illness: HPI narrative: Patient is an 85-year-old male who comes to the ED after fall. Patient says he was stepping up onto a curb outside and caused him to fall forward landing on his left side of his body. Patient denies any loss of consciousness or headache. He is complaining of having some left rib pain that hurts whenever he takes a deep breath. He also has a laceration on his left forehead and a laceration on his left hand. Patient rinsed cuts out with tap water and then cleaned both lacerations with hydrogen peroxide before coming to the ED. Patient has not taken anything for pain and states he does not want anything for pain currently. Patient says he is up-to-date on his tetanus. Associated symptoms: Denies chills, fever(s), nausea or vomiting Review of Systems Const: Denies: fever(s), chills or fatigue Eyes: Denies: change in vision or eye discomfort ENMT: Denies: throat pain, odynophagia, nasal discharge or nasal congestion Card: Denies: chest pain, palpitations, edema, swelling of feet/ankles, dyspnea on exertion or orthopnea Resp: Reports: pain on inspiration (left rib pain); Denies: dyspnea, productive cough or non-productive cough GI: Denies: abdominal pain, nausea, vomiting, diarrhea, constipation or hematochezia : Denies: flank pain, difficulty urinating, dysuria or hematuria Musc: Denies: neck pain, back pain or extremity swelling Skin/Breast: Reports: new lesions (Laceration to left forehead and laceration to left hand); Denies: rash Neuro: Denies: headache(s), numbness in extremities or weakness in extremities PFS ED PFSH: Medical History Adenocarcinoma of prostate C. difficile colitis Mediastinal adenopathy (Unknown) Surgical History H/O neck surgery History of appendectomy Family History Other Cancer Stroke Social History Smoking and tobacco status: former smoker Quit status (tobacco): has quit using tobacco Year quit tobacco: 1970 - 1PPD x 5 Years Second hand smoke exposure: No Alcohol intake: former Lives independently: Yes Household members: spouse Marital status: Current occupational status: retired History of recent travel: No Current gender identity: Male Physical Exam Const: COMMON NORMALS: no acute distress, patient oriented x3 and alert GENERAL APPEARANCE: cooperative and comfortable HENMT: COMMON NORMALS: normocephalic HEAD & SCALP: normocephalic; no Traylor's sign and no raccoon eyes FACE & SINUS: laceration left above eyebrow linear, actively bleeding (minimal), superficial, with motor nerve function intact and with sensation intact; no pulsatile bleeding, with no foreign body present and not contaminated Facial laceration size: 1 cm MOUTH: Normal oral and palatal mucosa present THROAT: posterior oropharynx normal and uvula midline Neck/C-Spine: COMMON NORMALS: supple GENERAL: Yes normal visual inspection Chest: CHEST: Yes tenderness rib left anterior-axillary line involving the 6th rib and involving the 7th rib Resp: COMMON NORMALS: normal respiratory effort, No retractions, No use of accessory muscles and clear to auscultation bilaterally AUSCULTATION: clear to auscultation bilaterally Cardio: COMMON NORMALS: regular rate, regular rhythm, S1 normal heart sound present, S2 normal heart sound present, No gallops present (Cardio), No clicks present (Cardio), No murmurs present (Cardio) and Peripheral pulses 2+ throughout RATE: regular rate RHYTHM: regular rhythm HEART SOUNDS: S1 normal heart sound present and S2 normal heart sound present PERIPHERAL PULSES: Peripheral pulses 2+ throughout GI: COMMON NORMALS: Normal to inspection, nondistended, normoactive bowel sounds present, Soft to palpation, non-tender and no masses PALPATION: Yes Soft to palpation : COMMON NORMALS: Yes no CVA tenderness BLADDER/KIDNEY EXAM: Yes no CVA tenderness Back/Pelvis: COMMON NORMALS: no CVA tenderness Extremity: COMMON NORMALS: normal to inspection and full ROM NARRATIVE EXTREMITY EXAM: Patient have left hand laceration on palmar side of hand just below the fifth digit. Neuro: COMMON NORMALS: patient oriented x3, CN's II-XII intact bilaterally, moves all extremities, no focal motor deficits and no sensory deficits noted SENSORIUM/ORIENTATION: Yes alert SENSORY EXAM: Yes extremities (intact) MOTOR EXAM: 5/5 motor strength present throughout Skin: GENERAL SKIN EXAM: dry skin TRAUMA: laceration (Left Hand ) irregular (horseshoe shaped), superficial, motor nerve function intact and sensation intact; not actively bleeding, no foreign bodies present and not contaminated Procedures Laceration Laceration 1: Site: face ( above the left eyebrow) Side (If applicable): left Size (cm): 1 Description: linear and clean Depth: simple, single layer Local Anesthetic: lidocaine 1% and with epi Amount of anesthesia used (mL): 10 Pre-repair: irrigated extensively (With normal saline) Skin layer closed with: nylon Size (cm): 5-0 Number of sutures: 2 Technique: simple, interrupted Laceration 2: Site: hand Side (If applicable): left Size (cm): 3.5 Description: irregular (Horseshoe shaped) Depth: simple, single layer Local Anesthetic: lidocaine 1% and with epi Amount of anesthesia used (mL): 10 Pre-repair: irrigated extensively (With normal saline.) Skin layer closed with: nylon Size (cm): 4-0 Number of sutures: 11 Course Vital Signs: Vital signs: Vital Signs Temperature 98.1 F 06/11/21 09:14 Pulse Rate 61 06/11/21 09:33 Respiratory Rate 16 06/11/21 09:14 Blood Pressure 138/82 06/11/21 09:33 Pulse Oximetry 97 06/11/21 09:33 MDM - Wound/Laceration MDM Narrative: Medical decision making narrative: Patient is an 85-year-old male comes to the ED with left rib pain and a laceration on left hand and left forehead. Denies any loss of consciousness or any neurological symptoms. CT of head showed no acute findings. Chest x-ray showed sixth rib nondisplaced fracture. XR left hand no acute fracture. Patient's lacerations were irrigated extensively with normal saline and lidocaine 1% with epi was used as local. Then 2 sutures were placed on the forehead laceration and 11 sutures were placed on the left hand laceration. Patient tolerated procedure well. Patient was diagnosed with rib fracture, laceration of face and laceration of left hand. Patient says he does not need any pain meds and has a prescription at home. He was told to have fascial sutures removed in 5 days and his hand sutures removed in about 10 days. He was discharged home with a prescription for cephalexin as prophylactic treatment. Return to ED precautions given. Patient understood and agree with plan. Imaging Data^: CT Head: Attestation: I personally reviewed and interpreted this imaging study as follows: Radiologist's impression: [address] [place] [address] CT Scan Report Signed Patient: Oli Aragon Unit #: [id number] : 1935 Age/Sex: 85 / M ADM Date: 06/11/21 Loc: ER Room/Bed: Attending Dr: Ordering Provider/Ordering MD: Luis Ochoa Date of Service: 06/11/21 Procedure(s): CT head wo con* [id number] Accession Number(s): [id number] Report Number: [id number] WS: [id number] CT HEAD TECHNIQUE: Noncontrast CT of the head obtained from the skullbase to the vertex. CLINICAL INFORMATION: fall and hit head. lac to left forehead COMPARISON: None. DLP: 910.[address] scans at [facility] use at least one of these dose optimization techniques: automated exposure control; mA and/or kV adjustment per patient size (includes targeted exams where dose is matched to clinical indication); or iterative reconstruction. FINDINGS: No evidence of intracranial hemorrhage or mass effect. Ventricular system and basal cisterns are patent. Moderate small vessel changes with moderate parenchymal volume loss. No extra-axial fluid collections. No evidence of mass or mass effect. Normal galloway-white differentiation. Paranasal sinuses and mastoid air cells are well aerated. CT/CT head wo con* [id number] IMPRESSION: 1. No evidence of intracranial hemorrhage or mass effect. 2. Moderate small vessel changes. Moderate parenchymal volume loss. 3. No acute intracranial findings. Dictated By: Jose Rogers MD Signed By: Jose Rogers MD Signed Date/Time: 06/11/21 1029 DD/ 1025 CXR: Attestation: I personally reviewed and interpreted this imaging study as follows: Radiologist's impression: [address] [place] [address] XRay Report Signed Patient: Oli Aragon Unit #: [id number] : 1935 Age/Sex: 85 / M ADM Date: 06/11/21 Loc: ER Room/Bed: Attending Dr: Ordering Provider/Ordering MD: Luis Ochoa Date of Service: 06/11/21 Procedure(s): XR ribs LT mn 3V w CXR1V 54044 Accession Number(s): [id number] Report Number: [id number] WS: [id number] Chest with left rib detail, 06/11/2021 Clinical Data: left rib pain after fall Comparison: Portable chest, 10/14/2020. Findings: The lungs show no nodules, masses, or effusions. The heart is normal. No pneumonia or pneumothorax is seen. The right subclavian port remains in good position. The aortic arch shows tortuosity. An anterior cervical disc fusion plate is noted. There is a nondisplaced lateral left sixth rib fracture. No subcutaneous emphysema is seen. Remainder of the ribs is intact. XR/XR ribs LT mn 3V w CXR1V [id number] Impression: Nondisplaced lateral left sixth rib fracture. Dictated By: Ashley Soria MD Signed By: Ashley Soria MD Signed Date/Time: 06/11/21 1024 DD/ 1020 Xray Ortho: Attestation: I personally reviewed and interpreted this imaging study as follows: Radiologist's impression: [address] [place] [address] XRay Report Signed Patient: Oli Aragon Unit #: [id number] : 1935 Age/Sex: 85 / M ADM Date: 06/11/21 Loc: ER Room/Bed: Attending Dr: Ordering Provider/Ordering MD: Luis Ochoa Date of Service: 06/11/21 Procedure(s): XR hand LT min 3V* [id number] Accession Number(s): [id number] Report Number: [id number] WS: [id number] Left hand, 3 views, 06/11/2021 Clinical Data: fall with injury and lac to left hand Comparison: None. Findings: No fractures or dislocations are seen. The soft tissues are unremarkable. The joint spaces are normal There are calcifications in the triradiate cartilage and in the articulation between the distal left radius and the scaphoid and lunate. XR/XR hand LT min 3V* [id number] Impression: Negative left hand. Dictated By: Ashley Soria MD Signed By: Ashley Soria MD Signed Date/Time: 06/11/21 1121 DD/ 1119 Discharge Plan Discharge Patient Disposition: Home Clinical Impression: Fracture of rib Qualifiers: Encounter type: initial encounter Rib fracture type: single rib Fracture type: closed Laterality: left Qualified Code(s): S22.32XA - Fracture of one rib, left side, initial encounter for closed fracture Laceration of face Qualifiers: Encounter type: initial encounter Qualified Code(s): S01.81XA - Laceration without foreign body of other part of head, initial encounter Laceration of hand, left Qualifiers: Encounter type: initial encounter Foreign body presence: without foreign body Qualified Code(s): S61.412A - Laceration without foreign body of left hand, initial encounter Condition: Stable Prescriptions: New cephalexin 500 mg capsule 500 mg PO Q6H 5 Days Qty: 20 RF: 0 No Action lansoprazole 30 mg Capsule,Delayed Release(Dr/Ec) 30 mg PO QAM RF: 0 prednisone 10 mg tablet 10 mg PO QAM RF: 0 trazodone 50 mg tablet 50 mg PO BEDTIME PRN (Reason: Sleep) RF: 0 Tylenol Ex Str Rapid Release 500 mg Tablet 500 mg PO Q6H PRN (Reason: Pain) RF: 0 Vitamin B-12 1,000 mcg/mL Solution 1,000 mcg IM Q30D RF: 0 dexamethasone 4 mg tablet See Rx Instructions .ROUTE .COMPLEX RF: 0 Aleve 220 mg Tablet 220 mg PO Q12H PRN (Reason: Pain) RF: 0 zolpidem 5 mg tablet 5 mg PO BEDTIME PRN (Reason: Sleep) RF: 0 Acidophilus Capsule 1 cap PO DAILY RF: 0 Discharge Orders: Discharge ED (Routine); Ordered 06/11/21 Ordered By: Luis Ochoa Referrals: Anatoly Ochoa MD [Primary Care Provider] - Discharge Diet: Regular Discharge Activity: Limit activity as instructed Patient Instructions: Laceration (ED), Rib Fracture (ED) Activity Restrictions/Additional Instructions: Take full course of antibiotics as prescribed. Keep laceration site clean and dry for the next 48 hours. Then after that you can clean and re-bandage daily. Watch for signs of infection such as redness, warmth, increased tenderness and puslike drainage. If you see the signs of infection return to the ED, urgent care or PCP for reevaluation. call your PCP to schedule a follow-up appointment for reevaluation and suture removal on face in 5 days and hand in about 10 days. Continue taking all home meds. Rest and limit activity and apply cold pack on sore area of chest to help with symptoms. Take your previously prescribed pain medications as needed for pain. Return to the ED immediately if you have any increased shortness of breath. Follow discharge plans as discussed. You can return to the ED if symptoms worsen. Coding Level of Care Code ED [employer] Coordinator for Ike Treviño Exam Comprehensive
[2021-06-11 09:33] VITALS: BP 138/82; PULSE 61; O2SAT 97
--- NOTE | 2021-06-11 11:18 | PC.PHAR ---
pt states he takes care of his own medications-pt states he alternates taking ambien and trazodone but hasnt had to take either for a while-pt states he gets some kind of injections for his cancer and his bones every 3 months from -pt states the medications entered are the medications he takes
== END 2021-06-11 12:01 | disposition home or self-care (01) ==
PROVIDERS: Emergency Provider Physician Assistant; PCP Internal Medicine
DX: S22.32XA Fracture of one rib, left side, initial encounter for closed fracture (principal); S01.81XA Laceration without foreign body of other part of head, initial encounter; S61.412A Laceration without foreign body of left hand, initial encounter; Z87.891 Personal history of nicotine dependence; W19.XXXA Unspecified fall, initial encounter
CPT/HCPCS: 12001; 12011; 70450; 71101; 73130; 99282

== ENCOUNTER 2021-06-16 06:46 | Outpatient (RCR) | payer MEDICARE, BC, SELFPAY ==
[2021-06-16 08:52] LABS: Basophils % 0.1 %; Hematocrit 37.2 % (42.0-52.0); Lymphocytes # 0.6 10^3/uL (0.8-4.8); Lymphocytes % 5.5 %; Mean Corpuscular HGB Conc 32.3 g/dL (30.0-36.0); Mean Corpuscular Hemoglobin 33.5 pg (28.0-34.0); Mean Corpuscular Volume 103.9 fl (80-94); Mean Platelet Volume 10.3 fL (7.4-10.4); Monocytes # 0.3 10^3/uL (0.2-0.9); Monocytes % 2.8 %; Neutrophils # 10.31 10^3/uL (1.8-7.7); Neutrophils % 90.7 %; Nucleated Red Blood Cells % 0 %; Platelet Count 207 10^3/cmm (130-400); Red Blood Count 3.58 10^6/uL (4.1-5.3); Red Cell Distribution Width 14.5 % (12.1-15.1); White Blood Count 11.4 10^3/uL (4.0-10.0)
[2021-06-16 09:43] LABS: Alanine Aminotransferase 9 U/L (0-41); Albumin Level 3.8 g/dL (3.5-5.2); Alkaline Phosphatase 63 IU/L (40-130); Anion Gap 14.4 (5-19); Aspartate Amino Transferase 11 U/L (0-40); Blood Urea Nitrogen 22 mg/dL (8-23); Calcium 8.4 mg/dL (8.5-10.5); Carbon Dioxide 22 mmol/L (22-29); Chloride 105 mmol/L (98-107); Globulin 2.2 g/dL (1.3-4.6); Glucose 124 mg/dL (65-115); Osmolality Calculated 289 mOsm/kg (285-295); Potassium 4.4 mmol/L (3.5-5.1); Sodium 137 mmol/L (136-145); Total Bilirubin 0.4 mg/dL (0.15-1.2)
[2021-06-16] MEDS: sodium chloride 0.9% 250 ML 999 ML IV (10:26)
[2021-06-16] MEDS: diphenhydrAMINE 50 mg/mL SDV 1mL 25 MG IVP (10:26)
[2021-06-16] MEDS: famotidine 20 mg/2 mL INJ IVP (10:28)
[2021-06-16] MEDS: palonosetron 0.25 mg/5 mL SDV IVP (10:30)
[2021-06-16] MEDS: pegfilgrastim 6 mg/0.6 mL Kit (onpro) SUBCUT (13:05)
--- NOTE | 2021-06-16 17:58 | ONC FU_ITS ---
Dr. Davies follow up note Patient: Oli Aragon Unit #: [id number]: [id number] Dicatated By: Sae Davies M.D.Date of Visit:Jun 16, 2021 Onc Med Follow-up/Prog Note History of Present Illness: Mr. Aragon is an 85-year-old gentleman with history of prostate cancer diagnosed with LUZMARIA in June 2009, with his PSA was 16.8 In July 2009, he underwent biopsy of prostate gland. The final report came back Elyria score 9 (4+5) and Stephanie's 8 (4+4) CT scan of pelvis in showed right obturator lymph nodes. He was started on chemotherapy/biotherapy/hormonal therapy Lupron. In February 2010, followup study showed partial remission and no evidence of disease on scans. from April 2010 to May 2010, he received radiation therapy to a total of 7800 cGy to prostate and pelvic lymph nodes 4500 cGy. From January 2013 to January 2014, he was treated with Casodex with a PSA response. In January 2016 he was noted to have disease progression lymph node size was increasing on scan and PSA gone up to 12.8 On 08/04/2016 plan was to started Zytiga/prednisone , PSA 13.1. On 08/30/2016 PSA was 25.3. His last dose of Lupron was in January 2017. Initially it was given every 3 months and was changed to every 6 months with followup at [facility]. Zytiga was under consideration but because of cost it was not started as per oncology note from [facility] on 01/17/2017. CT scan of abdomen pelvis done at [facility] on 01/17/2017 showed increasing retroperitoneal and right pelvic lymphadenopathy. A bone scan done on 01/17/2017 showed new foci of uptake involving the sacrum are suspicious for skeletal metastases and new focal uptake at the anterior lateral aspect of the right fourth rib. Which is nonspecific for metastatic versus intraoral trauma. Incidental small right upper lobe pulmonary nodule is nonspecific follow-up suggested. In October 2018 Zytiga was obtained for Mr. Cortes. Mr Aragon was tolerating ADT wit lupron and Zytiga/prednisone well. Follow-up CT PET scan done on 11/10/2019 showed FDG negative, densely sclerotic osseous metastatic disease, consistent with sterilize malignancy. FDG positive lymph nodes in the right common iliac and mediastinal territories consistent with recurrent active malignancy. MRI scan of thoracic spine done on 11/07/2019 showed blastic well circumcised metastatic lesion involving T1 and T5 vertebral bodies likely previous treated, no significant edema or enhancement. No other visualized metastatic lesion. Mild chronic compression superior endplate T4 with incidental hemangioma Mr Aragon was referred to pulmonology for evaluation of mediastinal lymphadenopathy. He underwent bronchoscopy on 12/07/2019 right middle lobe. Endobronchial biopsy showed benign respiratory mucosa and cartilage. No malignancy identified. His PSA has continued to elevate and had recommended changing him to enzalutamide 160 mg p.o. daily and discontinue the Zytiga/prednisone. He will continue with the Xgeva and Lupron. started Xtandi On February 09, 2020 While waiting for repeat bronchoscopy, follow-up CT scan of chest was done on March 05, 2020 which showed stable previously described FDG avid normal and slightly prominent lymph nodes right hilum, left AP window and subcarinal hilar lymph nodes are stable. Subcarinal lymph node is slightly enlarged measuring 11 mm unchanged from previous scan done on November 10, 2019. No evidence of progressive lymphadenopathy. Mild chronic emphysematous changes seen. No acute pulmonary infiltrates. Noncalcified fibrotic appearing nodule right upper lobe measuring 4 mm. Sclerotic FDG negative lesions consistent with treated osseous metastatic disease more prominent at T1, T5 and right fifth rib. Due to persistent severe diarrhea, Xtandi was put on hold on April 14, 2020,Restarted on July 31, 2020 but with low-dose e.g. 80 mg p.o. daily Which was discontinued on August 29, 2020 because of persistent abdominal pain, diarrhea Started on systemic therapy with Taxotere on October 28, 2020 Along with 3 monthly Lupron and Xgeva While on Taxotere, patient's PSA continue to increase, On December 01, 2020 his PSA was 77.01 compared to 68.44 on November 17 and 46.62 on October 28, 2020, thus follow-up CT scan of chest abdomen pelvis was done on December 11, 2020 which shows suspicious for progression of metastatic bone disease, new lesion in his thoracic spine, ribs and right ilium. And increasing lymph nodes along the right iliac chain measuring about 2.3 x 2.4 cm. No pulmonary nodules, no increase in size of indeterminate bilateral hilar lymph nodes Bone scan done on December 11, 2020 shows mild progression of metastatic bone disease since October 2019, now new lesions in the thoracic vertebrae right ilium and posterior right fifth rib versus scapula. Guardant 360 done on December 17, 2020 showed no obvious targetable therapeutic mutations Mr Aragon tarted on Jevtana/Prednisone on January 08, 2021 along with monthly Xgeva and 3 monthly Lupron. He has tolerated it well thus far. MRI lumbar spine done on February 02, 2021 showed enhancing metastatic lesion involving right aspect of sacrum S1 unchanged since bone scan done on December 11, 2020, mass measuring 4.2 x 3.9 x 2.1 cm. Enhancing metastatic lesion involving posterior L1 spinous process is also unchanged. No evidence of enhancing epidural disease. Mild right L5-S1 foraminal narrowing. , patient is status post radiation therapy to sacrum in the past . Mr. Aragon has continued treatment with Jevtana, denosumab and Depo-Lupron. Follow-up CT PET scan done on March 28, 2021 showed the index right iliac lymph node seen on prior studies unchanged in size, currently measuring 2 cm but SUV have improved to 5.9 from 11.1 previously. Similarly a cluster of nodes in the right common iliac territories slightly improved. Mediastinal lymph nodes seen on prior studies are still FDG positive but are improved since October 2019 and are again noted in subcarinal, subaortic, right paratracheal, right paraesophageal, bilateral hilar territory. New sclerotic osseous metastatic disease is present in right iliac, T10, T11 bones and other lesions in T1, T5 and right fifth rib and S1 locations are stable , tolerating Jevtana/Lupron/Xgeva well Came for follow-up, denies any specific complaint except headache fall injuring his left hand and forehead requiring some stitches, as per patient he was walking uphill while talking to his neighbor and not paying attention. Denies any blurred vision double vision denies any headaches denies any fever chills denies any melena or hematochezia denies any hematuria denies any new bony pains., No diarrhea or constipation, no abdominal pain, no jaundice, no shortness of breath, otherwise tolerating Jevtana well Medications: Ambien 1 Tablet (of 5 mg) Oral at bedtime, diphenhydrAMINE HCl (25 mg) Capsule Oral at bedtime PRN, Lansoprazole (30 mg) Capsule Delayed Release Oral daily, Mirtazapine 1 Tablet (of 15 mg) Oral at bedtime PRN, Ondansetron HCl 1 Tablet (of 4 mg) Oral q 6 hours PRN, predniSONE 1 Tablet (of 10 mg) Oral daily, Tums 1 (500 mg) Tablet, chewable Oral PRN Allergies: No Known Allergies. Review of Systems: Review of Systems is not available for this patient. Vital Signs: Performed on Jun 16, 2021 10:22 Height - 76.00 in Weight - 180.8 lbs (HIGH) BSA - 2.12 sq.m BMI - 22.01 Temperature - 96.7 F (LOW) Pulse - 66 /min Respiration - 18 /min BP - 163/90 mm(hg) (HIGH) O2 Sat - 95 % (LOW) Pain - 0 Fatigue - 0 Performance Status: 0 - Fully active, able to carry on all predisease activities without restrictions. (ECOG) Physical Examination: ENMT - No mouth sores, no thrush, no jaundice healing left forehead injury, Respiratory - Lungs are clear to auscultation, Cardiovascular - Regular rate and rhythm of heart, Abdomen - Soft, bowel sounds present, Extremities - No visible edema. Lab/Imaging: Test performed on Mar 02, 2021 08:53 Sodium 136 mmol/L Potassium 3.8 mmol/L Chloride 104 mmol/L CO2 19 mmol/L Anion Gap 16.8 BUN 16 mg/dL Creatinine 0.9 mg/dL Cr Clearance (Est) 69.5400 mL/min Glucose 167 mg/dL Osmolality - Calculated 287 mOsm/kg Calcium 8.9 mg/dL Protein, Total 6.0 g/dL Albumin 4.0 g/dL Globulin 2.0 g/dL Bilirubin, Total 0.3 mg/dL ALT (SGPT) 10 U/L AST (SGOT) 12 U/L Alkaline Phosphatase 71 IU/L WBC 8.2 10 3/uL RBC 4.09 10 6/uL HGB 13.0 g/dL HCT 40.0 % MCV 97.8 fL MCH 31.8 pg MCHC 32.5 g/dL RDW 14.4 % Platelet Count 202 10 3/cmm MPV 10.0 fL Neutrophils 7.32 10 3/uL Lymphocytes 0.6 10 3/uL Monocytes 0.3 10 3/uL Eosinophils 0.0 10 3/uL Basophils 0.0 10 3/uL Neutrophil % 89.0 % Lymphocyte % 7.0 % Monocyte % 3.5 % Eosinophil % 0.0 % Basophils % 0.0 % NRBC % 0 % PSA 84.900 ng/mL Test performed on Jan 07, 2021 11:34 Manual Lymphocytes 80.7 % Manual Monocytes 2.4 % Manual Eosinophils 0.3 % Manual Basophils 0.4 % NRBCs 0.0 /100 WBC Impression: Adenocarcinoma of prostate,Initially diagnosed in July 2009, status post radiation. Prostate and pelvic lymph nodes in April 2010, now with recurrent with pelvic/retroperitoneal lymphadenopathy and abnormal bone scan. On Lupron at [facility] Bone scan done on 05/11/2017 showed no evidence of bony metastatic disease Rising PSA while on Lupron Started on zytiga 1000 mg po qd and prednisone 5 mg twice a day on 06/08/2017 in his PSA on June 06/2017 was 134 Fatigue probably multifactorial including hormone withdrawal recent History of fall from the tree, with injury to tailbone and right ribs Bone scan done on 07/20/2017 at [facility] showed 2 new lesions, one in the region of T2 and on in the pelvis likely skeletal metastasis. Multiple ribs lesions probably due to trauma Chest x-ray done on 09/26/2017 showed normal visualized bone structures. No acute changes bone scan done on 09/28/2007 showed metastatic bone disease is stable with no progression or improvement since 07/20/2017 CT scan of abdomen pelvis done on 07/20/2017 at [facility] showed retroperitoneal lymphadenopathy is stable or slightly smaller soft tissue nodule in the Florence's pouch is unchanged New sclerotic lesion in the right anterior sacrum at S1 -S 3 may represent new focus of bone metastases Bone scan done on 07/24/2018 showed no new focus of increased activity, overall decreased activity of previously noted metastatic/posttraumatic changes since 09/28/2017. Unchanged cervicothoracic spine increase activity, probably related to prior anterior fusion changes. CT scan of pelvis done on 07/24/2018 showed no pelvic lymphadenopathy, a small soft tissue nodule measuring 10 mm inseparable from the right iliac vein, has been present since 01/17/2017 Venous Doppler study right leg shows no DVT CT scan of abdomen pelvis done on 2018 showed incidental left renal cyst without change Prior appendicectomy Stable right-sided pericaval lymph node. Variable appearance of blastic metastatic lesion right sacral ala and right side of S1 vertebral body bone scan done on 11/03/2018 showed increased uptake in right sacrum stable T4 lesion, and resolution of left costochondral lesions Status post radiation therapy to right sacroiliac area Follow-up bone scan done on 10/29/2019 shows no evidence of disease progression, no new area of metastatic disease Stable to slightly improved metastatic lesion involving the right posterior sacrum Additional stable to improve lesion involving the right T4 vertebral body and posterior fourth rib. Follow-up CT PET scan done on 11/10/2019 showed FDG negative, densely sclerotic osseous metastatic disease, consistent with sterilize malignancy. FDG positive lymph nodes in the right common iliac and mediastinal territories consistent with recurrent active malignancy. MRI scan of thoracic spine done on 11/07/2019 showed blastic well circumcised metastatic lesion involving T1 and T5 vertebral bodies likely previous treated, no significant edema or enhancement. No other visualized metastatic lesion. Mild chronic compression superior endplate T4 with incidental hemangioma Mr Aragon was referred to pulmonology for evaluation of mediastinal lymphadenopathy. He underwent bronchoscopy on 12/07/2019 right middle lobe. Endobronchial biopsy showed benign respiratory mucosa and cartilage. No malignancy identified. His PSA has continued to elevate and had recommended changing him to enzalutamide 160 mg p.o. daily and discontinue the Zytiga/prednisone. He will continue with the Xgeva and Lupron. Xtandi was put on hold on April 14, 2020 because of diarrhea and eventually discontinued, his PSA continues to go up while on docetaxel and on December 17, 2020 his PSA was 84.9 compared to 68.4 on November 17, at that time he was decided to discontinue Taxotere and last dose was given on November 17, 2020, his treatment was discussed and changed to Jevtana on January 08, 2021 will continue on monthly Xgeva and 3 monthly Lupron. Follow-up CT PET scan done on March 28, 2021 shows new sclerotic osseous metastatic disease in the right iliac, T10, T11 bone other lesions in T1, T5 and S1 locations are stable, index right common iliac lymph node seen on prior scan done in October 2019 showed SUV has improved and cluster of lymph node in the right common iliac territory has improved mediastinal lymph nodes also shows improvement, Based on stable findings on CT PET scan although persistently elevated PSA around 90, he was decided to continue with Jevtana/Lupron/Xgeva Plan: Discussed with patient regarding his labs white blood count 11.4 hemoglobin 12 hematocrit 37.2 platelets 207,000 CMP within normal limits PSA 88 compared to 72.55 previously Clinically, patient is doing reasonably well with no new signs symptoms his PSA continues to go up while CT PET scan shows no evidence of progression, at this point will consider proceeding with next dose of Jevtana today, followed by Neulasta to prevent chemotherapy-induced neutropenia leukopenia and return to clinic in 3 weeks with CBC CMP and also consider reevaluation with PSMA scan which is more sensitive to detect active prostate cancer. Signed By: Sae Davies M.D. <<Signature on File>>
== END 2021-06-18 23:59 | disposition home or self-care (01) ==
LOC: ONCMED 06:46
PROVIDERS: PCP Internal Medicine; Visit Provider Internal Medicine Hematology & Oncology
DX: Z51.12 Encounter for antineoplastic immunotherapy (principal); C61 Malignant neoplasm of prostate; C77.8 Secondary and unspecified malignant neoplasm of lymph nodes of multiple regions; C79.51 Secondary malignant neoplasm of bone; R97.20 Elevated prostate specific antigen [PSA]; Z79.52 Long term (current) use of systemic steroids; R53.82 Chronic fatigue, unspecified; N28.1 Cyst of kidney, acquired; Z79.899 Other long term (current) drug therapy
CPT/HCPCS: 80053; 84153; 85025; 96367; 96372; 96375; 96413; 99215; J1100; J1200; J2469; J2505; J3490; J7050; J9043

== ENCOUNTER 2021-07-07 06:21 | Outpatient (RCR) | payer MEDICARE, BC, SELFPAY ==
[2021-06-23] MEDS: cyanocobalamin 1,000 mcg/mL SDV 1000 MCG IM (14:15)
[2021-07-07 08:45] LABS: Basophils % 0.1 %; Hematocrit 39.4 % (42.0-52.0); Hemoglobin 12.6 g/dL (11.7-16.6); Lymphocytes # 0.9 10^3/uL (0.8-4.8); Lymphocytes % 8.6 %; Mean Corpuscular Hemoglobin 32.3 pg (28.0-34.0); Mean Platelet Volume 10.4 fL (7.4-10.4); Monocytes # 0.5 10^3/uL (0.2-0.9); Monocytes % 5.4 %; Neutrophils # 8.45 10^3/uL (1.8-7.7); Neutrophils % 85.5 %; Nucleated Red Blood Cells % 0 %; Platelet Count 232 10^3/cmm (130-400); White Blood Count 9.9 10^3/uL (4.0-10.0)
[2021-07-07 09:54] LABS: Alanine Aminotransferase 10 U/L (0-41); Alkaline Phosphatase 89 IU/L (40-130); Anion Gap 17.8 (5-19); Aspartate Amino Transferase 12 U/L (0-40); Blood Urea Nitrogen 18 mg/dL (8-23); Calcium 9.1 mg/dL (8.5-10.5); Carbon Dioxide 20 mmol/L (22-29); Chloride 105 mmol/L (98-107); Globulin 2.2 g/dL (1.3-4.6); Glucose 130 mg/dL (65-115); Osmolality Calculated 292 mOsm/kg (285-295); Potassium 3.8 mmol/L (3.5-5.1); Sodium 139 mmol/L (136-145); Total Bilirubin 0.4 mg/dL (0.15-1.2); Total Protein 6.2 g/dL (6.6-8.7)
[2021-07-07] MEDS: famotidine 20 mg/2 mL INJ IVP (10:55)
[2021-07-07] MEDS: sodium chloride 0.9% 250 ML 75 ML IV (11:00)
[2021-07-07] MEDS: diphenhydrAMINE 50 mg/mL SDV 1mL 25 MG IV (11:05)
[2021-07-07] MEDS: palonosetron 0.25 mg/5 mL SDV IV (11:10)
[2021-07-07] MEDS: pegfilgrastim 6 mg/0.6 mL Kit (onpro) SUBCUT (12:35)
[2021-07-07] MEDS: denosumab 120 mg SDV SUBCUT (12:40)
--- NOTE | 2021-07-15 01:45 | ONC FU_ITS ---
[facility] Patient Note Patient: Oli Aragon Unit #: [id number]: 1935 Dictated By: Nadine GarrisonDate of Visit: Jul 07, 2021 Onc MED Follow-Up/Prog Note Chief Complaint: Prostate cancer History of Present Illness: Mr. Aragon is an 85-year-old gentleman with history of prostate cancer diagnosed with LUZMARIA in June 2009, with his PSA was 16.8 In July 2009, he underwent biopsy of prostate gland. The final report came back Stephanie score 9 (4+5) and Seneca's 8 (4+4) CT scan of pelvis in showed right obturator lymph nodes. He was started on chemotherapy/biotherapy/hormonal therapy Lupron. In February 2010, followup study showed partial remission and no evidence of disease on scans. from April 2010 to May 2010, he received radiation therapy to a total of 7800 cGy to prostate and pelvic lymph nodes 4500 cGy. From January 2013 to January 2014, he was treated with Casodex with a PSA response. In January 2016 he was noted to have disease progression lymph node size was increasing on scan and PSA gone up to 12.8 On 08/04/2016 plan was to started Zytiga/prednisone , PSA 13.1. On 08/30/2016 PSA was 25.3. His last dose of Lupron was in January 2017. Initially it was given every 3 months and was changed to every 6 months with followup at [facility]. Zytiga was under consideration but because of cost it was not started as per oncology note from [facility] on 01/17/2017. CT scan of abdomen pelvis done at [facility] on 01/17/2017 showed increasing retroperitoneal and right pelvic lymphadenopathy. A bone scan done on 01/17/2017 showed new foci of uptake involving the sacrum are suspicious for skeletal metastases and new focal uptake at the anterior lateral aspect of the right fourth rib. Which is nonspecific for metastatic versus intraoral trauma. Incidental small right upper lobe pulmonary nodule is nonspecific follow-up suggested. In October 2018 Zytiga was obtained for Mr. Cortes. Mr Aragon was tolerating ADT wit lupron and Zytiga/prednisone well. Follow-up CT PET scan done on 11/10/2019 showed FDG negative, densely sclerotic osseous metastatic disease, consistent with sterilize malignancy. FDG positive lymph nodes in the right common iliac and mediastinal territories consistent with recurrent active malignancy. MRI scan of thoracic spine done on 11/07/2019 showed blastic well circumcised metastatic lesion involving T1 and T5 vertebral bodies likely previous treated, no significant edema or enhancement. No other visualized metastatic lesion. Mild chronic compression superior endplate T4 with incidental hemangioma Mr Aragon was referred to pulmonology for evaluation of mediastinal lymphadenopathy. He underwent bronchoscopy on 12/07/2019 right middle lobe. Endobronchial biopsy showed benign respiratory mucosa and cartilage. No malignancy identified. His PSA has continued to elevate and had recommended changing him to enzalutamide 160 mg p.o. daily and discontinue the Zytiga/prednisone. He will continue with the Xgeva and Lupron. started Xtandi On February 09, 2020 While waiting for repeat bronchoscopy, follow-up CT scan of chest was done on March 05, 2020 which showed stable previously described FDG avid normal and slightly prominent lymph nodes right hilum, left AP window and subcarinal hilar lymph nodes are stable. Subcarinal lymph node is slightly enlarged measuring 11 mm unchanged from previous scan done on November 10, 2019. No evidence of progressive lymphadenopathy. Mild chronic emphysematous changes seen. No acute pulmonary infiltrates. Noncalcified fibrotic appearing nodule right upper lobe measuring 4 mm. Sclerotic FDG negative lesions consistent with treated osseous metastatic disease more prominent at T1, T5 and right fifth rib. Due to persistent severe diarrhea, Xtandi was put on hold on April 14, 2020,Restarted on July 31, 2020 but with low-dose e.g. 80 mg p.o. daily Which was discontinued on August 29, 2020 because of persistent abdominal pain, diarrhea Started on systemic therapy with Taxotere on October 28, 2020, Along with 3 monthly Lupron and Xgeva. While on Taxotere, patient's PSA continue to increase, On December 01, 2020 his PSA was 77.01 compared to 68.44 on November 17 and 46.62 on October 28, 2020, thus follow-up CT scan of chest abdomen pelvis was done on December 11, 2020 which shows suspicious for progression of metastatic bone disease, new lesion in his thoracic spine, ribs and right ilium. And increasing lymph nodes along the right iliac chain measuring about 2.3 x 2.4 cm. No pulmonary nodules, no increase in size of indeterminate bilateral hilar lymph nodes Bone scan done on December 11, 2020 shows mild progression of metastatic bone disease since October 2019, now new lesions in the thoracic vertebrae right ilium and posterior right fifth rib versus scapula. Guardant 360 done on December 17, 2020 showed no obvious targetable therapeutic mutations Mr Aragon started on Jevtana/Prednisone on January 08, 2021 along with monthly Xgeva and 3 monthly Lupron. He has tolerated it well thus far. MRI lumbar spine done on February 02, 2021 showed enhancing metastatic lesion involving right aspect of sacrum S1 unchanged since bone scan done on December 11, 2020, mass measuring 4.2 x 3.9 x 2.1 cm. Enhancing metastatic lesion involving posterior L1 spinous process is also unchanged. No evidence of enhancing epidural disease. Mild right L5-S1 foraminal narrowing. , patient is status post radiation therapy to sacrum in the past . Mr. Aragon has continued treatment with Jevtana, denosumab and Depo-Lupron. Follow-up CT PET scan done on March 28, 2021 showed the index right iliac lymph node seen on prior studies unchanged in size, currently measuring 2 cm but SUV have improved to 5.9 from 11.1 previously. Similarly a cluster of nodes in the right common iliac territories slightly improved. Mediastinal lymph nodes seen on prior studies are still FDG positive but are improved since October 2019 and are again noted in subcarinal, subaortic, right paratracheal, right paraesophageal, bilateral hilar territory. New sclerotic osseous metastatic disease is present in right iliac, T10, T11 bones and other lesions in T1, T5 and right fifth rib and S1 locations are stable He continued treatment and is tolerating Jevtana/Lupron/Xgeva well. He has now completed 8 full cycles. Mr. Aragon is here today for follow-up. He is due for cycle 9 Jevtana. His last Depo-Lupron was on June 02, 2021. His last denosumab was also on June 02, 2021. He is receiving it monthly. He has no new concerns today. He states overall he is still feeling well. Dr. Davies had requested a PSMA scan for followup of his prostate cancer. He reports that this is now scheduled for July 21 at 3 PM at [facility]. His PSA has continued to slowly rise. On June 16, 2021 was 88. Is 106 today. He has no new pain. He denies any bone pain. He denies any changes with his breathing. He denies any chest pain. He states he has not had any nausea or vomiting. He states his bowels are normal for him. He denies any peripheral neuropathy. He states overall he feels really good he just tires easily. He is able to do all his ADLs without assistance however. His ECOG is 0. Past Medical History: COVID 19 in 2019 Past Surgical History: Neck surgery in 2013 Appendectomy in 1970 Allergies: No Known Allergies. Medications: Ambien 1 Tablet (of 5 mg) Oral at bedtime diphenhydrAMINE HCl (25 mg) Capsule Oral at bedtime PRN Lansoprazole (30 mg) Capsule Delayed Release Oral daily Mirtazapine 1 Tablet (of 15 mg) Oral at bedtime PRN Ondansetron HCl 1 Tablet (of 4 mg) Oral q 6 hours PRN predniSONE 1 Tablet (of 10 mg) Oral daily Tums 1 (500 mg) Tablet, chewable Oral PRN Family History: Mr. Aragon's mother at age 89. Mr. Aragon's father at age 94. Social History: Mr. Aragon is and he is retired. Mr. Aragon no longer smokes but had smoked 0.5 packs/day for 8 years. He has no history of drinking. Mr. Aragon reports the following support systems: lives with spouse, significant other, family, or friends, lives in own house, supportive family/friends willing to assist with needs, and adequate transportation available for expected visits. His diet consists of regular meals. He indicates his activity level as: daily activities. Review Of Symptoms: <See Above> Vital Signs: Performed on Jul 07, 2021 10:16 Height - 76.00 in Weight - 180.8 lbs BSA - 2.12 sq.m BMI - 22.01 Temperature - 98.0 F (LOW) Pulse - 67 /min Respiration - 18 /min BP - 138/82 mm(hg) O2 Sat - 94 % (LOW) Pain - 0 Fatigue - 0,0 - Fully active, able to carry on all predisease activities without restrictions. (ECOG) Physical Examination: Constitutional Alert, oriented, no acute distress. Skin pink, warm and dry. Head Normocephalic; atraumatic. Eyes Conjunctivae and sclerae are clear and without icterus. Pupils are reactive and equal. Neck Supple without masses or thyromegaly. No jugular venous distension. Hematologic/Lymphatic No petechiae or purpura. No tender or palpable lymph nodes in the cervical or supraclavicular areas. Respiratory Lungs are clear to auscultation without rhonchi or wheezing. Cardiovascular Regular rate and rhythm of heart without murmurs,clicks, gallops or rubs. Abdomen Non-tender, non-distended, no masses or ascites. Good bowel sounds noted in all quads. No guarding or rebound tenderness. No pulsatile masses. Back/Spine Non-tender to palpation. Extremities No visible deformities, no cyanosis, clubbing or edema. Musculoskeletal No tenderness or swelling, normal range of motion without obvious weakness. Integumentary No rashes or lesions. Neurologic No sensory or motor deficits, normal cerebellar function, normal gait. Psychiatric Alert and oriented times three. Coherent speech. Verbalizes understanding of our discussions today. Laboratory:Test performed on Jul 07, 2021 08:02 Sodium 139 mmol/L Potassium 3.8 mmol/L Chloride 105 mmol/L CO2 20 mmol/L Anion Gap 17.8 BUN 18 mg/dL Creatinine 0.8 mg/dL Cr Clearance (Est) 78.2300 mL/min Glucose 130 mg/dL Osmolality - Calculated 292 mOsm/kg Calcium 9.1 mg/dL Protein, Total 6.2 g/dL Albumin 4.0 g/dL Globulin 2.2 g/dL Bilirubin, Total 0.4 mg/dL ALT (SGPT) 10 U/L AST (SGOT) 12 U/L Alkaline Phosphatase 89 IU/L WBC 9.9 10 3/uL RBC 3.90 10 6/uL HGB 12.6 g/dL HCT 39.4 % MCV 101.0 fl MCH 32.3 pg MCHC 32.0 g/dL RDW 14.0 % Platelet Count 232 10 3/cmm MPV 10.4 fL Neutrophils 8.45 10 3/uL Lymphocytes 0.9 10 3/uL Monocytes 0.5 10 3/uL Eosinophils 0.0 10 3/uL Basophils 0.0 10 3/uL Neutrophil % 85.5 % Lymphocyte % 8.6 % Monocyte % 5.4 % Eosinophil % 0.0 % Basophils % 0.1 % NRBC % 0 % PSA 106.00 ng/mL Impression: Adenocarcinoma of prostate,Initially diagnosed in July 2009, status post radiation. Prostate and pelvic lymph nodes in April 2010, now with recurrent with pelvic/retroperitoneal lymphadenopathy and abnormal bone scan. On Lupron at [facility] Bone scan done on 05/11/2017 showed no evidence of bony metastatic disease Rising PSA while on Lupron Started on zytiga 1000 mg po qd and prednisone 5 mg twice a day on 06/08/2017 in his PSA on June 06/2017 was 134 Fatigue probably multifactorial including hormone withdrawal recent History of fall from the tree, with injury to tailbone and right ribs Bone scan done on 07/20/2017 at [facility] showed 2 new lesions, one in the region of T2 and on in the pelvis likely skeletal metastasis. Multiple ribs lesions probably due to trauma Chest x-ray done on 09/26/2017 showed normal visualized bone structures. No acute changes bone scan done on 09/28/2007 showed metastatic bone disease is stable with no progression or improvement since 07/20/2017 CT scan of abdomen pelvis done on 07/20/2017 at [facility] showed retroperitoneal lymphadenopathy is stable or slightly smaller soft tissue nodule in the Florence's pouch is unchanged New sclerotic lesion in the right anterior sacrum at S1 -S 3 may represent new focus of bone metastases Bone scan done on 07/24/2018 showed no new focus of increased activity, overall decreased activity of previously noted metastatic/posttraumatic changes since 09/28/2017. Unchanged cervicothoracic spine increase activity, probably related to prior anterior fusion changes. CT scan of pelvis done on 07/24/2018 showed no pelvic lymphadenopathy, a small soft tissue nodule measuring 10 mm inseparable from the right iliac vein, has been present since 01/17/2017 Venous Doppler study right leg shows no DVT CT scan of abdomen pelvis done on 2018 showed incidental left renal cyst without change Prior appendicectomy Stable right-sided pericaval lymph node. Variable appearance of blastic metastatic lesion right sacral ala and right side of S1 vertebral body bone scan done on 11/03/2018 showed increased uptake in right sacrum stable T4 lesion, and resolution of left costochondral lesions Status post radiation therapy to right sacroiliac area Follow-up bone scan done on 10/29/2019 shows no evidence of disease progression, no new area of metastatic disease Stable to slightly improved metastatic lesion involving the right posterior sacrum Additional stable to improve lesion involving the right T4 vertebral body and posterior fourth rib. Follow-up CT PET scan done on 11/10/2019 showed FDG negative, densely sclerotic osseous metastatic disease, consistent with sterilize malignancy. FDG positive lymph nodes in the right common iliac and mediastinal territories consistent with recurrent active malignancy. MRI scan of thoracic spine done on 11/07/2019 showed blastic well circumcised metastatic lesion involving T1 and T5 vertebral bodies likely previous treated, no significant edema or enhancement. No other visualized metastatic lesion. Mild chronic compression superior endplate T4 with incidental hemangioma Mr Aragon was referred to pulmonology for evaluation of mediastinal lymphadenopathy. He underwent bronchoscopy on 12/07/2019 right middle lobe. Endobronchial biopsy showed benign respiratory mucosa and cartilage. No malignancy identified. His PSA has continued to elevate and had recommended changing him to enzalutamide 160 mg p.o. daily and discontinue the Zytiga/prednisone. He will continue with the Xgeva and Lupron. Xtandi was put on hold on April 14, 2020 because of diarrhea and eventually discontinued, his PSA continues to go up while on docetaxel and on December 17, 2020 his PSA was 84.9 compared to 68.4 on November 17, at that time he was decided to discontinue Taxotere and last dose was given on November 17, 2020, his treatment was discussed and changed to Jevtana on January 08, 2021 will continue on monthly Xgeva and 3 monthly Lupron. Follow-up CT PET scan done on March 28, 2021 shows new sclerotic osseous metastatic disease in the right iliac, T10, T11 bone other lesions in T1, T5 and S1 locations are stable, index right common iliac lymph node seen on prior scan done in October 2019 showed SUV has improved and cluster of lymph node in the right common iliac territory has improved mediastinal lymph nodes also shows improvement, Based on stable findings on CT PET scan although persistently elevated PSA around 90, he was decided to continue with Jevtana/Lupron/Xgeva Plan/Problems Addressed at this Visit: Metastatic prostate cancer. He was initially diagnosed in July 2009. See above for his history. Currently, his PSA continues to go up while CT PET imaging shows no evidence of progression, at this point we will continue with his current plan of care with the Jevtana followed by Kaylene to prevent chemotherapy-induced neutropenia. He has aso been referred for reevaluation with PSMA scan which is more sensitive to detect active prostate cancer. He is scheduled for the PSMA on 07-21-2021 @ [place] in [facility]. A. Proceed with cycle 9 Jevtana at same dosing today. B. Today's labs reviewed and discussed with Mr. Aragon and a copy was given to him. WBC 9.9, hemoglobin 12.6, platelets 232,000 ANC is 8450. Potassium 3.8 creatinine 0.8 LFTs are normal PSA is 106. Weight is stable at 180.8. C. He will continue current antiemetics as they are working well for him. D. He will proceed with denosumab 120 mg daily as his last dose was on June 02, 2021. He is due today. E. His Depo-Lupron was last given on June 02, 2021 and he will not be due for that until August 2021. F. He is also doing monthly B12 injections but that was last given June 23, 2021. G. He will return in 3 weeks at which time hopefully will have the results of the PSMA scan. We requested CBC, CMP and PSA to be done with his next visit. He will be too early to give his Xgeva with that next cycle???cycle 10 Jevtana so may consider changing him to every 6-week denosumab for convenience. He has had frequent visits to the office for B12 injections for denosumab for treatment and this seems like he could be coordinated to save less trips to the office. H. Mr. Aragon was instructed to contact us in interim should questions or problems arise. Signed By: Doretha GarrisonPSlick-TRACEY, AORODDY Davies MD <<Signature on File>>
== END 2021-07-19 23:59 | disposition home or self-care (01) ==
LOC: ONCMED 06:21
PROVIDERS: PCP Internal Medicine; Visit Provider Nurse Practitioner
DX: Z51.12 Encounter for antineoplastic immunotherapy (principal); Z51.11 Encounter for antineoplastic chemotherapy; C61 Malignant neoplasm of prostate; C77.8 Secondary and unspecified malignant neoplasm of lymph nodes of multiple regions; R97.20 Elevated prostate specific antigen [PSA]; Z79.52 Long term (current) use of systemic steroids; R53.82 Chronic fatigue, unspecified; N28.1 Cyst of kidney, acquired; D18.09 Hemangioma of other sites; D51.9 Vitamin B12 deficiency anemia, unspecified; Z79.899 Other long term (current) drug therapy
CPT/HCPCS: 80053; 84153; 85025; 96367; 96372; 96375; 96377; 96413; 99211; 99215; G0103; J0897; J1100; J1200; J2469; J2505; J3420; J3490; J7050; J9043

== ENCOUNTER 2021-07-29 05:46 | Outpatient (RCR) | payer MEDICARE, BC, SELFPAY ==
[2021-07-29 09:27] LABS: Basophils % 0.1 %; Hematocrit 41.1 % (42.0-52.0); Hemoglobin 13.7 g/dL (11.7-16.6); Lymphocytes # 0.8 10^3/uL (0.8-4.8); Lymphocytes % 7.4 %; Mean Corpuscular HGB Conc 33.3 g/dL (30.0-36.0); Mean Corpuscular Hemoglobin 33.2 pg (28.0-34.0); Mean Corpuscular Volume 99.5 fl (80-94); Mean Platelet Volume 9.9 fL (7.4-10.4); Monocytes # 0.9 10^3/uL (0.2-0.9); Monocytes % 7.6 %; Neutrophils # 9.47 10^3/uL (1.8-7.7); Neutrophils % 84.5 %; Nucleated Red Blood Cells % 0 %; Platelet Count 218 10^3/cmm (130-400); Red Blood Count 4.13 10^6/uL (4.1-5.3); Red Cell Distribution Width 13.9 % (12.1-15.1); White Blood Count 11.2 10^3/uL (4.0-10.0)
[2021-07-29 10:07] LABS: Alanine Aminotransferase 10 U/L (0-41); Alkaline Phosphatase 71 IU/L (40-130); Anion Gap 15.5 (5-19); Aspartate Amino Transferase 11 U/L (0-40); Blood Urea Nitrogen 23 mg/dL (8-23); Calcium 9.2 mg/dL (8.5-10.5); Carbon Dioxide 21 mmol/L (22-29); Chloride 102 mmol/L (98-107); Globulin 2.2 g/dL (1.3-4.6); Glucose 82 mg/dL (65-115); Osmolality Calculated 281 mOsm/kg (285-295); Potassium 4.5 mmol/L (3.5-5.1); Sodium 134 mmol/L (136-145); Total Bilirubin 0.5 mg/dL (0.15-1.2); Total Protein 6.2 g/dL (6.6-8.7)
[2021-07-29] MEDS: famotidine 20 mg/2 mL INJ IVP (11:47)
[2021-07-29] MEDS: diphenhydrAMINE 50 mg/mL SDV 1mL 25 MG IV (11:49)
[2021-07-29] MEDS: palonosetron 0.25 mg/5 mL SDV IV (11:52)
[2021-07-29] MEDS: cyanocobalamin 1,000 mcg/mL SDV 1000 MCG SUBCUT (13:40)
--- NOTE | 2021-07-30 08:54 | ONC FU_ITS ---
Dr. Davies follow up note Patient: Oli Aragon Unit #: [id number]: 1935 Dicatated By: Sae Davies M.D.Date of Visit:Jul 29, 2021 Onc Med Follow-up/Prog Note History of Present Illness: Mr. Aragon is an 85-year-old gentleman with history of prostate cancer diagnosed with LUZMARIA in June 2009, with his PSA was 16.8 In July 2009, he underwent biopsy of prostate gland. The final report came back Jim Thorpe score 9 (4+5) and Stephanie's 8 (4+4) CT scan of pelvis in showed right obturator lymph nodes. He was started on chemotherapy/biotherapy/hormonal therapy Lupron. In February 2010, followup study showed partial remission and no evidence of disease on scans. from April 2010 to May 2010, he received radiation therapy to a total of 7800 cGy to prostate and pelvic lymph nodes 4500 cGy. From January 2013 to January 2014, he was treated with Casodex with a PSA response. In January 2016 he was noted to have disease progression lymph node size was increasing on scan and PSA gone up to 12.8 On 08/04/2016 plan was to started Zytiga/prednisone , PSA 13.1. On 08/30/2016 PSA was 25.3. His last dose of Lupron was in January 2017. Initially it was given every 3 months and was changed to every 6 months with followup at [facility]. Zytiga was under consideration but because of cost it was not started as per oncology note from [facility] on 01/17/2017. CT scan of abdomen pelvis done at [facility] on 01/17/2017 showed increasing retroperitoneal and right pelvic lymphadenopathy. A bone scan done on 01/17/2017 showed new foci of uptake involving the sacrum are suspicious for skeletal metastases and new focal uptake at the anterior lateral aspect of the right fourth rib. Which is nonspecific for metastatic versus intraoral trauma. Incidental small right upper lobe pulmonary nodule is nonspecific follow-up suggested. In October 2018 Zytiga was obtained for Mr. Cortes. Mr Aragon was tolerating ADT wit lupron and Zytiga/prednisone well. Follow-up CT PET scan done on 11/10/2019 showed FDG negative, densely sclerotic osseous metastatic disease, consistent with sterilize malignancy. FDG positive lymph nodes in the right common iliac and mediastinal territories consistent with recurrent active malignancy. MRI scan of thoracic spine done on 11/07/2019 showed blastic well circumcised metastatic lesion involving T1 and T5 vertebral bodies likely previous treated, no significant edema or enhancement. No other visualized metastatic lesion. Mild chronic compression superior endplate T4 with incidental hemangioma Mr Aragon was referred to pulmonology for evaluation of mediastinal lymphadenopathy. He underwent bronchoscopy on 12/07/2019 right middle lobe. Endobronchial biopsy showed benign respiratory mucosa and cartilage. No malignancy identified. His PSA has continued to elevate and had recommended changing him to enzalutamide 160 mg p.o. daily and discontinue the Zytiga/prednisone. He will continue with the Xgeva and Lupron. started Xtandi On February 09, 2020 While waiting for repeat bronchoscopy, follow-up CT scan of chest was done on March 05, 2020 which showed stable previously described FDG avid normal and slightly prominent lymph nodes right hilum, left AP window and subcarinal hilar lymph nodes are stable. Subcarinal lymph node is slightly enlarged measuring 11 mm unchanged from previous scan done on November 10, 2019. No evidence of progressive lymphadenopathy. Mild chronic emphysematous changes seen. No acute pulmonary infiltrates. Noncalcified fibrotic appearing nodule right upper lobe measuring 4 mm. Sclerotic FDG negative lesions consistent with treated osseous metastatic disease more prominent at T1, T5 and right fifth rib. Due to persistent severe diarrhea, Xtandi was put on hold on April 14, 2020,Restarted on July 31, 2020 but with low-dose e.g. 80 mg p.o. daily Which was discontinued on August 29, 2020 because of persistent abdominal pain, diarrhea Started on systemic therapy with Taxotere on October 28, 2020, Along with 3 monthly Lupron and Xgeva. While on Taxotere, patient's PSA continue to increase, On December 01, 2020 his PSA was 77.01 compared to 68.44 on November 17 and 46.62 on October 28, 2020, thus follow-up CT scan of chest abdomen pelvis was done on December 11, 2020 which shows suspicious for progression of metastatic bone disease, new lesion in his thoracic spine, ribs and right ilium. And increasing lymph nodes along the right iliac chain measuring about 2.3 x 2.4 cm. No pulmonary nodules, no increase in size of indeterminate bilateral hilar lymph nodes Bone scan done on December 11, 2020 shows mild progression of metastatic bone disease since October 2019, now new lesions in the thoracic vertebrae right ilium and posterior right fifth rib versus scapula. Guardant 360 done on December 17, 2020 showed no obvious targetable therapeutic mutations Mr Aragon started on Jevtana/Prednisone on January 08, 2021 along with monthly Xgeva and 3 monthly Lupron. He has tolerated it well thus far. MRI lumbar spine done on February 02, 2021 showed enhancing metastatic lesion involving right aspect of sacrum S1 unchanged since bone scan done on December 11, 2020, mass measuring 4.2 x 3.9 x 2.1 cm. Enhancing metastatic lesion involving posterior L1 spinous process is also unchanged. No evidence of enhancing epidural disease. Mild right L5-S1 foraminal narrowing. , patient is status post radiation therapy to sacrum in the past . Mr. Aragon has continued treatment with Jevtana, denosumab and Depo-Lupron. Follow-up CT PET scan done on March 28, 2021 showed the index right iliac lymph node seen on prior studies unchanged in size, currently measuring 2 cm but SUV have improved to 5.9 from 11.1 previously. Similarly a cluster of nodes in the right common iliac territories slightly improved. Mediastinal lymph nodes seen on prior studies are still FDG positive but are improved since October 2019 and are again noted in subcarinal, subaortic, right paratracheal, right paraesophageal, bilateral hilar territory. New sclerotic osseous metastatic disease is present in right iliac, T10, T11 bones and other lesions in T1, T5 and right fifth rib and S1 locations are stable He continued treatment and is tolerating Jevtana/Lupron/Xgeva well. Follow-up PSMA scan done on July 21, 2021 showed no abnormal tracer uptake in prostate/prostate bed. There is intense tracer uptake associated with an enlarged right internal iliac lymph node. Extensive right pelvic lymphadenopathy beginning in the right paracaval region just superior to the bifurcation extending along the right common iliac chain with associated intense tracer uptake. There are multiple foci of intense uptake involving spine, including C7, T1, T4, T6, T10 and T11 and posterior spinous process of L1. Additionally multiple moderate to intense foci of radiotracer uptake involving bilateral ribs. And sacrum and right iliac bone. Calcified mediastinal lymph nodes represent sequelae of old granulomatous disease. No other abnormality seen in the lungs except small indeterminate groundglass nodule in the right upper lobe which measures about 3 mm. Came for follow-up, denies any specific complaints, no fever chills, no nausea or vomiting, no diarrhea constipation, no dysuria no hematuria, right hip/leg pain is under control with current management. Tolerating Jevtana well otherwise with excellent quality of life. Denies any back pain denies any rib pains, appetite is good Medications: Ambien 1 Tablet (of 5 mg) Oral at bedtime, diphenhydrAMINE HCl (25 mg) Capsule Oral at bedtime PRN, Lansoprazole (30 mg) Capsule Delayed Release Oral daily, Mirtazapine 1 Tablet (of 15 mg) Oral at bedtime PRN, Ondansetron HCl 1 Tablet (of 4 mg) Oral q 6 hours PRN, predniSONE 1 Tablet (of 10 mg) Oral daily, Tums 1 (500 mg) Tablet, chewable Oral PRN Allergies: No Known Allergies. Review of Systems: Review of Systems is not available for this patient. Vital Signs: Performed on Jul 29, 2021 11:01 Height - 76.00 in Weight - 173.6 lbs (LOW) BSA - 2.09 sq.m BMI - 21.13 Temperature - 97.6 F (LOW) Pulse - 90 /min Respiration - 18 /min BP - 112/66 mm(hg) O2 Sat - 100 % Pain - 0 Fatigue - 6 Performance Status: 1 - No physically strenuous activity, but ambulatory and able to carry out light or sedentary work (e.g. office work, light house work). (ECOG) Physical Examination: ENMT - No mouth sores, no thrush, no jaundice, Respiratory - Lungs are clear to auscultation, Cardiovascular - Regular rate and rhythm of heart, Abdomen - Soft, bowel sounds present, Extremities - No visible edema. Lab/Imaging: Test performed on Jul 07, 2021 08:02 Sodium 139 mmol/L Potassium 3.8 mmol/L Chloride 105 mmol/L CO2 20 mmol/L Anion Gap 17.8 BUN 18 mg/dL Creatinine 0.8 mg/dL Cr Clearance (Est) 78.2300 mL/min Glucose 130 mg/dL Osmolality - Calculated 292 mOsm/kg Calcium 9.1 mg/dL Protein, Total 6.2 g/dL Albumin 4.0 g/dL Globulin 2.2 g/dL Bilirubin, Total 0.4 mg/dL ALT (SGPT) 10 U/L AST (SGOT) 12 U/L Alkaline Phosphatase 89 IU/L WBC 9.9 10 3/uL RBC 3.90 10 6/uL HGB 12.6 g/dL HCT 39.4 % MCV 101.0 fl MCH 32.3 pg MCHC 32.0 g/dL RDW 14.0 % Platelet Count 232 10 3/cmm MPV 10.4 fL Neutrophils 8.45 10 3/uL Lymphocytes 0.9 10 3/uL Monocytes 0.5 10 3/uL Eosinophils 0.0 10 3/uL Basophils 0.0 10 3/uL Neutrophil % 85.5 % Lymphocyte % 8.6 % Monocyte % 5.4 % Eosinophil % 0.0 % Basophils % 0.1 % NRBC % 0 % PSA 106.00 ng/mL Impression: Adenocarcinoma of prostate,Initially diagnosed in July 2009, status post radiation. Prostate and pelvic lymph nodes in April 2010, now with recurrent with pelvic/retroperitoneal lymphadenopathy and abnormal bone scan. On Lupron at [facility] Bone scan done on 05/11/2017 showed no evidence of bony metastatic disease Rising PSA while on Lupron Started on zytiga 1000 mg po qd and prednisone 5 mg twice a day on 06/08/2017 in his PSA on June 06/2017 was 134 Fatigue probably multifactorial including hormone withdrawal recent History of fall from the tree, with injury to tailbone and right ribs Bone scan done on 07/20/2017 at [facility] showed 2 new lesions, one in the region of T2 and on in the pelvis likely skeletal metastasis. Multiple ribs lesions probably due to trauma Chest x-ray done on 09/26/2017 showed normal visualized bone structures. No acute changes bone scan done on 09/28/2007 showed metastatic bone disease is stable with no progression or improvement since 07/20/2017 CT scan of abdomen pelvis done on 07/20/2017 at [facility] showed retroperitoneal lymphadenopathy is stable or slightly smaller soft tissue nodule in the Florence's pouch is unchanged New sclerotic lesion in the right anterior sacrum at S1 -S 3 may represent new focus of bone metastases Bone scan done on 07/24/2018 showed no new focus of increased activity, overall decreased activity of previously noted metastatic/posttraumatic changes since 09/28/2017. Unchanged cervicothoracic spine increase activity, probably related to prior anterior fusion changes. CT scan of pelvis done on 07/24/2018 showed no pelvic lymphadenopathy, a small soft tissue nodule measuring 10 mm inseparable from the right iliac vein, has been present since 01/17/2017 Venous Doppler study right leg shows no DVT CT scan of abdomen pelvis done on every 2018 showed incidental left renal cyst without change Prior appendicectomy Stable right-sided pericaval lymph node. Variable appearance of blastic metastatic lesion right sacral ala and right side of S1 vertebral body bone scan done on 11/03/2018 showed increased uptake in right sacrum stable T4 lesion, and resolution of left costochondral lesions Status post radiation therapy to right sacroiliac area Follow-up bone scan done on 10/29/2019 shows no evidence of disease progression, no new area of metastatic disease Stable to slightly improved metastatic lesion involving the right posterior sacrum Additional stable to improve lesion involving the right T4 vertebral body and posterior fourth rib. Follow-up CT PET scan done on 11/10/2019 showed FDG negative, densely sclerotic osseous metastatic disease, consistent with sterilize malignancy. FDG positive lymph nodes in the right common iliac and mediastinal territories consistent with recurrent active malignancy. MRI scan of thoracic spine done on 11/07/2019 showed blastic well circumcised metastatic lesion involving T1 and T5 vertebral bodies likely previous treated, no significant edema or enhancement. No other visualized metastatic lesion. Mild chronic compression superior endplate T4 with incidental hemangioma Mr Aragon was referred to pulmonology for evaluation of mediastinal lymphadenopathy. He underwent bronchoscopy on 12/07/2019 right middle lobe. Endobronchial biopsy showed benign respiratory mucosa and cartilage. No malignancy identified. His PSA has continued to elevate and had recommended changing him to enzalutamide 160 mg p.o. daily and discontinue the Zytiga/prednisone. He will continue with the Xgeva and Lupron. Xtandi was put on hold on April 14, 2020 because of diarrhea and eventually discontinued, his PSA continues to go up while on docetaxel and on December 17, 2020 his PSA was 84.9 compared to 68.4 on November 17, at that time he was decided to discontinue Taxotere and last dose was given on November 17, 2020, his treatment was discussed and changed to Jevtana on January 08, 2021 will continue on monthly Xgeva and 3 monthly Lupron. Follow-up CT PET scan done on March 28, 2021 shows new sclerotic osseous metastatic disease in the right iliac, T10, T11 bone other lesions in T1, T5 and S1 locations are stable, index right common iliac lymph node seen on prior scan done in October 2019 showed SUV has improved and cluster of lymph node in the right common iliac territory has improved mediastinal lymph nodes also shows improvement, Based on stable findings on CT PET scan although persistently elevated PSA around 90, he was decided to continue with Jevtana/Lupron/Xgeva Plan: Discussed with patient regarding his labs white blood count 11.2 hemoglobin 13.7 hematocrit 41.1 platelets 218,000 CMP within normal limits PSA 120.6 compared to 106.0 on July 07, 2021 and also discussed about his recently done PSMA scan findings which shows no evidence of mediastinal lymphadenopathy which was seen on previous CT scan of chest but right pelvic lymphadenopathy and extensive bone mets Clinically, patient is doing well, with excellent palliation with Jevtana, tolerating well but his PSA continue to progress and recently done PSMA scan showed right pelvic lymphadenopathy and extensive bone mets apparently no significant abnormality in the mediastinal or in the chest. Considering his age and scan findings, it appears palliative therapy with Jevtana is providing decent disease control and maintaining good quality of life although his labs shows progressive PSA. At this point, various treatment options were discussed including hormone holiday e.g. holding Lupron to see if that improves his PSA level or switching his therapy to another agent or adding carboplatin or continue with same treatment. Patient agreed to hold Lupron this time but will proceed with Jevtana and Xgeva and then patient return to clinic in 3 weeks with CBC CMP and PSA, Signed By: Sae Davies M.D. <<Signature on File>>
== END 2021-08-18 23:59 | disposition home or self-care (01) ==
LOC: ONCMED 05:46
PROVIDERS: PCP Internal Medicine; Visit Provider Internal Medicine Hematology & Oncology
DX: Z51.12 Encounter for antineoplastic immunotherapy (principal); Z51.11 Encounter for antineoplastic chemotherapy; C61 Malignant neoplasm of prostate; C77.5 Secondary and unspecified malignant neoplasm of intrapelvic lymph nodes; R97.20 Elevated prostate specific antigen [PSA]; Z86.718 Personal history of other venous thrombosis and embolism; Z79.899 Other long term (current) drug therapy
CPT/HCPCS: 80053; 84153; 85025; 96367; 96372; 96375; 96413; 99215; J1100; J1200; J2469; J3420; J3490; J7050; J9043

== ENCOUNTER 2021-08-19 06:08 | Outpatient (RCR) | payer MEDICARE, BC, SELFPAY ==
[2021-08-19 09:37] LABS: Basophils % 0.1 %; Hematocrit 37.2 % (42.0-52.0); Hemoglobin 12.6 g/dL (11.7-16.6); Lymphocytes # 0.6 10^3/uL (0.8-4.8); Lymphocytes % 6.7 %; Mean Corpuscular HGB Conc 33.9 g/dL (30.0-36.0); Mean Corpuscular Hemoglobin 32.4 pg (28.0-34.0); Mean Corpuscular Volume 95.6 fl (80-94); Monocytes # 0.5 10^3/uL (0.2-0.9); Monocytes % 6.1 %; Neutrophils # 7.14 10^3/uL (1.8-7.7); Neutrophils % 86.9 %; Nucleated Red Blood Cells % 0 %; Platelet Count 214 10^3/cmm (130-400); Red Blood Count 3.89 10^6/uL (4.1-5.3); Red Cell Distribution Width 13.3 % (12.1-15.1); White Blood Count 8.2 10^3/uL (4.0-10.0)
[2021-08-19 10:09] LABS: Alanine Aminotransferase 9 U/L (0-41); Albumin Level 3.8 g/dL (3.5-5.2); Alkaline Phosphatase 50 IU/L (40-130); Anion Gap 15.5 (5-19); Aspartate Amino Transferase 10 U/L (0-40); Blood Urea Nitrogen 19 mg/dL (8-23); Calcium 8.7 mg/dL (8.5-10.5); Carbon Dioxide 22 mmol/L (22-29); Chloride 107 mmol/L (98-107); Globulin 1.9 g/dL (1.3-4.6); Glucose 99 mg/dL (65-115); Osmolality Calculated 292 mOsm/kg (285-295); Potassium 4.5 mmol/L (3.5-5.1); Sodium 140 mmol/L (136-145); Total Bilirubin 0.3 mg/dL (0.15-1.2); Total Protein 5.7 g/dL (6.6-8.7)
[2021-08-19] MEDS: sodium chloride 0.9% 250 ML 75 ML IV (10:45)
[2021-08-19] MEDS: palonosetron 0.25 mg/5 mL SDV IV (10:45)
[2021-08-19] MEDS: famotidine 20 mg/2 mL INJ IVP (10:46)
[2021-08-19] MEDS: diphenhydrAMINE 50 mg/mL SDV 1mL 25 MG IV (10:48)
[2021-08-19] MEDS: cyanocobalamin 1,000 mcg/mL SDV 1000 MCG SUBCUT (10:50)
[2021-08-19] MEDS: denosumab 120 mg SDV SUBCUT (10:59)
[2021-08-19] MEDS: pegfilgrastim 6 mg/0.6 mL Kit (onpro) SUBCUT (13:30)
--- NOTE | 2021-08-21 12:56 | ONC FU_ITS ---
Dr. Davies follow up note Patient: Oli Aragon Unit #: [id number]: 1935 Dicatated By: Sae Davies M.D.Date of Visit:Aug 19, 2021 Onc Med Follow-up/Prog Note History of Present Illness: Mr. Aragon is an 85-year-old gentleman with history of prostate cancer diagnosed with LUZMARIA in June 2009, with his PSA was 16.8 In July 2009, he underwent biopsy of prostate gland. The final report came back [place] score 9 (4+5) and Stephanie's 8 (4+4) CT scan of pelvis in showed right obturator lymph nodes. He was started on chemotherapy/biotherapy/hormonal therapy Lupron. In February 2010, followup study showed partial remission and no evidence of disease on scans. from April 2010 to May 2010, he received radiation therapy to a total of 7800 cGy to prostate and pelvic lymph nodes 4500 cGy. From January 2013 to January 2014, he was treated with Casodex with a PSA response. In January 2016 he was noted to have disease progression lymph node size was increasing on scan and PSA gone up to 12.8 On 08/04/2016 plan was to started Zytiga/prednisone , PSA 13.1. On 08/30/2016 PSA was 25.3. His last dose of Lupron was in January 2017. Initially it was given every 3 months and was changed to every 6 months with followup at [facility]. Zytiga was under consideration but because of cost it was not started as per oncology note from [facility] on 01/17/2017. CT scan of abdomen pelvis done at [facility] on 01/17/2017 showed increasing retroperitoneal and right pelvic lymphadenopathy. A bone scan done on 01/17/2017 showed new foci of uptake involving the sacrum are suspicious for skeletal metastases and new focal uptake at the anterior lateral aspect of the right fourth rib. Which is nonspecific for metastatic versus intraoral trauma. Incidental small right upper lobe pulmonary nodule is nonspecific follow-up suggested. In October 2018 Zytiga was obtained for Mr. Cortes. Mr Aragon was tolerating ADT wit lupron and Zytiga/prednisone well. Follow-up CT PET scan done on 11/10/2019 showed FDG negative, densely sclerotic osseous metastatic disease, consistent with sterilize malignancy. FDG positive lymph nodes in the right common iliac and mediastinal territories consistent with recurrent active malignancy. MRI scan of thoracic spine done on 11/07/2019 showed blastic well circumcised metastatic lesion involving T1 and T5 vertebral bodies likely previous treated, no significant edema or enhancement. No other visualized metastatic lesion. Mild chronic compression superior endplate T4 with incidental hemangioma Mr Aragon was referred to pulmonology for evaluation of mediastinal lymphadenopathy. He underwent bronchoscopy on 12/07/2019 right middle lobe. Endobronchial biopsy showed benign respiratory mucosa and cartilage. No malignancy identified. His PSA has continued to elevate and had recommended changing him to enzalutamide 160 mg p.o. daily and discontinue the Zytiga/prednisone. He will continue with the Xgeva and Lupron. started Xtandi On February 09, 2020 While waiting for repeat bronchoscopy, follow-up CT scan of chest was done on March 05, 2020 which showed stable previously described FDG avid normal and slightly prominent lymph nodes right hilum, left AP window and subcarinal hilar lymph nodes are stable. Subcarinal lymph node is slightly enlarged measuring 11 mm unchanged from previous scan done on November 10, 2019. No evidence of progressive lymphadenopathy. Mild chronic emphysematous changes seen. No acute pulmonary infiltrates. Noncalcified fibrotic appearing nodule right upper lobe measuring 4 mm. Sclerotic FDG negative lesions consistent with treated osseous metastatic disease more prominent at T1, T5 and right fifth rib. Due to persistent severe diarrhea, Xtandi was put on hold on April 14, 2020,Restarted on July 31, 2020 but with low-dose e.g. 80 mg p.o. daily Which was discontinued on August 29, 2020 because of persistent abdominal pain, diarrhea Started on systemic therapy with Taxotere on October 28, 2020, Along with 3 monthly Lupron and Xgeva. While on Taxotere, patient's PSA continue to increase, On December 01, 2020 his PSA was 77.01 compared to 68.44 on November 17 and 46.62 on October 28, 2020, thus follow-up CT scan of chest abdomen pelvis was done on December 11, 2020 which shows suspicious for progression of metastatic bone disease, new lesion in his thoracic spine, ribs and right ilium. And increasing lymph nodes along the right iliac chain measuring about 2.3 x 2.4 cm. No pulmonary nodules, no increase in size of indeterminate bilateral hilar lymph nodes Bone scan done on December 11, 2020 shows mild progression of metastatic bone disease since October 2019, now new lesions in the thoracic vertebrae right ilium and posterior right fifth rib versus scapula. Guardant 360 done on December 17, 2020 showed no obvious targetable therapeutic mutations Mr Aragon started on Jevtana/Prednisone on January 08, 2021 along with monthly Xgeva and 3 monthly Lupron. He has tolerated it well thus far. MRI lumbar spine done on February 02, 2021 showed enhancing metastatic lesion involving right aspect of sacrum S1 unchanged since bone scan done on December 11, 2020, mass measuring 4.2 x 3.9 x 2.1 cm. Enhancing metastatic lesion involving posterior L1 spinous process is also unchanged. No evidence of enhancing epidural disease. Mild right L5-S1 foraminal narrowing. , patient is status post radiation therapy to sacrum in the past . Mr. Aragon has continued treatment with Jevtana, denosumab and Depo-Lupron. Follow-up CT PET scan done on March 28, 2021 showed the index right iliac lymph node seen on prior studies unchanged in size, currently measuring 2 cm but SUV have improved to 5.9 from 11.1 previously. Similarly a cluster of nodes in the right common iliac territories slightly improved. Mediastinal lymph nodes seen on prior studies are still FDG positive but are improved since October 2019 and are again noted in subcarinal, subaortic, right paratracheal, right paraesophageal, bilateral hilar territory. New sclerotic osseous metastatic disease is present in right iliac, T10, T11 bones and other lesions in T1, T5 and right fifth rib and S1 locations are stable He continued treatment and is tolerating Jevtana/Lupron/Xgeva well. Follow-up PSMA scan done on July 21, 2021 showed no abnormal tracer uptake in prostate/prostate bed. There is intense tracer uptake associated with an enlarged right internal iliac lymph node. Extensive right pelvic lymphadenopathy beginning in the right paracaval region just superior to the bifurcation extending along the right common iliac chain with associated intense tracer uptake. There are multiple foci of intense uptake involving spine, including C7, T1, T4, T6, T10 and T11 and posterior spinous process of L1. Additionally multiple moderate to intense foci of radiotracer uptake involving bilateral ribs. And sacrum and right iliac bone. Calcified mediastinal lymph nodes represent sequelae of old granulomatous disease. No other abnormality seen in the lungs except small indeterminate groundglass nodule in the right upper lobe which measures about 3 mm. Came for follow-up, denies any specific complaint except off and on right hip/thigh pain, now not being controlled with Aleve. No dysuria or hematuria but sometimes sudden stoppage and then by changing position restore urination. Denies any fever chills denies any nausea or vomiting denies any diarrhea or constipation denies any urine or stool incontinence but sometimes constipation. Tolerating Jevtana/Xgeva well, Holding Lupron for the time being Medications: Ambien 1 Tablet (of 5 mg) Oral at bedtime, diphenhydrAMINE HCl (25 mg) Capsule Oral at bedtime PRN, Lansoprazole (30 mg) Capsule Delayed Release Oral daily, Mirtazapine 1 Tablet (of 15 mg) Oral at bedtime PRN, Ondansetron HCl 1 Tablet (of 4 mg) Oral q 6 hours PRN, predniSONE 1 Tablet (of 10 mg) Oral daily, Tums 1 (500 mg) Tablet, chewable Oral PRN Allergies: No Known Allergies. Review of Systems: Review of Systems is not available for this patient. Vital Signs: Performed on Aug 19, 2021 11:01 Height - 76.00 in Weight - 178.2 lbs (HIGH) BSA - 2.11 sq.m BMI - 21.69 Temperature - 97.7 F (LOW) Pulse - 73 /min Respiration - 18 /min BP - 126/70 mm(hg) O2 Sat - 95 % (LOW) Pain - 6 Fatigue - 5 Performance Status: 0 - Fully active, able to carry on all predisease activities without restrictions. (ECOG) Physical Examination: ENMT - No mouth sores, no thrush, no jaundice, Respiratory - Lungs are clear to auscultation, Cardiovascular - Regular rate and rhythm of heart, Abdomen - Soft, bowel sounds present, Extremities - No visible edema. Lab/Imaging: Test performed on Jul 07, 2021 08:02 Sodium 139 mmol/L Potassium 3.8 mmol/L Chloride 105 mmol/L CO2 20 mmol/L Anion Gap 17.8 BUN 18 mg/dL Creatinine 0.8 mg/dL Cr Clearance (Est) 78.2300 mL/min Glucose 130 mg/dL Osmolality - Calculated 292 mOsm/kg Calcium 9.1 mg/dL Protein, Total 6.2 g/dL Albumin 4.0 g/dL Globulin 2.2 g/dL Bilirubin, Total 0.4 mg/dL ALT (SGPT) 10 U/L AST (SGOT) 12 U/L Alkaline Phosphatase 89 IU/L WBC 9.9 10 3/uL RBC 3.90 10 6/uL HGB 12.6 g/dL HCT 39.4 % MCV 101.0 fl MCH 32.3 pg MCHC 32.0 g/dL RDW 14.0 % Platelet Count 232 10 3/cmm MPV 10.4 fL Neutrophils 8.45 10 3/uL Lymphocytes 0.9 10 3/uL Monocytes 0.5 10 3/uL Eosinophils 0.0 10 3/uL Basophils 0.0 10 3/uL Neutrophil % 85.5 % Lymphocyte % 8.6 % Monocyte % 5.4 % Eosinophil % 0.0 % Basophils % 0.1 % NRBC % 0 % PSA 106.00 ng/mL Impression: Adenocarcinoma of prostate,Initially diagnosed in July 2009, status post radiation. Prostate and pelvic lymph nodes in April 2010, now with recurrent with pelvic/retroperitoneal lymphadenopathy and abnormal bone scan. [place] [facility] [place] done on 05/11/2017 showed no evidence of bony metastatic disease Rising PSA while on Lupron Started on zytiga 1000 mg po qd and prednisone 5 mg twice a day on 06/08/2017 in his PSA on June 06/2017 was 134 Fatigue probably multifactorial including hormone withdrawal recent History of fall from the tree, with injury to tailbone and right ribs Bone scan done on 07/20/2017 at [facility] showed 2 new lesions, one in the region of T2 and on in the pelvis likely skeletal metastasis. Multiple ribs lesions probably due to trauma Chest x-ray done on 09/26/2017 showed normal visualized bone structures. No acute changes bone scan done on 09/28/2007 showed metastatic bone disease is stable with no progression or improvement since 07/20/2017 CT scan of abdomen pelvis done on 07/20/2017 at [facility] showed retroperitoneal lymphadenopathy is stable or slightly smaller soft tissue nodule in the Florence's pouch is unchanged New sclerotic lesion in the right anterior sacrum at S1 -S 3 may represent new focus of bone metastases Bone scan done on 07/24/2018 showed no new focus of increased activity, overall decreased activity of previously noted metastatic/posttraumatic changes since 09/28/2017. Unchanged cervicothoracic spine increase activity, probably related to prior anterior fusion changes. CT scan of pelvis done on 07/24/2018 showed no pelvic lymphadenopathy, a small soft tissue nodule measuring 10 mm inseparable from the right iliac vein, has been present since 01/17/2017 Venous Doppler study right leg shows no DVT CT scan of abdomen pelvis done on 2018 showed incidental left renal cyst without change Prior appendicectomy Stable right-sided pericaval lymph node. Variable appearance of blastic metastatic lesion right sacral ala and right side of S1 vertebral body bone scan done on 11/03/2018 showed increased uptake in right sacrum stable T4 lesion, and resolution of left costochondral lesions Status post radiation therapy to right sacroiliac area Follow-up bone scan done on 10/29/2019 shows no evidence of disease progression, no new area of metastatic disease Stable to slightly improved metastatic lesion involving the right posterior sacrum Additional stable to improve lesion involving the right T4 vertebral body and posterior fourth rib. Follow-up CT PET scan done on 11/10/2019 showed FDG negative, densely sclerotic osseous metastatic disease, consistent with sterilize malignancy. FDG positive lymph nodes in the right common iliac and mediastinal territories consistent with recurrent active malignancy. MRI scan of thoracic spine done on 11/07/2019 showed blastic well circumcised metastatic lesion involving T1 and T5 vertebral bodies likely previous treated, no significant edema or enhancement. No other visualized metastatic lesion. Mild chronic compression superior endplate T4 with incidental hemangioma Mr Aragon was referred to pulmonology for evaluation of mediastinal lymphadenopathy. He underwent bronchoscopy on 12/07/2019 right middle lobe. Endobronchial biopsy showed benign respiratory mucosa and cartilage. No malignancy identified. His PSA has continued to elevate and had recommended changing him to enzalutamide 160 mg p.o. daily and discontinue the Zytiga/prednisone. He will continue with the Xgeva and Lupron. Xtandi was put on hold on April 14, 2020 because of diarrhea and eventually discontinued, his PSA continues to go up while on docetaxel and on December 17, 2020 his PSA was 84.9 compared to 68.4 on November 17, at that time he was decided to discontinue Taxotere and last dose was given on November 17, 2020, his treatment was discussed and changed to Jevtana on January 08, 2021 will continue on monthly Xgeva and 3 monthly Lupron. Follow-up CT PET scan done on March 28, 2021 shows new sclerotic osseous metastatic disease in the right iliac, T10, T11 bone other lesions in T1, T5 and S1 locations are stable, index right common iliac lymph node seen on prior scan done in October 2019 showed SUV has improved and cluster of lymph node in the right common iliac territory has improved mediastinal lymph nodes also shows improvement, Based on stable findings on CT PET scan although persistently elevated PSA around 90, he was decided to continue with Jevtana/Lupron/Xgeva Plan: Discussed with patient regarding his labs white blood count 8.2 hemoglobin 12.6 hematocrit 37.2 platelets 214,000 CMP within normal limits PSA 151.4 compared to 120 previously Clinically, patient is doing reasonably well, with good palliation, tolerating Jevtana well, will proceed with next dose today and then her return to clinic in 3 weeks with CBC CMP and he will also get his monthly dose of Xgeva today, his Lupron is on hold to see if hormonal withdrawal can improve PSA, As far as off and on right hip/thigh pain is concerned, we will try Percocet 5/325 1 to 2 tablet 4 to 6-hour. If his PSA continues to go up, will consider adding carboplatin, patient wants to wait till [place]. Signed By: Sae Davies M.D. <<Signature on File>>
== END 2021-09-09 12:00 | disposition home or self-care (01) ==
LOC: ONCMED 06:08
PROVIDERS: PCP Internal Medicine; Visit Provider Internal Medicine Hematology & Oncology
DX: Z51.12 Encounter for antineoplastic immunotherapy (principal); Z51.11 Encounter for antineoplastic chemotherapy; C61 Malignant neoplasm of prostate; C77.8 Secondary and unspecified malignant neoplasm of lymph nodes of multiple regions; C79.51 Secondary malignant neoplasm of bone; M85.80 Other specified disorders of bone density and structure, unspecified site; R97.20 Elevated prostate specific antigen [PSA]; R53.83 Other fatigue; Z79.52 Long term (current) use of systemic steroids; Z79.818 Long term (current) use of other agents affecting estrogen receptors and estrogen levels; Z79.899 Other long term (current) drug therapy
CPT/HCPCS: 80053; 84153; 85025; 96367; 96372; 96375; 96413; 99215; J0897; J1100; J1200; J2469; J2505; J3420; J3490; J7050; J9043

== ENCOUNTER 2021-09-09 12:14 | Observation (INO) | payer MEDICARE, BC, SELFPAY ==
[2021-09-09] VITALS (9 sets, daily range): BP systolic 102–125; BP diastolic 63–94; PULSE 53–120; RESP 14–20; TEMP 36.6; O2SAT 93–95; BMI 21.2
--- NOTE | 2021-09-09 12:29 | ED_ITS ---
HPI - Chest Pain General: Chief Complaint: Chest Pain Stated Complaint: CHEST PAIN/ DIZZINESS/ AFIB Time Seen by Provider: 09/09/21 12:29 History of Present Illness: HPI narrative: Mr. Aragon is an 85-year-old man with history of prostate cancer currently on treatment who presents to the emergency department due to chest pain and A. fib with RVR. He denies known cardiac history. He has been at his baseline health. This morning, without known specific provoking factor while driving, he developed sudden onset of superior chest discomfort bilaterally with radiation to back. He had associated lightheadedness and racing heart. He pulled over his car and called his daughter who subsequently brought him to the ambulance garage. He was found at that time to be in atrial fibrillation with RVR. Heart rates was 140s to 160s. He received 1 L bolus of IV fluids, 20 mg bolus of Cardizem and was subsequently started on a Cardizem drip. He currently feels improved. Overall the intensity of his symptoms was moderate to severe. Denies similar episodes in the past. No other specific provoking, exacerbating, or alleviating factors identified. Review of Systems General: Reports: 10 or more systems reviewed and unremarkable except in HPI and below PFSH ED PFSH: Medical History Adenocarcinoma of prostate C. difficile colitis Mediastinal adenopathy (Unknown) Surgical History H/O neck surgery History of appendectomy Family History Other Cancer Stroke Social History Smoking and tobacco status: former smoker Quit status (tobacco): has quit using tobacco Year quit tobacco: 1970 - 1PPD x 5 Years Second hand smoke exposure: No Alcohol intake: former Lives independently: Yes Household members: spouse Marital status: Current occupational status: retired History of recent travel: No Current gender identity: Male Physical Exam Narrative: EXAM NARRATIVE: GENERAL/CONSTITUTIONAL -mildly ill-appearing. Eyes - PERRL, no conjunctival injection ENMT - Atraumatic external nose and ears. NECK - supple. trachea midline CARDIOVASCULAR -tachycardic rate and irregular rhythm. Peripheral pulses 2+ and equal RESPIRATORY -clear to auscultation bilaterally. ABDOMEN/GI - Nontender/Nondistended. MSK - Extremities without obvious deformity or tenderness to palpation SKIN - Warm, Dry NEURO - alert and appropriately oriented. Moves all extremities equally. Course ED course: - Patient was seen and evaluated by me at bedside - Patient placed on cardiac monitors, IV access obtained - Initial evaluation notable for A. fib with RVR - Patient continued on Cardizem drip which did have improvement rate prior to additional therapy ordered - Labs notable for mild leukocytosis, normal hemoglobin. No acute electrolyte derangement to explain symptoms. Delta troponin is intermediate range, 6-hour pending at time of admission. - Imaging notable for ill-defined opacities in the right upper lobe and left midlung. Given elevated D-dimer CTA ordered. CTA negative for PE, patient does have metastatic disease. - Upon serial reexamination after treatment the patient was improved mildly though still requiring drip - Based on patient history, evaluation, labs, and imaging as interpreted the most likely cause of the patient's condition is new onset atrial fibrillation with RVR - The results of ED evaluation were discussed with the patient including plan for admission due to requirement for level of care not available if discharged to prevent significant worsening/deterioration. -Hospitalist service contacted and agreed admit the patient. - Patient was admitted without further deterioration or significant events. Vital Signs: Vital signs: Vital Signs Temperature 98.6 F 09/10/21 11:21 Pulse Rate 61 09/10/21 11:21 Respiratory Rate 18 09/10/21 11:21 Blood Pressure 141/81 09/10/21 11:21 Pulse Oximetry 95 09/10/21 11:21 MDM - Chest Pain Medical Records: Attestation: I reviewed the patient's medical records. Lab Data: Attestation: I reviewed the patient's lab results. Labs: Lab Results 09/09/21 09/09/21 09/09/21 12:50 12:50 12:50 WBC 12.9 10^3/uL H 10 ^3/uL (4.0-10.0) RBC 4.38 10^6/uL 10^6 /uL (4.1-5.3) Hgb 13.8 g/dL g/dL (11.7-16.6) Hct 43.7 % % (42.0-52.0) MCV 99.8 fl H fl (80-94) MCH 31.5 pg pg (28.0-34.0) MCHC 31.6 g/dL g/dL (30.0-36.0) RDW 14.1 % % (12.1-15.1) Plt Count 234 10^3/cmm 10^3 /cmm (130-400) MPV 9.8 fL fL (7.4-10.4) Neut % (Auto) 90.9 % % Lymph % (Auto) 5.2 % % [place] % (Auto) 2.9 % % Eos % (Auto) 0.2 % % Baso % (Auto) 0.3 % % Neut # (Auto) 11.77 10^3/uL H 1 0^3/uL (1.8-7.7) Lymph # (Auto) 0.7 10^3/uL L 10^ 3/uL (0.8-4.8) [place] # (Auto) 0.4 10^3/uL 10^3/ uL (0.2-0.9) Eos # (Auto) 0.0 10^3/uL 10^3/ uL (0.0-0.8) Baso # (Auto) 0.0 10^3/uL 10^3/ uL (0.0-0.1) Nucleated RBC % (a uto) 0 % % Nucleated RBCs # 0.0 /100WBC /100W BC D-Dimer Sodium 137 mmol/L mmol/L (136-145) Potassium 4.6 mmol/L mmol/L (3.5-5.1) Chloride 102 mmol/L mmol/L (98-107) Carbon Dioxide 21 mmol/L L mmol/ L (22-29) Anion Gap 18.6 (5-19) BUN 18 mg/dL mg/dL (8-23) Creatinine 1.0 mg/dL mg/dL (0.7-1.2) GFR Calculation Not Reportable Glucose 90 mg/dL mg/dL (65-115) Calculated Osmolal ity 285 mOsm/kg mOsm/ kg (285-295) Calcium 8.7 mg/dL mg/dL (8.5-10.5) Magnesium 1.7 mg/dL mg/dL (1.7-2.3) Total Bilirubin 0.5 mg/dL mg/dL (0.15-1.2) AST 21 U/L U/L (0-40) ALT 16 U/L U/L (0-41) Alkaline Phosphata se 77 IU/L IU/L (40-130) Troponin T Baselin e 37 ng/L H ng/L (0-15) Troponin T 120 Min [place] Delta Troponin T NT-Pro-B Natriuret Pep 226 pg/mL pg/mL (0-450) Total Protein 6.2 g/dL L g/dL (6.6-8.7) Albumin 4.1 g/dL g/dL (3.5-5.2) Globulin 2.1 g/dL g/dL (1.3-4.6) TSH 1.36 uIU/mL uIU/m L (0.27-4.20) 09/09/21 09/09/21 13:50 14:42 WBC RBC Hgb Hct MCV MCH MCHC RDW Plt Count MPV Neut % (Auto) Lymph % (Auto) [place] % (Auto) Eos % (Auto) Baso % (Auto) Neut # (Auto) Lymph # (Auto) [place] # (Auto) Eos # (Auto) Baso # (Auto) Nucleated RBC % (a uto) Nucleated RBCs # D-Dimer 1.42 ug/mIFEU H u g/mIFEU (0-0.59) Sodium Potassium Chloride Carbon Dioxide Anion Gap BUN Creatinine GFR Calculation Glucose Calculated Osmolal ity Calcium Magnesium Total Bilirubin AST ALT Alkaline Phosphata se Troponin T Baselin e Troponin T 120 Min [place] 42.10 ng/L H ng/L (0-15) Delta Troponin T 5.10 ABS# ABS# (0-10) NT-Pro-B Natriuret Pep Total Protein Albumin Globulin TSH EKG Data^: EKG 1: Attestation: I personally reviewed and interpreted this EKG as follows: EKG interpretation date: 09/09/21 EKG interpretation time: 12:39 Interpretation: Twelve-lead EKG shows a irregular rhythm at a rate of 82. CO interval 174, QRS duration 133, QTc 443. Left axis deviation. Interpretation: Sinus arrhythmia with nonspecific ST segment abnormalities.. Interventricular conduction delay. EKG 2: Attestation: I personally reviewed and interpreted this EKG as follows: EKG interpretation date: 09/09/21 EKG interpretation time: 14:18 Interpretation: Twelve-lead EKG shows a regular rhythm at a rate of 67. CO interval 173, QRS duration 140, QTc 439. Borderline axis. Interpretation: Sinus rhythm. Right bundle branch block. Nonspecific ST segment abnormalities Discharge Plan Discharge Patient Disposition: Placed in Observation Admit Provider: Ritika Mitchell Clinical Impression: Chest pain, Atrial fibrillation, new onset, Atrial fibrillation with rapid ventricular response Discharge Diet: Cardiac Discharge Activity: Increase activity as tolerated Coding Level of Care Code ED Electric Refrigerator Preparer for Chg Kamila
--- NOTE | 2021-09-09 12:31 | XRR_ITS ---
PROCEDURE INFORMATION: Exam: XR Chest Exam date and time: 09/09/2021 12:31 PM Age: 85 years old Clinical indication: Pain; Radiating; Patient HX: This morning, without known specific provoking factor while driving, he developed sudden onset of superior chest discomfort bilaterally with radiation to back. ; Additional info: Afib w rvr, chest pain TECHNIQUE: Imaging protocol: XR of the chest. Views: 1 view. COMPARISON: CR XR ribs LT mn 3V w CXR1V [id number] 06/11/2021 10:08 AM FINDINGS: Tubes, catheters and devices: Right chest port terminates in the distal SVC. Lungs: Hyperinflated lungs. Ill-defined opacity in the peripheral right upper lung. Some nodular opacities also noted in the peripheral left mid lung. Linear atelectasis or scarring at the left lung base. Pleural spaces: Unremarkable. No pleural effusion. No pneumothorax. Heart/Mediastinum: Unremarkable. No cardiomegaly. Bones/joints: ACDF noted in the mid cervical spine. Visualized osseous structures are intact. XR/XR chest 1V portable [id number] IMPRESSION: Nonspecific ill-defined opacity in the peripheral right upper lung and nodular opacities in the peripheral left mid lung.
--- NOTE | 2021-09-09 12:32 | ECG_ITS ---
[facility], 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 Measurements Intervals [place] Rate: 82 P: 47 NV: 174 QRS: 268 QRSD: 133 T: 42 QT: 404 QTc: 474 Interpretive Statements SINUS RHYTHM WITH OCCASIONAL SUPRAVENTRICULAR PREMATURE COMPLEXES RIGHT AXIS DEVIATION [QRS AXIS > 100] RIGHT BUNDLE BRANCH BLOCK [120+ ms QRS DURATION, UPRIGHT V1, 40+ ms S IN I/aVL/V4/V5/V6] Compared to ECG 12/07/2019 08:24:24 Right-axis deviation now present Sinus bradycardia no longer present Left anterior fascicular block no longer present Electronically Signed On 09-10-2021 8:50:04 ACCOUNTING MACHINE SERVICER by Fredis Franklin M.D. [id number]
[2021-09-09 13:04] LABS: Basophils % 0.3 %; Eosinophils % 0.2 %; Hematocrit 43.7 % (42.0-52.0); Hemoglobin 13.8 g/dL (11.7-16.6); Lymphocytes # 0.7 10^3/uL (0.8-4.8); Lymphocytes % 5.2 %; Mean Corpuscular HGB Conc 31.6 g/dL (30.0-36.0); Mean Corpuscular Hemoglobin 31.5 pg (28.0-34.0); Mean Corpuscular Volume 99.8 fl (80-94); Mean Platelet Volume 9.8 fL (7.4-10.4); Monocytes # 0.4 10^3/uL (0.2-0.9); Monocytes % 2.9 %; Neutrophils # 11.77 10^3/uL (1.8-7.7); Neutrophils % 90.9 %; Nucleated Red Blood Cells % 0 %; Platelet Count 234 10^3/cmm (130-400); Red Blood Count 4.38 10^6/uL (4.1-5.3); Red Cell Distribution Width 14.1 % (12.1-15.1); White Blood Count 12.9 10^3/uL (4.0-10.0)
[2021-09-09 13:23] LABS: Troponin(5th) Baseline 37 ng/L (0-15)
[2021-09-09 13:35] LABS: Alanine Aminotransferase 16 U/L (0-41); Albumin Level 4.1 g/dL (3.5-5.2); Alkaline Phosphatase 77 IU/L (40-130); Blood Urea Nitrogen 18 mg/dL (8-23); Calcium 8.7 mg/dL (8.5-10.5); Carbon Dioxide 21 mmol/L (22-29); Chloride 102 mmol/L (98-107); Globulin 2.1 g/dL (1.3-4.6); Glucose 90 mg/dL (65-115); Magnesium 1.7 mg/dL (1.7-2.3); NT Pro B Type Natriuretic Pept 226 pg/mL (0-450); Osmolality Calculated 285 mOsm/kg (285-295); Sodium 137 mmol/L (136-145); Thyroid Stimulating Hormone 1.36 uIU/mL (0.27-4.20); Total Bilirubin 0.5 mg/dL (0.15-1.2); Total Protein 6.2 g/dL (6.6-8.7)
[2021-09-09 13:38] LABS: Anion Gap 18.6 (5-19); Aspartate Amino Transferase 21 U/L (0-40); Potassium 4.6 mmol/L (3.5-5.1)
[2021-09-09 14:16] LABS: D Dimer 1.42 ug/mIFEU (0-0.59)
--- NOTE | 2021-09-09 14:18 | CTR_ITS ---
PROCEDURE INFORMATION: Exam: CTA Chest With Contrast Exam date and time: 09/09/2021 2:18 PM Age: 85 years old Clinical indication: Chest wall pain; Additional info: D dimer elevated, chest pain, new afib, history of prostate cancer TECHNIQUE: Imaging protocol: Computed tomographic angiography of the chest with contrast. 3D rendering (Not supervised by radiologist): MIP and/or 3D reconstructed images were created by the technologist. Radiation optimization: All CT scans at this facility use at least one of these dose optimization techniques: automated exposure control; mA and/or kV adjustment per patient size (includes targeted exams where dose is matched to clinical indication); or iterative reconstruction. Contrast material: OMNI 350; Contrast volume: 85 ml; Contrast route: INTRAVENOUS (IV); COMPARISON: CT chest abd pel w con* 12/11/2020 10:09 AM RADIATION DOSE METRICS: Total DLP (mGy-cm): 664.82 FINDINGS: Pulmonary arteries: Normal. No pulmonary emboli. Aorta: Borderline ectasia of the ascending thoracic aorta up to 3.8 cm as well as at the aortic arch also up to 3.8 cm. No aortic dissection. Lungs: Minor atelectasis or scarring at the lung bases. No consolidation. No masses. Pleural spaces: Unremarkable. No pneumothorax. No pleural effusion. Heart: Coronary artery calcifications noted. No cardiomegaly. No pericardial effusion. Lymph nodes: Unremarkable. No enlarged lymph nodes. Bones/joints: No acute fracture. Multiple callused anterior mid and lower right rib fractures are noted. Multiple sclerotic metastatic lesions noted most evident at the T1 and T5 vertebral bodies and posterior right 5th rib are not significantly changed from prior study. There are 2 new lesions within the T10 and T11 vertebral bodies which were not seen on prior study. Soft tissues: Unremarkable. CT/CT angio chest PE protcl [id number] IMPRESSION: 1. Negative for pulmonary embolism. No acute findings. 2. Multiple sclerotic osseous metastatic lesions within the spine and ribs. Most are not significantly changed from prior study, however, there are two new lesions within the T10 and T11 vertebral bodies from most recent comparison.
--- NOTE | 2021-09-09 14:32 | ECG_ITS ---
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 Measurements Intervals [place] Rate: 67 P: 46 ND: 173 QRS: -86 QRSD: 140 T: 30 QT: 423 QTc: 449 Interpretive Statements SINUS RHYTHM RIGHT BUNDLE BRANCH BLOCK [120+ ms QRS DURATION, UPRIGHT V1, 40+ ms S IN I/aVL/V4/V5/V6] LEFT ANTERIOR FASCICULAR BLOCK [QRS AXIS <= -45, QR IN I, RS IN II] POSSIBLE SEPTAL MYOCARDIAL INFARCTION , PROBABLY OLD [30 ms Q WAVE IN V1/V2] Compared to ECG 09/09/2021 12:39:12 Left anterior fascicular block now present Myocardial infarct finding now present Right-axis deviation no longer present Electronically Signed On 09-10-2021 9:16:56 SPORTS PHYSICAL THERAPIST by Fredis Franklin M.D. [id number]
[2021-09-09] MEDS: iohexol 350 mg/mL 100 mL Btl IV (15:34)
--- NOTE | 2021-09-09 16:47 | P.HP_ITS ---
Providers/Chief Complaint Primary Care Provider: Anatoly Ochoa MD Chief Complaint: CHEST PAIN/ DIZZINESS/ AFIB History of Present Illness Oli Aragon is a 85 year old male history of prostate cancer, densely sclerotic osseous metastatic disease T1, T5, T4, incidental meningioma, benign mediastinal lymphadenopathy follows up with Dr. Davies presented today for chest discomfort. Patient is stating that today when he was driving around 10 AM after about 5 minutes he start experiencing chest discomfort and some pressure- like sensation around his neck, he was very uncomfortable with this feeling, he pulled over, 911 was called. He was diagnosed with A. fib RVR, he was given 20 mg of Cardizem IV push which improved his heart rate. With use of Cardizem drip his A. fib converted to normal sinus rhythm, patient chest pain and symptoms improved. No recent fever, nausea, vomiting, his constipation and diarrhea alternates, no recent falls, no history of syncope, DE, CAD. He takes care of his daily activities at home. Currently he is onJevtana/Lupron/Xgeva, plan to add carboplatin if PSA continues to go up, at the time of my evaluation heart rate in 60s, normal blood pressure, symptom-free, daughters at the bedside, his full code He is not vaccinated Hospitalist was asked to observe him overnight because of new onset A. fib RVR which has converted to sinus rhythm Review of Systems Const: Denies: chills, body aches, change in weight or fatigue Eyes: Denies: change in vision ENMT: Denies: throat pain Card: Reports: chest pain, palpitations, irregular heart rhythm and swelling of feet/ankles Resp: Denies: dyspnea GI: Denies: abdominal pain : Denies: flank pain Musc: Denies: neck pain Skin/Breast: Denies: rash Neuro: Denies: headache(s) Psych: Denies: anxiety Endo: Denies: polyuria Tristin/Lymph: Denies: easy bruising All/Imm: Denies: urticaria Medications/Allergies Home Medications Medication Instructions Recorded Confirmed Last Taken Type lansoprazole 30 mg PO QAM 10/14/20 09/09/21 09/09/21 07:00 History Lactobacillus acidophilus 1 cap PO DAILY 06/11/21 09/09/21 Unknown History [Acidophilus] acetaminophen [Tylenol Ex Str 500 mg PO Q6H PRN 06/11/21 09/09/21 Unknown History Rapid Release] cyanocobalamin (vitamin B-12) 1,000 mcg IM Q30D 06/11/21 09/09/21 Unknown History [Vitamin B-12] dexamethasone See Rx Instructions .ROUTE .COMPLEX 06/11/21 09/09/21 Unknown History naproxen sodium [Aleve] 220 mg PO Q12H PRN 06/11/21 09/09/21 Unknown History prednisone 10 mg PO QAM 06/11/21 09/09/21 09/09/21 07:00 History zolpidem 5 mg PO BEDTIME PRN 06/11/21 09/09/21 09/08/21 History Vitamin B-12 1 tab PO EVERY OTHER DAY 09/09/21 09/09/21 09/09/21 History Allergies Allergy/AdvReac Type Severity Reaction Status Date / Time No Known Allergies Allergy Verified 09/09/21 13:49 PFSH Acute PFSH: Medical History Adenocarcinoma of prostate C. difficile colitis Mediastinal adenopathy (Unknown) Surgical History H/O neck surgery History of appendectomy Family History Other Cancer Stroke Social History Smoking and tobacco status: former smoker Quit status (tobacco): has quit using tobacco Year quit tobacco: 1970 - 1PPD x 5 Years Second hand smoke exposure: No Alcohol intake: former Lives independently: Yes Household members: spouse Marital status: Current occupational status: retired History of recent travel: No Current gender identity: Male Vitals/I&O/Wt Last Vital Signs Temp 97.8 F 09/09/21 12:25 Pulse 62 09/09/21 15:30 Resp 15 09/09/21 15:30 BP 112/72 09/09/21 15:30 Pulse Ox 94 09/09/21 15:30 Weight last 48 hrs Weight 79.379 kg Physical Exam Narrative: EXAM NARRATIVE: Patient was symptom-free at the time my evaluation Nonfocal neuro exam 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 fib Converted to sinus rhythm after initiation of Cardizem drip, received 20 mg of Cardizem IV push TSH normal, potassium normal, will check magnesium level, his duration was less than 4 hours, hold off on starting anticoagulating agent for now, monitor on telemetry PT evaluation in the morning Cardiac diet DVT prophylaxis Lovenox CTA rule out pulmonary embolism which was done secondary to high D-dimer, will request venous Dopplers to rule out DVT Full code Attestations Medical Necessity Statement*: Anticipating discharge within 48 hours Time Spent in Patient Care: Greater than 35 minutes Coding Level of Care Code Acute Enterprise Services Manager for Ike Treviño Diagnoses Atrial fibrillation, new onset I48.91 Atrial fibrillation with rapid ventricular response I48.91 Right-sided chest pain R07.9
--- NOTE | 2021-09-09 17:11 | PC.NURSE ---
Attempted to call report on pt. Nurse unavailable. LUNA Solis stated that she would call back.
--- NOTE | 2021-09-09 17:30 | PC.NURSE ---
Addendum entered by Irma Vazquez RN 09/09/21 18:57: patient admitted to CSU room 105 From ER via sendy presents on cardizem Gtt Educated patient on New medication and Plan of care Original Note: Admit Note Patient admitted to [] from [] via []. Covering service notified. Patient presents with []. Orders reviewed & will continue to monitor. Patient and/or veterans contact representative oriented to environment, equipment, and informed of the following as found in the admission booklet: patient rights & responsibilities, visitor policy, hand and respiratory hygiene practice. Other education includes: []. Patient and/or veterans contact representative [ResponseToTeaching].
--- NOTE | 2021-09-09 18:32 | ECG_ITS ---
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 Measurements Intervals [place] Rate: 72 P: 53 ID: [id number] QRS: -88 QRSD: 143 T: 31 QT: 422 QTc: 463 Interpretive Statements SINUS RHYTHM WITH OCCASIONAL SUPRAVENTRICULAR PREMATURE COMPLEXES RIGHT BUNDLE BRANCH BLOCK [120+ ms QRS DURATION, UPRIGHT V1, 40+ ms S IN I/aVL/V4/V5/V6] LEFT ANTERIOR FASCICULAR BLOCK [QRS AXIS <= -45, QR IN I, RS IN II] POSSIBLE SEPTAL MYOCARDIAL INFARCTION , PROBABLY OLD [30 ms Q WAVE IN V1/V2] Compared to ECG 09/09/2021 14:15:26 No significant changes Electronically Signed On 09-10-2021 9:09:01 LIBRARY PAGE by Fredis Franklin M.D. [id number]
[2021-09-09] MEDS: enoxaparin 40 mg/0.4 mL Syringe SUBCUT (19:14)
[2021-09-09] MEDS: metoprolol tartrate 25 mg Tablet 12.5 MG PO (19:52)
[2021-09-09 20:03] LABS: Troponin 5 6HR 61.94 ng/L (0-15)
[2021-09-09 20:09] LABS: Troponin 5 6HR Delta 24.94 ng/L (0-12)
[2021-09-10 02:07] VITALS: PULSE 47
[2021-09-10 03:33] VITALS: BP 131/73; PULSE 51; RESP 12; TEMP 36.6; O2SAT 92
[2021-09-10 03:46] VITALS: PULSE 51
[2021-09-10 04:10] LABS: Basophils # 0.1 10^3/uL (0.0-0.1); Eosinophils # 0.1 10^3/uL (0.0-0.8); Hemoglobin 11.9 g/dL (11.7-16.6); Lymphocytes # 1.2 10^3/uL (0.8-4.8); Lymphocytes % 19.9 %; Mean Corpuscular HGB Conc 32.2 g/dL (30.0-36.0); Mean Corpuscular Hemoglobin 31.6 pg (28.0-34.0); Mean Corpuscular Volume 98.4 fl (80-94); Mean Platelet Volume 9.8 fL (7.4-10.4); Monocytes # 0.7 10^3/uL (0.2-0.9); Monocytes % 11.3 %; Neutrophils # 4.06 10^3/uL (1.8-7.7); Neutrophils % 66.3 %; Nucleated Red Blood Cells % 0 %; Platelet Count 215 10^3/cmm (130-400); Red Blood Count 3.76 10^6/uL (4.1-5.3); Red Cell Distribution Width 14.3 % (12.1-15.1); White Blood Count 6.1 10^3/uL (4.0-10.0)
[2021-09-10 04:31] LABS: Anion Gap 13.9 (5-19); Blood Urea Nitrogen 16 mg/dL (8-23); Calcium 8.2 mg/dL (8.5-10.5); Carbon Dioxide 24 mmol/L (22-29); Chloride 107 mmol/L (98-107); Glucose 101 mg/dL (65-115); Magnesium 1.9 mg/dL (1.7-2.3); Osmolality Calculated 293 mOsm/kg (285-295); Potassium 3.9 mmol/L (3.5-5.1); Sodium 141 mmol/L (136-145)
[2021-09-10] MEDS: predniSONE 10 mg Tablet PO (05:07)
[2021-09-10] MEDS: acetaminophen 500 mg Tablet PO (05:07)
--- NOTE | 2021-09-10 06:24 | PC.NURSE ---
Per ultrasound staff, patient has DVT to right groin. Dr. Gaines notified.
--- NOTE | 2021-09-10 07:30 | USCV_ITS ---
Oli Aragon Age: 85 Gender: M : 1935 Exam Date: 09/10/2021 07:41 Ordering Phys: Ritika Mitchell MD Technologist: LEANNA Exam Location[place] [facility] [place] Indication: Atrial fibrillation BP: 132 / 73 HR: 60 Rhythm: Sinus Technical Quality: Adequate MEASUREMENTS (Male / Female) Normal Values 2D ECHO LV Diastolic Diameter PLAX 3.4 cm 4.2 - 5.9 / 3.9 - 5.3 cm LV Systolic Diameter PLAX 2.5 cm IVS Diastolic Thickness 0.9 cm 0.6 - 1.0 / 0.6 - 0.9 cm IVS Systolic Thickness 1.5 cm LVPW Diastolic Thickness 1.1 cm 0.6 - 1.0 / 0.6 - 0.9 cm LVPW Systolic Thickness 1.5 cm LVOT Diameter 2.1 cm LV Ejection Fraction 2D Teich 51.8 % LV Ejection Fraction MOD 2C 69.1 % LV Ejection Fraction 2C AL 69.5 % LA Diameter 3.9 cm LA Width 3.7 cm LA Height 3.9 cm RA Width 3.4 cm RA Height 4.2 cm M-MODE LV Diastolic Diameter MM 6.0 cm 4.2 - 5.9 / 3.9 - 5.3 cm LV Systolic Diameter MM 3.7 cm LV Ejection Fraction MM Teich 68.0 % IVS Diastolic Thickness MM 1.2 cm 0.6 - 1.0 / 0.6 - 0.9 cm IVS Systolic Thickness MM 1.7 cm LVPW Diastolic Thickness MM 1.4 cm 0.6 - 1.0 / 0.6 - 0.9 cm LVPW Systolic Thickness MM 2.0 cm RV Diastolic Diameter MM 1.8 cm Aortic Annulus Diameter 3.4 cm LA Ao Ratio MM 1.2 MV E Point Septal Separation 1.3 cm DOPPLER AV Peak Velocity 135.0 cm/s LVOT Peak Velocity 89.0 cm/s AV Area Cont Eq vti 1.9 cm squared AV Area Cont Eq pk 2.2 cm squared MV Area PHT 5.0 cm squared Mitral E to A Ratio 0.9 MV E' Velocity 53.0 cm/s Mitral E to LV E' Septal Ratio 5.5 TR Peak Velocity 174.3 cm/s TR Peak Gradient 12.2 mmHg TV Peak E Velocity 63.0 cm/s Right Atrial Pressure 3.0 mmHg Pulmonary Artery Systolic Pressu 15.2 mmHg FINDINGS Left Ventricle Normal left ventricular size, systolic function and wall thickness, with no regional wall motion abnormalities. Left ventricular ejection fraction is estimated at 65 %. Normal diastolic function. Right Ventricle Normal right ventricular size and systolic function. Right ventricular systolic pressure 15.2 mmHg. Right Atrium Normal right atrial size. Left Atrium Normal left atrial size. Mitral Valve Structurally normal mitral valve. No mitral valve stenosis. Trace mitral valve regurgitation. Aortic Valve Aortic valve not well visualized. Probably tricuspid aortic valve. No aortic valve stenosis. Trace aortic valve regurgitation. Tricuspid Valve Structurally normal tricuspid valve. Trace tricuspid valve regurgitation. Pulmonic Valve Pulmonic valve not well visualized. Pericardium No pericardial effusion. Aorta Normal-sized aortic root. CONCLUSIONS 1. Normal left ventricular size, systolic function and wall thickness, with no regional wall motion abnormalities. Left ventricular ejection fraction is estimated at 65 %. Normal diastolic function. 2. Normal right ventricular size and systolic function. 3. No prior similar studies to compare. María Elena Xiao MD (Electronically Signed) Final Date: 10 September 2021 14:10 S
[2021-09-10 08:29] VITALS: PULSE 67; RESP 18; O2SAT 92
--- NOTE | 2021-09-10 08:59 | P.DS_ITS ---
Discharge Providers Date of Admission: 09/09/21 16:35 Date of Discharge: September 10, 2021 Attending Provider at Admission: Ritika Mitchell MD Attending Provider at Discharge: Ritika Mitchell MD Primary Care Provider: Anatoly Ochoa MD Diagnoses at Discharge Discharge Diagnosis (1) Atrial fibrillation, new onset: Status: Acute (2) Atrial fibrillation with rapid ventricular response: Status: Acute (3) Right-sided chest pain: Status: Acute Reason for Visit Reason for Visit: CHEST PAIN/ DIZZINESS/ AFIB Hospital Course Hospital Course History of Present Illness Oli Aragon is a 85 year old male history of prostate cancer, densely sclerotic osseous metastatic disease T1, T5, T4, incidental meningioma, benign mediastinal lymphadenopathy follows up with Dr. Davies presented today for chest discomfort. Patient is stating that today when he was driving around 10 AM after about 5 minutes he start experiencing chest discomfort and some pressure- like sensation around his neck, he was very uncomfortable with this feeling, he pulled over, 911 was called. He was diagnosed with A. fib RVR, he was given 20 mg of Cardizem IV push which improved his heart rate. With use of Cardizem drip his A. fib converted to normal sinus rhythm, patient chest pain and symptoms improved. No recent fever, nausea, vomiting, his constipation and diarrhea alternates, no recent falls, no history of syncope, DE, CAD. He takes care of his daily activities at home. Currently he is onJevtana/Lupron/Xgeva, plan to add carboplatin if PSA continues to go up, at the time of my evaluation heart rate in 60s, normal blood pressure, symptom-free, daughters at the bedside, his full code He is not vaccinated Hospitalist was asked to observe him overnight because of new onset A. fib RVR which has converted to sinus rhytm Hosp course: Patient was admitted for management evaluation of paroxysmal atrial fibrillation, he converted to sinus rhythm, he remained in sinus rhythm throughout his hospitalization, CTA ruled out pulmonary embolism, however right leg DVT was detected. He was started on loading dose of Eliquis, he remained chest pain-free, no shortness of breath, tachyarrhythmia improved. No chest pain, shortness of breath, palpitations during his hospitalization. I gave him metoprolol low-dose which decreased his heart rate to 60s. Decision was made to discharge him only on Eliquis. Prescription was given to the patient to get venous Doppler after 3 months for clot progression monitoring. plan to discharge him after echocardiogram. Physical Exam Narrative: EXAM NARRATIVE: Patient was asymptomatic Saturating well on room air Sinus rhythm in 60s Hemodynamically stable PERRLA Nonfocal exam Doing well on room air Abdomen soft No signs of fluid overload Discharge Data Data Completed and Pending: Completed Studies During Hospitalization Category Date Time Status CT angio chest PE protcl [id number] Urge nt Cat Scan 09/09/21 14:18 Completed XR chest 1V hiram ble [id number] Stat Exams 09/09/21 12:31 [place] [id number] Routin e Ultrasound 09/10/21 17:27 Completed Pending at discharge Category Date Time Status CV. echo complete * [id number] Urgent Ultrasound 09/10/21 07:30 Taken Labs from last 24 hours 09/10/21 09/10/21 09/09/21 03:46 03:46 19:25 WBC 6.1 RBC 3.76 L Hgb 11.9 Hct 37.0 L MCV 98.4 H MCH 31.6 MCHC 32.2 RDW 14.3 Plt Count 215 MPV 9.8 Neut % (Auto) 66.3 Lymph % (Auto) 19.9 Barry % (Auto) 11.3 Eos % (Auto) 1.0 Baso % (Auto) 1.0 Neut # (Auto) 4.06 Lymph # (Auto) 1.2 Barry # (Auto) 0.7 Eos # (Auto) 0.1 Baso # (Auto) 0.1 Nucleated RBC % (a uto) 0 Nucleated RBCs # 0.0 D-Dimer Sodium 141 Potassium 3.9 Chloride 107 Carbon Dioxide 24 Anion Gap 13.9 BUN 16 Creatinine 0.9 GFR Calculation Not Reportable Glucose 101 Calculated Osmolal ity 293 Calcium 8.2 L Magnesium 1.9 Total Bilirubin AST ALT Alkaline Phosphata se Troponin T Baselin e Troponin T 120 Min [place] Delta Troponin T Troponin T Hi Sens 6Hr 61.94 H Troponin T Hi Sens 6Hr Delta 24.94 H* NT-Pro-B Natriuret Pep Total Protein Albumin Globulin TSH 09/09/21 09/09/21 09/09/21 14:42 13:50 12:50 WBC RBC Hgb Hct MCV MCH MCHC RDW Plt Count MPV Neut % (Auto) Lymph % (Auto) Barry % (Auto) Eos % (Auto) Baso % (Auto) Neut # (Auto) Lymph # (Auto) Barry # (Auto) Eos # (Auto) Baso # (Auto) Nucleated RBC % (a uto) Nucleated RBCs # D-Dimer 1.42 H Sodium Potassium Chloride Carbon Dioxide Anion Gap BUN Creatinine GFR Calculation Glucose Calculated Osmolal ity Calcium Magnesium Total Bilirubin AST ALT Alkaline Phosphata se Troponin T Baselin e 37 H Troponin T 120 Min [place] 42.10 H Delta Troponin T 5.10 Troponin T Hi Sens 6Hr Troponin T Hi Sens 6Hr Delta NT-Pro-B Natriuret Pep Total Protein Albumin Globulin TSH 09/09/21 09/09/21 12:50 12:50 WBC 12.9 H RBC 4.38 Hgb 13.8 Hct 43.7 MCV 99.8 H MCH 31.5 MCHC 31.6 RDW 14.1 Plt Count 234 MPV 9.8 Neut % (Auto) 90.9 Lymph % (Auto) 5.2 Barry % (Auto) 2.9 Eos % (Auto) 0.2 Baso % (Auto) 0.3 Neut # (Auto) 11.77 H Lymph # (Auto) 0.7 L Barry # (Auto) 0.4 Eos # (Auto) 0.0 Baso # (Auto) 0.0 Nucleated RBC % (a uto) 0 Nucleated RBCs # 0.0 D-Dimer Sodium 137 Potassium 4.6 Chloride 102 Carbon Dioxide 21 L Anion Gap 18.6 BUN 18 Creatinine 1.0 GFR Calculation Not Reportable Glucose 90 Calculated Osmolal ity 285 Calcium 8.7 Magnesium 1.7 Total Bilirubin 0.5 AST 21 ALT 16 Alkaline Phosphata se 77 Troponin T Baselin e Troponin T 120 Min [place] Delta Troponin T Troponin T Hi Sens 6Hr Troponin T Hi Sens 6Hr Delta NT-Pro-B Natriuret Pep 226 Total Protein 6.2 L Albumin 4.1 Globulin 2.1 TSH 1.36 Vitals: Last Vital Signs Temp 97.9 F 09/10/21 03:33 Pulse 67 09/10/21 08:29 Resp 18 09/10/21 08:29 BP 131/73 09/10/21 03:33 Pulse Ox 92 09/10/21 08:29 Discharge Plan Discharge Patient Disposition: Home Condition: Stable Prescriptions: New Eliquis DVT-PE Treat 30D Start 5 mg (74 tabs) tablets,dose pack See Rx Instructions .ROUTE .COMPLEX Qty: 74 RF: 0 Continued Vitamin B-12 1 tab PO EVERY OTHER DAY RF: 0 lansoprazole 30 mg Capsule,Delayed Release(Dr/Ec) 30 mg PO QAM RF: 0 prednisone 10 mg tablet 10 mg PO QAM RF: 0 acetaminophen 500 mg Tablet 500 mg PO Q6H PRN (Reason: Pain) RF: 0 cyanocobalamin (vitamin B-12) 1,000 mcg/mL Solution 1,000 mcg IM Q30D RF: 0 dexamethasone 4 mg tablet See Rx Instructions .ROUTE .COMPLEX RF: 0 naproxen sodium [Aleve] 220 mg Tablet 220 mg PO Q12H PRN (Reason: Pain) RF: 0 zolpidem 5 mg tablet 5 mg PO BEDTIME PRN (Reason: Sleep) RF: 0 Lactobacillus acidophilus [Acidophilus] Capsule 1 cap PO DAILY RF: 0 Discharge Orders: Discharge Order (Routine); Ordered 09/10/21 Ordered By: Ritika Mitchell Other Ambulatory Orders: CV venous dup insufficie LE RT (Routine) Timeframe: 3 Months Facility: [facility] - Location: Radiology Ordered By: Ritika Mitchell Referrals: Anatoly Ochoa MD [Primary Care Provider] - 7-10 days (You will have an appointment with Dr. Ochoa within 7-10days. His office will call you with an appointment date and time. If you don't hear from them please call the office. ) Discharge Diet: Cardiac Discharge Activity: Increase activity as tolerated Patient Instructions: A-fib (Atrial Fibrillation) (DC), Deep Vein Thrombosis (DC), Opioid Safety Discharge Attestations Time Spent in Discharge Care*: less than 30 min Quality Metrics Clinical Quality Measures During this hospital stay, did patient experience: None Coding Level of Care Code Acute Chg FW DC note Diagnoses Atrial fibrillation, new onset I48.91 Atrial fibrillation with rapid ventricular response I48.91 Right-sided chest pain R07.9
[2021-09-10 09:28] VITALS: BP 141/81; PULSE 67; RESP 18; TEMP 37; O2SAT 92
[2021-09-10] MEDS: enoxaparin 40 mg/0.4 mL Syringe SUBCUT (11:12)
--- NOTE | 2021-09-10 11:20 | PC.CHAP ---
Pastoral Care Encounter/Spiritual Assessment Type of Contact [] Declined nut sorter visit [] Patient/Family/Request visit [] Outpatient visit [] Follow-up visit [] Physician referral [] Code/Alert [x] Routine visit [] Staff referral [] Actively dying [] Patient sleeping [] Family support [] [] Out of room [] Palliative care [] [x] Receiving care in room [] Pre-surgical visit [] Trauma [x] Long length of stay [] ICU visit [] Other: Relational/Emotional Strength [x] Patient feels connected with others/family/visitors/staff [] Distress [] Loneliness/isolation [] Abandonment Spirituality of Patient [x] Person of Priyanka [] Attends Restorationist of their Priyanka [x] Believes in Prayer [] Reads Bible or Synagogue materials [] There are Spiritual issues to be addressed Medical Office Receptionist Assistant Interventions [x] Prayer [x] Active listening [x] Non-anxious presence [x] Spiritual/emotional support [] Crisis/trauma care [x] Spiritual counseling [] Bereavement support [] Provided bereavement packet [] Provided Bible/devotional materials [] Provided toy/stuffed animal, coloring book to patient or family member [] Provided Communion [] Anointing/[place] [] Salvation [x] Completed spiritual assessment [] Other: Impact on Illness or Injury [] Angry [] Fearful [x] Anxious [] Often cries [] Exhaustion [x] Unable to work [] Unable to attend faith [] Unable to walk/stand [] Unable to read [] Unable to drive [] Unable to eat/drink [] Unable to sleep [] Unable to be with family [] Patient intubated [] Other: Summary came for a heart scan and had to say over night heart is back to peg has a goodd attitude and is going home today Time spent with patient 10 mins
[2021-09-10 11:21] VITALS: BP 141/81; PULSE 61; RESP 18; TEMP 37; O2SAT 95
--- NOTE | 2021-09-10 11:28 | PC.NURSE ---
Discharge education provided to patient and to family. Patient provided with Eliquis coupon. Patient and family have no questions or concerns. VS stable upon departure.
--- NOTE | 2021-09-10 17:27 | USCV_ITS ---
Oli Aragon Age: 85 Gender: M : 1935 Exam Date: 09/10/2021 06:19 Ordering Phys: Ritika Mitchell MD Technologist: April Franklin Exam Location: [facility] [place]_ Indication: BLE SWELLING HISTORY: Lower extremity swelling. PROCEDURES: Venous duplex imaging was performed in bilateral lower extremities. The following venous structures were evaluated: common femoral vein, profunda vein, proximal portion of the greater saphenous vein, superficial femoral vein, and the popliteal vein. In addition, the posterior tibial and peroneal trunk were evaluated. Serial compression, augmentation maneuvers, and spectral Doppler flow evaluation were performed. FINDINGS: Evidence of acute occlusive deep vein thrombosis in the right common femoral vein extending into the profunda with abnormal flow dynamics. No additional DVT although study in technically difficult. CONCLUSIONS Acute right lower extremity deep venous thrombosis. Dr. Nano Sun DO (Electronically Signed) Final Date: 10 September 2021 08:28 S
== END 2021-09-10 11:29 | disposition home or self-care (01) ==
LOC: ER 16:34 → CSU 16:53
PROVIDERS: Admitting Provider Internal Medicine; Emergency Provider Emergency Medicine; PCP Internal Medicine; Visit Provider Internal Medicine
DX: I48.91 Unspecified atrial fibrillation (principal); Z85.46 Personal history of malignant neoplasm of prostate; I82.401 Acute embolism and thrombosis of unspecified deep veins of right lower extremity; Z79.52 Long term (current) use of systemic steroids; Z87.891 Personal history of nicotine dependence
CPT/HCPCS: 36415; 71045; 71275; 80048; 80053; 83735; 83880; 84443; 84484; 85025; 85378; 93005; 93306; 93970; 96365; 96366; 96367; 96372; 99285; G0378; J1650; J3475; J3490; J7512; Q9967

== ENCOUNTER 2021-09-16 06:37 | Outpatient (RCR) | payer MEDICARE, BC, SELFPAY ==
[2021-09-16 08:56] LABS: Basophils % 0.1 %; Lymphocytes # 0.7 10^3/uL (0.8-4.8); Lymphocytes % 6.4 %; Mean Corpuscular HGB Conc 32.5 g/dL (30.0-36.0); Mean Corpuscular Hemoglobin 31.5 pg (28.0-34.0); Mean Corpuscular Volume 96.9 fl (80-94); Mean Platelet Volume 9.9 fL (7.4-10.4); Monocytes # 0.6 10^3/uL (0.2-0.9); Monocytes % 5.8 %; Neutrophils # 9.05 10^3/uL (1.8-7.7); Neutrophils % 87.3 %; Nucleated Red Blood Cells % 0 %; Platelet Count 267 10^3/cmm (130-400); Red Blood Count 4.13 10^6/uL (4.1-5.3); Red Cell Distribution Width 14.2 % (12.1-15.1); White Blood Count 10.4 10^3/uL (4.0-10.0)
[2021-09-16 10:10] LABS: Alanine Aminotransferase 12 U/L (0-41); Albumin Level 4.1 g/dL (3.5-5.2); Alkaline Phosphatase 57 IU/L (40-130); Anion Gap 18.4 (5-19); Aspartate Amino Transferase 13 U/L (0-40); Blood Urea Nitrogen 17 mg/dL (8-23); Calcium 8.6 mg/dL (8.5-10.5); Carbon Dioxide 19 mmol/L (22-29); Chloride 106 mmol/L (98-107); Globulin 2.5 g/dL (1.3-4.6); Glucose 92 mg/dL (65-115); Osmolality Calculated 289 mOsm/kg (285-295); Potassium 4.4 mmol/L (3.5-5.1); Sodium 139 mmol/L (136-145); Total Bilirubin 0.3 mg/dL (0.15-1.2); Total Protein 6.6 g/dL (6.6-8.7)
[2021-09-16] MEDS: denosumab 120 mg SDV SUBCUT (12:36)
[2021-09-16] MEDS: leuprolide 22.5 mg Kit IM (12:39)
[2021-09-16] MEDS: cyanocobalamin 1,000 mcg/mL SDV 1000 MCG SUBCUT (12:39)
--- NOTE | 2021-09-16 13:28 | ONC FU_ITS ---
Dr. Davies follow up note Patient: Oli Aragon Unit #: [id number]: 1935 Dicatated By: Sae Davies M.D.Date of Visit:Sep 16, 2021 Onc Med Follow-up/Prog Note History of Present Illness: Mr. Aragon is an 85-year-old gentleman with history of prostate cancer diagnosed with LUZMARIA in June 2009, with his PSA was 16.8 In July 2009, he underwent biopsy of prostate gland. The final report came back [place] score 9 (4+5) and Stephanie's 8 (4+4) CT scan of pelvis in showed right obturator lymph nodes. He was started on chemotherapy/biotherapy/hormonal therapy Lupron. In February 2010, followup study showed partial remission and no evidence of disease on scans. from April 2010 to May 2010, he received radiation therapy to a total of 7800 cGy to prostate and pelvic lymph nodes 4500 cGy. From January 2013 to January 2014, he was treated with Casodex with a PSA response. In January 2016 he was noted to have disease progression lymph node size was increasing on scan and PSA gone up to 12.8 On 08/04/2016 plan was to started Zytiga/prednisone , PSA 13.1. On 08/30/2016 PSA was 25.3. His last dose of Lupron was in January 2017. Initially it was given every 3 months and was changed to every 6 months with followup at [facility]. Zytiga was under consideration but because of cost it was not started as per oncology note from [facility] on 01/17/2017. CT scan of abdomen pelvis done at [facility] on 01/17/2017 showed increasing retroperitoneal and right pelvic lymphadenopathy. A bone scan done on 01/17/2017 showed new foci of uptake involving the sacrum are suspicious for skeletal metastases and new focal uptake at the anterior lateral aspect of the right fourth rib. Which is nonspecific for metastatic versus intraoral trauma. Incidental small right upper lobe pulmonary nodule is nonspecific follow-up suggested. In October 2018 Zytiga was obtained for Mr. Cortes. Mr Aragon was tolerating ADT wit lupron and Zytiga/prednisone well. Follow-up CT PET scan done on 11/10/2019 showed FDG negative, densely sclerotic osseous metastatic disease, consistent with sterilize malignancy. FDG positive lymph nodes in the right common iliac and mediastinal territories consistent with recurrent active malignancy. MRI scan of thoracic spine done on 11/07/2019 showed blastic well circumcised metastatic lesion involving T1 and T5 vertebral bodies likely previous treated, no significant edema or enhancement. No other visualized metastatic lesion. Mild chronic compression superior endplate T4 with incidental hemangioma Mr Aragon was referred to pulmonology for evaluation of mediastinal lymphadenopathy. He underwent bronchoscopy on 12/07/2019 right middle lobe. Endobronchial biopsy showed benign respiratory mucosa and cartilage. No malignancy identified. His PSA has continued to elevate and had recommended changing him to enzalutamide 160 mg p.o. daily and discontinue the Zytiga/prednisone. He will continue with the Xgeva and Lupron. started Xtandi On February 09, 2020 While waiting for repeat bronchoscopy, follow-up CT scan of chest was done on March 05, 2020 which showed stable previously described FDG avid normal and slightly prominent lymph nodes right hilum, left AP window and subcarinal hilar lymph nodes are stable. Subcarinal lymph node is slightly enlarged measuring 11 mm unchanged from previous scan done on November 10, 2019. No evidence of progressive lymphadenopathy. Mild chronic emphysematous changes seen. No acute pulmonary infiltrates. Noncalcified fibrotic appearing nodule right upper lobe measuring 4 mm. Sclerotic FDG negative lesions consistent with treated osseous metastatic disease more prominent at T1, T5 and right fifth rib. Due to persistent severe diarrhea, Xtandi was put on hold on April 14, 2020,Restarted on July 31, 2020 but with low-dose e.g. 80 mg p.o. daily Which was discontinued on August 29, 2020 because of persistent abdominal pain, diarrhea Started on systemic therapy with Taxotere on October 28, 2020, Along with 3 monthly Lupron and Xgeva. While on Taxotere, patient's PSA continue to increase, On December 01, 2020 his PSA was 77.01 compared to 68.44 on November 17 and 46.62 on October 28, 2020, thus follow-up CT scan of chest abdomen pelvis was done on December 11, 2020 which shows suspicious for progression of metastatic bone disease, new lesion in his thoracic spine, ribs and right ilium. And increasing lymph nodes along the right iliac chain measuring about 2.3 x 2.4 cm. No pulmonary nodules, no increase in size of indeterminate bilateral hilar lymph nodes Bone scan done on December 11, 2020 shows mild progression of metastatic bone disease since October 2019, now new lesions in the thoracic vertebrae right ilium and posterior right fifth rib versus scapula. Guardant 360 done on December 17, 2020 showed no obvious targetable therapeutic mutations Mr Aragon started on Jevtana/Prednisone on January 08, 2021 along with monthly Xgeva and 3 monthly Lupron. He has tolerated it well thus far. MRI lumbar spine done on February 02, 2021 showed enhancing metastatic lesion involving right aspect of sacrum S1 unchanged since bone scan done on December 11, 2020, mass measuring 4.2 x 3.9 x 2.1 cm. Enhancing metastatic lesion involving posterior L1 spinous process is also unchanged. No evidence of enhancing epidural disease. Mild right L5-S1 foraminal narrowing. , patient is status post radiation therapy to sacrum in the past . Mr. Aragon has continued treatment with Jevtana, denosumab and Depo-Lupron. Follow-up CT PET scan done on March 28, 2021 showed the index right iliac lymph node seen on prior studies unchanged in size, currently measuring 2 cm but SUV have improved to 5.9 from 11.1 previously. Similarly a cluster of nodes in the right common iliac territories slightly improved. Mediastinal lymph nodes seen on prior studies are still FDG positive but are improved since October 2019 and are again noted in subcarinal, subaortic, right paratracheal, right paraesophageal, bilateral hilar territory. New sclerotic osseous metastatic disease is present in right iliac, T10, T11 bones and other lesions in T1, T5 and right fifth rib and S1 locations are stable He continued treatment and is tolerating Jevtana/Lupron/Xgeva well. Follow-up PSMA scan done on July 21, 2021 showed no abnormal tracer uptake in prostate/prostate bed. There is intense tracer uptake associated with an enlarged right internal iliac lymph node. Extensive right pelvic lymphadenopathy beginning in the right paracaval region just superior to the bifurcation extending along the right common iliac chain with associated intense tracer uptake. There are multiple foci of intense uptake involving spine, including C7, T1, T4, T6, T10 and T11 and posterior spinous process of L1. Additionally multiple moderate to intense foci of radiotracer uptake involving bilateral ribs. And sacrum and right iliac bone. Calcified mediastinal lymph nodes represent sequelae of old granulomatous disease. No other abnormality seen in the lungs except small indeterminate groundglass nodule in the right upper lobe which measures about 3 mm. As per patient on September 09, 2021 he went to [facility] with palpitation and shortness of breath and chest wall pain, underwent CTA chest, which was negative for pulmonary embolism, multiple sclerotic osseous metastatic lesions within the spine and ribs most are not significantly changed from prior study however. New lesions within T10-T11 vertebral body also had lower extremity venous Doppler study done on September 09, 2021 which shows acute right lower extremity DVT, patient was started on anticoagulation, now being monitored by Dr. Ochoa. Came for follow-up, denies any specific complaints, no fever chills, no nausea or vomiting, no diarrhea or constipation, no melena or hematochezia no hemoptysis or hematemesis mild discomfort in the right thigh, under control with current pain medication. Tolerating Jevtana/ADT with Lupron/Xgeva, well Medications: Ambien 1 Tablet (of 5 mg) Oral at bedtime, diphenhydrAMINE HCl (25 mg) Capsule Oral at bedtime PRN, Eliquis Tablet Oral, Lansoprazole (30 mg) Capsule Delayed Release Oral daily, Mirtazapine 1 Tablet (of 15 mg) Oral at bedtime PRN, Ondansetron HCl 1 Tablet (of 4 mg) Oral q 6 hours PRN, predniSONE 1 Tablet (of 10 mg) Oral daily, Tums 1 (500 mg) Tablet, chewable Oral PRN Allergies: No Known Allergies. Review of Systems: Review of Systems is not available for this patient. Vital Signs: Performed on Sep 16, 2021 11:15 Height - 76.00 in Weight - 178.2 lbs BSA - 2.11 sq.m BMI - 21.69 Temperature - 97.0 F (LOW) Pulse - 74 /min Respiration - 18 /min BP - 133/68 mm(hg) O2 Sat - 95 % (LOW) Pain - 0 Fatigue - 0 Performance Status: 0 - Fully active, able to carry on all predisease activities without restrictions. (ECOG) Physical Examination: ENMT - No mouth sores, no thrush, no jaundice, Respiratory - Lungs are clear to auscultation, Cardiovascular - Regular rate and rhythm of heart, Abdomen - Soft, bowel sounds present, Extremities - Trace edema right leg. Lab/Imaging: Test performed on Jul 07, 2021 08:02 Sodium 139 mmol/L Potassium 3.8 mmol/L Chloride 105 mmol/L CO2 20 mmol/L Anion Gap 17.8 BUN 18 mg/dL Creatinine 0.8 mg/dL Cr Clearance (Est) 78.2300 mL/min Glucose 130 mg/dL Osmolality - Calculated 292 mOsm/kg Calcium 9.1 mg/dL Protein, Total 6.2 g/dL Albumin 4.0 g/dL Globulin 2.2 g/dL Bilirubin, Total 0.4 mg/dL ALT (SGPT) 10 U/L AST (SGOT) 12 U/L Alkaline Phosphatase 89 IU/L WBC 9.9 10 3/uL RBC 3.90 10 6/uL HGB 12.6 g/dL HCT 39.4 % MCV 101.0 fl MCH 32.3 pg MCHC 32.0 g/dL RDW 14.0 % Platelet Count 232 10 3/cmm MPV 10.4 fL Neutrophils 8.45 10 3/uL Lymphocytes 0.9 10 3/uL Monocytes 0.5 10 3/uL Eosinophils 0.0 10 3/uL Basophils 0.0 10 3/uL Neutrophil % 85.5 % Lymphocyte % 8.6 % Monocyte % 5.4 % Eosinophil % 0.0 % Basophils % 0.1 % NRBC % 0 % PSA 106.00 ng/mL Impression: Adenocarcinoma of prostate,Initially diagnosed in July 2009, status post radiation. Prostate and pelvic lymph nodes in April 2010, now with recurrent with pelvic/retroperitoneal lymphadenopathy and abnormal bone scan. On Lupron at [facility] Bone scan done on 05/11/2017 showed no evidence of bony metastatic disease Rising PSA while on Lupron Started on zytiga 1000 mg po qd and prednisone 5 mg twice a day on 06/08/2017 in his PSA on June 06/2017 was 134 Fatigue probably multifactorial including hormone withdrawal recent History of fall from the tree, with injury to tailbone and right ribs Bone scan done on 07/20/2017 at [facility] showed 2 new lesions, one in the region of T2 and on in the pelvis likely skeletal metastasis. Multiple ribs lesions probably due to trauma Chest x-ray done on 09/26/2017 showed normal visualized bone structures. No acute changes bone scan done on 09/28/2007 showed metastatic bone disease is stable with no progression or improvement since 07/20/2017 CT scan of abdomen pelvis done on 07/20/2017 at [facility] showed retroperitoneal lymphadenopathy is stable or slightly smaller soft tissue nodule in the Florence's pouch is unchanged New sclerotic lesion in the right anterior sacrum at S1 -S 3 may represent new focus of bone metastases Bone scan done on 07/24/2018 showed no new focus of increased activity, overall decreased activity of previously noted metastatic/posttraumatic changes since 09/28/2017. Unchanged cervicothoracic spine increase activity, probably related to prior anterior fusion changes. CT scan of pelvis done on 07/24/2018 showed no pelvic lymphadenopathy, a small soft tissue nodule measuring 10 mm inseparable from the right iliac vein, has been present since 01/17/2017 Venous Doppler study right leg shows no DVT CT scan of abdomen pelvis done on every 2018 showed incidental left renal cyst without change Prior appendicectomy Stable right-sided pericaval lymph node. Variable appearance of blastic metastatic lesion right sacral ala and right side of S1 vertebral body bone scan done on 11/03/2018 showed increased uptake in right sacrum stable T4 lesion, and resolution of left costochondral lesions Status post radiation therapy to right sacroiliac area Follow-up bone scan done on 10/29/2019 shows no evidence of disease progression, no new area of metastatic disease Stable to slightly improved metastatic lesion involving the right posterior sacrum Additional stable to improve lesion involving the right T4 vertebral body and posterior fourth rib. Follow-up CT PET scan done on 11/10/2019 showed FDG negative, densely sclerotic osseous metastatic disease, consistent with sterilize malignancy. FDG positive lymph nodes in the right common iliac and mediastinal territories consistent with recurrent active malignancy. MRI scan of thoracic spine done on 11/07/2019 showed blastic well circumcised metastatic lesion involving T1 and T5 vertebral bodies likely previous treated, no significant edema or enhancement. No other visualized metastatic lesion. Mild chronic compression superior endplate T4 with incidental hemangioma Mr Aragon was referred to pulmonology for evaluation of mediastinal lymphadenopathy. He underwent bronchoscopy on 12/07/2019 right middle lobe. Endobronchial biopsy showed benign respiratory mucosa and cartilage. No malignancy identified. His PSA has continued to elevate and had recommended changing him to enzalutamide 160 mg p.o. daily and discontinue the Zytiga/prednisone. He will continue with the Xgeva and Lupron. Xtandi was put on hold on April 14, 2020 because of diarrhea and eventually discontinued, his PSA continues to go up while on docetaxel and on December 17, 2020 his PSA was 84.9 compared to 68.4 on November 17, at that time he was decided to discontinue Taxotere and last dose was given on November 17, 2020, his treatment was discussed and changed to Jevtana on January 08, 2021 will continue on monthly Xgeva and 3 monthly Lupron. Follow-up CT PET scan done on March 28, 2021 shows new sclerotic osseous metastatic disease in the right iliac, T10, T11 bone other lesions in T1, T5 and S1 locations are stable, index right common iliac lymph node seen on prior scan done in October 2019 showed SUV has improved and cluster of lymph node in the right common iliac territory has improved mediastinal lymph nodes also shows improvement, Based on stable findings on CT PET scan although persistently elevated PSA around 90, he was decided to continue with Jevtana/Lupron/Xgeva Right lower extremity DVT, started on anticoagulation on September 09, 2021, Dr. Ochoa is managing Plan: Discussed with patient regarding his labs white blood count 10.4 hemoglobin 13 hematocrit 40 platelets 267,000 CMP within normal limits PSA 196.9 compared to 151.4 on August 19, 2021 Clinically, patient has no new signs symptom suggestive of disease progression but unfortunately his PSA continues to go up, at this point, as discussed earlier, we will add carboplatin AUC 5 every 3 weeks to his Jevtana which is being given every 3 weeks. All the side effect possible benefits associated with carboplatin including but not limited to bone marrow suppression especially thrombocytopenia, nausea vomiting, hair loss, were mentioned, further teaching will done by chemotherapy nurse. Plan to give him carboplatin/Jevtana together and followed with PSA and radiological studies to see if there is improvement or stability in his metastatic prostate cancer while maintaining good quality of life.Patient is maintaining good quality of life with Jevtana/Lupron/Xgeva but somehow his PSA continues to go up, that is the reason to add carboplatin, which may slow down disease progression. We will obtain approval from his insurance regarding carboplatin and then consider giving both carboplatin AUC 5/Jevtana every 3 weeks, follow-up with PSA and radiological studies. Today, will proceed with Lupron, Xgeva, B12 supplement and then patient will return to clinic 1 week after carboplatin/Jevtana with CBC CMP Signed By: Sae Davies M.D. <<Signature on File>>
== END 2021-09-18 23:59 | disposition home or self-care (01) ==
LOC: ONCMED 06:37
PROVIDERS: PCP Internal Medicine; Visit Provider Internal Medicine Hematology & Oncology
DX: C61 Malignant neoplasm of prostate (principal); C77.8 Secondary and unspecified malignant neoplasm of lymph nodes of multiple regions; C79.51 Secondary malignant neoplasm of bone; R97.21 Rising PSA following treatment for malignant neoplasm of prostate; I82.491 Acute embolism and thrombosis of other specified deep vein of right lower extremity; D51.9 Vitamin B12 deficiency anemia, unspecified; Z79.01 Long term (current) use of anticoagulants; Z79.52 Long term (current) use of systemic steroids; Z79.818 Long term (current) use of other agents affecting estrogen receptors and estrogen levels; Z79.899 Other long term (current) drug therapy
CPT/HCPCS: 36591; 80053; 84153; 85025; 96372; 96402; 99215; J0897; J3420; J9217

== ENCOUNTER → 2021-10-07 14:24 | Outpatient (BNVA) | payer MEDICARE, BC, SELFPAY | PROVIDERS: PCP Internal Medicine; Referring Provider Internal Medicine Hematology & Oncology; Visit Provider Orthopaedic Surgery | DX: S79.911A Unspecified injury of right hip, initial encounter (principal); M16.11 Unilateral primary osteoarthritis, right hip; X58.XXXA Exposure to other specified factors, initial encounter | CPT/HCPCS: 73502 ==

== ENCOUNTER 2021-10-14 06:22 | Outpatient (RCR) | payer MEDICARE, BC, SELFPAY ==
[2021-09-22 09:05] LABS: Basophils % 0.1 %; Hematocrit 41.5 % (42.0-52.0); Hemoglobin 13.5 g/dL (11.7-16.6); Lymphocytes # 0.8 10^3/uL (0.8-4.8); Lymphocytes % 6.4 %; Mean Corpuscular HGB Conc 32.5 g/dL (30.0-36.0); Mean Corpuscular Hemoglobin 31.3 pg (28.0-34.0); Mean Corpuscular Volume 96.3 fl (80-94); Monocytes # 0.7 10^3/uL (0.2-0.9); Monocytes % 5.7 %; Neutrophils % 87.2 %; Nucleated Red Blood Cells % 0 %; Platelet Count 268 10^3/cmm (130-400); Red Blood Count 4.31 10^6/uL (4.1-5.3); Red Cell Distribution Width 14.3 % (12.1-15.1); White Blood Count 11.8 10^3/uL (4.0-10.0)
[2021-09-22 09:36] LABS: Alanine Aminotransferase 13 U/L (0-41); Alkaline Phosphatase 59 IU/L (40-130); Anion Gap 17.4 (5-19); Aspartate Amino Transferase 13 U/L (0-40); Blood Urea Nitrogen 18 mg/dL (8-23); Calcium 9.1 mg/dL (8.5-10.5); Carbon Dioxide 19 mmol/L (22-29); Chloride 100 mmol/L (98-107); Globulin 2.2 g/dL (1.3-4.6); Glucose 101 mg/dL (65-115); Osmolality Calculated 276 mOsm/kg (285-295); Potassium 4.4 mmol/L (3.5-5.1); Sodium 132 mmol/L (136-145); Total Bilirubin 0.4 mg/dL (0.15-1.2); Total Protein 6.2 g/dL (6.6-8.7)
[2021-09-22] MEDS: sodium chloride 0.9% 250 ML 75 ML IV (10:00)
[2021-09-22] MEDS: famotidine 20 mg/2 mL INJ IVP (10:10)
[2021-09-22] MEDS: diphenhydrAMINE 50 mg/mL SDV 1mL 25 MG IV (10:15)
[2021-09-22] MEDS: fosaprepitant 150 MG in sodium chloride 0.9% 150 ML 300 MG IV (10:30)
[2021-09-22] MEDS: palonosetron 0.25 mg/5 mL SDV IV (10:55)
[2021-09-22] MEDS: pegfilgrastim 6 mg/0.6 mL Kit (onpro) SUBCUT (14:00)
[2021-09-30 09:25] LABS: Hematocrit 37.9 % (42.0-52.0); Mean Corpuscular HGB Conc 31.7 g/dL (30.0-36.0); Mean Corpuscular Hemoglobin 30.9 pg (28.0-34.0); Mean Corpuscular Volume 97.7 fl (80-94); Mean Platelet Volume 11.2 fL (7.4-10.4); Platelet Count 99 10^3/cmm (130-400); Red Blood Count 3.88 10^6/uL (4.1-5.3); White Blood Count 3.5 10^3/uL (4.0-10.0)
[2021-09-30 09:59] LABS: Alanine Aminotransferase 13 U/L (0-41); Albumin Level 3.8 g/dL (3.5-5.2); Alkaline Phosphatase 78 IU/L (40-130); Aspartate Amino Transferase 13 U/L (0-40); Blood Urea Nitrogen 23 mg/dL (8-23); Calcium 8.7 mg/dL (8.5-10.5); Carbon Dioxide 24 mmol/L (22-29); Chloride 99 mmol/L (98-107); Globulin 1.9 g/dL (1.3-4.6); Glucose 91 mg/dL (65-115); Osmolality Calculated 285 mOsm/kg (285-295); Sodium 136 mmol/L (136-145); Total Bilirubin 0.6 mg/dL (0.15-1.2); Total Protein 5.7 g/dL (6.6-8.7)
[2021-09-30 10:00] LABS: Slide Review Slide Review Perform
[2021-09-30 10:03] LABS: Band Neutrophils Absolute 0.9 10^3/cmm (0.0-1.2); Lymphocytes 11 %; Lymphocytes Absolute 0.4 10^3/cmm (1.2-3.4); Monocytes Absolute 0.2 10^3/cmm (0.1-0.6); Segmented Neutrophils 56 %; Total Cells Counted 100 (0-100)
[2021-09-30 10:04] LABS: Absolute Neutrophil 2.8 10^3/cmm (1.4-6.5); Eosinophils 0 %; Platelet Estimate Decreased (Normal)
[2021-09-30] MEDS: sodium chloride 0.9% 500 ML IV (11:20)
--- NOTE | 2021-09-30 11:20 | ONC FU_ITS ---
Dr. Davies follow up note Patient: Oli Aragon Unit #: [id number]: 1935 Dicatated By: Sae Davies M.D.Date of Visit:Sep 30, 2021 Onc Med Follow-up/Prog Note History of Present Illness: Mr. Aragon is an 85-year-old gentleman with history of prostate cancer diagnosed with LUZMARIA in June 2009, with his PSA was 16.8 In July 2009, he underwent biopsy of prostate gland. The final report came back [place]a score 9 (4+5) and Stephanie's 8 (4+4) CT scan of pelvis in showed right obturator lymph nodes. He was started on chemotherapy/biotherapy/hormonal therapy Lupron. In February 2010, followup study showed partial remission and no evidence of disease on scans. from April 2010 to May 2010, he received radiation therapy to a total of 7800 cGy to prostate and pelvic lymph nodes 4500 cGy. From January 2013 to January 2014, he was treated with Casodex with a PSA response. In January 2016 he was noted to have disease progression lymph node size was increasing on scan and PSA gone up to 12.8 On 08/04/2016 plan was to started Zytiga/prednisone , PSA 13.1. On 08/30/2016 PSA was 25.3. His last dose of Lupron was in January 2017. Initially it was given every 3 months and was changed to every 6 months with followup at [facility] Zytiga was under consideration but because of cost it was not started as per oncology note from [facility] on 01/17/2017. CT scan of abdomen pelvis done at [facility] on 01/17/2017 showed increasing retroperitoneal and right pelvic lymphadenopathy. A bone scan done on 01/17/2017 showed new foci of uptake involving the sacrum are suspicious for skeletal metastases and new focal uptake at the anterior lateral aspect of the right fourth rib. Which is nonspecific for metastatic versus intraoral trauma. Incidental small right upper lobe pulmonary nodule is nonspecific follow-up suggested. In October 2018 Zytiga was obtained for Mr. Cortes. Mr Aragon was tolerating ADT wit lupron and Zytiga/prednisone well. Follow-up CT PET scan done on 11/10/2019 showed FDG negative, densely sclerotic osseous metastatic disease, consistent with sterilize malignancy. FDG positive lymph nodes in the right common iliac and mediastinal territories consistent with recurrent active malignancy. MRI scan of thoracic spine done on 11/07/2019 showed blastic well circumcised metastatic lesion involving T1 and T5 vertebral bodies likely previous treated, no significant edema or enhancement. No other visualized metastatic lesion. Mild chronic compression superior endplate T4 with incidental hemangioma Mr Aragon was referred to pulmonology for evaluation of mediastinal lymphadenopathy. He underwent bronchoscopy on 12/07/2019 right middle lobe. Endobronchial biopsy showed benign respiratory mucosa and cartilage. No malignancy identified. His PSA has continued to elevate and had recommended changing him to enzalutamide 160 mg p.o. daily and discontinue the Zytiga/prednisone. He will continue with the Xgeva and Lupron. started Xtandi On February 09, 2020 While waiting for repeat bronchoscopy, follow-up CT scan of chest was done on March 05, 2020 which showed stable previously described FDG avid normal and slightly prominent lymph nodes right hilum, left AP window and subcarinal hilar lymph nodes are stable. Subcarinal lymph node is slightly enlarged measuring 11 mm unchanged from previous scan done on November 10, 2019. No evidence of progressive lymphadenopathy. Mild chronic emphysematous changes seen. No acute pulmonary infiltrates. Noncalcified fibrotic appearing nodule right upper lobe measuring 4 mm. Sclerotic FDG negative lesions consistent with treated osseous metastatic disease more prominent at T1, T5 and right fifth rib. Due to persistent severe diarrhea, Xtandi was put on hold on April 14, 2020,Restarted on July 31, 2020 but with low-dose e.g. 80 mg p.o. daily Which was discontinued on August 29, 2020 because of persistent abdominal pain, diarrhea Started on systemic therapy with Taxotere on October 28, 2020, Along with 3 monthly Lupron and Xgeva. While on Taxotere, patient's PSA continue to increase, On December 01, 2020 his PSA was 77.01 compared to 68.44 on November 17 and 46.62 on October 28, 2020, thus follow-up CT scan of chest abdomen pelvis was done on December 11, 2020 which shows suspicious for progression of metastatic bone disease, new lesion in his thoracic spine, ribs and right ilium. And increasing lymph nodes along the right iliac chain measuring about 2.3 x 2.4 cm. No pulmonary nodules, no increase in size of indeterminate bilateral hilar lymph nodes Bone scan done on December 11, 2020 shows mild progression of metastatic bone disease since October 2019, now new lesions in the thoracic vertebrae right ilium and posterior right fifth rib versus scapula. Guardant 360 done on December 17, 2020 showed no obvious targetable therapeutic mutations Mr Aragon started on Jevtana/Prednisone on January 08, 2021 along with monthly Xgeva and 3 monthly Lupron. He has tolerated it well thus far. MRI lumbar spine done on February 02, 2021 showed enhancing metastatic lesion involving right aspect of sacrum S1 unchanged since bone scan done on December 11, 2020, mass measuring 4.2 x 3.9 x 2.1 cm. Enhancing metastatic lesion involving posterior L1 spinous process is also unchanged. No evidence of enhancing epidural disease. Mild right L5-S1 foraminal narrowing. , patient is status post radiation therapy to sacrum in the past . Mr. Aragon has continued treatment with Jevtana, denosumab and Depo-Lupron. Follow-up CT PET scan done on March 28, 2021 showed the index right iliac lymph node seen on prior studies unchanged in size, currently measuring 2 cm but SUV have improved to 5.9 from 11.1 previously. Similarly a cluster of nodes in the right common iliac territories slightly improved. Mediastinal lymph nodes seen on prior studies are still FDG positive but are improved since October 2019 and are again noted in subcarinal, subaortic, right paratracheal, right paraesophageal, bilateral hilar territory. New sclerotic osseous metastatic disease is present in right iliac, T10, T11 bones and other lesions in T1, T5 and right fifth rib and S1 locations are stable He continued treatment and is tolerating Jevtana/Lupron/Xgeva well. Follow-up PSMA scan done on July 21, 2021 showed no abnormal tracer uptake in prostate/prostate bed. There is intense tracer uptake associated with an enlarged right internal iliac lymph node. Extensive right pelvic lymphadenopathy beginning in the right paracaval region just superior to the bifurcation extending along the right common iliac chain with associated intense tracer uptake. There are multiple foci of intense uptake involving spine, including C7, T1, T4, T6, T10 and T11 and posterior spinous process of L1. Additionally multiple moderate to intense foci of radiotracer uptake involving bilateral ribs. And sacrum and right iliac bone. Calcified mediastinal lymph nodes represent sequelae of old granulomatous disease. No other abnormality seen in the lungs except small indeterminate groundglass nodule in the right upper lobe which measures about 3 mm. As per patient on September 09, 2021 he went to [facility] with palpitation and shortness of breath and chest wall pain, underwent CTA chest, which was negative for pulmonary embolism, multiple sclerotic osseous metastatic lesions within the spine and ribs most are not significantly changed from prior study however. New lesions within T10-T11 vertebral body also had lower extremity venous Doppler study done on September 09, 2021 which shows acute right lower extremity DVT, patient was started on anticoagulation, now being monitored by Dr. Ochoa. Tolerating Jevtana/ADT with Lupron/Xgeva, well, Because of progressive PSA carboplatin was added to Jevtana on September 22, 2021 Came for follow-up, complaining of pain in the right hip, radiating to right leg, as per patient he had a fall on Tuesday since then his pain has progressed, denies any weakness in the right leg denies any numbness in the leg, denies any urine or stool incontinence, denies any problem with walking, as per patient after last chemo, he did develop constipation for which he took laxative and first dose did not help him much, with the second dose he got some diarrhea and after that started feeling weak and tired, there was a episode of small blood in the stool, which resolved now. Denies any fever or chills denies any nausea or vomiting denies any dysuria or hematuria Medications: Ambien 1 Tablet (of 5 mg) Oral at bedtime, diphenhydrAMINE HCl (25 mg) Capsule Oral at bedtime PRN, Eliquis Tablet Oral, Lansoprazole (30 mg) Capsule Delayed Release Oral daily, Mirtazapine 1 Tablet (of 15 mg) Oral at bedtime PRN, Ondansetron HCl 1 Tablet (of 4 mg) Oral q 6 hours PRN, predniSONE 1 Tablet (of 10 mg) Oral daily, Tums 1 (500 mg) Tablet, chewable Oral PRN Allergies: No Known Allergies. Review of Systems: Review of Systems is not available for this patient. Vital Signs: Performed on Sep 30, 2021 10:59 Height - 76.00 in Weight - 171.8 lbs (LOW) BSA - 2.08 sq.m BMI - 20.91 Temperature - 97.8 F (LOW) Pulse - 93 /min Respiration - 18 /min BP - 103/67 mm(hg) O2 Sat - 96 % Pain - 4 Fatigue - 3 Performance Status: 1 - No physically strenuous activity, but ambulatory and able to carry out light or sedentary work (e.g. office work, light house work). (ECOG) Physical Examination: ENMT - No mouth sores, no thrush, no jaundice, Respiratory - Lungs are clear to auscultation, Cardiovascular - Regular rate and rhythm of heart, Abdomen - Soft, bowel sounds present, Extremities - No visible edema, no focal weakness, no tenderness or joint swelling. Lab/Imaging: Test performed on Sep 22, 2021 08:49 Sodium 132 mmol/L Potassium 4.4 mmol/L Chloride 100 mmol/L CO2 19 mmol/L Anion Gap 17.4 BUN 18 mg/dL Creatinine 0.8 mg/dL Cr Clearance (Est) 78.5900 mL/min Glucose 101 mg/dL Osmolality - Calculated 276 mOsm/kg Calcium 9.1 mg/dL Protein, Total 6.2 g/dL Albumin 4.0 g/dL Globulin 2.2 g/dL Bilirubin, Total 0.4 mg/dL ALT (SGPT) 13 U/L AST (SGOT) 13 U/L Alkaline Phosphatase 59 IU/L WBC 11.8 10 3/uL RBC 4.31 10 6/uL HGB 13.5 g/dL HCT 41.5 % MCV 96.3 fl MCH 31.3 pg MCHC 32.5 g/dL RDW 14.3 % Platelet Count 268 10 3/cmm MPV 10.0 fL Neutrophils 10.30 10 3/uL Lymphocytes 0.8 10 3/uL Monocytes 0.7 10 3/uL Eosinophils 0.0 10 3/uL Basophils 0.0 10 3/uL Neutrophil % 87.2 % Lymphocyte % 6.4 % Monocyte % 5.7 % Eosinophil % 0.0 % Basophils % 0.1 % NRBC % 0 % Test performed on Jul 07, 2021 08:02 PSA 106.00 ng/mL Impression: Adenocarcinoma of prostate,Initially diagnosed in July 2009, status post radiation. Prostate and pelvic lymph nodes in April 2010, now with recurrent with pelvic/retroperitoneal lymphadenopathy and abnormal bone scan. On Lupron at [facility] Bone scan done on 05/11/2017 showed no evidence of bony metastatic disease Rising PSA while on Lupron Started on zytiga 1000 mg po qd and prednisone 5 mg twice a day on 06/08/2017 in his PSA on June 06/2017 was 134 Fatigue probably multifactorial including hormone withdrawal recent History of fall from the tree, with injury to tailbone and right ribs Bone scan done on 07/20/2017 at [facility] showed 2 new lesions, one in the region of T2 and on in the pelvis likely skeletal metastasis. Multiple ribs lesions probably due to trauma Chest x-ray done on 09/26/2017 showed normal visualized bone structures. No acute changes bone scan done on 09/28/2007 showed metastatic bone disease is stable with no progression or improvement since 07/20/2017 CT scan of abdomen pelvis done on 07/20/2017 at [facility] showed retroperitoneal lymphadenopathy is stable or slightly smaller soft tissue nodule in the Florence's pouch is unchanged New sclerotic lesion in the right anterior sacrum at S1 -S 3 may represent new focus of bone metastases Bone scan done on 07/24/2018 showed no new focus of increased activity, overall decreased activity of previously noted metastatic/posttraumatic changes since 09/28/2017. Unchanged cervicothoracic spine increase activity, probably related to prior anterior fusion changes. CT scan of pelvis done on 07/24/2018 showed no pelvic lymphadenopathy, a small soft tissue nodule measuring 10 mm inseparable from the right iliac vein, has been present since 01/17/2017 Venous Doppler study right leg shows no DVT CT scan of abdomen pelvis done on every 2018 showed incidental left renal cyst without change Prior appendicectomy Stable right-sided pericaval lymph node. Variable appearance of blastic metastatic lesion right sacral ala and right side of S1 vertebral body bone scan done on 11/03/2018 showed increased uptake in right sacrum stable T4 lesion, and resolution of left costochondral lesions Status post radiation therapy to right sacroiliac area Follow-up bone scan done on 10/29/2019 shows no evidence of disease progression, no new area of metastatic disease Stable to slightly improved metastatic lesion involving the right posterior sacrum Additional stable to improve lesion involving the right T4 vertebral body and posterior fourth rib. Follow-up CT PET scan done on 11/10/2019 showed FDG negative, densely sclerotic osseous metastatic disease, consistent with sterilize malignancy. FDG positive lymph nodes in the right common iliac and mediastinal territories consistent with recurrent active malignancy. MRI scan of thoracic spine done on 11/07/2019 showed blastic well circumcised metastatic lesion involving T1 and T5 vertebral bodies likely previous treated, no significant edema or enhancement. No other visualized metastatic lesion. Mild chronic compression superior endplate T4 with incidental hemangioma Mr Aragon was referred to pulmonology for evaluation of mediastinal lymphadenopathy. He underwent bronchoscopy on 12/07/2019 right middle lobe. Endobronchial biopsy showed benign respiratory mucosa and cartilage. No malignancy identified. His PSA has continued to elevate and had recommended changing him to enzalutamide 160 mg p.o. daily and discontinue the Zytiga/prednisone. He will continue with the Xgeva and Lupron. Xtandi was put on hold on April 14, 2020 because of diarrhea and eventually discontinued, his PSA continues to go up while on docetaxel and on December 17, 2020 his PSA was 84.9 compared to 68.4 on November 17, at that time he was decided to discontinue Taxotere and last dose was given on November 17, 2020, his treatment was discussed and changed to Jevtana on January 08, 2021 will continue on monthly Xgeva and 3 monthly Lupron. Follow-up CT PET scan done on March 28, 2021 shows new sclerotic osseous metastatic disease in the right iliac, T10, T11 bone other lesions in T1, T5 and S1 locations are stable, index right common iliac lymph node seen on prior scan done in October 2019 showed SUV has improved and cluster of lymph node in the right common iliac territory has improved mediastinal lymph nodes also shows improvement, Based on stable findings on CT PET scan although persistently elevated PSA around 90, he was decided to continue with Jevtana/Lupron/Xgeva Right lower extremity DVT, started on anticoagulation on September 09, 2021, Dr. Ochoa is managing Plan: Discussed with patient regarding his labs white blood count 3.5 hemoglobin 12 hematocrit 37.9 platelets 99,000 ANC 2800 CMP within normal limits except creatinine 1.3 Clinically, patient is doing reasonably well now in mild to moderate distress, appears dehydrated, we will try normal saline 500 cc and patient was advised to maintain good hydration, his follow-up labs shows progressive thrombocytopenia probably due to addition of carboplatin to Jevtana. He will return to clinic in 2 weeks with CBC CMP and PSA, if reasonable, next dose of chemotherapy with carboplatin/Jevtana. As far as right hip pain/lower back pain is concerned, etiology could be multifactorial including musculoskeletal, disc prolapse or metastatic disease or collapse of vertebra, we will consider MRI scan of lumbosacral and right hip.Patient was advised in case there is a worsening of pain or any weakness or numbness in right leg, he need to call us or go to hospital Signed By: Sae Davies M.D. <<Signature on File>>
--- NOTE | 2021-10-05 10:11 | MR_ITS ---
WS: [id number] MRI LUMBAR SPINE WITH AND WITHOUT CONTRAST. HISTORY: LOWER BACK PAIN;RT HIP/LEG PAIN STATUS POST FALL COMPARISON: 02/02/2021, PET/CT 03/28/2021 TECHNIQUE: Sagittal and axial multisequence imaging is submitted. Sagittal and axial T1 fat sat seque nces post-ProHance 17 cc IV. Heterogeneous marrow signal changes are probably post treatment related. Most significant fatty repla cement of the marrow is at L5 and S1. Mild curvature of the lumbar spine. L5 anterolisthesis is minimal. Similar to the prior study. Again noted is the enhancing metastatic lesion within the RIGHT S1 vertebral body extending along the superior endplate. There is mild peripheral enhancement involving only a portion of the metastatic l esion in the RIGHT S1 vertebral body. Metastatic involvement does appear to have progressed with grea ter extension through the cortex. This osseous lesion is contiguous with the soft tissue mass which a re probably groups of lymph nodes in the RIGHT pelvis inseparable from the internal and external selwyn c arteries. There is also mild encroachment into the RIGHT L5-S1 foramen with abutment along the post erior exiting RIGHT L5 nerve root. There is only partial enhancement suggesting a part of this metast atic site may be treated. T11; 1.8 cm area of increased T2 and FLAIR signal with enhancement along the superior endplate is an additional metastatic site, previously described by PET/CT imaging. There is metastatic involvement o f the L1 spinous process with enhancement. This area of abnormality measures 3.1 x 3.1 cm and extends very slightly into the paravertebral soft tissues from the spinous process. There is no cord compression. No enhancing lesions involving the conus or visualized spinal canal. No additional areas of high-grade foraminal stenosis. Mild bilateral foraminal stenosis at L4-5 is marcail lar to the prior study. Conus terminates normally at L1. Urinary bladder is well distended. MR/MR lumbar spine wo/w con [id number] IMPRESSION: 1. Mild progression of metastatic disease with partial enhancement involving t he RIGHT S1 segment with extension into the RIGHT pelvis. 2. Known metastatic lesion superior T11 vertebral body. 3. Mild progression of the enhancing metastatic lesion involving the L1 spinou s process. 4. Soft tissue mass/lymphadenopathy in the RIGHT pelvis partially encasing the RIGHT internal and external iliac arteries is contiguous with the metastatic l esion in S1 and mild encroachment into the RIGHT L5-S1 foramen. Notified Sae Davies MD at 10/05/2021 12:[address] Davies was not available . Message was relayed to Lenka to provide to the doctor.
--- NOTE | 2021-10-05 10:11 | MR_ITS ---
WS: [id number] MRI PELVIS WITH AND WITHOUT CONTRAST. COMPARISON: 02/02/2021 Multiplanar, multisequence imaging is performed with and without contrast. Sagittal and axial T1 fat sat sequences post-ProHance 17 cc IV. New linear area of edema seen best on the STIR and T2 sequences extending from the RIGHT greater troc hanter inferiorly and obliquely through the proximal femur. On the prior examination there was no met astatic lesion at this site. With the patient's recent fall this is most consistent with a fracture. There is overlying soft tissue edema adjacent to the greater trochanter. There is no marrow edema in the femoral neck or head. Soft tissue edema extends into the muscle surrounding the RIGHT hip. There is enhancement along the fracture site. There are 2 metastatic lesions in the RIGHT ilium. The largest measures 15 mm. The smaller lesion israel sures 14 mm and slightly increased in size and more conspicuous as compared to the prior study. The p reviously described S1 lesion is reidentified and extends into the RIGHT S1 sacral foramen. Again not ed is a soft tissue mass in the RIGHT pelvis contiguous with the S1 metastatic site consistent with a denopathy. MR/MR hip RT wo/w con [id number] IMPRESSION: 1. Nondisplaced acute fracture RIGHT hip extends from the greater trochanter i nferiorly into the proximal femur. 2. Patient has known osseous metastatic disease. No metastatic disease involvi ng the RIGHT femur has been previously described. No soft tissue tumor noted at the fracture site but pathological fracture from underlying occult neoplasm is not excluded. Patient has had recent trauma and this fracture may be from the recent trauma. 3. Mild increase in size of the RIGHT S1 metastatic lesion with extension into the RIGHT S1 neural foramen and the RIGHT L5-S1 neural foramen as described th e prior lumbar spine report. 4. Mild increase in size of the RIGHT iliac metastatic sites. Notified Sae Davies MD at 10/05/2021 12:[address] Davies is unavailable at this time. Message was provided to Lenka.
[2021-10-05 10:21] LABS: Basophils # 0.1 10^3/uL (0.0-0.1); Basophils % 0.7 %; Eosinophils % 0.3 %; Hematocrit 35.9 % (42.0-52.0); Hemoglobin 11.4 g/dL (11.7-16.6); Lymphocytes # 1.2 10^3/uL (0.8-4.8); Lymphocytes % 8.5 %; Mean Corpuscular HGB Conc 31.8 g/dL (30.0-36.0); Mean Corpuscular Hemoglobin 31.2 pg (28.0-34.0); Mean Corpuscular Volume 98.4 fl (80-94); Mean Platelet Volume 10.4 fL (7.4-10.4); Monocytes # 0.8 10^3/uL (0.2-0.9); Monocytes % 5.4 %; Neutrophils % 80.4 %; Nucleated Red Blood Cells % 0 %; Platelet Count 148 10^3/cmm (130-400); Red Blood Count 3.65 10^6/uL (4.1-5.3); Red Cell Distribution Width 14.6 % (12.1-15.1); White Blood Count 13.8 10^3/uL (4.0-10.0)
[2021-10-05 10:55] LABS: Alanine Aminotransferase 14 U/L (0-41); Albumin Level 3.7 g/dL (3.5-5.2); Alkaline Phosphatase 91 IU/L (40-130); Anion Gap 15.6 (5-19); Aspartate Amino Transferase 17 U/L (0-40); Blood Urea Nitrogen 9 mg/dL (8-23); Calcium 7.3 mg/dL (8.5-10.5); Carbon Dioxide 25 mmol/L (22-29); Chloride 104 mmol/L (98-107); Globulin 1.9 g/dL (1.3-4.6); Glucose 72 mg/dL (65-115); Osmolality Calculated 289 mOsm/kg (285-295); Potassium 3.6 mmol/L (3.5-5.1); Sodium 141 mmol/L (136-145); Total Bilirubin 0.3 mg/dL (0.15-1.2); Total Protein 5.6 g/dL (6.6-8.7)
[2021-10-13 09:42] LABS: Basophils % 0.1 %; Hematocrit 34.2 % (42.0-52.0); Hemoglobin 11.3 g/dL (11.7-16.6); Lymphocytes # 0.7 10^3/uL (0.8-4.8); Lymphocytes % 7.4 %; Mean Corpuscular Hemoglobin 32.5 pg (28.0-34.0); Mean Corpuscular Volume 98.3 fl (80-94); Monocytes # 0.7 10^3/uL (0.2-0.9); Monocytes % 6.8 %; Neutrophils # 8.28 10^3/uL (1.8-7.7); Neutrophils % 85.2 %; Nucleated Red Blood Cells % 0 %; Platelet Count 215 10^3/cmm (130-400); Red Blood Count 3.48 10^6/uL (4.1-5.3); Red Cell Distribution Width 15.6 % (12.1-15.1); White Blood Count 9.7 10^3/uL (4.0-10.0)
[2021-10-13 10:08] LABS: Alanine Aminotransferase 11 U/L (0-41); Albumin Level 3.8 g/dL (3.5-5.2); Alkaline Phosphatase 78 IU/L (40-130); Anion Gap 17.1 (5-19); Aspartate Amino Transferase 14 U/L (0-40); Blood Urea Nitrogen 15 mg/dL (8-23); Calcium 7.5 mg/dL (8.5-10.5); Carbon Dioxide 21 mmol/L (22-29); Chloride 100 mmol/L (98-107); Globulin 1.8 g/dL (1.3-4.6); Glucose 104 mg/dL (65-115); Osmolality Calculated 279 mOsm/kg (285-295); Potassium 4.1 mmol/L (3.5-5.1); Sodium 134 mmol/L (136-145); Total Bilirubin 0.3 mg/dL (0.15-1.2); Total Protein 5.6 g/dL (6.6-8.7)
[2021-10-13] MEDS: palonosetron 0.25 mg/5 mL SDV IV (12:05)
[2021-10-13] MEDS: sodium chloride 0.9% 250 ML 300 ML IV (12:05)
[2021-10-13] MEDS: famotidine 20 mg/2 mL INJ IVP (12:06)
[2021-10-13] MEDS: diphenhydrAMINE 50 mg/mL SDV 1mL 25 MG IV (12:08)
[2021-10-13] MEDS: fosaprepitant 150 MG in sodium chloride 0.9% 150 ML 300 MG IV (12:30)
[2021-10-13] MEDS: pegfilgrastim 6 mg/0.6 mL Kit (onpro) SUBCUT (15:10)
--- NOTE | 2021-10-13 16:25 | ONC FU_ITS ---
Dr. Davies follow up note Patient: Oli Aragon Unit #: [id number]: [id number] Dicatated By: Sae Davies M.D.Date of Visit:Oct 13, 2021 Onc Med Follow-up/Prog Note History of Present Illness: Mr. Aragon is an 85-year-old gentleman with history of prostate cancer diagnosed with LUZMARIA in June 2009, with his PSA was 16.8 In July 2009, he underwent biopsy of prostate gland. The final report came back Harshaw score 9 (4+5) and Stephanie's 8 (4+4) CT scan of pelvis in showed right obturator lymph nodes. He was started on chemotherapy/biotherapy/hormonal therapy Lupron. In February 2010, followup study showed partial remission and no evidence of disease on scans. from April 2010 to May 2010, he received radiation therapy to a total of 7800 cGy to prostate and pelvic lymph nodes 4500 cGy. From January 2013 to January 2014, he was treated with Casodex with a PSA response. In January 2016 he was noted to have disease progression lymph node size was increasing on scan and PSA gone up to 12.8 On 08/04/2016 plan was to started Zytiga/prednisone , PSA 13.1. On 08/30/2016 PSA was 25.3. His last dose of Lupron was in January 2017. Initially it was given every 3 months and was changed to every 6 months with followup at [facility]. Zytiga was under consideration but because of cost it was not started as per oncology note from [facility] on 01/17/2017. CT scan of abdomen pelvis done at [facility] on 01/17/2017 showed increasing retroperitoneal and right pelvic lymphadenopathy. A bone scan done on 01/17/2017 showed new foci of uptake involving the sacrum are suspicious for skeletal metastases and new focal uptake at the anterior lateral aspect of the right fourth rib. Which is nonspecific for metastatic versus intraoral trauma. Incidental small right upper lobe pulmonary nodule is nonspecific follow-up suggested. In October 2018 Zytiga was obtained for Mr. Cortes. Mr Aragon was tolerating ADT wit lupron and Zytiga/prednisone well. Follow-up CT PET scan done on 11/10/2019 showed FDG negative, densely sclerotic osseous metastatic disease, consistent with sterilize malignancy. FDG positive lymph nodes in the right common iliac and mediastinal territories consistent with recurrent active malignancy. MRI scan of thoracic spine done on 11/07/2019 showed blastic well circumcised metastatic lesion involving T1 and T5 vertebral bodies likely previous treated, no significant edema or enhancement. No other visualized metastatic lesion. Mild chronic compression superior endplate T4 with incidental hemangioma Mr Aragon was referred to pulmonology for evaluation of mediastinal lymphadenopathy. He underwent bronchoscopy on 12/07/2019 right middle lobe. Endobronchial biopsy showed benign respiratory mucosa and cartilage. No malignancy identified. His PSA has continued to elevate and had recommended changing him to enzalutamide 160 mg p.o. daily and discontinue the Zytiga/prednisone. He will continue with the Xgeva and Lupron. started Xtandi On February 09, 2020 While waiting for repeat bronchoscopy, follow-up CT scan of chest was done on March 05, 2020 which showed stable previously described FDG avid normal and slightly prominent lymph nodes right hilum, left AP window and subcarinal hilar lymph nodes are stable. Subcarinal lymph node is slightly enlarged measuring 11 mm unchanged from previous scan done on November 10, 2019. No evidence of progressive lymphadenopathy. Mild chronic emphysematous changes seen. No acute pulmonary infiltrates. Noncalcified fibrotic appearing nodule right upper lobe measuring 4 mm. Sclerotic FDG negative lesions consistent with treated osseous metastatic disease more prominent at T1, T5 and right fifth rib. Due to persistent severe diarrhea, Xtandi was put on hold on April 14, 2020,Restarted on July 31, 2020 but with low-dose e.g. 80 mg p.o. daily Which was discontinued on August 29, 2020 because of persistent abdominal pain, diarrhea Started on systemic therapy with Taxotere on October 28, 2020, Along with 3 monthly Lupron and Xgeva. While on Taxotere, patient's PSA continue to increase, On December 01, 2020 his PSA was 77.01 compared to 68.44 on November 17 and 46.62 on October 28, 2020, thus follow-up CT scan of chest abdomen pelvis was done on December 11, 2020 which shows suspicious for progression of metastatic bone disease, new lesion in his thoracic spine, ribs and right ilium. And increasing lymph nodes along the right iliac chain measuring about 2.3 x 2.4 cm. No pulmonary nodules, no increase in size of indeterminate bilateral hilar lymph nodes Bone scan done on December 11, 2020 shows mild progression of metastatic bone disease since October 2019, now new lesions in the thoracic vertebrae right ilium and posterior right fifth rib versus scapula. Guardant 360 done on December 17, 2020 showed no obvious targetable therapeutic mutations Mr Aragon started on Jevtana/Prednisone on January 08, 2021 along with monthly Xgeva and 3 monthly Lupron. He has tolerated it well thus far. MRI lumbar spine done on February 02, 2021 showed enhancing metastatic lesion involving right aspect of sacrum S1 unchanged since bone scan done on December 11, 2020, mass measuring 4.2 x 3.9 x 2.1 cm. Enhancing metastatic lesion involving posterior L1 spinous process is also unchanged. No evidence of enhancing epidural disease. Mild right L5-S1 foraminal narrowing. , patient is status post radiation therapy to sacrum in the past . Mr. Aragon has continued treatment with Jevtana, denosumab and Depo-Lupron. Follow-up CT PET scan done on March 28, 2021 showed the index right iliac lymph node seen on prior studies unchanged in size, currently measuring 2 cm but SUV have improved to 5.9 from 11.1 previously. Similarly a cluster of nodes in the right common iliac territories slightly improved. Mediastinal lymph nodes seen on prior studies are still FDG positive but are improved since October 2019 and are again noted in subcarinal, subaortic, right paratracheal, right paraesophageal, bilateral hilar territory. New sclerotic osseous metastatic disease is present in right iliac, T10, T11 bones and other lesions in T1, T5 and right fifth rib and S1 locations are stable He continued treatment and is tolerating Jevtana/Lupron/Xgeva well. Follow-up PSMA scan done on July 21, 2021 showed no abnormal tracer uptake in prostate/prostate bed. There is intense tracer uptake associated with an enlarged right internal iliac lymph node. Extensive right pelvic lymphadenopathy beginning in the right paracaval region just superior to the bifurcation extending along the right common iliac chain with associated intense tracer uptake. There are multiple foci of intense uptake involving spine, including C7, T1, T4, T6, T10 and T11 and posterior spinous process of L1. Additionally multiple moderate to intense foci of radiotracer uptake involving bilateral ribs. And sacrum and right iliac bone. Calcified mediastinal lymph nodes represent sequelae of old granulomatous disease. No other abnormality seen in the lungs except small indeterminate groundglass nodule in the right upper lobe which measures about 3 mm. As per patient on September 09, 2021 he went to [facility] with palpitation and shortness of breath and chest wall pain, underwent CTA chest, which was negative for pulmonary embolism, multiple sclerotic osseous metastatic lesions within the spine and ribs most are not significantly changed from prior study however. New lesions within T10-T11 vertebral body also had lower extremity venous Doppler study done on September 09, 2021 which shows acute right lower extremity DVT, patient was started on anticoagulation, now being monitored by Dr. Ochoa. Tolerating Jevtana/ADT with Lupron/Xgeva, well, Because of progressive PSA carboplatin was added to Jevtana on September 22, 2021 Patient had a fall, which caused worsening of right hip/leg pain, MRI scan of the pelvis done on October 05, 2021 showed nondisplaced acute fracture right hip extends from the greater trochanter inferiorly to the proximal femur. There is overlying soft tissue edema adjacent to greater trochanter there is no marrow edema and femoral neck or head. Soft tissue edema extends into muscles surrounding the right hip and there is enhancement along fracture site. There are 2 metastatic lesion in the right ilium largest being 15 mm, slightly increased in size. Previously described S1 lesion is the identified and extends into the right S1 sacral foramen. Again noted is soft tissue mass in the right pelvis contiguous with S1 metastatic side consistent with adenopathy. MRI scan of lumbar spine done on same date showed mild progression of metastatic disease with partial enhancement involving right S1 segment with extension into the right pelvis. Known metastatic lesion superior T11 vertebral body. Mild progression of enhancing metastatic lesion involving L1 spinous process. Soft tissue mass/lymphadenopathy in the right pelvis partially encasing the right internal and external iliac arteries contiguous with metastatic lesion in S1 and mild encroachment into the right L5-S1 neural foramen patient was referred to orthopedics, as per patient he was advised, supportive care and to use crutches or walker to minimize pressure on the right hip for proper healing. Came for follow-up, denies any specific complaints except persistent right hip/leg pain but is improving, patient said ibuprofen is helping him, he is not taking any narcotics on regular basis, also complaining of mild lower back pain. Denies any numbness in the lower extremities, denies any dysuria or hematuria, denies any urine or stool incontinence, denies any fever or chills. Denies any peripheral numbness, tolerating Jevtana/carboplatin along with monthly Xgeva well. Medications: Ambien 1 Tablet (of 5 mg) Oral at bedtime, diphenhydrAMINE HCl (25 mg) Capsule Oral at bedtime PRN, Eliquis Tablet Oral, Lansoprazole (30 mg) Capsule Delayed Release Oral daily, Mirtazapine 1 Tablet (of 15 mg) Oral at bedtime PRN, Ondansetron HCl 1 Tablet (of 4 mg) Oral q 6 hours PRN, predniSONE 1 Tablet (of 10 mg) Oral daily, Tums 1 (500 mg) Tablet, chewable Oral PRN Allergies: No Known Allergies. Review of Systems: Review of Systems is not available for this patient. Vital Signs: Performed on Oct 13, 2021 11:43 Height - 76.00 in Weight - 178.4 lbs (HIGH) BSA - 2.11 sq.m BMI - 21.72 Temperature - 96.4 F (LOW) Pulse - 80 /min Respiration - 16 /min BP - 119/74 mm(hg) O2 Sat - 94 % (LOW) Pain - 0 Fatigue - 3 Performance Status: 1 - No physically strenuous activity, but ambulatory and able to carry out light or sedentary work (e.g. office work, light house work). (ECOG) Physical Examination: ENMT - No mouth sores, no thrush, no jaundice, Respiratory - Lungs are clear to auscultation, Cardiovascular - Regular rate and rhythm of heart, Abdomen - Soft, bowel sounds present, Extremities - No visible edema. Lab/Imaging: Test performed on Oct 13, 2021 09:25 Sodium 134 mmol/L Potassium 4.1 mmol/L Chloride 100 mmol/L CO2 21 mmol/L Anion Gap 17.1 BUN 15 mg/dL Creatinine 0.7 mg/dL Cr Clearance (Est) 89.8100 mL/min Glucose 104 mg/dL Osmolality - Calculated 279 mOsm/kg Calcium 7.5 mg/dL Protein, Total 5.6 g/dL Albumin 3.8 g/dL Globulin 1.8 g/dL Bilirubin, Total 0.3 mg/dL ALT (SGPT) 11 U/L AST (SGOT) 14 U/L Alkaline Phosphatase 78 IU/L WBC 9.7 10 3/uL RBC 3.48 10 6/uL HGB 11.3 g/dL HCT 34.2 % MCV 98.3 fl MCH 32.5 pg MCHC 33.0 g/dL RDW 15.6 % Platelet Count 215 10 3/cmm MPV 10.0 fL Neutrophils 8.28 10 3/uL Lymphocytes 0.7 10 3/uL Monocytes 0.7 10 3/uL Eosinophils 0.0 10 3/uL Basophils 0.0 10 3/uL Neutrophil % 85.2 % Lymphocyte % 7.4 % Monocyte % 6.8 % Eosinophil % 0.0 % Basophils % 0.1 % NRBC % 0 % PSA 179.500 ng/mL Impression: Adenocarcinoma of prostate,Initially diagnosed in July 2009, status post radiation. Prostate and pelvic lymph nodes in April 2010, now with recurrent with pelvic/retroperitoneal lymphadenopathy and abnormal bone scan. On Lupron at [facility] Bone scan done on 05/11/2017 showed no evidence of bony metastatic disease Rising PSA while on Lupron Started on zytiga 1000 mg po qd and prednisone 5 mg twice a day on 06/08/2017 in his PSA on June 06/2017 was 134 Fatigue probably multifactorial including hormone withdrawal recent History of fall from the tree, with injury to tailbone and right ribs Bone scan done on 07/20/2017 at [facility] showed 2 new lesions, one in the region of T2 and on in the pelvis likely skeletal metastasis. Multiple ribs lesions probably due to trauma Chest x-ray done on 09/26/2017 showed normal visualized bone structures. No acute changes bone scan done on 09/28/2007 showed metastatic bone disease is stable with no progression or improvement since 07/20/2017 CT scan of abdomen pelvis done on 07/20/2017 at [facility] showed retroperitoneal lymphadenopathy is stable or slightly smaller soft tissue nodule in the Florence's pouch is unchanged New sclerotic lesion in the right anterior sacrum at S1 -S 3 may represent new focus of bone metastases Bone scan done on 07/24/2018 showed no new focus of increased activity, overall decreased activity of previously noted metastatic/posttraumatic changes since 09/28/2017. Unchanged cervicothoracic spine increase activity, probably related to prior anterior fusion changes. CT scan of pelvis done on 07/24/2018 showed no pelvic lymphadenopathy, a small soft tissue nodule measuring 10 mm inseparable from the right iliac vein, has been present since 01/17/2017 Venous Doppler study right leg shows no DVT CT scan of abdomen pelvis done on 2018 showed incidental left renal cyst without change Prior appendicectomy Stable right-sided pericaval lymph node. Variable appearance of blastic metastatic lesion right sacral ala and right side of S1 vertebral body bone scan done on 11/03/2018 showed increased uptake in right sacrum stable T4 lesion, and resolution of left costochondral lesions Status post radiation therapy to right sacroiliac area Follow-up bone scan done on 10/29/2019 shows no evidence of disease progression, no new area of metastatic disease Stable to slightly improved metastatic lesion involving the right posterior sacrum Additional stable to improve lesion involving the right T4 vertebral body and posterior fourth rib. Follow-up CT PET scan done on 11/10/2019 showed FDG negative, densely sclerotic osseous metastatic disease, consistent with sterilize malignancy. FDG positive lymph nodes in the right common iliac and mediastinal territories consistent with recurrent active malignancy. MRI scan of thoracic spine done on 11/07/2019 showed blastic well circumcised metastatic lesion involving T1 and T5 vertebral bodies likely previous treated, no significant edema or enhancement. No other visualized metastatic lesion. Mild chronic compression superior endplate T4 with incidental hemangioma Mr Aragon was referred to pulmonology for evaluation of mediastinal lymphadenopathy. He underwent bronchoscopy on 12/07/2019 right middle lobe. Endobronchial biopsy showed benign respiratory mucosa and cartilage. No malignancy identified. His PSA has continued to elevate and had recommended changing him to enzalutamide 160 mg p.o. daily and discontinue the Zytiga/prednisone. He will continue with the Xgeva and Lupron. Xtandi was put on hold on April 14, 2020 because of diarrhea and eventually discontinued, his PSA continues to go up while on docetaxel and on December 17, 2020 his PSA was 84.9 compared to 68.4 on November 17, at that time he was decided to discontinue Taxotere and last dose was given on November 17, 2020, his treatment was discussed and changed to Jevtana on January 08, 2021 will continue on monthly Xgeva and 3 monthly Lupron. Follow-up CT PET scan done on March 28, 2021 shows new sclerotic osseous metastatic disease in the right iliac, T10, T11 bone other lesions in T1, T5 and S1 locations are stable, index right common iliac lymph node seen on prior scan done in October 2019 showed SUV has improved and cluster of lymph node in the right common iliac territory has improved mediastinal lymph nodes also shows improvement, Based on stable findings on CT PET scan although persistently elevated PSA around 90, he was decided to continue with Jevtana/Lupron/Xgeva Right lower extremity DVT, started on anticoagulation on September 09, 2021, Dr. Ochoa is managing Plan: Discussed with patient regarding his labs white blood count 9.7 hemoglobin 11.3 g compared to 11.4 g previously, hematocrit 34.2 platelets 215,000 CMP within normal limits and MRI scan of the hip and lumbar spine findings. Clinically, patient doing reasonably well, in mild to moderate distress due to right hip pain which is due to acute nondisplaced acute fracture of right hip probably due to trauma due to recent fall. Patient has seen orthopedics, he was offered supportive care. As far as metastatic prostate cancer is concerned, patient has stable disease his follow-up PSA today shows some improvement, down to 179.5 from 190.10 on September 30, 2021 Patient is on Jevtana/carboplatin, tolerating well, will proceed with next dose today and then he will return to clinic in 3 weeks with CBC CMP and PSA, in the meantime we will continue with monthly Xgeva and 3 monthly Lupron. Patient was advised in case there is a worsening of pain in the right hip or lower back, he need to call us, will also discuss his MRI scan reports with radiation oncology to see if radiation can be helpful. Signed By: Sae Davies M.D. <<Signature on File>>
[2021-10-14] MEDS: denosumab 120 mg SDV SUBCUT (12:51)
== END 2021-10-14 23:59 | disposition home or self-care (01) ==
LOC: ONCMED 06:22
PROVIDERS: PCP Internal Medicine; Visit Provider Internal Medicine Hematology & Oncology
DX: Z51.12 Encounter for antineoplastic immunotherapy (principal); Z51.11 Encounter for antineoplastic chemotherapy; C61 Malignant neoplasm of prostate; C77.8 Secondary and unspecified malignant neoplasm of lymph nodes of multiple regions; C79.51 Secondary malignant neoplasm of bone; R97.21 Rising PSA following treatment for malignant neoplasm of prostate; R53.82 Chronic fatigue, unspecified; I82.401 Acute embolism and thrombosis of unspecified deep veins of right lower extremity; Z79.01 Long term (current) use of anticoagulants; Z79.818 Long term (current) use of other agents affecting estrogen receptors and estrogen levels; Z86.39 Personal history of other endocrine, nutritional and metabolic disease; Z92.3 Personal history of irradiation
CPT/HCPCS: 36591; 72158; 73723; 80053; 84153; 85007; 85025; 96360; 96367; 96372; 96375; 96377; 96413; 96417; 99215; A9579; J0897; J1100; J1200; J1453; J2469; J2506; J3490; J7040; J7050; J9043; J9045

== ENCOUNTER 2021-11-03 08:48 | Outpatient (RCR) | payer MEDICARE, BC, SELFPAY ==
[2021-11-03 09:24] LABS: Basophils % 0.1 %; Hematocrit 31.5 % (42.0-52.0); Hemoglobin 10.2 g/dL (11.7-16.6); Lymphocytes # 0.7 10^3/uL (0.8-4.8); Lymphocytes % 6.9 %; Mean Corpuscular HGB Conc 32.4 g/dL (30.0-36.0); Mean Corpuscular Hemoglobin 32.3 pg (28.0-34.0); Mean Corpuscular Volume 99.7 fl (80-94); Mean Platelet Volume 9.8 fL (7.4-10.4); Monocytes # 0.9 10^3/uL (0.2-0.9); Monocytes % 8.9 %; Neutrophils # 8.15 10^3/uL (1.8-7.7); Neutrophils % 83.3 %; Nucleated Red Blood Cells % 0 %; Platelet Count 165 10^3/cmm (130-400); Red Blood Count 3.16 10^6/uL (4.1-5.3); Red Cell Distribution Width 17.2 % (12.1-15.1); White Blood Count 9.8 10^3/uL (4.0-10.0)
[2021-11-03 09:42] LABS: Alanine Aminotransferase 14 U/L (0-41); Albumin Level 3.8 g/dL (3.5-5.2); Alkaline Phosphatase 69 IU/L (40-130); Anion Gap 14.8 (5-19); Aspartate Amino Transferase 15 U/L (0-40); Blood Urea Nitrogen 18 mg/dL (8-23); Calcium 8.3 mg/dL (8.5-10.5); Carbon Dioxide 22 mmol/L (22-29); Chloride 105 mmol/L (98-107); Globulin 1.6 g/dL (1.3-4.6); Glucose 82 mg/dL (65-115); Osmolality Calculated 287 mOsm/kg (285-295); Potassium 3.8 mmol/L (3.5-5.1); Sodium 138 mmol/L (136-145); Total Bilirubin 0.3 mg/dL (0.15-1.2); Total Protein 5.4 g/dL (6.6-8.7)
[2021-11-03] MEDS: palonosetron 0.25 mg/5 mL SDV IV (11:10)
[2021-11-03] MEDS: sodium chloride 0.9% 250 ML 75 ML IV (11:10)
[2021-11-03] MEDS: famotidine 20 mg/2 mL INJ IVP (11:11)
[2021-11-03] MEDS: diphenhydrAMINE 50 mg/mL SDV 1mL 25 MG IV (11:13)
[2021-11-03] MEDS: fosaprepitant 150 MG in sodium chloride 0.9% 150 ML 300 MG IV (11:34)
[2021-11-03] MEDS: pegfilgrastim 6 mg/0.6 mL Kit (onpro) SUBCUT (14:20)
--- NOTE | 2021-11-03 15:54 | ONC FU_ITS ---
Dr. Davies follow up note Patient: Oli Aragon Unit #: [id number]: 1935 Dicatated By: Sae Davies M.D.Date of Visit:Nov 03, 2021 Onc Med Follow-up/Prog Note History of Present Illness: Mr. Aragon is an 85-year-old gentleman with history of prostate cancer diagnosed with LUZMARIA in June 2009, with his PSA was 16.8 In July 2009, he underwent biopsy of prostate gland. The final report came back Savannah score 9 (4+5) and Stephanie's 8 (4+4) CT scan of pelvis in showed right obturator lymph nodes. He was started on chemotherapy/biotherapy/hormonal therapy Lupron. In February 2010, followup study showed partial remission and no evidence of disease on scans. from April 2010 to May 2010, he received radiation therapy to a total of 7800 cGy to prostate and pelvic lymph nodes 4500 cGy. From January 2013 to January 2014, he was treated with Casodex with a PSA response. In January 2016 he was noted to have disease progression lymph node size was increasing on scan and PSA gone up to 12.8 On 08/04/2016 plan was to started Zytiga/prednisone , PSA 13.1. On 08/30/2016 PSA was 25.3. His last dose of Lupron was in January 2017. Initially it was given every 3 months and was changed to every 6 months with followup at [facility]. Zytiga was under consideration but because of cost it was not started as per oncology note from [facility] on 01/17/2017. CT scan of abdomen pelvis done at [facility] on 01/17/2017 showed increasing retroperitoneal and right pelvic lymphadenopathy. A bone scan done on 01/17/2017 showed new foci of uptake involving the sacrum are suspicious for skeletal metastases and new focal uptake at the anterior lateral aspect of the right fourth rib. Which is nonspecific for metastatic versus intraoral trauma. Incidental small right upper lobe pulmonary nodule is nonspecific follow-up suggested. In October 2018 Zytiga was obtained for Mr. Cortes. Mr Aragon was tolerating ADT wit lupron and Zytiga/prednisone well. Follow-up CT PET scan done on 11/10/2019 showed FDG negative, densely sclerotic osseous metastatic disease, consistent with sterilize malignancy. FDG positive lymph nodes in the right common iliac and mediastinal territories consistent with recurrent active malignancy. MRI scan of thoracic spine done on 11/07/2019 showed blastic well circumcised metastatic lesion involving T1 and T5 vertebral bodies likely previous treated, no significant edema or enhancement. No other visualized metastatic lesion. Mild chronic compression superior endplate T4 with incidental hemangioma Mr Aragon was referred to pulmonology for evaluation of mediastinal lymphadenopathy. He underwent bronchoscopy on 12/07/2019 right middle lobe. Endobronchial biopsy showed benign respiratory mucosa and cartilage. No malignancy identified. His PSA has continued to elevate and had recommended changing him to enzalutamide 160 mg p.o. daily and discontinue the Zytiga/prednisone. He will continue with the Xgeva and Lupron. started Xtandi On February 09, 2020 While waiting for repeat bronchoscopy, follow-up CT scan of chest was done on March 05, 2020 which showed stable previously described FDG avid normal and slightly prominent lymph nodes right hilum, left AP window and subcarinal hilar lymph nodes are stable. Subcarinal lymph node is slightly enlarged measuring 11 mm unchanged from previous scan done on November 10, 2019. No evidence of progressive lymphadenopathy. Mild chronic emphysematous changes seen. No acute pulmonary infiltrates. Noncalcified fibrotic appearing nodule right upper lobe measuring 4 mm. Sclerotic FDG negative lesions consistent with treated osseous metastatic disease more prominent at T1, T5 and right fifth rib. Due to persistent severe diarrhea, Xtandi was put on hold on April 14, 2020,Restarted on July 31, 2020 but with low-dose e.g. 80 mg p.o. daily Which was discontinued on August 29, 2020 because of persistent abdominal pain, diarrhea Started on systemic therapy with Taxotere on October 28, 2020, Along with 3 monthly Lupron and Xgeva. While on Taxotere, patient's PSA continue to increase, On December 01, 2020 his PSA was 77.01 compared to 68.44 on November 17 and 46.62 on October 28, 2020, thus follow-up CT scan of chest abdomen pelvis was done on December 11, 2020 which shows suspicious for progression of metastatic bone disease, new lesion in his thoracic spine, ribs and right ilium. And increasing lymph nodes along the right iliac chain measuring about 2.3 x 2.4 cm. No pulmonary nodules, no increase in size of indeterminate bilateral hilar lymph nodes Bone scan done on December 11, 2020 shows mild progression of metastatic bone disease since October 2019, now new lesions in the thoracic vertebrae right ilium and posterior right fifth rib versus scapula. Guardant 360 done on December 17, 2020 showed no obvious targetable therapeutic mutations Mr Aragon started on Jevtana/Prednisone on January 08, 2021 along with monthly Xgeva and 3 monthly Lupron. He has tolerated it well thus far. MRI lumbar spine done on February 02, 2021 showed enhancing metastatic lesion involving right aspect of sacrum S1 unchanged since bone scan done on December 11, 2020, mass measuring 4.2 x 3.9 x 2.1 cm. Enhancing metastatic lesion involving posterior L1 spinous process is also unchanged. No evidence of enhancing epidural disease. Mild right L5-S1 foraminal narrowing. , patient is status post radiation therapy to sacrum in the past . Mr. Aragon has continued treatment with Jevtana, denosumab and Depo-Lupron. Follow-up CT PET scan done on March 28, 2021 showed the index right iliac lymph node seen on prior studies unchanged in size, currently measuring 2 cm but SUV have improved to 5.9 from 11.1 previously. Similarly a cluster of nodes in the right common iliac territories slightly improved. Mediastinal lymph nodes seen on prior studies are still FDG positive but are improved since October 2019 and are again noted in subcarinal, subaortic, right paratracheal, right paraesophageal, bilateral hilar territory. New sclerotic osseous metastatic disease is present in right iliac, T10, T11 bones and other lesions in T1, T5 and right fifth rib and S1 locations are stable He continued treatment and is tolerating Jevtana/Lupron/Xgeva well. Follow-up PSMA scan done on July 21, 2021 showed no abnormal tracer uptake in prostate/prostate bed. There is intense tracer uptake associated with an enlarged right internal iliac lymph node. Extensive right pelvic lymphadenopathy beginning in the right paracaval region just superior to the bifurcation extending along the right common iliac chain with associated intense tracer uptake. There are multiple foci of intense uptake involving spine, including C7, T1, T4, T6, T10 and T11 and posterior spinous process of L1. Additionally multiple moderate to intense foci of radiotracer uptake involving bilateral ribs. And sacrum and right iliac bone. Calcified mediastinal lymph nodes represent sequelae of old granulomatous disease. No other abnormality seen in the lungs except small indeterminate groundglass nodule in the right upper lobe which measures about 3 mm. As per patient on September 09, 2021 he went [place] [facility] with palpitation and shortness of breath and chest wall pain, underwent CTA chest, which was negative for pulmonary embolism, multiple sclerotic osseous metastatic lesions within the spine and ribs most are not significantly changed from prior study however. New lesions within T10-T11 vertebral body also had lower extremity venous Doppler study done on September 09, 2021 which shows acute right lower extremity DVT, patient was started on anticoagulation, now being monitored by Dr. Ochoa. Tolerating Jevtana/ADT with Lupron/Xgeva, well, Because of progressive PSA carboplatin was added to Jevtana on September 22, 2021 Patient had a fall, which caused worsening of right hip/leg pain, MRI scan of the pelvis done on October 05, 2021 showed nondisplaced acute fracture right hip extends from the greater trochanter inferiorly to the proximal femur. There is overlying soft tissue edema adjacent to greater trochanter there is no marrow edema and femoral neck or head. Soft tissue edema extends into muscles surrounding the right hip and there is enhancement along fracture site. There are 2 metastatic lesion in the right ilium largest being 15 mm, slightly increased in size. Previously described S1 lesion is the identified and extends into the right S1 sacral foramen. Again noted is soft tissue mass in the right pelvis contiguous with S1 metastatic side consistent with adenopathy. MRI scan of lumbar spine done on same date showed mild progression of metastatic disease with partial enhancement involving right S1 segment with extension into the right pelvis. Known metastatic lesion superior T11 vertebral body. Mild progression of enhancing metastatic lesion involving L1 spinous process. Soft tissue mass/lymphadenopathy in the right pelvis partially encasing the right internal and external iliac arteries contiguous with metastatic lesion in S1 and mild encroachment into the right L5-S1 neural foramen patient was referred to orthopedics, as per patient he was advised, supportive care and to use crutches or walker to minimize pressure on the right hip for proper healing. Came for follow-up, denies any specific complaints except persistent right hip/leg pain but much better since carboplatin was added to his Jevtana, denies any focal weakness, denies any numbness in lower extremities, denies any fever chills denies any nausea or vomiting denies any diarrhea or constipation, tolerating palliative therapy with carboplatin/Jevtana well Medications: Ambien 1 Tablet (of 5 mg) Oral at bedtime, diphenhydrAMINE HCl (25 mg) Capsule Oral at bedtime PRN, Eliquis Tablet Oral, Lansoprazole (30 mg) Capsule Delayed Release Oral daily, Mirtazapine 1 Tablet (of 15 mg) Oral at bedtime PRN, Ondansetron HCl 1 Tablet (of 4 mg) Oral q 6 hours PRN, predniSONE 1 Tablet (of 10 mg) Oral daily, Tums 1 (500 mg) Tablet, chewable Oral PRN Allergies: No Known Allergies. Review of Systems: Review of Systems is not available for this patient. Vital Signs: Performed on Nov 03, 2021 14:02 Height - 76.00 in Weight - 177.8 lbs (LOW) BSA - 2.11 sq.m BMI - 21.64 Temperature - 97.9 F (LOW) Pulse - 73 /min Respiration - 18 /min BP - 117/68 mm(hg) O2 Sat - 94 % (LOW) Pain - 0 Fatigue - 0 Performance Status: 1 - No physically strenuous activity, but ambulatory and able to carry out light or sedentary work (e.g. office work, light house work). (ECOG) Physical Examination: ENMT - No mouth sores, no thrush, no jaundice, Respiratory - Lungs are clear to auscultation, Cardiovascular - Regular rate and rhythm of heart, Abdomen - Soft, bowel sounds present, Extremities - No visible edema. Lab/Imaging: Test performed on Nov 03, 2021 09:44 Creatinine 0.9 mg/dL Cr Clearance (Est) 69.85 mL/min Test performed on Oct 13, 2021 09:25 Sodium 134 mmol/L Potassium 4.1 mmol/L Chloride 100 mmol/L CO2 21 mmol/L Anion Gap 17.1 BUN 15 mg/dL Glucose 104 mg/dL Osmolality - Calculated 279 mOsm/kg Calcium 7.5 mg/dL Protein, Total 5.6 g/dL Albumin 3.8 g/dL Globulin 1.8 g/dL Bilirubin, Total 0.3 mg/dL ALT (SGPT) 11 U/L AST (SGOT) 14 U/L Alkaline Phosphatase 78 IU/L WBC 9.7 10 3/uL RBC 3.48 10 6/uL HGB 11.3 g/dL HCT 34.2 % MCV 98.3 fl MCH 32.5 pg MCHC 33.0 g/dL RDW 15.6 % Platelet Count 215 10 3/cmm MPV 10.0 fL Neutrophils 8.28 10 3/uL Lymphocytes 0.7 10 3/uL Monocytes 0.7 10 3/uL Eosinophils 0.0 10 3/uL Basophils 0.0 10 3/uL Neutrophil % 85.2 % Lymphocyte % 7.4 % Monocyte % 6.8 % Eosinophil % 0.0 % Basophils % 0.1 % NRBC % 0 % PSA 179.500 ng/mL Impression: Adenocarcinoma of prostate,Initially diagnosed in July 2009, status post radiation. Prostate and pelvic lymph nodes in April 2010, now with recurrent with pelvic/retroperitoneal lymphadenopathy and abnormal bone scan. On Lupron at [facility] Bone scan done on 05/11/2017 showed no evidence of bony metastatic disease Rising PSA while on Lupron Started on zytiga 1000 mg po qd and prednisone 5 mg twice a day on 06/08/2017 in his PSA on June 06/2017 was 134 Fatigue probably multifactorial including hormone withdrawal recent History of fall from the tree, with injury to tailbone and right ribs Bone scan done on 07/20/2017 at [facility] showed 2 new lesions, one in the region of T2 and on in the pelvis likely skeletal metastasis. Multiple ribs lesions probably due to trauma Chest x-ray done on 09/26/2017 showed normal visualized bone structures. No acute changes bone scan done on 09/28/2007 showed metastatic bone disease is stable with no progression or improvement since 07/20/2017 CT scan of abdomen pelvis done on 07/20/2017 at [facility] showed retroperitoneal lymphadenopathy is stable or slightly smaller soft tissue nodule in the Florence's pouch is unchanged New sclerotic lesion in the right anterior sacrum at S1 -S 3 may represent new focus of bone metastases Bone scan done on 07/24/2018 showed no new focus of increased activity, overall decreased activity of previously noted metastatic/posttraumatic changes since 09/28/2017. Unchanged cervicothoracic spine increase activity, probably related to prior anterior fusion changes. CT scan of pelvis done on 07/24/2018 showed no pelvic lymphadenopathy, a small soft tissue nodule measuring 10 mm inseparable from the right iliac vein, has been present since 01/17/2017 Venous Doppler study right leg shows no DVT CT scan of abdomen pelvis done on 2018 showed incidental left renal cyst without change Prior appendicectomy Stable right-sided pericaval lymph node. Variable appearance of blastic metastatic lesion right sacral ala and right side of S1 vertebral body bone scan done on 11/03/2018 showed increased uptake in right sacrum stable T4 lesion, and resolution of left costochondral lesions Status post radiation therapy to right sacroiliac area Follow-up bone scan done on 10/29/2019 shows no evidence of disease progression, no new area of metastatic disease Stable to slightly improved metastatic lesion involving the right posterior sacrum Additional stable to improve lesion involving the right T4 vertebral body and posterior fourth rib. Follow-up CT PET scan done on 11/10/2019 showed FDG negative, densely sclerotic osseous metastatic disease, consistent with sterilize malignancy. FDG positive lymph nodes in the right common iliac and mediastinal territories consistent with recurrent active malignancy. MRI scan of thoracic spine done on 11/07/2019 showed blastic well circumcised metastatic lesion involving T1 and T5 vertebral bodies likely previous treated, no significant edema or enhancement. No other visualized metastatic lesion. Mild chronic compression superior endplate T4 with incidental hemangioma Mr Aragon was referred to pulmonology for evaluation of mediastinal lymphadenopathy. He underwent bronchoscopy on 12/07/2019 right middle lobe. Endobronchial biopsy showed benign respiratory mucosa and cartilage. No malignancy identified. His PSA has continued to elevate and had recommended changing him to enzalutamide 160 mg p.o. daily and discontinue the Zytiga/prednisone. He will continue with the Xgeva and Lupron. Xtandi was put on hold on April 14, 2020 because of diarrhea and eventually discontinued, his PSA continues to go up while on docetaxel and on December 17, 2020 his PSA was 84.9 compared to 68.4 on November 17, at that time he was decided to discontinue Taxotere and last dose was given on November 17, 2020, his treatment was discussed and changed to Jevtana on January 08, 2021 will continue on monthly Xgeva and 3 monthly Lupron. Follow-up CT PET scan done on March 28, 2021 shows new sclerotic osseous metastatic disease in the right iliac, T10, T11 bone other lesions in T1, T5 and S1 locations are stable, index right common iliac lymph node seen on prior scan done in October 2019 showed SUV has improved and cluster of lymph node in the right common iliac territory has improved mediastinal lymph nodes also shows improvement, Based on stable findings on CT PET scan although persistently elevated PSA around 90, he was decided to continue with Jevtana/Lupron/Xgeva Right lower extremity DVT, started on anticoagulation on September 09, 2021, Dr. Ochoa is managing Plan: Discussed with patient regarding his labs white blood count 9.8 hemoglobin 10.2 hematocrit 31.5 platelets 165,000 CMP within normal limits PSA 159.5 compared to 179.51 October 13, 2021 Clinically, patient is doing well with no new signs symptoms history of disease progression, his follow-up lab work-up shows significant improvement in his PSA now has gone down to 159.5 compared to 179.51 previously At this point, will proceed with next cycle of chemotherapy with carboplatin/Jevtana and then he will return to clinic in 3 weeks with CBC CMP and PSA Progressive mild anemia, etiology unclear could be multifactorial including chemotherapy-induced, will continue to monitor Signed By: Sae Davies M.D. <<Signature on File>>
== END 2021-11-16 23:59 | disposition home or self-care (01) ==
LOC: ONCMED 08:48
PROVIDERS: PCP Internal Medicine; Visit Provider Internal Medicine Hematology & Oncology
DX: Z51.12 Encounter for antineoplastic immunotherapy (principal); Z51.11 Encounter for antineoplastic chemotherapy; C61 Malignant neoplasm of prostate; C77.8 Secondary and unspecified malignant neoplasm of lymph nodes of multiple regions; C79.51 Secondary malignant neoplasm of bone; R53.82 Chronic fatigue, unspecified; Z79.52 Long term (current) use of systemic steroids; I82.401 Acute embolism and thrombosis of unspecified deep veins of right lower extremity; Z79.01 Long term (current) use of anticoagulants; Z79.899 Other long term (current) drug therapy
CPT/HCPCS: 80053; 84153; 85025; 96367; 96372; 96375; 96377; 96413; 96417; 99215; J1100; J1200; J1453; J2469; J2506; J3490; J7050; J9043; J9045

== ENCOUNTER → 2021-11-10 10:23 | Outpatient (BNVA) | payer MEDICARE, BC, SELFPAY | PROVIDERS: PCP Internal Medicine; Visit Provider Orthopaedic Surgery | DX: S72.141A Displaced intertrochanteric fracture of right femur, initial encounter for closed fracture (principal); X58.XXXA Exposure to other specified factors, initial encounter; M16.11 Unilateral primary osteoarthritis, right hip; M11.251 Other chondrocalcinosis, right hip | CPT/HCPCS: 73502 ==

== ENCOUNTER 2021-12-15 06:43 | Outpatient (RCR) | payer MEDICARE, BC, SELFPAY ==
[2021-11-24 08:59] LABS: Basophils % 0.7 %; Eosinophils % 0.5 %; Hematocrit 30.5 % (42.0-52.0); Hemoglobin 9.7 g/dL (11.7-16.6); Lymphocytes # 0.6 10^3/uL (0.8-4.8); Lymphocytes % 11.2 %; Mean Corpuscular HGB Conc 31.8 g/dL (30.0-36.0); Mean Corpuscular Hemoglobin 32.4 pg (28.0-34.0); Mean Platelet Volume 9.6 fL (7.4-10.4); Monocytes # 0.5 10^3/uL (0.2-0.9); Monocytes % 9.2 %; Neutrophils # 4.33 10^3/uL (1.8-7.7); Neutrophils % 77.9 %; Nucleated Red Blood Cells % 0 %; Platelet Count 171 10^3/cmm (130-400); Red Blood Count 2.99 10^6/uL (4.1-5.3); Red Cell Distribution Width 19.1 % (12.1-15.1); White Blood Count 5.6 10^3/uL (4.0-10.0)
[2021-11-24 09:31] LABS: Alanine Aminotransferase 12 U/L (0-41); Albumin Level 3.9 g/dL (3.5-5.2); Alkaline Phosphatase 60 IU/L (40-130); Anion Gap 15.3 (5-19); Aspartate Amino Transferase 17 U/L (0-40); Blood Urea Nitrogen 11 mg/dL (8-23); Calcium 7.9 mg/dL (8.5-10.5); Carbon Dioxide 23 mmol/L (22-29); Chloride 104 mmol/L (98-107); Globulin 2.1 g/dL (1.3-4.6); Glucose 100 mg/dL (65-115); Osmolality Calculated 287 mOsm/kg (285-295); Potassium 3.3 mmol/L (3.5-5.1); Sodium 139 mmol/L (136-145); Total Bilirubin 0.4 mg/dL (0.15-1.2)
[2021-11-24] MEDS: sodium chloride 0.9% 250 ML 75 ML IV (11:05)
[2021-11-24] MEDS: famotidine 20 mg/2 mL INJ IVP (11:10)
[2021-11-24] MEDS: potassium chloride ER 10 mEq Tablet 20 MEQ PO (11:10)
[2021-11-24] MEDS: diphenhydrAMINE 50 mg/mL SDV 1mL 25 MG IV (11:13)
[2021-11-24] MEDS: palonosetron 0.25 mg/5 mL SDV IV (11:14)
[2021-11-24] MEDS: fosaprepitant 150 MG in sodium chloride 0.9% 150 ML 300 MG IV (11:34)
[2021-11-24] MEDS: pegfilgrastim 6 mg/0.6 mL Kit (onpro) SUBCUT (13:30)
[2021-11-24] MEDS: denosumab 120 mg SDV SUBCUT (14:50)
--- NOTE | 2021-11-25 17:56 | ONC FU_ITS ---
Dr. Davies follow up note Patient: Oli Aragon Unit #: [id number]: 1935 Dicatated By: Sae Davies M.D.Date of Visit:Nov 24, 2021 Onc Med Follow-up/Prog Note History of Present Illness: Mr. Aragon is an 85-year-old gentleman with history of prostate cancer diagnosed with LUZMARIA in June 2009, with his PSA was 16.8 In July 2009, he underwent biopsy of prostate gland. The final report came back Westmoreland score 9 (4+5) and Stephanie's 8 (4+4) CT scan of pelvis in showed right obturator lymph nodes. He was started on chemotherapy/biotherapy/hormonal therapy Lupron. In February 2010, followup study showed partial remission and no evidence of disease on scans. from April 2010 to May 2010, he received radiation therapy to a total of 7800 cGy to prostate and pelvic lymph nodes 4500 cGy. From January 2013 to January 2014, he was treated with Casodex with a PSA response. In January 2016 he was noted to have disease progression lymph node size was increasing on scan and PSA gone up to 12.8 On 08/04/2016 plan was to started Zytiga/prednisone , PSA 13.1. On 08/30/2016 PSA was 25.3. His last dose of Lupron was in January 2017. Initially it was given every 3 months and was changed to every 6 months with followup at [facility]. Zytiga was under consideration but because of cost it was not started as per oncology note from [facility] on 01/17/2017. CT scan of abdomen pelvis done at [facility] on 01/17/2017 showed increasing retroperitoneal and right pelvic lymphadenopathy. A bone scan done on 01/17/2017 showed new foci of uptake involving the sacrum are suspicious for skeletal metastases and new focal uptake at the anterior lateral aspect of the right fourth rib. Which is nonspecific for metastatic versus intraoral trauma. Incidental small right upper lobe pulmonary nodule is nonspecific follow-up suggested. In October 2018 Zytiga was obtained for Mr. Cortes. Mr Aragon was tolerating ADT wit lupron and Zytiga/prednisone well. Follow-up CT PET scan done on 11/10/2019 showed FDG negative, densely sclerotic osseous metastatic disease, consistent with sterilize malignancy. FDG positive lymph nodes in the right common iliac and mediastinal territories consistent with recurrent active malignancy. MRI scan of thoracic spine done on 11/07/2019 showed blastic well circumcised metastatic lesion involving T1 and T5 vertebral bodies likely previous treated, no significant edema or enhancement. No other visualized metastatic lesion. Mild chronic compression superior endplate T4 with incidental hemangioma Mr Aragon was referred to pulmonology for evaluation of mediastinal lymphadenopathy. He underwent bronchoscopy on 12/07/2019 right middle lobe. Endobronchial biopsy showed benign respiratory mucosa and cartilage. No malignancy identified. His PSA has continued to elevate and had recommended changing him to enzalutamide 160 mg p.o. daily and discontinue the Zytiga/prednisone. He will continue with the Xgeva and Lupron. started Xtandi On February 09, 2020 While waiting for repeat bronchoscopy, follow-up CT scan of chest was done on March 05, 2020 which showed stable previously described FDG avid normal and slightly prominent lymph nodes right hilum, left AP window and subcarinal hilar lymph nodes are stable. Subcarinal lymph node is slightly enlarged measuring 11 mm unchanged from previous scan done on November 10, 2019. No evidence of progressive lymphadenopathy. Mild chronic emphysematous changes seen. No acute pulmonary infiltrates. Noncalcified fibrotic appearing nodule right upper lobe measuring 4 mm. Sclerotic FDG negative lesions consistent with treated osseous metastatic disease more prominent at T1, T5 and right fifth rib. Due to persistent severe diarrhea, Xtandi was put on hold on April 14, 2020,Restarted on July 31, 2020 but with low-dose e.g. 80 mg p.o. daily Which was discontinued on August 29, 2020 because of persistent abdominal pain, diarrhea Started on systemic therapy with Taxotere on October 28, 2020, Along with 3 monthly Lupron and Xgeva. While on Taxotere, patient's PSA continue to increase, On December 01, 2020 his PSA was 77.01 compared to 68.44 on November 17 and 46.62 on October 28, 2020, thus follow-up CT scan of chest abdomen pelvis was done on December 11, 2020 which shows suspicious for progression of metastatic bone disease, new lesion in his thoracic spine, ribs and right ilium. And increasing lymph nodes along the right iliac chain measuring about 2.3 x 2.4 cm. No pulmonary nodules, no increase in size of indeterminate bilateral hilar lymph nodes Bone scan done on December 11, 2020 shows mild progression of metastatic bone disease since October 2019, now new lesions in the thoracic vertebrae right ilium and posterior right fifth rib versus scapula. Guardant 360 done on December 17, 2020 showed no obvious targetable therapeutic mutations Mr Aragon started on Jevtana/Prednisone on January 08, 2021 along with monthly Xgeva and 3 monthly Lupron. He has tolerated it well thus far. MRI lumbar spine done on February 02, 2021 showed enhancing metastatic lesion involving right aspect of sacrum S1 unchanged since bone scan done on December 11, 2020, mass measuring 4.2 x 3.9 x 2.1 cm. Enhancing metastatic lesion involving posterior L1 spinous process is also unchanged. No evidence of enhancing epidural disease. Mild right L5-S1 foraminal narrowing. , patient is status post radiation therapy to sacrum in the past . Mr. Aragon has continued treatment with Jevtana, denosumab and Depo-Lupron. Follow-up CT PET scan done on March 28, 2021 showed the index right iliac lymph node seen on prior studies unchanged in size, currently measuring 2 cm but SUV have improved to 5.9 from 11.1 previously. Similarly a cluster of nodes in the right common iliac territories slightly improved. Mediastinal lymph nodes seen on prior studies are still FDG positive but are improved since October 2019 and are again noted in subcarinal, subaortic, right paratracheal, right paraesophageal, bilateral hilar territory. New sclerotic osseous metastatic disease is present in right iliac, T10, T11 bones and other lesions in T1, T5 and right fifth rib and S1 locations are stable He continued treatment and is tolerating Jevtana/Lupron/Xgeva well. Follow-up PSMA scan done on July 21, 2021 showed no abnormal tracer uptake in prostate/prostate bed. There is intense tracer uptake associated with an enlarged right internal iliac lymph node. Extensive right pelvic lymphadenopathy beginning in the right paracaval region just superior to the bifurcation extending along the right common iliac chain with associated intense tracer uptake. There are multiple foci of intense uptake involving spine, including C7, T1, T4, T6, T10 and T11 and posterior spinous process of L1. Additionally multiple moderate to intense foci of radiotracer uptake involving bilateral ribs. And sacrum and right iliac bone. Calcified mediastinal lymph nodes represent sequelae of old granulomatous disease. No other abnormality seen in the lungs except small indeterminate groundglass nodule in the right upper lobe which measures about 3 mm. As per patient on September 09, 2021 he went to [facility] with palpitation and shortness of breath and chest wall pain, underwent CTA chest, which was negative for pulmonary embolism, multiple sclerotic osseous metastatic lesions within the spine and ribs most are not significantly changed from prior study however. New lesions within T10-T11 vertebral body also had lower extremity venous Doppler study done on September 09, 2021 which shows acute right lower extremity DVT, patient was started on anticoagulation, now being monitored by Dr. Ochoa. Tolerating Jevtana/ADT with Lupron/Xgeva, well, Because of progressive PSA carboplatin was added to Jevtana on September 22, 2021 Patient had a fall, which caused worsening of right hip/leg pain, MRI scan of the pelvis done on October 05, 2021 showed nondisplaced acute fracture right hip extends from the greater trochanter inferiorly to the proximal femur. There is overlying soft tissue edema adjacent to greater trochanter there is no marrow edema and femoral neck or head. Soft tissue edema extends into muscles surrounding the right hip and there is enhancement along fracture site. There are 2 metastatic lesion in the right ilium largest being 15 mm, slightly increased in size. Previously described S1 lesion is the identified and extends into the right S1 sacral foramen. Again noted is soft tissue mass in the right pelvis contiguous with S1 metastatic side consistent with adenopathy. MRI scan of lumbar spine done on same date showed mild progression of metastatic disease with partial enhancement involving right S1 segment with extension into the right pelvis. Known metastatic lesion superior T11 vertebral body. Mild progression of enhancing metastatic lesion involving L1 spinous process. Soft tissue mass/lymphadenopathy in the right pelvis partially encasing the right internal and external iliac arteries contiguous with metastatic lesion in S1 and mild encroachment into the right L5-S1 neural foramen patient was referred to orthopedics, as per patient he was advised, supportive care and to use crutches or walker to minimize pressure on the right hip for proper healing .Came for follow-up, denies any specific complaints, no fever chills, no nausea or vomiting, no diarrhea or constipation, right hip pain is improving now on the scale of 1-10 is around 3, no dysuria or hematuria, no new bony pains, no peripheral neuropathy. Tolerating Jevtana/carboplatin/Lupron/Xgeva well otherwise Medications: Ambien 1 Tablet (of 5 mg) Oral at bedtime, diphenhydrAMINE HCl (25 mg) Capsule Oral at bedtime PRN, Eliquis Tablet Oral, Lansoprazole (30 mg) Capsule Delayed Release Oral daily, Mirtazapine 1 Tablet (of 15 mg) Oral at bedtime PRN, Ondansetron HCl 1 Tablet (of 4 mg) Oral q 6 hours PRN, predniSONE 1 Tablet (of 10 mg) Oral daily, Tums 1 (500 mg) Tablet, chewable Oral PRN Allergies: No Known Allergies. Review of Systems: Review of Systems is not available for this patient. Vital Signs: Performed on Nov 24, 2021 10:23 Height - 76.00 in Weight - 175.8 lbs (LOW) BSA - 2.10 sq.m BMI - 21.40 Temperature - 97.5 F (LOW) Pulse - 76 /min Respiration - 18 /min BP - 119/72 mm(hg) O2 Sat - 96 % Pain - 3 Fatigue - 5 Performance Status: 1 - No physically strenuous activity, but ambulatory and able to carry out light or sedentary work (e.g. office work, light house work). (ECOG) Physical Examination: ENMT - No mouth sores, no thrush, no jaundice, Respiratory - Lungs are clear to auscultation, Cardiovascular - Regular rate and rhythm of heart, Abdomen - Soft, bowel sounds present, Extremities - No visible edema. Lab/Imaging: Test performed on Nov 24, 2021 08:40 Sodium 139 mmol/L Potassium 3.3 mmol/L Chloride 104 mmol/L CO2 23 mmol/L Anion Gap 15.3 BUN 11 mg/dL Creatinine 0.7 mg/dL Cr Clearance (Est) 89.8100 mL/min Glucose 100 mg/dL Osmolality - Calculated 287 mOsm/kg Calcium 7.9 mg/dL Protein, Total 6.0 g/dL Albumin 3.9 g/dL Globulin 2.1 g/dL Bilirubin, Total 0.4 mg/dL ALT (SGPT) 12 U/L AST (SGOT) 17 U/L Alkaline Phosphatase 60 IU/L WBC 5.6 10 3/uL RBC 2.99 10 6/uL HGB 9.7 g/dL HCT 30.5 % MCV 102.0 fl MCH 32.4 pg MCHC 31.8 g/dL RDW 19.1 % Platelet Count 171 10 3/cmm MPV 9.6 fL Neutrophils 4.33 10 3/uL Lymphocytes 0.6 10 3/uL Monocytes 0.5 10 3/uL Eosinophils 0.0 10 3/uL Basophils 0.0 10 3/uL Neutrophil % 77.9 % Lymphocyte % 11.2 % Monocyte % 9.2 % Eosinophil % 0.5 % Basophils % 0.7 % NRBC % 0 % PSA 135.300 ng/mL Impression: Adenocarcinoma of prostate,Initially diagnosed in July 2009, status post radiation. Prostate and pelvic lymph nodes in April 2010, now with recurrent with pelvic/retroperitoneal lymphadenopathy and abnormal bone scan. On Lupron at [facility] Bone scan done on 05/11/2017 showed no evidence of bony metastatic disease Rising PSA while on Lupron Started on zytiga 1000 mg po qd and prednisone 5 mg twice a day on 06/08/2017 in his PSA on June 06/2017 was 134 Fatigue probably multifactorial including hormone withdrawal recent History of fall from the tree, with injury to tailbone and right ribs Bone scan done on 07/20/2017 at [facility] showed 2 new lesions, one in the region of T2 and on in the pelvis likely skeletal metastasis. Multiple ribs lesions probably due to trauma Chest x-ray done on 09/26/2017 showed normal visualized bone structures. No acute changes bone scan done on 09/28/2007 showed metastatic bone disease is stable with no progression or improvement since 07/20/2017 CT scan of abdomen pelvis done on 07/20/2017 at [facility] showed retroperitoneal lymphadenopathy is stable or slightly smaller soft tissue nodule in the Florence's pouch is unchanged New sclerotic lesion in the right anterior sacrum at S1 -S 3 may represent new focus of bone metastases Bone scan done on 07/24/2018 showed no new focus of increased activity, overall decreased activity of previously noted metastatic/posttraumatic changes since 09/28/2017. Unchanged cervicothoracic spine increase activity, probably related to prior anterior fusion changes. CT scan of pelvis done on 07/24/2018 showed no pelvic lymphadenopathy, a small soft tissue nodule measuring 10 mm inseparable from the right iliac vein, has been present since 01/17/2017 Venous Doppler study right leg shows no DVT CT scan of abdomen pelvis done on 2018 showed incidental left renal cyst without change Prior appendicectomy Stable right-sided pericaval lymph node. Variable appearance of blastic metastatic lesion right sacral ala and right side of S1 vertebral body bone scan done on 11/03/2018 showed increased uptake in right sacrum stable T4 lesion, and resolution of left costochondral lesions Status post radiation therapy to right sacroiliac area Follow-up bone scan done on 10/29/2019 shows no evidence of disease progression, no new area of metastatic disease Stable to slightly improved metastatic lesion involving the right posterior sacrum Additional stable to improve lesion involving the right T4 vertebral body and posterior fourth rib. Follow-up CT PET scan done on 11/10/2019 showed FDG negative, densely sclerotic osseous metastatic disease, consistent with sterilize malignancy. FDG positive lymph nodes in the right common iliac and mediastinal territories consistent with recurrent active malignancy. MRI scan of thoracic spine done on 11/07/2019 showed blastic well circumcised metastatic lesion involving T1 and T5 vertebral bodies likely previous treated, no significant edema or enhancement. No other visualized metastatic lesion. Mild chronic compression superior endplate T4 with incidental hemangioma Mr Aragon was referred to pulmonology for evaluation of mediastinal lymphadenopathy. He underwent bronchoscopy on 12/07/2019 right middle lobe. Endobronchial biopsy showed benign respiratory mucosa and cartilage. No malignancy identified. His PSA has continued to elevate and had recommended changing him to enzalutamide 160 mg p.o. daily and discontinue the Zytiga/prednisone. He will continue with the Xgeva and Lupron. Xtandi was put on hold on April 14, 2020 because of diarrhea and eventually discontinued, his PSA continues to go up while on docetaxel and on December 17, 2020 his PSA was 84.9 compared to 68.4 on November 17, at that time he was decided to discontinue Taxotere and last dose was given on November 17, 2020, his treatment was discussed and changed to Jevtana on January 08, 2021 will continue on monthly Xgeva and 3 monthly Lupron. Follow-up CT PET scan done on March 28, 2021 shows new sclerotic osseous metastatic disease in the right iliac, T10, T11 bone other lesions in T1, T5 and S1 locations are stable, index right common iliac lymph node seen on prior scan done in October 2019 showed SUV has improved and cluster of lymph node in the right common iliac territory has improved mediastinal lymph nodes also shows improvement, Based on stable findings on CT PET scan although persistently elevated PSA around 90, he was decided to continue with Jevtana/Lupron/Xgeva Right lower extremity DVT, started on anticoagulation on September 09, 2021, Dr. Ochoa is managing Plan: Discussed with patient regarding his labs white blood count 5.6 hemoglobin 9.7 hematocrit 30.5 platelets 171,000 CMP within normal limit except potassium 3.3 and PSA 135.3 compared to 159.5 on November 03, 2021 Clinically, patient is doing well with no new signs symptoms history of disease progression, tolerating palliative therapy with Jevtana/carboplatin well along with 3 monthly Lupron and Xgeva well, will proceed with next dose of Jevtana/carboplatin today and then he will return to clinic in 3 weeks with CBC CMP and PSA if reasonable for next dose of chemo and 3 monthly Lupron. Signed By: Sae Davies M.D. <<Signature on File>>
[2021-12-15 09:16] LABS: Basophils # 0.1 10^3/uL (0.0-0.1); Basophils % 0.5 %; Eosinophils % 0.1 %; Hematocrit 27.9 % (42.0-52.0); Lymphocytes # 0.7 10^3/uL (0.8-4.8); Lymphocytes % 7.3 %; Mean Corpuscular HGB Conc 32.3 g/dL (30.0-36.0); Mean Corpuscular Hemoglobin 34.7 pg (28.0-34.0); Mean Corpuscular Volume 107.7 fl (80-94); Mean Platelet Volume 9.8 fL (7.4-10.4); Monocytes # 0.6 10^3/uL (0.2-0.9); Monocytes % 6.4 %; Neutrophils % 85.2 %; Nucleated Red Blood Cells % 0 %; Platelet Count 174 10^3/cmm (130-400); Red Blood Count 2.59 10^6/uL (4.1-5.3); Red Cell Distribution Width 18.9 % (12.1-15.1); White Blood Count 9.9 10^3/uL (4.0-10.0)
[2021-12-15 09:39] LABS: Alanine Aminotransferase 11 U/L (0-41); Albumin Level 3.9 g/dL (3.5-5.2); Alkaline Phosphatase 62 IU/L (40-130); Anion Gap 13.3 (5-19); Aspartate Amino Transferase 16 U/L (0-40); Blood Urea Nitrogen 9 mg/dL (8-23); Carbon Dioxide 24 mmol/L (22-29); Chloride 105 mmol/L (98-107); Globulin 1.8 g/dL (1.3-4.6); Glucose 97 mg/dL (65-115); Osmolality Calculated 287 mOsm/kg (285-295); Potassium 3.3 mmol/L (3.5-5.1); Sodium 139 mmol/L (136-145); Total Bilirubin 0.3 mg/dL (0.15-1.2); Total Protein 5.7 g/dL (6.6-8.7)
--- NOTE | 2021-12-15 11:07 | ONC FU_ITS ---
Yvette Campos Progress Note Patient: Oli Aragon Unit #: [id number]: 1935 Dicatated By: Yvette Campos N.P.Date of Visit:Dec 15, 2021 Onc MED Follow-up/Prog Note Chief Complaint: Prostate cancer History of Present Illness: Mr. Aragon is an 85-year-old gentleman with history of prostate cancer diagnosed with LUZMARIA in June 2009, with his PSA was 16.8 In July 2009, he underwent biopsy of prostate gland. The final report came back Stephanie score 9 (4+5) and Mcintosh's 8 (4+4) CT scan of pelvis in showed right obturator lymph nodes. He was started on chemotherapy/biotherapy/hormonal therapy Lupron. In February 2010, followup study showed partial remission and no evidence of disease on scans. from April 2010 to May 2010, he received radiation therapy to a total of 7800 cGy to prostate and pelvic lymph nodes 4500 cGy. From January 2013 to January 2014, he was treated with Casodex with a PSA response. In January 2016 he was noted to have disease progression lymph node size was increasing on scan and PSA gone up to 12.8 On 08/04/2016 plan was to started Zytiga/prednisone , PSA 13.1. On 08/30/2016 PSA was 25.3. His last dose of Lupron was in January 2017. Initially it was given every 3 months and was changed to every 6 months with followup at [facility] ([place] Zytiga was under consideration but because of cost it was not started as per oncology note from [facility] on 01/17/2017. CT scan of abdomen pelvis done at [facility] on 01/17/2017 showed increasing retroperitoneal and right pelvic lymphadenopathy. A bone scan done on 01/17/2017 showed new foci of uptake involving the sacrum are suspicious for skeletal metastases and new focal uptake at the anterior lateral aspect of the right fourth rib. Which is nonspecific for metastatic versus intraoral trauma. Incidental small right upper lobe pulmonary nodule is nonspecific follow-up suggested. In October 2018 Zytiga was obtained for Mr. Cortes. Mr Aragon was tolerating ADT wit lupron and Zytiga/prednisone well. Follow-up CT PET scan done on 11/10/2019 showed FDG negative, densely sclerotic osseous metastatic disease, consistent with sterilize malignancy. FDG positive lymph nodes in the right common iliac and mediastinal territories consistent with recurrent active malignancy. MRI scan of thoracic spine done on 11/07/2019 showed blastic well circumcised metastatic lesion involving T1 and T5 vertebral bodies likely previous treated, no significant edema or enhancement. No other visualized metastatic lesion. Mild chronic compression superior endplate T4 with incidental hemangioma Mr Aragon was referred to pulmonology for evaluation of mediastinal lymphadenopathy. He underwent bronchoscopy on 12/07/2019 right middle lobe. Endobronchial biopsy showed benign respiratory mucosa and cartilage. No malignancy identified. His PSA has continued to elevate and had recommended changing him to enzalutamide 160 mg p.o. daily and discontinue the Zytiga/prednisone. He will continue with the Xgeva and Lupron. started Xtandi On February 09, 2020 While waiting for repeat bronchoscopy, follow-up CT scan of chest was done on March 05, 2020 which showed stable previously described FDG avid normal and slightly prominent lymph nodes right hilum, left AP window and subcarinal hilar lymph nodes are stable. Subcarinal lymph node is slightly enlarged measuring 11 mm unchanged from previous scan done on November 10, 2019. No evidence of progressive lymphadenopathy. Mild chronic emphysematous changes seen. No acute pulmonary infiltrates. Noncalcified fibrotic appearing nodule right upper lobe measuring 4 mm. Sclerotic FDG negative lesions consistent with treated osseous metastatic disease more prominent at T1, T5 and right fifth rib. Due to persistent severe diarrhea, Xtandi was put on hold on April 14, 2020,Restarted on July 31, 2020 but with low-dose e.g. 80 mg p.o. daily Which was discontinued on August 29, 2020 because of persistent abdominal pain, diarrhea Started on systemic therapy with Taxotere on October 28, 2020, Along with 3 monthly Lupron and Xgeva. While on Taxotere, patient's PSA continue to increase, On December 01, 2020 his PSA was 77.01 compared to 68.44 on November 17 and 46.62 on October 28, 2020, thus follow-up CT scan of chest abdomen pelvis was done on December 11, 2020 which shows suspicious for progression of metastatic bone disease, new lesion in his thoracic spine, ribs and right ilium. And increasing lymph nodes along the right iliac chain measuring about 2.3 x 2.4 cm. No pulmonary nodules, no increase in size of indeterminate bilateral hilar lymph nodes Bone scan done on December 11, 2020 shows mild progression of metastatic bone disease since October 2019, now new lesions in the thoracic vertebrae right ilium and posterior right fifth rib versus scapula. Guardant 360 done on December 17, 2020 showed no obvious targetable therapeutic mutations Mr Aragon started on Jevtana/Prednisone on January 08, 2021 along with monthly Xgeva and 3 monthly Lupron. He has tolerated it well thus far. MRI lumbar spine done on February 02, 2021 showed enhancing metastatic lesion involving right aspect of sacrum S1 unchanged since bone scan done on December 11, 2020, mass measuring 4.2 x 3.9 x 2.1 cm. Enhancing metastatic lesion involving posterior L1 spinous process is also unchanged. No evidence of enhancing epidural disease. Mild right L5-S1 foraminal narrowing. , patient is status post radiation therapy to sacrum in the past . Mr. Aragon has continued treatment with Jevtana, denosumab and Depo-Lupron. Follow-up CT PET scan done on March 28, 2021 showed the index right iliac lymph node seen on prior studies unchanged in size, currently measuring 2 cm but SUV have improved to 5.9 from 11.1 previously. Similarly a cluster of nodes in the right common iliac territories slightly improved. Mediastinal lymph nodes seen on prior studies are still FDG positive but are improved since October 2019 and are again noted in subcarinal, subaortic, right paratracheal, right paraesophageal, bilateral hilar territory. New sclerotic osseous metastatic disease is present in right iliac, T10, T11 bones and other lesions in T1, T5 and right fifth rib and S1 locations are stable He continued treatment and is tolerating Jevtana/Lupron/Xgeva well. Follow-up PSMA scan done on July 21, 2021 showed no abnormal tracer uptake in prostate/prostate bed. There is intense tracer uptake associated with an enlarged right internal iliac lymph node. Extensive right pelvic lymphadenopathy beginning in the right paracaval region just superior to the bifurcation extending along the right common iliac chain with associated intense tracer uptake. There are multiple foci of intense uptake involving spine, including C7, T1, T4, T6, T10 and T11 and posterior spinous process of L1. Additionally multiple moderate to intense foci of radiotracer uptake involving bilateral ribs. And sacrum and right iliac bone. Calcified mediastinal lymph nodes represent sequelae of old granulomatous disease. No other abnormality seen in the lungs except small indeterminate groundglass nodule in the right upper lobe which measures about 3 mm. As per patient on September 09, 2021 he went to [facility] with palpitation and shortness of breath and chest wall pain, underwent CTA chest, which was negative for pulmonary embolism, multiple sclerotic osseous metastatic lesions within the spine and ribs most are not significantly changed from prior study however. New lesions within T10-T11 vertebral body also had lower extremity venous Doppler study done on September 09, 2021 which shows acute right lower extremity DVT, patient was started on anticoagulation, now being monitored by Dr. Ochoa. Tolerating Jevtana/ADT with Lupron/Xgeva, well, Because of progressive PSA carboplatin was added to Jevtana on September 22, 2021 Patient had a fall, which caused worsening of right hip/leg pain, MRI scan of the pelvis done on October 05, 2021 showed nondisplaced acute fracture right hip extends from the greater trochanter inferiorly to the proximal femur. There is overlying soft tissue edema adjacent to greater trochanter there is no marrow edema and femoral neck or head. Soft tissue edema extends into muscles surrounding the right hip and there is enhancement along fracture site. There are 2 metastatic lesion in the right ilium largest being 15 mm, slightly increased in size. Previously described S1 lesion is the identified and extends into the right S1 sacral foramen. Again noted is soft tissue mass in the right pelvis contiguous with S1 metastatic side consistent with adenopathy. MRI scan of lumbar spine done on same date showed mild progression of metastatic disease with partial enhancement involving right S1 segment with extension into the right pelvis. Known metastatic lesion superior T11 vertebral body. Mild progression of enhancing metastatic lesion involving L1 spinous process. Soft tissue mass/lymphadenopathy in the right pelvis partially encasing the right internal and external iliac arteries contiguous with metastatic lesion in S1 and mild encroachment into the right L5-S1 neural foramen patient was referred to orthopedics, as per patient he was advised, supportive care and to use crutches or walker to minimize pressure on the right hip for proper healing Patient presents today for follow-up. He denies weakness or fatigue. His appetite has been good. He fever chills. He does have hot flashes quite often. He denies sinus drainage or sore throat. No shortness of breath, cough, chest pain. He has diarrhea on and off but that has been a chronic condition for years. No urinary symptoms. He has right hip pain with on and off weakness in the right leg and paresthesia in the right leg. Today he is having more pain than usual but he denies falling or injuring that leg in any way. Review Of Symptoms: See above. Past Medical History: COVID 19 in 2019 Past Surgical History: Neck surgery in 2013 Appendectomy in 1970 Allergies: No Known Allergies. Medications: Ambien 1 Tablet (of 5 mg) Oral at bedtime diphenhydrAMINE HCl (25 mg) Capsule Oral at bedtime PRN Eliquis Tablet Oral Lansoprazole (30 mg) Capsule Delayed Release Oral daily Mirtazapine 1 Tablet (of 15 mg) Oral at bedtime PRN Ondansetron HCl 1 Tablet (of 4 mg) Oral q 6 hours PRN predniSONE 1 Tablet (of 10 mg) Oral daily Tums 1 (500 mg) Tablet, chewable Oral PRN Family History: Mr. Aragon's mother at age 89. Mr. Aragon's father at age 94. Social History: Mr. Aragon is and he is retired. Mr. Aragon no longer smokes but had smoked 0.5 packs/day for 8 years. He has no history of drinking. Mr. Aragon reports the following support systems: lives with spouse, significant other, family, or friends, lives in own house, supportive family/friends willing to assist with needs, and adequate transportation available for expected visits. His diet consists of regular meals. He indicates his activity level as: daily activities. Physical Examination: Performed on Dec 15, 2021 10:39: Height - 76.00 in, Weight - 174 lbs (LOW), BSA - 2.09 sq.m, BMI - 21.18, Temperature - 97.1 F (LOW), Pulse - 81 /min, Respiration - 17 /min, BP - 135/72 mm(hg), O2 Sat - 98 %, Pain - 7, and Fatigue - 5. Performance Status: 1 - No physically strenuous activity, but ambulatory and able to carry out light or sedentary work (e.g. office work, light house work). (ECOG) Constitutional Alert, cooperative, oriented. Mood and affect appropriate. Appears close to chronological age. Well nourished. Well developed. Head Normocephalic; no scars. Eyes Conjunctivae and sclerae are clear and without icterus. Pupils are reactive and equal. Respiratory Lungs are clear to auscultation without rhonchi or wheezing. Cardiovascular Regular rate and rhythm of heart without murmurs, gallops or rubs. Abdomen Non-tender, non-distended, no masses, ascites or hepatosplenomegaly. Good bowel sounds. No guarding or rebound tenderness. Extremities No visible deformities, no cyanosis, clubbing or edema. Pulses 3+ and equal bilaterally. Musculoskeletal right hip tenderness; pain with ambulation Psychiatric Alert and oriented times three. Coherent speech. Verbalizes understanding of our discussions today. Laboratory: Test performed on Dec 15, 2021 08:55 Sodium 139 mmol/L Potassium 3.3 mmol/L Chloride 105 mmol/L CO2 24 mmol/L Anion Gap 13.3 BUN 9 mg/dL Creatinine 0.9 mg/dL Cr Clearance (Est) 69.8500 mL/min Glucose 97 mg/dL Osmolality - Calculated 287 mOsm/kg Calcium 8.0 mg/dL Protein, Total 5.7 g/dL Albumin 3.9 g/dL Globulin 1.8 g/dL Bilirubin, Total 0.3 mg/dL ALT (SGPT) 11 U/L AST (SGOT) 16 U/L Alkaline Phosphatase 62 IU/L WBC 9.9 10 3/uL RBC 2.59 10 6/uL HGB 9.0 g/dL HCT 27.9 % MCV 107.7 fl MCH 34.7 pg MCHC 32.3 g/dL RDW 18.9 % Platelet Count 174 10 3/cmm MPV 9.8 fL Neutrophils 8.40 10 3/uL Lymphocytes 0.7 10 3/uL Monocytes 0.6 10 3/uL Eosinophils 0.0 10 3/uL Basophils 0.1 10 3/uL Neutrophil % 85.2 % Lymphocyte % 7.3 % Monocyte % 6.4 % Eosinophil % 0.1 % Basophils % 0.5 % NRBC % 0 % PSA 128.700 ng/mL Impression: Adenocarcinoma of prostate,Initially diagnosed in July 2009, status post radiation. Prostate and pelvic lymph nodes in April 2010, now with recurrent with pelvic/retroperitoneal lymphadenopathy and abnormal bone scan. On Lupron at [facility] Bone scan done on 05/11/2017 showed no evidence of bony metastatic disease Rising PSA while on Lupron Started on zytiga 1000 mg po qd and prednisone 5 mg twice a day on 06/08/2017 in his PSA on June 06/2017 was 134 Fatigue probably multifactorial including hormone withdrawal recent History of fall from the tree, with injury to tailbone and right ribs Bone scan done on 07/20/2017 at [facility] showed 2 new lesions, one in the region of T2 and on in the pelvis likely skeletal metastasis. Multiple ribs lesions probably due to trauma Chest x-ray done on 09/26/2017 showed normal visualized bone structures. No acute changes bone scan done on 09/28/2007 showed metastatic bone disease is stable with no progression or improvement since 07/20/2017 CT scan of abdomen pelvis done on 07/20/2017 at [facility] showed retroperitoneal lymphadenopathy is stable or slightly smaller soft tissue nodule in the Florence's pouch is unchanged New sclerotic lesion in the right anterior sacrum at S1 -S 3 may represent new focus of bone metastases Bone scan done on 07/24/2018 showed no new focus of increased activity, overall decreased activity of previously noted metastatic/posttraumatic changes since 09/28/2017. Unchanged cervicothoracic spine increase activity, probably related to prior anterior fusion changes. CT scan of pelvis done on 07/24/2018 showed no pelvic lymphadenopathy, a small soft tissue nodule measuring 10 mm inseparable from the right iliac vein, has been present since 01/17/2017 Venous Doppler study right leg shows no DVT CT scan of abdomen pelvis done on every 2018 showed incidental left renal cyst without change Prior appendicectomy Stable right-sided pericaval lymph node. Variable appearance of blastic metastatic lesion right sacral ala and right side of S1 vertebral body bone scan done on 11/03/2018 showed increased uptake in right sacrum stable T4 lesion, and resolution of left costochondral lesions Status post radiation therapy to right sacroiliac area Follow-up bone scan done on 10/29/2019 shows no evidence of disease progression, no new area of metastatic disease Stable to slightly improved metastatic lesion involving the right posterior sacrum Additional stable to improve lesion involving the right T4 vertebral body and posterior fourth rib. Follow-up CT PET scan done on 11/10/2019 showed FDG negative, densely sclerotic osseous metastatic disease, consistent with sterilize malignancy. FDG positive lymph nodes in the right common iliac and mediastinal territories consistent with recurrent active malignancy. MRI scan of thoracic spine done on 11/07/2019 showed blastic well circumcised metastatic lesion involving T1 and T5 vertebral bodies likely previous treated, no significant edema or enhancement. No other visualized metastatic lesion. Mild chronic compression superior endplate T4 with incidental hemangioma Mr Aragon was referred to pulmonology for evaluation of mediastinal lymphadenopathy. He underwent bronchoscopy on 12/07/2019 right middle lobe. Endobronchial biopsy showed benign respiratory mucosa and cartilage. No malignancy identified. His PSA has continued to elevate and had recommended changing him to enzalutamide 160 mg p.o. daily and discontinue the Zytiga/prednisone. He will continue with the Xgeva and Lupron. Xtandi was put on hold on April 14, 2020 because of diarrhea and eventually discontinued, his PSA continues to go up while on docetaxel and on December 17, 2020 his PSA was 84.9 compared to 68.4 on November 17, at that time he was decided to discontinue Taxotere and last dose was given on November 17, 2020, his treatment was discussed and changed to Jevtana on January 08, 2021 will continue on monthly Xgeva and 3 monthly Lupron. Follow-up CT PET scan done on March 28, 2021 shows new sclerotic osseous metastatic disease in the right iliac, T10, T11 bone other lesions in T1, T5 and S1 locations are stable, index right common iliac lymph node seen on prior scan done in October 2019 showed SUV has improved and cluster of lymph node in the right common iliac territory has improved mediastinal lymph nodes also shows improvement, Based on stable findings on CT PET scan although persistently elevated PSA around 90, he was decided to continue with Jevtana/Lupron/Xgeva Right lower extremity DVT, started on anticoagulation on September 09, 2021, Dr. Ochoa is managing Plan: Labs were discussed with patient. WBC 9.9, hemoglobin 9.0, hematocrit 27.9, and platelet count at 174,000. His PSA is decreased to 128.7 from 135.3. Patient is tolerating treatment with carboplatin and Jevtana every 3 weeks. He will receive cycle 5-day 1 today. He will also receive his Lupron injection today and every 3 months. It was noted on his labs that his hemoglobin and hematocrit are low so iron studies were added to lab order. We will determine further course of treatment when results are available. Patient continues to have pain in the right hip and leg. He has a history of a hairline hip fracture. We will continue to monitor pain in right hip and leg. If condition worsens or no improvement may obtain another x-ray. Patient will receive treatment today and return to clinic in 3 weeks with CBC, CMP, PSA. Signed By: Yvette Campos N.Camilla. <<Signature on File>>
[2021-12-15] MEDS: leuprolide 22.5 mg Kit IM (11:28)
[2021-12-15] MEDS: sodium chloride 0.9% 250 ML 75 ML IV (11:30)
[2021-12-15] MEDS: palonosetron 0.25 mg/5 mL SDV IV (11:30)
[2021-12-15] MEDS: famotidine 20 mg/2 mL INJ IVP (11:31)
[2021-12-15] MEDS: diphenhydrAMINE 50 mg/mL SDV 1mL 25 MG IV (11:33)
[2021-12-15] MEDS: fosaprepitant 150 MG in sodium chloride 0.9% 150 ML 300 MG IV (11:35)
[2021-12-15 11:38] LABS: Ferritin 368 ng/mL (30-400); Iron 67 ug/dL (59-158); Percent Saturation 29.7 % (20-50); Total Iron Binding Capacity 225 mcg/dl; Unsaturated Iron Binding 158 ug/dL (112-347)
[2021-12-15] MEDS: pegfilgrastim 6 mg/0.6 mL Kit (onpro) SUBCUT (14:30)
== END 2021-12-17 23:59 | disposition home or self-care (01) ==
LOC: ONCMED 06:43
PROVIDERS: Internal Medicine Hematology & Oncology; PCP Internal Medicine; Visit Provider Nurse Practitioner Family
DX: Z51.12 Encounter for antineoplastic immunotherapy (principal); Z51.11 Encounter for antineoplastic chemotherapy; C61 Malignant neoplasm of prostate; C77.8 Secondary and unspecified malignant neoplasm of lymph nodes of multiple regions; R53.82 Chronic fatigue, unspecified; Z79.52 Long term (current) use of systemic steroids; I82.501 Chronic embolism and thrombosis of unspecified deep veins of right lower extremity; Z79.01 Long term (current) use of anticoagulants
CPT/HCPCS: 80053; 82728; 83540; 83550; 84153; 85025; 96367; 96372; 96375; 96377; 96402; 96413; 96417; 99215; J0897; J1100; J1200; J1453; J2469; J2506; J3490; J7050; J9043; J9045; J9217

== ENCOUNTER 2022-01-05 06:40 | Outpatient (RCR) | payer MEDICARE, BC, SELFPAY ==
[2021-12-22 10:37] LABS: Basophils % 0.5 %; Eosinophils % 0.6 %; Hemoglobin 8.8 g/dL (11.7-16.6); Lymphocytes # 0.5 10^3/uL (0.8-4.8); Lymphocytes % 7.8 %; Mean Corpuscular HGB Conc 32.6 g/dL (30.0-36.0); Mean Corpuscular Hemoglobin 35.3 pg (28.0-34.0); Mean Corpuscular Volume 108.4 fl (80-94); Mean Platelet Volume 11.8 fL (7.4-10.4); Monocytes # 0.5 10^3/uL (0.2-0.9); Neutrophils # 5.23 10^3/uL (1.8-7.7); Neutrophils % 81.7 %; Nucleated Red Blood Cells % 0 %; Platelet Count 77 10^3/cmm (130-400); Red Blood Count 2.49 10^6/uL (4.1-5.3); Red Cell Distribution Width 16.5 % (12.1-15.1); White Blood Count 6.4 10^3/uL (4.0-10.0)
[2021-12-22 10:59] LABS: Alanine Aminotransferase 12 U/L (0-41); Albumin Level 3.8 g/dL (3.5-5.2); Alkaline Phosphatase 90 IU/L (40-130); Anion Gap 13.1 (5-19); Aspartate Amino Transferase 18 U/L (0-40); Blood Urea Nitrogen 14 mg/dL (8-23); Calcium 8.2 mg/dL (8.5-10.5); Carbon Dioxide 27 mmol/L (22-29); Chloride 103 mmol/L (98-107); Globulin 1.5 g/dL (1.3-4.6); Glucose 130 mg/dL (65-115); Osmolality Calculated 292 mOsm/kg (285-295); Potassium 3.1 mmol/L (3.5-5.1); Sodium 140 mmol/L (136-145); Total Bilirubin 0.3 mg/dL (0.15-1.2); Total Protein 5.3 g/dL (6.6-8.7)
[2021-12-22 11:18] LABS: Slide Review Slide Review Perform
[2021-12-22] MEDS: potassium chloride ER 10 mEq Tablet 20 MEQ PO (12:22)
[2021-12-22] MEDS: sodium chloride 0.9% 500 ML 999 ML IV (12:24)
[2021-12-22] MEDS: denosumab 120 mg SDV SUBCUT (13:05)
[2021-12-22 13:10] LABS: Magnesium 1.2 mg/dL (1.7-2.3)
--- NOTE | 2021-12-25 09:16 | ONC FU_ITS ---
Dr. Davies follow up note Patient: Oli Aragon Unit #: [id number]: 1935 Dicatated By: Sae Davies M.D.Date of Visit:Dec 22, 2021 Onc Med Follow-up/Prog Note History of Present Illness: Mr. Aragon is an 85-year-old gentleman with history of prostate cancer diagnosed with LUZMARIA in June 2009, with his PSA was 16.8 In July 2009, he underwent biopsy of prostate gland. The final report came back Agra score 9 (4+5) and Stephanie's 8 (4+4) CT scan of pelvis in showed right obturator lymph nodes. He was started on chemotherapy/biotherapy/hormonal therapy Lupron. In February 2010, followup study showed partial remission and no evidence of disease on scans. from April 2010 to May 2010, he received radiation therapy to a total of 7800 cGy to prostate and pelvic lymph nodes 4500 cGy. From January 2013 to January 2014, he was treated with Casodex with a PSA response. In January 2016 he was noted to have disease progression lymph node size was increasing on scan and PSA gone up to 12.8 On 08/04/2016 plan was to started Zytiga/prednisone , PSA 13.1. On 08/30/2016 PSA was 25.3. His last dose of Lupron was in January 2017. Initially it was given every 3 months and was changed to every 6 months with followup at [facility]. Zytiga was under consideration but because of cost it was not started as per oncology note from [facility] on 01/17/2017. CT scan of abdomen pelvis done at [facility] on 01/17/2017 showed increasing retroperitoneal and right pelvic lymphadenopathy. A bone scan done on 01/17/2017 showed new foci of uptake involving the sacrum are suspicious for skeletal metastases and new focal uptake at the anterior lateral aspect of the right fourth rib. Which is nonspecific for metastatic versus intraoral trauma. Incidental small right upper lobe pulmonary nodule is nonspecific follow-up suggested. In October 2018 Zytiga was obtained for Mr. Cortes. Mr Aragon was tolerating ADT wit lupron and Zytiga/prednisone well. Follow-up CT PET scan done on 11/10/2019 showed FDG negative, densely sclerotic osseous metastatic disease, consistent with sterilize malignancy. FDG positive lymph nodes in the right common iliac and mediastinal territories consistent with recurrent active malignancy. MRI scan of thoracic spine done on 11/07/2019 showed blastic well circumcised metastatic lesion involving T1 and T5 vertebral bodies likely previous treated, no significant edema or enhancement. No other visualized metastatic lesion. Mild chronic compression superior endplate T4 with incidental hemangioma Mr Aragon was referred to pulmonology for evaluation of mediastinal lymphadenopathy. He underwent bronchoscopy on 12/07/2019 right middle lobe. Endobronchial biopsy showed benign respiratory mucosa and cartilage. No malignancy identified. His PSA has continued to elevate and had recommended changing him to enzalutamide 160 mg p.o. daily and discontinue the Zytiga/prednisone. He will continue with the Xgeva and Lupron. started Xtandi On February 09, 2020 While waiting for repeat bronchoscopy, follow-up CT scan of chest was done on March 05, 2020 which showed stable previously described FDG avid normal and slightly prominent lymph nodes right hilum, left AP window and subcarinal hilar lymph nodes are stable. Subcarinal lymph node is slightly enlarged measuring 11 mm unchanged from previous scan done on November 10, 2019. No evidence of progressive lymphadenopathy. Mild chronic emphysematous changes seen. No acute pulmonary infiltrates. Noncalcified fibrotic appearing nodule right upper lobe measuring 4 mm. Sclerotic FDG negative lesions consistent with treated osseous metastatic disease more prominent at T1, T5 and right fifth rib. Due to persistent severe diarrhea, Xtandi was put on hold on April 14, 2020,Restarted on July 31, 2020 but with low-dose e.g. 80 mg p.o. daily Which was discontinued on August 29, 2020 because of persistent abdominal pain, diarrhea Started on systemic therapy with Taxotere on October 28, 2020, Along with 3 monthly Lupron and Xgeva. While on Taxotere, patient's PSA continue to increase, On December 01, 2020 his PSA was 77.01 compared to 68.44 on November 17 and 46.62 on October 28, 2020, thus follow-up CT scan of chest abdomen pelvis was done on December 11, 2020 which shows suspicious for progression of metastatic bone disease, new lesion in his thoracic spine, ribs and right ilium. And increasing lymph nodes along the right iliac chain measuring about 2.3 x 2.4 cm. No pulmonary nodules, no increase in size of indeterminate bilateral hilar lymph nodes Bone scan done on December 11, 2020 shows mild progression of metastatic bone disease since October 2019, now new lesions in the thoracic vertebrae right ilium and posterior right fifth rib versus scapula. Guardant 360 done on December 17, 2020 showed no obvious targetable therapeutic mutations Mr Aragon started on Jevtana/Prednisone on January 08, 2021 along with monthly Xgeva and 3 monthly Lupron. He has tolerated it well thus far. MRI lumbar spine done on February 02, 2021 showed enhancing metastatic lesion involving right aspect of sacrum S1 unchanged since bone scan done on December 11, 2020, mass measuring 4.2 x 3.9 x 2.1 cm. Enhancing metastatic lesion involving posterior L1 spinous process is also unchanged. No evidence of enhancing epidural disease. Mild right L5-S1 foraminal narrowing. , patient is status post radiation therapy to sacrum in the past . Mr. Aragon has continued treatment with Jevtana, denosumab and Depo-Lupron. Follow-up CT PET scan done on March 28, 2021 showed the index right iliac lymph node seen on prior studies unchanged in size, currently measuring 2 cm but SUV have improved to 5.9 from 11.1 previously. Similarly a cluster of nodes in the right common iliac territories slightly improved. Mediastinal lymph nodes seen on prior studies are still FDG positive but are improved since October 2019 and are again noted in subcarinal, subaortic, right paratracheal, right paraesophageal, bilateral hilar territory. New sclerotic osseous metastatic disease is present in right iliac, T10, T11 bones and other lesions in T1, T5 and right fifth rib and S1 locations are stable He continued treatment and is tolerating Jevtana/Lupron/Xgeva well. Follow-up PSMA scan done on July 21, 2021 showed no abnormal tracer uptake in prostate/prostate bed. There is intense tracer uptake associated with an enlarged right internal iliac lymph node. Extensive right pelvic lymphadenopathy beginning in the right paracaval region just superior to the bifurcation extending along the right common iliac chain with associated intense tracer uptake. There are multiple foci of intense uptake involving spine, including C7, T1, T4, T6, T10 and T11 and posterior spinous process of L1. Additionally multiple moderate to intense foci of radiotracer uptake involving bilateral ribs. And sacrum and right iliac bone. Calcified mediastinal lymph nodes represent sequelae of old granulomatous disease. No other abnormality seen in the lungs except small indeterminate groundglass nodule in the right upper lobe which measures about 3 mm. As per patient on September 09, 2021 he went to [facility] [place] [facility] with palpitation and shortness of breath and chest wall pain, underwent CTA chest, which was negative for pulmonary embolism, multiple sclerotic osseous metastatic lesions within the spine and ribs most are not significantly changed from prior study however. New lesions within T10-T11 vertebral body also had lower extremity venous Doppler study done on September 09, 2021 which shows acute right lower extremity DVT, patient was started on anticoagulation, now being monitored by Dr. Ochoa. Tolerating Jevtana/ADT with Lupron/Xgeva, well, Because of progressive PSA carboplatin was added to Jevtana on September 22, 2021 Patient had a fall, which caused worsening of right hip/leg pain, MRI scan of the pelvis done on October 05, 2021 showed nondisplaced acute fracture right hip extends from the greater trochanter inferiorly to the proximal femur. There is overlying soft tissue edema adjacent to greater trochanter there is no marrow edema and femoral neck or head. Soft tissue edema extends into muscles surrounding the right hip and there is enhancement along fracture site. There are 2 metastatic lesion in the right ilium largest being 15 mm, slightly increased in size. Previously described S1 lesion is the identified and extends into the right S1 sacral foramen. Again noted is soft tissue mass in the right pelvis contiguous with S1 metastatic side consistent with adenopathy. MRI scan of lumbar spine done on same date showed mild progression of metastatic disease with partial enhancement involving right S1 segment with extension into the right pelvis. Known metastatic lesion superior T11 vertebral body. Mild progression of enhancing metastatic lesion involving L1 spinous process. Soft tissue mass/lymphadenopathy in the right pelvis partially encasing the right internal and external iliac arteries contiguous with metastatic lesion in S1 and mild encroachment into the right L5-S1 neural foramen patient was referred to orthopedics, as per patient he was advised, supportive care and to use crutches or walker to minimize pressure on the right hip for proper healing Came for follow-up, denies any specific complaint except generalized weakness and fatigue, off and on diarrhea but now improving, no mucus or blood, no abdominal pain, no fever chills. No new bony pains, no dysuria or hematuria, no hemoptysis hematemesis, no mouth sores or thrush, tolerating carboplatin/Jevtana and Lupron/Xgeva, well otherwise. Medications: Ambien 1 Tablet (of 5 mg) Oral at bedtime, diphenhydrAMINE HCl (25 mg) Capsule Oral at bedtime PRN, Eliquis Tablet Oral, Lansoprazole (30 mg) Capsule Delayed Release Oral daily, Ondansetron HCl 1 Tablet (of 4 mg) Oral q 6 hours PRN, predniSONE 1 Tablet (of 10 mg) Oral daily, Tums 1 (500 mg) Tablet, chewable Oral PRN Allergies: No Known Allergies. Review of Systems: Review of Systems is not available for this patient. Vital Signs: Performed on Dec 22, 2021 11:45 Height - 76.00 in Weight - 172.4 lbs (LOW) BSA - 2.08 sq.m BMI - 20.99 Temperature - 97.7 F (LOW) Pulse - 70 /min Respiration - 16 /min BP - 115/64 mm(hg) O2 Sat - 97 % Pain - 5 Fatigue - 0 Performance Status: 1 - No physically strenuous activity, but ambulatory and able to carry out light or sedentary work (e.g. office work, light house work). (ECOG) Physical Examination: ENMT - No mouth sores, no thrush, no jaundice, Respiratory - Lungs are clear to auscultation, Cardiovascular - Regular rate and rhythm of heart, Abdomen - Soft, bowel sounds present, Extremities - No visible edema. Lab/Imaging: Test performed on Dec 15, 2021 08:55 Sodium 139 mmol/L Potassium 3.3 mmol/L Chloride 105 mmol/L CO2 24 mmol/L Anion Gap 13.3 BUN 9 mg/dL Creatinine 0.9 mg/dL Cr Clearance (Est) 69.8500 mL/min Glucose 97 mg/dL Osmolality - Calculated 287 mOsm/kg Calcium 8.0 mg/dL Protein, Total 5.7 g/dL Albumin 3.9 g/dL Globulin 1.8 g/dL Bilirubin, Total 0.3 mg/dL ALT (SGPT) 11 U/L AST (SGOT) 16 U/L Alkaline Phosphatase 62 IU/L WBC 9.9 10 3/uL RBC 2.59 10 6/uL HGB 9.0 g/dL HCT 27.9 % MCV 107.7 fl MCH 34.7 pg MCHC 32.3 g/dL RDW 18.9 % Platelet Count 174 10 3/cmm MPV 9.8 fL Neutrophils 8.40 10 3/uL Lymphocytes 0.7 10 3/uL Monocytes 0.6 10 3/uL Eosinophils 0.0 10 3/uL Basophils 0.1 10 3/uL Neutrophil % 85.2 % Lymphocyte % 7.3 % Monocyte % 6.4 % Eosinophil % 0.1 % Basophils % 0.5 % NRBC % 0 % PSA 128.700 ng/mL Impression: Adenocarcinoma of prostate,Initially diagnosed in July 2009, status post radiation. Prostate and pelvic lymph nodes in April 2010, now with recurrent with pelvic/retroperitoneal lymphadenopathy and abnormal bone scan. On Lupron at [facility] Bone scan done on 05/11/2017 showed no evidence of bony metastatic disease Rising PSA while on Lupron Started on zytiga 1000 mg po qd and prednisone 5 mg twice a day on 06/08/2017 in his PSA on June 06/2017 was 134 Fatigue probably multifactorial including hormone withdrawal recent History of fall from the tree, with injury to tailbone and right ribs Bone scan done on 07/20/2017 at [facility] showed 2 new lesions, one in the region of T2 and on in the pelvis likely skeletal metastasis. Multiple ribs lesions probably due to trauma Chest x-ray done on 09/26/2017 showed normal visualized bone structures. No acute changes bone scan done on 09/28/2007 showed metastatic bone disease is stable with no progression or improvement since 07/20/2017 CT scan of abdomen pelvis done on 07/20/2017 at [facility] showed retroperitoneal lymphadenopathy is stable or slightly smaller soft tissue nodule in the Florence's pouch is unchanged New sclerotic lesion in the right anterior sacrum at S1 -S 3 may represent new focus of bone metastases Bone scan done on 07/24/2018 showed no new focus of increased activity, overall decreased activity of previously noted metastatic/posttraumatic changes since 09/28/2017. Unchanged cervicothoracic spine increase activity, probably related to prior anterior fusion changes. CT scan of pelvis done on 07/24/2018 showed no pelvic lymphadenopathy, a small soft tissue nodule measuring 10 mm inseparable from the right iliac vein, has been present since 01/17/2017 Venous Doppler study right leg shows no DVT CT scan of abdomen pelvis done on 2018 showed incidental left renal cyst without change Prior appendicectomy Stable right-sided pericaval lymph node. Variable appearance of blastic metastatic lesion right sacral ala and right side of S1 vertebral body bone scan done on 11/03/2018 showed increased uptake in right sacrum stable T4 lesion, and resolution of left costochondral lesions Status post radiation therapy to right sacroiliac area Follow-up bone scan done on 10/29/2019 shows no evidence of disease progression, no new area of metastatic disease Stable to slightly improved metastatic lesion involving the right posterior sacrum Additional stable to improve lesion involving the right T4 vertebral body and posterior fourth rib. Follow-up CT PET scan done on 11/10/2019 showed FDG negative, densely sclerotic osseous metastatic disease, consistent with sterilize malignancy. FDG positive lymph nodes in the right common iliac and mediastinal territories consistent with recurrent active malignancy. MRI scan of thoracic spine done on 11/07/2019 showed blastic well circumcised metastatic lesion involving T1 and T5 vertebral bodies likely previous treated, no significant edema or enhancement. No other visualized metastatic lesion. Mild chronic compression superior endplate T4 with incidental hemangioma Mr Aragon was referred to pulmonology for evaluation of mediastinal lymphadenopathy. He underwent bronchoscopy on 12/07/2019 right middle lobe. Endobronchial biopsy showed benign respiratory mucosa and cartilage. No malignancy identified. His PSA has continued to elevate and had recommended changing him to enzalutamide 160 mg p.o. daily and discontinue the Zytiga/prednisone. He will continue with the Xgeva and Lupron. Xtandi was put on hold on April 14, 2020 because of diarrhea and eventually discontinued, his PSA continues to go up while on docetaxel and on December 17, 2020 his PSA was 84.9 compared to 68.4 on November 17, at that time he was decided to discontinue Taxotere and last dose was given on November 17, 2020, his treatment was discussed and changed to Jevtana on January 08, 2021 will continue on monthly Xgeva and 3 monthly Lupron. Follow-up CT PET scan done on March 28, 2021 shows new sclerotic osseous metastatic disease in the right iliac, T10, T11 bone other lesions in T1, T5 and S1 locations are stable, index right common iliac lymph node seen on prior scan done in October 2019 showed SUV has improved and cluster of lymph node in the right common iliac territory has improved mediastinal lymph nodes also shows improvement, Based on stable findings on CT PET scan although persistently elevated PSA around 90, he was decided to continue with Jevtana/Lupron/Xgeva Right lower extremity DVT, started on anticoagulation on September 09, 2021, Dr. Ochoa is managing Plan: Discussed with patient regarding his labs white blood count 6.4 hemoglobin 8.8 g hematocrit 27 platelets 77,000 CMP within normal limit except potassium 3.1 and iron 67 TIBC 225, ferritin is pending, PSA 137.8 compared to 128.7 previously Clinically, patient is doing reasonably well but in mild to moderate distress due to generalized weakness and fatigue and clinically appears dehydrated probably due to poor oral intake and diarrhea, we will consider hydration with normal saline 500 cc and also check magnesium level, if low, will consider supplement and also given potassium supplement Proceed with Xgeva and then will change his Xgeva to every 6 weeks to match with chemotherapy schedule. He will return to clinic in 2 weeks with CBC CMP and if reasonable, next cycle of chemotherapy. Patient was advised to maintain hydration Signed By: Sae Davies M.D. <<Signature on File>>
[2022-01-05 10:04] LABS: Basophils # 0.1 10^3/uL (0.0-0.1); Basophils % 0.6 %; Eosinophils # 0.1 10^3/uL (0.0-0.8); Eosinophils % 0.6 %; Hematocrit 29.7 % (42.0-52.0); Hemoglobin 9.4 g/dL (11.7-16.6); Lymphocytes # 1.1 10^3/uL (0.8-4.8); Lymphocytes % 13.6 %; Mean Corpuscular HGB Conc 31.6 g/dL (30.0-36.0); Mean Corpuscular Hemoglobin 35.2 pg (28.0-34.0); Mean Corpuscular Volume 111.2 fl (80-94); Monocytes # 0.8 10^3/uL (0.2-0.9); Monocytes % 9.6 %; Neutrophils # 6.13 10^3/uL (1.8-7.7); Neutrophils % 75.2 %; Nucleated Red Blood Cells % 0 %; Platelet Count 157 10^3/cmm (130-400); Red Blood Count 2.67 10^6/uL (4.1-5.3); Red Cell Distribution Width 16.5 % (12.1-15.1); White Blood Count 8.2 10^3/uL (4.0-10.0)
[2022-01-05 10:21] LABS: Alanine Aminotransferase 14 U/L (0-41); Albumin Level 3.8 g/dL (3.5-5.2); Alkaline Phosphatase 66 IU/L (40-130); Anion Gap 13.2 (5-19); Aspartate Amino Transferase 19 U/L (0-40); Blood Urea Nitrogen 10 mg/dL (8-23); Calcium 8.5 mg/dL (8.5-10.5); Carbon Dioxide 25 mmol/L (22-29); Chloride 105 mmol/L (98-107); Globulin 1.5 g/dL (1.3-4.6); Glucose 90 mg/dL (65-115); Osmolality Calculated 289 mOsm/kg (285-295); Potassium 3.2 mmol/L (3.5-5.1); Sodium 140 mmol/L (136-145); Total Bilirubin 0.3 mg/dL (0.15-1.2); Total Protein 5.3 g/dL (6.6-8.7)
[2022-01-05] MEDS: sodium chloride 0.9% 250 ML 75 ML IV (12:25)
[2022-01-05] MEDS: palonosetron 0.25 mg/5 mL SDV IV (12:25)
[2022-01-05] MEDS: famotidine 20 mg/2 mL INJ IVP (12:26)
[2022-01-05] MEDS: diphenhydrAMINE 50 mg/mL SDV 1mL 25 MG IV (12:28)
[2022-01-05] MEDS: fosaprepitant 150 MG in sodium chloride 0.9% 150 ML 300 MG IV (12:42)
[2022-01-05] MEDS: pegfilgrastim 6 mg/0.6 mL Kit (onpro) SUBCUT (15:15)
--- NOTE | 2022-01-06 09:40 | ONC FU_ITS ---
Dr. Davies follow up note Patient: Oli Aragon Unit #: [id number]: 1935 Dicatated By: Sae Davies M.D.Date of Visit:Jan 05, 2022 Onc Med Follow-up/Prog Note History of Present Illness: Mr. Aragon is an 86-year-old gentleman with history of prostate cancer diagnosed with LUZMARIA in June 2009, with his PSA was 16.8 In July 2009, he underwent biopsy of prostate gland. The final report came back Rockford score 9 (4+5) and Stephanie's 8 (4+4) CT scan of pelvis in showed right obturator lymph nodes. He was started on chemotherapy/biotherapy/hormonal therapy Lupron. In February 2010, followup study showed partial remission and no evidence of disease on scans. from April 2010 to May 2010, he received radiation therapy to a total of 7800 cGy to prostate and pelvic lymph nodes 4500 cGy. From January 2013 to January 2014, he was treated with Casodex with a PSA response. In January 2016 he was noted to have disease progression lymph node size was increasing on scan and PSA gone up to 12.8 On 08/04/2016 plan was to started Zytiga/prednisone , PSA 13.1. On 08/30/2016 PSA was 25.3. His last dose of Lupron was in January 2017. Initially it was given every 3 months and was changed to every 6 months with followup at [facility]. Zytiga was under consideration but because of cost it was not started as per oncology note from [facility] on 01/17/2017. CT scan of abdomen pelvis done at [facility] on 01/17/2017 showed increasing retroperitoneal and right pelvic lymphadenopathy. A bone scan done on 01/17/2017 showed new foci of uptake involving the sacrum are suspicious for skeletal metastases and new focal uptake at the anterior lateral aspect of the right fourth rib. Which is nonspecific for metastatic versus intraoral trauma. Incidental small right upper lobe pulmonary nodule is nonspecific follow-up suggested. In October 2018 Zytiga was obtained for Mr. Cortes. Mr Aragon was tolerating ADT wit lupron and Zytiga/prednisone well. Follow-up CT PET scan done on 11/10/2019 showed FDG negative, densely sclerotic osseous metastatic disease, consistent with sterilize malignancy. FDG positive lymph nodes in the right common iliac and mediastinal territories consistent with recurrent active malignancy. MRI scan of thoracic spine done on 11/07/2019 showed blastic well circumcised metastatic lesion involving T1 and T5 vertebral bodies likely previous treated, no significant edema or enhancement. No other visualized metastatic lesion. Mild chronic compression superior endplate T4 with incidental hemangioma Mr Aragon was referred to pulmonology for evaluation of mediastinal lymphadenopathy. He underwent bronchoscopy on 12/07/2019 right middle lobe. Endobronchial biopsy showed benign respiratory mucosa and cartilage. No malignancy identified. His PSA has continued to elevate and had recommended changing him to enzalutamide 160 mg p.o. daily and discontinue the Zytiga/prednisone. He will continue with the Xgeva and Lupron. started Xtandi On February 09, 2020 While waiting for repeat bronchoscopy, follow-up CT scan of chest was done on March 05, 2020 which showed stable previously described FDG avid normal and slightly prominent lymph nodes right hilum, left AP window and subcarinal hilar lymph nodes are stable. Subcarinal lymph node is slightly enlarged measuring 11 mm unchanged from previous scan done on November 10, 2019. No evidence of progressive lymphadenopathy. Mild chronic emphysematous changes seen. No acute pulmonary infiltrates. Noncalcified fibrotic appearing nodule right upper lobe measuring 4 mm. Sclerotic FDG negative lesions consistent with treated osseous metastatic disease more prominent at T1, T5 and right fifth rib. Due to persistent severe diarrhea, Xtandi was put on hold on April 14, 2020,Restarted on July 31, 2020 but with low-dose e.g. 80 mg p.o. daily Which was discontinued on August 29, 2020 because of persistent abdominal pain, diarrhea Started on systemic therapy with Taxotere on October 28, 2020, Along with 3 monthly Lupron and Xgeva. While on Taxotere, patient's PSA continue to increase, On December 01, 2020 his PSA was 77.01 compared to 68.44 on November 17 and 46.62 on October 28, 2020, thus follow-up CT scan of chest abdomen pelvis was done on December 11, 2020 which shows suspicious for progression of metastatic bone disease, new lesion in his thoracic spine, ribs and right ilium. And increasing lymph nodes along the right iliac chain measuring about 2.3 x 2.4 cm. No pulmonary nodules, no increase in size of indeterminate bilateral hilar lymph nodes Bone scan done on December 11, 2020 shows mild progression of metastatic bone disease since October 2019, now new lesions in the thoracic vertebrae right ilium and posterior right fifth rib versus scapula. Guardant 360 done on December 17, 2020 showed no obvious targetable therapeutic mutations Mr Aragon started on Jevtana/Prednisone on January 08, 2021 along with monthly Xgeva and 3 monthly Lupron. He has tolerated it well thus far. MRI lumbar spine done on February 02, 2021 showed enhancing metastatic lesion involving right aspect of sacrum S1 unchanged since bone scan done on December 11, 2020, mass measuring 4.2 x 3.9 x 2.1 cm. Enhancing metastatic lesion involving posterior L1 spinous process is also unchanged. No evidence of enhancing epidural disease. Mild right L5-S1 foraminal narrowing. , patient is status post radiation therapy to sacrum in the past . Mr. Aragon has continued treatment with Jevtana, denosumab and Depo-Lupron. Follow-up CT PET scan done on March 28, 2021 showed the index right iliac lymph node seen on prior studies unchanged in size, currently measuring 2 cm but SUV have improved to 5.9 from 11.1 previously. Similarly a cluster of nodes in the right common iliac territories slightly improved. Mediastinal lymph nodes seen on prior studies are still FDG positive but are improved since October 2019 and are again noted in subcarinal, subaortic, right paratracheal, right paraesophageal, bilateral hilar territory. New sclerotic osseous metastatic disease is present in right iliac, T10, T11 bones and other lesions in T1, T5 and right fifth rib and S1 locations are stable He continued treatment and is tolerating Jevtana/Lupron/Xgeva well. Follow-up PSMA scan done on July 21, 2021 showed no abnormal tracer uptake in prostate/prostate bed. There is intense tracer uptake associated with an enlarged right internal iliac lymph node. Extensive right pelvic lymphadenopathy beginning in the right paracaval region just superior to the bifurcation extending along the right common iliac chain with associated intense tracer uptake. There are multiple foci of intense uptake involving spine, including C7, T1, T4, T6, T10 and T11 and posterior spinous process of L1. Additionally multiple moderate to intense foci of radiotracer uptake involving bilateral ribs. And sacrum and right iliac bone. Calcified mediastinal lymph nodes represent sequelae of old granulomatous disease. No other abnormality seen in the lungs except small indeterminate groundglass nodule in the right upper lobe which measures about 3 mm. As per patient on September 09, 2021 he went to [facility] with palpitation and shortness of breath and chest wall pain, underwent CTA chest, which was negative for pulmonary embolism, multiple sclerotic osseous metastatic lesions within the spine and ribs most are not significantly changed from prior study however. New lesions within T10-T11 vertebral body also had lower extremity venous Doppler study done on September 09, 2021 which shows acute right lower extremity DVT, patient was started on anticoagulation, now being monitored by Dr. Ochoa. Tolerating Jevtana/ADT with Lupron/Xgeva, well, Because of progressive PSA carboplatin was added to Jevtana on September 22, 2021 Patient had a fall, which caused worsening of right hip/leg pain, MRI scan of the pelvis done on October 05, 2021 showed nondisplaced acute fracture right hip extends from the greater trochanter inferiorly to the proximal femur. There is overlying soft tissue edema adjacent to greater trochanter there is no marrow edema and femoral neck or head. Soft tissue edema extends into muscles surrounding the right hip and there is enhancement along fracture site. There are 2 metastatic lesion in the right ilium largest being 15 mm, slightly increased in size. Previously described S1 lesion is the identified and extends into the right S1 sacral foramen. Again noted is soft tissue mass in the right pelvis contiguous with S1 metastatic side consistent with adenopathy. MRI scan of lumbar spine done on same date showed mild progression of metastatic disease with partial enhancement involving right S1 segment with extension into the right pelvis. Known metastatic lesion superior T11 vertebral body. Mild progression of enhancing metastatic lesion involving L1 spinous process. Soft tissue mass/lymphadenopathy in the right pelvis partially encasing the right internal and external iliac arteries contiguous with metastatic lesion in S1 and mild encroachment into the right L5-S1 neural foramen patient was referred to orthopedics, as per patient he was advised, supportive care and to use crutches or walker to minimize pressure on the right hip for proper healing Came for follow-up, denies any specific complaints, no fever chills, no nausea or vomiting, no diarrhea or constipation, no dysuria or hematuria, no new bony pains, tolerating systemic therapy with Jevtana/carboplatin well along with Xgeva.And Lupron Medications: Ambien 1 Tablet (of 5 mg) Oral at bedtime, Daily Vitamin 1 Tablet Oral daily, diphenhydrAMINE HCl (25 mg) Capsule Oral at bedtime PRN, Eliquis Tablet Oral, Lansoprazole (30 mg) Capsule Delayed Release Oral daily, Ondansetron HCl 1 Tablet (of 4 mg) Oral q 6 hours PRN, predniSONE 1 Tablet (of 10 mg) Oral daily, Tums 1 (500 mg) Tablet, chewable Oral PRN Allergies: No Known Allergies. Review of Systems: Review of Systems is not available for this patient. Vital Signs: Performed on Jan 05, 2022 11:14 Height - 76.00 in Weight - 175.6 lbs (HIGH) BSA - 2.10 sq.m BMI - 21.37 Temperature - 97.8 F (LOW) Pulse - 83 /min Respiration - 16 /min BP - 144/77 mm(hg) (HIGH) O2 Sat - 96 % Pain - 5 Fatigue - 4 Performance Status: 1 - No physically strenuous activity, but ambulatory and able to carry out light or sedentary work (e.g. office work, light house work). (ECOG) Physical Examination: ENMT - No mouth sores, no thrush, no jaundice, Respiratory - Lungs are clear to auscultation, Cardiovascular - Regular rate and rhythm of heart, Abdomen - Soft, bowel sounds present, Extremities - Trace edema right leg. Lab/Imaging: Test performed on Jan 05, 2022 11:59 Creatinine 0.7 mg/dL Cr Clearance (Est) 88.21 mL/min Test performed on Dec 15, 2021 08:55 Sodium 139 mmol/L Potassium 3.3 mmol/L Chloride 105 mmol/L CO2 24 mmol/L Anion Gap 13.3 BUN 9 mg/dL Glucose 97 mg/dL Osmolality - Calculated 287 mOsm/kg Calcium 8.0 mg/dL Protein, Total 5.7 g/dL Albumin 3.9 g/dL Globulin 1.8 g/dL Bilirubin, Total 0.3 mg/dL ALT (SGPT) 11 U/L AST (SGOT) 16 U/L Alkaline Phosphatase 62 IU/L WBC 9.9 10 3/uL RBC 2.59 10 6/uL HGB 9.0 g/dL HCT 27.9 % MCV 107.7 fl MCH 34.7 pg MCHC 32.3 g/dL RDW 18.9 % Platelet Count 174 10 3/cmm MPV 9.8 fL Neutrophils 8.40 10 3/uL Lymphocytes 0.7 10 3/uL Monocytes 0.6 10 3/uL Eosinophils 0.0 10 3/uL Basophils 0.1 10 3/uL Neutrophil % 85.2 % Lymphocyte % 7.3 % Monocyte % 6.4 % Eosinophil % 0.1 % Basophils % 0.5 % NRBC % 0 % PSA 128.700 ng/mL Impression: Adenocarcinoma of prostate,Initially diagnosed in July 2009, status post radiation. Prostate and pelvic lymph nodes in April 2010, now with recurrent with pelvic/retroperitoneal lymphadenopathy and abnormal bone scan. On Lupron at [facility] Bone scan done on 05/11/2017 showed no evidence of bony metastatic disease Rising PSA while on Lupron Started on zytiga 1000 mg po qd and prednisone 5 mg twice a day on 06/08/2017 in his PSA on June 06/2017 was 134 Fatigue probably multifactorial including hormone withdrawal recent History of fall from the tree, with injury to tailbone and right ribs Bone scan done on 07/20/2017 at [facility] showed 2 new lesions, one in the region of T2 and on in the pelvis likely skeletal metastasis. Multiple ribs lesions probably due to trauma Chest x-ray done on 09/26/2017 showed normal visualized bone structures. No acute changes bone scan done on 09/28/2007 showed metastatic bone disease is stable with no progression or improvement since 07/20/2017 CT scan of abdomen pelvis done on 07/20/2017 at [facility] showed retroperitoneal lymphadenopathy is stable or slightly smaller soft tissue nodule in the Florence's pouch is unchanged New sclerotic lesion in the right anterior sacrum at S1 -S 3 may represent new focus of bone metastases Bone scan done on 07/24/2018 showed no new focus of increased activity, overall decreased activity of previously noted metastatic/posttraumatic changes since 09/28/2017. Unchanged cervicothoracic spine increase activity, probably related to prior anterior fusion changes. CT scan of pelvis done on 07/24/2018 showed no pelvic lymphadenopathy, a small soft tissue nodule measuring 10 mm inseparable from the right iliac vein, has been present since 01/17/2017 Venous Doppler study right leg shows no DVT CT scan of abdomen pelvis done on 2018 showed incidental left renal cyst without change Prior appendicectomy Stable right-sided pericaval lymph node. Variable appearance of blastic metastatic lesion right sacral ala and right side of S1 vertebral body bone scan done on 11/03/2018 showed increased uptake in right sacrum stable T4 lesion, and resolution of left costochondral lesions Status post radiation therapy to right sacroiliac area Follow-up bone scan done on 10/29/2019 shows no evidence of disease progression, no new area of metastatic disease Stable to slightly improved metastatic lesion involving the right posterior sacrum Additional stable to improve lesion involving the right T4 vertebral body and posterior fourth rib. Follow-up CT PET scan done on 11/10/2019 showed FDG negative, densely sclerotic osseous metastatic disease, consistent with sterilize malignancy. FDG positive lymph nodes in the right common iliac and mediastinal territories consistent with recurrent active malignancy. MRI scan of thoracic spine done on 11/07/2019 showed blastic well circumcised metastatic lesion involving T1 and T5 vertebral bodies likely previous treated, no significant edema or enhancement. No other visualized metastatic lesion. Mild chronic compression superior endplate T4 with incidental hemangioma Mr Aragon was referred to pulmonology for evaluation of mediastinal lymphadenopathy. He underwent bronchoscopy on 12/07/2019 right middle lobe. Endobronchial biopsy showed benign respiratory mucosa and cartilage. No malignancy identified. His PSA has continued to elevate and had recommended changing him to enzalutamide 160 mg p.o. daily and discontinue the Zytiga/prednisone. He will continue with the Xgeva and Lupron. Xtandi was put on hold on April 14, 2020 because of diarrhea and eventually discontinued, his PSA continues to go up while on docetaxel and on December 17, 2020 his PSA was 84.9 compared to 68.4 on November 17, at that time he was decided to discontinue Taxotere and last dose was given on November 17, 2020, his treatment was discussed and changed to Jevtana on January 08, 2021 will continue on monthly Xgeva and 3 monthly Lupron. Follow-up CT PET scan done on March 28, 2021 shows new sclerotic osseous metastatic disease in the right iliac, T10, T11 bone other lesions in T1, T5 and S1 locations are stable, index right common iliac lymph node seen on prior scan done in October 2019 showed SUV has improved and cluster of lymph node in the right common iliac territory has improved mediastinal lymph nodes also shows improvement, Based on stable findings on CT PET scan although persistently elevated PSA around 90, he was decided to continue with Jevtana/Lupron/Xgeva Right lower extremity DVT, started on anticoagulation on September 09, 2021, Dr. Ochoa is managing Plan: Discussed with patient regarding his labs white blood count 8.2 hemoglobin 9.4 hematocrit 29.7 platelets 157,000 CMP within normal limit except potassium 3.2 Clinically, patient is doing reasonably well without new complaints except chronic right hip pain which is under control with current pain medication, in fact, patient is taking ibuprofen and not requiring narcotics on regular basis. Will proceed with next dose of carboplatin/Jevtana today and then he will return to clinic in [address] scan of chest abdomen pelvis, bone scan to assess disease response and also consider right leg venous Doppler study as patient has history of DVT involving right leg for which he is on anticoagulation since August 2021, will also check D-dimer, if unremarkable, may consider discontinue anticoagulation or continue with low-dose anticoagulation as patient is at high risk for DVT/PE due to active malignancy. As far as anemia is concerned, hemoglobin stable, will continue to monitor Return to clinic in 3 weeks with CBC CMP, follow-up CT scan of chest abdomen pelvis, bone scan, right leg venous Doppler study, D-dimer Signed By: Sae Davies M.D. <<Signature on File>>
== END 2022-01-16 23:59 | disposition home or self-care (01) ==
LOC: ONCMED 06:40
PROVIDERS: PCP Internal Medicine; Visit Provider Internal Medicine Hematology & Oncology
DX: Z51.12 Encounter for antineoplastic immunotherapy (principal); Z51.11 Encounter for antineoplastic chemotherapy; C61 Malignant neoplasm of prostate; C77.8 Secondary and unspecified malignant neoplasm of lymph nodes of multiple regions; C79.51 Secondary malignant neoplasm of bone; Z79.52 Long term (current) use of systemic steroids; Z79.899 Other long term (current) drug therapy; I82.501 Chronic embolism and thrombosis of unspecified deep veins of right lower extremity; Z79.01 Long term (current) use of anticoagulants
CPT/HCPCS: 80053; 83735; 84153; 85025; 96360; 96367; 96372; 96375; 96377; 96413; 96417; 99215; J0897; J1100; J1200; J1453; J2469; J2506; J3490; J7040; J7050; J9043; J9045

== ENCOUNTER 2022-01-18 08:26 | Outpatient (CLI) | payer MEDICARE, BC, SELFPAY ==
--- NOTE | 2022-01-18 09:08 | CT_ITS ---
WS: [id number] CT CHEST, ABDOMEN AND PELVIS WITH CONTRAST. HISTORY: PROSTATE CANCER TECHNIQUE: Contiguous 5 mm axial imaging performed through the chest, abdomen and pelvis with IV cont rast, oral contrast has been provided. Coronal and sagittal reformats chest. Coronal and sagittal ref ormats through the abdomen and pelvis. All CT scans at [facility] use at least one of these d ose optimization techniques: automated exposure control; mA and/or kV adjustment per patient size (in cludes targeted exams where dose is matched to clinical indication); or iterative reconstruction. CONTRAST: Omnipaque 350; 95 mL IV. DLP: 1192.81 mGy.cm COMPARISON: 12/11/2020 and 09/09/[address]: Subsolid oval 4 mm nodule RIGHT upper lobe has been present on multiple prior examinations. No increase in size. No pulmonary mass or nodule. Subsegmental areas of atelectasis at the lung base s. Heart size is normal. No pericardial or pleural effusion. Mild atherosclerosis aorta. There is a b ovine arch. Normal size pulmonary artery. No adenopathy. RIGHT subclavian Mediport. Sclerotic foci wi thin several of the thoracic vertebral bodies including T1, T4, T5, T6 and T10. There are also severa l sclerotic foci within the ribs. No definite progression since the most recent study. There is sligh t loss of height involving the T4 vertebral body. Abdomen CT: Normal size liver. Normal gallbladder. Normal spleen with granulomata. Normal pancreas. N ormal RIGHT kidney. There is a large cyst in the LEFT kidney measuring 5.3 x 4.6 cm. No obstruction o r mass. Moderate atherosclerotic plaque continues within the abdominal aorta. Progression of a metast atic sclerotic foci within the RIGHT ilium. Sclerotic focus within the RIGHT sacrum is similar to the prior study. Patient has a known fracture involving the RIGHT greater trochanteric with extension in to the proximal femur as described on a prior MRI. This fracture has not been fixated. Sclerosis cons istent with a healing fracture is noted and in the proximal femur extending between the trochanters. Slight decrease in size of the lymph nodes in the distal RIGHT periaortic location with the largest n ow measuring 12 mm. The superior RIGHT sacral lymph node is stable. There is mild haziness and stranding throughout the mesentery and omentum. Pelvic CT: Urinary bladder is well distended. No free fluid or adenopathy. CT/CT chest abd pel w con* IMPRESSION: 1. No metastatic lymph nodes with the chest, abdomen or pelvis. 2. Decrease in size of the RIGHT distal periaortic lymph nodes with the larges t measuring 12 mm as compared to 17 mm on the prior study. There is an addition al superior RIGHT sacral mass measuring 2.4 x 2.3 cm with no change. 3. Progression of bony metastasis in the RIGHT ilium. Metastatic lesions withi n the thoracic spine and sacrum appears stable since 12/11/2020 4. Mild soft tissue thickening of the omentum and mesentery. May be secondary to edema. There early changes of peritoneal carcinomatosis may appear similar. No discrete nodule or mass. 5. Patient has a known RIGHT intertrochanteric fracture with extension into th e proximal femur. No fixation hardware.
--- NOTE | 2022-01-18 09:08 | NM_ITS ---
WS: [id number] NUCLEAR MEDICINE WHOLE BODY BONE SCAN HISTORY: Initial STAGING-PROSTATE CANCER COMPARISON: 12/11/2020 TECHNIQUE: The patient was injected with 25.1 mCi of Technetium 99m HDP and serial whole-body scintig kiana have been performed with anterior and posterior images. New foci of increased uptake throughout the bony skeleton since 12/11/2020. No increased uptake within the T6 vertebral body. Progression of sclerotic foci within the L2 spinous process. Mild increased u ptake within the RIGHT superior sacrum similar to the prior study. Progression of metastatic disease in the superior RIGHT ilium. Very mild heterogeneous appearance to the ribs suspicious for progressio n of disease. Sclerotic focus in the inferior RIGHT scapula is stable. Moderate increased uptake within the RIGHT hip involving the trochanter and intertrochanteric femur. This was described on prior imaging. No fixation hardware. NM/NM bone scan whole body* [id number] IMPRESSION: 1. Mild progression of bony metastasis since 12/11/2020. Most significant progr ession in the superior RIGHT ilium. Additional focal increased uptake within th e T6 vertebral body. 2. Increased uptake at the RIGHT hip and intertrochanteric consistent with a p revious the described fracture.
[2022-01-18] MEDS: iohexol 300 mg/mL 50 mL Btl PO (09:57)
[2022-01-18] MEDS: iohexol 350 mg/mL 100 mL Btl IV (10:43)
--- NOTE | 2022-01-18 10:45 | USCV_ITS ---
Oli Aragon Age: 86 Gender: M : 1935 Exam Date: 01/18/2022 10:21 Ordering Phys: Sae Davies MD Technologist: Remington Avendaño Exam Location: [facility] [place] Indication: PROSTATE CA HISTORY: Patient has history of thrombus in the RT CFV and the Pofunda. Patient is currently on blood thinner. PROCEDURES: Venous duplex imaging was performed in only the right lower extremity. The following venous structures were evaluated: common femoral vein, profunda vein, proximal portion of the greater saphenous vein, superficial femoral vein, and the popliteal vein. In addition, the posterior tibial and peroneal trunk were evaluated. Serial compression, augmentation maneuvers, and spectral Doppler flow evaluation were performed. FINDINGS: Evidence of acute occlusive deep vein thrombosis in the right profunda vein with abnormal flow dynamics. No additional DVT. CONCLUSIONS There is evidence of acute right lower extremity deep venous thrombosis involving the profunda. Dr. Nano Sun DO (Electronically Signed) Final Date: 18 Jan 2022 12:39 S
== END 2022-01-18 08:27 | disposition home or self-care (01) ==
LOC: RAD 08:28
PROVIDERS: PCP Internal Medicine; Visit Provider Internal Medicine Hematology & Oncology
DX: C79.51 Secondary malignant neoplasm of bone (principal); C61 Malignant neoplasm of prostate; C77.5 Secondary and unspecified malignant neoplasm of intrapelvic lymph nodes; I82.890 Acute embolism and thrombosis of other specified veins
CPT/HCPCS: 71260; 74177; 78306; 93971; A9561

== ENCOUNTER 2022-01-26 10:12 | Oncology outpatient (recurring) (ONCR) | payer MEDICARE, BC, SELFPAY ==
[2022-01-26 11:21] LABS: Basophils % 0.4 %; Hemoglobin 9.2 g/dL (11.7-16.6); Lymphocytes # 0.8 10^3/uL (0.8-4.8); Lymphocytes % 8.5 %; Mean Corpuscular HGB Conc 31.7 g/dL (30.0-36.0); Mean Corpuscular Hemoglobin 35.5 pg (28.0-34.0); Mean Platelet Volume 10.2 fL (7.4-10.4); Monocytes # 0.4 10^3/uL (0.2-0.9); Monocytes % 4.6 %; Neutrophils # 7.73 10^3/uL (1.8-7.7); Neutrophils % 85.3 %; Nucleated Red Blood Cells % 0 %; Platelet Count 155 10^3/cmm (130-400); Red Blood Count 2.59 10^6/uL (4.1-5.3); Red Cell Distribution Width 15.8 % (12.1-15.1); White Blood Count 9.1 10^3/uL (4.0-10.0)
[2022-01-26 12:14] LABS: Alanine Aminotransferase 15 U/L (0-41); Albumin Level 3.7 g/dL (3.5-5.2); Alkaline Phosphatase 59 IU/L (40-130); Aspartate Amino Transferase 21 U/L (0-40); Blood Urea Nitrogen 13 mg/dL (8-23); Calcium 8.4 mg/dL (8.5-10.5); Carbon Dioxide 22 mmol/L (22-29); Chloride 105 mmol/L (98-107); Globulin 2.1 g/dL (1.3-4.6); Glucose 94 mg/dL (65-115); Osmolality Calculated 286 mOsm/kg (285-295); Sodium 138 mmol/L (136-145); Total Bilirubin 0.2 mg/dL (0.15-1.2); Total Protein 5.8 g/dL (6.6-8.7)
[2022-01-26 12:19] LABS: Anion Gap 14.5 (5-19); Potassium 3.5 mmol/L (3.5-5.1)
== END 2022-02-16 23:59 | disposition home or self-care (01) ==
PROVIDERS: PCP Internal Medicine; Visit Provider Internal Medicine Hematology & Oncology
DX: C61 Malignant neoplasm of prostate (principal); C79.51 Secondary malignant neoplasm of bone; R97.21 Rising PSA following treatment for malignant neoplasm of prostate; R53.82 Chronic fatigue, unspecified; R59.0 Localized enlarged lymph nodes; I82.401 Acute embolism and thrombosis of unspecified deep veins of right lower extremity; Z79.01 Long term (current) use of anticoagulants; D64.9 Anemia, unspecified; M25.551 Pain in right hip; Z79.899 Other long term (current) drug therapy; Z92.21 Personal history of antineoplastic chemotherapy; Z92.25 Personal history of immunosuppression therapy
CPT/HCPCS: 36591; 80053; 84153; 85025; 85378; 99215; 99999

== ENCOUNTER → 2022-02-16 09:36 | Outpatient (BNVA) | payer MEDICARE, BC, SELFPAY | PROVIDERS: PCP Internal Medicine; Visit Provider Orthopaedic Surgery | DX: S72.001D Fracture of unspecified part of neck of right femur, subsequent encounter for closed fracture with routine healing (principal); X58.XXXD Exposure to other specified factors, subsequent encounter | CPT/HCPCS: 99212 ==

== ENCOUNTER 2022-03-16 11:30 | Oncology outpatient (recurring) (ONCR) | payer MEDICARE, BC, SELFPAY ==
[2022-02-23 12:19] LABS: Basophils % 0.3 %; Eosinophils % 0.6 %; Hematocrit 33.6 % (42.0-52.0); Lymphocytes # 0.9 10^3/uL (0.8-4.8); Lymphocytes % 12.2 %; Mean Corpuscular HGB Conc 32.7 g/dL (30.0-36.0); Mean Corpuscular Hemoglobin 34.7 pg (28.0-34.0); Mean Platelet Volume 9.8 fL (7.4-10.4); Monocytes # 0.3 10^3/uL (0.2-0.9); Monocytes % 4.2 %; Neutrophils # 5.93 10^3/uL (1.8-7.7); Neutrophils % 82.4 %; Nucleated Red Blood Cells % 0 %; Platelet Count 148 10^3/cmm (130-400); Red Blood Count 3.17 10^6/uL (4.1-5.3); Red Cell Distribution Width 12.8 % (12.1-15.1); White Blood Count 7.2 10^3/uL (4.0-10.0)
[2022-02-23 12:45] LABS: Alanine Aminotransferase 16 U/L (0-41); Alkaline Phosphatase 56 IU/L (40-130); Anion Gap 14.1 (5-19); Aspartate Amino Transferase 20 U/L (0-40); Blood Urea Nitrogen 13 mg/dL (8-23); Calcium 8.8 mg/dL (8.5-10.5); Carbon Dioxide 24 mmol/L (22-29); Chloride 104 mmol/L (98-107); Globulin 2.2 g/dL (1.3-4.6); Glucose 103 mg/dL (65-115); Osmolality Calculated 286 mOsm/kg (285-295); Potassium 4.1 mmol/L (3.5-5.1); Sodium 138 mmol/L (136-145); Total Bilirubin 0.4 mg/dL (0.15-1.2); Total Protein 6.2 g/dL (6.6-8.7)
--- NOTE | 2022-02-24 09:25 | N.ONRAD NP_ITS ---
Radiation Oncology Consultation Patient Name: Oli Aragon Date of : 1935 Date of Service: 02/24/2022 Attending Physician: Gatito Mi M.D. Oli Aragon was seen in consultation this morning at the request of Radha aDvies M.D. for consideration of palliative radiotherapy for the management of metastatic prostate cancer. He was initially diagnosed in June 2009 with prostate cancer. The initial PSA was 16.8 ng/mL. A TRUS biopsy diagnosed a prostatic adenocarcinoma with a Stephanie score of 9 (4+5). He was prescribed hormonal therapy followed by pelvic radiotherapy completing in May 2010. 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 Chemotherapy consisting of Zytiga and prednisone were prescribed and stereotactic ablative radiotherapy was performed to the sacral lesion. The PSA continued to rise. A PET scan ordered in October 2019 identified pelvic and thoracic metabolic lymph nodes and enzalutamide was recommended with discontinuation of Zytiga and prednisone. Systemic chemotherapy (Taxotere) and Xgeva were prescribed in October 2020. However, his PSA continued to increase. CT imaging obtained in November 2020 described progression of skeletal metastases within the thoracic spine, ribs, and right ilium. Chemotherapy was changed to Jevtana and prednisone with continuation of ADT and Xgeva. A PET scan ordered in March 2021 reported new sclerotic osseous disease in the right ilium, T1, T5, T10, T11, S1, and right fifth rib. A PSMA PET scan obtained in July 2021 described extensive pelvic lymphadenopathy, multiple foci of spinal metastases, bilateral ribs, sacrum, and right ilium. On account of progressive disease, carboplatin was added to the chemotherapy regimen in September 2021. The patient sustained a fall during the winter. An MRI of the pelvis confirmed non-displaced acute fracture of the right hip extending from the greater trochanter to the proximal femur, two lesions in the right ilium, and a soft tissue mass within the right pelvis contiguous with an S1 metastatic lesion. Orthopedic intervention was not recommended. During a recent medical oncology appointment, he detailed worsening right hip pain. He was evaluated for palliative radiotherapy to the right hip. I discussed with Mr. Aragon the role for palliative radiotherapy. I would recommend an evaluation at an academic center for treatment in the context of prior SABR. The potential toxicities of re-irradiation were reviewed. The patient has verbalized understanding would like to consider referral to a tertiary care facility for possible re-treatment. Her medical treatment plan has been discussed with Radha Davies M.D. Signed by: Dr. Gatito Mi 02/24/2022 9:23:46 AM
[2022-03-16 11:45] VITALS: BMI 21.1
[2022-03-16 11:54] LABS: Basophils % 0.4 %; Eosinophils % 0.6 %; Hematocrit 33.3 % (42.0-52.0); Hemoglobin 11.3 g/dL (11.7-16.6); Lymphocytes # 0.8 10^3/uL (0.8-4.8); Lymphocytes % 11.1 %; Mean Corpuscular HGB Conc 33.9 g/dL (30.0-36.0); Mean Corpuscular Volume 103.1 fl (80-94); Mean Platelet Volume 9.3 fL (7.4-10.4); Monocytes # 0.4 10^3/uL (0.2-0.9); Monocytes % 5.6 %; Neutrophils # 5.56 10^3/uL (1.8-7.7); Neutrophils % 82.2 %; Nucleated Red Blood Cells % 0 %; Platelet Count 155 10^3/cmm (130-400); Red Blood Count 3.23 10^6/uL (4.1-5.3); Red Cell Distribution Width 12.7 % (12.1-15.1); White Blood Count 6.8 10^3/uL (4.0-10.0)
[2022-03-16 12:32] LABS: Alanine Aminotransferase 16 U/L (0-41); Albumin Level 3.8 g/dL (3.5-5.2); Alkaline Phosphatase 62 IU/L (40-130); Anion Gap 14.3 (5-19); Aspartate Amino Transferase 18 U/L (0-40); Blood Urea Nitrogen 12 mg/dL (8-23); Calcium 8.4 mg/dL (8.5-10.5); Carbon Dioxide 24 mmol/L (22-29); Chloride 102 mmol/L (98-107); Globulin 2.1 g/dL (1.3-4.6); Glucose 100 mg/dL (65-115); Osmolality Calculated 282 mOsm/kg (285-295); Potassium 4.3 mmol/L (3.5-5.1); Sodium 136 mmol/L (136-145); Total Bilirubin 0.3 mg/dL (0.15-1.2); Total Protein 5.9 g/dL (6.6-8.7)
[2022-03-16] MEDS: denosumab 120 mg SDV SUBCUT (14:28)
[2022-03-16] MEDS: leuprolide 22.5 mg Kit IM (14:30)
[2022-03-16 14:35] VITALS: BP 134/77; PULSE 63; RESP 18; TEMP 36.2; O2SAT 96
== END 2022-03-18 23:59 | disposition home or self-care (01) ==
PROVIDERS: Internal Medicine Hematology & Oncology; Nurse Practitioner Family; PCP Internal Medicine; Visit Provider Radiology Radiation Oncology
DX: Z51.11 Encounter for antineoplastic chemotherapy (principal); C61 Malignant neoplasm of prostate; C79.51 Secondary malignant neoplasm of bone; I82.401 Acute embolism and thrombosis of unspecified deep veins of right lower extremity; Z79.01 Long term (current) use of anticoagulants; D64.9 Anemia, unspecified
CPT/HCPCS: 36591; 80053; 84153; 85025; 96372; 96402; 99205; 99214; 99215; J0897; J9217

== ENCOUNTER 2022-04-17 13:39 | Inpatient (IN) | payer MEDICARE, BC, SELFPAY ==
[2022-04-17] VITALS (8 sets, daily range): BP systolic 139–158; BP diastolic 79–81; PULSE 61–66; RESP 15–20; TEMP 36.8–36.9; O2SAT 94–96; BMI 21.0; BMI 22.4
--- NOTE | 2022-04-17 14:01 | ED_ITS ---
HPI - Fall General: Chief Complaint: Fall Stated Complaint: RIGHT HIP PAIN S/P FALL Time Seen by Provider: 04/17/22 13:52 History of Present Illness: Mr. Aragon is an 86-year-old gentleman with history of DVT on anticoagulation, history of metastatic prostate cancer who presents to the emergency department due to fall with concern over hip injury. He has a history of metastatic disease to the hip and spine. He due to this he has chronic neuropathy and weakness in the right leg specifically the great toe. He reports getting this caught on something and tripping and falling landing primarily on his right side. He immediately had pain and was unable to get up. Pain is moderate in intensity and worse with movement. Denies new sensory or motor changes distally. No other pain reported. No other specific changes in health, exacerbating, or alleviating factors identified. Onset (ago): minute(s) Fall from: standing Place fall occurred: home Loss of consciousness: None Prolonged down time: no Symptoms prior to fall: none Context: tripped/slipped Severity: moderate Quality: sharp and stabbing Review of Systems General: Reports: 10 or more systems reviewed and unremarkable except in HPI and below PFSH ED PFSH: Medical History Adenocarcinoma of prostate Anemia C. difficile colitis Closed intertrochanteric fracture of right hip DVT (deep venous thrombosis) Fall Frailty syndrome in geriatric patient Malignant neoplasm of prostate Mediastinal adenopathy (Unknown) Mediastinal lymphadenopathy Prostate cancer Secondary malignant neoplasm of bone Surgical History H/O neck surgery History of appendectomy Status post open reduction with internal fixation of fracture Family History Other Cancer Stroke Social History Smoking and tobacco status: former smoker Quit status (tobacco): has quit using tobacco Year quit tobacco: 1970 - 1PPD x 5 Years Second hand smoke exposure: No Alcohol intake: former Lives independently: Yes Household members: spouse Marital status: Current occupational status: retired History of recent travel: No Current gender identity: Male Physical Exam 2 Const: COMMON NORMALS: alert GENERAL APPEARANCE: cooperative and well developed HENMT: COMMON NORMALS: normocephalic and atraumatic HEAD & SCALP: normocephalic and atraumatic THROAT: posterior oropharynx normal OTHER: No sidhu signs or raccoon eyes. No otorrhea or rhinorrhea. Jaw alignment normal. Dentition baseline. No obvious bony step-offs. No septal hematoma. No evidence of ocular entrapment. Eye: COMMON NORMALS: conjunctivae normal CONJUNCTIVA: Yes conjunctivae norm al SCLERA: sclerae normal Neck/C-Spine: COMMON NORMALS: supple GENERAL: Yes trachea midline Resp: COMMON NORMALS: normal respiratory effort and clear to auscultation bilaterally EFFORT & INSPECTION: Yes able to speak in complete sentences AUSCULTATION: clear to auscultation bilaterally Cardio: COMMON NORMALS: regular rate and regular rhythm RATE: regular rate RHYTHM: regular rhythm GI: COMMON NORMALS: Soft to palpation PALPATION: Yes Soft to palpation and No Tenderness to palpation present (GI) PERCUSSION: normal to percussion Extremity: NARRATIVE EXTREMITY EXAM: Right lower extremity held in external rotation. Tenderness palpation in hip region. Distal CMS reported baseline with weakness of movement and sensory, pulses intact. GENERAL: Yes normal exam except as noted and No edema Neuro: COMMON NORMALS: moves all extremities SENSORIUM/ORIENTATION: Yes alert and No Orientation impaired Psych: COMMON NORMALS: mental status grossly normal and Normal thought process present THOUGHT PROCESS: Normal thought process present Skin: NARRATIVE SKIN EXAM: skin tear approx 3 cm x 1 cm RUE, TDAP utd Course ED course: - Patient was seen and evaluated by me at bedside - Patient placed on cardiac monitors, IV access obtained - Initial evaluation notable for exam as above. Head to toe exam performed. - Labs and xrays personally interpreted by me. EKG shows sinus rhythm with right bundle branch block. No STEMI. - Analgesia and muscle relaxer given. - Labs notable for no leukocytosis. Macrocytic anemia. No significant metabolic abnormality. No UTI. - Imaging notable for no acute head or neck injury from trauma. Chest x-ray without lobar consolidation or pneumothorax. Sclerotic lesions discussed. Right hip fracture. Discussed with orthopedics - Upon serial reexamination after treatment the patient was improved with repeat doses of analgesia - Based on patient history, evaluation, and testing as interpreted the most likely cause of the patient's condition is fall with hip fracture with known history of metastatic cancer - The results of ED evaluation were discussed with the patient including plan for admission due to requirement for level of care not available if discharged to prevent significant worsening/deterioration. - Admitting service was contacted and Dr Barnhart with the hospitalist service agreed to admit the patient - Patient was admitted without further deterioration or significant events. Note: Click bubbles or prepopulated sheets in note writing are used for assistance with data collection and billing and are inherently more limited than narrative and other text portions of this note. Please use narrative for additional clinical history and defer to narrative/free test for any case of contradictory information. If information appears in only free text or click bubble it should be considered present or absent as reported. Please contact note senior underwriter for clarifications of clinical information or contradictory information. MDM is a brief summary, contradictory or erroneous seeming information should be clarified and full note should be reviewed. Vital Signs: Vital signs: Vital Signs Temperature 98.2 F 04/21/22 12:00 Pulse Rate 81 04/21/22 16:01 Respiratory Rate 18 04/21/22 13:16 Blood Pressure 100/54 04/21/22 12:00 Pulse Oximetry 95 04/21/22 08:00 Oxygen Delivery Me thod 04/21/22 12:00 Oxygen Flow Rate 3.5 04/21/22 04:00 MDM - Fall Medical Decision Making 86-year-old gentleman with known history of cancer with bone metastases presenting due to trip and fall. Patient found to have right intertrochanteric fracture. Discussed with orthopedics. Admitted for definitive management. Medical Records I reviewed the patient's medical records. Lab Data I reviewed the patient's lab results. : 04/20/22 05:25 04/20/22 05:25 Radiology Impressions Cervical Spine CT 04/17/22 14:06 IMPRESSION: 1. No acute spine fracture-subluxation. 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 No significant central canal stenosis related to osseous elements. 2. T1 vertebral body sclerotic lesion, likely metastatic focus. Left C7 pedicle sclerosis is also present. Chest X-Ray 04/17/22 14:06 IMPRESSION: No acute cardiopulmonary findings. Other osseous findings as above. Head CT 04/17/22 14:06 IMPRESSION: No acute intracranial findings. Foot X-Ray 04/17/22 14:29 IMPRESSION: Tiny calcific density medial base of 1st proximal phalanx as described. No acute findings otherwise. Pelvis CT 04/18/22 13:23 IMPRESSION: 1. Right intertrochanteric hip fracture with mildly displaced osseous fragments and hemarthrosis. 2. Abdominal aortic aneurysm measuring 3.2 cm with aneurysmal dilation of the bilateral common iliac arteries up to 1.7 cm. 3. Similar appearance of osseous metastatic lesions within the right ilium and right sacrum. Femur X-Ray 04/18/22 13:25 IMPRESSION: Mildly displaced right intertrochanteric hip fracture. Hip/Pelvis X-Ray 04/19/22 00:00 IMPRESSION: Images obtained for intraoperative purposes. Laboratory Results WBC 6.2 10^3/uL (4.0-10.0) 04/17/22 15:13 RBC 3.39 10^6/uL (4.1-5.3) L 04/17/22 15:13 Hgb 11.3 g/dL (11.7-16.6) L 04/17/22 15:13 Hct 35.1 % (42.0-52.0) L 04/17/22 15:13 MCV 103.5 fl (80-94) H 04/17/22 15:13 MCH 33.3 pg (28.0-34.0) 04/17/22 15:13 MCHC 32.2 g/dL (30.0-36.0) 04/17/22 15:13 RDW 12.7 % (12.1-15.1) 04/17/22 15:13 Plt Count 163 10^3/cmm (130-400) 04/17/22 15:13 MPV 9.6 fL (7.4-10.4) 04/17/22 15:13 Neut % (Auto) 65.1 % 04/17/22 15:13 Lymph % (Auto) 23.1 % 04/17/22 15:13 [place] % (Auto) 9.1 % 04/17/22 15:13 Eos % (Auto) 1.9 % 04/17/22 15:13 Baso % (Auto) 0.5 % 04/17/22 15:13 Neut # (Auto) 4.06 10^3/uL (1.8-7.7) 04/17/22 15:13 Lymph # (Auto) 1.4 10^3/uL (0.8-4.8) 04/17/22 15:13 [place] # (Auto) 0.6 10^3/uL (0.2-0.9) 04/17/22 15:13 Eos # (Auto) 0.1 10^3/uL (0.0-0.8) 04/17/22 15:13 Baso # (Auto) 0.0 10^3/uL (0.0-0.1) 04/17/22 15:13 Nucleated RBC % (auto) 0 % 04/17/22 15:13 Nucleated RBCs # 0.0 /100WBC 04/17/22 15:13 Sodium 139 mmol/L (136-145) 04/17/22 15:13 Potassium 4.0 mmol/L (3.5-5.1) 04/17/22 15:13 Chloride 104 mmol/L (98-107) 04/17/22 15:13 Carbon Dioxide 24 mmol/L (22-29) 04/17/22 15:13 Anion Gap 15.0 (5-19) 04/17/22 15:13 BUN 19 mg/dL (8-23) 04/17/22 15:13 Creatinine 1.2 mg/dL (0.7-1.2) 04/17/22 15:13 GFR Calculation Not Reportable 04/17/22 15:13 Glucose 94 mg/dL (65-115) 04/17/22 15:13 Calculated Osmolality 290 mOsm/kg (285-295) 04/17/22 15:13 Calcium 8.5 mg/dL (8.5-10.5) 04/17/22 15:13 Iron 62 ug/dL (59-158) 04/17/22 15:13 TIBC 253 mcg/dl 04/17/22 15:13 % Saturation 24.5 % (20-50) 04/17/22 15:13 Unsat Iron Binding 191 ug/dL (112-347) 04/17/22 15:13 Total Bilirubin 0.2 mg/dL (0.15-1.2) 04/17/22 15:13 AST 15 U/L (0-40) 04/17/22 15:13 ALT 14 U/L (0-41) 04/17/22 15:13 Alkaline Phosphatase 66 IU/L (40-130) 04/17/22 15:13 Total Protein 5.5 g/dL (6.6-8.7) L 04/17/22 15:13 Albumin 3.5 g/dL (3.5-5.2) 04/17/22 15:13 Globulin 2.0 g/dL (1.3-4.6) 04/17/22 15:13 Vitamin B12 > 2000 pg/mL (232-1245) H 04/17/22 15:13 Folate 9.1 ng/mL (4.5-32.2) 04/17/22 15:13 Procalcitonin 0.07 ng/mL (0-0.5) 04/17/22 15:13 TSH 3.36 uIU/mL (0.27-4.20) 04/17/22 15:13 Discharge Plan Discharge Patient Disposition: Admitted As Inpatient Admit Provider: Dawson Barnhart Clinical Impression: Closed intertrochanteric fracture of right hip, Fall Condition: Stable Discharge Diet: Advance as tolerated Discharge Activity: Limit activity as instructed Coding Level of Care Code ED Spinning Frame Changer for Ike Fwd Exam Comprehensive
--- NOTE | 2022-04-17 14:06 | XRR_ITS ---
PROCEDURE INFORMATION: Exam: XR Chest Exam date and time: 04/17/2022 3:39 PM Age: 86 years old Clinical indication: Injury or trauma; Fall; Blunt trauma (contusions or hematomas); Patient HX: HX of prostate CA w mets fell C/O R chest pain TECHNIQUE: Imaging protocol: Radiologic exam of the chest. Views: 1 view. COMPARISON: CT chest abd pel w con* 01/18/2022 10:42 AM COMPARISON MORE: CR XR ribs LT mn 3V w CXR1V [id number] 06/11/2021 10:08 AM FINDINGS: Tubes, catheters and devices: Right chest wall infusion port with catheter tip in the lower SVC. Lungs: No consolidation. Pleural spaces: Unremarkable. No pleural effusion. No pneumothorax. Heart/Mediastinum: No cardiomegaly. Bones/joints: No acute findings. Sclerotic focus in the lateral left mid thorax likely corresponding to the old healed rib fracture. Incidentally noted is sclerotic focus at T1. Please refer to cervical spine CT exam report. XR/XR chest 1V portable [id number] IMPRESSION: No acute cardiopulmonary findings. Other osseous findings as above.
--- NOTE | 2022-04-17 14:06 | CTR_ITS ---
PROCEDURE INFORMATION: Exam: CT Head Without Contrast Exam date and time: 04/17/2022 2:50 PM Age: 86 years old Clinical indication: Injury or trauma; Fall; Blunt trauma (contusions or hematomas); Without loss of consciousness; Additional info: Fall on blood thinners TECHNIQUE: Imaging protocol: Computed tomography of the head without contrast. Radiation optimization: All CT scans at this facility use at least one of these dose optimization techniques: automated exposure control; mA and/or kV adjustment per patient size (includes targeted exams where dose is matched to clinical indication); or iterative reconstruction. COMPARISON: CT head wo con* [id number] 06/11/2021 10:15 AM RADIATION DOSE METRICS: Total DLP (mGy-cm): 1083.18 FINDINGS: Brain: Mild hypodense changes are noted in the bilateral periventricular regions, likely related to chronic microvascular ischemic disease. There is mild brain parenchymal atrophy. No acute intracranial hemorrhage, mass effect or midline shift. Cerebral ventricles: No pathologic ventricular dilatation. Paranasal sinuses: Mild ethmoid sinus mucosal thickening similar to prior exam. No air-fluid level. Mastoid air cells: Visualized mastoid air cells are well aerated. Bones/joints: Unremarkable. No acute fracture. Soft tissues: Unremarkable. CT/CT head wo con* [id number] IMPRESSION: No acute intracranial findings.
--- NOTE | 2022-04-17 14:06 | ECG_ITS ---
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 Measurements Intervals [place] Rate: 65 P: 55 VT: 174 QRS: -85 QRSD: 144 T: 29 QT: 440 QTc: 459 Interpretive Statements SINUS RHYTHM RIGHT BUNDLE BRANCH BLOCK [120+ ms QRS DURATION, UPRIGHT V1, 40+ ms S IN I/aVL/V4/V5/V6] LEFT ANTERIOR FASCICULAR BLOCK [QRS AXIS <= -45, QR IN I, RS IN II] POSSIBLE SEPTAL MYOCARDIAL INFARCTION , PROBABLY OLD [30 ms Q WAVE IN V1/V2] Compared to ECG 09/09/2021 18:15:20 No significant changes Electronically Signed On 04-18-2022 10:37:49 CDT by Macario Vazquez M.D. [email or web address]
--- NOTE | 2022-04-17 14:06 | CTR_ITS ---
PROCEDURE INFORMATION: Exam: CT Cervical Spine Without Contrast Exam date and time: 04/17/2022 2:53 PM Age: 86 years old Clinical indication: Injury or trauma; Fall; Blunt trauma; Additional info: Fall on blood thinners TECHNIQUE: Imaging protocol: Computed tomography of the cervical spine without contrast. Radiation optimization: All CT scans at this facility use at least one of these dose optimization techniques: automated exposure control; mA and/or kV adjustment per patient size (includes targeted exams where dose is matched to clinical indication); or iterative reconstruction. COMPARISON: MO bone scan whole body* [id number] 01/18/2022 9:08 AM RADIATION DOSE METRICS: Total DLP (mGy-cm): 161.87 FINDINGS: Tubes, catheters and devices: Anterior surgical fusion hardware at C5-C6 and intervertebral disc spacer in good alignment with regional osseous bridging. Bones/joints: There is a sclerotic lesion at T1 vertebral body measuring 12 x 11 mm nonspecific but may represent metastatic lesion from prostate cancer. Increased uptake on bone scan was noted on previous bone scan exam. There is also mild sclerosis of left C7 pedicle. Incidentally noted is chronic moderate-severe bilateral TMJ arthrosis. Multilevel endplate/uncovertebral osteophytes and facet arthropathy are noted. No acute spine fracture or subluxation. C2-C3: No significant disc protrusion. No severe spinal canal stenosis. No significant neural foraminal narrowing. C3-C4: No significant disc protrusion. No severe spinal canal stenosis. Mild to moderate left neural foraminal narrowing. C4-C5: No significant disc protrusion. No severe spinal canal stenosis. No significant neural foraminal narrowing. C5-C6: Surgical fusion. No severe spinal canal stenosis. Severe right neural foraminal narrowing. C6-C7: Moderate disc space loss. No significant disc protrusion. No severe spinal canal stenosis. [id number] bilateral neural foraminal narrowing. C7-T1: No significant disc protrusion. No severe spinal canal stenosis. No significant neural foraminal narrowing. Lungs: Lung apices are normal. Soft tissues: Unremarkable. CT/CT cervical spin wo con* [id number] IMPRESSION: 1. No acute spine fracture-subluxation. 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 No significant central canal stenosis related to osseous elements. 2. T1 vertebral body sclerotic lesion, likely metastatic focus. Left C7 pedicle sclerosis is also present.
--- NOTE | 2022-04-17 14:06 | XRR_ITS ---
PROCEDURE INFORMATION: Exam: XR Right Hip Exam date and time: 04/17/2022 3:47 PM Age: 86 years old Clinical indication: Injury or trauma; Blunt trauma (contusions or hematomas); Right; Patient HX: HX of prostate CA w mets fall this am C/O R hip pain; Additional info: Fall, R hip pain TECHNIQUE: Imaging protocol: Radiologic exam of the Right hip. Views: 1 view hip with pelvis when performed. COMPARISON: CT chest abd pel w con* 01/18/2022 10:42 AM FINDINGS: Bones/joints: There is a oblique fracture in the proximal right femur at the base of femoral neck, mostly in the basicervical/inter trochanteric. There is probable involvement of the greater and lesser trochanteric regions with slight displacement and no significant angulation. No dislocation. Well maintained hip joint spaces on this non weight-bearing exam. Small osteophytes and mild chronic enthesophyte formation. Probable mild osteopenia. Soft tissues: Unremarkable. Other findings: Three views submitted. XR/XR hip RT 2-3V wo/w pel* [id number] IMPRESSION: Proximal femoral fracture on the right as described above.
[2022-04-17] MEDS: fentaNYL 50 mcg/mL INJ 2mL IVP ×4 (14:24→17:11)
--- NOTE | 2022-04-17 14:29 | XRR_ITS ---
PROCEDURE INFORMATION: Exam: XR Right Foot Exam date and time: 04/17/2022 3:41 PM Age: 86 years old Clinical indication: Injury or trauma; Blunt trauma; Right; Patient HX: HX of prostate CA w mets - trip and fall C/O R foot pain TECHNIQUE: Imaging protocol: Radiologic exam of the Right foot. Views: 3 or more views. COMPARISON: [place] bone scan whole body* [id number] 01/18/2022 9:08 AM FINDINGS: Bones/joints: Hallux valgus is present. Type 2 accessory navicula measuring 14 mm. Small plantar calcaneal spur. No obvious sclerotic lesion. Tiny calcific density at the medial base of 1st proximal phalanx appear well corticated which may represent avulsion fragment, possibly chronic however clinical correlation is needed. Otherwise no acute fracture or dislocation. Soft tissues: Normal. Other findings: Three nonweightbearing views submitted. XR/XR foot RT min 3V* [id number] IMPRESSION: Tiny calcific density medial base of 1st proximal phalanx as described. No acute findings otherwise.
[2022-04-17] MEDS: diazePAM 2 mg Tablet PO (15:32)
[2022-04-17 16:06] LABS: Basophils % 0.5 %; Eosinophils # 0.1 10^3/uL (0.0-0.8); Eosinophils % 1.9 %; Hematocrit 35.1 % (42.0-52.0); Hemoglobin 11.3 g/dL (11.7-16.6); Lymphocytes # 1.4 10^3/uL (0.8-4.8); Lymphocytes % 23.1 %; Mean Corpuscular HGB Conc 32.2 g/dL (30.0-36.0); Mean Corpuscular Hemoglobin 33.3 pg (28.0-34.0); Mean Corpuscular Volume 103.5 fl (80-94); Mean Platelet Volume 9.6 fL (7.4-10.4); Monocytes # 0.6 10^3/uL (0.2-0.9); Monocytes % 9.1 %; Neutrophils # 4.06 10^3/uL (1.8-7.7); Neutrophils % 65.1 %; Nucleated Red Blood Cells % 0 %; Platelet Count 163 10^3/cmm (130-400); Red Blood Count 3.39 10^6/uL (4.1-5.3); Red Cell Distribution Width 12.7 % (12.1-15.1); White Blood Count 6.2 10^3/uL (4.0-10.0)
[2022-04-17 16:27] LABS: Alanine Aminotransferase 14 U/L (0-41); Albumin Level 3.5 g/dL (3.5-5.2); Alkaline Phosphatase 66 IU/L (40-130); Aspartate Amino Transferase 15 U/L (0-40); Blood Urea Nitrogen 19 mg/dL (8-23); Calcium 8.5 mg/dL (8.5-10.5); Carbon Dioxide 24 mmol/L (22-29); Chloride 104 mmol/L (98-107); Glucose 94 mg/dL (65-115); Osmolality Calculated 290 mOsm/kg (285-295); Sodium 139 mmol/L (136-145); Total Bilirubin 0.2 mg/dL (0.15-1.2); Total Protein 5.5 g/dL (6.6-8.7)
--- NOTE | 2022-04-17 17:04 | PM.HP ---
Providers/Chief Complaint Admitting Physician: Dawson Barnhart MD Primary Care Provider: Anatoly Ochoa MD Chief Complaint: RIGHT HIP PAIN S/P FALL History of Present Illness Oli Aragon is a 86 year old male with past medical history of prostate cancer, right leg DVT, atrial fibrillation on chronic anticoagulation with Eliquis presents to the ER today after having what sounds like a mechanical fall. Patient has a history of chronic neuropathy and weakness of the right leg specifically the great toe. He reports food getting caught in something in him tripping and landing on right side after which he had pain on the right side on moving. In the ER found to have right-sided hip fracture Review of Systems General: Reports: 10 or more systems reviewed and unremarkable except in HPI and below Const: Denies: fever(s), chills, body aches, change in appetite, change in weight, malaise, night sweats, diaphoresis, change in sleep pattern, daytime sleepiness or snoring Eyes: Denies: change in vision, blurry vision, photophobia, eye discomfort or eye discharge ENMT: Denies: throat pain, enlarged tonsils, hoarseness, mouth pain, oral sores, dry mouth, tinnitus, nasal congestion or post nasal drip Card: Denies: chest pain, palpitations, irregular heart rhythm, edema, swelling of feet/ankles, lightheadedness, syncope, pre-syncope, dyspnea on exertion, orthopnea, leg pain with exertion or acrocyanosis Resp: Denies: dyspnea, productive cough, non-productive cough, wheezing, stridor, pain on inspiration, change in phlegm color, hemoptysis or chest congestion GI: Denies: abdominal pain, nausea, vomiting, hematemesis, coffee ground emesis, dysphagia, heartburn, diarrhea, constipation, bloating, GI cramping, change in bowel habits, pain on defecation, hematochezia or melena : Denies: flank pain, difficulty urinating, dysuria, urinary frequency, urinary urgency, urinary hesitancy, urinary dribbling, difficulty starting urination, change in urine stream, nocturia or hematuria Musc: Denies: neck pain, back pain, extremity pain, joint pain, joint swelling, joint redness, joint stiffness or limited range of motion Neuro: Denies: headache(s), numbness in extremities, weakness in extremities, sensory changes, lack of coordination, difficulty walking, frequent falls, dizziness, vertigo, confusion, Slurred speech present, difficulty communicating thoughts or seizure-like activity Psych: Denies: anxiety, depression, mood swings, panic attacks, hopelessness or irritability Endo: Denies: polyuria, polydipsia, tired all the time, cold intolerance, excessive sweating, flushing or heat intolerance Tristin/Lymph: Denies: easy bruising or easy bleeding All/Imm: Denies: tongue swelling, facial swelling or acute wheezing Medications/Allergies Home Medications Medication Instructions Recorded Confirmed Last Taken Type prednisone 10 mg tablet 10 mg PO QAM 06/11/21 04/17/22 04/17/22 History cyanocobalamin (vitamin B-12) 500 500 mcg PO DAILY ##0 09/09/21 04/17/22 04/17/22 History mcg tablet (Vitamin B-12) apixaban 2.5 mg tablet (Eliquis) 2.5 mg PO BID #180 tabs 10/09/21 04/17/22 04/17/22 Rx ibuprofen 200 mg capsule 600 mg PO Q6H PRN Pain 01/26/22 04/17/22 01/26/22 09:00 History multivitamin 1 tab PO QAM 02/23/22 04/17/22 04/17/22 History tamsulosin 0.4 mg capsule 0.4 mg PO DAILY #30 caps 02/23/22 04/17/22 04/17/22 Rx lansoprazole 30 mg capsule,delayed 30 mg PO DAILY 04/17/22 04/17/22 04/17/22 History release Allergies Allergy/AdvReac Type Severity Reaction Status Date / Time No Known Allergies Allergy Verified 04/13/22 09:19 PFSH Acute PFSH: Medical History (Updated 04/17/22 @ 17:07 by Dawson Barnhart MD) Adenocarcinoma of prostate Anemia C. difficile colitis DVT (deep venous thrombosis) Frailty syndrome in geriatric patient Mediastinal adenopathy (Unknown) Mediastinal lymphadenopathy Prostate cancer Secondary malignant neoplasm of bone Surgical History H/O neck surgery History of appendectomy Family History Other Cancer Stroke Social History Smoking and tobacco status: former smoker Quit status (tobacco): has quit using tobacco Year quit tobacco: 1970 - 1PPD x 5 Years Second hand smoke exposure: No Alcohol intake: former Lives independently: Yes Household members: spouse Marital status: Current occupational status: retired History of recent travel: No Current gender identity: Male Vitals/I&O/Wt Last Vital Signs Temp 98.2 F 04/17/22 14:04 Pulse 61 04/17/22 14:04 Resp 16 04/17/22 16:06 BP 139/79 04/17/22 14:04 Pulse Ox 94 04/17/22 14:04 O2 Del Method 04/17/22 14:04 Weight last 48 hrs Weight 78.471 kg Physical Exam Narrative: General: Mild acute distress because of leg pain, AO x3, on room air, pallor present HEENT: PERRLA, pupils bilaterally equal and reactive Chest: Bilateral normal vesicular breath sounds CVS: S1-S2 regular, no murmurs, no tachycardia, no gallops, no rubs Abdomen: Soft, nontender, no organomegaly, bowel sounds present, morbidly obese Neuro: No focal deficits, no facial deformity, AO x3, power 5/5 in all limbs Extremities: Right leg externally rotated, pulses bilaterally equal Data : 04/18/22 03:45 04/18/22 03:45 A&P Assessment and plan (1) Closed intertrochanteric fracture of right hip: Orthopedics has been consulted from the ER. Most likely plan for ORIF. Pain control, monitor hemoglobin postoperatively.. Physical therapy postop. Last dose of Eliquis today morning. Status: Acute (2) Fall: Sound mechanical Status: Acute (3) Anemia: Check iron panel, vitamin B12, folate level. Hemoglobin at baseline. We will continue to monitor. Status: Acute (4) Malignant neoplasm of prostate: Status: Acute (5) Secondary malignant neoplasm of bone: Status: Acute Plan Analgesia: Morphine 1 mg every 4 hours as needed, Tylenol 6 hours as needed Glycemic control: Not needed. Check A1c Nutrition: Cardiac diet CODE STATUS: Full code PUD prophylaxis: Protonix DVT prophylaxis: SCDs, medical prophylaxis contraindicated as patient will need to go to the OR for ORIF Discharge planning: Home health versus SNF depending on how he does postoperatively with physical therapy. Admit to [facility] with telemetry. This documentation was created by [employer] orthopedic podiatrist software. Every effort was made to ensure accuracy of orthopedic podiatrist. Any obvious errors or omissions should be clarified with the author of the document. Attestations Medical Necessity Statement*: Admission for more than 2 midnights for management of right hip fracture Time Spent in Patient Care: Greater than 35 minutes Coding Level of Care Code Acute [employer] Worker for [facility] Fwd Diagnoses Closed intertrochanteric fracture of right hip S72.141A Fall W19.XXXA Anemia D64.9 Malignant neoplasm of prostate C61 Secondary malignant neoplasm of bone C79.51
--- NOTE | 2022-04-17 17:11 | PC.ADMIT ---
[address] Admission Note: The patient,Oli Aragon,86 y/o, was given written information regarding hospital policies, unit procedures and contact persons. Patient's smoking status: former smoker. Vital Signs - 8 hr 04/17/22 14:04 04/17/22 14:24 04/17/22 16:06 Temperature 98.2 F Pulse Rate 61 Respiratory Rate 18 16 16 Blood Pressure 139/79 Pulse Oximetry 94 Oxygen Delivery Method Room Air [id number]
[2022-04-17] MEDS: morphine 4 mg/mL SDV 1 mL IVP (18:19)
[2022-04-17 19:22] LABS: Iron 62 ug/dL (59-158); Percent Saturation 24.5 % (20-50); Total Iron Binding Capacity 253 mcg/dl; Unsaturated Iron Binding 191 ug/dL (112-347)
[2022-04-17 19:30] LABS: Thyroid Stimulating Hormone 3.36 uIU/mL (0.27-4.20)
[2022-04-17 19:37] LABS: Procalcitonin 0.07 ng/mL (0-0.5)
[2022-04-17 19:38] LABS: Folate Level 9.1 ng/mL (4.5-32.2)
--- NOTE | 2022-04-17 19:46 | PC.NURSE ---
Called and spoke with regarding patient with right hip fracture but no orders for PRN pain medication. ordered PRN Morphine for pain control.
[2022-04-17 19:56] LABS: Add Urine Microscopic? NO; Charge for UA Resulting for Rev
[2022-04-17] MEDS: acetaminophen 500 mg Tablet 1000 MG PO (20:14)
[2022-04-17] MEDS: ferrous gluconate 324 mg Tablet PO (20:14)
[2022-04-17] MEDS: docusate sodium 100 mg Capsule PO (20:15)
[2022-04-17] MEDS: sodium chloride 0.9% 1,000 ML 50 ML IV (20:15)
[2022-04-17 20:28] LABS: Vitamin B12 > 2000 pg/mL (232-1245)
[2022-04-17 20:28] LABS: Bilirubin Urine Neg (Negative); Blood Urine Neg (Negative); Glucose Urine UA Norm (Normal); Ketones Urine Negative (Negative); Leukocyte Esterase Urine Negative (Negative); Nitrate Urine Negative (Negative); Protein Urine Neg (Negative); Specific Gravity, Urine 1.015 (1.005-1.030); Urine Appearance Clear (CLEAR); Urine Color Yellow (Yellow); Urobilinogen Urine Neg (Negative); pH Urine 5 (5-7)
[2022-04-17] MEDS: morphine 4 mg/mL SDV 1 mL 2 MG IVP (22:03)
[2022-04-18] VITALS (14 sets, daily range): BP systolic 128–152; BP diastolic 74–82; PULSE 64–76; RESP 12–20; TEMP 36.7–37.4; O2SAT 92–95; BMI 22.4
[2022-04-18] MEDS: morphine 4 mg/mL SDV 1 mL 2 MG IVP ×6 (02:06→20:54)
[2022-04-18] MEDS: ondansetron 2 mg/ML SDV 2 mL 4 MG IVP (02:10)
[2022-04-18 04:23] LABS: Basophils % 0.4 %; Eosinophils # 0.1 10^3/uL (0.0-0.8); Eosinophils % 1.8 %; Hematocrit 32.4 % (42.0-52.0); Hemoglobin 10.5 g/dL (11.7-16.6); Lymphocytes # 0.9 10^3/uL (0.8-4.8); Lymphocytes % 16.2 %; Mean Corpuscular HGB Conc 32.4 g/dL (30.0-36.0); Mean Corpuscular Hemoglobin 33.5 pg (28.0-34.0); Mean Corpuscular Volume 103.5 fl (80-94); Monocytes # 0.6 10^3/uL (0.2-0.9); Monocytes % 11.4 %; Neutrophils # 3.93 10^3/uL (1.8-7.7); Neutrophils % 69.8 %; Nucleated Red Blood Cells % 0 %; Platelet Count 155 10^3/cmm (130-400); Red Blood Count 3.13 10^6/uL (4.1-5.3); Red Cell Distribution Width 12.9 % (12.1-15.1); White Blood Count 5.6 10^3/uL (4.0-10.0)
[2022-04-18 04:56] LABS: Alanine Aminotransferase 12 U/L (0-41); Albumin Level 3.6 g/dL (3.5-5.2); Alkaline Phosphatase 62 IU/L (40-130); Anion Gap 13.1 (5-19); Aspartate Amino Transferase 13 U/L (0-40); Blood Urea Nitrogen 17 mg/dL (8-23); Calcium 8.1 mg/dL (8.5-10.5); Carbon Dioxide 24 mmol/L (22-29); Chloride 105 mmol/L (98-107); Chol HDL Ratio 2.94 mg/dL (1.0-5.00); Cholesterol 150 mg/dL (0-200); Globulin 1.7 g/dL (1.3-4.6); Glucose 93 mg/dL (65-115); HDL Cholesterol 51 mg/dL (60-100); LDL Cholesterol Calculated 80 mg/dL (50-129); Magnesium 1.5 mg/dL (1.7-2.3); Osmolality Calculated 287 mOsm/kg (285-295); Phosphorus 3.7 mg/dL (2.5-4.5); Potassium 4.1 mmol/L (3.5-5.1); Sodium 138 mmol/L (136-145); Total Bilirubin 0.3 mg/dL (0.15-1.2); Total Protein 5.3 g/dL (6.6-8.7); Triglycerides 97 mg/dL (0-150); VLDL Cholestrol Calculation 19 mg/dL (0-30)
[2022-04-18 05:22] LABS: Estmated Average Glucose 97
[2022-04-18] MEDS: predniSONE 10 mg Tablet PO (06:36)
[2022-04-18] MEDS: ketorolac 30 mg/mL INJ 15 MG IVP (06:45)
[2022-04-18] MEDS: pantoprazole DR 40 mg Tablet PO (10:02)
[2022-04-18] MEDS: ferrous gluconate 324 mg Tablet PO ×2 (10:03→17:41)
[2022-04-18] MEDS: tamsulosin 0.4 mg Capsule PO (10:03)
[2022-04-18] MEDS: docusate sodium 100 mg Capsule PO ×2 (10:03→17:41)
--- NOTE | 2022-04-18 13:23 | CTR_ITS ---
PROCEDURE INFORMATION: Exam: CT Pelvis Without Contrast; Skeletal Exam date and time: 04/18/2022 2:01 PM Age: 86 years old Clinical indication: Injury or trauma; Fall; Fracture of pelvis & hip; Right; Traumatic fracture; Neck of femur, base; Displaced; Patient HX: HX of prostate CA fell yesterday R hip FX TECHNIQUE: Imaging protocol: Computed tomography of the pelvis without contrast. Exam focused on the skeleton. Radiation optimization: All CT scans at this facility use at least one of these dose optimization techniques: automated exposure control; mA and/or kV adjustment per patient size (includes targeted exams where dose is matched to clinical indication); or iterative reconstruction. COMPARISON: CT chest abd pel w con* 01/18/2022 10:42 AM RADIATION DOSE METRICS: Total DLP (mGy-cm): 378.61 FINDINGS: Vasculature: Infrarenal abdominal aortic aneurysm measuring up to 3.2 cm in size. Aneurysmal dilation of the common iliac arteries bilaterally up to 1.7 cm. Bones/joints: Comminuted right intertrochanteric hip fracture with several mildly displaced fragments and hemarthrosis. Similar appearance of osseous sclerotic metastatic lesions in the right iliac crest and right sacrum. Soft tissues: Unremarkable. CT/CT bony pelvis [id number] IMPRESSION: 1. Right intertrochanteric hip fracture with mildly displaced osseous fragments and hemarthrosis. 2. Abdominal aortic aneurysm measuring 3.2 cm with aneurysmal dilation of the bilateral common iliac arteries up to 1.7 cm. 3. Similar appearance of osseous metastatic lesions within the right ilium and right sacrum.
--- NOTE | 2022-04-18 13:25 | XRR_ITS ---
PROCEDURE INFORMATION: Exam: XR Right Femur Exam date and time: 04/18/2022 2:03 PM Age: 86 years old Clinical indication: Injury or trauma; Fall; Fracture, traumatic; Displaced; Right; Patient HX: HX of prostate CA fell yesterday R hip FX; Additional info: Right hip fracture, x-ray to include the knee TECHNIQUE: Imaging protocol: Radiologic exam of the Right femur. Views: 1 view. COMPARISON: NM bone scan whole body* [id number] 01/18/2022 9:08 AM FINDINGS: Bones/joints: Mildly displaced right intertrochanteric hip fracture. Soft tissues: Soft tissue swelling lateral to the right hip. XR/XR femur RT 1V [id number] IMPRESSION: Mildly displaced right intertrochanteric hip fracture.
--- NOTE | 2022-04-18 13:26 | PM.CONSULT ---
Providers/Reason For Consult Consulting Physician/Specialty*: hospitalist Reason for Consult*: hip fracture Attending Physician: Dawson Barnhart MD Primary Care Provider: Anatoly Ochoa MD History of Present Illness History of Present Illness Oli Aragon is a 86 year old male Review of Systems General: Reports: 10 or more systems reviewed and unremarkable except in HPI and below Const: Denies: fever(s), chills, body aches, change in appetite, change in weight, malaise, night sweats, diaphoresis, change in sleep pattern, daytime sleepiness or snoring Eyes: Denies: change in vision, blurry vision, photophobia, eye discomfort or eye discharge ENMT: Denies: throat pain, enlarged tonsils, hoarseness, mouth pain, oral sores, dry mouth, tinnitus, nasal congestion or post nasal drip Card: Denies: chest pain, palpitations, irregular heart rhythm, edema, swelling of feet/ankles, lightheadedness, syncope, pre-syncope, dyspnea on exertion, orthopnea, leg pain with exertion or acrocyanosis Resp: Denies: dyspnea, productive cough, non-productive cough, wheezing, stridor, pain on inspiration, change in phlegm color, hemoptysis or chest congestion GI: Denies: abdominal pain, nausea, vomiting, hematemesis, coffee ground emesis, dysphagia, heartburn, diarrhea, constipation, bloating, GI cramping, change in bowel habits, pain on defecation, hematochezia or melena : Denies: flank pain, difficulty urinating, dysuria, urinary frequency, urinary urgency, urinary hesitancy, urinary dribbling, difficulty starting urination, change in urine stream, nocturia or hematuria Musc: Denies: neck pain, back pain, extremity pain, joint pain, joint swelling, joint redness, joint stiffness or limited range of motion Neuro: Denies: headache(s), numbness in extremities, weakness in extremities, sensory changes, lack of coordination, difficulty walking, frequent falls, dizziness, vertigo, confusion, Slurred speech present, difficulty communicating thoughts or seizure-like activity Psych: Denies: anxiety, depression, mood swings, panic attacks, hopelessness or irritability Endo: Denies: polyuria, polydipsia, tired all the time, cold intolerance, excessive sweating, flushing or heat intolerance Tristin/Lymph: Denies: easy bruising or easy bleeding All/Imm: Denies: tongue swelling, facial swelling or acute wheezing Medications/Allergies Home Medications Medication Instructions Recorded Confirmed Last Taken Type prednisone 10 mg tablet 10 mg PO QAM 06/11/21 04/17/22 04/17/22 History cyanocobalamin (vitamin B-12) 500 500 mcg PO DAILY ##0 09/09/21 04/17/22 04/17/22 History mcg tablet (Vitamin B-12) apixaban 2.5 mg tablet (Eliquis) 2.5 mg PO BID #180 tabs 10/09/21 04/17/22 04/17/22 Rx ibuprofen 200 mg capsule 600 mg PO Q6H PRN Pain 01/26/22 04/17/22 01/26/22 09:00 History multivitamin 1 tab PO QAM 02/23/22 04/17/22 04/17/22 History tamsulosin 0.4 mg capsule 0.4 mg PO DAILY #30 caps 02/23/22 04/17/22 04/17/22 Rx lansoprazole 30 mg capsule,delayed 30 mg PO DAILY 04/17/22 04/17/22 04/17/22 History release Allergies Allergy/AdvReac Type Severity Reaction Status Date / Time No Known Allergies Allergy Verified 04/13/22 09:19 Current Medications Generic Name Dose Route Start Last Admin Trade Name Freq PRN Reason Stop Dose Admin Docusate Sodium 100 mg 04/17/22 18:48 04/18/22 10:03 Docusate Sodium 100 Mg Capsule PO 100 mg BID [place] Administration Ferrous Gluconate 324 mg 04/17/22 18:48 04/18/22 10:03 Ferrous Gluconate 324 Mg Tablet PO 324 mg BIDWM [place] Administration Sodium Chloride 1,000 mls @ 50 mls/hr 04/17/22 18:48 04/17/22 20:15 Sodium Chloride 0.9% IV 04/18/22 14:47 50 mls/hr .Q20H [place] Administration Morphine Sulfate 2 mg 04/17/22 19:46 04/18/22 10:00 Morphine 4 Mg/Ml Sdv 1 Ml IVP 2 mg Q4H PRN Administration SEVERE PAIN Ondansetron HCl 4 mg 04/17/22 18:48 04/18/22 02:10 Ondansetron 2 Mg/Ml Sdv 2 Ml IVP 4 mg Q8H PRN Administration vomiting, or N/V if npo Pantoprazole Sodium 40 mg 04/18/22 09:00 04/18/22 10:[address] 40 Mg Tablet PO 40 mg DAILY [place] Administration Prednisone 10 mg 04/18/22 06:00 04/18/22 06:36 Prednisone 10 Mg Tablet PO 10 mg QAM [place] Administration Tamsulosin HCl 0.4 mg 04/18/22 09:00 04/18/22 10:03 Tamsulosin 0.4 Mg Capsule PO 0.4 mg DAILY [place] Administration PFSH Acute PFSH: Medical History (Updated 04/17/22 @ 17:07 by Dawson Barnhart MD) Adenocarcinoma of prostate Anemia C. difficile colitis DVT (deep venous thrombosis) Frailty syndrome in geriatric patient Mediastinal adenopathy (Unknown) Mediastinal lymphadenopathy Prostate cancer Secondary malignant neoplasm of bone Surgical History H/O neck surgery History of appendectomy Family History Other Cancer Stroke Social History Smoking and tobacco status: former smoker Quit status (tobacco): has quit using tobacco Year quit tobacco: 1970 - 1PPD x 5 Years Second hand smoke exposure: No Alcohol intake: former Lives independently: Yes Household members: spouse Marital status: Current occupational status: retired History of recent travel: No Current gender identity: Male Vitals/I&O/Wt Last Vital Signs Temp 98.1 F 04/18/22 11:44 Pulse 74 04/18/22 11:44 Resp 18 04/18/22 11:44 BP 137/75 04/18/22 11:44 Pulse Ox 95 04/18/22 11:44 O2 Del Method 04/18/22 11:44 04/17/22 04/18/22 04/18/22 22:59 06:59 14:59 Intake Total 240 / 240 200 / 440 240 / 240 Output Total 520 / 520 Balance 240 / 240 -320 / -80 240 / 240 Weight last 48 hrs Weight 184 lb 6 oz Weight 184 lb 6 oz Weight 173 lb Physical Exam Narrative: General: Mild acute distress because of leg pain, AO x3, on room air, pallor present HEENT: PERRLA, pupils bilaterally equal and reactive Chest: Bilateral normal vesicular breath sounds CVS: S1-S2 regular, no murmurs, no tachycardia, no gallops, no rubs Abdomen: Soft, nontender, no organomegaly, bowel sounds present, morbidly obese Neuro: No focal deficits, no facial deformity, AO x3, power 5/5 in all limbs Extremities: Right leg externally rotated, pulses bilaterally equal Data : 04/18/22 03:45 04/18/22 03:45 A&P Assessment and plan (1) Closed intertrochanteric fracture of right hip: On x-ray fracture appears to go into the femoral neck. However I would like to get a CT scan to confirm this. This will determine the treatment. Would also like to get a CT scan of the pelvis with history of prostate cancer to see if this is gotten any worse. In order also like to get a full-length femur x-ray to ensure that there is no other metastatic lesions in the distal aspect of the femur prior to placing nail. Plan will be to do surgery tomorrow pending review of the CT scans and x-rays. Status: Acute Consult Attestations Medical Necessity Statement: Pain control Coding Level of Care Code Acute Academic Coordinator for [facility] Diagnoses Closed intertrochanteric fracture of right hip S72.141A
--- NOTE | 2022-04-18 13:27 | P.PN_ITS ---
Subjective Subjective: No complaints overnight. Still not seen by orthopedic team. States feeling better. Denies any nausea vomiting, headache. States pain is better controlled. Family at bedside. Vitals/I&O/Wt Last Vital Signs Temp 98.1 F 04/18/22 11:44 Pulse 74 04/18/22 11:44 Resp 18 04/18/22 11:44 BP 137/75 04/18/22 11:44 Pulse Ox 95 04/18/22 11:44 O2 Del Method 04/18/22 11:44 04/17/22 04/18/22 04/18/22 22:59 06:59 14:59 Intake Total 240 / 240 200 / 440 240 / 240 Output Total 520 / 520 Balance 240 / 240 -320 / -80 240 / 240 Weight last 48 hrs Weight 83.631 kg Weight 83.631 kg Weight 78.471 kg Physical Exam Narrative: General: Mild acute distress because of leg pain, AO x3, on room air, pallor present HEENT: PERRLA, pupils bilaterally equal and reactive Chest: Bilateral normal vesicular breath sounds CVS: S1-S2 regular, no murmurs, no tachycardia, no gallops, no rubs Abdomen: Soft, nontender, no organomegaly, bowel sounds present, morbidly obese Neuro: No focal deficits, no facial deformity, AO x3, power 5/5 in all limbs Extremities: Right leg externally rotated, pulses bilaterally equal Data : 04/18/22 03:45 04/18/22 03:45 A&P Assessment and plan (1) Closed intertrochanteric fracture of right hip: Orthopedics has been consulted from the ER. Most likely plan for ORIF. Pain control, monitor hemoglobin postoperatively.. Physical therapy postop. Last dose of Eliquis on 04/17 morning Status: Acute (2) Fall: Sound mechanical Status: Acute (3) Anemia: Check iron panel, vitamin B12, folate level. Hemoglobin at baseline. We will continue to monitor. Status: Acute (4) Malignant neoplasm of prostate: Status: Acute (5) Secondary malignant neoplasm of bone: Status: Acute Plan Analgesia: Morphine 1 mg every 4 hours as needed, Tylenol 6 hours as needed Glycemic control: Not needed. Check A1c Nutrition: Cardiac diet CODE STATUS: Full code PUD prophylaxis: Protonix DVT prophylaxis: SCDs, medical prophylaxis contraindicated as patient will need to go to the OR for ORIF Discharge planning: Home health versus SNF depending on how he does postoperatively with physical therapy. [facility] care at [facility] with telemetry. This documentation was created by [employer] manager transfusion software. Every effort was made to ensure accuracy of manager transfusion. Any obvious errors or omissions should be clarified with the author of the document. Attestations Medical Necessity Statement*: Requires further hospitalization for management of intertrochanteric fracture of right hip Time Spent in Patient Care: Greater than 35 minutes Coding Level of Care Code Acute Banquet Lead for [facility] Fwd Diagnoses Closed intertrochanteric fracture of right hip S72.141A Fall W19.XXXA Anemia D64.9 Malignant neoplasm of prostate C61 Secondary malignant neoplasm of bone C79.51
[2022-04-18] MEDS: cyclobenzaprine 10 mg Tablet PO (15:54)
[2022-04-18] MEDS: acetaminophen 325 mg Tablet 650 MG PO (22:46)
[2022-04-18] MEDS: cyclobenzaprine 10 mg Tablet 5 MG PO (22:46)
[2022-04-19] VITALS (30 sets, daily range): BP systolic 118–148; BP diastolic 52–90; PULSE 66–103; RESP 14–18; TEMP 36.2–37.4; O2SAT 90–100
--- NOTE | 2022-04-19 | SCC_ITS ---
Procedure done: Open reduction internal fixation right hip with intramedullary device 55.5 seconds of fluoroscopic guidance, for a cumulative dose of - mGy, was provided to Dr. Hansen.Nancy by the radiology department. C-arm images of the right hip were saved for the patient's permanent record. DANETTE
--- NOTE | 2022-04-19 | XR_ITS ---
WS: [id number] INTRAOPERATIVE TECHNIQUE: 5 Spot fluoroscopic images for intraoperative purposes. FLUOROSCOPY TIME: 55.5 seconds CLINICAL INFORMATION: ORIF IMAGES COMPARISON: None. FINDINGS: Intraoperative changes RIGHT intratrochanteric screw fixation with femoral addison. Hardware appears in g ood position. Distal addison appears in good position. XR/XR hip RT 2-3V wo/w pel* [id number] IMPRESSION: Images obtained for intraoperative purposes.
[2022-04-19] MEDS: morphine 4 mg/mL SDV 1 mL 2 MG IVP ×6 (01:42→21:54)
[2022-04-19] MEDS: acetaminophen 325 mg Tablet 650 MG PO (05:23)
[2022-04-19 05:29] LABS: Basophils % 0.3 %; Eosinophils % 0.5 %; Hematocrit 31.1 % (42.0-52.0); Hemoglobin 10.7 g/dL (11.7-16.6); Lymphocytes % 13.1 %; Mean Corpuscular HGB Conc 34.4 g/dL (30.0-36.0); Mean Corpuscular Hemoglobin 33.8 pg (28.0-34.0); Mean Corpuscular Volume 98.1 fl (80-94); Mean Platelet Volume 9.5 fL (7.4-10.4); Monocytes % 13.1 %; Neutrophils % 72.7 %; Nucleated Red Blood Cells % 0 %; Platelet Count 124 10^3/cmm (130-400); Red Blood Count 3.17 10^6/uL (4.1-5.3); Red Cell Distribution Width 12.7 % (12.1-15.1); White Blood Count 7.8 10^3/uL (4.0-10.0)
[2022-04-19 05:53] LABS: Alanine Aminotransferase 10 U/L (0-41); Albumin Level 3.2 g/dL (3.5-5.2); Alkaline Phosphatase 59 IU/L (40-130); Anion Gap 11.2 (5-19); Aspartate Amino Transferase 10 U/L (0-40); Blood Urea Nitrogen 14 mg/dL (8-23); Calcium 8.3 mg/dL (8.5-10.5); Carbon Dioxide 26 mmol/L (22-29); Chloride 100 mmol/L (98-107); Globulin 2.1 g/dL (1.3-4.6); Glucose 118 mg/dL (65-115); Osmolality Calculated 278 mOsm/kg (285-295); Potassium 4.2 mmol/L (3.5-5.1); Sodium 133 mmol/L (136-145); Total Bilirubin 0.5 mg/dL (0.15-1.2); Total Protein 5.3 g/dL (6.6-8.7)
--- NOTE | 2022-04-19 06:12 | PC.NURSE ---
Addendum entered by Cheryl Das RN 04/19/22 06:14: call was made on 04/18/22 at 20:00. Original Note: Called and spoke with regarding patients complaints of pain not relieved by PRN morphine, patient appears to be having muscle spasms that were relieved earlier when the patient received flexeril as a one time order. ordered PRN Flexeril BID.
[2022-04-19] MEDS: predniSONE 10 mg Tablet PO (06:39)
[2022-04-19] MEDS: cyclobenzaprine 10 mg Tablet 5 MG PO ×2 (06:46→21:57)
--- NOTE | 2022-04-19 07:39 | ANES.PREANE2 ---
Pre-Anesthetic Assessment Height/Weight: Height 1.93 m Weight 80.422 kg Temp Pulse Resp BP Pulse Ox O2 Del Method 98.2 F 78 18 130/75 92 04/19/22 04:00 04/19/22 06:00 04/19/22 05:24 04/19/22 04:00 04/19/22 04:00 04/18/22 15:48 Preop Diagnosis: Prostate cancer Operation Date: 04/18/22 19:15 Proposed Procedures p Trochanteric Femoral Nail(Right) - Jose Ramon Meehan MD Familial anesthetic complications: none Was Beta Dani taken within 24 hours: N/A Was Clonidine taken within 24 hours: N/A Last intake: Nothing to eat since 04/18/22 Sip of water with pills 04/19/22 Social No alcohol and No tobacco Exam alert, oriented x 3, clear to auscultation bilaterally and regular rate & rhythm Airway Submandibular: within normal limits Cervical ROM: Other (Limited extension ) Mallampati: Class II Comments: Comments: Missing teeth Multiple implants No loose teeth Pulmonary Medistianl adenopathy CV/HEM Atrial Fibrillation, Anemia (Hgb 10.7), Arrythmia (rBBB) and Deep Vein Thrombosis (On apixaban ) EKG 04/17/22 ?Interpretive Statements SINUS RHYTHM RIGHT BUNDLE BRANCH BLOCK? [120+ ms QRS DURATION, UPRIGHT V1, 40+ ms S IN I/aVL/V4/V5/V6] LEFT ANTERIOR FASCICULAR BLOCK? [QRS AXIS <= -45, QR IN I, RS IN II] POSSIBLE SEPTAL MYOCARDIAL INFARCTION , PROBABLY OLD [30 ms Q WAVE IN V1/V2] Compared to ECG 09/09/2021 18:15:20 No significant changes Electronically Signed On 04-18-2022 10:37:49 CDT by Macario Vazquez M.D. [id number] TTE 09/08 CONCLUSIONS ?1. Normal left ventricular size, systolic function and wall ?thickness, with no regional wall motion abnormalities. Left ?ventricular ejection fraction is estimated at 65 %. Normal ?diastolic function. ?2. Normal right ventricular size and systolic function. ?3. No prior similar studies to compare. Venous Duplex 04/15/22 CONCLUSIONS ?No DVT right lower extremity. Na 133 Hx of prostate cancer Hepatic Hypoalbuminemia GI None reported [facility] Port in place for chemotherapy Neck CT 04/17/22 CT/CT cervical spin wo con* [id number] IMPRESSION: 1. No acute spine fracture-subluxation. 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 No significant central canal stenosis related to osseous elements. 2. T1 vertebral body sclerotic lesion, likely metastatic focus. Left C7 pedicle sclerosis is also present. ? Neuropsych Neuropathy Head CT 04/17/22 negative Anesthetic Plan ASA status: 3 Anesthesia: Anesthesia Evaluation and General Other: We discussed risk and benefits of general anesthesia including PONV, sore throat (sometimes severe), corneal abrasion, positioning and peripheral nerve injuries, life threatening allergic reaction, post operative ICU admission requiring prolonged intubation, aspiration, stroke, heart attack, , and rare incidences of recall. Patient consents to proceed with general anesthesia. Plan general with stress dose hydrocortisone 100 mg at induction. Risk of > 500 ml blood loss (7ml/kg in children): No Medications/Allergies Home Medications Medication Instructions Recorded Confirmed Last Taken Type prednisone 10 mg tablet 10 mg PO QAM 06/11/21 04/17/22 04/17/22 History cyanocobalamin (vitamin B-12) 500 500 mcg PO DAILY ##0 09/09/21 04/17/22 04/17/22 History mcg tablet (Vitamin B-12) apixaban 2.5 mg tablet (Eliquis) 2.5 mg PO BID #180 tabs 10/09/21 04/17/22 04/17/22 Rx ibuprofen 200 mg capsule 600 mg PO Q6H PRN Pain 01/26/22 04/17/22 01/26/22 09:00 History multivitamin 1 tab PO QAM 02/23/22 04/17/22 04/17/22 History tamsulosin 0.4 mg capsule 0.4 mg PO DAILY #30 caps 02/23/22 04/17/22 04/17/22 Rx lansoprazole 30 mg capsule,delayed 30 mg PO DAILY 04/17/22 04/17/22 04/17/22 History release Allergies Allergy/AdvReac Type Severity Reaction Status Date / Time No Known Allergies Allergy Verified 04/13/22 09:19 Current Medications Generic Name Dose Route Start Last Admin Trade Name Freq PRN Reason Stop Dose Admin Acetaminophen 650 mg 04/17/22 18:48 04/19/22 05:23 Acetaminophen 325 Mg Tablet PO 650 mg Q6H PRN Administration Mild/Mod Pain Or Temp >/= 101 Cyclobenzaprine HCl 5 mg 04/18/22 20:50 04/19/22 06:46 Cyclobenzaprine 10 Mg Tablet PO 5 mg BID PRN Administration MUSCLE SPASMS Docusate Sodium 100 mg 04/17/22 18:48 04/18/22 17:41 Docusate Sodium 100 Mg Capsule PO 100 mg BID [place] Administration Ferrous Gluconate 324 mg 04/17/22 18:48 04/18/22 17:41 Ferrous Gluconate 324 Mg Tablet PO 324 mg BIDWM [place] Administration Morphine Sulfate 2 mg 04/17/22 19:46 04/19/22 05:24 Morphine 4 Mg/Ml Sdv 1 Ml IVP 2 mg Q4H PRN Administration SEVERE PAIN Ondansetron HCl 4 mg 04/17/22 18:48 04/18/22 02:10 Ondansetron 2 Mg/Ml Sdv 2 Ml IVP 4 mg Q8H PRN Administration vomiting, or N/V if npo Pantoprazole Sodium 40 mg 04/18/22 09:00 04/18/22 10:[address] 40 Mg Tablet PO 40 mg DAILY [place] Administration Prednisone 10 mg 04/18/22 06:00 04/19/22 06:39 Prednisone 10 Mg Tablet PO 10 mg QAM [place] Administration Tamsulosin HCl 0.4 mg 04/18/22 09:00 04/18/22 10:03 Tamsulosin 0.4 Mg Capsule PO 0.4 mg DAILY [place] Administration [facility] Anesthesia Medical History Adenocarcinoma of prostate Anemia C. difficile colitis DVT (deep venous thrombosis) Frailty syndrome in geriatric patient Mediastinal adenopathy (Unknown) Mediastinal lymphadenopathy Prostate cancer Secondary malignant neoplasm of bone Surgical History H/O neck surgery History of appendectomy Family History Other Cancer Stroke Social History Smoking and tobacco status: former smoker Quit status (tobacco): has quit using tobacco Year quit tobacco: 1970 - 1PPD x 5 Years Second hand smoke exposure: No Alcohol intake: former Lives independently: Yes Household members: spouse Marital status: Current occupational status: retired History of recent travel: No Current gender identity: Male Data Anesthesia : 04/19/22 05:20 04/19/22 05:20 Short CBC 04/17/22 04/18/22 04/19/22 Range/Units 15:13 03:45 05:20 WBC 6.2 5.6 7.8 (4.0-10.0) 10^3/uL Hgb 11.3 L 10.5 L 10.7 L (11.7-16.6) g/dL Hct 35.1 L 32.4 L 31.1 L (42.0-52.0) % MCV 103.5 H 103.5 H 98.1 H D (80-94) fl Plt Count 163 155 124 L (130-400) 10^3/cmm Neut % (Auto) 65.1 69.8 72.7 % Neut # (Auto) 4.06 3.93 5.70 (1.8-7.7) 10^3/uL BMP 04/17/22 04/18/22 04/19/22 15:13 03:45 05:20 Sodium 139 138 133 L Potassium 4.0 4.1 4.2 Chloride 104 105 100 Carbon Dioxide 24 24 26 BUN 19 17 14 Creatinine 1.2 0.8 0.8 Glucose 94 93 118 H Calcium 8.5 8.1 L 8.3 L Liver Function 04/17/22 04/18/22 04/19/22 Range/Units 15:13 03:45 05:20 Total Bilirubin 0.2 0.3 0.5 (0.15-1.2) mg/dL AST 15 13 10 (0-40) U/L ALT 14 12 10 (0-41) U/L Alkaline Phosphatase 66 62 59 (40-130) IU/L Albumin 3.5 3.6 3.2 L (3.5-5.2) g/dL Urine 04/17/22 Range/Units 19:30 Urine Color Yellow (Yellow) Urine Appearance Clear (CLEAR) Urine pH 5 (5-7) Ur Specific [place] 1.015 (1.005-1.030) Urine Protein Neg (Negative) Urine Glucose (UA) Norm (Normal) Urine Ketones Negative (Negative) Urine Nitrate Negative (Negative) Urine Bilirubin Neg (Negative) Ur Leukocyte Esterase Negative (Negative) Cardiac Studies: Echocardiogram 09/10/21
--- NOTE | 2022-04-19 08:39 | P.PN_ITS ---
Subjective Subjective: Resting comfortably in bed. Plan to do surgery today. Either myself or Dr. Meehan. Vitals/I&O/Wt Last Vital Signs Temp 98.8 F 04/19/22 08:00 Pulse 74 04/19/22 08:00 Resp 16 04/19/22 08:00 BP 121/73 04/19/22 08:00 Pulse Ox 93 04/19/22 08:00 O2 Del Method 04/19/22 08:00 04/18/22 04/19/22 04/19/22 22:59 06:59 14:59 Intake Total 1120 / 1360 Output Total 1000 / 1000 250 / 1250 Balance 120 / 360 -250 / 110 Weight last 48 hrs Weight 177 lb 4.8 oz Weight 184 lb 6 oz Weight 184 lb 6 oz Weight 173 lb Physical Exam Narrative: Resting comfortably in bed Data : 04/19/22 05:20 04/19/22 05:20 A&P Assessment and plan (1) Closed intertrochanteric fracture of right hip: Right hip nail today. Status: Acute Attestations Medical Necessity Statement*: Pain control Coding Level of Care Code Acute Hotel General Manager for g Fwd Diagnoses Closed intertrochanteric fracture of right hip S72.141A
[2022-04-19] MEDS: pantoprazole DR 40 mg Tablet PO (09:18)
[2022-04-19] MEDS: sodium chloride 0.9% 1,000 ML 30 ML IV (12:10)
[2022-04-19] MEDS: ceFAZolin 3,000 MG in sodium chloride 0.9% (100 ml) 100 ML 200 MG IV (12:15)
--- NOTE | 2022-04-19 13:42 | P.OP_ITS ---
Operative Report Date of procedure: April 19, 2022 Pre-op diagnosis: Preop Diagnosis Prostate cancer Post-op diagnosis: Same Procedure done: Open reduction internal fixation right hip with intramedullary device Implants: Markus Gamma nail 13 mm x 440 mm, 10.5mm by 110 lag screw Pathology: none sent Surgeon: Jose Ramon Meehan Anesthesia: General Estimated blood loss (mL): 100 Findings: The patient had a comminuted right intratrochanteric hip fracture consisting of a head and neck, shaft, and several greater trochanteric fragment Condition: stable Disposition: PACU Procedure: The patient was taken to the operating room. They were given 1 g of Ancef. They were positioned on the fracture table with the right lower extremity in gentle traction. A timeout was performed. A 2 cm long incision was made proximal to the greater trochanter scalpel blade. Dissection was carried down to tip the greater trochanter. A guidepin was passed manually from the tip of the trochanter down the shaft. The proximal reamer was utilized to open up the proximal canal. An 13 mm by 440 mm [place] gamma nail was passed down the canal without difficulty. Under visualization of fluoroscopy a guidepin was driven up into the head and neck at 125? angle. It was measured at 110 mm in length and a lag screw similar length was then placed and locked into place with the proximal locking screw. Intraoperative imaging was obtained verifying satisfactory position of the hardware and reduction of the fracture. Deep tissues were closed with 0 Vicryl as were subcutaneous tissues. The skin was closed with running 4-0 subcutaneous Monocryl suture. Sterile dressings were applied. The patient was extubated and taken to recovery room in stable condition.
--- NOTE | 2022-04-19 13:59 | PM.PN ---
Subjective Subjective: Patient complains of a little right hip pain at rest Vitals/I&O/Wt Last Vital Signs Temp 98.3 F 04/19/22 13:51 Pulse 81 04/19/22 13:56 Resp 18 04/19/22 13:56 BP 131/78 04/19/22 13:56 Pulse Ox 93 04/19/22 13:56 O2 Del Method 04/19/22 13:56 04/18/22 04/19/22 04/19/22 22:59 06:59 14:59 Intake Total 1120 / 1360 400 / 400 Output Total 1000 / 1000 250 / 1250 100 / 100 Balance 120 / 360 -250 / 110 300 / 300 Weight last 48 hrs Weight 177 lb 4.8 oz Weight 184 lb 6 oz Weight 184 lb 6 oz Weight 173 lb Physical Exam Narrative: Right lower extremity in shortened and externally rotated position. Flexes and extends toes and ankle Data : 04/19/22 05:20 04/19/22 05:20 Xray Ortho: My impression: The patient has a previously described right intratrochanteric hip fracture. No evidence of malignancy or other destructive processes of bone are seen on radiographs Other CT: My impression: CT of the right hip is reviewed. Destructive or blastic processes of bone are seen in the intertrochanteric region of the right hip A&P Assessment and plan (1) Closed intertrochanteric fracture of right hip: I can see no evidence of pathological processes about the right hip. I discussed options with the patient and his daughter. I told them we could treat this nonoperatively but certainly they would be at risk for medical problems without surgery. Theywould have problems with pain that would require narcotics for pain control. They would require a long period of bedrest junior accountant bookkeeper risk for pneumonia and skin breakdown. I discussed surgical intervention with the patient. I told them with open reduction internal fixation they should be able to be mobilized and resume ambulatory status. We can eliminate the problems associated with prolonged bed rest and would have better control of pain. Certainly there would be inherent risk with surgery. These would would include the risk of cardiac complications, stroke, infection, and even . I discussed risk of any orthopedic implant including nonunion, malunion, a component failure. I discussed the possible need for component removal. I discussed risk of deep venous thromboses and pulmonary emboli that are present with any treatment and the importance of DVT prophylaxis. They expressed good understanding of alternative treatments, seem to comprehend, and agrees to surgical intervention. Status: Acute Attestations Medical Necessity Statement*: Surgery today Coding Level of Care Code Acute Paint Spraying Machine Operator Helper for Ike Treviño Diagnoses Closed intertrochanteric fracture of right hip S72.141A
[2022-04-19] MEDS: fentaNYL 50 mcg/mL INJ 2mL IVP ×2 (14:00→14:17)
[2022-04-19] MEDS: sodium chloride 0.9% 1,000 ML 70 ML IV (15:18)
--- NOTE | 2022-04-19 16:02 | P.PN_ITS ---
Subjective Subjective: No acute events overnight, his other vitals and labs have been reviewed. Medications: Medication Review Details: Generic Name Dose Route Start Last Admin Trade Name Freq PRN Reason Stop Dose Admin Acetaminophen 650 mg 04/17/22 18:48 04/19/22 05:23 Acetaminophen 32 5 Mg Tablet PO 650 mg Q6H PRN Administration Mild/Mod Pain Or Temp >/= 101 Cyclobenzaprine HC l 5 mg 04/18/22 20:50 04/19/22 06:46 Cyclobenzaprine 10 Mg Tablet PO 5 mg BID PRN Administration MUSCLE SPASMS Ferrous Gluconate 324 mg 04/17/22 18:48 04/19/22 09:20 Ferrous Gluconat e 324 Mg Tablet PO Not Given BIDWM [place] Sodium Chloride 1,000 mls @ 70 ml s/hr 04/19/22 14:46 04/19/22 15:18 Sodium Chloride 0.9% IV 70 mls/hr .[id number] [place] Administration Morphine Sulfate 2 mg 04/17/22 19:46 04/19/22 09:18 Morphine 4 Mg/Ml Sdv 1 Ml IVP 2 mg Q4H PRN Administration SEVERE PAIN Ondansetron HCl 4 mg 04/17/22 18:48 04/18/22 02:10 Ondansetron 2 Mg /Ml Sdv 2 Ml IVP 4 mg Q8H PRN Administration vomiting, or N/V if npo Pantoprazole Sodiu m 40 mg 04/18/22 09:00 04/19/22 09:[address] 40 Mg Tablet PO 40 mg DAILY [place] Administration Prednisone 10 mg 04/18/22 06:00 04/19/22 06:39 Prednisone 10 Mg Tablet PO 10 mg QAM [place] Administration Tamsulosin HCl 0.4 mg 04/18/22 09:00 04/19/22 09:21 Tamsulosin 0.4 M g Capsule PO Not Given DAILY [place] Vitals/I&O/Wt Last Vital Signs Temp 97.2 F L 04/19/22 14:30 Pulse 68 04/19/22 14:30 Resp 18 04/19/22 14:30 BP 136/71 04/19/22 14:30 Pulse Ox 100 04/19/22 14:30 O2 Del Method 04/19/22 14:30 O2 Flow Rate 4 04/19/22 14:25 04/19/22 04/19/22 04/19/22 06:59 14:59 22:59 Intake Total 800 / 800 Output Total 250 / 1250 100 / 100 Balance -250 / 110 700 / 700 Weight last 48 hrs Weight 80.422 kg Weight 83.631 kg Weight 83.631 kg Physical Exam Const: COMMON NORMALS: patient oriented x3 HENMT: COMMON NORMALS: normocephalic and atraumatic HEAD & SCALP: normocephalic and atraumatic Resp: COMMON NORMALS: clear to auscultation bilaterally AUSCULTATION: clear to auscultation bilaterally Cardio: COMMON NORMALS: regular rate, regular rhythm, S1 normal heart sound present, S2 normal heart sound present, No gallops present (Cardio), No murmurs present (Cardio), No rub (Cardio) and Peripheral pulses 2+ throughout RATE: regular rate RHYTHM: regular rhythm HEART SOUNDS: S1 normal heart sound present and S2 normal heart sound present PERIPHERAL PULSES: Peripheral pulses 2+ throughout GI: COMMON NORMALS: Normal to inspection, nondistended, normoactive bowel sounds present, Soft to palpation, non-tender, No hepatosplenomegaly present and no masses AUSCULTATION: Yes normoactive bowel sounds PALPATION: Yes Soft to palpation and Yes No hepatosplenomegaly present RECTAL EXAM: Yes deferred Extremity: COMMON NORMALS: no clubbing, cyanosis or edema and no pedal edema Neuro: COMMON NORMALS: patient oriented x3 Data : 04/19/22 05:20 04/19/22 05:20 A&P Assessment and plan (1) Closed intertrochanteric fracture of right hip: Pain control Bowel regimen S/p: Open reduction internal fixation right hip with intramedullary device Physical therapy on board Status: Acute (2) Fall: Sound mechanical Status: Acute (3) Anemia: Check iron panel, vitamin B12, folate level. Hemoglobin at baseline. We will continue to monitor. Status: Acute (4) Malignant neoplasm of prostate: Status: Acute (5) Secondary malignant neoplasm of bone: Status: Acute Plan History of DVT: On Eliquis at home: Has been resumed from evening DVT prophylaxis: Not needed on Eliquis Discharge planning: Home health versus SNF depending on how he does postoperatively with physical therapy. Attestations Medical Necessity Statement*: Patient is still in hospital for management of right hip fracture. Coding Level of Care Code Acute Senior Accounts Payable Specialist for g Fwd Diagnoses Closed intertrochanteric fracture of right hip S72.141A Fall W19.XXXA Anemia D64.9 Malignant neoplasm of prostate C61 Secondary malignant neoplasm of bone C79.51
--- NOTE | 2022-04-19 17:56 | ANE.PACU2 ---
Inpatient post-anesthesia follow up: Airway intact: Yes Vital signs: Temperature 97.2 F Pulse Rate 68 Respiratory Rate 16 Blood Pressure 136/71 Pulse Oximetry 100 Oxygen Delivery Me thod Room Air Oxygen Flow Rate 4 Fraction of Inspir ed Oxygen Hydration adequate: Yes Nausea and vomiting: No Pain level: 5 Mental status: Baseline
[2022-04-19] MEDS: oxyCODONE 5 mg IR Tab/Cap PO (18:11)
[2022-04-19] MEDS: apixaban 5 mg Tablet 2.5 MG PO (18:12)
[2022-04-19] MEDS: ferrous gluconate 324 mg Tablet PO (18:12)
[2022-04-19] MEDS: ceFAZolin 2,000 MG in sodium chloride 0.9% (plus) 50 ML 100 MG IV (20:12)
[2022-04-20] VITALS (15 sets, daily range): BP systolic 104–131; BP diastolic 66–79; PULSE 75–96; RESP 13–18; TEMP 36.4–37.2; O2SAT 90–96; BMI 21.9
[2022-04-20] MEDS: oxyCODONE 5 mg IR Tab/Cap PO ×5 (00:28→17:35)
[2022-04-20] MEDS: ceFAZolin 2,000 MG in sodium chloride 0.9% (plus) 50 ML 100 MG IV ×2 (03:09→12:01)
[2022-04-20] MEDS: sodium chloride 0.9% 1,000 ML 70 ML IV (04:20)
[2022-04-20] MEDS: predniSONE 10 mg Tablet PO (05:20)
[2022-04-20 05:53] LABS: Basophils % 0.3 %; Eosinophils % 0.3 %; Hematocrit 31.1 % (42.0-52.0); Hemoglobin 10.3 g/dL (11.7-16.6); Lymphocytes # 0.9 10^3/uL (0.8-4.8); Lymphocytes % 12.2 %; Mean Corpuscular HGB Conc 33.1 g/dL (30.0-36.0); Mean Corpuscular Volume 99.7 fl (80-94); Mean Platelet Volume 9.9 fL (7.4-10.4); Monocytes % 12.4 %; Neutrophils # 5.76 10^3/uL (1.8-7.7); Neutrophils % 74.4 %; Nucleated Red Blood Cells % 0 %; Platelet Count 155 10^3/cmm (130-400); Red Blood Count 3.12 10^6/uL (4.1-5.3); Red Cell Distribution Width 13.1 % (12.1-15.1); White Blood Count 7.7 10^3/uL (4.0-10.0)
[2022-04-20] MEDS: cyclobenzaprine 10 mg Tablet 5 MG PO ×2 (05:58→23:02)
[2022-04-20 06:14] LABS: Anion Gap 14.3 (5-19); Blood Urea Nitrogen 15 mg/dL (8-23); Calcium 7.8 mg/dL (8.5-10.5); Carbon Dioxide 25 mmol/L (22-29); Chloride 103 mmol/L (98-107); Glucose 119 mg/dL (65-115); Osmolality Calculated 288 mOsm/kg (285-295); Potassium 4.3 mmol/L (3.5-5.1); Sodium 138 mmol/L (136-145)
--- NOTE | 2022-04-20 08:12 | PM.PN ---
Subjective Subjective: Patient complains of hip pain. Awake and alert. Vitals/I&O/Wt Last Vital Signs Temp 98.2 F 04/20/22 07:26 Pulse 79 04/20/22 07:26 Resp 16 04/20/22 07:26 BP 114/79 04/20/22 07:26 Pulse Ox 94 04/20/22 07:26 O2 Del Method 04/19/22 17:50 O2 Flow Rate 4 04/19/22 14:25 04/19/22 04/20/22 04/20/22 22:59 06:59 14:59 Intake Total 850 / 1650 962.333 / 2612.333 Output Total 750 / 850 325 / 1175 Balance 100 / 800 637.333 / 1437.333 Weight last 48 hrs Weight 180 lb 7 oz Weight 177 lb 4.8 oz Physical Exam Narrative: Right hip dressing clean and dry. Minimal swelling right thigh Data : 04/20/22 05:25 04/20/22 05:25 A&P Assessment and plan (1) Closed intertrochanteric fracture of right hip: Status: Acute (2) Status post open reduction with internal fixation of fracture: Begin the mobilize with therapy. Will need nursing home placement. Therapy to apply AFO for foot drop Status: Acute Attestations Medical Necessity Statement*: [facility] placement per primary care Coding Level of Care Code Acute Maintainability Engineer for Ike Treviño Diagnoses Closed intertrochanteric fracture of right hip S72.141A Status post open reduction with internal fixation of fracture Z98.890; Z87.81
--- NOTE | 2022-04-20 09:14 | PC.SOCIAL ---
Pg 2 IMM Explained to pt Pg 2 IMM. No questions voiced. Provided pt a copy. Initialed, dated, & timed a copy & placed in chart.
[2022-04-20] MEDS: ferrous gluconate 324 mg Tablet PO ×2 (09:22→17:12)
[2022-04-20] MEDS: tamsulosin 0.4 mg Capsule PO (09:22)
[2022-04-20] MEDS: cyanocobalamin 1,000 mcg Tablet 500 MCG PO (09:22)
[2022-04-20] MEDS: pantoprazole DR 40 mg Tablet PO (09:22)
[2022-04-20] MEDS: apixaban 5 mg Tablet 2.5 MG PO ×2 (09:23→17:13)
[2022-04-20] MEDS: acetaminophen 325 mg Tablet 650 MG PO ×2 (12:02→20:00)
--- NOTE | 2022-04-20 16:03 | PM.PN ---
Subjective Subjective: Patient was seen and examined this morning complaining of right hip pain. H&H is stable, Eliquis has been resumed. No other acute events. Medications: Medication Review Details: Generic Name Dose Route Start Last Admin Trade Name Freq PRN Reason Stop Dose Admin Acetaminophen 650 mg 04/17/22 18:48 04/19/22 05:23 Acetaminophen 32 5 Mg Tablet PO 650 mg Q6H PRN Administration Mild/Mod Pain Or Temp >/= 101 Cyclobenzaprine HC l 5 mg 04/18/22 20:50 04/19/22 06:46 Cyclobenzaprine 10 Mg Tablet PO 5 mg BID PRN Administration MUSCLE SPASMS Ferrous Gluconate 324 mg 04/17/22 18:48 04/19/22 09:20 Ferrous Gluconat e 324 Mg Tablet PO Not Given BIDWM [place] Sodium Chloride 1,000 mls @ 70 ml s/hr 04/19/22 14:46 04/19/22 15:18 Sodium Chloride 0.9% IV 70 mls/hr .[id number] [place] Administration Morphine Sulfate 2 mg 04/17/22 19:46 04/19/22 09:18 Morphine 4 Mg/Ml Sdv 1 Ml IVP 2 mg Q4H PRN Administration SEVERE PAIN Ondansetron HCl 4 mg 04/17/22 18:48 04/18/22 02:10 Ondansetron 2 Mg /Ml Sdv 2 Ml IVP 4 mg Q8H PRN Administration vomiting, or N/V if npo Pantoprazole Sodiu m 40 mg 04/18/22 09:00 04/19/22 09:[address] 40 Mg Tablet PO 40 mg DAILY [place] Administration Prednisone 10 mg 04/18/22 06:00 04/19/22 06:39 Prednisone 10 Mg Tablet PO 10 mg QAM [place] Administration Tamsulosin HCl 0.4 mg 04/18/22 09:00 04/19/22 09:21 Tamsulosin 0.4 M g Capsule PO Not Given DAILY [place] Vitals/I&O/Wt Last Vital Signs Temp 98.1 F 04/20/22 15:22 Pulse 75 04/20/22 15:22 Resp 16 04/20/22 15:22 BP 113/70 04/20/22 15:22 Pulse Ox 96 04/20/22 15:22 O2 Del Method 04/19/22 17:50 O2 Flow Rate 4 04/19/22 14:25 04/20/22 04/20/22 04/20/22 06:59 14:59 22:59 Intake Total 962.333 / 2612.333 1530 / 1530 Output Total 325 / 1175 Balance 637.333 / 2995.234 4380 / 1530 Weight last 48 hrs Weight 81.845 kg Weight 80.422 kg Physical Exam Const: COMMON NORMALS: patient oriented x3 HENMT: COMMON NORMALS: normocephalic and atraumatic HEAD & SCALP: normocephalic and atraumatic Resp: COMMON NORMALS: clear to auscultation bilaterally AUSCULTATION: clear to auscultation bilaterally Cardio: COMMON NORMALS: regular rate, regular rhythm, S1 normal heart sound present, S2 normal heart sound present, No gallops present (Cardio), No murmurs present (Cardio), No rub (Cardio) and Peripheral pulses 2+ throughout RATE: regular rate RHYTHM: regular rhythm HEART SOUNDS: S1 normal heart sound present and S2 normal heart sound present PERIPHERAL PULSES: Peripheral pulses 2+ throughout GI: COMMON NORMALS: Normal to inspection, nondistended, normoactive bowel sounds present, Soft to palpation, non-tender, No hepatosplenomegaly present and no masses AUSCULTATION: Yes normoactive bowel sounds PALPATION: Yes Soft to palpation and Yes No hepatosplenomegaly present RECTAL EXAM: Yes deferred Extremity: COMMON NORMALS: no clubbing, cyanosis or edema and no pedal edema Neuro: COMMON NORMALS: patient oriented x3 Data : 04/20/22 05:25 04/20/22 05:25 A&P Assessment and plan (1) Closed intertrochanteric fracture of right hip: Pain control Bowel regimen S/p: Open reduction internal fixation right hip with intramedullary device Physical therapy on board Status: Acute (2) Fall: Sound mechanical Status: Acute (3) Anemia: Check iron panel, vitamin B12, folate level. Hemoglobin at baseline. We will continue to monitor. Status: Acute (4) Malignant neoplasm of prostate: Status: Acute (5) Secondary malignant neoplasm of bone: Status: Acute Plan History of DVT: On Eliquis at home: Has been resumed from evening DVT prophylaxis: Not needed on Eliquis Discharge planning: Home health versus SNF depending on how he does postoperatively with physical therapy. Attestations Medical Necessity Statement*: Patient is to the hospital for management of right fracture, postop day 1, will likely need SNF placement. Coding Level of Care Code Acute Senior Center Director for [facility] Fwd Diagnoses Closed intertrochanteric fracture of right hip S72.141A Fall W19.XXXA Anemia D64.9 Malignant neoplasm of prostate C61 Secondary malignant neoplasm of bone C79.51
[2022-04-20] MEDS: morphine 4 mg/mL SDV 1 mL 2 MG IVP (16:30)
[2022-04-21] VITALS (10 sets, daily range): BP systolic 100–131; BP diastolic 54–70; PULSE 76–103; RESP 12–18; TEMP 36.4–36.9; O2SAT 90–95
[2022-04-21] MEDS: oxyCODONE 5 mg IR Tab/Cap PO ×3 (00:39→10:05)
[2022-04-21] MEDS: predniSONE 10 mg Tablet PO (05:49)
--- NOTE | 2022-04-21 07:47 | P.PN_ITS ---
Subjective Subjective: Right hip pain somewhat improved. Vitals/I&O/Wt Last Vital Signs Temp 97.6 F 04/21/22 04:00 Pulse 76 04/21/22 06:00 Resp 13 04/21/22 04:00 BP 131/70 04/21/22 04:00 Pulse Ox 90 04/21/22 04:00 O2 Del Method 04/21/22 04:00 O2 Flow Rate 3.5 04/21/22 04:00 04/20/22 04/21/22 04/21/22 22:59 06:59 14:59 Intake Total 0 / 1530 Output Total 900 / 900 200 / 1100 Balance -900 / 630 -200 / 430 Weight last 48 hrs Weight 182 lb 4 oz Weight 180 lb 7 oz Physical Exam Narrative: Hip dressings clean and dry. Minimal swelling right thigh. Data : 04/20/22 05:25 04/20/22 05:25 A&P Assessment and plan (1) Closed intertrochanteric fracture of right hip: Status: Acute (2) Status post open reduction with internal fixation of fracture: Continue to mobilize with therapy Will need snf. Status: Acute Attestations Medical Necessity Statement*: Okay for discharge to snf per Ortho Coding Level of Care Code Acute Blueprint Maker for [facility] Fwd Diagnoses Closed intertrochanteric fracture of right hip S72.141A Status post open reduction with internal fixation of fracture Z98.890; Z87.81
[2022-04-21] MEDS: pantoprazole DR 40 mg Tablet PO (08:32)
[2022-04-21] MEDS: ferrous gluconate 324 mg Tablet PO (08:32)
[2022-04-21] MEDS: tamsulosin 0.4 mg Capsule PO (08:32)
[2022-04-21] MEDS: cyanocobalamin 1,000 mcg Tablet 500 MCG PO (08:32)
[2022-04-21] MEDS: apixaban 5 mg Tablet 2.5 MG PO (08:33)
[2022-04-21] MEDS: morphine 4 mg/mL SDV 1 mL 2 MG IVP ×2 (08:35→13:16)
--- NOTE | 2022-04-21 12:17 | P.DS_ITS ---
Discharge Providers Date of Admission: 04/17/22 16:55 Date of Discharge: April 21, 2022 Attending Provider at Admission: Dawson Barnhart MD Attending Provider at Discharge: Lobo Payan MD Primary Care Provider: Anatoly Ochoa MD Diagnoses at Discharge Discharge Diagnosis (1) Closed intertrochanteric fracture of right hip: Status: Inactive (2) Status post open reduction with internal fixation of fracture: Status: Inactive Reason for Visit Reason for Visit: RIGHT HIP PAIN S/P FALL Hospital Course Hospital Course HPI:Dawson Barnhart MD ?86 year old male with past medical history of prostate cancer, right leg DVT, atrial fibrillation on chronic anticoagulation with Eliquis presents to the ER today after having what sounds like a mechanical fall.? Patient has a history of chronic neuropathy and weakness of the right leg specifically the great toe.? He reports food getting caught in something in him tripping and landing on right side after which he had pain on the right side on moving.? In the ER found to have right-sided hip fracture. Hospital course: Patient was admitted for the management of: Closed intertrochanteric fracture of right hip: S/p: Open reduction internal fixation right hip with intramedullary device, physical therapy was on board, adequate pain control bowel regimen was done, Eliquis was resumed after surgery, H&H was monitored. Patient responded well to medical management and was discharged TO SNF facility. He will continue to see Ortho as an outpatient Physical Exam Const: COMMON NORMALS: patient oriented x3 HENMT: COMMON NORMALS: normocephalic and atraumatic HEAD & SCALP: normocephalic and atraumatic Resp: COMMON NORMALS: clear to auscultation bilaterally AUSCULTATION: clear to auscultation bilaterally Cardio: COMMON NORMALS: regular rate, regular rhythm, S1 normal heart sound present, S2 normal heart sound present, No gallops present (Cardio), No murmurs present (Cardio), No rub (Cardio) and Peripheral pulses 2+ throughout RATE: regular rate RHYTHM: regular rhythm HEART SOUNDS: S1 normal heart sound present and S2 normal heart sound present PERIPHERAL PULSES: Peripheral pulses 2+ throughout GI: COMMON NORMALS: Normal to inspection, nondistended, normoactive bowel sounds present, Soft to palpation, non-tender, No hepatosplenomegaly present and no masses AUSCULTATION: Yes normoactive bowel sounds PALPATION: Yes Soft to palpation and Yes No hepatosplenomegaly present RECTAL EXAM: Yes deferred Extremity: COMMON NORMALS: no clubbing, cyanosis or edema and no pedal edema Neuro: COMMON NORMALS: patient oriented x3 Discharge Data Studies Completed and Pending Completed Studies During Hospitalization Category Date Time Status CT bony pelvis 14129 Routine Cat Scan 04/18/22 13:[address] cervical spin wo con* [id number] Stat Cat Scan 04/17/22 14:[address] head wo con* [id number] Stat Cat Scan 04/17/22 14:06 Completed XR chest 1V portable [id number] Stat Exams 04/17/22 14:06 Completed XR femur RT 1V [id number] Routine Exams 04/18/22 13:25 Completed XR foot RT min 3V* [id number] Stat Exams 04/17/22 14:29 Completed XR hip RT 2-3V wo/w pel* [id number] Routine Exams 04/19/22 Completed XR hip RT 2-3V wo/w pel* [id number] Stat Exams 04/17/22 14:06 Completed Radiology Impressions Cervical Spine CT 04/17/22 14:06 IMPRESSION: 1. No acute spine fracture-subluxation. 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 No significant central canal stenosis related to osseous elements. 2. T1 vertebral body sclerotic lesion, likely metastatic focus. Left C7 pedicle sclerosis is also present. Chest X-Ray 04/17/22 14:06 IMPRESSION: No acute cardiopulmonary findings. Other osseous findings as above. Head CT 04/17/22 14:06 IMPRESSION: No acute intracranial findings. Foot X-Ray 04/17/22 14:29 IMPRESSION: Tiny calcific density medial base of 1st proximal phalanx as described. No acute findings otherwise. Pelvis CT 04/18/22 13:23 IMPRESSION: 1. Right intertrochanteric hip fracture with mildly displaced osseous fragments and hemarthrosis. 2. Abdominal aortic aneurysm measuring 3.2 cm with aneurysmal dilation of the bilateral common iliac arteries up to 1.7 cm. 3. Similar appearance of osseous metastatic lesions within the right ilium and right sacrum. Femur X-Ray 04/18/22 13:25 IMPRESSION: Mildly displaced right intertrochanteric hip fracture. Hip/Pelvis X-Ray 04/19/22 00:00 IMPRESSION: Images obtained for intraoperative purposes. Laboratory Results WBC 7.7 10^3/uL (4.0-10.0) 04/20/22 05:25 RBC 3.12 10^6/uL (4.1-5.3) L 04/20/22 05:25 Hgb 10.3 g/dL (11.7-16.6) L 04/20/22 05:25 Hct 31.1 % (42.0-52.0) L 04/20/22 05:25 MCV 99.7 fl (80-94) H 04/20/22 05:25 MCH 33.0 pg (28.0-34.0) 04/20/22 05:25 MCHC 33.1 g/dL (30.0-36.0) 04/20/22 05:25 RDW 13.1 % (12.1-15.1) 04/20/22 05:25 Plt Count 155 10^3/cmm (130-400) 04/20/22 05:25 MPV 9.9 fL (7.4-10.4) 04/20/22 05:25 Neut % (Auto) 74.4 % 04/20/22 05:25 Lymph % (Auto) 12.2 % 04/20/22 05:25 [place] % (Auto) 12.4 % 04/20/22 05:25 Eos % (Auto) 0.3 % 04/20/22 05:25 Baso % (Auto) 0.3 % 04/20/22 05:25 Neut # (Auto) 5.76 10^3/uL (1.8-7.7) 04/20/22 05:25 Lymph # (Auto) 0.9 10^3/uL (0.8-4.8) 04/20/22 05:25 [place] # (Auto) 1.0 10^3/uL (0.2-0.9) H 04/20/22 05:25 Eos # (Auto) 0.0 10^3/uL (0.0-0.8) 04/20/22 05:25 Baso # (Auto) 0.0 10^3/uL (0.0-0.1) 04/20/22 05:25 Nucleated RBC % (auto) 0 % 04/20/22 05:25 Nucleated RBCs # 0.0 /100WBC 04/20/22 05:25 Sodium 138 mmol/L (136-145) 04/20/22 05:25 Potassium 4.3 mmol/L (3.5-5.1) 04/20/22 05:25 Chloride 103 mmol/L (98-107) 04/20/22 05:25 Carbon Dioxide 25 mmol/L (22-29) 04/20/22 05:25 Anion Gap 14.3 (5-19) 04/20/22 05:25 BUN 15 mg/dL (8-23) 04/20/22 05:25 Creatinine 1.0 mg/dL (0.7-1.2) 04/20/22 05:25 GFR Calculation Not Reportable 04/20/22 05:25 Glucose 119 mg/dL (65-115) H 04/20/22 05:25 Estimat Average Glucose 97 04/18/22 03:45 Hemoglobin A1c 5.0 % (4.0-6.0) 04/18/22 03:45 Calculated Osmolality 288 mOsm/kg (285-295) 04/20/22 05:25 Calcium 7.8 mg/dL (8.5-10.5) L 04/20/22 05:25 Phosphorus 3.7 mg/dL (2.5-4.5) 04/18/22 03:45 Magnesium 1.5 mg/dL (1.7-2.3) L 04/18/22 03:45 Iron 62 ug/dL (59-158) 04/17/22 15:13 TIBC 253 mcg/dl 04/17/22 15:13 % Saturation 24.5 % (20-50) 04/17/22 15:13 Unsat Iron Binding 191 ug/dL (112-347) 04/17/22 15:13 Total Bilirubin 0.5 mg/dL (0.15-1.2) 04/19/22 05:20 AST 10 U/L (0-40) 04/19/22 05:20 ALT 10 U/L (0-41) 04/19/22 05:20 Alkaline Phosphatase 59 IU/L (40-130) 04/19/22 05:20 Total Protein 5.3 g/dL (6.6-8.7) L 04/19/22 05:20 Albumin 3.2 g/dL (3.5-5.2) L 04/19/22 05:20 Globulin 2.1 g/dL (1.3-4.6) 04/19/22 05:20 Triglycerides 97 mg/dL (0-150) 04/18/22 03:45 Cholesterol 150 mg/dL (0-200) 04/18/22 03:45 LDL Cholesterol, Calc 80 mg/dL (50-129) 04/18/22 03:45 Total VLDL Cholesterol 19 mg/dL (0-30) 04/18/22 03:45 HDL Cholesterol 51 mg/dL (60-100) L 04/18/22 03:45 Cholesterol/HDL Ratio 2.94 mg/dL (1.0-5.00) 04/18/22 03:45 Vitamin B12 > 2000 pg/mL (232-1245) H 04/17/22 15:13 Folate 9.1 ng/mL (4.5-32.2) 04/17/22 15:13 Procalcitonin 0.07 ng/mL (0-0.5) 04/17/22 15:13 TSH 3.36 uIU/mL (0.27-4.20) 04/17/22 15:13 Urine Color Yellow (Yellow) 04/17/22 19:30 Urine Appearance Clear (CLEAR) 04/17/22 19:30 Urine pH 5 (5-7) 04/17/22 19:30 Ur Specific [place] 1.015 (1.005-1.030) 04/17/22 19:30 Urine Protein Neg (Negative) 04/17/22 19:30 Urine Glucose (UA) Norm (Normal) 04/17/22 19:30 Urine Ketones Negative (Negative) 04/17/22 19:30 Urine Blood Neg (Negative) 04/17/22 19:30 Urine Nitrate Negative (Negative) 04/17/22 19:30 Urine Bilirubin Neg (Negative) 04/17/22 19:30 Urine Urobilinogen Neg mg/dL (Negative) 04/17/22 19:30 Ur Leukocyte Esterase Negative (Negative) 04/17/22 19:30 Blood Type A Positive 04/19/22 08:18 Rho(D) Type Positive 04/19/22 08:18 Antibody Screen Negative 04/19/22 08:18 Vitals Last Vital Signs Temp 98.2 F 04/21/22 12:00 Pulse 103 H 04/21/22 12:00 Resp 13 04/21/22 12:00 BP 100/54 04/21/22 12:00 Pulse Ox 95 04/21/22 08:00 O2 Del Method 04/21/22 12:00 O2 Flow Rate 3.5 04/21/22 04:00 Discharge Plan Discharge Patient Disposition: Xfer SNF Condition: Stable Prescriptions: New oxycodone 5 mg Tablet 5 mg PO Q4H PRN (Reason: Moderate Pain) 14 Days Qty: 30 0RF cyclobenzaprine 10 mg Tablet 5 mg PO BID PRN (Reason: Muscle Spasms) 14 Days Qty: 30 0RF docusate sodium 100 mg tablet 100 mg PO BID Qty: 30 0RF Continued ibuprofen 200 mg capsule 600 mg PO Q6H PRN (Reason: Pain) multivitamin Tablet 1 tab PO QAM tamsulosin 0.4 mg capsule 0.4 mg PO DAILY Qty: 30 5RF Eliquis 2.5 mg tablet 2.5 mg PO BID Qty: 180 3RF Rx Instructions: 340b please cyanocobalamin (vitamin B-12) [Vitamin B-12] 500 mcg Tablet 500 mcg PO DAILY Qty: 0 prednisone 10 mg tablet 10 mg PO QAM lansoprazole 30 mg capsule,delayed release(DR/EC) 30 mg PO DAILY Discharge Orders: Discharge Order (Routine); Ordered 04/21/22 Ordered By: Lobo Payan Referrals: [facility] [Outside] Anatoly Ochoa MD [Primary Care Provider] - 05/10/22 2:15 pm Jose Ramon Meehan MD [Physician] - 06/01/22 10:15 am Discharge Diet: Advance as tolerated Discharge Activity: Limit activity as instructed Patient Instructions: Cyclobenzaprine (By mouth), Laxative, Stool Softeners (By mouth), Hip Fracture (GEN), Opioid Safety Activity Restrictions/Additional Instructions: Weight-bear as tolerated. Use walker. May change dressings as needed. Okay to shower or bathe as long as incisions free of drainage Discharge Attestations Time Spent in Discharge Care*: less than 30 min Quality Metrics Clinical Quality Measures [ No reported AMI, CVA or VTE this stay] Coding Level of Care Code Acute Chg FW DC note Diagnoses Closed intertrochanteric fracture of right hip S72.141A Status post open reduction with internal fixation of fracture Z98.890; Z87.81
[2022-04-21 14:25] LABS: SARS Covid-2 Antigen Negative (Negative)
--- NOTE | 2022-04-21 16:03 | PC.NURSE ---
attempted to call report to [place] at 1349 and again at 1352. no one available to take report at those times. This nurse left number to floor with Merlene at [facility], she stated to this nurse that we will call back for report
== END 2022-04-21 16:05 | disposition skilled nursing facility (03) | DRG 481 ==
LOC: ER 16:52 → MEDSURG 16:56
PROVIDERS: Orthopaedic Surgery; Admitting Provider Student in an Organized Health Care Education/Training Program; Emergency Provider Emergency Medicine; PCP Internal Medicine; Visit Provider Internal Medicine
PROC: 0QS606Z Reposition Right Upper Femur with Intramedullary Internal Fixation Device, Open Approach (ICD-10-PCS; CPT 27245; principal; 2022-04-19 12:45)
DX: S72.111A Displaced fracture of greater trochanter of right femur, initial encounter for closed fracture (principal); C79.51 Secondary malignant neoplasm of bone; W01.0XXA Fall on same level from slipping, tripping and stumbling without subsequent striking against object, initial encounter; C61 Malignant neoplasm of prostate; Z86.718 Personal history of other venous thrombosis and embolism; I48.91 Unspecified atrial fibrillation; Z79.01 Long term (current) use of anticoagulants; G62.9 Polyneuropathy, unspecified; Z87.891 Personal history of nicotine dependence; D64.9 Anemia, unspecified
CPT/HCPCS: 36415; 70450; 71045; 72125; 72192; 73502; 73551; 73630; 76000; 80048; 80053; 80061; 81003; 82607; 82746; 83036; 83540; 83550; 83735; 84100; 84145; 84443; 85025; 86850; 86900; 87426; 93005; 93971; 94664; 96374; 96375; 96376; 97161; 97167; 97530; 97535; 99285; C1713; J0690; J1100; J1720; J1885; J2270; J2405; J2704; J3010; J7030; J7512

== ENCOUNTER 2022-04-29 11:23 | Inpatient (IN) | payer MEDICARE, BC, SELFPAY ==
[2022-04-29 11:28] VITALS: PULSE 90; RESP 16; O2SAT 95; BMI 21.0
--- NOTE | 2022-04-29 11:36 | XR_ITS ---
WS: [id number] XR femur RT min 2V* [id number] REASON FOR EXAM: fall FINDINGS: From the intertrochanteric fracture site to the knee joint the right femur is intact without fracture . The long intramedullary addison is unchanged in position. XR/XR femur RT min 2V* [id number] IMPRESSION: No acute abnormality of the right femur.
--- NOTE | 2022-04-29 11:36 | XR_ITS ---
WS: [id number] XR hip RT 2-3V wo/w pel* [id number] REASON FOR EXAM: fall FINDINGS: Long intramedullary addison and large femoral neck nail fixation of intertrochanteric fracture 04/18/2022. Surgical appliances and bony fragments appear unchanged compared to the intraoperative examination of the right hip 04/19/2022. Acetabulum and adjacent bony pelvis is intact. XR/XR hip RT 2-3V wo/w pel* [id number] IMPRESSION: Recent fixation of intertrochanteric fracture. No new fracture identified.
--- NOTE | 2022-04-29 11:37 | W.ED.FALL ---
HPI - Fall General: Chief Complaint: Fall Stated Complaint: FALL LEG PAIN Time Seen by Provider: 04/29/22 11:25 Source: patient and EMS Mode of arrival: EMS Limitations: no limitations History of Present Illness: 86-year-old male who is here from local skilled nursing. Patient had a ground-level fall he states he fell onto his right side he has right hip and leg pain from his fall. He denies hitting his head denies any other injuries he rates his pain a 4 out of 10 is worse with movement improved with rest. Associated symptoms-after fall: Denies abdominal pain, chest pain or headache(s) Review of Systems Const: Denies: fever(s), chills, body aches or change in appetite Eyes: Denies: blurry vision or eye discomfort ENMT: Denies: throat pain or dental pain Card: Denies: chest pain Resp: Denies: dyspnea GI: Denies: abdominal pain, nausea, vomiting or diarrhea : Denies: dysuria Musc: Reports: extremity pain Skin/Breast: Denies: rash Neuro: Denies: headache(s) Psych: Denies: depression [place]/Lymph: Denies: easy bruising All/Imm: Denies: urticaria PFSH ED PFSH: Medical History Adenocarcinoma of prostate Anemia C. difficile colitis Closed intertrochanteric fracture of right hip DVT (deep venous thrombosis) Fall Frailty syndrome in geriatric patient Malignant neoplasm of prostate Mediastinal adenopathy (Unknown) Mediastinal lymphadenopathy Prostate cancer Secondary malignant neoplasm of bone Surgical History H/O neck surgery History of appendectomy Status post open reduction with internal fixation of fracture Family History Other Cancer Stroke Social History Smoking and tobacco status: former smoker Quit status (tobacco): has quit using tobacco Year quit tobacco: 1970 - 1PPD x 5 Years Second hand smoke exposure: No Alcohol intake: former Lives independently: Yes Household members: spouse Marital status: Current occupational status: retired History of recent travel: No Current gender identity: Male Physical Exam Const: COMMON NORMALS: no acute distress, patient oriented x3 and healthy appearing HENMT: COMMON NORMALS: normocephalic and atraumatic HEAD & SCALP: normocephalic and atraumatic Eye: COMMON NORMALS: Equal, round and reactive pupils present and EOMs intact bilaterally PUPIL: Yes Equal, round and reactive pupils present Neck/C-Spine: COMMON NORMALS: full ROM and supple Chest: COMMONS NORMALS: normal inspection of the chest and normal palpation of entire chest wall Resp: COMMON NORMALS: normal respiratory effort, No retractions, No use of accessory muscles and clear to auscultation bilaterally AUSCULTATION: clear to auscultation bilaterally Cardio: COMMON NORMALS: regular rate, regular rhythm and No murmurs present (Cardio) RATE: regular rate RHYTHM: regular rhythm GI: COMMON NORMALS: Normal to inspection, nondistended, normoactive bowel sounds present, Soft to palpation, non-tender and no masses PALPATION: Yes Soft to palpation Extremity: NARRATIVE EXTREMITY EXAM: Slight tenderness over right lateral upper leg and hip no obvious deformities distal pulses intact he does have full range of motion without pain. Neuro: COMMON NORMALS: patient oriented x3, moves all extremities and no focal motor deficits Psych: COMMON NORMALS: mental status grossly normal, Normal thought process present and cooperative THOUGHT PROCESS: Normal thought process present Skin: COMMON NORMALS: no rashes or lesions noted and no wounds GENERAL SKIN EXAM: no rashes or lesions noted Course Vital Signs: Vital signs: Vital Signs Pulse Rate 90 04/29/22 11:28 Respiratory Rate 16 04/29/22 11:28 Pulse Oximetry 95 04/29/22 11:28 MDM - Fall Medical Decision Making Patient presents here with leg pain after a fall he has no signs of fracture is able to fully range his leg he is stable for discharge he is to follow-up with PCP and return if worsening he has no signs of any head injuries. Lab Data Radiology Impressions Femur X-Ray 04/29/22 11:36 IMPRESSION: No acute abnormality of the right femur. Hip/Pelvis X-Ray 04/29/22 11:36 IMPRESSION: Recent fixation of intertrochanteric fracture. No new fracture identified. Discharge Plan Discharge Patient Disposition: Home Clinical Impression: Leg pain, right, Fall Condition: Stable Prescriptions: No Action ibuprofen 200 mg capsule 600 mg PO Q6H PRN (Reason: Pain) multivitamin Tablet 1 tab PO QAM tamsulosin 0.4 mg capsule 0.4 mg PO DAILY Qty: 30 5RF Eliquis 2.5 mg tablet 2.5 mg PO BID Qty: 180 3RF Rx Instructions: 340b please cyanocobalamin (vitamin B-12) [Vitamin B-12] 500 mcg Tablet 500 mcg PO DAILY Qty: 0 prednisone 10 mg tablet 10 mg PO QAM lansoprazole 30 mg capsule,delayed release(DR/EC) 30 mg PO DAILY oxycodone 5 mg Tablet 5 mg PO Q4H PRN (Reason: Moderate Pain) 14 Days Qty: 30 0RF cyclobenzaprine 10 mg Tablet 5 mg PO BID PRN (Reason: Muscle Spasms) 14 Days Qty: 30 0RF docusate sodium 100 mg tablet 100 mg PO BID Qty: 30 0RF Discharge Orders: Discharge ED (Routine); Ordered 04/29/22 Ordered By: Suzy Bergman Referrals: Anatoly Ochoa MD [Primary Care Provider] - Discharge Diet: Advance as tolerated Discharge Activity: Resume usual activity Patient Instructions: Leg Pain (ED) Coding Level of Care Code ED [employer] Fwd Exam Comprehensive
--- NOTE | 2022-04-29 12:08 | PC.NURSE ---
REPORT CALLED TO LISETH ZUNIGA [facility].
--- NOTE | 2022-04-29 12:09 | CT_ITS ---
WS: [id number] CT HEAD TECHNIQUE: Noncontrast CT of the head obtained from the skullbase to the vertex. CLINICAL INFORMATION: fall COMPARISON: April 17, 2022 DLP: 1351.[address] scans at [facility] use at least one of these dose optimization techniques: automated e xposure control; mA and/or kV adjustment per patient size (includes targeted exams where dose is matc hed to clinical indication); or iterative reconstruction. FINDINGS: No evidence of intracranial hemorrhage. Interval development of a low-attenuation presumably subacute infarct in the LEFT inferior frontal lobe extending to the operculum. This measures approximately 2. 8 x 2.6 x 3.6 cm AP x transverse x craniocaudal. No associated intraparenchymal hemorrhage. Minimal a ssociated mass effect on the LEFT frontal horn. No midline shift or hydrocephalus. Findings are new s karis April 17, 2022. No other significant interval changes. Mild small vessel changes with mild parenchymal volume loss. M astoid air cells are well aerated. Paranasal sinuses are well aerated. Trace mucosal thickening ethmo id air cells. CT/CT head wo con* [id number] IMPRESSION: 1. Interval development of low-attenuation presumably subacute infarct in the LEFT inferior frontal lobe extending to the operculum. Mild associated mass eff ect on the LEFT frontal horn. No midline shift. No associated hemorrhage. 2. Area of ischemia measures approximately 2.8 x 2.6 x 3.6 cm AP x transverse x craniocaudal. 3. No other significant changes compared to previous. Message LEFT for Suzy Bergman MD at 04/29/2022 1:14 PM.
--- NOTE | 2022-04-29 13:29 | ECG_ITS ---
[facility] Test Date: 2022-04-29 Pat Name: Oli Aragon Department: Room: Gender: Male [employer]: : [id number] Requested By: Suzy Bergman Order Number: [id number] Radha MD: María Elena Xiao M.D. Measurements Intervals [place] Rate: 69 P: 63 DC: 176 QRS: -81 QRSD: 141 T: 53 QT: 428 QTc: 460 Interpretive Statements SINUS RHYTHM RIGHT BUNDLE BRANCH BLOCK [120+ ms QRS DURATION, UPRIGHT V1, 40+ ms S IN I/aVL/V4/V5/V6] LEFT ANTERIOR FASCICULAR BLOCK [QRS AXIS <= -45, QR IN I, RS IN II] POSSIBLE SEPTAL MYOCARDIAL INFARCTION , PROBABLY OLD [30 ms Q WAVE IN V1/V2] Compared to ECG 04/17/2022 15:53:22 No significant changes Electronically Signed On 04-29-2022 18:38:37 CDT by María Elena Xiao M.D. [email or web address]
--- NOTE | 2022-04-29 13:42 | PC.PHAR ---
pt is from [facility] NURSE AT [facility] STATES PT HAD ALL AM MEDS TODAY-PTS FAMILY STATES THEY WOULD LIKE THE PT NOT TO HAVE ANY NARCOTICS PT STATES SHE WILL TELL THE DR WHEN HE COMES BACK INTO THE ROOM ALSO
[2022-04-29 14:15] VITALS: BP 143/80; PULSE 85; RESP 22; O2SAT 96
[2022-04-29 14:20] LABS: Basophils % 0.3 %; Eosinophils % 0.2 %; Hematocrit 34.1 % (42.0-52.0); Hemoglobin 11.1 g/dL (11.7-16.6); Lymphocytes # 0.6 10^3/uL (0.8-4.8); Lymphocytes % 9.1 %; Mean Corpuscular HGB Conc 32.6 g/dL (30.0-36.0); Mean Corpuscular Hemoglobin 33.1 pg (28.0-34.0); Mean Corpuscular Volume 101.8 fl (80-94); Mean Platelet Volume 9.4 fL (7.4-10.4); Monocytes # 0.4 10^3/uL (0.2-0.9); Monocytes % 5.8 %; Neutrophils # 5.18 10^3/uL (1.8-7.7); Neutrophils % 84.1 %; Nucleated Red Blood Cells % 0 %; Platelet Count 330 10^3/cmm (130-400); Red Blood Count 3.35 10^6/uL (4.1-5.3); Red Cell Distribution Width 13.2 % (12.1-15.1); White Blood Count 6.2 10^3/uL (4.0-10.0)
[2022-04-29 14:34] LABS: INR 1.04 (0.8-1.2)
[2022-04-29 15:04] VITALS: BMI 21.2
[2022-04-29 15:04] LABS: Alanine Aminotransferase 12 U/L (0-41); Albumin Level 3.7 g/dL (3.5-5.2); Alkaline Phosphatase 137 IU/L (40-130); Anion Gap 12.9 (5-19); Aspartate Amino Transferase 16 U/L (0-40); Blood Urea Nitrogen 13 mg/dL (8-23); Calcium 9.1 mg/dL (8.5-10.5); Carbon Dioxide 26 mmol/L (22-29); Chloride 100 mmol/L (98-107); Globulin 2.7 g/dL (1.3-4.6); Glucose 131 mg/dL (65-115); Osmolality Calculated 282 mOsm/kg (285-295); Potassium 3.9 mmol/L (3.5-5.1); Sodium 135 mmol/L (136-145); Total Bilirubin 0.5 mg/dL (0.15-1.2); Total Protein 6.4 g/dL (6.6-8.7)
--- NOTE | 2022-04-29 18:52 | P.HP_ITS ---
Providers/Chief Complaint Admitting Physician: Mira Moore MD Primary Care Provider: Anatoly Ochoa MD Chief Complaint: FALL LEG PAIN History of Present Illness Oli Aragon is a 86 year old male ?with past medical history of prostate cancer, right leg DVT, atrial fibrillation on chronic anticoagulation with Eliquis recently admitted here between April 17 to April 21 after sustaining a mechanical fall. He had an intertrochanteric fracture of the right hip and underwent open reduction internal fixation with an intramedullary device. He was discharged to SNF. He is brought to the emergency room today again with a ground-level fall with right hip and leg pain. X-rays performed in the ER were without any fractures or dislocations. He was initially planned to be discharg ed, however family at the time then stated that patient had been acting differently at the group home. They report that 1 to 2 days after arriving at the group home he started to have memory disturbances. He would be confused with his kids names, forgot who would have visited him etc. CT of the head was performed which showed development of a low-attenuation subacute infarct in the left inferior frontal lobe with mild associated mass-effect on the frontal horn. There was no midline shift or associated hemorrhage. Area of ischemia was noted to be 2.8 x 2.6 x 3.6 cm[address] A comparative head CT on April 17 was normal. Review of Systems General: Reports: 10 or more systems reviewed and unremarkable except in HPI and below Const: Denies: fever(s), chills or body aches Eyes: Denies: change in vision, blurry vision or photophobia ENMT: Reports: hoarseness; Denies: throat pain, enlarged tonsils, odynophagia or nasal congestion Card: Denies: chest pain, palpitations, irregular heart rhythm, edema, swelling of feet/ankles, lightheadedness, pre-syncope, dyspnea on exertion or orthopnea Resp: Denies: dyspnea, productive cough, non-productive cough, wheezing, stridor, pain on inspiration, change in phlegm color, hemoptysis or chest congestion GI: Denies: abdominal pain, nausea, vomiting, hematemesis, coffee ground emesis, dysphagia, heartburn, diarrhea, constipation, GI cramping, change in stool character, hematochezia or melena : Denies: flank pain, dysuria, urinary frequency, urinary urgency, urinary hesitancy or hematuria Musc: Denies: neck pain, back pain, extremity pain, joint swelling, joint warmth or deformity Neuro: Denies: headache(s), numbness in extremities, weakness in extremities, sensory changes, difficulty walking, frequent falls, dizziness, vertigo, behavioral changes, Slurred speech present or seizure-like activity Psych: Denies: anxiety, depression, suicidal ideation or homicidal ideation Endo: Denies: polyuria, polydipsia, tired all the time, cold intolerance or hot flashes [place]in/Lymph: Denies: easy bruising or easy bleeding Medications/Allergies Home Medications Medication Instructions Recorded Confirmed Last Taken Type prednisone 10 mg tablet 10 mg PO DAILY@06/11/21 04/29/22 04/29/22 History cyanocobalamin (vitamin B-12) 500 500 mcg PO DAILY@07 ##0 09/09/21 04/29/22 04/29/22 History mcg tablet (Vitamin B-12) multivitamin 1 tab PO DAILY@02/23/22 04/29/22 04/29/22 History lansoprazole 30 mg capsule,delayed 30 mg PO DAILY@04/17/22 04/29/22 04/29/22 History release acetaminophen 325 mg tablet 650 mg PO Q4H PRN Pain 04/29/22 04/29/22 Unknown History (Tylenol) amino acids-protein hydrolysate 15 See Rx Instructions .Route .COMPLEX 04/29/22 04/29/22 04/29/22 History gram-101 kcal/30 mL oral liquid apixaban 2.5 mg tablet (Eliquis) 2.5 mg PO BID@,04/29/22 04/29/22 04/29/22 History bisacodyl 10 mg rectal suppository 10 mg CA DAILY PRN Constipation 04/29/22 04/29/22 Unknown History (Dulcolax (bisacodyl)) cyclobenzaprine 10 mg tablet 5 mg PO Q12H PRN Muscle Spasms 04/29/22 04/29/22 Unknown History docusate sodium 100 mg tablet 100 mg PO BID@07,16 04/29/22 04/29/22 04/29/22 History magnesium hydroxide 400 mg/5 mL 30 ml PO Q24H PRN Constipation 04/29/22 04/29/22 Unknown History oral suspension (Milk of Magnesia) oxycodone 5 mg tablet 2.5 - 5 mg PO Q4H PRN Moderate Pain 04/29/22 04/29/22 04/25/22 History sodium phosphates 19 gram-7 118 ml CA DAILY PRN Constipation 04/29/22 04/29/22 Unknown History gram/118 mL enema (Fleet Enema) tamsulosin 0.4 mg capsule 0.4 mg PO DAILY@07 04/29/22 04/29/22 04/29/22 History Allergies Allergy/AdvReac Type Severity Reaction Status Date / Time No Known Allergies Allergy Verified 04/13/22 09:19 PFSH Acute PFSH: Medical History Adenocarcinoma of prostate Anemia C. difficile colitis Closed intertrochanteric fracture of right hip DVT (deep venous thrombosis) Fall Frailty syndrome in geriatric patient Malignant neoplasm of prostate Mediastinal adenopathy (Unknown) Mediastinal lymphadenopathy Prostate cancer Secondary malignant neoplasm of bone Surgical History H/O neck surgery History of appendectomy Status post open reduction with internal fixation of fracture Family History Other Cancer Stroke Social History Smoking and tobacco status: former smoker Quit status (tobacco): has quit using tobacco Year quit tobacco: 1970 - 1PPD x 5 Years Second hand smoke exposure: No Alcohol intake: former Lives independently: Yes Household members: spouse Marital status: Current occupational status: retired History of recent travel: No Current gender identity: Male Vitals/I&O/Wt Last Vital Signs Pulse 85 04/29/22 14:15 Resp 22 H 04/29/22 14:15 BP 143/80 04/29/22 14:15 Pulse Ox 96 04/29/22 14:15 O2 Del Method 04/29/22 15:04 Weight last 48 hrs Weight 77.111 kg Weight 78.471 kg Physical Exam Narrative: General: No acute distress, AO x3 HEENT: PERRLA, pupils bilaterally equal and reactive, pallors not present Chest: Normal vesicular breath sounds, no added sounds, equal good air entry bilaterally CVS: S1-S2 regular, no murmurs, no tachycardia, no gallops, no rubs Abdomen: Soft, nontender, no organomegaly, bowel sounds present Neuro: No focal deficits, no facial deformity, AO x3, power 5/5 in all limbs Extremities: Superficial bruising over upper thigh at site of recent surgery Data : 04/29/22 14:06 04/29/22 14:06 Other Labs: Radiology Impressions Femur X-Ray 04/29/22 11:36 IMPRESSION: No acute abnormality of the right femur. Hip/Pelvis X-Ray 04/29/22 11:36 IMPRESSION: Recent fixation of intertrochanteric fracture. No new fracture identified. Head CT 04/29/22 12:09 IMPRESSION: 1. Interval development of low-attenuation presumably subacute infarct in the LEFT inferior frontal lobe extending to the operculum. Mild associated mass effect on the LEFT frontal horn. No midline shift. No associated hemorrhage. 2. Area of ischemia measures approximately 2.8 x 2.6 x 3.6 cm AP x transverse x craniocaudal. 3. No other significant changes compared to previous. Message LEFT for Suzy Bergman MD at 04/29/2022 1:14 PM. Laboratory Results WBC 6.2 10^3/uL (4.0-10.0) 04/29/22 14:06 RBC 3.35 10^6/uL (4.1-5.3) L 04/29/22 14:06 Hgb 11.1 g/dL (11.7-16.6) L 04/29/22 14:06 Hct 34.1 % (42.0-52.0) L 04/29/22 14:06 MCV 101.8 fl (80-94) H 04/29/22 14:06 MCH 33.1 pg (28.0-34.0) 04/29/22 14:06 MCHC 32.6 g/dL (30.0-36.0) 04/29/22 14:06 RDW 13.2 % (12.1-15.1) 04/29/22 14:06 Plt Count 330 10^3/cmm (130-400) 04/29/22 14:06 MPV 9.4 fL (7.4-10.4) 04/29/22 14:06 Neut % (Auto) 84.1 % 04/29/22 14:06 Lymph % (Auto) 9.1 % 04/29/22 14:06 [place] % (Auto) 5.8 % 04/29/22 14:06 Eos % (Auto) 0.2 % 04/29/22 14:06 Baso % (Auto) 0.3 % 04/29/22 14:06 Neut # (Auto) 5.18 10^3/uL (1.8-7.7) 04/29/22 14:06 Lymph # (Auto) 0.6 10^3/uL (0.8-4.8) L 04/29/22 14:06 [place] # (Auto) 0.4 10^3/uL (0.2-0.9) 04/29/22 14:06 Eos # (Auto) 0.0 10^3/uL (0.0-0.8) 04/29/22 14:06 Baso # (Auto) 0.0 10^3/uL (0.0-0.1) 04/29/22 14:06 Nucleated RBC % (auto) 0 % 04/29/22 14:06 Nucleated RBCs # 0.0 /100WBC 04/29/22 14:06 PT 14.00 SECONDS (12.1-14.9) 04/29/22 14:06 INR 1.04 (0.8-1.2) 04/29/22 14:06 Sodium 135 mmol/L (136-145) L 04/29/22 14:06 Potassium 3.9 mmol/L (3.5-5.1) 04/29/22 14:06 Chloride 100 mmol/L (98-107) 04/29/22 14:06 Carbon Dioxide 26 mmol/L (22-29) 04/29/22 14:06 Anion Gap 12.9 (5-19) 04/29/22 14:06 BUN 13 mg/dL (8-23) 04/29/22 14:06 Creatinine 0.7 mg/dL (0.7-1.2) 04/29/22 14:06 GFR Calculation Not Reportable 04/29/22 14:06 Glucose 131 mg/dL (65-115) H 04/29/22 14:06 Calculated Osmolality 282 mOsm/kg (285-295) L 04/29/22 14:06 Calcium 9.1 mg/dL (8.5-10.5) 04/29/22 14:06 Total Bilirubin 0.5 mg/dL (0.15-1.2) 04/29/22 14:06 AST 16 U/L (0-40) 04/29/22 14:06 ALT 12 U/L (0-41) 04/29/22 14:06 Alkaline Phosphatase 137 IU/L (40-130) H 04/29/22 14:06 Total Protein 6.4 g/dL (6.6-8.7) L 04/29/22 14:06 Albumin 3.7 g/dL (3.5-5.2) 04/29/22 14:06 Globulin 2.7 g/dL (1.3-4.6) 04/29/22 14:06 A&P Assessment and plan (1) Fall: Status: Acute (2) Stroke: Patient noted to have a subacute infarct as noted above in HPI. With surrounding mass-effect. He does not demonstrate any focal neurological deficits at this present time. Family reports that his deficits have mainly been with memory, and some episodic confusion. We will admit patient to MedSurg and observation. Performed carotid Doppler and echocardiogram, monitor on telemetry. He is not a current candidate for tPA as unknown timeline of stroke presentation. Will additionally hold his Eliquis to avoid risk of hemorrhagic transformation of the stroke. Ensure hydration, p.o. intake. PT OT eval. Status: Acute Attestations Medical Necessity Statement*: Anticipate less than 2 midnight stay for above care Coding Level of Care Code Acute Retail Wireless Sales Representative for [facility] Fwd Diagnoses Fall W19.XXXA Stroke I63.9
[2022-04-29 20:17] VITALS: BP 143/77; PULSE 77; RESP 14; TEMP 37.2; O2SAT 93
[2022-04-29 20:47] VITALS: BP 139/77; PULSE 72; O2SAT 93
[2022-04-29] MEDS: atorvastatin 40 mg Tablet 20 MG PO (21:17)
[2022-04-29 22:00] VITALS: PULSE 75
[2022-04-29 23:47] VITALS: BP 129/85; PULSE 77; RESP 15; TEMP 36.7; O2SAT 99
[2022-04-30] VITALS (10 sets, daily range): BP systolic 108–137; BP diastolic 69–81; PULSE 60–94; RESP 12–16; TEMP 36.3–37.3; O2SAT 91–100
[2022-04-30 05:11] LABS: Estmated Average Glucose 88; Hemoglobin A1C 4.7 % (4.0-6.0)
[2022-04-30 05:26] LABS: Cholesterol 150 mg/dL (0-200); HDL Cholesterol 50 mg/dL (60-100); LDL Cholesterol Calculated 86 mg/dL (50-129); LDL HDL Ratio 1.72 RATIO (0.00-3.22); Triglycerides 69 mg/dL (0-150)
--- NOTE | 2022-04-30 06:00 | USCV_ITS ---
Oli Aragon Age: 86 Gender: M : 1935 Exam Date: 04/30/2022 01:51 Ordering Phys: Mira Moore MD Technologist: Adan Meng Exam Location: [facility] [place] Indication: ischemic stroke BP: 129 / 80 HR: 71 Rhythm: Sinus Technical Quality: Adequate MEASUREMENTS (Male / Female) Normal Values 2D ECHO LV Diastolic Diameter PLAX 3.8 cm 4.2 - 5.9 / 3.9 - 5.3 cm LV Systolic Diameter PLAX 2.7 cm IVS Diastolic Thickness 2.1 cm 0.6 - 1.0 / 0.6 - 0.9 cm IVS Systolic Thickness 2.4 cm LVPW Diastolic Thickness 1.7 cm 0.6 - 1.0 / 0.6 - 0.9 cm LVPW Systolic Thickness 2.6 cm LVOT Diameter 2.3 cm LV Ejection Fraction 2D Teich 49.8 % LV Ejection Fraction MOD 2C 56.5 % LV Ejection Fraction 2C AL 62.1 % LA Diameter 3.7 cm LA Width 5.2 cm LA Height 4.5 cm RA Width 3.9 cm RA Height 4.9 cm Aorta at Sinotubular Diameter 3.2 cm IVC Diameter 1.8 cm M-MODE Aortic Annulus Diameter 3.4 cm LA Ao Ratio MM 1.2 MV E Point Septal Separation 1.4 cm DOPPLER AV Peak Velocity 130.6 cm/s LVOT Peak Velocity 87.0 cm/s AV Area Cont Eq vti 3.1 cm squared AV Area Cont Eq pk 2.7 cm squared MV Area PHT 5.0 cm squared Mitral E to A Ratio 0.7 MV E' Velocity 28.5 cm/s Mitral E to MV E' Ratio 4.8 Mitral E to LV E' Lateral Ratio 3.8 Mitral E to LV E' Septal Ratio 6.6 TR Peak Velocity 102.5 cm/s TR Peak Gradient 4.2 mmHg TR Mean Velocity 53.8 cm/s TR Mean Gradient 1.5 mmHg TR Velocity Time Integral 18.4 cm Right Atrial Pressure 3.0 mmHg Pulmonary Artery Systolic Pressu 7.2 mmHg PV Peak Velocity 106.0 cm/s FINDINGS Left Ventricle Normal left ventricular size. LV systolic function is normal with EF of 55-60%. No regional wall motion abnormalities. Grade 1 diastolic dysfunction Right Ventricle The right ventricle is normal in size and function. Right Atrium The right atrium is normal in size. Left Atrium The left atrium is normal in size. Mitral Valve Structurally normal mitral valve without significant stenosis or prolapse. There is trace mitral regurgitation. Aortic Valve Structurally normal aortic valve without significant sclerosis or stenosis. There is trace aortic regurgitation. Tricuspid Valve Trace tricuspid regurgitation. Insufficient TR jet to calculate RVSP. Pulmonic Valve Not well-visualized Pericardium Normal pericardium without effusion. Aorta Normal ascending aorta dimension. IVC CONCLUSIONS LV systolic function is normal with EF of 55 to 60%. Grade 1 diastolic dysfunction. Trace mitral regurgitation. Trace aortic regurgitation. Trace tricuspid regurgitation. Compared to prior echocardiogram from 2020, no significant changes are seen. Fredis Franklin MD (Electronically Signed) Final Date: 30 April 2022 12:53 S
--- NOTE | 2022-04-30 06:00 | USR_ITS ---
PROCEDURE INFORMATION: Exam: US Duplex Bilateral Extracranial Arteries, Carotid Arteries Exam date and time: 04/30/2022 1:29 AM Age: 86 years old Clinical indication: Altered mental status/memory loss; Confusion or disorientation; Additional info: Ischemic stroke TECHNIQUE: Imaging protocol: Real-time Duplex ultrasound scan of the bilateral carotid and vertebral arteries combining galloway scale, color Doppler and spectral waveform analysis. Bilateral exam. Exam focused on the carotid arteries. Other technique: Any reported ICA stenoses indirectly reference the distal internal carotid diameter as the denominator for the stenosis measurement, utilizing consensus panel criteria. COMPARISON: CT head wo con* [id number] 04/29/2022 12:45 PM FINDINGS: RIGHT: Minimal bulb plaque. ICA PSV: 57.3 cm/sec CCA PSV: 68.4 cm/sec ICA/CCA ratio: 0.84 Vertebral flow is antegrade. The visualized subclavian artery showed normal color Doppler flow. External carotid artery is patent. LEFT: Minimal bulb plaque. ICA PSV: 77.8 cm/sec CCA PSV: 63.2 cm/sec ICA/CCA ratio: 1.23 Vertebral flow is antegrade. The visualized subclavian artery showed normal color Doppler flow. External carotid artery is patent. US/CV carotid duplex BI* [id number] IMPRESSION: 1. Right ICA < 50% stenosis by Carotid Stenosis Reference using SRU criteria. 2. Left ICA < 50% stenosis by Carotid Stenosis Reference using SRU criteria. 3. Antegrade flow in bilateral vertebral arteries. REFERENCES: SRU CRITERIA. The degree of internal carotid artery stenosis is based on criteria defined by the Society of Radiologists in Ultrasound (SRU). Normal is no stenosis. Mild is less than 50% stenosis. Moderate is 50-69% stenosis. Severe is greater than 69% stenosis to near occlusion. Near occlusion is a markedly narrowed lumen. Total occlusion is no detectable patent lumen.
[2022-04-30] MEDS: pantoprazole DR 40 mg Tablet PO (06:21)
[2022-04-30] MEDS: tamsulosin 0.4 mg Capsule PO (06:21)
[2022-04-30] MEDS: aspirin 81 mg EC Tablet PO (09:13)
[2022-04-30] MEDS: oxyCODONE 5 mg IR Tab/Cap 2.5 MG PO (10:27)
[2022-04-30 11:46] LABS: SARS Covid-2 Antigen Negative (Negative)
[2022-04-30] MEDS: acetaminophen 500 mg Tablet 650 MG PO (11:59)
--- NOTE | 2022-04-30 14:49 | CT_ITS ---
WS: [id number] CT HEAD NONCONTRAST HISTORY: confusion TECHNIQUE: Contiguous axial imaging performed through the brain in 2.5 mm imaging. Bone and soft tiss ue windows. Sagittal and coronal reformats reviewed. All CT scans at [facility] use at least one of these dose optimization techniques: automated exposure control; mA and/or kV adjustment per pa tient size (includes targeted exams where dose is matched to clinical indication); or iterative recon struction. DLP: 1082.88 mGy.cm COMPARISON: 04/29/2022 Area of decreased attenuation centered in the LEFT frontal lobe is reidentified on today's examinatio n and similar to the prior study of 04/29/2022. Infarct measures 2.9 x 3.1 x 3.7 cm. There is no hemor rhagic transformation. There is mild extension to the insular ribbon of the LEFT temporal lobe. There is very mild mass effect upon the adjacent brain. Additional mild small vessel ischemic disease. Mild bilateral atrophy. Ventricles: Normal. No inferior displacement of cerebellar tonsils. Paranasal sinuses: As visualized are clear. Mastoid air cells: Well pneumatized. Calvarium and scalp: Skull is intact with no soft tissue edema or swelling. CT/CT head wo con* [id number] IMPRESSION: 1. No acute interval change of the subacute infarct involving the LEFT frontal lobe with extension into the insular ribbon. No hemorrhagic transformation. 2. Otherwise mild atrophy and small vessel ischemic disease.
--- NOTE | 2022-04-30 15:41 | PM.PN ---
Subjective Subjective: Patient is noted to be more somnolent this afternoon compared to last evening. He wakes up to calling name and follows commands, however does not remember orientation questions such as his date of , age, or where he is at this time. He recognizes his family members at bedside but is unable to tell me his name. Pupils are bilaterally equal and normal reacting. This is a change when compared to previous exam. CT head has been ordered and pending. Vitals/I&O/Wt Last Vital Signs Temp 98.0 F 04/30/22 12:00 Pulse 60 04/30/22 12:00 Resp 16 04/30/22 12:00 BP 125/78 04/30/22 12:00 Pulse Ox 100 04/30/22 12:00 O2 Del Method 04/30/22 12:00 04/30/22 04/30/22 04/30/22 06:59 14:59 22:59 Intake Total 0 / 120 Output Total 0 / 0 Balance 0 / 120 Weight last 48 hrs Weight 77.111 kg Weight 78.471 kg Physical Exam Narrative: General: More somnolent compared to last evening. HEENT: PERRLA, pupils bilaterally equal and reactive, pallors not present Chest: Normal vesicular breath sounds, no added sounds, equal good air entry bilaterally CVS: S1-S2 regular, no murmurs, no tachycardia, no gallops, no rubs Abdomen: Soft, nontender, no organomegaly, bowel sounds present Neuro: Wakes up to calling name, follows commands to transportation engineer fingers, move bilateral upper and lower extremities. Does not move right lower extremity today, states that he has pain at his recent surgical site. Data : 04/29/22 14:06 04/29/22 14:06 A&P Assessment and plan (1) Fall: Status: Acute (2) Stroke: Patient noted to have a subacute infarct on CT With surrounding mass-effect. He has had a change in his mental status this afternoon. We will repeat CT of his head today to ensure there is no hemorrhagic transformation or worsening edema. Hold any further doses of oxycodone. We will use tramadol and NSAIDs instead for pain management. carotid Doppler with less than 50% stenosis bilaterally, normal echocardiogram, no events on telemetry. Continue to hold Eliquis Ensure hydration, p.o. intake. PT OT eval. Continue aspirin 81 mg p.o. daily and Lipitor. Status: Acute Attestations Medical Necessity Statement*: Changed to inpatient admission given change in mental status, repeating CT head and continued monitoring today. Coding Level of Care Code Acute Web Content & Social Media Manager for [facility] Diagnoses Fall W19.XXXA Stroke I63.9
[2022-04-30] MEDS: ketorolac 30 mg/mL INJ 15 MG IVP (16:08)
[2022-05-01] MEDS: ketorolac 30 mg/mL INJ 15 MG IVP (03:21)
[2022-05-01 04:00] VITALS: BP 135/72; PULSE 66; RESP 13; TEMP 36.8; O2SAT 93
[2022-05-01 06:00] VITALS: PULSE 65
[2022-05-01 07:43] VITALS: BP 125/75; PULSE 62; RESP 16; TEMP 36.8; O2SAT 92
[2022-05-01] MEDS: tamsulosin 0.4 mg Capsule PO (09:46)
[2022-05-01] MEDS: pantoprazole DR 40 mg Tablet PO (09:46)
[2022-05-01] MEDS: aspirin 81 mg EC Tablet PO (09:46)
--- NOTE | 2022-05-01 11:29 | PM.DCS ---
Discharge Providers Date of Admission: 04/30/22 15:40 Date of Discharge: May 01, 2022 Attending Provider at Admission: Mira Moore MD Attending Provider at Discharge: Mira Moore MD Primary Care Provider: Anatoly Ochoa MD Diagnoses at Discharge Discharge Diagnosis (1) Fall: Status: Acute (2) Stroke: Status: Acute Reason for Visit Reason for Visit: FALL LEG PAIN Hospital Course Hospital Course Oli Aragon is a 86 year old male ?with past medical history of prostate cancer, right leg DVT, atrial fibrillation on chronic anticoagulation with Eliquis recently admitted here between April 17 to April 21 after sustaining a mechanical fall.? He had an intertrochanteric fracture of the right hip and underwent open reduction internal fixation with an intramedullary device.? He was discharged to SNF.? He is brought to the emergency room today again with a ground-level fall with right hip and leg pain.? X-rays performed in the ER were without any fractures or dislocations.? He was initially planned to be discharged, however family at the time then stated that patient had been acting differently at the residential.? They report that 1 to 2 days after arriving at the residential he started to have memory disturbances.? He would be confused with his kids names, forgot who would have visited him etc. ? CT of the head was performed which showed development of a low-attenuation subacute infarct in the left inferior frontal lobe with mild associated mass-effect on the frontal horn.? There was no midline shift or associated hemorrhage.? Area of ischemia was noted to be 2.8 x 2.6 x 3.6 cm.? A comparative head CT on April 17 was normal. He was admitted for stroke observation. On 04/30/2020 2 in the afternoon patient was noted to be more lethargic, would wake up and only answer questions regarding his name. He was oriented x1. A CT of the head was repeated which did not show any new changes or hemorrhagic transformation. His lethargy was likely related to oxycodone IR that he had received for his pain. Further doses of oxycodone were held. Pain control was switched to tramadol and Toradol patient. Patient has been awake alert with holding the opiates. This morning he is alert awake oriented x3, answering all questions, following all commands. Catheter Duplay showed less than 50% ICA stenosis bilaterally. Echocardiogram showed LVEF of 55 to 60% and grade 1 diastolic dysfunction. There was trace MR and trace AR, otherwise no overt valvular abnormalities were noted. His anticoagulation with Eliquis has been held to minimize risk of hemorrhagic transformation of his known stroke. Additionally per review of oncology notes from January 2022, it appears anticoagulation was planned to be discontinued in 3 months, timing of which falls now. He has been started on aspirin 81 mg p.o. daily. Recommend follow-up with heme-onc within the next 7 to 10 days to discuss if any further anticoagulation is warranted. Physical Exam Narrative: General: No acute distress, AO x1 HEENT: PERRLA, pupils bilaterally equal and reactive, pallors not present Chest: Normal vesicular breath sounds, no added sounds, equal good air entry bilaterally CVS: S1-S2 regular, no murmurs, no tachycardia, no gallops, no rubs Abdomen: Soft, nontender, no organomegaly, bowel sounds present Neuro: No focal deficits, no facial deformity, AO x3, power 5/5 in all limbs Extremities: Healthy surgical dressing present on the right hip, mild tenderness, soft no erythema. Discharge Data Studies Completed and Pending Completed Studies During Hospitalization Category Date Time Status CT head wo con* [id number] Stat Cat Scan 04/29/22 12:[address] head wo con* [id number] Stat Cat Scan 04/30/22 14:49 Completed XR femur RT min 2V* [id number] Stat Exams 04/29/22 11:36 Completed XR hip RT 2-3V wo/w pel* [id number] Stat Exams 04/29/22 11:36 Completed CV carotid duplex BI* [id number] Routine Ultrasound 04/30/22 06:00 Completed CV. echo complete* [id number] Routine Ultrasound 04/30/22 06:00 Completed Radiology Impressions Femur X-Ray 04/29/22 11:36 IMPRESSION: No acute abnormality of the right femur. Hip/Pelvis X-Ray 04/29/22 11:36 IMPRESSION: Recent fixation of intertrochanteric fracture. No new fracture identified. Carotid Doppler Study 04/30/22 06:00 IMPRESSION: 1. Right ICA < 50% stenosis by Carotid Stenosis Reference using SRU criteria. 2. Left ICA < 50% stenosis by Carotid Stenosis Reference using SRU criteria. 3. Antegrade flow in bilateral vertebral arteries. REFERENCES: SRU CRITERIA. The degree of internal carotid artery stenosis is based on criteria defined by the Society of Radiologists in Ultrasound (SRU). Normal is no stenosis. Mild is less than 50% stenosis. Moderate is 50-69% stenosis. Severe is greater than 69% stenosis to near occlusion. Near occlusion is a markedly narrowed lumen. Total occlusion is no detectable patent lumen. Head CT 04/30/22 14:49 IMPRESSION: 1. No acute interval change of the subacute infarct involving the LEFT frontal lobe with extension into the insular ribbon. No hemorrhagic transformation. 2. Otherwise mild atrophy and small vessel ischemic disease. Laboratory Results WBC 6.2 10^3/uL (4.0-10.0) 04/29/22 14:06 RBC 3.35 10^6/uL (4.1-5.3) L 04/29/22 14:06 Hgb 11.1 g/dL (11.7-16.6) L 04/29/22 14:06 Hct 34.1 % (42.0-52.0) L 04/29/22 14:06 MCV 101.8 fl (80-94) H 04/29/22 14:06 MCH 33.1 pg (28.0-34.0) 04/29/22 14:06 MCHC 32.6 g/dL (30.0-36.0) 04/29/22 14:06 RDW 13.2 % (12.1-15.1) 04/29/22 14:06 Plt Count 330 10^3/cmm (130-400) 04/29/22 14:06 MPV 9.4 fL (7.4-10.4) 04/29/22 14:06 Neut % (Auto) 84.1 % 04/29/22 14:06 Lymph % (Auto) 9.1 % 04/29/22 14:06 [place] % (Auto) 5.8 % 04/29/22 14:06 Eos % (Auto) 0.2 % 04/29/22 14:06 Baso % (Auto) 0.3 % 04/29/22 14:06 Neut # (Auto) 5.18 10^3/uL (1.8-7.7) 04/29/22 14:06 Lymph # (Auto) 0.6 10^3/uL (0.8-4.8) L 04/29/22 14:06 [place] # (Auto) 0.4 10^3/uL (0.2-0.9) 04/29/22 14:06 Eos # (Auto) 0.0 10^3/uL (0.0-0.8) 04/29/22 14:06 Baso # (Auto) 0.0 10^3/uL (0.0-0.1) 04/29/22 14:06 Nucleated RBC % (auto) 0 % 04/29/22 14:06 Nucleated RBCs # 0.0 /100WBC 04/29/22 14:06 PT 14.00 SECONDS (12.1-14.9) 04/29/22 14:06 INR 1.04 (0.8-1.2) 04/29/22 14:06 Sodium 135 mmol/L (136-145) L 04/29/22 14:06 Potassium 3.9 mmol/L (3.5-5.1) 04/29/22 14:06 Chloride 100 mmol/L (98-107) 04/29/22 14:06 Carbon Dioxide 26 mmol/L (22-29) 04/29/22 14:06 Anion Gap 12.9 (5-19) 04/29/22 14:06 BUN 13 mg/dL (8-23) 04/29/22 14:06 Creatinine 0.7 mg/dL (0.7-1.2) 04/29/22 14:06 GFR Calculation Not Reportable 04/29/22 14:06 Glucose 131 mg/dL (65-115) H 04/29/22 14:06 Estimat Average Glucose 88 04/30/22 04:38 Hemoglobin A1c 4.7 % (4.0-6.0) 04/30/22 04:38 Calculated Osmolality 282 mOsm/kg (285-295) L 04/29/22 14:06 Calcium 9.1 mg/dL (8.5-10.5) 04/29/22 14:06 Total Bilirubin 0.5 mg/dL (0.15-1.2) 04/29/22 14:06 AST 16 U/L (0-40) 04/29/22 14:06 ALT 12 U/L (0-41) 04/29/22 14:06 Alkaline Phosphatase 137 IU/L (40-130) H 04/29/22 14:06 Total Protein 6.4 g/dL (6.6-8.7) L 04/29/22 14:06 Albumin 3.7 g/dL (3.5-5.2) 04/29/22 14:06 Globulin 2.7 g/dL (1.3-4.6) 04/29/22 14:06 Triglycerides 69 mg/dL (0-150) 04/30/22 04:38 Cholesterol 150 mg/dL (0-200) 04/30/22 04:38 LDL Cholesterol, Calc 86 mg/dL (50-129) 04/30/22 04:38 HDL Cholesterol 50 mg/dL (60-100) L 04/30/22 04:38 LDL/HDL Ratio 1.72 RATIO (0.00-3.22) 04/30/22 04:38 Cholesterol/HDL Ratio 3.00 mg/dL (1.0-5.00) 04/30/22 04:38 SARS-CoV-2 Ag (Rapid) Negative (Negative) 04/30/22 11:00 Vitals Last Vital Signs Temp 98.2 F 05/01/22 07:43 Pulse 62 05/01/22 07:43 Resp 16 05/01/22 07:43 BP 125/75 05/01/22 07:43 Pulse Ox 92 05/01/22 07:43 O2 Del Method 05/01/22 07:43 Discharge Plan Discharge Patient Disposition: Xfer SNF Condition: Stable Prescriptions: New atorvastatin 40 mg Tablet 20 mg PO BEDTIME 30 Days Qty: 30 0RF aspirin 81 mg Tablet,Delayed Release (Dr/Ec) 81 mg PO DAILY 30 Days Qty: 30 0RF tramadol 50 mg Tablet 50 mg PO Q8H PRN (Reason: Moderate Pain) 15 Days Qty: 45 0RF Continued multivitamin Tablet 1 tab PO DAILY@07 cyanocobalamin (vitamin B-12) [Vitamin B-12] 500 mcg Tablet 500 mcg PO DAILY@07 Qty: 0 prednisone 10 mg tablet 10 mg PO DAILY@07 lansoprazole 30 mg capsule,delayed release(DR/EC) 30 mg PO DAILY@07 acetaminophen [Tylenol] 325 mg Tablet 650 mg PO Q4H PRN (Reason: Pain) Milk of Magnesia 400 mg/5 mL Suspension 30 ml PO Q24H PRN (Reason: Constipation) Dulcolax (bisacodyl) 10 mg Suppository 10 mg WI DAILY PRN (Reason: Constipation) Fleet Enema 19-7 gram/118 mL Enema 118 ml WI DAILY PRN (Reason: Constipation) amino acids-protein hydrolys 15-101 gram-kcal/30 mL Liquid See Rx Instructions .ROUTE .COMPLEX Rx Instructions: 30ml po bid@,16 cyclobenzaprine 10 mg tablet 5 mg PO Q12H PRN (Reason: Muscle Spasms) Rx Instructions: end date 05/06/22 tamsulosin 0.4 mg capsule 0.4 mg PO DAILY@07 docusate sodium 100 mg tablet 100 mg PO BID@,16 Discontinued oxycodone 5 mg tablet 2.5 - 5 mg PO Q4H PRN (Reason: Moderate Pain) Eliquis 2.5 mg tablet 2.5 mg PO BID@,16 Rx Instructions: 340b please Discharge Orders: Discharge Order (Routine); Ordered 05/01/22 Ordered By: Mira Moore Referrals: Anatoly Ochoa MD [Primary Care Provider] - Sae Davies MD [Staff Physician] - 7-10 days Discharge Diet: Advance as tolerated Discharge Activity: Resume usual activity Patient Instructions: Leg Pain (ED), Opioid Safety Discharge Attestations Time Spent in Discharge Care*: greater than 30 min Quality Metrics Clinical Quality Measures [ Cerebrovascular Accident { Contraindication to Antithrombotic: None; antithrombotic prescribed; Contraindication to Anticoagulation: Medical contraindication; Contraindication to Statin: None; Statin prescribed;}] Coding Level of Care Code Acute Chg FW IN note Diagnoses Fall W19.XXXA Stroke I63.9
[2022-05-01 11:46] VITALS: BP 128/75; PULSE 65; RESP 16; TEMP 36.7; O2SAT 95
== END 2022-05-01 14:42 | disposition skilled nursing facility (03) | DRG 65 ==
LOC: ER 13:17 → MEDSURG 14:18
PROVIDERS: Admitting Provider Student in an Organized Health Care Education/Training Program; Emergency Provider Emergency Medicine; PCP Internal Medicine; Visit Provider Student in an Organized Health Care Education/Training Program
DX: I63.9 Cerebral infarction, unspecified (principal); C79.51 Secondary malignant neoplasm of bone; R29.705 NIHSS score 5; S72.141D Displaced intertrochanteric fracture of right femur, subsequent encounter for closed fracture with routine healing; W18.30XD Fall on same level, unspecified, subsequent encounter; M79.604 Pain in right leg; W18.30XA Fall on same level, unspecified, initial encounter; Z98.890 Other specified postprocedural states; C61 Malignant neoplasm of prostate; Z86.718 Personal history of other venous thrombosis and embolism; I48.91 Unspecified atrial fibrillation; Z87.891 Personal history of nicotine dependence; R54 Age-related physical debility
CPT/HCPCS: 36415; 70450; 73502; 73552; 80053; 80061; 83036; 85025; 85610; 87426; 92523; 92610; 93005; 93306; 93880; 97161; 97165; 97530; 99214; 99285; G0378; J1885

== ENCOUNTER 2022-05-04 06:00 | Oncology outpatient (recurring) (ONCR) | payer MEDICARE, BC, SELFPAY | END 2022-05-19 23:59 | disposition home or self-care (01) | PROVIDERS: PCP Internal Medicine; Visit Provider Internal Medicine Hematology & Oncology | DX: C61 Malignant neoplasm of prostate (principal) | CPT/HCPCS: 99214 ==

== ENCOUNTER → 2022-06-01 10:18 | Outpatient (BNVA) | payer MEDICARE, BC, SELFPAY | PROVIDERS: PCP Internal Medicine; Visit Provider Orthopaedic Surgery | DX: S72.141A Displaced intertrochanteric fracture of right femur, initial encounter for closed fracture (principal); X58.XXXA Exposure to other specified factors, initial encounter | CPT/HCPCS: 73502; 99024 ==

== ENCOUNTER 2022-06-11 11:00 | Oncology outpatient (recurring) (ONCR) | payer MEDICARE, BC, SELFPAY ==
[2022-06-04 09:30] LABS: Basophils % 0.3 %; Eosinophils # 0.1 10^3/uL (0.0-0.8); Eosinophils % 1.9 %; Hematocrit 35.8 % (42.0-52.0); Hemoglobin 11.5 g/dL (11.7-16.6); Lymphocytes # 1.1 10^3/uL (0.8-4.8); Lymphocytes % 19.6 %; Mean Corpuscular HGB Conc 32.1 g/dL (30.0-36.0); Mean Corpuscular Hemoglobin 32.4 pg (28.0-34.0); Mean Corpuscular Volume 100.8 fl (80-94); Mean Platelet Volume 9.7 fL (7.4-10.4); Monocytes # 0.6 10^3/uL (0.2-0.9); Monocytes % 10.1 %; Neutrophils # 3.96 10^3/uL (1.8-7.7); Neutrophils % 67.9 %; Nucleated Red Blood Cells % 0 %; Platelet Count 180 10^3/cmm (130-400); Red Blood Count 3.55 10^6/uL (4.1-5.3); Red Cell Distribution Width 14.1 % (12.1-15.1); White Blood Count 5.8 10^3/uL (4.0-10.0)
[2022-06-04 10:01] LABS: Alanine Aminotransferase 10 U/L (0-41); Albumin Level 3.6 g/dL (3.5-5.2); Alkaline Phosphatase 124 U/L (40-130); Anion Gap 16.7 (5-19); Aspartate Amino Transferase 18 U/L (0-40); Blood Urea Nitrogen 13 mg/dL (8-23); Calcium 8.1 mg/dL (8.5-10.5); Carbon Dioxide 23 mmol/L (22-29); Chloride 104 mmol/L (98-107); Globulin 2.6 g/dL (1.3-4.6); Glucose 94 mg/dL (65-115); Osmolality Calculated 290 mOsm/kg (285-295); Potassium 3.7 mmol/L (3.5-5.1); Sodium 140 mmol/L (136-145); Total Bilirubin 0.5 mg/dL (0.15-1.2); Total Protein 6.2 g/dL (6.6-8.7)
[2022-06-11] MEDS: denosumab 120 mg SDV SUBCUT (11:33)
[2022-06-11] MEDS: leuprolide 22.5 mg Kit IM (11:33)
== END 2022-06-18 23:59 | disposition home or self-care (01) ==
PROVIDERS: PCP Internal Medicine; Visit Provider Internal Medicine Hematology & Oncology
DX: C61 Malignant neoplasm of prostate (principal); Z79.818 Long term (current) use of other agents affecting estrogen receptors and estrogen levels; Z51.11 Encounter for antineoplastic chemotherapy
CPT/HCPCS: 36591; 80053; 84153; 85025; 96372; 96402; 99214; J0897; J9217

== ENCOUNTER 2022-07-09 09:56 | Oncology outpatient (recurring) (ONCR) | payer MEDICARE, BC, SELFPAY ==
[2022-07-09] MEDS: denosumab 120 mg SDV SUBCUT (10:18)
== END 2022-07-19 23:59 | disposition home or self-care (01) ==
PROVIDERS: PCP Internal Medicine; Visit Provider Internal Medicine Hematology & Oncology
DX: Z51.11 Encounter for antineoplastic chemotherapy (principal); C61 Malignant neoplasm of prostate; Z79.818 Long term (current) use of other agents affecting estrogen receptors and estrogen levels
CPT/HCPCS: 96372; J0897

== ENCOUNTER 2022-08-04 12:56 | Oncology outpatient (recurring) (ONCR) | payer MEDICARE, BC, SELFPAY ==
[2022-08-04 13:41] LABS: Basophils % 0.8 %; Eosinophils # 0.1 10^3/uL (0.0-0.8); Eosinophils % 2.8 %; Hematocrit 38.3 % (42.0-52.0); Hemoglobin 12.5 g/dL (11.7-16.6); Lymphocytes # 1.3 10^3/uL (0.8-4.8); Lymphocytes % 27.3 %; Mean Corpuscular HGB Conc 32.6 g/dL (30.0-36.0); Mean Corpuscular Hemoglobin 32.1 pg (28.0-34.0); Mean Corpuscular Volume 98.2 fl (80-94); Mean Platelet Volume 9.4 fL (7.4-10.4); Monocytes # 0.6 10^3/uL (0.2-0.9); Monocytes % 11.7 %; Neutrophils % 57.2 %; Nucleated Red Blood Cells % 0 %; Platelet Count 167 10^3/cmm (130-400); Red Cell Distribution Width 14.1 % (12.1-15.1); White Blood Count 4.7 10^3/uL (4.0-10.0)
[2022-08-04 14:10] LABS: Alanine Aminotransferase 12 U/L (0-41); Albumin Level 3.8 g/dL (3.5-5.2); Alkaline Phosphatase 91 U/L (40-130); Anion Gap 17.2 (5-19); Aspartate Amino Transferase 17 U/L (0-40); Blood Urea Nitrogen 17 mg/dL (8-23); Calcium 8.8 mg/dL (8.5-10.5); Carbon Dioxide 22 mmol/L (22-29); Chloride 104 mmol/L (98-107); Globulin 2.5 g/dL (1.3-4.6); Glucose 98 mg/dL (65-115); Osmolality Calculated 290 mOsm/kg (285-295); Potassium 4.2 mmol/L (3.5-5.1); Sodium 139 mmol/L (136-145); Total Bilirubin 0.3 mg/dL (0.15-1.2); Total Protein 6.3 g/dL (6.6-8.7)
== END 2022-08-18 23:59 | disposition home or self-care (01) ==
PROVIDERS: PCP Internal Medicine; Visit Provider Internal Medicine Hematology & Oncology
DX: C61 Malignant neoplasm of prostate; C79.51 Secondary malignant neoplasm of bone; R97.21 Rising PSA following treatment for malignant neoplasm of prostate; R53.83 Other fatigue; C77.8 Secondary and unspecified malignant neoplasm of lymph nodes of multiple regions; M48.54XA Collapsed vertebra, not elsewhere classified, thoracic region, initial encounter for fracture; I82.491 Acute embolism and thrombosis of other specified deep vein of right lower extremity; Z79.01 Long term (current) use of anticoagulants; Z79.52 Long term (current) use of systemic steroids; Z79.818 Long term (current) use of other agents affecting estrogen receptors and estrogen levels; Z79.899 Other long term (current) drug therapy; Z92.3 Personal history of irradiation
CPT/HCPCS: 36591; 80053; 84153; 85025; 99214

== ENCOUNTER 2022-09-06 09:00 | Oncology outpatient (recurring) (ONCR) | payer MEDICARE, BC, SELFPAY ==
[2022-08-20 11:03] LABS: Basophils % 0.6 %; Eosinophils # 0.2 10^3/uL (0.0-0.8); Eosinophils % 3.3 %; Hematocrit 36.9 % (42.0-52.0); Hemoglobin 12.2 g/dL (11.7-16.6); Lymphocytes # 1.3 10^3/uL (0.8-4.8); Mean Corpuscular HGB Conc 33.1 g/dL (30.0-36.0); Mean Corpuscular Hemoglobin 32.1 pg (28.0-34.0); Mean Corpuscular Volume 97.1 fl (80-94); Mean Platelet Volume 9.7 fL (7.4-10.4); Monocytes # 0.5 10^3/uL (0.2-0.9); Monocytes % 10.4 %; Neutrophils # 3.14 10^3/uL (1.8-7.7); Neutrophils % 60.3 %; Nucleated Red Blood Cells % 0 %; Platelet Count 146 10^3/cmm (130-400); Red Cell Distribution Width 13.6 % (12.1-15.1); White Blood Count 5.2 10^3/uL (4.0-10.0)
[2022-08-20 11:29] LABS: Alanine Aminotransferase 12 U/L (0-41); Albumin Level 3.8 g/dL (3.5-5.2); Alkaline Phosphatase 78 U/L (40-130); Aspartate Amino Transferase 18 U/L (0-40); Blood Urea Nitrogen 14 mg/dL (8-23); Calcium 8.4 mg/dL (8.5-10.5); Carbon Dioxide 22 mmol/L (22-29); Chloride 104 mmol/L (98-107); Globulin 2.3 g/dL (1.3-4.6); Glucose 92 mg/dL (65-115); Osmolality Calculated 280 mOsm/kg (285-295); Sodium 135 mmol/L (136-145); Total Bilirubin 0.4 mg/dL (0.15-1.2); Total Protein 6.1 g/dL (6.6-8.7)
[2022-09-06 09:16] LABS: Basophils # 0.1 10^3/uL (0.0-0.1); Eosinophils # 0.2 10^3/uL (0.0-0.8); Eosinophils % 4.2 %; Hematocrit 39.2 % (42.0-52.0); Hemoglobin 12.4 g/dL (11.7-16.6); Lymphocytes # 1.2 10^3/uL (0.8-4.8); Lymphocytes % 23.9 %; Mean Corpuscular HGB Conc 31.6 g/dL (30.0-36.0); Mean Corpuscular Hemoglobin 31.7 pg (28.0-34.0); Mean Corpuscular Volume 100.3 fl (80-94); Mean Platelet Volume 9.6 fL (7.4-10.4); Monocytes # 0.7 10^3/uL (0.2-0.9); Monocytes % 13.9 %; Neutrophils # 2.93 10^3/uL (1.8-7.7); Neutrophils % 56.6 %; Nucleated Red Blood Cells % 0 %; Platelet Count 165 10^3/cmm (130-400); Red Blood Count 3.91 10^6/uL (4.1-5.3); Red Cell Distribution Width 14.2 % (12.1-15.1); White Blood Count 5.2 10^3/uL (4.0-10.0)
[2022-09-06 09:50] LABS: Alanine Aminotransferase 11 U/L (0-41); Albumin Level 4.1 g/dL (3.5-5.2); Alkaline Phosphatase 72 U/L (40-130); Anion Gap 14.5 (5-19); Aspartate Amino Transferase 18 U/L (0-40); Blood Urea Nitrogen 15 mg/dL (8-23); Calcium 8.8 mg/dL (8.5-10.5); Carbon Dioxide 24 mmol/L (22-29); Chloride 104 mmol/L (98-107); Globulin 2.4 g/dL (1.3-4.6); Glucose 95 mg/dL (65-115); Osmolality Calculated 289 mOsm/kg (285-295); Potassium 3.5 mmol/L (3.5-5.1); Sodium 139 mmol/L (136-145); Total Bilirubin 0.5 mg/dL (0.15-1.2); Total Protein 6.5 g/dL (6.6-8.7)
[2022-09-06] MEDS: denosumab 120 mg SDV SUBCUT (12:06)
[2022-09-06] MEDS: leuprolide 22.5 mg Kit IM (12:09)
== END 2022-09-18 23:59 | disposition home or self-care (01) ==
PROVIDERS: PCP Internal Medicine; Visit Provider Internal Medicine Hematology & Oncology
DX: C61 Malignant neoplasm of prostate (principal); C77.8 Secondary and unspecified malignant neoplasm of lymph nodes of multiple regions; C79.51 Secondary malignant neoplasm of bone; R53.83 Other fatigue; M48.54XA Collapsed vertebra, not elsewhere classified, thoracic region, initial encounter for fracture; R60.0 Localized edema; M84.451A Pathological fracture, right femur, initial encounter for fracture; R97.21 Rising PSA following treatment for malignant neoplasm of prostate; I82.401 Acute embolism and thrombosis of unspecified deep veins of right lower extremity; Z79.01 Long term (current) use of anticoagulants; Z79.52 Long term (current) use of systemic steroids; Z79.818 Long term (current) use of other agents affecting estrogen receptors and estrogen levels; Z79.899 Other long term (current) drug therapy; Z87.891 Personal history of nicotine dependence
CPT/HCPCS: 36415; 36591; 80053; 84153; 85025; 96372; 96401; 99214; J0897; J9217

== ENCOUNTER 2022-09-08 13:09 | Outpatient (CLI) | payer MEDICARE, BC, SELFPAY ==
--- NOTE | 2022-09-08 14:00 | CT_ITS ---
WS: [id number] CT CHEST, ABDOMEN AND PELVIS WITH CONTRAST HISTORY: Prostate Cancer, assess treatment response TECHNIQUE: Contiguous 5 mm axial imaging performed through the chest, abdomen and pelvis with IV cont rast, oral contrast has been provided. Coronal and sagittal reformats chest. Coronal and sagittal ref ormats through the abdomen and pelvis. All CT scans at [facility] use at least one of these d ose optimization techniques: automated exposure control; mA and/or kV adjustment per patient size (in cludes targeted exams where dose is matched to clinical indication); or iterative reconstruction. CONTRAST: Omnipaque 350; 95 mL IV. DLP: 1472.55 mGy.cm COMPARISON: 01/18/2022, 04/18/[address]: Hyperexpanded lungs from emphysema. No pneumonia. Linear areas of scarring or atelectasis a t the lung bases. No mass or nodule. Mild atherosclerosis aorta and ectasia. Normal size pulmonary ar duane. RIGHT subclavian Mediport. Abdomen CT: Normal liver. Normal portal vein and gallbladder. Normal size spleen with granulomata. No rmal pancreas. Atherosclerosis aorta with mild ectasia and dilatation to 3 cm. Normal RIGHT kidney. N ormal size LEFT kidney with a large cyst measuring 5.3 x 4.8 cm. There are few other scattered cortic al hypodensities which are too small to characterize. No renal obstruction. No ascites. Mildly distended stomach. No small bowel obstruction. There some very mild fatty infiltration surroun ding the cecum. No mass identified or wall thickening. Pelvic CT: Normally distended urinary bladder with mild wall thickening. Patient has extensive known osteoblastic bone metastasis. Metastatic lesions are identified at T1, T4 , T5, T6, T10, T11 and the sacrum and RIGHT ilium. Additional metastatic sites present within the rib s. Prior RIGHT hip fixation. Metastatic bone disease has progressed since 01/18/2022. CT/CT chest abd pel w con* IMPRESSION: 1. Reidentified RIGHT iliac chain lymph nodes. The largest cluster of lymph no herminio is at the bifurcation of the RIGHT common iliac artery. Lymph node cluster measures 2.8 x 2.4 cm and partially encases the arteries. Not significantly keisha nged in size. Additional more proximal iliac lymph nodes are reidentified with the largest measuring 1.3 cm, not changed. 2. Osteoblastic metastatic disease in the spine, pelvis and ribs has progresse d. 3. No metastatic nodules within the chest or adenopathy. 4. LEFT renal cyst. 5. The omental thickening seen on the prior study has slightly improved. There is still a small amount of edema and omental thickening adjacent to the cecum and RIGHT colon. 6. Prior RIGHT hip fixation.
[2022-09-08] MEDS: iohexol 350 mg/mL 500 mL Btl (per mL) PO (14:10)
[2022-09-08] MEDS: iohexol 350 mg/mL 500 mL Btl (per mL) IV (14:12)
== END 2022-09-08 13:10 | disposition home or self-care (01) ==
LOC: RAD 13:10
PROVIDERS: PCP Internal Medicine; Visit Provider Internal Medicine Hematology & Oncology
DX: C61 Malignant neoplasm of prostate (principal); N28.1 Cyst of kidney, acquired
CPT/HCPCS: 71260; 74177; Q9967

== ENCOUNTER 2022-10-06 11:09 | Oncology outpatient (recurring) (ONCR) | payer MEDICARE, BC, SELFPAY ==
[2022-10-06 11:52] LABS: Basophils % 0.5 %; Eosinophils # 0.1 10^3/uL (0.0-0.8); Eosinophils % 3.3 %; Hematocrit 34.2 % (42.0-52.0); Hemoglobin 11.2 g/dL (11.7-16.6); Lymphocytes # 0.9 10^3/uL (0.8-4.8); Mean Corpuscular HGB Conc 32.7 g/dL (30.0-36.0); Mean Corpuscular Hemoglobin 32.2 pg (28.0-34.0); Mean Corpuscular Volume 98.3 fl (80-94); Mean Platelet Volume 9.9 fL (7.4-10.4); Monocytes # 0.5 10^3/uL (0.2-0.9); Monocytes % 11.9 %; Neutrophils # 2.65 10^3/uL (1.8-7.7); Neutrophils % 63.1 %; Nucleated Red Blood Cells % 0 %; Platelet Count 150 10^3/cmm (130-400); Red Blood Count 3.48 10^6/uL (4.1-5.3); Red Cell Distribution Width 13.5 % (12.1-15.1); White Blood Count 4.2 10^3/uL (4.0-10.0)
[2022-10-06 12:11] LABS: Alanine Aminotransferase 12 U/L (0-41); Albumin Level 3.6 g/dL (3.5-5.2); Alkaline Phosphatase 77 U/L (40-130); Anion Gap 11.3 (5-19); Aspartate Amino Transferase 17 U/L (0-40); Blood Urea Nitrogen 13 mg/dL (8-23); Calcium 8.7 mg/dL (8.5-10.5); Carbon Dioxide 25 mmol/L (22-29); Chloride 106 mmol/L (98-107); Globulin 2.3 g/dL (1.3-4.6); Glucose 102 mg/dL (65-115); Osmolality Calculated 286 mOsm/kg (285-295); Potassium 4.3 mmol/L (3.5-5.1); Sodium 138 mmol/L (136-145); Total Bilirubin 0.4 mg/dL (0.15-1.2); Total Protein 5.9 g/dL (6.6-8.7)
[2022-10-06] MEDS: denosumab 120 mg SDV SUBCUT (12:20)
[2022-10-06 12:27] VITALS: BP 133/77; PULSE 67; RESP 16; TEMP 36.3; O2SAT 99
== END 2022-10-19 23:59 | disposition home or self-care (01) ==
PROVIDERS: PCP Internal Medicine; Visit Provider Internal Medicine Hematology & Oncology
DX: C79.51 Secondary malignant neoplasm of bone; C61 Malignant neoplasm of prostate; Z79.899 Other long term (current) drug therapy
CPT/HCPCS: 36591; 80053; 85025; 96372; J0897

== ENCOUNTER 2022-11-03 08:37 | Outpatient (CLI) | payer MEDICARE, BC, SELFPAY ==
--- NOTE | 2022-11-03 10:00 | NM_ITS ---
WS: [id number] NUCLEAR MEDICINE BONE SCAN Radiopharmaceutical: 26.4 Tc-99m MDP mCi IV Injection site: LEFT antecubital Postinjection imaging delay: 1 hr CLINICAL INFORMATION: Prostate Cancer, assess treatment response COMPARISON: Bone scan January 18, [address] chest abdomen pelvis September 08, 2022 FINDINGS: Bone lesions: Progression of metastatic disease compared to the prior bone scan 5-22. Previously identified foci of uptake in the thoracic and lumbar spine are similar in appearance. Slig ht progression at the T6 level. Areas of uptake in approximately T4 slightly progressed. Additional n ew areas of focal metastatic disease at T11 and T12. Similar-appearing diffuse metastatic lesions involving the LEFT greater than RIGHT ribs. Stable punct ate focus of uptake involving the RIGHT inferior scapula. Stable activity involving the RIGHT ilium a nd intertrochanteric region RIGHT hip. Increased uptake involving the LEFT mandible slightly progress ed compared to previous and may be dentigerous. Soft tissue contours: Normal. Kidneys: Normal. Other findings: None. NM/NM bone scan whole body* [id number] IMPRESSION: 1. Mild progression of metastatic disease compared to previous 2. Progressed activity involving the T4 and T6 vertebral body. 3. New metastatic disease involving the lower thoracic spine approximately T11 and T12. 4. Stable uptake involving the L2 spinous process 5. Additional previously described areas of metastatic disease are similar in appearance.
== END 2022-11-03 08:38 | disposition home or self-care (01) ==
LOC: RAD 08:40
PROVIDERS: Visit Provider Internal Medicine Hematology & Oncology
DX: C61 Malignant neoplasm of prostate (principal); C79.51 Secondary malignant neoplasm of bone
CPT/HCPCS: 78306; A9561

== ENCOUNTER 2022-12-15 12:00 | Oncology outpatient (recurring) (ONCR) | payer MEDICARE, BC, SELFPAY ==
[2022-11-30 11:33] LABS: Basophils % 0.6 %; Eosinophils # 0.1 10^3/uL (0.0-0.8); Eosinophils % 2.1 %; Hematocrit 37.1 % (42.0-52.0); Hemoglobin 11.9 g/dL (11.7-16.6); Lymphocytes # 1.1 10^3/uL (0.8-4.8); Lymphocytes % 20.6 %; Mean Corpuscular HGB Conc 32.1 g/dL (30.0-36.0); Mean Corpuscular Hemoglobin 32.2 pg (28.0-34.0); Mean Corpuscular Volume 100.3 fl (80-94); Mean Platelet Volume 9.6 fL (7.4-10.4); Monocytes # 0.6 10^3/uL (0.2-0.9); Monocytes % 11.2 %; Neutrophils # 3.39 10^3/uL (1.8-7.7); Neutrophils % 65.3 %; Nucleated Red Blood Cells % 0 %; Platelet Count 151 10^3/cmm (130-400); Red Cell Distribution Width 13.2 % (12.1-15.1); White Blood Count 5.2 10^3/uL (4.0-10.0)
[2022-11-30 11:54] LABS: Alanine Aminotransferase 11 U/L (0-41); Albumin Level 4.2 g/dL (3.5-5.2); Alkaline Phosphatase 75 U/L (40-130); Anion Gap 14.1 (5-19); Aspartate Amino Transferase 17 U/L (0-40); Blood Urea Nitrogen 18 mg/dL (8-23); Calcium 8.8 mg/dL (8.5-10.5); Carbon Dioxide 22 mmol/L (22-29); Chloride 103 mmol/L (98-107); Globulin 2.2 g/dL (1.3-4.6); Glucose 97 mg/dL (65-115); Osmolality Calculated 282 mOsm/kg (285-295); Potassium 4.1 mmol/L (3.5-5.1); Sodium 135 mmol/L (136-145); Total Bilirubin 0.4 mg/dL (0.15-1.2); Total Protein 6.4 g/dL (6.6-8.7)
[2022-12-15 11:54] LABS: Basophils % 0.8 %; Eosinophils # 0.1 10^3/uL (0.0-0.8); Eosinophils % 1.7 %; Hematocrit 33.9 % (42.0-52.0); Hemoglobin 11.2 g/dL (11.7-16.6); Lymphocytes # 0.6 10^3/uL (0.8-4.8); Lymphocytes % 12.2 %; Mean Corpuscular Hemoglobin 32.8 pg (28.0-34.0); Mean Corpuscular Volume 99.4 fl (80-94); Mean Platelet Volume 9.3 fL (7.4-10.4); Monocytes # 0.5 10^3/uL (0.2-0.9); Monocytes % 9.9 %; Neutrophils # 3.87 10^3/uL (1.8-7.7); Neutrophils % 75.2 %; Nucleated Red Blood Cells % 0 %; Platelet Count 129 10^3/cmm (130-400); Red Blood Count 3.41 10^6/uL (4.1-5.3); Red Cell Distribution Width 12.9 % (12.1-15.1); White Blood Count 5.2 10^3/uL (4.0-10.0)
[2022-12-15 12:21] LABS: Alanine Aminotransferase 7 U/L (0-41); Albumin Level 3.3 g/dL (3.5-5.2); Alkaline Phosphatase 51 U/L (40-130); Anion Gap 12.8 (5-19); Aspartate Amino Transferase 12 U/L (0-40); Blood Urea Nitrogen 13 mg/dL (8-23); Calcium 7.1 mg/dL (8.5-10.5); Carbon Dioxide 18 mmol/L (22-29); Chloride 113 mmol/L (98-107); Globulin 1.8 g/dL (1.3-4.6); Glucose 83 mg/dL (65-115); Osmolality Calculated 289 mOsm/kg (285-295); Potassium 3.8 mmol/L (3.5-5.1); Sodium 140 mmol/L (136-145); Total Bilirubin 0.3 mg/dL (0.15-1.2); Total Protein 5.1 g/dL (6.6-8.7)
[2022-12-15] MEDS: leuprolide 22.5 mg Kit IM (15:23)
[2022-12-15 15:25] VITALS: BP 122/78; PULSE 78; RESP 18; TEMP 36.6; O2SAT 98
== END 2022-12-17 23:59 | disposition home or self-care (01) ==
PROVIDERS: Radiology Radiation Oncology; Visit Provider Internal Medicine Hematology & Oncology
DX: C61 Malignant neoplasm of prostate (principal); C77.8 Secondary and unspecified malignant neoplasm of lymph nodes of multiple regions; C79.51 Secondary malignant neoplasm of bone; I82.401 Acute embolism and thrombosis of unspecified deep veins of right lower extremity; Z79.01 Long term (current) use of anticoagulants; Z79.52 Long term (current) use of systemic steroids; Z79.818 Long term (current) use of other agents affecting estrogen receptors and estrogen levels; Z79.899 Other long term (current) drug therapy
CPT/HCPCS: 36591; 80053; 84153; 85025; 96402; 99214; J9217

== ENCOUNTER 2023-01-12 12:00 | Oncology outpatient (recurring) (ONCR) | payer MEDICARE, BC, SELFPAY ==
[2022-12-29 11:31] VITALS: BP 108/69; PULSE 67; TEMP 36.6; O2SAT 96
[2022-12-29 11:31] LABS: Basophils % 0.5 %; Eosinophils # 0.1 10^3/uL (0.0-0.8); Eosinophils % 2.3 %; Hematocrit 35.2 % (42.0-52.0); Hemoglobin 11.6 g/dL (11.7-16.6); Lymphocytes # 0.8 10^3/uL (0.8-4.8); Lymphocytes % 17.2 %; Mean Corpuscular Volume 100.3 fl (80-94); Mean Platelet Volume 8.9 fL (7.4-10.4); Monocytes # 0.5 10^3/uL (0.2-0.9); Monocytes % 11.6 %; Neutrophils % 67.9 %; Nucleated Red Blood Cells % 0 %; Platelet Count 151 10^3/cmm (130-400); Red Blood Count 3.51 10^6/uL (4.1-5.3); Red Cell Distribution Width 13.1 % (12.1-15.1); White Blood Count 4.4 10^3/uL (4.0-10.0)
[2022-12-29] MEDS: denosumab 120 mg SDV SUBCUT (11:32)
[2022-12-29 12:02] LABS: Alanine Aminotransferase 12 U/L (0-41); Albumin Level 3.9 g/dL (3.5-5.2); Alkaline Phosphatase 64 U/L (40-130); Anion Gap 12.3 (5-19); Aspartate Amino Transferase 16 U/L (0-40); Blood Urea Nitrogen 15 mg/dL (8-23); Calcium 8.4 mg/dL (8.5-10.5); Carbon Dioxide 23 mmol/L (22-29); Chloride 108 mmol/L (98-107); Globulin 2.4 g/dL (1.3-4.6); Glucose 95 mg/dL (65-115); Osmolality Calculated 289 mOsm/kg (285-295); Potassium 4.3 mmol/L (3.5-5.1); Sodium 139 mmol/L (136-145); Total Bilirubin 0.4 mg/dL (0.15-1.2); Total Protein 6.3 g/dL (6.6-8.7)
== END 2023-01-16 23:59 | disposition home or self-care (01) ==
PROVIDERS: Visit Provider Internal Medicine Hematology & Oncology
DX: Z53.9 Procedure and treatment not carried out, unspecified reason
CPT/HCPCS: 36591; 80053; 84153; 85025; 96372; J0897

== ENCOUNTER → 2023-01-17 08:40 | Outpatient (BNVA) | payer MEDICARE, BC, SELFPAY | PROVIDERS: Visit Provider Nurse Practitioner Family | DX: D22.9 Melanocytic nevi, unspecified (principal); L81.4 Other melanin hyperpigmentation; Z71.89 Other specified counseling; L82.1 Other seborrheic keratosis; D69.2 Other nonthrombocytopenic purpura; L82.0 Inflamed seborrheic keratosis; L85.3 Xerosis cutis; L57.0 Actinic keratosis; L57.8 Other skin changes due to chronic exposure to nonionizing radiation | CPT/HCPCS: 17004; 17110; 99213 ==

== ENCOUNTER 2023-02-10 10:26 | Oncology outpatient (recurring) (ONCR) | payer MEDICARE, BC, SELFPAY ==
[2023-02-10 12:20] VITALS: BP 110/71; PULSE 59; RESP 18; TEMP 36.4; O2SAT 98
[2023-02-10 12:42] LABS: Basophils % 0.6 %; Eosinophils # 0.1 10^3/uL (0.0-0.8); Eosinophils % 2.3 %; Hematocrit 35.4 % (42.0-52.0); Hemoglobin 11.7 g/dL (11.7-16.6); Lymphocytes # 0.8 10^3/uL (0.8-4.8); Lymphocytes % 16.6 %; Mean Corpuscular HGB Conc 33.1 g/dL (30.0-36.0); Mean Corpuscular Hemoglobin 33.2 pg (28.0-34.0); Mean Corpuscular Volume 100.6 fl (80-94); Mean Platelet Volume 9.3 fL (7.4-10.4); Monocytes # 0.6 10^3/uL (0.2-0.9); Monocytes % 12.7 %; Neutrophils # 3.25 10^3/uL (1.8-7.7); Neutrophils % 67.6 %; Nucleated Red Blood Cells % 0 %; Platelet Count 140 10^3/cmm (130-400); Red Blood Count 3.52 10^6/uL (4.1-5.3); White Blood Count 4.8 10^3/uL (4.0-10.0)
[2023-02-10] MEDS: denosumab 120 mg SDV SUBCUT (13:01)
[2023-02-10 13:10] LABS: Alanine Aminotransferase 12 U/L (0-41); Albumin Level 4.1 g/dL (3.5-5.2); Alkaline Phosphatase 66 U/L (40-130); Anion Gap 13.4 (5-19); Aspartate Amino Transferase 21 U/L (0-40); Blood Urea Nitrogen 14 mg/dL (8-23); Calcium 8.6 mg/dL (8.5-10.5); Carbon Dioxide 22 mmol/L (22-29); Chloride 104 mmol/L (98-107); Globulin 2.4 g/dL (1.3-4.6); Glucose 112 mg/dL (65-115); Osmolality Calculated 281 mOsm/kg (285-295); Potassium 4.4 mmol/L (3.5-5.1); Prostate Specific Antigen 0.692 ng/mL (0-4); Sodium 135 mmol/L (136-145); Total Bilirubin 0.4 mg/dL (0.15-1.2); Total Protein 6.5 g/dL (6.6-8.7)
[2023-02-10 13:25] VITALS: BP 110/71; PULSE 61; RESP 18; TEMP 36.4
== END 2023-02-16 23:59 | disposition home or self-care (01) ==
PROVIDERS: Visit Provider Internal Medicine Hematology & Oncology
DX: Z51.11 Encounter for antineoplastic chemotherapy (principal); C79.51 Secondary malignant neoplasm of bone; C61 Malignant neoplasm of prostate
CPT/HCPCS: 80053; 84153; 85025; 96372; J0897; J1642

== ENCOUNTER 2023-03-16 14:05 | Oncology outpatient (recurring) (ONCR) | payer MEDICARE, BC, SELFPAY ==
[2023-03-16 14:14] VITALS: BP 116/70; PULSE 87; RESP 18; TEMP 36.4; O2SAT 98
[2023-03-16 14:26] LABS: Eosinophils # 0.2 10^3/uL (0.0-0.8); Eosinophils % 3.8 %; Hematocrit 33.6 % (42.0-52.0); Hemoglobin 11.1 g/dL (11.7-16.6); Lymphocytes # 0.8 10^3/uL (0.8-4.8); Lymphocytes % 19.3 %; Mean Corpuscular Hemoglobin 32.8 pg (28.0-34.0); Mean Corpuscular Volume 99.4 fl (80-94); Mean Platelet Volume 9.4 fL (7.4-10.4); Monocytes # 0.5 10^3/uL (0.2-0.9); Neutrophils % 62.6 %; Nucleated Red Blood Cells % 0 %; Platelet Count 143 10^3/cmm (130-400); Red Blood Count 3.38 10^6/uL (4.1-5.3); Red Cell Distribution Width 12.8 % (12.1-15.1)
[2023-03-16 14:57] LABS: Alanine Aminotransferase 10 U/L (0-41); Albumin Level 3.9 g/dL (3.5-5.2); Alkaline Phosphatase 73 U/L (40-130); Anion Gap 13.9 (5-19); Aspartate Amino Transferase 17 U/L (0-40); Blood Urea Nitrogen 12 mg/dL (8-23); Calcium 8.6 mg/dL (8.5-10.5); Carbon Dioxide 23 mmol/L (22-29); Chloride 103 mmol/L (98-107); Globulin 2.3 g/dL (1.3-4.6); Glucose 105 mg/dL (65-115); Osmolality Calculated 282 mOsm/kg (285-295); Potassium 3.9 mmol/L (3.5-5.1); Prostate Specific Antigen 0.417 ng/mL (0-4); Sodium 136 mmol/L (136-145); Total Bilirubin 0.4 mg/dL (0.15-1.2); Total Protein 6.2 g/dL (6.6-8.7)
[2023-03-16 15:35] VITALS: BP 114/78; PULSE 71; RESP 18; TEMP 36.4
[2023-03-16 15:44] VITALS: BP 121/77; PULSE 96; RESP 18; TEMP 36.4; O2SAT 99
[2023-03-16] MEDS: denosumab 120 mg SDV SUBCUT (15:48)
== END 2023-03-18 23:59 | disposition home or self-care (01) ==
PROVIDERS: Visit Provider Internal Medicine Hematology & Oncology
DX: C77.8 Secondary and unspecified malignant neoplasm of lymph nodes of multiple regions (principal); C79.51 Secondary malignant neoplasm of bone; R97.21 Rising PSA following treatment for malignant neoplasm of prostate; R53.83 Other fatigue; M48.54XA Collapsed vertebra, not elsewhere classified, thoracic region, initial encounter for fracture; I82.491 Acute embolism and thrombosis of other specified deep vein of right lower extremity; Z79.01 Long term (current) use of anticoagulants; Z79.52 Long term (current) use of systemic steroids; Z79.818 Long term (current) use of other agents affecting estrogen receptors and estrogen levels; Z79.899 Other long term (current) drug therapy; Z92.3 Personal history of irradiation; C61 Malignant neoplasm of prostate; D64.9 Anemia, unspecified
CPT/HCPCS: 36591; 80053; 84153; 85025; 96401; 99214; J0897; J1642

== ENCOUNTER 2023-03-23 10:41 | Oncology outpatient (recurring) (ONCR) | payer MEDICARE, BC, SELFPAY ==
[2023-03-23 10:46] VITALS: BP 101/64; PULSE 93; RESP 18; TEMP 36.7; O2SAT 92
[2023-03-23 10:59] LABS: Basophils % 0.4 %; Eosinophils # 0.1 10^3/uL (0.0-0.8); Eosinophils % 2.2 %; Hematocrit 35.5 % (42.0-52.0); Lymphocytes # 0.9 10^3/uL (0.8-4.8); Lymphocytes % 18.2 %; Mean Corpuscular HGB Conc 33.8 g/dL (30.0-36.0); Mean Corpuscular Hemoglobin 33.9 pg (28.0-34.0); Mean Corpuscular Volume 100.3 fl (80-94); Mean Platelet Volume 9.6 fL (7.4-10.4); Monocytes # 0.6 10^3/uL (0.2-0.9); Monocytes % 12.1 %; Neutrophils % 66.7 %; Nucleated Red Blood Cells % 0 %; Platelet Count 142 10^3/cmm (130-400); Red Blood Count 3.54 10^6/uL (4.1-5.3); Red Cell Distribution Width 12.7 % (12.1-15.1)
[2023-03-23 11:31] LABS: Alanine Aminotransferase 10 U/L (0-41); Albumin Level 4.1 g/dL (3.5-5.2); Alkaline Phosphatase 68 U/L (40-130); Anion Gap 15.2 (5-19); Aspartate Amino Transferase 17 U/L (0-40); Blood Urea Nitrogen 18 mg/dL (8-23); Calcium 8.8 mg/dL (8.5-10.5); Carbon Dioxide 24 mmol/L (22-29); Chloride 104 mmol/L (98-107); Globulin 2.4 g/dL (1.3-4.6); Glucose 90 mg/dL (65-115); Osmolality Calculated 289 mOsm/kg (285-295); Potassium 4.2 mmol/L (3.5-5.1); Prostate Specific Antigen 0.403 ng/mL (0-4); Sodium 139 mmol/L (136-145); Total Bilirubin 0.4 mg/dL (0.15-1.2); Total Protein 6.5 g/dL (6.6-8.7)
== END 2023-04-18 23:59 | disposition home or self-care (01) ==
PROVIDERS: Radiology Radiation Oncology; Visit Provider Internal Medicine Hematology & Oncology
DX: C61 Malignant neoplasm of prostate (principal)
CPT/HCPCS: 36591; 80053; 84153; 85025; J1642

== ENCOUNTER 2023-06-16 10:56 | Oncology outpatient (recurring) (ONCR) | payer MEDICARE, BC, SELFPAY ==
[2023-06-16 11:40] VITALS: BP 100/66; PULSE 99; RESP 16; TEMP 36.8
[2023-06-16 11:54] LABS: Basophils % 0.6 %; Eosinophils # 0.1 10^3/uL (0.0-0.8); Eosinophils % 2.4 %; Hematocrit 33.7 % (37-53); Lymphocytes # 0.6 10^3/uL (0.8-4.8); Lymphocytes % 10.8 %; Mean Corpuscular HGB Conc 33.5 g/dL (30-55); Mean Corpuscular Hemoglobin 33.4 pg (27-33); Mean Corpuscular Volume 99.7 fl (82-101); Mean Platelet Volume 9.7 fL (7.4-10.4); Monocytes # 0.6 10^3/uL (0.2-0.9); Monocytes % 11.6 %; Neutrophils # 4.06 10^3/uL (1.8-7.7); Neutrophils % 74.4 %; Nucleated Red Blood Cells % 0 %; Platelet Count 147 10^3/cmm (157-399); Red Blood Count 3.38 10^6/uL (3.85-5.65); Red Cell Distribution Width 13.1 % (12.1-15.1); White Blood Count 5.45 10^3/uL (3.29-11.43)
[2023-06-16 12:28] LABS: Alanine Aminotransferase 8 U/L (0-41); Alkaline Phosphatase 75 U/L (40-130); Anion Gap 13.7 (5-19); Aspartate Amino Transferase 14 U/L (0-40); Blood Urea Nitrogen 18 mg/dL (8-23); Calcium 8.8 mg/dL (8.5-10.5); Carbon Dioxide 25 mmol/L (22-29); Chloride 105 mmol/L (98-107); Globulin 2.5 g/dL (1.3-4.6); Glucose 95 mg/dL (65-115); Osmolality Calculated 292 mOsm/kg (285-295); Potassium 3.7 mmol/L (3.5-5.1); Prostate Specific Antigen 0.239 ng/mL (0-4); Sodium 140 mmol/L (136-145); Total Bilirubin 0.3 mg/dL (0.15-1.2); Total Protein 6.5 g/dL (6.6-8.7)
== END 2023-06-18 23:59 | disposition home or self-care (01) ==
PROVIDERS: Internal Medicine Medical Oncology; Visit Provider Internal Medicine Hematology & Oncology
DX: C77.8 Secondary and unspecified malignant neoplasm of lymph nodes of multiple regions (principal); C79.51 Secondary malignant neoplasm of bone; R97.21 Rising PSA following treatment for malignant neoplasm of prostate; R53.83 Other fatigue; M48.54XA Collapsed vertebra, not elsewhere classified, thoracic region, initial encounter for fracture; I82.491 Acute embolism and thrombosis of other specified deep vein of right lower extremity; Z79.01 Long term (current) use of anticoagulants; Z79.52 Long term (current) use of systemic steroids; Z79.818 Long term (current) use of other agents affecting estrogen receptors and estrogen levels; Z79.899 Other long term (current) drug therapy; Z92.3 Personal history of irradiation; C61 Malignant neoplasm of prostate; N40.0 Benign prostatic hyperplasia without lower urinary tract symptoms; Z51.11 Encounter for antineoplastic chemotherapy; Z95.828 Presence of other vascular implants and grafts
CPT/HCPCS: 36591; 80053; 84153; 85025; 99214; J1642

== ENCOUNTER → 2023-06-20 11:45 | Outpatient (BNVA) | payer MEDICARE, BC, SELFPAY | PROVIDERS: Visit Provider Nurse Practitioner Family | DX: J32.0 Chronic maxillary sinusitis (principal) | CPT/HCPCS: 87486; 87581; 87633 ==

== ENCOUNTER 2023-06-23 08:33 | Oncology outpatient (recurring) (ONCR) | payer MEDICARE, BC, SELFPAY ==
[2023-06-23 09:11] VITALS: BP 141/70; PULSE 68; RESP 17; TEMP 35.7; O2SAT 95
[2023-06-23] MEDS: denosumab 120 mg SDV SUBCUT (09:15)
== END 2023-07-19 23:59 | disposition home or self-care (01) ==
PROVIDERS: Visit Provider Internal Medicine Medical Oncology
DX: C61 Malignant neoplasm of prostate; Z51.11 Encounter for antineoplastic chemotherapy
CPT/HCPCS: 96372; J0897

== ENCOUNTER → 2023-06-24 13:06 | Outpatient (BNVA) | payer MEDICARE, BC, SELFPAY | PROVIDERS: Visit Provider Nurse Practitioner Family | DX: R19.7 Diarrhea, unspecified (principal) | CPT/HCPCS: 87324; 87449 ==

== ENCOUNTER 2023-09-15 09:19 | Oncology outpatient (recurring) (ONCR) | payer MEDICARE, BC, SELFPAY ==
[2023-09-15 10:00] VITALS: BP 122/75; PULSE 74; RESP 16; TEMP 36.7; O2SAT 93
[2023-09-15 10:06] LABS: Basophils % 0.5 %; Eosinophils # 0.1 10^3/uL (0.0-0.8); Hematocrit 33.5 % (37-53); Lymphocytes # 0.7 10^3/uL (0.8-4.8); Lymphocytes % 18.6 %; Mean Corpuscular HGB Conc 33.4 g/dL (30-55); Mean Corpuscular Hemoglobin 32.7 pg (27-33); Mean Corpuscular Volume 97.7 fl (82-101); Mean Platelet Volume 9.6 fL (7.4-10.4); Monocytes # 0.5 10^3/uL (0.2-0.9); Monocytes % 12.3 %; Neutrophils % 65.3 %; Nucleated Red Blood Cells % 0 %; Platelet Count 145 10^3/cmm (157-399); Red Blood Count 3.43 10^6/uL (3.85-5.65); Red Cell Distribution Width 13.1 % (12.1-15.1); White Blood Count 3.98 10^3/uL (3.29-11.43)
[2023-09-15 10:38] LABS: Alanine Aminotransferase 11 U/L (0-41); Albumin Level 3.9 g/dL (3.5-5.2); Alkaline Phosphatase 62 U/L (40-130); Anion Gap 14.7 (5-19); Aspartate Amino Transferase 18 U/L (0-40); Blood Urea Nitrogen 11 mg/dL (8-23); Calcium 8.7 mg/dL (8.5-10.5); Carbon Dioxide 26 mmol/L (22-29); Chloride 102 mmol/L (98-107); Globulin 2.2 g/dL (1.3-4.6); Glucose 101 mg/dL (65-115); Osmolality Calculated 288 mOsm/kg (285-295); Potassium 3.7 mmol/L (3.5-5.1); Prostate Specific Antigen 0.192 ng/mL (0-4); Sodium 139 mmol/L (136-145); Testosterone Total 2.5 ng/dL (193-740); Total Bilirubin 0.3 mg/dL (0.15-1.2); Total Protein 6.1 g/dL (6.6-8.7)
[2023-09-15] MEDS: denosumab 120 mg SDV SUBCUT (11:47)
== END 2023-09-18 23:59 | disposition home or self-care (01) ==
PROVIDERS: Visit Provider Internal Medicine Medical Oncology
DX: Z51.11 Encounter for antineoplastic chemotherapy (principal); C61 Malignant neoplasm of prostate; Z53.9 Procedure and treatment not carried out, unspecified reason; Z79.899 Other long term (current) drug therapy
CPT/HCPCS: 36591; 80053; 84153; 84403; 85025; 96401; 99214; J0897; J1642

== ENCOUNTER 2023-12-14 13:09 | Oncology outpatient (recurring) (ONCR) | payer MEDICARE, BC, MEDICAID, SELFPAY ==
[2023-12-14 13:34] LABS: Basophils % 0.4 %; Eosinophils # 0.1 10^3/uL (0.0-0.8); Eosinophils % 2.1 %; Lymphocytes % 21.2 %; Mean Corpuscular HGB Conc 33.2 g/dL (30-55); Mean Corpuscular Hemoglobin 33.1 pg (27-33); Mean Corpuscular Volume 99.7 fl (82-101); Mean Platelet Volume 9.5 fL (7.4-10.4); Monocytes # 0.5 10^3/uL (0.2-0.9); Monocytes % 9.4 %; Neutrophils # 3.17 10^3/uL (1.8-7.7); Neutrophils % 66.5 %; Nucleated Red Blood Cells % 0 %; Platelet Count 142 10^3/cmm (157-399); Red Blood Count 3.41 10^6/uL (3.85-5.65); Red Cell Distribution Width 13.1 % (12.1-15.1); White Blood Count 4.77 10^3/uL (3.29-11.43)
[2023-12-14 14:38] LABS: Alanine Aminotransferase 14 U/L (0-41); Albumin Level 3.9 g/dL (3.5-5.2); Alkaline Phosphatase 51 U/L (40-130); Aspartate Amino Transferase 18 U/L (0-40); Blood Urea Nitrogen 24 mg/dL (8-23); Calcium 8.6 mg/dL (8.5-10.5); Carbon Dioxide 22 mmol/L (22-29); Chloride 107 mmol/L (98-107); Globulin 2.3 g/dL (1.3-4.6); Glucose 91 mg/dL (65-115); Osmolality Calculated 292 mOsm/kg (285-295); Prostate Specific Antigen 0.203 ng/mL (0-4); Sodium 139 mmol/L (136-145); Total Bilirubin 0.3 mg/dL (0.15-1.2); Total Protein 6.2 g/dL (6.6-8.7)
[2023-12-14 15:26] LABS: Testosterone Total 2.5 ng/dL (193-740)
[2023-12-14] MEDS: denosumab 120 mg SDV SUBCUT (15:35)
== END 2023-12-18 23:59 | disposition home or self-care (01) ==
PROVIDERS: Nurse Practitioner Family; Visit Provider Internal Medicine Medical Oncology
DX: Z53.9 Procedure and treatment not carried out, unspecified reason (principal); C61 Malignant neoplasm of prostate
CPT/HCPCS: 36591; 80053; 84153; 84403; 85025; 96372; 99214; J0897

== ENCOUNTER 2024-03-07 10:52 | Oncology outpatient (recurring) (ONCR) | payer MEDICARE, BC, MEDICAID, SELFPAY ==
[2024-03-07 11:11] LABS: Basophils % 0.5 %; Eosinophils # 0.1 10^3/uL (0.0-0.8); Eosinophils % 2.3 %; Hematocrit 36.2 % (37-53); Lymphocytes # 1.2 10^3/uL (0.8-4.8); Lymphocytes % 20.5 %; Mean Corpuscular HGB Conc 33.4 g/dL (30-55); Mean Corpuscular Volume 98.6 fl (82-101); Mean Platelet Volume 9.5 fL (7.4-10.4); Monocytes # 0.6 10^3/uL (0.2-0.9); Monocytes % 9.7 %; Neutrophils % 66.8 %; Nucleated Red Blood Cells % 0 %; Platelet Count 165 10^3/cmm (157-399); Red Blood Count 3.67 10^6/uL (3.85-5.65); Red Cell Distribution Width 12.6 % (12.1-15.1); White Blood Count 5.99 10^3/uL (3.29-11.43)
[2024-03-07 11:38] LABS: Alanine Aminotransferase 13 U/L (0-41); Alkaline Phosphatase 61 U/L (40-130); Anion Gap 17.4 (5-19); Aspartate Amino Transferase 17 U/L (0-40); Blood Urea Nitrogen 24 mg/dL (8-23); Calcium 8.8 mg/dL (8.5-10.5); Carbon Dioxide 22 mmol/L (22-29); Chloride 101 mmol/L (98-107); Globulin 2.7 g/dL (1.3-4.6); Glucose 104 mg/dL (65-115); Osmolality Calculated 286 mOsm/kg (285-295); Potassium 4.4 mmol/L (3.5-5.1); Prostate Specific Antigen 0.263 ng/mL (0-4); Sodium 136 mmol/L (136-145); Testosterone Total 2.5 ng/dL (193-740); Total Bilirubin 0.3 mg/dL (0.15-1.2); Total Protein 6.7 g/dL (6.6-8.7)
[2024-03-07] MEDS: denosumab 120 mg SDV SUBCUT (14:26)
== END 2024-03-18 23:59 | disposition home or self-care (01) ==
PROVIDERS: Visit Provider Internal Medicine Medical Oncology
DX: C61 Malignant neoplasm of prostate; Z79.899 Other long term (current) drug therapy; C79.51 Secondary malignant neoplasm of bone
CPT/HCPCS: 36591; 80053; 84153; 84403; 85025; 96372; 99214; J0897

== ENCOUNTER 2024-06-01 08:05 | Oncology outpatient (recurring) (ONCR) | payer MEDICARE, MEDICAID, SELFPAY ==
[2024-06-01 09:23] LABS: Basophils % 0.7 %; Eosinophils # 0.1 10^3/uL (0.0-0.8); Hematocrit 35.2 % (37-53); Lymphocytes # 0.8 10^3/uL (0.8-4.8); Lymphocytes % 15.6 %; Mean Corpuscular HGB Conc 32.4 g/dL (30-55); Mean Corpuscular Hemoglobin 32.5 pg (27-33); Mean Corpuscular Volume 100.3 fl (82-101); Mean Platelet Volume 9.7 fL (7.4-10.4); Monocytes # 0.5 10^3/uL (0.2-0.9); Monocytes % 8.9 %; Neutrophils # 3.91 10^3/uL (1.8-7.7); Neutrophils % 72.4 %; Nucleated Red Blood Cells % 0 %; Platelet Count 162 10^3/cmm (157-399); Red Blood Count 3.51 10^6/uL (3.85-5.65)
[2024-06-01 09:52] LABS: Alanine Aminotransferase 11 U/L (0-41); Albumin Level 3.8 g/dL (3.5-5.2); Alkaline Phosphatase 57 U/L (40-130); Anion Gap 15.8 (5-19); Aspartate Amino Transferase 17 U/L (0-40); Blood Urea Nitrogen 21 mg/dL (8-23); Calcium 8.7 mg/dL (8.5-10.5); Carbon Dioxide 23 mmol/L (22-29); Chloride 108 mmol/L (98-107); Globulin 2.5 g/dL (1.3-4.6); Glucose 89 mg/dL (65-115); Osmolality Calculated 298 mOsm/kg (285-295); Potassium 3.8 mmol/L (3.5-5.1); Prostate Specific Antigen 0.336 ng/mL (0-4); Sodium 143 mmol/L (136-145); Testosterone Total 2.5 ng/dL (193-740); Total Bilirubin 0.3 mg/dL (0.15-1.2); Total Protein 6.3 g/dL (6.6-8.7)
== END 2024-06-18 23:59 | disposition home or self-care (01) ==
LOC: ONCMED 08:05
PROVIDERS: Visit Provider Internal Medicine Medical Oncology
DX: C61 Malignant neoplasm of prostate (principal); C79.51 Secondary malignant neoplasm of bone
CPT/HCPCS: 36415; 80053; 84153; 84403; 85025

== ENCOUNTER 2024-06-14 14:29 | Outpatient (CLI) | payer MEDICARE, MEDICAID, SELFPAY ==
--- NOTE | 2024-06-14 14:45 | CT_ITS ---
WS: [id number] CT FACIAL BONES TECHNIQUE: Contrast-enhanced facial bones with coronal and sagittal reformatted images. CLINICAL INFORMATION: left jaw pain; prostate cancer COMPARISON: Bone scan 11/03/2022 DLP: 623.[address] scans at [facility] use at least one of these dose optimization techniques: automated e xposure control; mA and/or kV adjustment per patient size (includes targeted exams where dose is matc hed to clinical indication); or iterative reconstruction. FINDINGS: Prior bone scan demonstrates focal activity in the LEFT mandible as previously described. Dental artifact degrades detailed evaluation of the mandible. Presumed dental resection cavity within the LEFT mandible involving the third molar or second premolar. Associated air in the presumed resec tion bed. Small amount of induration and air within this area. Recommend correlation for LEFT facial cellulitis and dentigerous infection. No other visualized mandibular lesions. CT/CT facial bones w con [id number] IMPRESSION: Images significantly degraded in the area of concern due to extensi ve dental artifact. 1. Resection cavity or chronic erosion involving the LEFT mandible with associ ated air and mild soft tissue edema. Recommend correlation for LEFT dental infe ction. Small amount of overlying facial cellulitis in this area. No drainable a bscess. 2. No other acute findings
[2024-06-14] MEDS: iohexol 350 mg/mL 500 mL Btl (per mL) IV (15:11)
== END 2024-06-14 14:30 | disposition home or self-care (01) ==
LOC: RAD 14:30
PROVIDERS: Visit Provider Internal Medicine Medical Oncology
DX: C61 Malignant neoplasm of prostate (principal); C79.51 Secondary malignant neoplasm of bone; R68.84 Jaw pain; R93.0 Abnormal findings on diagnostic imaging of skull and head, not elsewhere classified
CPT/HCPCS: 70487